=== PATIENT | male | born 1935 | race Caucasian/White ===

== ENCOUNTER → 2016-07-25 | Outpatient (CLI) | payer MEDICARE ==
--- NOTE | 2016-07-25 15:19 | MR ---
EXAMINATION TYPE: MR brain and iac wo con DATE OF EXAM: 07/25/2016 2:59 PM COMPARISON: NONE HISTORY: 80-year-old male with right hearing loss, tinnitus TECHNIQUE: Multiplanar, multisequence images of the brain and brainstem were acquired without IV con trast. Diffusion weighted imaging was performed. Additional coned-down sequences through the interna l auditory canals and posterior cranial fossa without IV contrast administration. FINDINGS: Diffusion weighted images demonstrate no evidence of an acute ischemic lesion in the brain. T2/FLAIR weighted sequences show scattered mild burden of bright white matter change with 5 foci in t he right and 5-10 foci on the left. Midline structures demonstrate enlargement of the pituitary gland with a craniocaudal dimension of 1. 0 cm. The craniocervical junction is normal. There is moderate generalized supratentorial volume loss. No hydrocephalus. There is no evidence of an acute intracranial hemorrhage, infarct, mass, mass-effect or an extra-axia l fluid collection. There is no cerebellopontine angle mass. The internal auditory canals are symmetric. Brainstem and skull base abnormalities are not seen. Moderate mucosal thickening throughout the ethmoid air cells and mild throughout the remainder of the paranasal sinuses. Globes are intact. There is extensive opacification of the right mastoid air cell s. IMPRESSION: 1. No acute intracranial abnormality seen. There is moderate atrophy and mild scattered burden of T2 bright white matter change likely relating to chronic small vessel ischemic disease. 2. Extensive opacification of the right mastoid air cells. Correlate for mastoiditis. Physical exam c an assess the tympanic membrane and middle ear to exclude a concurrent otitis media. 3. The pituitary gland measures large in a patient of this age. An underlying pituitary adenoma or cy st is difficult to exclude. Consider pituitary MRI to further evaluate. 4. 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
== END | disposition home or self-care (01) ==
LOC: RADMRIMAIN 12:53
PROVIDERS: ATTEND Nurse Practitioner Family
DX: H91.91 Unspecified hearing loss, right ear (principal); H93.11 Tinnitus, right ear
CPT/HCPCS: 70551; 82565; 84520

== ENCOUNTER → 2016-08-14 | Outpatient (CLI) | payer MEDICARE ==
--- NOTE | 2016-08-14 11:28 | MR ---
EXAMINATION TYPE: MR pituitary wo con DATE OF EXAM: 08/14/2016 10:57 AM COMPARISON: 07/25/2016 HISTORY: Pituitary gland enlargement, No contrast-GFR is 27 Technique: T1 noncontrast sagittal and T1 noncontrast fat saturation coronal, T2 coronal views of the sella turcica submitted. Findings: Exam significantly limited due to lack of contrast. Evaluation the pituitary typically requires contr ast however the patient's GFR was too low to receive contrast. GFR is 27. Relative to the previous study pituitary gland is stable in size. The pituitary stalk appears to be f airly midline. Visualized vasculature demonstrate normal signal voids. Pituitary gland measures 8 mm on today's exam is prominent for the patient's age group. Intracranial structures demonstrate mild degenerative changes. Craniocervical junction maintained. IMPRESSION: 1. Severely limited exam due to the lack of contrast secondary to the patient's low GFR (27). Grossly the pituitary gland measures 8 mm in size and the stalk appears midline. No evidence of pituitary cy st. Assessment for intrinsic neoplasm would require contrast administration.
== END | disposition home or self-care (01) ==
LOC: RADMRIMAIN 09:37
PROVIDERS: ATTEND Otolaryngology
DX: E23.6 Other disorders of pituitary gland (principal)
CPT/HCPCS: 36415; 70551; 82565

== ENCOUNTER 2016-11-21 17:12 | Emergency (ER) | payer MEDICARE ==
[2016-11-21 17:28] VITALS: RESP 18
--- NOTE | 2016-11-21 17:34 | ED ---
General Adult HPI - General Chief complaint: Wound/Laceration Stated complaint: Right Hand Lac Time Seen by Provider: 11/21/16 17:28 Source: patient, RN notes reviewed Mode of arrival: ambulatory Limitations: no limitations - History of Present Illness Initial comments: Patient is an 81-year-old male who presents emergency room today with a chief complaint of a injury to the left hand that occurred just prior to arrival. Does admit that he was using a table saw when piece of wood kicked back towards him and he caught the distal aspect of both the second and third digits of his left hand. Patient does admit that his tetanus is up-to-date. He admits that pain is local but denies any other complaints or symptoms currently at this time. Patient denies any recent fever, chills, shortness of breath, chest pain, back pain, abdominal pain, nausea or vomiting, numbness or tingling, dysuria or hematuria, constipation or diarrhea, headaches or visual changes, or any other complaints. - Related Data Home Medications Medication Instructions Recorded Confirmed Anagrelide [Agrylin] 1.5 mg PO AC-BRKFST 05/24/14 11/21/16 Anagrelide [Agrylin] 1.5 mg PO HS 05/24/14 11/21/16 Atenolol [Tenormin] 25 mg PO DAILY 05/24/14 11/21/16 Hydrochlorothiazide 25 mg PO DAILY 05/24/14 11/21/16 Hyoscyamine Sulfate [Levsin-Sl] 0.125 mg SL DAILY PRN 05/24/14 11/21/16 Lisinopril [Zestril] 10 mg PO AC-LUNCH 05/24/14 11/21/16 NIFEdipine XL [Procardia XL] 30 mg PO HS 05/24/14 11/21/16 [place]-3 Fatty Acids [[place]-3] 1,000 mg PO AC-SUPPER 05/24/14 11/21/16 Sodium Bicarbonate Tab 650 mg PO TID 05/24/14 11/21/16 Tamsulosin HCl [Flomax] 0.8 mg PO PC-SUPPER 05/24/14 11/21/16 Previous Rx's Medication Instructions Recorded Cephalexin [Keflex] 500 mg PO Q12HR 10 Days 11/21/16 Hydrocodone/Acetaminophen [[place] 1 each PO Q6HR PRN #10 tab 11/21/16 5-325] Allergies Allergy/AdvReac Type Severity Reaction Status Date / Time No Known Allergies Allergy Verified 11/21/16 17:28 Review of Systems ROS Statement: Those systems with pertinent positive or pertinent negative responses have been documented in the HPI. ROS Other: All systems not noted in ROS Statement are negative. 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 STOMACH CRAMPS OFF & ON- DIARRHEA LASTED 3-4 WEEKS IN 2013 History of Any Multi-Drug Resistant Organisms: None Reported Additional Past Surgical History / Comment(s): COLONOSCOPY 2004 Past Anesthesia/Blood Transfusion Reactions: No Reported Reaction Past Psychological History: No Psychological Hx Reported Smoking Status: Never smoker General Exam - General Exam Comments Initial Comments: General: The patient is awake and alert, in no distress, and does not appear acutely ill. Eye: Pupils are equal, round and reactive to light, extra-ocular movements are intact. No nystagmus. There is normal conjunctiva bilaterally. No signs of icterus. Ears, nose, mouth and throat: There are moist mucous membranes and no oral lesions. Neck: The neck is supple, there is no tenderness or JVD. Cardiovascular: There is a regular rate and rhythm. No murmur, rub or gallop is appreciated. Respiratory: Lungs are clear to auscultation, respirations are non-labored, breath sounds are equal. No wheezes, stridor, rales, or rhonchi. Musculoskeletal: Normal ROM, no tenderness. Strength 5/5. Sensation intact. Pulses equal bilaterally 2+. Neurological: A&O x 3. CN II-XII intact, There are no obvious motor or sensory deficits. Coordination appears grossly intact. Speech is normal. Skin: Patient does have laceration to the lateral aspect of the third digit running down the nailbed. No active bleeding. Patient does have a macerated injury laceration to the distal aspect of the second digit. Psychiatric: Cooperative, appropriate mood & affect, normal judgment. Limitations: no limitations Course Vital Signs 11/21/16 17:25 Temperature 97.4 F L Pulse Rate 90 Respiratory 18 Rate Blood Pressure 174/83 O2 Sat by Pulse 97 Oximetry Procedures - Procedures Initial comment: Patient does have a laceration distal tip of the second digit of the left hand. Area was anesthetized with 1% lidocaine at the head of the metacarpals. Area was heavily irrigated with saline. One suture was placed of 4-0 nylon in the volar aspect of the distal tip approximating wound edges. Remaining site has been avulsed in unsuturable. Gelfoam was placed over top of both the second and third posterior aspects of the distal digits. Nonstick sterile dressing placed over top. Medical Decision Making - Medical Decision Making Patient's x-ray reviewed and does show a distal fracture of the distal phalanx of the second digit of the left hand. Patient's wound was irrigated heavily here in the emergency room. One stitch was placed to approximate the volar aspect of the distal tip. Patient's nail has been completely removed and remaining wound is unsuturable. Patient did have Gelfoam placed over top. His tetanus is up-to-date he's been started on antibiotics. He is advised to follow -up with orthopedics in the next 1-2 days. Disposition Clinical Impression: Laceration Disposition: HOME SELF-CARE Condition: Good Instructions: Laceration (ED) Additional Instructions: Please follow-up with orthopedics tomorrow as discussed. Please change dressing once daily. Please use antibiotic as prescribed. Please use pain medication as discussed if needed. Please return to emergency room if any symptoms increase or worsen or for any other concerns. Prescriptions: Cephalexin [Keflex] 500 mg PO Q12HR 10 Days Hydrocodone/Acetaminophen [[place] 5-325] 1 each PO Q6HR PRN #10 tab PRN Reason: Pain Referrals: Halie Ruffin MD [Primary Care Provider] - 1-2 days Gerhard Bey DO [Doctor of Osteopathic Medicine] - 1-2 days Time of Disposition: 18:19
--- NOTE | 2016-11-21 17:51 | XR ---
EXAMINATION TYPE: XR hand complete RT DATE OF EXAM: 11/21/2016 COMPARISON: NONE HISTORY: Right second digit tablesaw injury TECHNIQUE: 3 views FINDINGS: The distal phalanx of the index finger demonstrates severe architectural distortion, with o nly its anterior cortex left partially intact. The severe injury extends down to the distal interphal angeal joint. There is associated artifact marked soft tissue swelling and soft tissue emphysematous changes. 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 IMPRESSION: Distal phalanx index finger tablesaw injury.
[2016-11-21] MEDS ORDERED: GELATIN SPONGE,ABSORB (SMALL) 1 EACH SPONGE TOPICAL STA (17:57)
[2016-11-21] MEDS ORDERED: ceFAZolin 1,000 MG VIAL IM STA (18:18)
[2016-11-21 18:46] VITALS: BP 168/78; PULSE 88; TEMP 97.8
--- NOTE | 2016-11-23 03:18 | CDI ---
Documentation Clarification OP Dear yoli NICHOLAS , Please do addendum to ED report that describes the length and depth of laceration repair finger. Thank you, ailyn barcenas superintendent radio communications. if you have any questions,please contact gallery manager at [phone]. MTDD
== END 2016-11-21 18:45 | disposition home or self-care (01) ==
LOC: EC 17:12
DX: S61.211A Laceration without foreign body of left index finger without damage to nail, initial encounter (principal); S61.313A Laceration without foreign body of left middle finger with damage to nail, initial encounter; I10 Essential (primary) hypertension; N42.9 Disorder of prostate, unspecified; Z79.899 Other long term (current) drug therapy; W29.8XXA Contact with other powered hand tools and household machinery, initial encounter
CPT/HCPCS: 99283; 12001; 96372; 73130; J0690

== ENCOUNTER → 2017-01-02 | Outpatient (CLI) | payer MEDICARE ==
--- NOTE | 2017-01-03 07:24 | US ---
EXAMINATION TYPE: US carotid duplex BILAT DATE OF EXAM: 01/02/2017 COMPARISON: NONE CLINICAL HISTORY: I11.9 Hypertensive heart ds w/o failure,R09.89. EXAM MEASUREMENTS: RIGHT: Peak Systolic Velocity (PSV) cm/sec ----- Right CCA: 72.6 ----- Right ICA: 81.2 ----- Right ECA: 95.6 ICA/CCA ratio: 1.1 RIGHT: End Diastole cm/sec ----- Right CCA: 11.5 ----- Right ICA: 17.5 ----- Right ECA: 5.0 LEFT: Peak Systolic Velocity (PSV) cm/sec ----- Left CCA: 71.1 ----- Left ICA: 90.0 ----- Left ECA: 63.8 ICA/CCA ratio: 1.3 LEFT: End Diastole cm/sec ----- Left CCA: 8.6 ----- Left ICA: 20.2 ----- Left ECA: 8.6 VERTEBRALS (direction of flow): Right Vertebral: Antegrade Left Vertebral: Antegrade Mild amount of plaque visualized on the right. Mild/moderate amount of plaque visualized in the left bulb. Arrythmia noted on the left. No elevated velocities visualized. No significant stenosis IMPRESSION: 1. Small amount of gooden scale plaquing within the left carotid bulb without hemodynamically significa nt stenosis of either carotid system. 2. Transient arrhythmia. Criteria for Assigning % of Stenosis / Diameter reduction (Estimation based on the indirect measurements of the internal carotid artery velocities (ICA PSV). 1. Normal (no stenosis)=ICA PSV < 125 cm/s: ratio < 2.0: ICA EDV<40 cm/s. 2. Less than 50% stenosis=ICA PSV < 125 cm/s: ratio < 2.0: ICA EDV<40 cm/s. 3. 50 to 69% stenosis=ICA PSV of 125 to 230 cm/s: ration 2.0 ? 4.0: ICA EDV 40-100 cm/s. 4. Greater than 70% stenosis to near occlusion= ICA PSV > 230 cm/s: ratio > 4.0: ICA EDV > 100 cm/s. 5. Near occlusion= ICA PSV velocities may be low or undetectable: variable ratio and ICA EDV. 6. Total occlusion=unable to detect flow.
--- NOTE | 2017-01-03 09:35 | ECHOF ---
Referral Reason:I11.9 Hypertensive heart ds w/o failure MEASUREMENTS -------- HEIGHT: 180.3 cm WEIGHT: 70.3 kg BP: 189/91 RVIDd: 2.8 cm (< 3.3) IVSd: 1.3 cm (0.6 - 1.1) LVIDd: 4.8 cm (3.9 - 5.3) LVPWd: 1.3 cm (0.6 - 1.1) IVSs: 1.9 cm LVIDs: 3.0 cm LVPWs: 1.7 cm LAESV Index (A-L): 44.89 ml/m Ao Diam: 4.0 cm (2.0 - 3.7) AV Cusp: 1.7 cm (1.5 - 2.6) LA Diam: 4.7 cm (2.7 - 3.8) MV EXCURSION: 19.436 mm (> 18.000) MV EF SLOPE: 114 mm/s (70 - 150) EPSS: 0.6 cm MV E Dallin: 0.77 m/s MV DecT: 280 ms MV A Dallin: 0.89 m/s MV E/A Ratio: 0.87 AR PHT: 565 ms RAP: 5.00 mmHg RVSP: 26.20 mmHg FINDINGS -------- Resting bradycardia (HR<60bpm). This was a technically good study. There is mild concentric left ventricular hypertrophy. Overall left ventricular systolic function is normal with, an EF between 55 - 60 %. The right ventricle is normal in size and function. LA is severely dilated >40 ml/m2 The right atrium is normal in size. Aortic valve is trileaflet and is mildly thickened. There is zmen-yp-lzojpbgg aortic regurgitation. There is no evidence of aortic stenosis. The mitral valve leaflets are mildly thickened. Vnhkdvsk-wa-kficpk mitral regurgitation is present. Trace tricuspid regurgitation present. There is no evidence of pulmonary hypertension. The right ventricular systolic pressure, as measured by Doppler, is 26.20mmHg. Trace/mild (physiologic) pulmonic regurgitation. There is borderline aortic root dilation. The pericardium is normal. There is a trivial pericardial effusion present. CONCLUSIONS -------- 1. Resting bradycardia (HR<60bpm). 2. Trace tricuspid regurgitation present. 3. There is no evidence of pulmonary hypertension. 4. The right ventricular systolic pressure, as measured by Doppler, is 26.20mmHg. 5. Trace/mild (physiologic) pulmonic regurgitation. 6. There is borderline aortic root dilation. 7. There is a trivial pericardial effusion present. 8. This was a technically good study. 9. There is mild concentric left ventricular hypertrophy. 10. Overall left ventricular systolic function is normal with, an EF between 55 - 60 %. 11. LA is severely dilated >40 ml/m2 12. Aortic valve is trileaflet and is mildly thickened. 13. There is gsve-wo-yztbipyc aortic regurgitation. 14. The mitral valve leaflets are mildly thickened. 15. Kvbbdpvc-hc-klbupy mitral regurgitation is present. SKI PATROL OFFICER: Hany Crocker RDCS
== END | disposition home or self-care (01) ==
LOC: RADECHMAIN 15:33
PROVIDERS: ATTEND Internal Medicine
DX: I08.3 Combined rheumatic disorders of mitral, aortic and tricuspid valves (principal); I31.3 Pericardial effusion (noninflammatory); I11.9 Hypertensive heart disease without heart failure; I65.21 Occlusion and stenosis of right carotid artery
CPT/HCPCS: 93306; 93880

== ENCOUNTER 2017-02-05 16:33 | Inpatient (IN) | payer MEDICARE ==
[2017-02-05] MEDS ORDERED: SODIUM CHLORIDE 0.9% 1,000 ML IV STA (16:35)
[2017-02-05 17:24] LABS: Anisocytosis Slight; Basophils # (A) 0.1 k/uL (0-0.2); Basophils % (A) 1 %; CH 28.9; CHCM 30.4; Eosinophils # (A) 0.4 k/uL (0-0.7); Eosinophils % (A) 5 %; HCT 27.1 % (39.0-53.0); HDW 3.15; HGB 8.2 gm/dL (13.0-17.5); Hypochromasia Marked; Luc % (Auto) 4; Lymphocytes # (A) 0.6 k/uL (1.0-4.8); Lymphocytes % (A) 8 %; MCH 29.1 pg (25.0-35.0); MCHC 30.3 g/dL (31.0-37.0); MCV 95.9 fL (80.0-100.0); Macrocytosis Slight; Mean Platelet Volume 9.1; Monocytes # (A) 0.5 k/uL (0-1.0); Monocytes % (A) 7 %; Neutrophils # (A) 5.7 k/uL (1.3-7.7); Neutrophils % (A) 75 %; RBC 2.82 m/uL (4.30-5.90); WBC 7.6 k/uL (3.8-10.6); WBC (Perox) 7.76
[2017-02-05 17:28] LABS: Calcium 8.6 mg/dL (8.4-10.2); Magnesium 2.2 mg/dL (1.6-2.3); Phosphorus 3.8 mg/dL (2.5-4.5); Potassium 4.7 mmol/L (3.5-5.1); Total Bilirubin 0.2 mg/dL (0.2-1.3); Total Protein 5.6 g/dL (6.3-8.2)
[2017-02-05 17:35] LABS: INR 1.1 (<1.2); Partial Thromboplastin Time 24.4 sec (22.0-30.0); Prothrombin Time 11.1 sec (9.0-12.0)
--- NOTE | 2017-02-05 17:40 | XR ---
EXAMINATION TYPE: XR chest 2V DATE OF EXAM: 02/05/2017 COMPARISON: NONE HISTORY: Difficulty breathing TECHNIQUE: Frontal and lateral views of the chest are obtained. FINDINGS: There is pulmonary edema. There is blunting of costophrenic angles. Heart is enlarged. The re are chest leads. Bony thorax is intact. IMPRESSION: Congestive heart failure with pleural effusions. Bilateral lower lobe pneumonia cannot b e excluded.
[2017-02-05 17:54] LABS: Creatine Kinase MB 4.2 ng/mL (0.0-2.4); Troponin I 0.09 ng/mL (0.000-0.034)
[2017-02-05] MEDS ORDERED: HEPARIN SODIUM,PORCINE 5,000 UNIT/ML 1 ML VIAL IV ONE (17:57)
[2017-02-05] MEDS ORDERED: IPRATROPIUM-ALBUTEROL 3 ML NEB INHALATION STA (17:57)
[2017-02-05] MEDS ORDERED: HEPARIN SODIUM,PORCINE 5,000 UNIT/ML 1 ML VIAL IV PRN (17:57)
[2017-02-05] MEDS ORDERED: LEVOFLOXACIN 750MG-D5W PMX 750 MG in DEXTROSE/WATER 1 150ML.BAG IVPB STA (17:58)
[2017-02-05] MEDS ORDERED: HEPARIN SODIUM,PORCINE/D5W PMX 25,000 UNIT in DEXTROSE/WATER 1 500ML.BAG IV SCH (18:00)
--- NOTE | 2017-02-05 18:00 | ED ---
General Adult HPI - General Chief complaint: Shortness of Breath Stated complaint: DEANNA Time Seen by Provider: 02/05/17 16:35 Source: patient, EMS, RN notes reviewed, old records reviewed Mode of arrival: EMS Limitations: no limitations - History of Present Illness Initial comments: This is an 81-year-old man to the ER for evaluation of shortness of breath. Patient has severe shortness of breath. Patient just got back from [place] traveling, patient states he during he was short of breath only get exertional shortness of breath as it is directly similar issues before the past. He states he thought he had upper respiratory infections and entire trip. Patient returned from his flight 2 days ago. Again no fevers. No significant chest pain mainly shortness of breath. Patient is a history of high blood pressure no history of heart disease - Related Data Home Medications Medication Instructions Recorded Confirmed NIFEdipine XL [Procardia XL] 30 mg PO QAM 05/24/14 02/05/17 Sodium Bicarbonate Tab 1,300 mg PO BID 05/24/14 02/05/17 Tamsulosin HCl [Flomax] 0.8 mg PO HS 05/24/14 02/05/17 Allopurinol [Zyloprim] 150 mg PO PC-LUNCH 02/05/17 02/05/17 Anagrelide HCl [Agrylin] 1 mg PO BID@1200,1500 02/05/17 02/05/17 Aspirin 81 mg PO HS 02/05/17 02/05/17 Bisoprolol-Hctz 10-6.25 mg [Ziac 1 tab PO QAM 02/05/17 02/05/17 10-6.25] Lisinopril-Hctz 10-12.5 mg 1 tab PO W/LUNCH 02/05/17 02/05/17 [Zestoretic 10-12.5] Multivitamins, Thera [Multivitamin 1 tab PO AC-BID 02/05/17 02/05/17 (formulary)] Allergies Allergy/AdvReac Type Severity Reaction Status Date / Time No Known Allergies Allergy Verified 02/05/17 18:02 Review of Systems ROS Statement: Those systems with pertinent positive or pertinent negative responses have been documented in the HPI. ROS Other: All systems not noted in ROS Statement are negative. 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 STOMACH CRAMPS OFF & ON- DIARRHEA LASTED 3-4 WEEKS IN 2013 History of Any Multi-Drug Resistant Organisms: None Reported Additional Past Surgical History / Comment(s): COLONOSCOPY 2004 Past Anesthesia/Blood Transfusion Reactions: No Reported Reaction Past Psychological History: No Psychological Hx Reported Smoking Status: Never smoker General Exam Limitations: no limitations General appearance: alert, anxious, in distress Head exam: Present: atraumatic, normocephalic, normal inspection Eye exam: Present: normal appearance, PERRL, EOMI. Absent: scleral icterus, conjunctival injection, periorbital swelling ENT exam: Present: normal exam, mucous membranes moist Neck exam: Present: normal inspection. Absent: tenderness, meningismus, lymphadenopathy Respiratory exam: Present: normal lung sounds bilaterally, respiratory distress , wheezes, rales, accessory muscle use, decreased breath sounds, prolonged expiratory. Absent: rhonchi, stridor Cardiovascular Exam: Present: regular rate, normal rhythm, normal heart sounds. Absent: systolic murmur, diastolic murmur, rubs, gallop, clicks GI/Abdominal exam: Present: soft, normal bowel sounds. Absent: distended, tenderness, guarding, rebound, rigid Extremities exam: Present: normal inspection, full ROM, normal capillary refill. Absent: tenderness, pedal edema, joint swelling, calf tenderness Back exam: Present: normal inspection Neurological exam: Present: alert, oriented X3, CN II-XII intact Psychiatric exam: Present: normal affect, normal mood Skin exam: Present: warm, dry, intact, normal color. Absent: rash Course Vital Signs 02/05/17 02/05/17 17:07 18:05 Temperature 98.4 F Pulse Rate 82 79 Respiratory 22 20 Rate Blood Pressure 179/84 191/93 O2 Sat by Pulse 92 L 93 L Oximetry - Reevaluation(s) Reevaluation #1: 02/05/17 18:42 Patient does have improved blood pressure and heart failure, given a breathing treatment started on antibiotics EKG Findings - EKG Comments: EKG Findings:: EKG shows sinus rhythm rate of 83, para 210, QRS 146, QTc 521 Medical Decision Making - Medical Decision Making 81 male EF reevaluation significant shortness of breath, multifactorial respiratory failure. Hypoxia. Patient has CHF likely pneumonia and will be admitted for treatment of both. Patient needs rehydration secondary to renal failure blood pressure control patient also has elevated troponin, we'll check cardiac enzymes and get echo - Lab Data Result diagrams: 02/05/17 17:05 02/05/17 17:05 Lab Results 02/05/17 02/05/17 02/05/17 Range/Units 17:05 17:05 17:05 WBC 7.6 (3.8-10.6) k/uL RBC 2.82 L (4.30-5.90) m/uL Hgb 8.2 L (13.0-17.5) gm/dL Hct 27.1 L (39.0-53.0) % MCV 95.9 (80.0-100.0) fL MCH 29.1 (25.0-35.0) pg MCHC 30.3 L (31.0-37.0) g/dL RDW 18.0 H (11.5-15.5) % Plt Count 505 H (150-450) k/uL Neutrophils % 75 % Lymphocytes % 8 % Monocytes % 7 % Eosinophils % 5 % Basophils % 1 % Neutrophils # 5.7 (1.3-7.7) k/uL Lymphocytes # 0.6 L (1.0-4.8) k/uL Monocytes # 0.5 (0-1.0) k/uL Eosinophils # 0.4 (0-0.7) k/uL Basophils # 0.1 (0-0.2) k/uL Hypochromasia Marked Anisocytosis Slight Macrocytosis Slight PT (9.0-12.0) sec INR (<1.2) APTT (22.0-30.0) sec D-Dimer (<0.60) mg/L FEU Sodium 148 H (137-145) mmol/L Potassium 4.7 (3.5-5.1) mmol/L Chloride 117 H (98-107) mmol/L Carbon Dioxide 21 L (22-30) mmol/L Anion Gap 10 mmol/L BUN 57 H (9-20) mg/dL Creatinine 2.45 H (0.66-1.25) mg/dL Est GFR (MDRD) Af Amer 31 (>60 ml/min/1.73 sqM) Est GFR (MDRD) Non-Af 26 (>60 ml/min/1.73 sqM) Glucose 105 H (74-99) mg/dL Calcium 8.6 (8.4-10.2) mg/dL Phosphorus 3.8 (2.5-4.5) mg/dL Magnesium 2.2 (1.6-2.3) mg/dL Total Bilirubin 0.2 (0.2-1.3) mg/dL AST 21 (17-59) U/L ALT 38 (21-72) U/L Alkaline Phosphatase 41 (38-126) U/L Total Creatine Kinase 172 H (55-170) U/L CK-MB (CK-2) 4.2 H* (0.0-2.4) ng/mL CK-MB (CK-2) Rel Index 2.4 Troponin I 0.090 H* (0.000-0.034) ng/mL NT-Pro-B Natriuret Pep pg/mL Total Protein 5.6 L (6.3-8.2) g/dL Albumin 3.1 L (3.5-5.0) g/dL 02/05/17 02/05/17 Range/Units 17:05 17:05 WBC (3.8-10.6) k/uL RBC (4.30-5.90) m/uL Hgb (13.0-17.5) gm/dL Hct (39.0-53.0) % MCV (80.0-100.0) fL MCH (25.0-35.0) pg MCHC (31.0-37.0) g/dL RDW (11.5-15.5) % Plt Count (150-450) k/uL Neutrophils % % Lymphocytes % % Monocytes % % Eosinophils % % Basophils % % Neutrophils # (1.3-7.7) k/uL Lymphocytes # (1.0-4.8) k/uL Monocytes # (0-1.0) k/uL Eosinophils # (0-0.7) k/uL Basophils # (0-0.2) k/uL Hypochromasia Anisocytosis Macrocytosis PT 11.1 (9.0-12.0) sec INR 1.1 (<1.2) APTT 24.4 (22.0-30.0) sec D-Dimer 1.43 H (<0.60) mg/L FEU Sodium (137-145) mmol/L Potassium (3.5-5.1) mmol/L Chloride (98-107) mmol/L Carbon Dioxide (22-30) mmol/L Anion Gap mmol/L BUN (9-20) mg/dL Creatinine (0.66-1.25) mg/dL Est GFR (MDRD) Af Amer (>60 ml/min/1.73 sqM) Est GFR (MDRD) Non-Af (>60 ml/min/1.73 sqM) Glucose (74-99) mg/dL Calcium (8.4-10.2) mg/dL Phosphorus (2.5-4.5) mg/dL Magnesium (1.6-2.3) mg/dL Total Bilirubin (0.2-1.3) mg/dL AST (17-59) U/L ALT (21-72) U/L Alkaline Phosphatase (38-126) U/L Total Creatine Kinase (55-170) U/L CK-MB (CK-2) (0.0-2.4) ng/mL CK-MB (CK-2) Rel Index Troponin I (0.000-0.034) ng/mL NT-Pro-B Natriuret Pep 82115 pg/mL Total Protein (6.3-8.2) g/dL Albumin (3.5-5.0) g/dL - Radiology Data Radiology results: report reviewed (Chest x-ray shows positive pulmonary vascular congestion probable underlying effusion with pneumonia), image reviewed Critical Care Time Critical Care Time: Yes Total Critical Care Time: 31 Disposition Clinical Impression: Community acquired pneumonia, Acute pulmonary edema, Congestive heart failure, Hypertension, Elevated troponin, ARF (acute renal failure), Hypoxia Disposition: ADMITTED IP TO THIS [facility] Condition: Fair Referrals: Nonstaff,Physician [Primary Care Provider] - 1-2 days
[2017-02-05] MEDS ORDERED: ASPIRIN 81 MG PO STA (18:34)
[2017-02-05] MEDS ORDERED: NITROGLYCERIN SL TABS 0.4 MG TAB SUBLINGUAL PRN (18:34)
[2017-02-05] MEDS ORDERED: PNEUMONIA PROTOCOL UTILIZED 1 EACH MISC PO PRN (18:34)
--- NOTE | 2017-02-05 19:40 | NM ---
EXAMINATION TYPE: NM pul vent and perfuse DATE OF EXAM: 02/05/2017 COMPARISON: NONE HISTORY: TECHNIQUE: Utilizing inhalation of 75.9 mCi Tc 99m DTPA aerosol and intravenous injection of 4.8 mCi of Tc 99m MAA, ventilation and perfusion images are acquired post injection in multiple projections. FINDINGS: There is a matched defect on the right posterior hemithorax consistent with pleural effusion. I see n o ventilation/perfusion mismatch. IMPRESSION: Matched defect in the right lung consistent with moderate pleural effusion. There is a low probabilit y of pulmonary embolism.
[2017-02-05] MEDS: IPRATROPIUM-ALBUTEROL 3 ML NEB INHALATION SCH (19:45)
[2017-02-05] MEDS ORDERED: ENALAPRILAT 1.25 MG/ML 1 ML VIAL IVP SCH (20:00)
[2017-02-05] MEDS: FUROSEMIDE 10 MG/ML 4 ML VIAL IV SCH (20:02)
[2017-02-05] MEDS ORDERED: hydrALAZINE HCL 10 MG TAB PO PRN (20:39)
--- NOTE | 2017-02-05 21:02 | US ---
EXAMINATION TYPE: US venous doppler duplex LE DATE OF EXAM: 02/05/2017 6:41 PM COMPARISON: NONE CLINICAL HISTORY: Pain. DEANNA SIDE PERFORMED: Bilateral TECHNIQUE: The lower extremity deep venous system is examined utilizing real time linear array sonog keyur with graded compression, doppler sonography and color-flow sonography. VESSELS IMAGED: External Iliac Vein (EIV) Common Femoral Vein Deep Femoral Vein Greater Saphenous Vein * Femoral Vein Popliteal Vein Small Saphenous Vein * Proximal Calf Veins (* superficial vessels) No evidence of DVT bilateral legs Right Leg: Negative for DVT Left Leg: Negative for DVT IMPRESSION: Normal exam. No evidence of deep venous thrombosis in both legs.
[2017-02-05 21:29] LABS: Appearance,Urine Clear (Clear); Bilirubin,Urine Negative (Negative); Glucose,Urine (UA) Negative (Negative); Ketones,Urine Negative (Negative); Leukocyte Esterase,Urine Negative (Negative); Nitrite,Urine Negative (Negative); PH, Urine 6.5 (5.0-8.0); Particle Count 370; Protein,Urine Negative (Negative); RBC,Urine 6 /hpf (0-5); Specific Gravity,Urine 1.006 (1.001-1.035); Squamous Epithelial Cell,Urine <1 /hpf (0-4); UA Billing (MACRO vs. MICRO) MICRO; Urobilinogen,Urine <2.0 mg/dL (<2.0); WBC,Urine 1 /hpf (0-5)
--- NOTE | 2017-02-05 21:54 | P.HPIM ---
History of Present Illness H&P Date: 02/05/17 Chief Complaint: Shortness of breath with exertion The patient is a 81-year-old male with a past history of essential hypertension and stage IV chronic kidney disease, chronic thrombocytosis that presents to the ER with complaints of severe shortness of breath related to exertion that has persistently gotten worse in the last 3 weeks, he reports a nonproductive cough and bilateral lower extremity swelling that is worsening. He denies any chest pain, or subjective fevers chills or night sweats. The patient was recently in [place] and had these symptoms that are worsened by exertion such as climbing stairs and improved with rest. He denies any sick contacts. He reports that his manager of information recently started him on sodium bicarb otherwise there's been no change in his medications. He denies any other complaints. In the ER he had a chest x-ray, admission labs were abnormal with elevated troponin at 0.09, creatinine at 2.45, hemoglobin and hematocrit 8.2 and 27.1 respectively, serum pro BNP was 16 700. Chest x-ray was consistent with pleural effusion bilateral pneumonia not excluded Past Medical History Past Medical History: Hypertension, Prostate Disorder, Renal Disease Additional Past Medical History / Comment(s): ANEMIA R/T REDUCED KIDNEY FUNCTION 30%. STOMACH CRAMPS OFF & ON- DIARRHEA LASTED 3-4 WEEKS IN 2013 History of Any Multi-Drug Resistant Organisms: None Reported Additional Past Surgical History / Comment(s): COLONOSCOPY 2004 Past Anesthesia/Blood Transfusion Reactions: No Reported Reaction Past Psychological History: No Psychological Hx Reported Smoking Status: Never smoker - Past Family History Father Family Medical History: Cancer, Hypertension, Renal Disease Additional Family Medical History / Comment(s): Kidney Cancer Medications and Allergies Home Medications Medication Instructions Recorded Confirmed Type NIFEdipine XL [Procardia XL] 30 mg PO QAM 05/24/14 02/05/17 History Sodium Bicarbonate Tab 1,300 mg PO BID 05/24/14 02/05/17 History Tamsulosin HCl [Flomax] 0.8 mg PO HS 05/24/14 02/05/17 History Allopurinol [Zyloprim] 150 mg PO PC-LUNCH 02/05/17 02/05/17 History Anagrelide HCl [Agrylin] 1 mg PO BID@1200,1500 02/05/17 02/05/17 History Aspirin 81 mg PO HS 02/05/17 02/05/17 History Bisoprolol-Hctz 10-6.25 mg [Ziac 1 tab PO QAM 02/05/17 02/05/17 History 10-6.25] Lisinopril-Hctz 10-12.5 mg 1 tab PO W/LUNCH 02/05/17 02/05/17 History [Zestoretic 10-12.5] Multivitamins, Thera [Multivitamin 1 tab PO AC-BID 02/05/17 02/05/17 History (formulary)] Allergies Allergy/AdvReac Type Severity Reaction Status Date / Time No Known Allergies Allergy Verified 02/05/17 18:02 Physical Exam Vitals: Vital Signs Temp Pulse Resp BP Pulse Ox 02/05/17 21:23 98.2 F 98 22 197/95 95 02/05/17 20:03 75 20 195/93 96 02/05/17 19:57 76 02/05/17 18:05 79 20 191/93 93 L 02/05/17 17:07 98.4 F 82 22 179/84 92 L Intake and Output 02/05/17 02/05/17 02/05/17 06:59 14:59 22:59 Other: Weight 70.307 kg Patient Weight 02/06/17 06:59 Weight 70.307 kg Constitutional: No acute distress, conversant, pleasant Eyes: Anicteric sclerae, moist conjunctiva, no lid-lag, PERRLA ENMT: NC/AT,Oropharynx clear, no erythema, exudates Neck:Supple, FROM, no masses, or JVD, No carotid bruits; No thyromegaly Lungs: Clear to auscultation, Clear to percussion, Normal respiratory effort, no accessory muscle use Cardiovascular: Heart regular in rate and rhythm, No murmurs, gallops, or rubs no peripheral edema Abdominal: Soft Nontender, nom distended, no guarding, no rebound or rigidity, Normoactive bowel sounds No hepatomegaly, No splenomegaly, No palpable mass No abdominal wall hernia noted Skin: Normal temperature, tone, texture, turgor, No induration No subcutaneous nodules, No rash, lesions, No ulcers Extremities:No digital cyanosis No clubbing, Pedal pulses intact and symmetrical Radial pulses intact and symmetrical Normal gait and station, No calf tenderness Psychiatric: Alert and oriented to person, place and time, Appropriate affect Intact judgement Neuro: Muscles Strength 5/5 in all 4 extremities, Sensation to light touch grossly present throughout, Cranial nerves II-XII grossly intact. No focal sensory deficits Results CBC & Chem 7: 02/06/17 04:20 02/05/17 17:05 Labs: Abnormal Lab Results - Last 24 Hours (Table) 02/05/17 02/05/17 02/05/17 Range/Units 17:05 17:05 17:05 RBC 2.82 L (4.30-5.90) m/uL Hgb 8.2 L (13.0-17.5) gm/dL Hct 27.1 L (39.0-53.0) % MCHC 30.3 L (31.0-37.0) g/dL RDW 18.0 H (11.5-15.5) % Plt Count 505 H (150-450) k/uL Lymphocytes # 0.6 L (1.0-4.8) k/uL D-Dimer (<0.60) mg/L FEU Sodium 148 H (137-145) mmol/L Chloride 117 H (98-107) mmol/L Carbon Dioxide 21 L (22-30) mmol/L BUN 57 H (9-20) mg/dL Creatinine 2.45 H (0.66-1.25) mg/dL Glucose 105 H (74-99) mg/dL Total Creatine Kinase 172 H (55-170) U/L CK-MB (CK-2) 4.2 H* (0.0-2.4) ng/mL Troponin I 0.090 H* (0.000-0.034) ng/mL Total Protein 5.6 L (6.3-8.2) g/dL Albumin 3.1 L (3.5-5.0) g/dL Urine Blood (Negative) Urine RBC (0-5) /hpf 02/05/17 02/05/17 Range/Units 17: 21:18 RBC (4.30-5.90) m/uL Hgb (13.0-17.5) gm/dL Hct (39.0-53.0) % MCHC (31.0-37.0) g/dL RDW (11.5-15.5) % Plt Count (150-450) k/uL Lymphocytes # (1.0-4.8) k/uL D-Dimer 1.43 H (<0.60) mg/L FEU Sodium (137-145) mmol/L Chloride (98-107) mmol/L Carbon Dioxide (22-30) mmol/L BUN (9-20) mg/dL Creatinine (0.66-1.25) mg/dL Glucose (74-99) mg/dL Total Creatine Kinase (55-170) U/L CK-MB (CK-2) (0.0-2.4) ng/mL Troponin I (0.000-0.034) ng/mL Total Protein (6.3-8.2) g/dL Albumin (3.5-5.0) g/dL Urine Blood Small H (Negative) Urine RBC 6 H (0-5) /hpf Assessment and Plan (1) Accelerated hypertension Status: Acute (2) Exertional dyspnea Status: Acute (3) Chronic kidney disease, stage IV (severe) Status: Acute (4) Elevated troponin Status: Acute (5) Mitral regurgitation Status: Acute Plan: The patient is admitted to the telemetry floor anticipate a greater than Two midnight stay after presenting with exertional dyspnea and a hypervolemic exam concerning for possible underlying CHF given his elevated pro-NT BNP and chest x -ray suggestive of CHF with pleural effusions, agree with starting him on Lasix. Review of his prior echocardiogram done on 01/02/17 indicated normal ejection fraction of 55-60% but did show a severely dilated left atrium and moderate to severe mitral regurgitation. Cardiology is consulted given the patient's elevated serum troponin which could be benign due to poor renal clearance given his stage IV CKD, we'll continue to trend enzymes, his initial EKG was negative for any acute ischemia did show sinus rhythm. His d-dimer was elevated and the patient has been started on heparin drip to cover for PE pending his VQ scan. We'll discontinue his Levaquin as clinically the patient does not have any sick systemic signs of infection and he has pretty bad kidney disease, we'll consult nephrology for further recommendations continue his sodium bicarbonate. Patient started on hydralazine and Cardizem by mouth to control his blood pressure. We'll continue to monitor his clinical course
[2017-02-05] MEDS ORDERED: DILTIAZEM ORAL 60 MG TAB PO STA (22:08)
[2017-02-05 22:37] VITALS: BMI 24.0
[2017-02-05] MEDS: SODIUM BICARBONATE TAB 650 MG TAB PO SCH (22:51)
[2017-02-06] MEDS: IPRATROPIUM-ALBUTEROL 3 ML NEB INHALATION SCH ×6 (00:23→19:53)
[2017-02-06 01:17] LABS: Creatine Kinase MB 3.8 ng/mL (0.0-2.4); Troponin I 0.058 ng/mL (0.000-0.034)
[2017-02-06 04:37] LABS: Anisocytosis Slight; Aty Lym Flag Slight; Basophils # (A) 0.1 k/uL (0-0.2); Basophils % (A) 2 %; CH 28.8; CHCM 29.9; Eosinophils # (A) 0.3 k/uL (0-0.7); Eosinophils % (A) 4 %; HCT 25.6 % (39.0-53.0); HDW 3.07; HGB 7.7 gm/dL (13.0-17.5); Hypochromasia Marked; Luc % (Auto) 5; Lymphocytes # (A) 0.6 k/uL (1.0-4.8); Lymphocytes % (A) 9 %; MCV 96.9 fL (80.0-100.0); Macrocytosis Slight; Mean Platelet Volume 9.2; Monocytes # (A) 0.4 k/uL (0-1.0); Monocytes % (A) 7 %; Neutrophils # (A) 4.6 k/uL (1.3-7.7); Neutrophils % (A) 74 %; RBC 2.64 m/uL (4.30-5.90); RDW 18.3 % (11.5-15.5); WBC 6.2 k/uL (3.8-10.6); WBC (Perox) 6.49
[2017-02-06 04:58] LABS: Manual Review Performed
[2017-02-06 04:59] LABS: Large Platelets Present; Ovalocytes Present
[2017-02-06 05:28] LABS: Creatine Kinase MB 3.3 ng/mL (0.0-2.4); Troponin I 0.068 ng/mL (0.000-0.034)
[2017-02-06 05:32] LABS: Cholesterol 126 mg/dL (<200); HDL Cholesterol 42 mg/dL (40-60)
[2017-02-06] MEDS: MULTIVITAMINS, THERA 1 EACH TAB PO SCH ×2 (06:09→17:10)
[2017-02-06] MEDS: FUROSEMIDE 10 MG/ML 4 ML VIAL IV SCH ×2 (06:09→17:11)
[2017-02-06 07:52] LABS: Calcium 8.6 mg/dL (8.4-10.2); Potassium 4.8 mmol/L (3.5-5.1)
--- NOTE | 2017-02-06 07:57 | XR ---
EXAMINATION TYPE: XR chest 2V DATE OF EXAM: 02/06/2017 COMPARISON: 02/05/2017 HISTORY: 81-year-old male follow-up pneumonia TECHNIQUE: Frontal and lateral views FINDINGS: Heart is borderline enlarged. Obscuration of the lower aortic dissection. Diffuse interstitial opacit ies persist. More focal right basilar opacity shows slight improvement but also persists. Small effus ion seen on the lateral view. IMPRESSION: 1. Borderline heart size with interstitial changes and small effusions. Correlate for continued mild- to-moderate CHF. 2. Right basilar consolidation/infiltrate shows slight improvement.
--- NOTE | 2017-02-06 08:57 | P.CRDCN ---
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 The patient has a past medical history consistent of hypertension and stage IV chronic kidney disease. The patient just came from a trip from [place]. Since then he has been experiencing progressive exertional dyspnea without orthopnea and without any PND. Also he developed bilateral lower extremities edema and weakness in the legs. No chest pain or chest discomfort. Denies having any fever or chills but he stated that he had some dry cough. The chest x-ray showed bilateral pleural effusion. The BNP came in to be around 16,000. The troponin is slightly elevated but is flattened and does not reflect an acute myocardial infarction. Beside that the EKG showed sinus rhythm without any significant ST or T-wave abnormalities. As I mentioned earlier the patient did not have any symptoms of chest pain or chest discomfort. The hemoglobin was low. The creatinine was elevated and he is known to have stage IV chronic kidney disease. He is not aware of any prior history of coronary artery disease or congestive heart failure or cardiac arrhythmia in the past. Recently he underwent an echocardiogram by his primary care physician which I reviewed and it showed normal LV function with mild LVH and valvular heart disease consistent of aortic sclerosis with [id number] aortic insufficiency and moderate to severe mitral regurgitation. 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 STOMACH CRAMPS OFF & ON- DIARRHEA LASTED 3-4 WEEKS IN 2013 History of Any Multi-Drug Resistant Organisms: None Reported Past Surgical History: Tonsillectomy Additional Past Surgical History / Comment(s): COLONOSCOPY 2004 Past Anesthesia/Blood Transfusion Reactions: No Reported Reaction Past Psychological History: No Psychological Hx Reported Smoking Status: Never smoker - Past Family History Father Family Medical History: Cancer, Hypertension, Renal Disease Additional Family Medical History / Comment(s): Kidney Cancer Medications and Allergies Home Medications Medication Instructions Recorded Confirmed Type NIFEdipine XL [Procardia XL] 30 mg PO QAM 05/24/14 02/05/17 History Sodium Bicarbonate Tab 1,300 mg PO BID 05/24/14 02/05/17 History Tamsulosin HCl [Flomax] 0.8 mg PO HS 05/24/14 02/05/17 History Allopurinol [Zyloprim] 150 mg PO PC-LUNCH 02/05/17 02/05/17 History Anagrelide HCl [Agrylin] 1 mg PO BID@1200,1500 02/05/17 02/05/17 History Aspirin 81 mg PO HS 02/05/17 02/05/17 History Bisoprolol-Hctz 10-6.25 mg [Ziac 1 tab PO QAM 02/05/17 02/05/17 History 10-6.25] Lisinopril-Hctz 10-12.5 mg 1 tab PO W/LUNCH 02/05/17 02/05/17 History [Zestoretic 10-12.5] Multivitamins, Thera [Multivitamin 1 tab PO AC-BID 02/05/17 02/05/17 History (formulary)] Allergies Allergy/AdvReac Type Severity Reaction Status Date / Time No Known Allergies Allergy Verified 02/05/17 18:02 Physical Exam Vitals: Vital Signs Temp Pulse Pulse Resp BP BP Pulse Ox 02/06/17 07:35 84 02/06/17 07:24 84 02/06/17 04:00 97.6 F 73 20 147/78 90 L 02/06/17 00:55 80 20 141/61 91 L 02/06/17 00:32 74 02/06/17 00:22 77 02/05/17 23:00 97.0 F L 84 20 165/79 94 L 02/05/17 22:00 97.0 F L 96 20 191/77 92 L 02/05/17 21:23 98.2 F 98 22 197/95 95 02/05/17 20:03 75 20 195/93 96 02/05/17 19:57 76 02/05/17 18:05 79 20 191/93 93 L 02/05/17 17:07 98.4 F 82 22 179/84 92 L Intake and Output 02/05/17 02/06/17 02/06/17 22:59 06:59 14:59 Intake Total 300.987 Output Total 400 950 Balance -400 -649.013 Intake: Intake, IV Titration 300.987 Amount Heparin Sodium,Porcine/ 150.987 D5w Pmx 25,000 unit In Dextrose/Water 1 500ml. bag @ 12 UNITS/KG/HR 16. 87 mls/hr IV .[facility]H [facility] Rx #:[id number] Levofloxacin 750Mg-D5w 150 Pmx 750 mg In Dextrose/ Water 1 150ml.bag @ 100 mls/hr IVPB ONCE STA Rx#: [id number] Output: Urine 400 950 Other: Voiding Method Urinal Weight 78.3 kg 78.3 kg Results 02/06/17 04:20 02/06/17 04:20 Cardiac Enzymes 02/05/17 02/05/17 02/06/17 Range/Units 17:05 17:05 00:24 AST 21 (17-59) U/L CK-MB (CK-2) 4.2 H* 3.8 H* (0.0-2.4) ng/mL Troponin I 0.090 H* 0.058 H* (0.000-0.034) ng/mL 02/06/17 Range/Units 04:20 AST (17-59) U/L CK-MB (CK-2) 3.3 H* (0.0-2.4) ng/mL Troponin I 0.068 H* (0.000-0.034) ng/mL Coagulation 02/05/17 02/06/17 Range/Units 17:05 04:20 PT 11.1 (9.0-12.0) sec APTT 24.4 30.3 H (22.0-30.0) sec Lipids 02/06/17 Range/Units 04:20 Triglycerides 66 (<150) mg/dL Cholesterol 126 (<200) mg/dL HDL Cholesterol 42 (40-60) mg/dL CBC 02/05/17 02/06/17 Range/Units 17:05 04:20 WBC 7.6 6.2 (3.8-10.6) k/uL RBC 2.82 L 2.64 L (4.30-5.90) m/uL Hgb 8.2 L 7.7 L (13.0-17.5) gm/dL Hct 27.1 L 25.6 L (39.0-53.0) % Plt Count 505 H 460 H (150-450) k/uL Comprehensive Metabolic Panel 02/05/17 02/06/17 Range/Units 17:05 04:20 Sodium 148 H 148 H (137-145) mmol/L Potassium 4.7 4.8 (3.5-5.1) mmol/L Chloride 117 H 117 H (98-107) mmol/L Carbon Dioxide 21 L 20 L (22-30) mmol/L BUN 57 H 57 H (9-20) mg/dL Creatinine 2.45 H 2.54 H (0.66-1.25) mg/dL Glucose 105 H 101 H (74-99) mg/dL Calcium 8.6 8.6 (8.4-10.2) mg/dL AST 21 (17-59) U/L ALT 38 (21-72) U/L Alkaline Phosphatase 41 (38-126) U/L Total Protein 5.6 L (6.3-8.2) g/dL Albumin 3.1 L (3.5-5.0) g/dL Current Medications Generic Name Dose Route Start Last Admin Trade Name Freq PRN Reason Stop Dose Admin Albuterol/Ipratropium 3 ml 02/05/17 20:00 02/06/17 07:24 Duoneb 0.5 Mg-3 Mg/3 Ml Soln INHALATION 3 ml RT-Q4H [facility] Administration Anagrelide HCl 1 mg 02/06/17 12:00 Agrylin PO BID@1200,1500 [facility] Aspirin 325 mg 02/06/17 09:00 Aspirin PO DAILY [facility] Atorvastatin Calcium 80 mg 02/06/17 09:00 Lipitor PO DAILY [facility] Diltiazem HCl 180 mg 02/06/17 09:00 Cardizem Cd PO DAILY [facility] Furosemide 40 mg 02/05/17 19:15 02/06/17 06:09 Lasix IV 40 mg BID@0600,1800 [facility] Administration Heparin Sodium (Porcine) 0 unit 02/05/17 17:57 02/06/17 06:09 Heparin IV 3,900 unit PER PROTOCOL PRN Administration Low PTT Protocol Hydralazine HCl 10 mg 02/05/17 20:39 Apresoline PO Q6H PRN Blood Pressure - High Heparin Sodium/Dextrose 25,000 500 mls @ 16.87 mls/hr 02/05/17 18:00 06:09 unit/ IV Solution IV 15 units/kg/hr .Q24H [facility] 21.09 mls/hr Protocol Titration 12 UNITS/KG/HR Miscellaneous Information 1 each 02/05/17 18:34 Pneumonia Protocol Utilized PO ONCE PRN Per Protocol Multivitamins 1 each 02/06/17 07:30 02/06/17 06:09 Theragran PO 1 each AC-BID [facility] Administration Nitroglycerin 0.4 mg 02/05/17 18:34 Nitrostat SUBLINGUAL Q5M PRN Chest Pain Sodium Bicarbonate 1,300 mg 02/05/17 22:15 02/05/17 22:51 Sodium Bicarbonate Tab PO 1,300 mg BID [facility] Administration Tamsulosin HCl 0.8 mg 02/06/17 21:00 Flomax PO HS [facility] Intake and Output 02/05/17 02/06/17 02/06/17 22:59 06:59 14:59 Intake Total 300.987 Output Total 400 950 Balance -400 -649.013 Intake: Intake, IV Titration 300.987 Amount Heparin Sodium,Porcine/ 150.987 D5w Pmx 25,000 unit In Dextrose/Water 1 500ml. bag @ 12 UNITS/KG/HR 16. 87 mls/hr IV .Q24H [facility] Rx #:[id number] Levofloxacin 750Mg-D5w 150 Pmx 750 mg In Dextrose/ Water 1 150ml.bag @ 100 mls/hr IVPB ONCE STA Rx#: [id number] Output: Urine 400 950 Other: Voiding Method Urinal Weight 78.3 kg 78.3 kg 02/06/17 04:20 02/06/17 04:20 Assessment and Plan Plan: This is a pleasant 81-year-old gentleman with hypertension and advanced chronic kidney disease presented to the hospital with progressive dyspnea and bilateral lower extremities edema. The patient was diagnosed with congestive heart failure exacerbation secondary to diastolic dysfunction and valvular heart disease. Agree to keep the patient on the current above dose of Lasix IV. Monitor the creatinine and electrolytes. The troponin does not reflect acute myocardial infarction and is likely secondary to chronic kidney disease. I am going to DC the heparin IV in view of the low hemoglobin. Continue the aspirin, statin, and calcium channel spencer. No need for echocardiogram in review of recent echocardiogram which described above. Thank you for allowing us participate in his care
[2017-02-06] MEDS ORDERED: ATORVASTATIN 80 MG TAB PO SCH (09:00)
[2017-02-06] MEDS: ASPIRIN 325 MG TAB PO SCH (09:07)
[2017-02-06] MEDS: SODIUM BICARBONATE TAB 650 MG TAB PO SCH ×2 (09:07→20:40)
--- NOTE | 2017-02-06 09:09 | P.PN ---
Subjective Principal diagnosis: shortness of breath Patient is an 81-year-old male with a past medical history of hypertension, chronic kidney disease stage IV, and prostate enlargement who presented with complaints of shortness of breath. He had been traveling [place] and returned home. The ER he underwent an extensive evaluation. His chest x- ray was found to show congestive heart failure, BNP was elevated, and he had clinical signs of CHF. There is also concerns for possible pulmonary embolism but he could not undergo a CT of the chest secondary to his chronic kidney disease. He was subsequently placed on a heparin drip and had a VQ scan and lower extremity venous Dopplers ordered. He was given IV Lasix for fluid retention and Nitropaste secondary to his blood pressure being elevated. He was admitted to the selective care unit for further monitoring and care. He was maintained on Lasix. VQ scan and lower extremity Dopplers were negative and heparin drip was stopped. He was noted to have slightly elevated troponins. He was evaluated by cardiology who felt that his congestive heart failure was secondary to hypertensive heart disease and severe mitral regurgitation. He also felt his elevated troponins secondary to his chronic renal failure. He was seen by nephrology who requested iron studies. He made a slight improvement by the morning after admission. Patient seen and examined at bedside. Still dyspneic with movement, no chest pain, no nausea, no vomiting, no peripheral edema. 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 bag @ 12 UNITS/KG/HR 16. 87 mls/hr IV .Q24H [facility] Rx #:[id number] Levofloxacin 750Mg-D5w 150 Pmx 750 mg In Dextrose/ Water 1 150ml.bag @ 100 mls/hr IVPB ONCE STA Rx#: [id number] Output: Urine 1350 Other: Voiding Method Urinal - Exam General: non toxic, mild distress, appears at stated age Derm: no rashes, no lesions Head: atraumatic, normocephalic, symmetric Eyes: EOMI, no lid lag, anicteric sclera ENT: no post nasal drip, no thrush Mouth: no lip lesion, mucus membranes moist Cardiovascular: S1S2 reg, no murmur, positive posterior tibial pulse bilateral, Lungs: + rhonchi, no rales , + accessory muscle use with movement Abdominal: soft, nontender to palpation, no guarding, no appreciable organomegaly Ext: no gross muscle atrophy, 1+ edema, no contractures Neuro: CN II-XI grossly intact, no focal neuro deficits Psych: Alert, oriented, appropriate affect - Labs CBC & Chem 7: 02/06/17 04:20 02/06/17 04:20 Labs: Abnormal Lab Results - Last 24 Hours (Table) 02/05/17 02/05/17 02/05/17 Range/Units 17:05 17:05 17:05 RBC 2.82 L (4.30-5.90) m/uL Hgb 8.2 L (13.0-17.5) gm/dL Hct 27.1 L (39.0-53.0) % MCHC 30.3 L (31.0-37.0) g/dL RDW 18.0 H (11.5-15.5) % Plt Count 505 H (150-450) k/uL Lymphocytes # 0.6 L (1.0-4.8) k/uL APTT (22.0-30.0) sec D-Dimer (<0.60) mg/L FEU Sodium 148 H (137-145) mmol/L Chloride 117 H (98-107) mmol/L Carbon Dioxide 21 L (22-30) mmol/L BUN 57 H (9-20) mg/dL Creatinine 2.45 H (0.66-1.25) mg/dL Glucose 105 H (74-99) mg/dL Total Creatine Kinase 172 H (55-170) U/L CK-MB (CK-2) 4.2 H* (0.0-2.4) ng/mL Troponin I 0.090 H* (0.000-0.034) ng/mL Total Protein 5.6 L (6.3-8.2) g/dL Albumin 3.1 L (3.5-5.0) g/dL Urine Blood (Negative) Urine RBC (0-5) /[facility] 02/05/17 02/05/17 02/06/17 Range/Units 17:05 21:18 00:24 RBC (4.30-5.90) m/uL Hgb (13.0-17.5) gm/dL Hct (39.0-53.0) % MCHC (31.0-37.0) g/dL RDW (11.5-15.5) % Plt Count (150-450) k/uL Lymphocytes # (1.0-4.8) k/uL APTT (22.0-30.0) sec D-Dimer 1.43 H (<0.60) mg/L FEU Sodium (137-145) mmol/L Chloride (98-107) mmol/L Carbon Dioxide (22-30) mmol/L BUN (9-20) mg/dL Creatinine (0.66-1.25) mg/dL Glucose (74-99) mg/dL Total Creatine Kinase (55-170) U/L CK-MB (CK-2) 3.8 H* (0.0-2.4) ng/mL Troponin I 0.058 H* (0.000-0.034) ng/mL Total Protein (6.3-8.2) g/dL Albumin (3.5-5.0) g/dL Urine Blood Small H (Negative) Urine RBC 6 H (0-5) /[facility] 02/06/17 02/06/17 02/06/17 Range/Units 04:20 04:20 04:20 RBC 2.64 L (4.30-5.90) m/uL Hgb 7.7 L (13.0-17.5) gm/dL Hct 25.6 L (39.0-53.0) % MCHC 30.0 L (31.0-37.0) g/dL RDW 18.3 H (11.5-15.5) % Plt Count 460 H (150-450) k/uL Lymphocytes # 0.6 L (1.0-4.8) k/uL APTT 30.3 H (22.0-30.0) sec D-Dimer (<0.60) mg/L FEU Sodium (137-145) mmol/L Chloride (98-107) mmol/L Carbon Dioxide (22-30) mmol/L BUN (9-20) mg/dL Creatinine (0.66-1.25) mg/dL Glucose (74-99) mg/dL Total Creatine Kinase (55-170) U/L CK-MB (CK-2) 3.3 H* (0.0-2.4) ng/mL Troponin I 0.068 H* (0.000-0.034) ng/mL Total Protein (6.3-8.2) g/dL Albumin (3.5-5.0) g/dL Urine Blood (Negative) Urine RBC (0-5) /hpf 02/06/17 Range/Units 04:20 RBC (4.30-5.90) m/uL Hgb (13.0-17.5) gm/dL Hct (39.0-53.0) % MCHC (31.0-37.0) g/dL RDW (11.5-15.5) % Plt Count (150-450) k/uL Lymphocytes # (1.0-4.8) k/uL APTT (22.0-30.0) sec D-Dimer (<0.60) mg/L FEU Sodium 148 H (137-145) mmol/L Chloride 117 H (98-107) mmol/L Carbon Dioxide 20 L (22-30) mmol/L BUN 57 H (9-20) mg/dL Creatinine 2.54 H (0.66-1.25) mg/dL Glucose 101 H (74-99) mg/dL Total Creatine Kinase (55-170) U/L CK-MB (CK-2) (0.0-2.4) ng/mL Troponin I (0.000-0.034) ng/mL Total Protein (6.3-8.2) g/dL Albumin (3.5-5.0) g/dL Urine Blood (Negative) Urine RBC (0-5) /hpf Assessment and Plan Plan: #New-onset congestive heart failure with ejection fraction 50-55% -Lasix IV twice a day -Cardiology recommendations appreciated: Plan outpatient cardiology follow-up, Lasix therapy at home, and possible LANIE -Strict I's and O's, daily weights, limit salt intake -We will resume his home beta spencer of this propranolol and his home DARRION inhibitor of lisinopril, will not resume home hydrochlorothiazide as currently on Lasix. #Chronic kidney disease stage IV -At baseline per patient -Follow BMP with diuresis -Nephrology recommendations appreciated #Hypertensive urgency and -Improved -Cardizem was increased, resume beta spencer and DARRION inhibitor -Follow blood pressures -When necessary hydralazine #Elevated troponin likely secondary to chronic kidney disease IV -Cardiology recommendations appreciated -Aspirin -Statin therapy as cholesterol profile within normal limits #Hypernatremia -Secondary to free water loss from diuresis -Follow electrolytes -Nephrology recommendations appreciated #Non-anion gap metabolic acidosis -Secondary to chronic kidney disease -Continue with sodium bicarb therapy # Essential thrombocytosis - hold anagrelide with side effect of edema in 21% of patients -Follow platelet count #Normocytic anemia -Follow CBC -Await iron studies -Aranesp started by nephrology DVT prophylaxis: Heparin Discussed with: DILEEP Jones, cardiology Anticipated discharge: 48-[address]: Home A total of 35 minutes was spent on the care of this complex patient more than 50 % of the time was spent in counseling and care coordination.
--- NOTE | 2017-02-06 09:58 | P.NPCON ---
History of Present Illness - Reason for Consult chronic renal failure - History of Present Illness Reason for consultation: Chronic kidney disease History of present illness: Patient is a 81-year-old male seen in renal consultation for chronic kidney disease. Patient has chronic kidney disease stage IV secondary to nephrosclerosis. His public health administrator is Dr. Lubin. His baseline creatinine is near 2.3-2.4. Patient recently returned from [place] after about a week and a half off vacation on Friday. His flight on the way home was about 8 hours. Patient states even during his trip he became dyspneic while touring the [facility]. He was having a dry cough as well. No vomiting or diarrhea. However return on the symptoms got worse and he came to the hospital. He does have history of diastolic CHF with moderate to severe mitral regurgitation. No history of diabetes. There is no evidence of PE on VQ scan. He does admit to eating a higher salt diet as well as drinking more fluids while on the trip. He has also noticed worsening of edema in his lower extremities. His chest x- ray revealed bilateral pleural effusions. He is currently maintained on Lasix 40 mg IV twice daily. He admits to good urine output. No hematuria or dysuria. Urinalysis reveals no evidence of proteinuria. States his dyspnea is a little improved since admission. Blood pressure was also high on admission but is better controlled now. Vital signs are stable. General: The patient appeared well nourished and normally developed. HEENT: Head exam is unremarkable. Neck is without jugular venous distension. LUNGS: Lungs are clear to auscultation and percussion. Breath sounds decreased. HEART: Rate and Rhythm are regular. First and second heart sounds normal. No murmurs, rubs or gallops. ABDOMEN: Abdominal exam reveals normal bowel sounds. Non-tender and non- distended. No evidence of peritonitis. EXTREMITITES: 1+ edema. 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 STOMACH CRAMPS OFF & ON- DIARRHEA LASTED 3-4 WEEKS IN 2013 History of Any Multi-Drug Resistant Organisms: None Reported Past Surgical History: Tonsillectomy Additional Past Surgical History / Comment(s): COLONOSCOPY 2004 Past Anesthesia/Blood Transfusion Reactions: No Reported Reaction Past Psychological History: No Psychological Hx Reported Smoking Status: Never smoker - Past Family History Father Family Medical History: Cancer, Hypertension, Renal Disease Additional Family Medical History / Comment(s): Kidney Cancer Medications and Allergies Home Medications Medication Instructions Recorded Confirmed Type NIFEdipine XL [Procardia XL] 30 mg PO QAM 05/24/14 02/05/17 History Sodium Bicarbonate Tab 1,300 mg PO BID 05/24/14 02/05/17 History Tamsulosin HCl [Flomax] 0.8 mg PO HS 05/24/14 02/05/17 History Allopurinol [Zyloprim] 150 mg PO PC-LUNCH 02/05/17 02/05/17 History Anagrelide HCl [Agrylin] 1 mg PO BID@1200,1500 02/05/17 02/05/17 History Aspirin 81 mg PO HS 02/05/17 02/05/17 History Bisoprolol-Hctz 10-6.25 mg [Ziac 1 tab PO QAM 02/05/17 02/05/17 History 10-6.25] Lisinopril-Hctz 10-12.5 mg 1 tab PO W/LUNCH 02/05/17 02/05/17 History [Zestoretic 10-12.5] Multivitamins, Thera [Multivitamin 1 tab PO AC-BID 02/05/17 02/05/17 History (formulary)] Allergies Allergy/AdvReac Type Severity Reaction Status Date / Time No Known Allergies Allergy Verified 02/05/17 18:02 Physical Exam Vitals: Vital Signs Temp Pulse Pulse Resp BP BP Pulse Ox 02/06/17 07:35 84 02/06/17 07:24 84 02/06/17 04:00 97.6 F 73 20 147/78 90 L 02/06/17 00:55 80 20 141/61 91 L 02/06/17 00:32 74 02/06/17 00:22 77 02/05/17 23:00 97.0 F L 84 20 165/79 94 L 02/05/17 22:00 97.0 F L 96 20 191/77 92 L 02/05/17 21:23 98.2 F 98 22 197/95 95 02/05/17 20:03 75 20 195/93 96 02/05/17 19:57 76 02/05/17 18:05 79 20 191/93 93 L 02/05/17 17:07 98.4 F 82 22 179/84 92 L Intake and Output 02/05/17 02/06/17 02/06/17 22:59 06:59 14:59 Intake Total 300.987 Output Total 400 950 Balance -400 -649.013 Intake: Intake, IV Titration 300.987 Amount Heparin Sodium,Porcine/ 150.987 D5w Pmx 25,000 unit In Dextrose/Water 1 500ml. bag @ 12 UNITS/KG/HR 16. 87 mls/hr IV .Q24H [facility] Rx #:[id number] Levofloxacin 750Mg-D5w 150 Pmx 750 mg In Dextrose/ Water 1 150ml.bag @ 100 mls/hr IVPB ONCE [facility]A Rx#: [id number] Output: Urine 400 950 Other: Voiding Method Urinal Weight 78.3 kg 78.3 kg Results - Lab Results Most recent lab results Calcium 8.6 mg/dL (8.4-10.2) 02/06/17 04:20 Phosphorus 3.8 mg/dL (2.5-4.5) 02/05/17 17:05 Magnesium 2.2 mg/dL (1.6-2.3) 02/05/17 17:05 02/06/17 04:20 02/06/17 04:20 Assessment and Plan Plan: Assessment: #1. Mild nonoliguric acute kidney injury secondary to cardiorenal syndrome. Creatinine up to 2.54 today. No evidence of proteinuria on urinalysis. #2. Chronic kidney disease stage IV secondary to nephrosclerosis with baseline creatinine in the range of 2.3-2.4. #3. Hypernatremia from water losses from diuresis. #4. Diastolic CHF with moderate to severe mitral regurgitation. #5. Volume overload with bilateral pleural effusions noted on chest x-ray. #6. Anemia of chronic kidney disease. Rule out iron deficiency. #7. Hypertension with chronic kidney disease. Better controlled now. Partially volume sensitive. 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 Plan: Continue Lasix 40 mg IV twice daily. Low-salt diet. Expect improvement in sodium as his oral intake improves. He has been drinking water. Check iron studies. Start Aranesp. Check renal uls. Continue oral sodium bicarbonate supplementation. Repeat electrolytes in the morning. Thank you for the consultation. I will continue to follow the patient with you during his hospital stay.
[2017-02-06] MEDS ORDERED: DARBEPOETIN ALFA 40 MCG/0.4 ML SYRINGE SQ SCH (11:00)
[2017-02-06] MEDS: ANAGRELIDE 0.5 MG CAP PO SCH ×2 (12:15→17:10)
[2017-02-06] MEDS: DILTIAZEM CD 180 MG CAP.ER.24H PO SCH (12:15)
[2017-02-06] MEDS ORDERED: BISOPROLOL 5 MG TAB PO SCH (13:45)
--- NOTE | 2017-02-06 15:33 | US ---
EXAMINATION TYPE: US kidneys/renal and bladder DATE OF EXAM: 02/06/2017 COMPARISON: NONE CLINICAL HISTORY: 81-year-old male acute kidney injury; Stage 4 renal failure per patient. TECHNIQUE: Multiple sonographic images of the kidneys and bladder were obtained. FINDINGS: Right Kidney: 8.7 x 3.5 x 3.9 cm without hydronephrosis. There is a 4.2 cm exophytic cyst from the m id pole. Left Kidney: 8.6 x 4.1 x 5.5 cm without hydronephrosis. Bladder: There is a lobulated mass measuring at least 5.9 cm wide extending into the posterior bladde r base. Bilateral Jets seen: Yes IMPRESSION: 1. No hydronephrosis. 4.2 cm exophytic cyst on the right. 2. A 5.9 cm wide lobulated mass extending into the posterior bladder base suspected to represent hype rtrophied median lobe of the prostate gland. Correlate with PSA, patient's symptoms, and physical exa m for possible BPH.
[2017-02-06 16:41] LABS: Iron Saturation 13.16 (15.00-50.00)
[2017-02-06] MEDS: LISINOPRIL 10 MG TAB PO SCH (17:10)
[2017-02-06] MEDS: HEPARIN SODIUM,PORCINE 5,000 UNIT/ML 1 ML VIAL SQ SCH ×2 (17:11→23:23)
[2017-02-06] MEDS ORDERED: LEVOFLOXACIN 750MG-D5W PMX 750 MG in DEXTROSE/WATER 1 150ML.BAG IVPB SCH ×2 (18:00→21:00)
[2017-02-06] MEDS: TAMSULOSIN 0.4 MG CAP.ER.24H PO SCH (20:40)
[2017-02-07] MEDS: IPRATROPIUM-ALBUTEROL 3 ML NEB INHALATION SCH ×7 (00:23→23:34)
[2017-02-07] MEDS: FUROSEMIDE 10 MG/ML 4 ML VIAL IV SCH ×2 (06:40→16:10)
[2017-02-07] MEDS: MULTIVITAMINS, THERA 1 EACH TAB PO SCH ×2 (06:40→09:27)
[2017-02-07 06:57] LABS: Calcium 8.8 mg/dL (8.4-10.2)
[2017-02-07 07:23] LABS: Anisocytosis Slight; Basophils # (A) 0.1 k/uL (0-0.2); Basophils % (A) 1 %; CH 28.8; CHCM 29.7; Eosinophils # (A) 0.4 k/uL (0-0.7); Eosinophils % (A) 6 %; HCT 28.6 % (39.0-53.0); HDW 3.04; HGB 8.4 gm/dL (13.0-17.5); Hypochromasia Marked; Luc # (Auto) 0.25; Luc % (Auto) 4; Lymphocytes # (A) 0.7 k/uL (1.0-4.8); Lymphocytes % (A) 9 %; MCH 28.8 pg (25.0-35.0); MCHC 29.5 g/dL (31.0-37.0); MCV 97.8 fL (80.0-100.0); Macrocytosis Slight; Mean Platelet Volume 8.8; Monocytes # (A) 0.4 k/uL (0-1.0); Monocytes % (A) 6 %; Neutrophils # (A) 5.3 k/uL (1.3-7.7); Neutrophils % (A) 75 %; RBC 2.93 m/uL (4.30-5.90); RDW 18.1 % (11.5-15.5); WBC 7.1 k/uL (3.8-10.6)
[2017-02-07 07:38] LABS: Large Platelets Present; Manual Review Performed
--- NOTE | 2017-02-07 09:06 | P.PN ---
Subjective Principal diagnosis: shortness of breath Patient is an 81-year-old male with a past medical history of hypertension, chronic kidney disease stage IV, and prostate enlargement who presented with complaints of shortness of breath. He had been traveling [place] and returned home. The ER he underwent an extensive evaluation. His chest x- ray was found to show congestive heart failure, BNP was elevated, and he had clinical signs of CHF. There is also concerns for possible pulmonary embolism but he could not undergo a CT of the chest secondary to his chronic kidney disease. He was subsequently placed on a heparin drip and had a VQ scan and lower extremity venous Dopplers ordered. He was given IV Lasix for fluid retention and Nitropaste secondary to his blood pressure being elevated. He was admitted to the selective care unit for further monitoring and care. He was maintained on Lasix. VQ scan and lower extremity Dopplers were negative and heparin drip was stopped. He was noted to have slightly elevated troponins. He was evaluated by cardiology who felt that his congestive heart failure was secondary to hypertensive heart disease and severe mitral regurgitation. He also felt his elevated troponins secondary to his chronic renal failure. He was seen by nephrology who requested iron studies. He made a slight improvement by the morning after admission. He has a known history of prostate enlargement and this was seen on renal and bladder ultrasound. Patient seen and examined at bedside. Improving dyspnea. Still feeling dyspneic with movement. Denies any chest pain or palpitations. Has a known history of BPH. Objective - Vital Signs Vital signs: Vital Signs Temp 97.0 F L 02/07/17 03:00 Pulse 88 02/07/17 08:21 Resp 20 02/07/17 03:00 BP 184/81 02/07/17 06:45 Pulse Ox 94 L 02/07/17 08:10 Intake & Output 02/06/17 02/07/17 02/07/17 18:59 06:59 18:59 Intake Total 436 240 Output Total 1825 1700 Balance -1389 -1700 240 Weight 78.3 kg 79.1 kg Intake: IV 80 Sodium Chloride 0.9% 1, 80 000 ml @ 100 mls/hr IV . Q10H [facility] Rx#:[id number] Oral 356 240 Output: Urine 1825 1700 Other: Voiding Method Urinal - Exam General: non toxic, mild distress, appears at stated age Derm: no rashes, no lesions Head: atraumatic, normocephalic, symmetric Eyes: EOMI, no lid lag, anicteric sclera ENT: no post nasal drip, no thrush Mouth: no lip lesion, mucus membranes moist Cardiovascular: S1S2 reg, no murmur, positive posterior tibial pulse bilateral, Lungs: + rhonchi, no rales , + accessory muscle use with movement Abdominal: soft, nontender to palpation, no guarding, no appreciable organomegaly Ext: no gross muscle atrophy, Trace edema, no contractures Neuro: CN II-XI grossly intact, no focal neuro deficits Psych: Alert, oriented, appropriate affect - Labs CBC & Chem 7: 02/07/17 06:26 02/07/17 06:26 Labs: Abnormal Lab Results - Last 24 Hours (Table) 02/06/17 02/07/17 02/07/17 Range/Units 04:20 06:26 06:26 RBC 2.93 L (4.30-5.90) m/uL Hgb 8.4 L (13.0-17.5) gm/dL Hct 28.6 L (39.0-53.0) % MCHC 29.5 L (31.0-37.0) g/dL RDW 18.1 H (11.5-15.5) % Plt Count 504 H (150-450) k/uL Lymphocytes # 0.7 L (1.0-4.8) k/uL Sodium 146 H (137-145) mmol/L Chloride 114 H (98-107) mmol/L BUN 56 H (9-20) mg/dL Creatinine 2.70 H (0.66-1.25) mg/dL Iron 25 L (65-175) ug/dL TIBC 190 L (228-460) ug/dL Iron Saturation 13.16 L (15.00-50.00) Assessment and Plan Plan: #New-onset congestive heart failure with ejection fraction 50-55% -Lasix IV twice a day -Cardiology recommendations appreciated: Plan outpatient cardiology follow-up, Lasix therapy at home, and possible LANIE -Strict I's and O's, daily weights, limit salt intake - propranolol, lisinopril - will not resume home hydrochlorothiazide as currently on Lasix. #Chronic kidney disease stage IV -At baseline per patient -Follow BMP with diuresis -Nephrology recommendations appreciated #Hypertensive urgency -Improved -Cardizem, beta spencer, and DARRION inhibitor -Follow blood pressures -When necessary hydralazine #Elevated troponin likely secondary to chronic kidney disease IV -Cardiology recommendations appreciated -Aspirin -Statin therapy as cholesterol profile within normal limits #Hypernatremia, improving -Secondary to free water loss from diuresis -Follow electrolytes -Nephrology recommendations appreciated #Non-anion gap metabolic acidosis -Secondary to chronic kidney disease -Continue with sodium bicarb therapy # Essential thrombocytosis - anagrelide -Follow platelet count #Normocytic anemia -Follow CBC -Await iron studies -Aranesp started by nephrology DVT prophylaxis: Heparin Discussed with: Patient, RN, cardiology Anticipated discharge: 24-[address]: Home A total of 35 minutes was spent on the care of this complex patient more than 50 % of the time was spent in counseling and care coordination.
[2017-02-07] MEDS: SODIUM BICARBONATE TAB 650 MG TAB PO SCH ×2 (09:26→20:19)
[2017-02-07] MEDS: ASPIRIN 325 MG TAB PO SCH (09:26)
[2017-02-07] MEDS: LISINOPRIL 10 MG TAB PO SCH (09:27)
[2017-02-07] MEDS: HEPARIN SODIUM,PORCINE 5,000 UNIT/ML 1 ML VIAL SQ SCH ×3 (09:27→23:26)
[2017-02-07] MEDS: DILTIAZEM CD 180 MG CAP.ER.24H PO SCH (09:27)
[2017-02-07] MEDS: BISOPROLOL 5 MG TAB PO SCH (09:29)
--- NOTE | 2017-02-07 09:56 | P.PN ---
Subjective Patient is seen in follow-up for acute kidney injury on chronic kidney disease. Patient has chronic kidney disease stage IV with baseline creatinine in the range of 2.3-2.4. Patient follows with Dr. Lubin. He has history of diastolic CHF with moderate to severe mitral regurgitation. Patient presented with dyspnea and was noted to have bilateral pleural effusions. He is currently maintained on Lasix 40 mg IV twice daily. He is nonoliguric. Dyspnea is improving. He states he was able to ambulate today but did get short of breath towards the end. No vomiting or diarrhea. Oral intake is good. Vital signs are stable. General: The patient appeared well nourished and normally developed. HEENT: Head exam is unremarkable. Neck is without jugular venous distension. LUNGS: Lungs are clear to auscultation and percussion. Breath sounds decreased. HEART: Rate and Rhythm are regular. First and second heart sounds normal. No murmurs, rubs or gallops. ABDOMEN: Abdominal exam reveals normal bowel sounds. Non-tender and non- distended. No evidence of peritonitis. EXTREMITITES: No clubbing, cyanosis, or edema. Objective - Vital Signs Vital signs: Vital Signs Temp 97.0 F L 02/07/17 03:00 Pulse 88 02/07/17 08:21 Resp 19 02/07/17 08:00 BP 160/77 02/07/17 08:00 Pulse Ox 94 L 02/07/17 08:10 Intake & Output 02/06/17 02/07/17 02/07/17 18:59 06:59 18:59 Intake Total 436 240 Output Total 1825 1700 Balance -1389 -1700 240 Weight 78.3 kg 79.1 kg Intake: IV 80 Sodium Chloride 0.9% 1, 80 000 ml @ 100 mls/hr IV . Q10H [facility] Rx#:[id number] Oral 356 240 Output: Urine 1825 1700 Other: Voiding Method Urinal - Labs CBC & Chem 7: 02/07/17 06:26 02/07/17 06:26 Labs: Abnormal Lab Results - Last 24 Hours (Table) 02/06/17 02/07/17 02/07/17 Range/Units 04:20 06:26 06:26 RBC 2.93 L (4.30-5.90) m/uL Hgb 8.4 L (13.0-17.5) gm/dL Hct 28.6 L (39.0-53.0) % MCHC 29.5 L (31.0-37.0) g/dL RDW 18.1 H (11.5-15.5) % Plt Count 504 H (150-450) k/uL Lymphocytes # 0.7 L (1.0-4.8) k/uL Sodium 146 H (137-145) mmol/L Chloride 114 H (98-107) mmol/L BUN 56 H (9-20) mg/dL Creatinine 2.70 H (0.66-1.25) mg/dL Iron 25 L (65-175) ug/dL TIBC 190 L (228-460) ug/dL Iron Saturation 13.16 L (15.00-50.00) Assessment and Plan Plan: Assessment: #1. Nonoliguric acute kidney injury secondary to cardiorenal syndrome. Creatinine up to 2.7 today. No evidence of proteinuria on urinalysis. Ultrasound revealed no evidence of hydronephrosis. Kidney size is small suggestive of chronic kidney disease. #2. Chronic kidney disease stage IV secondary to nephrosclerosis with baseline creatinine in the range of 2.3-2.4. #3. Hypernatremia from water losses from diuresis. Improved. #4. Diastolic CHF with moderate to severe mitral regurgitation. #5. Volume overload with bilateral pleural effusions noted on chest x-ray. #6. Anemia of chronic kidney disease. Iron deficiency noted. #7. Hypertension with chronic kidney disease. Blood pressures on the higher side. Partially volume sensitive. 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 Plan: Continue Lasix 40 mg IV twice daily - can likely transition to oral tomorrow. Repeat CXR tomorrow. Low-salt diet. Ferrlicit 125 mg iv daily for 3 days. First dose today. Continue Aranesp. Continue oral sodium bicarbonate supplementation. Repeat electrolytes in the morning.
[2017-02-07] MEDS ORDERED: SODIUM FERRIC GLUCONAT-SUCROSE 125 MG in SODIUM CHLORIDE 0.9% 100 ML IVPB SCH (12:00)
[2017-02-07] MEDS: ANAGRELIDE 0.5 MG CAP PO SCH ×2 (12:01→16:10)
--- NOTE | 2017-02-07 14:30 | P.PN ---
Subjective Principal diagnosis: Congestive heart failure exacerbation This is a pleasant 81-year-old gentleman who does not follow with any performance improvement coordinator currently and he sees a primary care physician at [facility] presented to the hospital complaining of progressive dyspnea of a few weeks duration. The patient has a past medical history consistent of hypertension and stage IV chronic kidney disease. The patient just came from a trip from [place]. Since then he has been experiencing progressive exertional dyspnea without orthopnea and without any PND. Also he developed bilateral lower extremities edema and weakness in the legs. No chest pain or chest discomfort. Denies having any fever or chills but he stated that he had some dry cough. The chest x-ray showed bilateral pleural effusion. The BNP came in to be around 16,000. The troponin is slightly elevated but is flattened and does not reflect an acute myocardial infarction. Beside that the EKG showed sinus rhythm without any significant ST or T-wave abnormalities. As I mentioned earlier the patient did not have any symptoms of chest pain or chest discomfort. The hemoglobin was low. The creatinine was elevated and he is known to have stage IV chronic kidney disease. Recently he underwent an echocardiogram by his primary care physician which I reviewed and it showed normal LV function with mild LVH and valvular heart disease consistent of aortic sclerosis with [id number] aortic insufficiency and moderate to severe mitral regurgitation. Objective - Vital Signs Vital signs: Vital Signs Temp 97.0 F L 02/07/17 03:00 Pulse 84 02/07/17 12:04 Resp 18 02/07/17 11:48 BP 170/76 02/07/17 11:48 Pulse Ox 74 L 02/07/17 11:48 Intake & Output 02/06/17 02/07/17 02/07/17 18:59 06:59 18:59 Intake Total 436 480 Output Total 1825 1700 1150 Balance -1389 1700 -670 Weight 78.3 kg 79.1 kg Intake: IV 80 Sodium Chloride 0.9% 1, 80 000 ml @ 100 mls/hr IV . Q10H [facility] Rx#:[id number] Oral 356 480 Output: Urine 1825 1700 1150 Other: Voiding Method Urinal - Constitutional General appearance: Present: no acute distress - Respiratory Respiratory: bilateral: diminished - Cardiovascular Rhythm: regular Heart sounds: normal: S1, S2 Abnormal Heart Sounds: Present: systolic murmur - Labs CBC & Chem 7: 02/07/17 06:26 02/07/17 06:26 Labs: Abnormal Lab Results - Last 24 Hours (Table) 02/06/17 02/07/17 02/07/17 Range/Units 04:20 06:26 06:26 RBC 2.93 L (4.30-5.90) m/uL Hgb 8.4 L (13.0-17.5) gm/dL Hct 28.6 L (39.0-53.0) % MCHC 29.5 L (31.0-37.0) g/dL RDW 18.1 H (11.5-15.5) % Plt Count 504 H (150-450) k/uL Lymphocytes # 0.7 L (1.0-4.8) k/uL Sodium 146 H (137-145) mmol/L Chloride 114 H (98-107) mmol/L BUN 56 H (9-20) mg/dL Creatinine 2.70 H (0.66-1.25) mg/dL Iron 25 L (65-175) ug/dL TIBC 190 L (228-460) ug/dL Iron Saturation 13.16 L (15.00-50.00) Assessment and Plan Plan: This is a pleasant 81-year-old gentleman with hypertension and advanced chronic kidney disease presented to the hospital with progressive dyspnea and bilateral lower extremities edema. The patient was diagnosed with congestive heart failure exacerbation secondary to diastolic dysfunction and valvular heart disease. Agree to keep the patient on the current above dose of Lasix IV for additional 24 hour and continue monitor the kidney function and electrolytes. The troponin does not reflect acute myocardial infarction and is likely secondary to chronic kidney disease. Continue the aspirin, and calcium channel spencer. No need for echocardiogram in review of recent echocardiogram which described above.
[2017-02-07] MEDS: TAMSULOSIN 0.4 MG CAP.ER.24H PO SCH (20:19)
[2017-02-08 00:25] VITALS: RESP 16
[2017-02-08] MEDS: IPRATROPIUM-ALBUTEROL 3 ML NEB INHALATION SCH ×2 (03:38→08:09)
[2017-02-08 04:52] VITALS: TEMP 97.5
[2017-02-08 06:29] LABS: Calcium 8.9 mg/dL (8.4-10.2); Magnesium 1.7 mg/dL (1.6-2.3); Potassium 4.9 mmol/L (3.5-5.1)
[2017-02-08] MEDS: MULTIVITAMINS, THERA 1 EACH TAB PO SCH (06:34)
[2017-02-08] MEDS: FUROSEMIDE 10 MG/ML 4 ML VIAL IV SCH (06:34)
[2017-02-08 06:53] LABS: Anisocytosis Slight; Basophils # (A) 0.1 k/uL (0-0.2); Basophils % (A) 1 %; CH 28.7; CHCM 29.6; Eosinophils # (A) 0.4 k/uL (0-0.7); Eosinophils % (A) 6 %; HCT 28.4 % (39.0-53.0); HDW 2.92; HGB 8.5 gm/dL (13.0-17.5); Hypochromasia Marked; Luc # (Auto) 0.25; Luc % (Auto) 4; Lymphocytes # (A) 0.8 k/uL (1.0-4.8); Lymphocytes % (A) 12 %; MCH 29.3 pg (25.0-35.0); MCV 97.6 fL (80.0-100.0); Macrocytosis Slight; Monocytes # (A) 0.4 k/uL (0-1.0); Monocytes % (A) 7 %; Neutrophils # (A) 4.5 k/uL (1.3-7.7); Neutrophils % (A) 70 %; RBC 2.91 m/uL (4.30-5.90); WBC 6.4 k/uL (3.8-10.6); WBC (Perox) 6.59
[2017-02-08] MEDS: HEPARIN SODIUM,PORCINE 5,000 UNIT/ML 1 ML VIAL SQ SCH (08:10)
[2017-02-08] MEDS: BISOPROLOL 5 MG TAB PO SCH (08:10)
[2017-02-08] MEDS: DILTIAZEM CD 180 MG CAP.ER.24H PO SCH (08:10)
[2017-02-08] MEDS: LISINOPRIL 10 MG TAB PO SCH (08:10)
[2017-02-08] MEDS: SODIUM BICARBONATE TAB 650 MG TAB PO SCH (08:10)
[2017-02-08] MEDS: ASPIRIN 325 MG TAB PO SCH (08:10)
[2017-02-08 08:14] VITALS: BP 160/54
[2017-02-08 08:25] VITALS: PULSE 74
--- NOTE | 2017-02-08 09:10 | XR ---
EXAMINATION TYPE: XR chest 1V portable DATE OF EXAM: 02/08/2017 HISTORY: sob. REFERENCE: Previous study dated 02/06/2017. FINDINGS: The heart is enlarged. There is bibasilar airspace disease. I suspect a small left effusion . There are improving changes of pulmonary edema. IMPRESSION: 1. IMPROVING CHANGES OF PULMONARY EDEMA. 2. BIBASILAR AIRSPACE DISEASE MAY REPRESENT CONFLUENT EDEMA OR PNEUMONIA.
--- NOTE | 2017-02-08 09:52 | P.DS ---
Providers Date of admission: 02/05/17 18:35 Expected date of discharge: 02/08/17 Attending physician: Roselyn Wright DO Consults: 02/05/17 21:57 Consult Physician Routine Consulting Provider: Hussain Carmichael Consult Reason/Comments: elevated troponin Do you want consulting provider notified?: Yes, Notify in am 02/05/17 22:03 Consult Physician Routine Consulting Provider: Justin Dunn Consult Reason/Comments: elevated BUN and Cr Do you want consulting provider notified?: Yes, Notify in am Primary care physician: Physician Nonstaff - Discharge Diagnosis(es) (1) Acute congestive heart failure Status: Resolved (2) Hypertensive urgency Status: Resolved (3) Hypernatremia Status: Resolved (4) Essential thrombocytosis Status: Chronic (5) Fe deficiency anemia Status: Chronic (6) Elevated troponin Status: Chronic (7) Hypoxia Status: Resolved (8) Mitral regurgitation Status: Chronic Hospital Course: Patient is an 81-year-old male with a past medical history of hypertension, chronic kidney disease stage IV, and prostate enlargement who presented with complaints of shortness of breath. He had been traveling [place] and returned home. The ER he underwent an extensive evaluation. His chest x- ray was found to show congestive heart failure, BNP was elevated, and he had clinical signs of CHF. There is also concerns for possible pulmonary embolism but he could not undergo a CT of the chest secondary to his chronic kidney disease. He was subsequently placed on a heparin drip and had a VQ scan and lower extremity venous Dopplers ordered. He was given IV Lasix for fluid retention and Nitropaste secondary to his blood pressure being elevated. He was admitted to the selective care unit for further monitoring and care. He was maintained on Lasix. VQ scan and lower extremity Dopplers were negative and heparin drip was stopped. He was noted to have slightly elevated troponins. He was evaluated by cardiology who felt that his congestive heart failure was secondary to hypertensive heart disease and severe mitral regurgitation. He had an echocardiogram within the last month and therefore this was not repeated. He also felt his elevated troponins secondary to his chronic renal failure. He was seen by nephrology who requested iron studies which were consistent with iron deficiency and he was started on IV iron therapy. He made a slight improvement by the morning after admission. He has a known history of prostate enlargement and this was seen on renal and bladder ultrasound. He continue to improve with diuresis. On the morning of 02/08 he was able to ambulate without shortness of breath. He was determined stable for discharge home. He will need to be seen by his primary care physician, follow up with Dr. 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 We discussed his medication changes in detail. I transitioned him from 40 of Lasix IV to 80 by mouth which is equivalent. He was determined stable for discharge home. Patient seen and examined at bedside. Breathing is much improved, no significant edema, no chest pain, no shortness of breath. Discussed home medication the family. Vital signs reviewed and stable. General: non toxic, no distress, appears at stated age Derm: no rashes, no lesions Head: atraumatic, normocephalic, symmetric Eyes: EOMI, no lid lag, anicteric sclera ENT: no post nasal drip, no thrush Mouth: no lip lesion, mucus membranes moist Cardiovascular: S1S2 reg, no murmur, positive posterior tibial pulse bilateral, Lungs: CTA bilateral, no rhonchi, no rales , no accessory muscle use Abdominal: soft, nontender to palpation, no guarding, no appreciable organomegaly Ext: no gross muscle atrophy, trace edema, no contractures Neuro: CN II-XI grossly intact, no focal neuro deficits Psych: Alert, oriented, appropriate affect A total of 35 minutes of time were spent preparing this complex discharge summary . Pertinent Studies: CT chest congestive heart failure with pleural effusions VQ scan-negative for PE Lower Extremity venous Dopplers-negative Patient Condition at Discharge: Fair Plan - Discharge Summary New Discharge Prescriptions: New Bisoprolol Fumarate [Zebeta] 20 mg PO DAILY #60 tablet Furosemide [Lasix] 80 mg PO DAILY #30 tablet Lisinopril [Zestril] 10 mg PO DAILY #30 tab Continue Tamsulosin HCl [Flomax] 0.8 mg PO HS Sodium Bicarbonate Tab 1,300 mg PO BID NIFEdipine XL [Procardia XL] 30 mg PO QAM Multivitamins, Thera [Multivitamin (formulary)] 1 tab PO AC-BID Aspirin 81 mg PO HS Allopurinol [Zyloprim] 150 mg PO PC-LUNCH Anagrelide HCl [Agrylin] 1 mg PO BID@1200,1500 Discontinued Bisoprolol-Hctz 10-6.25 mg [Ziac 10-6.25] 1 tab PO QAM Lisinopril-Hctz 10-12.5 mg [Zestoretic 10-12.5] 1 tab PO W/LUNCH Discharge Medication List NIFEdipine XL [Procardia XL] 30 mg PO QAM 05/24/14 [History] Sodium Bicarbonate Tab 1,300 mg PO BID 05/24/14 [History] Tamsulosin HCl [Flomax] 0.8 mg PO HS 05/24/14 [History] Allopurinol [Zyloprim] 150 mg PO PC-LUNCH 02/05/17 [History] Anagrelide HCl [Agrylin] 1 mg PO BID@1200,1500 02/05/17 [History] Aspirin 81 mg PO HS 02/05/17 [History] Multivitamins, Thera [Multivitamin (formulary)] 1 tab PO AC-BID 02/05/17 [ History] Bisoprolol Fumarate [Zebeta] 20 mg PO DAILY #60 tablet 02/08/17 [Rx] Furosemide [Lasix] 80 mg PO DAILY #30 tablet 02/08/17 [Rx] Lisinopril [Zestril] 10 mg PO DAILY #30 tab 02/08/17 [Rx] Follow up Appointment(s)/Referral(s): Hussain Carmichael MD [STAFF PHYSICIAN] - 2 Weeks (Please call to make appointment) Ketan,Physician [Primary Care Provider] - 1-2 days Patient Instructions/Handouts: Heart Failure (DC), Chronic Kidney Disease (DC) Activity/Diet/Wound Care/Special Instructions: Low potassium, 2 gram sodium, 2L fluid restriction Activity as tolerated. Discharge Disposition: HOME SELF-CARE
--- NOTE | 2017-02-08 10:36 | P.PN ---
Subjective This is a 81-year-old seen in consultation because of chronic kidney disease who came in with acute kidney injury secondary to CHF and moderate mitral regurgitation. He has been diuresed and is doing better. He has a chest x-ray this morning which shows significant improvement, no evidence of congestive heart failure is noted. Subjectively feeling much better denies any shortness of breath is on room air. Appetite is fair is able to walk. Supposedly prior to hospitalization he was on combination of lisinopril hydrochlorothiazide but only 10/12.5 mg. He is known with congestive heart failure. Objective - Vital Signs Vital signs: Vital Signs Temp 97.5 F L 02/08/17 08:00 Pulse 74 02/08/17 08:19 Resp 16 02/08/17 08:00 BP 160/54 02/08/17 08:00 Pulse Ox 97 02/08/17 08:00 Intake & Output 02/07/17 02/08/17 02/08/17 18:59 06:59 18:59 Intake Total 720 600 180 Output Total 1150 1225 Balance -430 -625 180 Weight 79.4 kg Intake: Oral 720 600 180 Output: Urine 1150 1225 Other: Voiding Method Toilet Urinal # Voids 1 On examination is awake alert oriented comfortable HEENT exam no JVP neck is supple no facial asymmetry and subcu to auscultation percussion good air entry bilaterally. Heart sounds are unremarkable for any murmur rub gallop Abdomen soft nontender no organomegaly status masses Extremity exam was no edema Neurologically awake alert oriented no focal motor deficit - Labs CBC & Chem 7: 02/08/17 05:36 02/08/17 05:33 Labs: Abnormal Lab Results - Last 24 Hours (Table) 02/08/17 02/08/17 Range/Units 05:33 05:36 RBC 2.91 L (4.30-5.90) m/uL Hgb 8.5 L (13.0-17.5) gm/dL Hct 28.4 L (39.0-53.0) % MCHC 30.0 L (31.0-37.0) g/dL RDW 18.0 H (11.5-15.5) % Plt Count 486 H (150-450) k/uL Lymphocytes # 0.8 L (1.0-4.8) k/uL Chloride 109 H (98-107) mmol/L BUN 58 H (9-20) mg/dL Creatinine 2.70 H (0.66-1.25) mg/dL Assessment and Plan Plan: Impression 1. Acute kidney injury secondary to congestive heart failure resolved 2. Chronic kidney disease stage IV with a baseline creatinine of 2.4 under the care of Dr. Lubin 3. Congestive heart failure with mitral regurgitation 4. Anemia of chronic kidney disease. 5. Iron deficiency status post IV iron 6. Hypertension, currently blood pressure slightly high 160/54 Recommendation. 1. Maintain sodium bicarb 1300 mg twice a day dose. 2. patient she did be discharged on Lasix 40 milligrams daily. 3. He should maintain strict blood pressure logs and call his foreign policy officer or primary physician is less than 110 of greater than 140. 4. Patient also maintain the weight record. 5. He needs to be followed up in one of his physicians office in the next 48 hours so that we can reduce his readmission chances given his diuretics have been changed
== END 2017-02-08 11:28 | disposition home or self-care (01) | DRG 291 ==
LOC: EC 16:33 → 6SEL 18:35
PROVIDERS: ADMIT Internal Medicine; ATTEND Internal Medicine
DX: I13.0 Hypertensive heart and chronic kidney disease with heart failure and stage 1 through stage 4 chronic kidney disease, or unspecified chronic kidney disease (principal); I50.33 Acute on chronic diastolic (congestive) heart failure; J18.9 Pneumonia, unspecified organism; E87.0 Hyperosmolality and hypernatremia; E87.2 Acidosis; N18.4 Chronic kidney disease, stage 4 (severe); N17.9 Acute kidney failure, unspecified; D63.1 Anemia in chronic kidney disease; D50.9 Iron deficiency anemia, unspecified; D47.3 Essential (hemorrhagic) thrombocythemia; I08.0 Rheumatic disorders of both mitral and aortic valves; I16.0 Hypertensive urgency; R09.02 Hypoxemia; N40.0 Benign prostatic hyperplasia without lower urinary tract symptoms; Z79.02 Long term (current) use of antithrombotics/antiplatelets; Z79.82 Long term (current) use of aspirin; Z79.899 Other long term (current) drug therapy; Z82.49 Family history of ischemic heart disease and other diseases of the circulatory system
CPT/HCPCS: 36415; 71010; 71020; 76770; 78582; 80048; 80053; 80061; 81001; 82550; 82553; 82728; 83540; 83550; 83735; 83880; 84100; 84153; 84154; 84484; 85025; 85379; 85610; 85730; 93005; 93970; 94640; 94760; 96361; 96365; 96366; 96375; 99291

== ENCOUNTER → 2017-02-05 | Outpatient (CLI) | payer MEDICARE ==
[2017-02-05 15:08] LABS: Anisocytosis Slight; Basophils # (A) 0.1 k/uL (0-0.2); Basophils % (A) 2 %; CH 28.7; CHCM 29.1; Eosinophils # (A) 0.4 k/uL (0-0.7); Eosinophils % (A) 5 %; HCT 28.1 % (39.0-53.0); HDW 3.03; HGB 8.4 gm/dL (13.0-17.5); Hypochromasia Marked; Luc # (Auto) 0.35; Luc % (Auto) 4; Lymphocytes # (A) 0.9 k/uL (1.0-4.8); Lymphocytes % (A) 11 %; MCH 29.8 pg (25.0-35.0); MCHC 30.1 g/dL (31.0-37.0); MCV 99.2 fL (80.0-100.0); Macrocytosis Slight; Mean Platelet Volume 8.9; Monocytes # (A) 0.5 k/uL (0-1.0); Monocytes % (A) 6 %; Neutrophils # (A) 6.2 k/uL (1.3-7.7); Neutrophils % (A) 73 %; RBC 2.83 m/uL (4.30-5.90); RDW 18.1 % (11.5-15.5); WBC 8.5 k/uL (3.8-10.6); WBC (Perox) 8.92
[2017-02-05 15:25] LABS: Calcium 8.9 mg/dL (8.4-10.2)
== END | disposition home or self-care (01) ==
LOC: LABWHC1 14:32
PROVIDERS: ATTEND Internal Medicine Nephrology
DX: N18.3 Chronic kidney disease, stage 3 (moderate) (principal)
CPT/HCPCS: 36415; 80048; 85025

== ENCOUNTER 2017-12-02 10:24 | Emergency (ER) | payer MEDICARE ==
[2017-12-02 10:38] VITALS: TEMP 96.9
[2017-12-02] MEDS ORDERED: METOPROLOL TARTRATE 5 MG/5 ML VIAL IVP STA (11:00)
--- NOTE | 2017-12-02 11:07 | ED ---
General Adult HPI - General Chief complaint: Arrhythmia/Palpitations Stated complaint: Irreg heart beat Time Seen by Provider: 12/02/17 10:35 Source: patient, RN notes reviewed Mode of arrival: ambulatory Limitations: no limitations - History of Present Illness Initial comments: This is an 82-year-old male who presents emergency Department complaining that he is having couple extra heartbeats. Patient states he puts his hands carotid he can occasionally feel an extra beat. Patient states otherwise he is asymptomatic. Patient denies any chest pain or palpitation feeling in his chest. Patient denies any shortness of breath or difficulty breathing. Patient denies any diaphoresis. Patient states he has a history of PVCs but these symptoms be a little more frequent when he is feeling as carotid pulses. Patient states every once a while he is lying still in bed he can feel a repeat and his years but other than that he has no sensation of palpitations. Patient denies any headache patient denies numbness weakness. Patient denies lightheadedness dizziness or near syncopal episode. Patient denies abdominal pain patient denies nausea vomiting diarrhea. Patient denies any recent illness or sickness or fever or chills. - Related Data Home Medications Medication Instructions Recorded Confirmed NIFEdipine XL [Procardia XL] 30 mg PO QAM 05/24/14 12/02/17 Sodium Bicarbonate Tab 1,300 mg PO BID 05/24/14 12/02/17 Tamsulosin HCl [Flomax] 0.4 mg PO HS 05/24/14 12/02/17 Allopurinol [Zyloprim] 150 mg PO PC-LUNCH 02/05/17 12/02/17 Anagrelide HCl [Agrylin] 1 mg PO BID@1200,1500 02/05/17 12/02/17 Aspirin 81 mg PO HS 02/05/17 12/02/17 Multivitamins, Thera [Multivitamin 1 tab PO AC-BID 02/05/17 12/02/17 (formulary)] Bisoprolol Fumarate [Zebeta] 10 mg PO DAILY 12/02/17 12/02/17 Furosemide [Lasix] 40 mg PO DAILY 12/02/17 12/02/17 Previous Rx's Medication Instructions Recorded Lisinopril [Zestril] 10 mg PO DAILY #30 tab 02/08/17 Allergies Allergy/AdvReac Type Severity Reaction Status Date / Time Iodinated Contrast- Oral and AdvReac KIDNEY Verified 12/02/17 11:26 IV Dye FAILURE Review of Systems ROS Statement: Those systems with pertinent positive or pertinent negative responses have been documented in the HPI. ROS Other: All systems not noted in ROS Statement are negative. 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 STOMACH CRAMPS OFF & ON- DIARRHEA LASTED 3-4 WEEKS IN 2013 History of Any Multi-Drug Resistant Organisms: None Reported Past Surgical History: Tonsillectomy Additional Past Surgical History / Comment(s): COLONOSCOPY 2004 Past Anesthesia/Blood Transfusion Reactions: No Reported Reaction Past Psychological History: No Psychological Hx Reported Smoking Status: Never smoker Past Alcohol Use History: None Reported Past Drug Use History: None Reported - Past Family History Father Family Medical History: Cancer, Hypertension, Renal Disease Additional Family Medical History / Comment(s): Kidney Cancer General Exam - General Exam Comments Initial Comments: GENERAL: Patient is well-developed and well-nourished. Patient is nontoxic and well- hydrated and is in mild distress. ENT: Neck is soft and supple. No significant lymphadenopathy is noted. Oropharynx is clear. Moist mucous membranes. Neck has full range of motion without eliciting any pain. EYES: The sclera were anicteric and conjunctiva were pink and moist. Extraocular movements were intact and pupils were equal round and reactive to light. Eyelids were unremarkable. PULMONARY: Unlabored respirations. Good breath sounds bilaterally. No audible rales rhonchi or wheezing was noted. CARDIOVASCULAR: There is a regular rate and rhythm without any murmurs gallops or rubs. Patient has an occasional extrasystole. ABDOMEN: Soft and nontender with normal bowel sounds. No palpable organomegaly was noted. There is no palpable pulsatile mass. SKIN: Skin is clear with no lesions or rashes and otherwise unremarkable. NEUROLOGIC: Patient is alert and oriented x3. Cranial nerves II through XII are grossly intact. Motor and sensory are also intact. Normal speech, volume and content. Symmetrical smile. MUSCULOSKELETAL: Normal extremities with adequate strength and full range of motion. No lower extremity swelling or edema. No calf tenderness. LYMPHATICS: No significant lymphadenopathy is noted PSYCHIATRIC: Normal psychiatric evaluation. Normal interpersonal interactions appears functionally intact in deals appropriately with others. No signs of depression. No signs of anxiety. Limitations: no limitations Course Vital Signs 12/02/17 12/02/17 12/02/17 10:34 11:08 11:32 Temperature 96.9 F L Pulse Rate 77 63 64 Respiratory 16 16 18 Rate Blood Pressure 218/114 211/86 213/76 O2 Sat by Pulse 96 99 100 Oximetry 12/02/17 12/02/17 12/02/17 12:34 12:52 12:58 Temperature Pulse Rate 60 59 L 65 Respiratory 16 16 18 Rate Blood Pressure 188/68 180/73 175/74 O2 Sat by Pulse 100 99 100 Oximetry Medical Decision Making - Medical Decision Making EKG shows sinus rhythm at 66 bpm AK interval is 220 QRS is 158 QT interval is 458 QTC is 480. Patient's EKG shows no ST segment elevation or depression or T wave abnormalities are noted. Patient also strong one PVC on this EKG. Chest x-ray shows no acute abnormality Patient has been asymptomatic throughout his ED stay. Patient has high blood pressure we treated his blood pressure with hydralazine - Lab Data Result diagrams: 12/02/17 10:33 12/02/17 10:33 Lab Results 12/02/17 12/02/17 12/02/17 Range/Units 10:33 10:33 10:33 WBC 8.0 (3.8-10.6) k/uL RBC 3.65 L (4.30-5.90) m/uL Hgb 10.7 L (13.0-17.5) gm/dL Hct 33.6 L (39.0-53.0) % MCV 91.9 (80.0-100.0) fL MCH 29.2 (25.0-35.0) pg MCHC 31.7 (31.0-37.0) g/dL RDW 16.4 H (11.5-15.5) % Plt Count 522 H (150-450) k/uL Neutrophils % 72 % Lymphocytes % 12 % Monocytes % 7 % Eosinophils % 4 % Basophils % 1 % Neutrophils # 5.8 (1.3-7.7) k/uL Lymphocytes # 1.0 (1.0-4.8) k/uL Monocytes # 0.6 (0-1.0) k/uL Eosinophils # 0.4 (0-0.7) k/uL Basophils # 0.1 (0-0.2) k/uL Anisocytosis Slight PT (9.0-12.0) sec INR (<1.2) APTT (22.0-30.0) sec Sodium 143 (137-145) mmol/L Potassium 5.1 (3.5-5.1) mmol/L Chloride 110 H (98-107) mmol/L Carbon Dioxide 23 (22-30) mmol/L Anion Gap 10 mmol/L BUN 59 H (9-20) mg/dL Creatinine 2.33 H (0.66-1.25) mg/dL Est GFR (CKD-EPI)AfAm 29 (>60 ml/min/1.73 sqM) Est GFR (CKD-EPI)NonAf 25 (>60 ml/min/1.73 sqM) Glucose 108 H (74-99) mg/dL Calcium 9.4 (8.4-10.2) mg/dL Magnesium 2.3 (1.6-2.3) mg/dL Total Bilirubin 0.4 (0.2-1.3) mg/dL AST 20 (17-59) U/L ALT 22 (21-72) U/L Alkaline Phosphatase 44 (38-126) U/L Total Creatine Kinase 67 (55-170) U/L CK-MB (CK-2) 1.8 (0.0-2.4) ng/mL CK-MB (CK-2) Rel Index 2.7 Troponin I 0.020 (0.000-0.034) ng/mL Total Protein 6.2 L (6.3-8.2) g/dL Albumin 3.9 (3.5-5.0) g/dL TSH 1.660 (0.465-4.680) mIU/L Free T4 1.36 (0.78-2.19) ng/dL 12/02/17 Range/Units 10:33 WBC (3.8-10.6) k/uL RBC (4.30-5.90) m/uL Hgb (13.0-17.5) gm/dL Hct (39.0-53.0) % MCV (80.0-100.0) fL MCH (25.0-35.0) pg MCHC (31.0-37.0) g/dL RDW (11.5-15.5) % Plt Count (150-450) k/uL Neutrophils % % Lymphocytes % % Monocytes % % Eosinophils % % Basophils % % Neutrophils # (1.3-7.7) k/uL Lymphocytes # (1.0-4.8) k/uL Monocytes # (0-1.0) k/uL Eosinophils # (0-0.7) k/uL Basophils # (0-0.2) k/uL Anisocytosis PT 10.0 (9.0-12.0) sec INR 1.0 (<1.2) APTT 25.0 (22.0-30.0) sec Sodium (137-145) mmol/L Potassium (3.5-5.1) mmol/L Chloride (98-107) mmol/L Carbon Dioxide (22-30) mmol/L Anion Gap mmol/L BUN (9-20) mg/dL Creatinine (0.66-1.25) mg/dL Est GFR (CKD-EPI)AfAm (>60 ml/min/1.73 sqM) Est GFR (CKD-EPI)NonAf (>60 ml/min/1.73 sqM) Glucose (74-99) mg/dL Calcium (8.4-10.2) mg/dL Magnesium (1.6-2.3) mg/dL Total Bilirubin (0.2-1.3) mg/dL AST (17-59) U/L ALT (21-72) U/L Alkaline Phosphatase (38-126) U/L Total Creatine Kinase (55-170) U/L CK-MB (CK-2) (0.0-2.4) ng/mL CK-MB (CK-2) Rel Index Troponin I (0.000-0.034) ng/mL Total Protein (6.3-8.2) g/dL Albumin (3.5-5.0) g/dL TSH (0.465-4.680) mIU/L Free T4 (0.78-2.19) ng/dL Disposition Clinical Impression: Hypertension, PVCs (premature ventricular contractions) Disposition: HOME SELF-CARE Instructions: Premature Ventricular Contractions (ED) Is patient prescribed a controlled substance at d/c from ED?: No Referrals: Halie Ruffin MD [Primary Care Provider] - 1-2 days Time of Disposition: 12:32
[2017-12-02] MEDS: hydrALAZINE HCL 20 MG/ML 1 ML VIAL IVP STA ×2 (11:13→13:06)
[2017-12-02 11:19] LABS: Anisocytosis Slight; Basophils # (A) 0.1 k/uL (0-0.2); Basophils % (A) 1 %; Eosinophils # (A) 0.4 k/uL (0-0.7); Eosinophils % (A) 4 %; HCT 33.6 % (39.0-53.0); HGB 10.7 gm/dL (13.0-17.5); Lymphocytes % (A) 12 %; MCH 29.2 pg (25.0-35.0); MCHC 31.7 g/dL (31.0-37.0); MCV 91.9 fL (80.0-100.0); Mean Platelet Volume 9.2; Monocytes # (A) 0.6 k/uL (0-1.0); Monocytes % (A) 7 %; Neutrophils # (A) 5.8 k/uL (1.3-7.7); Neutrophils % (A) 72 %; Platelet Count 522 k/uL (150-450); RBC 3.65 m/uL (4.30-5.90); RDW 16.4 % (11.5-15.5)
[2017-12-02 11:24] LABS: Albumin 3.9 g/dL (3.5-5.0); Calcium 9.4 mg/dL (8.4-10.2); Magnesium 2.3 mg/dL (1.6-2.3); Potassium 5.1 mmol/L (3.5-5.1); Total Bilirubin 0.4 mg/dL (0.2-1.3); Total Protein 6.2 g/dL (6.3-8.2)
--- NOTE | 2017-12-02 11:36 | XR ---
EXAMINATION TYPE: XR chest 2V DATE OF EXAM: 12/02/2017 COMPARISON: 02/08/2017 TECHNIQUE: PA and lateral views submitted. HISTORY: Irregular heartbeat FINDINGS: The lungs are clear and there is no pneumothorax, pleural effusion, or focal pneumonia. Hyperinflat ion suggests COPD in the heart is borderline in size. Arthropathy of the shoulders and atheroscleroti c change aorta. Hypertrophic and degenerative change of the spine. IMPRESSION: 1. No acute process.
[2017-12-02 11:37] LABS: T4, Free (Free Thyroxine) 1.36 ng/dL (0.78-2.19)
[2017-12-02 11:45] LABS: Creatine Kinase MB 1.8 ng/mL (0.0-2.4); Troponin I 0.02 ng/mL (0.000-0.034)
[2017-12-02] MEDS ORDERED: hydrALAZINE HCL 20 MG/ML 1 ML VIAL IVP STA (12:30)
[2017-12-02 12:59] VITALS: PULSE 65; RESP 18
[2017-12-02] MEDS ORDERED: LISINOPRIL 10 MG TAB PO STA (13:45)
[2017-12-02 14:18] VITALS: BP 184/86
== END 2017-12-02 14:25 | disposition home or self-care (01) ==
LOC: EC 10:24
DX: I10 Essential (primary) hypertension (principal); I49.3 Ventricular premature depolarization; Z87.438 Personal history of other diseases of male genital organs; Z79.82 Long term (current) use of aspirin; Z79.899 Other long term (current) drug therapy; Z91.041 Radiographic dye allergy status
CPT/HCPCS: 36415; 93005; 84439; 80053; 82550; 82553; 83735; 84443; 84484; 85025; 85610; 85730; 71046; 99285; 96374; 96376 ×2; J0360

== ENCOUNTER → 2017-12-17 | Outpatient (CLI) | payer MEDICARE ==
--- NOTE | 2017-12-17 15:06 | US ---
EXAMINATION TYPE: US renal artery duplex complete DATE OF EXAM: 12/17/2017 COMPARISON: NONE CLINICAL HISTORY: I51.1 Hypertension secondary to other renal disord. MEASUREMENTS: RENAL SIZE: Rt Kidney: 9.5 x 3.1 x 4.1 without hydronephrosis. There are 2 cysts present, largest measuring 3.5 c m in the upper pole. Lt Kidney: 9.3 x 4.4 x 4.6 without hydronephrosis. There is lobulated contour with multiple cysts, la rgest in the upper pole measuring 1.1 cm. Aortic peak systolic velocity = 87.7 cm/s Left iliac artery is borderline ectatic at 1.5 cm. RESISTANCE INDEX Right: 0.77 Left: 0.75 RA/AO RATIO (< 3.5 ) Right: 1.9 Left: 1.5 RA VELOCITY ( < 180 cm/s) Right: 168cm/s, mid Left: 130cm/s, mid [facility] [employer] NOTES: Technically difficult study. Extensive overlying bowel gas worse on the left, george ent has CKD. Bilateral renal artery acceleration times are 0.7, limits of normal IMPRESSION: 1. Measurements of the bilateral renal arteries show no evidence for hemodynamically significant inge l artery stenosis by Doppler criteria. This is a technically difficult study due to overlying bowel g as. 2. No hydronephrosis.
== END | disposition home or self-care (01) ==
LOC: RADUSMAIN 08:42
PROVIDERS: ATTEND Internal Medicine
DX: I15.1 Hypertension secondary to other renal disorders (principal)
CPT/HCPCS: 93975

== ENCOUNTER 2018-10-20 09:28 | Inpatient (IN) | payer MEDICARE ==
--- NOTE | 2018-10-20 10:40 | ED ---
General Adult HPI - General Source: patient, RN notes reviewed Mode of arrival: ambulatory Limitations: no limitations <Koffi Rodriegs - Last Filed: 10/20/18 14:51> <Prakash Marin - Last Filed: 10/20/18 15:28> - General Chief complaint: Recheck/Abnormal Lab/Rx Stated complaint: High BP Time Seen by Provider: 10/20/18 10:05 - History of Present Illness Initial comments: 83-year-old male with a past medical history of hypertension, renal disease presents to the emergency department for a chief complaint of hypertension. Patient states that he usually checks his blood pressure around noon. States that over the past few weeks he has been checking it later in the day. States that he noticed that it has been much higher in the 180s later in the day before he takes his medication. Patient takes his daily medication at night. States that he called his doctor about this on Friday and they told him to take his dose earlier and it does not go down he she going to the emergency department. Patient states that his blood pressure did decrease on that day however this morning it was 199 so he decided to come to the ER. Patient states he is feeling very well. Denies headache chest pain shortness of breath abdominal pain or back pain. States he does not have any symptoms. States he is now taking his blood pressure every hour and it is higher than normal but never over 200. Patient has no other complaints at this time including shortness of breath, chest pain, abdominal pain, nausea or vomiting, headache, or visual changes. (Koffi Rodriges) - Related Data Home Medications Medication Instructions Recorded Confirmed Sodium Bicarbonate Tab 1,300 mg PO BID 05/24/14 10/20/18 Tamsulosin HCl [Flomax] 0.8 mg PO DAILY@1200 05/24/14 10/20/18 Allopurinol [Zyloprim] 150 mg PO PC-LUNCH 02/05/17 10/20/18 Anagrelide HCl [Agrylin] 1 mg PO BID@1200,1500 02/05/17 10/20/18 Aspirin 81 mg PO DAILY 02/05/17 10/20/18 Multivitamins, Thera [Multivitamin 1 tab PO BID@1200,1800 02/05/17 10/20/18 (formulary)] Bisoprolol Fumarate [Zebeta] 10 mg PO DAILY 12/02/17 10/20/18 Ascorbic Acid [Vitamin C] 500 mg PO W/SUPPER 10/20/18 10/20/18 Furosemide [Lasix] 40 mg PO DAILY 10/20/18 10/20/18 Lisinopril [Zestril] 10 mg PO DAILY@1200 10/20/18 10/20/18 NIFEdipine XL [Procardia Xl] 60 mg PO HS 10/20/18 10/20/18 Allergies Allergy/AdvReac Type Severity Reaction Status Date / Time Iodinated Contrast- Oral and AdvReac KIDNEY Verified 10/20/18 10:03 IV Dye FAILURE Review of Systems ROS Other: All systems not noted in ROS Statement are negative. <Koffi Rodriges - Last Filed: 10/20/18 14:51> ROS Other: All systems not noted in ROS Statement are negative. <Parkash Marin - Last Filed: 10/20/18 15:28> ROS Statement: Those systems with pertinent positive or pertinent negative responses have been documented in the HPI. 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 STOMACH CRAMPS OFF & ON- DIARRHEA LASTED 3-4 WEEKS IN 2013 History of Any Multi-Drug Resistant Organisms: None Reported Past Surgical History: Tonsillectomy Additional Past Surgical History / Comment(s): COLONOSCOPY 2004 Past Anesthesia/Blood Transfusion Reactions: No Reported Reaction Past Psychological History: No Psychological Hx Reported Smoking Status: Never smoker Past Alcohol Use History: None Reported Past Drug Use History: None Reported - Past Family History Father Family Medical History: Cancer, Hypertension, Renal Disease Additional Family Medical History / Comment(s): Kidney Cancer <Koffi Rodriges - Last Filed: 10/20/18 14:51> General Exam Limitations: no limitations General appearance: alert, in no apparent distress (Well appearing, pleasant, sitting up in bed) Head exam: Present: atraumatic, normocephalic, normal inspection Eye exam: Present: normal appearance, PERRL, EOMI. Absent: scleral icterus, conjunctival injection, periorbital swelling ENT exam: Present: normal exam, normal oropharynx, mucous membranes moist, TM's normal bilaterally, normal external ear exam Neck exam: Present: normal inspection, full ROM. Absent: tenderness, meningismus, lymphadenopathy Respiratory exam: Present: normal lung sounds bilaterally. Absent: respiratory distress, wheezes, rales, rhonchi, stridor Cardiovascular Exam: Present: regular rate, normal rhythm, normal heart sounds. Absent: systolic murmur, diastolic murmur, rubs, gallop, clicks GI/Abdominal exam: Present: soft, normal bowel sounds. Absent: distended, tenderness, guarding, rebound, rigid Neurological exam: Present: alert, oriented X3, CN II-XII intact, other (GCS15) Psychiatric exam: Present: normal affect, normal mood <Koffi Rodriges - Last Filed: 10/20/18 14:51> Course <Prakash Marin - Last Filed: 10/20/18 15:28> Vital Signs 10/20/18 10/20/18 10/20/18 09:33 10:48 10:50 Temperature 98.2 F Pulse Rate 77 Respiratory 16 Rate Blood Pressure 200/88 185/92 185/92 O2 Sat by Pulse 97 98 Oximetry 10/20/18 10/20/18 10/20/18 11:30 11:40 11:50 Temperature Pulse Rate 60 Respiratory Rate Blood Pressure 222/102 220/85 216/87 O2 Sat by Pulse Oximetry 10/20/18 10/20/18 10/20/18 12:10 12:20 12:40 Temperature Pulse Rate 60 Respiratory 18 Rate Blood Pressure 224/87 224/87 217/89 O2 Sat by Pulse 97 99 Oximetry 10/20/18 10/20/18 10/20/18 12:50 13:37 14:51 Temperature Pulse Rate 72 78 Respiratory 18 18 Rate Blood Pressure 214/80 224/89 206/90 O2 Sat by Pulse 98 96 Oximetry - Reevaluation(s) Reevaluation #1: 10/20/18 15:27 Patient reevaluated and reexamined by myself, Dr. Marin. I do agree with PAs findings. This includes diagnostic interpretation and treatment plan. Patient is resting comfortably and blood. Patient does have continued hypertension despite several medications. Case was discussed in detail with Dr. Rand, who will admit for hospital call. (Prakash Marin) Medical Decision Making - Lab Data Result diagrams: 10/20/18 12:09 10/20/18 12:09 <Koffi Rodriges Last Filed: 10/20/18 14:51> - Lab Data Result diagrams: 10/20/18 12:09 10/20/18 12:09 <Prakash Marin - Last Filed: 10/20/18 15:28> - Medical Decision Making 83-year-old male presents with a past medical history of hypertension for a chief complaint of hypertension. States he started taking his blood pressure later in the day and noticed it is higher than when he normally checks it at noon. Patient has been taking his medications which are administered PM. Patient denying any and the mother complains whatsoever. No chest pain, shortness of breath, headache, back pain, abdominal pain. On presentation to the emergency department his blood pressure was initially 200/88. It was rechecked and was 185/92. At that point patient was given oral lisinopril. However when his blood pressure was rechecked it was 222/102. He was then given IV hydralazine and it remained in the 220s. Second dose of IV the hydralazine given which remained in the 210s. Patient then given enalapril and his beta spencer. At this point patient is having refractory hypertension. Therefore discussed case with Dr. Marin, we do agree patient should be admitted for furthe r management. Patient does agree with this. (Koffi Rodriges) - Lab Data Lab Results 10/20/18 10/20/18 10/20/18 Range/Units 12:09 12:09 12:09 WBC 6.0 (3.8-10.6) k/uL RBC 3.31 L (4.30-5.90) m/uL Hgb 9.5 L (13.0-17.5) gm/dL Hct 31.8 L (39.0-53.0) % MCV 96.1 (80.0-100.0) fL MCH 28.7 (25.0-35.0) pg MCHC 29.9 L (31.0-37.0) g/dL RDW 16.4 H (11.5-15.5) % Plt Count 505 H (150-450) k/uL Neutrophils % 78 % Lymphocytes % 9 % Monocytes % 5 % Eosinophils % 4 % Basophils % 1 % Neutrophils # 4.7 (1.3-7.7) k/uL Lymphocytes # 0.5 L (1.0-4.8) k/uL Monocytes # 0.3 (0-1.0) k/uL Eosinophils # 0.2 (0-0.7) k/uL Basophils # 0.0 (0-0.2) k/uL Hypochromasia Slight Anisocytosis Slight Sodium 145 (137-145) mmol/L Potassium 4.8 (3.5-5.1) mmol/L Chloride 112 H (98-107) mmol/L Carbon Dioxide 25 (22-30) mmol/L Anion Gap 8 mmol/L BUN 90 H (9-20) mg/dL Creatinine 3.08 H (0.66-1.25) mg/dL Est GFR (CKD-EPI)AfAm 21 (>60 ml/min/1.73 sqM) Est GFR (CKD-EPI)NonAf 18 (>60 ml/min/1.73 sqM) Glucose 87 (74-99) mg/dL Calcium 9.4 (8.4-10.2) mg/dL Total Bilirubin 0.4 (0.2-1.3) mg/dL AST 14 L (17-59) U/L ALT 16 L (21-72) U/L Alkaline Phosphatase 39 (38-126) U/L Total Protein 6.2 L (6.3-8.2) g/dL Albumin 3.8 (3.5-5.0) g/dL Urine Color Light Yellow Urine Appearance Clear (Clear) Urine pH 7.0 (5.0-8.0) Ur Specific [place] 1.010 (1.001-1.035) Urine Protein 1+ H (Negative) Urine Glucose (UA) Negative (Negative) Urine Ketones Negative (Negative) Urine Blood Negative (Negative) Urine Nitrite Negative (Negative) Urine Bilirubin Negative (Negative) Urine Urobilinogen <2.0 (<2.0) mg/dL Ur Leukocyte Esterase Negative (Negative) Urine RBC 1 (0-5) /hpf Urine WBC <1 (0-5) /hpf Disposition Is patient prescribed a controlled substance at d/c from ED?: No Time of Disposition: 11:23 <Koffi Rodriges - Last Filed: 10/20/18 14:51> <Prakash Marin - Last Filed: 10/20/18 15:28> Clinical Impression: Hypertension, Chronic kidney disease, stage IV (severe) Disposition: ADMITTED IP TO THIS HOSP Condition: Fair Additional Instructions: If your blood pressure is high you make take an extra dose of lisinopril daily. Please follow-up with primary care as soon as possible for medication review and possible adjustment. Please return here to the emergency Department if you're having any worsening symptoms. Referrals: Halie Ruffin MD [Primary Care Provider] - 1-2 days
[2018-10-20] MEDS ORDERED: cloNIDine HCL 0.2 MG TAB PO STA (10:58)
[2018-10-20] MEDS ORDERED: LISINOPRIL 10 MG TAB PO STA (11:05)
[2018-10-20] MEDS ORDERED: hydrALAZINE HCL 20 MG/ML 1 ML VIAL IVP STA ×2 (11:52→12:59)
[2018-10-20] MEDS ORDERED: SODIUM CHLORIDE 0.9% 500 ML 500 ML IV STA (11:52)
[2018-10-20 12:25] LABS: Anisocytosis Slight; Basophils % (A) 1 %; Eosinophils # (A) 0.2 k/uL (0-0.7); Eosinophils % (A) 4 %; HCT 31.8 % (39.0-53.0); HGB 9.5 gm/dL (13.0-17.5); Hypochromasia Slight; Lymphocytes # (A) 0.5 k/uL (1.0-4.8); Lymphocytes % (A) 9 %; MCH 28.7 pg (25.0-35.0); MCHC 29.9 g/dL (31.0-37.0); MCV 96.1 fL (80.0-100.0); Monocytes # (A) 0.3 k/uL (0-1.0); Monocytes % (A) 5 %; Neutrophils # (A) 4.7 k/uL (1.3-7.7); Neutrophils % (A) 78 %; Platelet Count 505 k/uL (150-450); RBC 3.31 m/uL (4.30-5.90); RDW 16.4 % (11.5-15.5)
[2018-10-20 12:36] LABS: Albumin 3.8 g/dL (3.5-5.0); Calcium 9.4 mg/dL (8.4-10.2); Potassium 4.8 mmol/L (3.5-5.1); Total Bilirubin 0.4 mg/dL (0.2-1.3); Total Protein 6.2 g/dL (6.3-8.2)
[2018-10-20 12:37] LABS: Appearance,Urine Clear (Clear); Bilirubin,Urine Negative (Negative); Blood,Urine Negative (Negative); Color,Urine Light Yellow; Glucose,Urine (UA) Negative (Negative); Ketones,Urine Negative (Negative); Leukocyte Esterase,Urine Negative (Negative); Nitrite,Urine Negative (Negative); Protein,Urine 1+ (Negative); RBC,Urine 1 /hpf (0-5); Urobilinogen,Urine <2.0 mg/dL (<2.0); WBC,Urine <1 /hpf (0-5)
[2018-10-20] MEDS: BISOPROLOL 5 MG TAB PO STA ×2 (14:20→14:48)
[2018-10-20] MEDS ORDERED: ENALAPRILAT 1.25 MG/ML 1 ML VIAL IVP STA (14:39)
[2018-10-20] MEDS ORDERED: NALOXONE 0.4 MG/ML 1 ML VIAL IV PRN (14:48)
[2018-10-20] MEDS ORDERED: SODIUM CHLORIDE 0.9% 1,000 ML IV SCH (15:00)
[2018-10-20] MEDS ORDERED: hydrALAZINE HCL 20 MG/ML 1 ML VIAL IVP PRN (15:02)
--- NOTE | 2018-10-20 16:03 | XR ---
EXAMINATION TYPE: XR chest 1V DATE OF EXAM: 10/20/2018 COMPARISON: 12/02/2017 HISTORY: Congestive heart failure and shortness of breath TECHNIQUE: Single frontal view of the chest is obtained. FINDINGS: There is an enlarged cardiomediastinal silhouette however there is no pulmonary vascular c ongestion or interstitial edema. There is trace linear atelectasis at the left costophrenic angle. Re mainder the lungs are clear. No focal consolidation, pleural effusion or pneumothorax. IMPRESSION: Cardiomegaly without radiographic sequela of decompensated congestive heart failure. Nandini y minimal subsegmental atelectasis is seen at the left costophrenic angle.
--- NOTE | 2018-10-20 16:37 | P.HPIM ---
History of Present Illness 81-year-old pleasant gentleman came in with compensable with blood pressure patient is concerned that his systolics are going up above 200. Patient was asked to take extra dose of lisinopril by his PCP. His which his blood pr essure didn't come down because of which patient came to ER. Patient didn't take his morning medications today. Patient denied any headache denied any blurry vision, denied chest pain or shortness of breath or abdominal pain. Patient doesn't have any signs or symptoms of end organ damage his creatinine is 3.0 baseline is around 2.7 patient has chronic kidney disease stage IV. Patient's BUN is 90 as well as may have a competent of some prerenal azotemia. Patient does have history of chronic diastolic dysfunction for which patient takes Lasix at home. Patient did show me all his blood pressure readings at home. Yesterday his readings of systolic blood pressures are actually as low as 111 and multiple readings in 120- systolics. I do not believe patient has uncontrolled hypertension but patient has some normal physiologic response during the day of elevated blood pressures to environmental stressors. Because of that reason I'll resume his home medications but will not add any other new medications and monitor him overnight. Possibly of discharge tomorrow. Patient will be enco uraged to continue noting down his blood pressure readings. Counseling was provided regarding appropriate way of checking the blood pressure and using an appropriate machine. Review of Systems REVIEW OF SYSTEMS: CONSTITUTIONAL: No fever, no malaise, no fatigue. HEENT: No recent visual problems or hearing problems. Denied any sore throat. CARDIOVASCULAR: No chest pain, orthopnea, PND, no palpitations, no syncope. PULMONARY: No shortness of breath, no cough, no hemoptysis. GASTROINTESTINAL: No diarrhea, no nausea, no vomiting, no abdominal pain. NEUROLOGICAL: No headaches, no weakness, no numbness. HEMATOLOGICAL: Denies any bleeding or petechiae. GENITOURINARY: Denies any burning micturition, frequency, or urgency. MUSCULOSKELETAL/RHEUMATOLOGICAL: Denies any joint pain, swelling, or any muscle pain. ENDOCRINE: Denies any polyuria or polydipsia. The rest of the 14-point review of systems is negative. 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 STOMACH CRAMPS OFF & ON- DIARRHEA LASTED 3-4 WEEKS IN 2013 History of Any Multi-Drug Resistant Organisms: None Reported Past Surgical History: Tonsillectomy Additional Past Surgical History / Comment(s): COLONOSCOPY 2004 Past Anesthesia/Blood Transfusion Reactions: No Reported Reaction Past Psychological History: No Psychological Hx Reported Smoking Status: Never smoker Past Alcohol Use History: None Reported Past Drug Use History: None Reported - Past Family History Father Family Medical History: Cancer, Hypertension, Renal Disease Additional Family Medical History / Comment(s): Kidney Cancer Medications and Allergies Home Medications Medication Instructions Recorded Confirmed Type Sodium Bicarbonate Tab 1,300 mg PO BID 05/24/14 10/20/18 History Tamsulosin HCl [Flomax] 0.8 mg PO DAILY@1200 05/24/14 10/20/18 History Allopurinol [Zyloprim] 150 mg PO PC-LUNCH 02/05/17 10/20/18 History Anagrelide HCl [Agrylin] 1 mg PO BID@1200,1500 02/05/17 10/20/18 History Aspirin 81 mg PO DAILY 02/05/17 10/20/18 History Multivitamins, Thera [Multivitamin 1 tab PO BID@1200,1800 02/05/17 10/20/18 History (formulary)] Bisoprolol Fumarate [Zebeta] 10 mg PO DAILY 12/02/17 10/20/18 History Ascorbic Acid [Vitamin C] 500 mg PO W/SUPPER 10/20/18 10/20/18 History Furosemide [Lasix] 40 mg PO DAILY 10/20/18 10/20/18 History Lisinopril [Zestril] 10 mg PO DAILY@1200 10/20/18 10/20/18 History NIFEdipine XL [Procardia Xl] 60 mg PO HS 10/20/18 10/20/18 History Allergies Allergy/AdvReac Type Severity Reaction Status Date / Time Iodinated Contrast- Oral and AdvReac KIDNEY Verified 10/20/18 10:03 IV Dye FAILURE Physical Exam Vitals: Vital Signs Temp Pulse Resp BP Pulse Ox 10/20/18 16:18 193/79 10/20/18 15:31 77 18 204/82 96 10/20/18 14:51 78 18 206/90 96 10/20/18 13:37 72 18 224/89 10/20/18 12:50 214/80 98 10/20/18 12:40 217/89 99 10/20/18 12:20 224/87 10/20/18 12:10 60 18 224/87 97 10/20/18 11:50 60 216/87 10/20/18 11:40 220/85 10/20/18 11:30 222/102 10/20/18 10:50 185/92 98 10/20/18 10:48 185/92 10/20/18 09:33 98.2 F 77 16 200/88 97 Intake and Output 10/20/18 10/20/18 10/20/18 06:59 14:59 22:59 Other: Weight 65.771 kg PHYSICAL EXAMINATION: GENERAL: The patient is alert and oriented x3, not in any acute distress. Well developed, well nourished. HEENT: Pupils are round and equally reacting to light. EOMI. No scleral icterus. No conjunctival pallor. Normocephalic, atraumatic. No pharyngeal erythema. No thyromegaly. CARDIOVASCULAR: S1 and S2 present. No rubs, or gallops. She has a diastolic murmur in mitral area PULMONARY: Chest is clear to auscultation, no wheezing or crackles. ABDOMEN: Soft, nontender, nondistended, normoactive bowel sounds. No palpable organomegaly. MUSCULOSKELETAL: No joint swelling or deformity. EXTREMITIES: No cyanosis, clubbing, or pedal edema. NEUROLOGICAL: Gross neurological examination did not reveal any focal deficits. SKIN: No rashes. Results CBC & Chem 7: 10/20/18 12:09 10/20/18 12:09 Labs: Abnormal Lab Results - Last 24 Hours (Table) 10/20/18 10/20/18 10/20/18 Range/Units 12:09 12:09 12:09 RBC 3.31 L (4.30-5.90) m/uL Hgb 9.5 L (13.0-17.5) gm/dL Hct 31.8 L (39.0-53.0) % MCHC 29.9 L (31.0-37.0) g/dL RDW 16.4 H (11.5-15.5) % Plt Count 505 H (150-450) k/uL Lymphocytes # 0.5 L (1.0-4.8) k/uL Chloride 112 H (98-107) mmol/L BUN 90 H (9-20) mg/dL Creatinine 3.08 H (0.66-1.25) mg/dL AST 14 L (17-59) U/L ALT 16 L (21-72) U/L Total Protein 6.2 L (6.3-8.2) g/dL Urine Protein 1+ H (Negative) Assessment and Plan Plan: Elevated blood pressure accelerated hypertension: His blood pressure is elevated because of physiologic and mild mental stressors. I was able to come to this conclusion because of his home blood pressure readings which are within normal limits no additional medications will be given patient will be monitored overnight here. -Chronic kidney disease stage IV patient's creatinine is close to his baseline patient will be resumed on home dose of Lasix and IV fluids will be discontinued with concerns of elevated blood pressure. Considering that patient has chronic kidney disease patient will be resumed on his lisinopril -Can start failure chronic diastolic dysfunction without any acute exacerbation patient is presently euvolemic at this time -Severe mitral regurgitation -Possible history of prostate cancer for which patient is on hormone therapy Due to prophylaxis early ambulation
[2018-10-20] MEDS: SODIUM BICARBONATE TAB 650 MG TAB PO SCH (23:20)
[2018-10-21] MEDS: TAMSULOSIN 0.4 MG CAP.ER.24H PO SCH ×2 (00:36→12:17)
[2018-10-21] MEDS: ANAGRELIDE 0.5 MG CAP PO SCH ×3 (00:37→16:46)
[2018-10-21 07:15] LABS: Anisocytosis Slight; HCT 28.1 % (39.0-53.0); HGB 8.6 gm/dL (13.0-17.5); Hypochromasia Slight; MCH 29.8 pg (25.0-35.0); MCHC 30.7 g/dL (31.0-37.0); MCV 96.9 fL (80.0-100.0); Mean Platelet Volume 8.9; Platelet Count 451 k/uL (150-450); RDW 16.5 % (11.5-15.5); WBC 5.8 k/uL (3.8-10.6)
[2018-10-21 07:25] LABS: Calcium 8.8 mg/dL (8.4-10.2); Potassium 4.8 mmol/L (3.5-5.1)
[2018-10-21] MEDS: FUROSEMIDE 40 MG TAB PO SCH (08:28)
[2018-10-21] MEDS: SODIUM BICARBONATE TAB 650 MG TAB PO SCH ×2 (08:28→20:36)
[2018-10-21] MEDS: ASPIRIN 81 MG PO SCH (08:28)
[2018-10-21] MEDS ORDERED: BISOPROLOL 5 MG TAB PO SCH (09:00)
[2018-10-21] MEDS ORDERED: LISINOPRIL 10 MG TAB PO SCH (09:00)
[2018-10-21] MEDS ORDERED: NIFEdipine XL 30 MG TAB.ER.24 PO ONE (09:00)
[2018-10-21] MEDS ORDERED: LISINOPRIL 20 MG TAB PO SCH (09:00)
[2018-10-21] MEDS: NADOLOL 20 MG TAB PO SCH (09:26)
--- NOTE | 2018-10-21 10:30 | P.CRDCN ---
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 The patient follows in the office with Dr. Carmichael. We have been asked to see him in consultation secondary to hypertension. He states he was at home when checking his blood pressure and his blood pressures were elevated over 200 systolic prompted him to come to the emergency room for evaluation. On arrival blood pressure was 200/88 and 185/92. He states prior to arrival he had not taken any of his antihypertensives. He is currently prescribed by bisprolol 10 milligrams daily in the morning, lisinopril 10 mg at noontime, nifedipine 60 mg at bedtime, Lasix 40 mg daily and aspirin 81 mg daily. He was given hydralazine and enalapril IV in the emergency department. Blood pressure now is 178/64 with a heart rate of 74. He denies any symptoms of chest discomfort, shortness of breath, dizziness or palpitations yesterday or today. He also denies any symptoms of blurred vision, headache or neck discomfort. He is seen and examined resting comfortably in no acute distress. EKG reveals right bundle branch block pattern with a first-degree AV block and left axis deviation with no acute ST abnormalities. Chest x-ray reveals cardiomegaly. Laboratory data reviewed, WBC 5.8, hemoglobin 8.6, platelets 451, sodium 146, potassium 4.8, creatinine 3.01 with a GFR of 18. He recently had a renal artery duplex which was negative for significant stenosis. Most recent echocardiogram obtained in the office March 2018 revealed preserved LV systolic function with ejection fraction 55%, moderately dilated left atrium, mild to moderate mitral regurgitation, mild aortic regurgitation, mild tricuspid regurgitation and moderate pulmonary hypertension with an RVSP of 34 mmHg. At the time of my exam: CONSTITUTIONAL: Denies fever. Denies chills. EYES: Denies blurred vision. Denies vision changes. Denies eye pain. EARS, NOSE, MOUTH & THROAT: Denies headache. Denies sore throat. Denies ear pain. CARDIOVASCULAR: Denies chest pain. Denies shortness of breath. Denies orthopnea. Denies PND. Denies palpitations. RESPIRATORY: Denies cough. GASTROINTESTINAL: Denies abdominal pain. Denies diarrhea. Denies constipation. Denies nausea. Denies vomiting. MUSCULOSKELETAL: Denies myalgias. INTEGUMENTARY: Denies pruitis. Denies rash. NEUROLOGIC: Denies numbness. Denies tingling. Denies weakness. PSYCHIATRIC: Denies anxiety. Denies depression. ENDOCRINE: Denies fatigue. Denies weight change. Denies polydipsia. Denies polyurina. GENITOURINARY: Denies burning, hematuria or urgency with micturation. HEMATOLOGIC: Denies history of anemia. Denies bleeding. Blood pressure 170/64 heart rate 74 afebrile maintaining oxygen saturation on room air GENERAL: This is a 83-year-old male in no apparent distress at the time of my examination. HEENT: Head is atraumatic, normocephalic. Pupils are equal, round. Sclerae anicteric. Conjunctivae are clear. Mucous membranes of the mouth are moist. Neck is supple. There is no jugular venous distention. Faint bilateral carotid bruit is heard. LUNGS: Clear to auscultation no wheezes, rales or rhonchi. No chest wall tenderness is noted on palpation or with deep breathing. HEART: Regular rate and rhythm with systolic ejection murmur at the base, no rubs or gallops. S1 and S2 heard. ABDOMEN: Soft, nontender. Bowel sounds are heard. No organomegaly noted. EXTREMITIES: No evidence of peripheral edema and no calf tenderness noted. VASCULAR: Radial and dorsalis pedis pulses palpated, no evidence of clubbing. NEUROLOGIC: Patient is awake, alert and oriented x3. 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 Increase nifedipine to 90 mg daily. Continue lisinopril 10 mg in the afternoon. Obtain 2-D echocardiogram and Doppler study to assess cardiac structure and function. Continue to monitor blood pressure for another 24 hours. Further recommendations to follow based upon clinical course. Thank you kindly for this consultation. Nurse Practitioner note has been reviewed, I agree with a documented findings and plan of care. Patient was seen and examined. 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 STOMACH CRAMPS OFF & ON- DIARRHEA LASTED 3-4 WEE[address] IN [address] High [address] atelets History of Any Multi-Drug Resistant Organisms: None Reported Past Surgical History: Tonsillectomy Additional Past Surgical History / Comment(s): COLONOSCOPY 2004 Past Anesthesia/Blood Transfusion Reactions: No Reported Reaction Smoking Status: Never smoker - Past Family History Father Family Medical History: Cancer, Hypertension, Renal Disease Additional Family Medical History / Comment(s): Kidney Cancer Medications and Allergies Home Medications Medication Instructions Recorded Confirmed Type Sodium Bicarbonate Tab 1,300 mg PO BID 05/24/14 10/20/18 History Tamsulosin HCl [Flomax] 0.8 mg PO DAILY@1200 05/24/14 10/20/18 History Allopurinol [Zyloprim] 150 mg PO PC-LUNCH 02/05/17 10/20/18 History Anagrelide HCl [Agrylin] 1 mg PO BID@1200,1500 02/05/17 10/20/18 History Aspirin 81 mg PO DAILY 02/05/17 10/20/18 History Multivitamins, Thera [Multivitamin 1 tab PO BID@1200,1800 02/05/17 10/20/18 History (formulary)] Bisoprolol Fumarate [Zebeta] 10 mg PO DAILY 12/02/17 10/20/18 History Ascorbic Acid [Vitamin C] 500 mg PO W/SUPPER 10/20/18 10/20/18 History Furosemide [Lasix] 40 mg PO DAILY 10/20/18 10/20/18 History Lisinopril [Zestril] 10 mg PO DAILY@1200 10/20/18 10/20/18 History NIFEdipine XL [Procardia Xl] 60 mg PO HS 10/20/18 10/20/18 History Allergies Allergy/AdvReac Type Severity Reaction Status Date / Time Iodinated Contrast- Oral and AdvReac KIDNEY Verified 10/20/18 23:48 IV Dye FAILURE Physical Exam Vitals: Vital Signs Temp Pulse Pulse Resp BP BP Pulse Ox 10/21/18 07:51 98.1 F 74 16 178/64 96 10/21/18 04:00 98 F 79 18 169/57 96 10/21/18 03:04 18 10/21/18 00:00 18 10/20/18 23:59 98 F 69 18 204/79 98 10/20/18 23:20 98 F 71 18 205/95 98 06/11/19 22:07 63 18 198/86 98 10/20/18 19:27 98 F 77 18 192/90 97 10/20/18 17:11 70 18 195/84 97 10/20/18 16:18 193/79 10/20/18 15:31 77 18 204/82 96 10/20/18 14:51 78 18 206/90 96 10/20/18 13:37 72 18 224/89 10/20/18 12:50 214/80 98 10/20/18 12:40 217/89 99 10/20/18 12:20 224/87 10/20/18 12:10 60 18 224/87 97 10/20/18 11:50 60 216/87 10/20/18 11:40 220/85 10/20/18 11:30 222/102 10/20/18 10:50 185/92 98 10/20/18 10:48 185/92 Intake and Output 10/20/18 10/21/18 10/21/18 22:59 06:59 14:59 Other: # Voids 1 Results 10/21/18 06:50 10/21/18 06:50 Cardiac Enzymes 10/20/18 Range/Units 12:09 AST 14 L (17-59) U/L CBC 10/20/18 10/21/18 Range/Units 12:09 06:50 WBC 6.0 5.8 (3.8-10.6) k/uL RBC 3.31 L 2.90 L (4.30-5.90) m/uL Hgb 9.5 L 8.6 L (13.0-17.5) gm/dL Hct 31.8 L 28.1 L (39.0-53.0) % Plt Count 505 H 451 H (150-450) k/uL Comprehensive Metabolic Panel 10/20/18 10/21/18 Range/Units 12:09 06:50 Sodium 145 146 H (137-145) mmol/L Potassium 4.8 4.8 (3.5-5.1) mmol/L Chloride 112 H 116 H (98-107) mmol/L Carbon Dioxide 25 24 (22-30) mmol/L BUN 90 H 85 H (9-20) mg/dL Creatinine 3.08 H 3.01 H (0.66-1.25) mg/dL Glucose 87 81 (74-99) mg/dL Calcium 9.4 8.8 (8.4-10.2) mg/dL AST 14 L (17-59) U/L ALT 16 L (21-72) U/L Alkaline Phosphatase 39 (38-126) U/L Total Protein 6.2 L (6.3-8.2) g/dL Albumin 3.8 (3.5-5.0) g/dL Current Medications Generic Name Dose Route Start Last Admin Trade Name Freq PRN Reason Stop Dose Admin Allopurinol 150 mg 10/21/18 13:30 Zyloprim PO PC-LUNCH CURTIS Anagrelide HCl 1 mg 10/21/18 00:11 10/21/18 00:37 Agrylin PO 1 mg BID@1200,1500 CURTIS Administration Aspirin 81 mg 10/21/18 09:00 10/21/18 08:28 Aspirin PO 81 mg DAILY CURTIS Administration Furosemide 40 mg 10/21/18 09:00 10/21/18 08:28 Lasix PO 40 mg DAILY CURTIS Administration Lisinopril 10 mg 10/22/18 12:00 Zestril PO 1200 CURTIS Nadolol 40 mg 10/21/18 09:00 10/21/18 09:26 Corgard PO 40 mg DAILY CURTIS Administration Naloxone HCl 0.2 mg 10/20/18 14:48 Narcan IV Q2M PRN Opioid Reversal Nifedipine 90 mg 10/22/18 09:00 Procardia Xl PO DAILY CURTIS Sodium Bicarbonate 1,300 mg 10/20/18 21:00 10/21/18 08:28 Sodium Bicarbonate Tab PO 1,300 mg BID CURTIS Administration Tamsulosin HCl 0.8 mg 10/21/18 00:15 10/21/18 00:36 Flomax PO 0.8 mg DAILY@1200 CURTIS Administration Intake and Output 10/20/18 10/21/18 10/21/18 22:59 06:59 14:59 Other: # Voids 1 10/21/18 06:50 10/21/18 06:50
[2018-10-21] MEDS ORDERED: TAMSULOSIN 0.4 MG CAP.ER.24H PO SCH (12:00)
[2018-10-21] MEDS ORDERED: ANAGRELIDE 0.5 MG CAP PO SCH (12:00)
[2018-10-21] MEDS: ALLOPURINOL 300 MG TAB PO SCH (12:20)
--- NOTE | 2018-10-21 14:33 | P.PN ---
Subjective -year-old male was admitted because of elevated blood pressures patient blood pressure today is 168 with 69 cardiology evaluated the patient and the they started the patient on nodolol and bisiprolol was discontinued patient need to be in dose was increased as well. All this is appropriate because the patient blood pressures were consistently elevated since last night. I wanted to discharge the patient but the cardiology is recommending to monitor the patient 1 more night. Constitutional: Denied any fatigue denied any fever. Cardio vascular: denied any chest pain, palpitations Gastrointestinal denied any nausea vomiting Pulmonary: Denied any shortness of breath cough Neurologic denied any new focal deficits All inpatient medications were reviewed and appropriate changes in these medications as dictated in the interval history and assessment and plan. Objective - Vital Signs Vital signs: Vital Signs Temp 97.4 F L 10/21/18 12:00 Pulse 68 10/21/18 12:00 Resp 16 10/21/18 12:00 BP 168/69 10/21/18 12:00 Pulse Ox 95 10/21/18 12:00 Intake & Output 10/20/18 10/21/18 10/21/18 18:59 06:59 18:59 Intake Total 240 Balance 240 Weight 65.771 kg Intake: Oral 240 Other: # Voids 1 1 - Exam PHYSICAL EXAMINATION: GENERAL: The patient is alert and oriented x3, not in any acute distress. Well developed, well nourished. HEENT: Pupils are round and equally reacting to light. EOMI. No scleral icterus. No conjunctival pallor. Normocephalic, atraumatic. No pharyngeal erythema. No thyromegaly. CARDIOVASCULAR: S1 and S2 present. No murmurs, rubs, or gallops. PULMONARY: Chest is clear to auscultation, no wheezing or crackles. ABDOMEN: Soft, nontender, nondistended, normoactive bowel sounds. No palpable organomegaly. MUSCULOSKELETAL: No joint swelling or deformity. EXTREMITIES: No cyanosis, clubbing, or pedal edema. NEUROLOGICAL: Gross neurological examination did not reveal any focal deficits. SKIN: No rashes. - Labs CBC & Chem 7: 10/21/18 06:50 10/21/18 06:50 Labs: Abnormal Lab Results - Last 24 Hours (Table) 10/21/18 10/21/18 Range/Units 06:50 06:50 RBC 2.90 L (4.30-5.90) m/uL Hgb 8.6 L (13.0-17.5) gm/dL Hct 28.1 L (39.0-53.0) % MCHC 30.7 L (31.0-37.0) g/dL RDW 16.5 H (11.5-15.5) % Plt Count 451 H (150-450) k/uL Sodium 146 H (137-145) mmol/L Chloride 116 H (98-107) mmol/L BUN 85 H (9-20) mg/dL Creatinine 3.01 H (0.66-1.25) mg/dL Assessment and Plan Plan: Elevated blood pressure accelerated hypertension: Medication changes and plan as mentioned above -Chronic kidney disease stage IV patient's creatinine is close to his baseline patient will be resumed on home dose of Lasix and IV fluids will be discontinued with concerns of elevated blood pressure. Considering that patient has chronic kidney disease patient will be resumed on his lisinopril -Congestive heart failure chronic diastolic dysfunction without any acute exacerbation patient is presently euvolemic at this time -Severe mitral regurgitation -Possible history of prostate cancer for which patient is on hormone therapy Due to prophylaxis early ambulation
[2018-10-21 18:05] VITALS: RESP 16
--- NOTE | 2018-10-21 20:00 | ECHOF ---
Referral Reason:elev bp, murmur MEASUREMENTS -------- HEIGHT: 180.3 cm WEIGHT: 65.8 kg BP: RVIDd: 2.9 cm (< 3.3) IVSd: 1.2 cm (0.6 - 1.1) LVIDd: 4.8 cm (3.9 - 5.3) LVPWd: 1.3 cm (0.6 - 1.1) IVSs: 2.2 cm LVIDs: 2.5 cm LVPWs: 2.3 cm LAESV Index (A-L): 36.44 ml/m Ao Diam: 3.5 cm (2.0 - 3.7) AV Cusp: 1.7 cm (1.5 - 2.6) LA Diam: 3.7 cm (2.7 - 3.8) MV EXCURSION: 21.866 mm (> 18.000) MV EF SLOPE: 126 mm/s (70 - 150) EPSS: 0.5 cm AR PHT: 209 ms RAP: 5.00 mmHg RVSP: 50.41 mmHg FINDINGS -------- Sinus rhythm. This was a technically good study. The left ventricular size is normal. There is mild concentric left ventricular hypertrophy. Overa ll left ventricular systolic function is normal with, an EF between 55 - 60 %. The right ventricle is normal in size. LA is moderately dilated 34-39 ml/m2 The right atrial size is normal. Interatrial and interventricular septum intact. Aortic valve is trileaflet and is mildly thickened. Trace amount of aortic regurgitation. The mitral valve is normal. Moderate mitral regurgitation is present. [id number] tricuspid regurgitation present. There is mild to moderate pulmonary hypertension. The right ventricular systolic pressure, as measured by Doppler, is 50.41mmHg. There is no pulmonic regurgitation present. The aortic root size is normal. The inferior vena cava is mildly dilated. There is no pericardial effusion. CONCLUSIONS -------- 1. Sinus rhythm. 2. This was a technically good study. 3. The left ventricular size is normal. 4. There is mild concentric left ventricular hypertrophy. 5. Overall left ventricular systolic function is normal with, an EF between 55 - 60 %. 6. The right ventricle is normal in size. 7. LA is moderately dilated 34-39 ml/m2 8. The right atrial size is normal. 9. Interatrial and interventricular septum intact. 10. Aortic valve is trileaflet and is mildly thickened. 11. Trace amount of aortic regurgitation. 12. The mitral valve is normal. 13. Moderate mitral regurgitation is present. 14. [id number] tricuspid regurgitation present. 15. There is mild to moderate pulmonary hypertension. 16. The right ventricular systolic pressure, as measured by Doppler, is 50.41mmHg. 17. There is no pulmonic regurgitation present. 18. The aortic root size is normal. 19. The inferior vena cava is mildly dilated. 20. There is no pericardial effusion. DRESSAGE JUDGE: Laura Smith RDCS
[2018-10-22] MEDS: SODIUM BICARBONATE TAB 650 MG TAB PO SCH (07:58)
[2018-10-22] MEDS: ASPIRIN 81 MG PO SCH (07:59)
[2018-10-22] MEDS: FUROSEMIDE 40 MG TAB PO SCH (07:59)
[2018-10-22] MEDS: NADOLOL 20 MG TAB PO SCH (07:59)
[2018-10-22] MEDS ORDERED: NIFEdipine XL 90 MG TAB.ER.24 PO SCH (09:00)
[2018-10-22] MEDS: ANAGRELIDE 0.5 MG CAP PO SCH (11:42)
[2018-10-22] MEDS: TAMSULOSIN 0.4 MG CAP.ER.24H PO SCH (11:42)
[2018-10-22] MEDS: ALLOPURINOL 300 MG TAB PO SCH (11:43)
[2018-10-22] MEDS ORDERED: LISINOPRIL 10 MG TAB PO SCH (12:00)
--- NOTE | 2018-10-22 12:09 | P.PN ---
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 The patient follows in the office with Dr. Carmichael. We have been asked to see him in consultation secondary to hypertension. He states he was at home when checking his blood pressure and his blood pressures were elevated over 200 systolic prompted him to come to the emergency room for evaluation. On arrival blood pressure was 200/88 and 185/92. He states prior to arrival he had not taken any of his antihypertensives. Blood pressures have been somewhat better controlled since admission but remained high with a blood pressure of 170s this morning. He is currently on nadolol 40 mg daily, lisinopril 10 mg daily and Procardia 90 mg daily. Upon examination, patient is resting comfortably in bed. He denies complaints of shortness of breath, chest discomfort, palpitations, edema, lightheadedness, dizziness, or syncope. Objective - Vital Signs Vital signs: Vital Signs Temp 98.0 F 10/22/18 06:16 Pulse 69 10/22/18 06:16 Resp 16 10/22/18 08:00 BP 170/69 10/22/18 06:16 Pulse Ox 95 10/22/18 06:16 Intake & Output 10/21/18 10/22/18 10/22/18 18:59 06:59 18:59 Intake Total 240 Balance 240 Intake: Oral 240 Other: Voiding Method Toilet # Voids 1 2 - Exam PHYSICAL EXAMINATION: HEENT: Head is atraumatic, normocephalic. Pupils equal, round. Neck is supple. There is no elevated jugular venous pressure. HEART EXAMINATION: Heart sounds regular, S1 and S2 with a systolic ejection murmur at the base. CHEST EXAMINATION: Lungs are clear to auscultation and precussion. No chest wall tenderness is noted on palpation or with deep breathing. ABDOMEN: Soft, nontender. Bowel sounds are heard. No organomegaly noted. EXTREMITIES: 2+ peripheral pulses with no evidence of peripheral edema and no calf tenderness noted. NEUROLOGIC patient is awake, alert and oriented x3. . 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 We will add hydralazine 25 mg by mouth twice a day. Patient will monitor his blood pressure at home and follow-up with Dr. Rico in the office. [employer] note has been reviewed, I agree with a documented findings and plan of care. Patient was seen and examined.
[2018-10-22] MEDS ORDERED: hydrALAZINE HCL 25 MG TAB PO SCH (12:15)
[2018-10-22 13:36] VITALS: BP 142/66; PULSE 63; TEMP 97.1
--- NOTE | 2018-10-22 15:46 | P.DS ---
Providers Date of admission: 10/21/18 15:12 Attending physician: Teresa Rey Consults: 10/21/18 00:18 Consult Physician Routine Consulting Provider: Curtis Soto Consult Reason/Comments: HTN Do you want consulting provider notified?: Yes, Notify in am Primary care physician: Halie Ruffin [facility] Course: year-old male was admitted because of elevated blood pressures patient blood pressure today is 168 with 69 cardiology evaluated the patient and the they started the patient on nodolol and bisiprolol was discontinued patient need to be in dose was increased as well. All this is appropriate because the patient blood pressures were consistently elevated since last night. I wanted to discharge the patient but the cardiology is recommending to monitor the patient 1 more night. 10/22/2018 Patient the blood pressure is fairly well controlled at this time will continue with the present medications and will be discharged today. PHYSICAL EXAMINATION: GENERAL: The patient is alert and oriented x3, not in any acute distress. Well developed, well nourished. HEENT: Pupils are round and equally reacting to light. EOMI. No scleral icterus. No conjunctival pallor. Normocephalic, atraumatic. No pharyngeal erythema. No thyromegaly. CARDIOVASCULAR: S1 and S2 present. No murmurs, rubs, or gallops. PULMONARY: Chest is clear to auscultation, no wheezing or crackles. ABDOMEN: Soft, nontender, nondistended, normoactive bowel sounds. No palpable organomegaly. MUSCULOSKELETAL: No joint swelling or deformity. EXTREMITIES: No cyanosis, clubbing, or pedal edema. NEUROLOGICAL: Gross neurological examination did not reveal any focal deficits. SKIN: No rashes. Please refer to my dictation of progress note from yesterday for further details Patient Condition at Discharge: Good Plan - Discharge Summary New Discharge Prescriptions: New Nadolol [Corgard] 40 mg PO DAILY #30 tab NIFEdipine XL [Procardia XL] 90 mg PO DAILY #30 tab.er.24 Continue Tamsulosin HCl [Flomax] 0.8 mg PO DAILY@1200 Sodium Bicarbonate Tab 1,300 mg PO BID Multivitamins, Thera [Multivitamin (formulary)] 1 tab PO BID@1200,1800 Aspirin 81 mg PO DAILY Allopurinol [Zyloprim] 150 mg PO PC-LUNCH Anagrelide HCl [Agrylin] 1 mg PO BID@1200,1500 Ascorbic Acid [Vitamin C] 500 mg PO W/SUPPER Furosemide [Lasix] 40 mg PO DAILY Lisinopril [Zestril] 10 mg PO DAILY@1200 Discontinued Bisoprolol Fumarate [Zebeta] 10 mg PO DAILY NIFEdipine XL [Procardia Xl] 60 mg PO HS Discharge Medication List Sodium Bicarbonate Tab 1,300 mg PO BID 05/24/14 [History] Tamsulosin HCl [Flomax] 0.8 mg PO DAILY@1200 05/24/14 [History] Allopurinol [Zyloprim] 150 mg PO PC-LUNCH 02/05/17 [History] Anagrelide HCl [Agrylin] 1 mg PO BID@1200,1500 02/05/17 [History] Aspirin 81 mg PO DAILY 02/05/17 [History] Multivitamins, Thera [Multivitamin (formulary)] 1 tab PO BID@1200,1800 02/05/17 [History] Ascorbic Acid [Vitamin C] 500 mg PO W/SUPPER 10/20/18 [History] Furosemide [Lasix] 40 mg PO DAILY 10/20/18 [History] Lisinopril [Zestril] 10 mg PO DAILY@1200 10/20/18 [History] NIFEdipine XL [Procardia XL] 90 mg PO DAILY #30 tab.er.24 10/21/18 [Rx] Nadolol [Corgard] 40 mg PO DAILY #30 tab 10/21/18 [Rx] Follow up Appointment(s)/Referral(s): Hussain Carmichael MD [Family Provider] - 11/02/18 3:45 pm Halie Ruffin MD [Primary Care Provider] - 11/03/18 1:45 pm Patient Instructions/Handouts: Hypertension (DC) Activity/Diet/Wound Care/Special Instructions: If your blood pressure is high you make take an extra dose of lisinopril daily. Please follow-up with primary care as soon as possible for medication review and possible adjustment. Please return here to the emergency Department if you're having any worsening symptoms. Discharge Disposition: HOME SELF-CARE
--- NOTE | 2018-10-23 10:04 | CDI ---
Documentation Clarification Form Date: 10/23/18 From: India Zambrano Phone: If questions call Sonal Mercado @ [phone], Hours-8:30 am & 5 pm Amada Piña Admit Date: 10/21/2018 3:12:00 PM Patient Name: Shine Montesinos Visit Number: [id number] Discharge Date: 10/22/2018 1:59:00 PM ATTENTION: The Clinical Documentation Specialists (CDI) and [employer] Coding Staff appreciate your assistance in clarifying documentation. Please respond to the clarification below the line at the bottom and electronically sign. The CDI & [employer] Coding staff will review the response and follow-up if needed. Please note: Queries are made part of the Legal Health Record. If you have any questions, please contact the author of this message via ITS. Dr. Junior Rand Elevated blood pressure, accelerated hypertension and uncontrolled hypertension are documented in the H&P, ED note, PNs and DS. History/Risk Factors: HTN w CKD stage IV and chronic diastolic CHF, regurgitation of aortic, mitral and tricuspid valve BP on adm:200/88 BP on adm right: 204/79 Radiology findings: cardiomegaly wo decompensated CHF Treatment: Clonidine 0.2 mg stat, Apresoline 10 mg IVP, Vasotec 1.25 mg IVP, Consults: cardiology In your professional opinion, can you please clarify uncontrolled hypertension? Emergency Urgency With cardiorenal With renal disease Other (please specify in the medical record) Clinically unable to further specify Unknown Urgency MTDD
== END 2018-10-22 13:59 | disposition home or self-care (01) | DRG 305 ==
LOC: EC 09:28 → 1SOBS 15:28 → OBSVTOIN 10-21 15:12 → 4MS4W 10-21 17:45
PROVIDERS: ADMIT Hospitalist; ATTEND Hospitalist
DX: I16.0 Hypertensive urgency (principal); N18.4 Chronic kidney disease, stage 4 (severe); I50.32 Chronic diastolic (congestive) heart failure; I13.0 Hypertensive heart and chronic kidney disease with heart failure and stage 1 through stage 4 chronic kidney disease, or unspecified chronic kidney disease; I27.20 Pulmonary hypertension, unspecified; I08.3 Combined rheumatic disorders of mitral, aortic and tricuspid valves; D63.1 Anemia in chronic kidney disease; C61 Malignant neoplasm of prostate; I45.10 Unspecified right bundle-branch block; I44.0 Atrioventricular block, first degree; I73.9 Peripheral vascular disease, unspecified; Z79.82 Long term (current) use of aspirin; Z79.899 Other long term (current) drug therapy; Z91.041 Radiographic dye allergy status; Z98.890 Other specified postprocedural states; Z82.49 Family history of ischemic heart disease and other diseases of the circulatory system; Z80.51 Family history of malignant neoplasm of kidney
CPT/HCPCS: 36415; 71045; 80048; 80053; 81001; 85025; 85027; 93005; 93306; 96361; 96374; 96375; 96376; 99285

== ENCOUNTER → 2020-02-01 | Outpatient (CLI) | payer MEDICARE ==
--- NOTE | 2020-02-01 10:34 | MM ---
Reason for exam: clinical finding. Physical Findings: Nurse Summary: 1.5cm nodule in the right breast at 12 o'clock (nurse dw). MG 3D Diag Mammo W/Cad RIAZ Bilateral CC and MLO view(s) were taken. The breast tissue is almost entirely fat. Focal asymmetry right subareolar, corresponding to ultrasound. These results were verbally communicated with the patient and result sheet given to the patient on 02/01/20. ASSESSMENT: Suspicious, BI-RAD 4 RECOMMENDATION: Surgical consultation and ultrasound core biopsy of the right breast. Called Dr. Hennessy's office with mammographic findings. PRELIMINARY REPORT CALLED AND FAXED TO DR. HENNESSY ON 02/01/20.
--- NOTE | 2020-02-01 10:35 | USB ---
Reason for exam: clinical finding. Physical Findings: Nurse Summary: 1.5cm nodule in the right breast at 12 o'clock (nurse dw). US Breast RT Right complete breast ultrasound includes all four quadrants, the retroareolar region and axilla. Finding demonstrates a 2.1 x 0.6 x 2.3cm irregular, hypoechoic lesion at posterior nipple BB. These results were verbally communicated with the patient and result sheet given to the patient on 02/01/20. ASSESSMENT: Suspicious, BI-RAD 4 RECOMMENDATION: Ultrasound core biopsy of the right breast. Called Dr. Hennessy's office with mammographic findings. PRELIMINARY REPORT CALLED AND FAXED TO DR. HENNESSY ON 02/01/20.
== END | disposition home or self-care (01) ==
LOC: RADMAMWWP 08:12
PROVIDERS: ATTEND Internal Medicine Hematology & Oncology
DX: N63.10 Unspecified lump in the right breast, unspecified quadrant (principal); N63.20 Unspecified lump in the left breast, unspecified quadrant
CPT/HCPCS: 77066; 76641; G0279; 77062

== ENCOUNTER → 2020-02-28 | Day surgery (SDC) | payer MEDICARE ==
[2020-02-28 09:53] VITALS: RESP 16
[2020-02-28 11:25] VITALS: BP 166/65; PULSE 50; TEMP 97.5
--- NOTE | 2020-02-28 14:27 | USB ---
EXAMINATION TYPE: US biopsy breast VAD RT DATE OF EXAM: 02/28/2020 CLINICAL HISTORY: 84-year-old male N63.0 Breast mass R92.8 Abnormal mammogram. TECHNIQUE: Ultrasound guided core biopsy of subareolar right breast. COMPARISON: 02/01/2020 FINDINGS: The procedure of ultrasound guided core biopsy was explained to the patient. Benefits, alternatives, and risks were discussed. An informed consent was then obtained. The patient was placed in supine positioning for imaging and for the procedure. The overlying skin was prepped and draped in usual sterile fashion. Lidocaine was used as anesthetic into the skin followed by lidocaine/epinephrine mixture into the subcutaneous tissue and into the area of concern in the subareolar right breast. Under ultrasound guidance, a 13-gauge vacuum-assisted mammotome Elite biopsy gun device was used to obtain 6 core samples. No clip was placed as benign gynecomastia is suspected. The patient tolerated the procedure well without any immediate complication. The patient was kept in the radiology department for short stay after the procedure and then discharged home in stable condition. IMPRESSION: Successful, uncomplicated ultrasound guided core biopsy of area of concern in the subareolar right breast, suspected gynecomastia. No clip placed. Full pathology results to follow. Pathology Results: Benign RIGHT BREAST, ULTRASOUND GUIDED CORE BIOPSY: Gynecomastia. Recommendation Manage on a clinical basis. CHIDID
== END ==
LOC: RADUSWWP 09:38
PROVIDERS: ATTEND Internal Medicine Hematology & Oncology
DX: N62 Hypertrophy of breast (principal); R92.8 Other abnormal and inconclusive findings on diagnostic imaging of breast
CPT/HCPCS: 88305; 19083; J2001

== ENCOUNTER → 2020-07-25 | Outpatient (CLI) | payer MEDICARE ==
--- NOTE | 2020-07-28 08:13 | BD ---
EXAMINATION TYPE: Axial Bone Density DATE OF EXAM: 07/25/2020 COMPARISON: NONE CLINICAL HISTORY: Height: 69 Weight: 158.7 FRAX RISK QUESTIONS: Alcohol (3 or more units per day): no Family History (Parent hip fracture): no Glucocorticoids (More than 3mos): no (Ex: prednisone, prednisolone, methylprednisolone, dexamethasone, and hydrocortisone). History of Fracture in Adulthood: no Secondary Osteoporosis: 1. Type 1 Diabetes: no 2. Hyperthyroidism: no 3. Menopause before 45: N/A 4. Malnutrition: no 5. Chronic liver disease: no Rheumatoid Arthritis: no Current Tobacco Use: no RISK FACTORS HISTORY OF: Surgery to Spine/Hip(right/left)/Wrist (right/left): no Family History of Osteoporosis: no Active: yes Diet low in dairy products/other sources of calcium: yes Lost more than 2 inches in height since high school: no Adrenal Insufficiency: MEDICATIONS: aspirin, procardia, lisinopril, flomax, agulin Additional History: stage 4 kidney failure EXAM MEASUREMENTS: Bone mineral densitometry was performed using the [employer] System. Bone mineral density as measured about the Lumbar spine is: ----- L1-L4(G/cm2): 1.643 T Score Values are as follows: ----- L2: 4.7 ----- L3: 5.9 ----- L4: 2.8 ----- L1-L4: 3.9 Bone mineral density : BASELINE Bone mineral density about the R hip (g/cm2): 0.888 Bone mineral density about the L hip (g/cm2): 0.936 T Score values are as follows: -----R Neck: -1.1 -----L Neck: -0.7 -----R Total: -0.3 -----L Total: -0.4 Bone mineral density : BASELINE IMPRESSION: Osteopenia (T Score between -2.5 and -1). There is slightly increased risk of fracture and the patient may be considered for treatment. Re-Screen 2-5 years. NOTE: T-SCORE=SD OF THE YOUNG ADULT MEAN.
== END ==
LOC: RADBDWWP 14:14
PROVIDERS: ATTEND Internal Medicine
DX: M85.851 Other specified disorders of bone density and structure, right thigh (principal)
CPT/HCPCS: 77080

== ENCOUNTER → 2020-08-24 | Outpatient (CLI) | payer MEDICARE ==
[2020-08-24 22:19] LABS: African American GFR (CKD) 23.1 (60.0-200.0); Anion Gap 8.3 mmol/L (4.00-12.00); BUN/Creat Ratio 29.29 Ratio (12.00-20.00); Calcium 9.3 mg/dL (8.7-10.3); Carbon Dioxide 22.7 mmol/L (21.6-31.8)
== END | disposition home or self-care (01) ==
LOC: LABWHC1 10:26
PROVIDERS: ATTEND Internal Medicine
DX: N18.4 Chronic kidney disease, stage 4 (severe) (principal)
CPT/HCPCS: 36415; 80048

== ENCOUNTER → 2020-09-20 | Outpatient (CLI) | payer MEDICARE ==
[2020-09-20 22:49] LABS: African American GFR (CKD) 21.3 (60.0-200.0); Anion Gap 11.3 mmol/L (4.00-12.00); BUN/Creat Ratio 27.33 Ratio (12.00-20.00); Calcium 8.8 mg/dL (8.7-10.3); Carbon Dioxide 23.7 mmol/L (21.6-31.8); Non-African American GFR(CKD) 18.4 (60.0-200.0); Potassium 4.7 mmol/L (3.5-5.5)
== END | disposition home or self-care (01) ==
LOC: LABWHC1 14:11
PROVIDERS: ATTEND Internal Medicine Nephrology
DX: N18.4 Chronic kidney disease, stage 4 (severe) (principal)
CPT/HCPCS: 36415; 80048

== ENCOUNTER 2020-09-25 11:14 | Inpatient (IN) | payer MEDICARE ==
[2020-09-25 12:10] LABS: Anisocytosis Slight; Basophils # (A) 0.2 k/uL (0-0.2); Basophils % (A) 2 %; Eosinophils # (A) 0.2 k/uL (0-0.7); Eosinophils % (A) 3 %; HCT 36.1 % (39.0-53.0); HGB 10.9 gm/dL (13.0-17.5); Hypochromasia Moderate; Lymphocytes # (A) 0.8 k/uL (1.0-4.8); Lymphocytes % (A) 9 %; MCH 27.5 pg (25.0-35.0); MCHC 30.2 g/dL (31.0-37.0); MCV 91.2 fL (80.0-100.0); Mean Platelet Volume 9.4; Monocytes # (A) 0.6 k/uL (0-1.0); Monocytes % (A) 7 %; Neutrophils # (A) 6.3 k/uL (1.3-7.7); Neutrophils % (A) 76 %; Platelet Count 596 k/uL (150-450); RBC 3.96 m/uL (4.30-5.90); WBC 8.4 k/uL (3.8-10.6)
[2020-09-25 12:20] LABS: INR 0.9 (<1.2); Partial Thromboplastin Time 23.9 sec (22.0-30.0); Prothrombin Time 10.1 sec (9.0-12.0)
[2020-09-25 12:26] LABS: Calcium 9.9 mg/dL (8.4-10.2); Magnesium 2.4 mg/dL (1.6-2.3); Potassium 5.7 mmol/L (3.5-5.1); Total Bilirubin 0.6 mg/dL (0.2-1.3); Total Protein 6.5 g/dL (6.3-8.2)
--- NOTE | 2020-09-25 12:39 | XR ---
EXAMINATION TYPE: XR chest 2V DATE OF EXAM: 09/25/2020 COMPARISON: Chest x-ray October 20, 2018 HISTORY: Dyspnea. TECHNIQUE: Frontal and lateral views of the chest are obtained. FINDINGS: There are new multifocal opacities greatest in the lower lungs. Small to tiny bilateral pl eural effusions. The cardiac silhouette size is enlarged. The osseous structures are intact. IMPRESSION: Findings consistent with CHF exacerbation, cardiomegaly with small to tiny bilateral ple ural effusions and interstitial edema. Cannot rule out underlying areas of acute infiltrate. Correlat e clinically.
--- NOTE | 2020-09-25 12:43 | ED ---
General Adult HPI - General Chief complaint: Shortness of Breath Stated complaint: SOB Time Seen by Provider: 09/25/20 11:15 Source: patient, EMS Mode of arrival: EMS Limitations: no limitations - History of Present Illness Initial comments: 84-year-old male with a past medical history of hypertension, anemia, chronic renal disease, heart failure presents to the emergency room for a chief complaint of shortness of breath. Patient reports that for the past week or so he has felt a little congested at home. States that when he lies flat he feels short of breath and then when he sits up feels a bit better. States that he went to urgent care today and they were concerned about his oxygen level as it was low. He was then transferred to the emergency room. Patient does admit he has been having swelling in his legs. He states it has worsened in the past while however been stable for about the past week. Patient has no other complaints at this time including chest pain, abdominal pain, nausea or vomiting, headache, or visual changes. - Related Data Home Medications Medication Instructions Recorded Confirmed Sodium Bicarbonate Tab 1,300 mg PO TID 05/24/14 09/25/20 Tamsulosin HCl [Flomax] 0.8 mg PO DAILY@1200 05/24/14 09/25/20 Aspirin 81 mg PO DAILY 02/05/17 09/25/20 allopurinoL [Zyloprim] 150 mg PO PC-LUNCH 02/05/17 09/25/20 Furosemide [Lasix] 40 mg PO BID@0800,1200 10/20/18 09/25/20 Agrylin 1mg 1 mg PO BID 09/25/20 09/25/20 Calcium Carbonate [Calcium] 600 mg PO BID@1200,1700 09/25/20 09/25/20 Epoetin Abraham-Epbx [Retacrit] 20,000 unit IJ WE 09/25/20 09/25/20 Ergocalciferol [Vitamin D2 (1250 1,250 mcg PO WE 09/25/20 09/25/20 Mcg = 03202 Iu)] NIFEdipine XL [Procardia Xl] 60 mg PO BID 09/25/20 09/25/20 Nadolol [Corgard] 20 mg PO HS 09/25/20 09/25/20 Nadolol [Corgard] 40 mg PO DAILY 09/25/20 09/25/20 Allergies Allergy/AdvReac Type Severity Reaction Status Date / Time Iodinated Contrast Media AdvReac KIDNEY Verified 09/25/20 11:53 [Iodinated Contrast- Oral FAILURE and IV Dye] Review of Systems ROS Statement: Those systems with pertinent positive or pertinent negative responses have been documented in the HPI. ROS Other: All systems not noted in ROS Statement are negative. 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 STOMACH CRAMPS OFF & ON- DIARRHEA LASTED 3-4 WEEKS IN 2013. High platelets. Gout, hypoxemia, high creatine History of Any Multi-Drug Resistant Organisms: None Reported Past Surgical History: Tonsillectomy Additional Past Surgical History / Comment(s): COLONOSCOPY 2004 Past Anesthesia/Blood Transfusion Reactions: No Reported Reaction Past Psychological History: No Psychological Hx Reported Smoking Status: Never smoker Past Alcohol Use History: None Reported Past Drug Use History: None Reported - Past Family History Father Family Medical History: Cancer, Hypertension, Renal Disease Additional Family Medical History / Comment(s): Kidney Cancer General Exam Limitations: no limitations General appearance: alert, in no apparent distress Head exam: Present: atraumatic, normocephalic, normal inspection Eye exam: Present: normal appearance, PERRL, EOMI. Absent: scleral icterus, conjunctival injection, periorbital swelling ENT exam: Present: normal exam, mucous membranes moist Neck exam: Present: normal inspection, full ROM. Absent: tenderness, meningismus, lymphadenopathy Respiratory exam: Present: rales. Absent: respiratory distress, wheezes, rhonchi, stridor Cardiovascular Exam: Present: regular rate, normal rhythm, normal heart sounds. Absent: systolic murmur, diastolic murmur, rubs, gallop, clicks GI/Abdominal exam: Present: soft, normal bowel sounds. Absent: distended, tenderness, guarding, rebound, rigid Extremities exam: Present: pedal edema (2+ pitting edema bilateral lower extremities) Course Vital Signs 09/25/20 09/25/20 11:15 13:14 Temperature 96.9 F L Pulse Rate 60 63 Respiratory 18 20 Rate Blood Pressure 162/68 171/82 O2 Sat by Pulse 93 L 91 L Oximetry EKG Findings - EKG Comments: EKG Findings:: Sinus rhythm, ventricular rate 64, CA interval 192, QTC 513 Medical Decision Making - Medical Decision Making Vitals are stable. CBC unremarkable. CMP does show evidence of chronic kidney disease. Potassium 5.7, no EKG changes. BNP 61397 with finding of failure on chest x-ray. At this time patient will be admitted for IV Lasix. Case discussed with Dr. Rand requests 80 mg Lasix TID - Lab Data Result diagrams: 09/25/20 12:00 09/25/20 12:00 Lab Results 09/25/20 09/25/20 09/25/20 Range/Units 12:00 12:00 12:00 WBC 8.4 (3.8-10.6) k/uL RBC 3.96 L (4.30-5.90) m/uL Hgb 10.9 L (13.0-17.5) gm/dL Hct 36.1 L (39.0-53.0) % MCV 91.2 (80.0-100.0) fL MCH 27.5 (25.0-35.0) pg MCHC 30.2 L (31.0-37.0) g/dL RDW 18.0 H (11.5-15.5) % Plt Count 596 H (150-450) k/uL MPV 9.4 Neutrophils % 76 % Lymphocytes % 9 % Monocytes % 7 % Eosinophils % 3 % Basophils % 2 % Neutrophils # 6.3 (1.3-7.7) k/uL Lymphocytes # 0.8 L (1.0-4.8) k/uL Monocytes # 0.6 (0-1.0) k/uL Eosinophils # 0.2 (0-0.7) k/uL Basophils # 0.2 (0-0.2) k/uL Hypochromasia Moderate Anisocytosis Slight PT 10.1 (9.0-12.0) sec INR 0.9 (<1.2) APTT 23.9 (22.0-30.0) sec Sodium 143 (137-145) mmol/L Potassium 5.7 H (3.5-5.1) mmol/L Chloride 109 H (98-107) mmol/L Carbon Dioxide 22 (22-30) mmol/L Anion Gap 12 mmol/L BUN 104 H* (9-20) mg/dL Creatinine 3.70 H (0.66-1.25) mg/dL Est GFR (CKD-EPI)AfAm 16 (>60 ml/min/1.73 sqM) Est GFR (CKD-EPI)NonAf 14 (>60 ml/min/1.73 sqM) Glucose 120 H (74-99) mg/dL Calcium 9.9 (8.4-10.2) mg/dL Magnesium 2.4 H (1.6-2.3) mg/dL Total Bilirubin 0.6 (0.2-1.3) mg/dL AST 16 L (17-59) U/L ALT 9 (4-49) U/L Alkaline Phosphatase 49 (38-126) U/L Troponin I (0.000-0.034) ng/mL NT-Pro-B Natriuret Pep pg/mL Total Protein 6.5 (6.3-8.2) g/dL Albumin 4.0 (3.5-5.0) g/dL Coronavirus (PCR) (Not Detectd) 09/25/20 09/25/20 09/25/20 Range/Units 12:00 12:00 12:00 WBC (3.8-10.6) k/uL RBC (4.30-5.90) m/uL Hgb (13.0-17.5) gm/dL Hct (39.0-53.0) % MCV (80.0-100.0) fL MCH (25.0-35.0) pg MCHC (31.0-37.0) g/dL RDW (11.5-15.5) % Plt Count (150-450) k/uL MPV Neutrophils % % Lymphocytes % % Monocytes % % Eosinophils % % Basophils % % Neutrophils # (1.3-7.7) k/uL Lymphocytes # (1.0-4.8) k/uL Monocytes # (0-1.0) k/uL Eosinophils # (0-0.7) k/uL Basophils # (0-0.2) k/uL Hypochromasia Anisocytosis PT (9.0-12.0) sec INR (<1.2) APTT (22.0-30.0) sec Sodium (137-145) mmol/L Potassium (3.5-5.1) mmol/L Chloride (98-107) mmol/L Carbon Dioxide (22-30) mmol/L Anion Gap mmol/L BUN (9-20) mg/dL Creatinine (0.66-1.25) mg/dL Est GFR (CKD-EPI)AfAm (>60 ml/min/1.73 sqM) Est GFR (CKD-EPI)NonAf (>60 ml/min/1.73 sqM) Glucose (74-99) mg/dL Calcium (8.4-10.2) mg/dL Magnesium (1.6-2.3) mg/dL Total Bilirubin (0.2-1.3) mg/dL AST (17-59) U/L ALT (4-49) U/L Alkaline Phosphatase (38-126) U/L Troponin I 0.020 (0.000-0.034) ng/mL NT-Pro-B Natriuret Pep 56508 pg/mL Total Protein (6.3-8.2) g/dL Albumin (3.5-5.0) g/dL Coronavirus (PCR) Not Detected (Not Detectd) Disposition Clinical Impression: Heart failure, Hyperkalemia, Shortness of breath, Azotemia Disposition: ADMITTED IP TO THIS HOSP Is patient prescribed a controlled substance at d/c from ED?: No Referrals: Halie Ruffin MD [Primary Care Provider] - 1-2 days Time of Disposition: 13:20
[2020-09-25] MEDS ORDERED: FUROSEMIDE 80 MG TAB PO SCH (13:23)
[2020-09-25] MEDS: allopurinoL 300 MG TAB PO SCH (13:55)
[2020-09-25] MEDS: SODIUM BICARBONATE TAB 650 MG TAB PO SCH ×2 (15:16→20:01)
--- NOTE | 2020-09-25 17:09 | P.HPIM ---
History of Present Illness 84-year-old male came in with comments of shortness of breath or which started about couple days ago feels congested has been waking up for about a week at nighttime. Denied any clear history of orthopnea paroxysmal nocturnal dyspnea in spite of above-mentioned history. Patient doesn't have any history of COPD patient appears to have had chronic diastolic dysfunction in the past. Patient does have pedal edema does have elevated BNP and chest x-ray is consistent with pulmonary edema. Patient doesn't use any oxygen at home presently on 3 L of of oxygen. Patient usually uses 40 twice a day of the oral Lasix. Patient has ch ronic kidney disease stage IV with baseline creatinine around 3. Patient does have elevated potassium of 5.7 which will be monitored troponin is negative EKG sinus rhythm with frequent PVCs with right bundle branch block and left anterior fascicular block. Review of Systems REVIEW OF SYSTEMS: CONSTITUTIONAL: No fever, no malaise, no fatigue. HEENT: No recent visual problems or hearing problems. Denied any sore throat. CARDIOVASCULAR: No chest pain, orthopnea, PND, no palpitations, no syncope. PULMONARY: No shortness of breath, no cough, no hemoptysis. GASTROINTESTINAL: No diarrhea, no nausea, no vomiting, no abdominal pain. NEUROLOGICAL: No headaches, no weakness, no numbness. HEMATOLOGICAL: Denies any bleeding or petechiae. GENITOURINARY: Denies any burning micturition, frequency, or urgency. MUSCULOSKELETAL/RHEUMATOLOGICAL: Denies any joint pain, swelling, or any muscle pain. ENDOCRINE: Denies any polyuria or polydipsia. The rest of the 14-point review of systems is negative. Past Medical History Past Medical History: Heart Failure, Hypertension, Prostate Disorder, Renal Disease Additional Past Medical History / Comment(s): Thrombocytemia/elevated platelets, CKD stage IV, anemia, BPH, gout R great toe, History of Any Multi-Drug Resistant Organisms: None Reported Past Surgical History: Tonsillectomy Additional Past Surgical History / Comment(s): BMA with biopsy, R hand index finger injury/partial amp, colonoscopy. Past Anesthesia/Blood Transfusion Reactions: No Reported Reaction Past Psychological History: No Psychological Hx Reported Additional Psychological History / Comment(s): Pt resides with his spouse. He i s independent. Smoking Status: Never smoker Past Alcohol Use History: None Reported Past Drug Use History: None Reported - Past Family History Father Family Medical History: Cancer, Hypertension, Renal Disease Additional Family Medical History / Comment(s): Kidney Cancer Mother Family Medical History: No Reported History Additional Family Medical History / Comment(s): Mother was healthy Medications and Allergies Home Medications Medication Instructions Recorded Confirmed Type Sodium Bicarbonate Tab 1,300 mg PO TID 05/24/14 09/25/20 History Tamsulosin HCl [Flomax] 0.8 mg PO DAILY@1200 05/24/14 09/25/20 History Aspirin 81 mg PO DAILY 02/05/17 09/25/20 History allopurinoL [Zyloprim] 150 mg PO PC-LUNCH 02/05/17 09/25/20 History Furosemide [Lasix] 40 mg PO BID@0800,1200 10/20/18 09/25/20 History Agrylin 1mg 1 mg PO BID 09/25/20 09/25/20 History Calcium Carbonate [Calcium] 600 mg PO BID@1200,1700 09/25/20 09/25/20 History Epoetin Abraham-Epbx [Retacrit] 20,000 unit IJ WE 09/25/20 09/25/20 History Ergocalciferol [Vitamin D2 (1250 1,250 mcg PO WE 09/25/20 09/25/20 History Mcg = 37275 Iu)] NIFEdipine XL [Procardia Xl] 60 mg PO BID 09/25/20 09/25/20 History Nadolol [Corgard] 20 mg PO HS 09/25/20 09/25/20 History Nadolol [Corgard] 40 mg PO DAILY 09/25/20 09/25/20 History Allergies Allergy/AdvReac Type Severity Reaction Status Date / Time Iodinated Contrast Media AdvReac KIDNEY Verified 09/25/20 11:53 [Iodinated Contrast- Oral FAILURE and IV Dye] Physical Exam Vitals: Vital Signs Temp Pulse Resp BP Pulse Ox 09/25/20 15:19 57 L 18 156/16 92 L 09/25/20 13:14 63 20 171/82 91 L 09/25/20 11:15 96.9 F L 60 18 162/68 93 L Intake and Output 09/25/20 09/25/20 09/25/20 06:59 14:59 22:59 Other: Weight 72.575 kg PHYSICAL EXAMINATION: GENERAL: The patient is alert and oriented x3, not in any acute distress. Well developed, well nourished. HEENT: Pupils are round and equally reacting to light. EOMI. No scleral icterus. No conjunctival pallor. Normocephalic, atraumatic. No pharyngeal erythema. No thyromegaly. CARDIOVASCULAR: S1 and S2 present. No murmurs, rubs, or gallops. PULMONARY: Chest is clear to auscultation, no wheezing or crackles. ABDOMEN: Soft, nontender, nondistended, normoactive bowel sounds. No palpable organomegaly. MUSCULOSKELETAL: No joint swelling or deformity. EXTREMITIES: No cyanosis, clubbing, bilateral pitting pedal edema NEUROLOGICAL: Gross neurological examination did not reveal any focal deficits. SKIN: No rashes. Results CBC & Chem 7: 09/25/20 12:00 09/25/20 12:00 Labs: Abnormal Lab Results - Last 24 Hours (Table) 09/25/20 09/25/20 Range/Units 12:00 12:00 RBC 3.96 L (4.30-5.90) m/uL Hgb 10.9 L (13.0-17.5) gm/dL Hct 36.1 L (39.0-53.0) % MCHC 30.2 L (31.0-37.0) g/dL RDW 18.0 H (11.5-15.5) % Plt Count 596 H (150-450) k/uL Lymphocytes # 0.8 L (1.0-4.8) k/uL Potassium 5.7 H (3.5-5.1) mmol/L Chloride 109 H (98-107) mmol/L BUN 104 H* (9-20) mg/dL Creatinine 3.70 H (0.66-1.25) mg/dL Glucose 120 H (74-99) mg/dL Magnesium 2.4 H (1.6-2.3) mg/dL AST 16 L (17-59) U/L Thrombosis Risk Factor Assmnt - Choose All That Apply Any of the Below Risk Factors Present?: Yes Each Factor Represents 1 point: Heart failure (<1month), Swollen legs (current) Other Risk Factors: Yes Each Risk Factor Represents 3 Points: Age 75 years or older Other congenital or acquired thrombophilia - If yes, enter type in comment: No Thrombosis Risk Factor Assessment Total Risk Factor Score: 5 Thrombosis Risk Factor Assessment Level: High Risk Assessment and Plan Plan: -Acute hypoxic respiratory failure: Secondary to congestive heart failure exacerbation patient probably has chronic diastolic dysfunction with acute exacerbation. Was started on 60 mg 3 times a day of Lasix closely monitor kidney function strict I's and O's. 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
[2020-09-25] MEDS: CALCIUM CARB-VIT D 500 MG-5 MCG TAB PO SCH (17:51)
[2020-09-25] MEDS: HEPARIN SODIUM,PORCINE/PF 5,000 UNIT/0.5 ML SYRINGE SQ SCH (20:01)
[2020-09-25] MEDS: ANAGRELIDE 1 MG PO SCH (20:01)
[2020-09-25] MEDS: FUROSEMIDE 20 MG TAB PO SCH (22:35)
[2020-09-25] MEDS ORDERED: amLODIPine 10 MG TAB PO SCH (23:00)
[2020-09-26] MEDS: FUROSEMIDE 20 MG TAB PO SCH (08:28)
[2020-09-26] MEDS: SODIUM BICARBONATE TAB 650 MG TAB PO SCH ×3 (08:28→20:23)
[2020-09-26] MEDS: ASPIRIN 81 MG PO SCH (08:28)
[2020-09-26] MEDS: HEPARIN SODIUM,PORCINE/PF 5,000 UNIT/0.5 ML SYRINGE SQ SCH ×2 (08:29→20:23)
[2020-09-26] MEDS: ANAGRELIDE 1 MG PO SCH ×2 (08:29→20:38)
[2020-09-26] MEDS ORDERED: FUROSEMIDE 10 MG/ML 10 ML VIAL IV SCH ×2 (09:00→21:00)
[2020-09-26 09:19] LABS: Calcium 9.8 mg/dL (8.4-10.2)
--- NOTE | 2020-09-26 10:11 | P.CRDCN ---
History of Present Illness History of present illness: HISTORY OF PRESENTING ILLNESS This is a pleasant 84-year-old male past medical history significant for peripheral vascular disease, chronic kidney disease, valvular heart disease, pulmonary hypertension and hypertension. He follows in the office with Dr. Joya. We have been asked to see in consultation for heart failure. He states for the previous 1-week he has been waking up at night feeling congested and short of breath. He has also noticed increased lower extremity swelling. He was in the office yesterday to have a routine echo performed when he left he started feeling short of breath and wheezy. He went to urgent care and was found to be hypoxic and was sent here for further evaluation. On arrival to ER his pulse ox was 93%. He denies chest pain, dizziness or palpitations. He follows regularly with a binding dyer out of town. He states he still urinates frequently but small amounts. DIAGNOSTICS EKG sinus mechanism with right bundle branch block, left anterior fascicular block and first-degree AV block with PVCs. reveals []. Telemetry tracings indicate sinus mechanism with no acute arrhythmia or significant pauses. Chest xray findings consistent with congestive heart failure, cardiomegaly with small to tiny bilateral pleural effusions and interstitial edema.. Laboratory reviewed, WBC 8.4, hemoglobin 10.9, platelets 596, sodium 144, potassium on admission 5. 7 repeat today 5.0, creatinine on admission 3. 7 repeat today 3.4, magnesium 2.4, troponin negative 1 and proBNP 10,300. Current cardiac medications include aspirin 81 mg daily, Lasix 40 mg twice a day, nifedipine 60 mg twice a day, nadolol 40 mg in the morning and 20 mg at bedtime. Most recent echocardiogram obtained October 2019 reveals preserved LV systolic function, mild to moderate aortic regurgitation, mild to moderate tricuspid regurgitation, moderate mitral regurgitation and mildly dilated aortic root at 4.1 cm. REVIEW OF SYSTEMS At the time of my exam: CONSTITUTIONAL: Denies fever or chills. CARDIOVASCULAR: Denies chest pain, shortness of breath, orthopnea, PND or palpitations. RESPIRATORY: Denies cough. GASTROINTESTINAL: Denies abdominal pain, diarrhea, constipation, nausea or vomiting. MUSCULOSKELETAL: Denies myalgias. NEUROLOGIC: Denies numbness, tingling, headacbe or weakness. ENDOCRINE: Denies fatigue, weight change, polydipsia or polyurina. GENITOURINARY: Denies burning, hematuria or urgency with micturation. HEMATOLOGIC: Denies history of anemia or bleeding. PHYSICAL EXAMINATION Blood pressure 179/67 heart rate 71 afebrile and maintaining oxygen saturation on nasal cannula. CONSTITUTIONAL: No apparent distress. HEENT: Head is normocephalic. Pupils are equal, round. Sclerae anicteric. Mucous membranes of the mouth are moist. No JVD. No carotid bruit. CHEST EXAMINATION: Bibasilar rales. No wheezes or rhonchi. No chest wall tenderness is noted on palpation or with deep breathing. HEART EXAMINATION: Regular rate and rhythm. S1, S2 heard. Systolic ejection murmur at the apex, no gallops or rub. ABDOMEN: Soft, nontender. Positive bowel sounds. EXTREMITIES: 2+ peripheral pulses, 2+ bilateral lower extremity pitting edema and no calf tenderness. NEUROLOGIC EXAMINATION: Patient is awake, alert and oriented x3. ASSESSMENT Acute on chronic diastolic heart failure Acute on chronic kidney disease Hypertension, uncontrolled Valvular heart disease PLAN Change lasix to IV. Discontinue amlodipine and initiate hydralazine 50 mg BID. Follow renal function and electrolytes in the morning. Document accurate intake and output along with daily weights. Further recommendations to follow based on clinical course. Thank you kindly for this consultation. Nurse Practitioner note has been reviewed, I agree with a documented findings and plan of care. Patient was seen and examined. Past Medical History Past Medical History: Heart Failure, Hypertension, Prostate Disorder, Renal Disease Additional Past Medical History / Comment(s): Thrombocytemia/elevated platelets, CKD stage IV, anemia, BPH, gout R great toe, History of Any Multi-Drug Resistant Organisms: None Reported Past Surgical History: Tonsillectomy Additional Past Surgical History / Comment(s): BMA with biopsy, R hand index finger injury/partial amp, colonoscopy. Past Anesthesia/Blood Transfusion Reactions: No Reported Reaction Past Psychological History: No Psychological Hx Reported Additional Psychological History / Comment(s): Pt resides with his spouse. He is independent. Smoking Status: Never smoker Past Alcohol Use History: None Reported Past Drug Use History: None Reported - Past Family History Father Family Medical History: Cancer, Hypertension, Renal Disease Additional Family Medical History / Comment(s): Kidney Cancer Mother Family Medical History: No Reported History Additional Family Medical History / Comment(s): Mother was healthy Medications and Allergies Home Medications Medication Instructions Recorded Confirmed Type Sodium Bicarbonate Tab 1,300 mg PO TID 05/24/14 09/25/20 History Tamsulosin HCl [Flomax] 0.8 mg PO DAILY@1200 05/24/14 09/25/20 History Aspirin 81 mg PO DAILY 02/05/17 09/25/20 History allopurinoL [Zyloprim] 150 mg PO PC-LUNCH 02/05/17 09/25/20 History Furosemide [Lasix] 40 mg PO BID@0800,1200 10/20/18 09/25/20 History Agrylin 1mg 1 mg PO BID 09/25/20 09/25/20 History Calcium Carbonate [Calcium] 600 mg PO BID@1200,1700 09/25/20 09/25/20 History Epoetin Abraham-Epbx [Retacrit] 20,000 unit IJ WE 09/25/20 09/25/20 History Ergocalciferol [Vitamin D2 (1250 1,250 mcg PO WE 09/25/20 09/25/20 History Mcg = 22584 Iu)] NIFEdipine XL [Procardia Xl] 60 mg PO BID 09/25/20 09/25/20 History Nadolol [Corgard] 20 mg PO HS 09/25/20 09/25/20 History Nadolol [Corgard] 40 mg PO DAILY 09/25/20 09/25/20 History Allergies Allergy/AdvReac Type Severity Reaction Status Date / Time Iodinated Contrast Media AdvReac KIDNEY Verified 09/25/20 11:53 [Iodinated Contrast- Oral FAILURE and IV Dye] Physical Exam Vitals: Vital Signs Temp Pulse Pulse Resp BP BP Pulse Ox 09/26/20 04:00 63 17 164/75 94 L 09/25/20 23:34 98.1 F 79 19 192/74 94 L 09/25/20 21:30 182/67 09/25/20 20:22 96 09/25/20 20:00 97.3 F L 69 17 185/68 93 L 09/25/20 17:51 64 17 186/74 94 L 09/25/20 15:19 57 L 18 156/16 92 L 09/25/20 13:14 63 20 171/82 91 L 09/25/20 11:15 96.9 F L 60 18 162/68 93 L Intake and Output 09/25/20 09/26/20 09/26/20 22:59 06:59 14:59 Intake Total 240 Output Total 550 600 Balance -310 -600 Intake: Oral 240 Output: Urine 550 600 Other: Voiding Method Toilet Weight 73.5 kg Results 09/25/20 12:00 09/26/20 08:14 Cardiac Enzymes 09/25/20 09/25/20 Range/Units 12:00 12:00 AST 16 L (17-59) U/L Troponin I 0.020 (0.000-0.034) ng/mL Coagulation 09/25/20 Range/Units 12:00 PT 10.1 (9.0-12.0) sec APTT 23.9 (22.0-30.0) sec CBC 09/25/20 Range/Units 12:00 WBC 8.4 (3.8-10.6) k/uL RBC 3.96 L (4.30-5.90) m/uL Hgb 10.9 L (13.0-17.5) gm/dL Hct 36.1 L (39.0-53.0) % Plt Count 596 H (150-450) k/uL Comprehensive Metabolic Panel 09/25/20 Range/Units 12:00 Sodium 143 (137-145) mmol/L Potassium 5.7 H (3.5-5.1) mmol/L Chloride 109 H (98-107) mmol/L Carbon Dioxide 22 (22-30) mmol/L BUN 104 H* (9-20) mg/dL Creatinine 3.70 H (0.66-1.25) mg/dL Glucose 120 H (74-99) mg/dL Calcium 9.9 (8.4-10.2) mg/dL AST 16 L (17-59) U/L ALT 9 (4-49) U/L Alkaline Phosphatase 49 (38-126) U/L Total Protein 6.5 (6.3-8.2) g/dL Albumin 4.0 (3.5-5.0) g/dL Current Medications Generic Name Dose Route Start Last Admin Trade Name Freq PRN Reason Stop Dose Admin Allopurinol 150 mg 09/25/20 13:30 09/25/20 13:55 Allopurinol 300 Mg Tab PO 150 mg PC-LUNCH CURTIS Administration Aspirin 81 mg 09/26/20 09:00 Aspirin 81 Mg PO DAILY [facility] Calcium Carbonate 1 each 09/25/20 17:00 09/25/20 17:51 Calcium Carb-Vit D 500 Mg-5 Mcg Tab PO Not Given BID@1200,1700 [facility] Ergocalciferol 1,250 mcg 09/27/20 09:00 Ergocalciferol 1,250 Mcg (50,000 Iu) Capsule PO WE [facility] Furosemide 60 mg 09/26/20 00:00 09/25/20 22:35 Furosemide 20 Mg Tab PO 60 mg Q8HR CURTIS Administration Heparin Sodium (Porcine) 5,000 unit 09/25/20 21:00 09/25/20 20:01 Heparin Sodium,Porcine/Pf 5,000 Unit/0.5 Ml Syringe SQ 5,000 unit Q12HR [facility]TIS Administration Nadolol 20 mg 09/25/20 21:00 09/25/20 20:01 Nadolol 20 Mg Tab PO 20 mg HS CURTIS Administration Nadolol 40 mg 09/26/20 09:00 Nadolol 20 Mg Tab PO DAILY [facility] Nifedipine 60 mg 09/25/20 21:00 09/25/20 20:01 Nifedipine Xl 60 Mg Tab.Er.24 PO 60 mg BID [facility] Administration Non-Formulary Medication 1 mg 09/25/20 21:00 09/25/20 20:01 Agrylin 1mg PO Not Given BID [facility] Sodium Bicarbonate 1,300 mg 09/25/20 16:00 09/25/20 20:01 Sodium Bicarbonate Tab 650 Mg Tab PO 1,300 mg TID [facility] Administration Tamsulosin HCl 0.8 mg 09/26/20 12:00 Tamsulosin 0.4 Mg Cap.Er.24h PO DAILY@1200 [facility] Intake and Output 09/25/20 09/26/20 09/26/20 22:59 06:59 14:59 Intake Total 240 Output Total 550 600 Balance -310 -600 Intake: Oral 240 Output: Urine 550 600 Other: Voiding Method Toilet Weight 73.5 kg 09/25/20 12:00 09/25/20 12:00
[2020-09-26] MEDS: FUROSEMIDE 10 MG/ML 10 ML VIAL IV SCH ×2 (12:19→20:23)
[2020-09-26] MEDS: hydrALAZINE HCL 50 MG TAB PO SCH ×2 (12:20→20:22)
[2020-09-26] MEDS: TAMSULOSIN 0.4 MG CAP.ER.24H PO SCH (12:23)
[2020-09-26] MEDS: allopurinoL 300 MG TAB PO SCH (12:23)
[2020-09-26] MEDS: CALCIUM CARB-VIT D 500 MG-5 MCG TAB PO SCH ×2 (12:24→16:34)
--- NOTE | 2020-09-26 14:30 | P.PN ---
Subjective 84-year-old male came in with comments of shortness of breath or which started about couple days ago feels congested has been waking up for about a week at nighttime. Denied any clear history of orthopnea paroxysmal nocturnal dyspnea in spite of above-mentioned history. Patient doesn't have any history of COPD patient appears to have had chronic diastolic dysfunction in the past. Patient does have pedal edema does have elevated BNP and chest x-ray is consistent with pulmonary edema. Patient doesn't use any oxygen at home presently on 3 L of of oxygen. Patient usually uses 40 twice a day of the oral Lasix. Patient has chronic kidney disease stage IV with baseline creatinine around 3. Patient does have elevated potassium of 5.7 which will be monitored troponin is negative EKG sinus rhythm with frequent PVCs with right bundle branch block and left anterior fascicular block. 09/26/2020 Patient the pedal edema. Straight improved compared to yesterday. Patient fairly feels the same as yesterday. Unable to clearly assess the urine output because of his incontinence. Patient remains on IV Lasix was evaluated by cardiology, there is marginal improvement in serum creatinine from 3.7-3.49. Patient remained short of breath Constitutional: Denied any fatigue denied any fever. Cardio vascular: denied any chest pain, palpitations Gastrointestinal denied any nausea vomiting Pulmonary: As mentioned in HPI Neurologic denied any new focal deficits All inpatient medications were reviewed and appropriate changes in these medicat ions as dictated in the interval history and assessment and plan. Objective - Vital Signs Vital signs: Vital Signs Temp 98.3 F 09/26/20 12:00 Pulse 70 09/26/20 12:00 Resp 16 09/26/20 12:00 BP 183/72 09/26/20 12:00 Pulse Ox 92 L 09/26/20 08:00 Intake & Output 09/25/20 09/26/20 09/26/20 18:59 06:59 18:59 Intake Total 240 718 Output Total 1150 Balance 240 -1150 718 Weight 72.575 kg 73.5 kg 73.5 kg Intake: Oral 240 718 Output: Urine 1150 Other: Voiding Method Toilet Toilet # Voids 1 2 - Exam PHYSICAL EXAMINATION: GENERAL: The patient is alert and oriented x3, not in any acute distress. Well developed, well nourished. HEENT: Pupils are round and equally reacting to light. EOMI. No scleral icterus. No conjunctival pallor. Normocephalic, atraumatic. No pharyngeal erythema. No thyromegaly. CARDIOVASCULAR: S1 and S2 present. No murmurs, rubs, or gallops. PULMONARY: Chest is clear to auscultation, no wheezing or crackles. ABDOMEN: Soft, nontender, nondistended, normoactive bowel sounds. No palpable organomegaly. MUSCULOSKELETAL: No joint swelling or deformity. EXTREMITIES: No cyanosis, clubbing, bilateral pitting pedal edema, which improved compared to yesterday NEUROLOGICAL: Gross neurological examination did not reveal any focal deficits. SKIN: No rashes. - Labs CBC & Chem 7: 09/25/20 12:00 09/26/20 08:14 Labs: Abnormal Lab Results - Last 24 Hours (Table) 09/26/20 Range/Units 08:14 Chloride 108 H (98-107) mmol/L BUN 101 H* (9-20) mg/dL Creatinine 3.49 H (0.66-1.25) mg/dL Glucose 143 H (74-99) mg/dL Assessment and Plan Plan: -Acute hypoxic respiratory failure: Secondary to congestive heart failure exacerbation patient probably has chronic diastolic dysfunction with acute exacerbation. 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
[2020-09-27 08:27] LABS: Calcium 9.1 mg/dL (8.4-10.2); Potassium 5.1 mmol/L (3.5-5.1)
[2020-09-27] MEDS: HEPARIN SODIUM,PORCINE/PF 5,000 UNIT/0.5 ML SYRINGE SQ SCH ×2 (08:40→20:20)
[2020-09-27] MEDS: CALCIUM CARB-VIT D 500 MG-5 MCG TAB PO SCH ×2 (08:41→16:36)
[2020-09-27] MEDS: FUROSEMIDE 10 MG/ML 10 ML VIAL IV SCH ×2 (08:41→20:21)
[2020-09-27] MEDS: TAMSULOSIN 0.4 MG CAP.ER.24H PO SCH (08:42)
[2020-09-27] MEDS: hydrALAZINE HCL 50 MG TAB PO SCH ×2 (08:42→20:20)
[2020-09-27] MEDS: SODIUM BICARBONATE TAB 650 MG TAB PO SCH ×3 (08:42→20:20)
[2020-09-27] MEDS: ASPIRIN 81 MG PO SCH (08:42)
[2020-09-27] MEDS: ERGOCALCIFEROL 1,250 MCG (50,000 IU) CAPSULE PO SCH (08:43)
[2020-09-27] MEDS: ANAGRELIDE 1 MG PO SCH ×3 (08:44→20:20)
[2020-09-27] MEDS ORDERED: IPRATROPIUM-ALBUTEROL 3 ML NEB INHALATION PRN (10:34)
--- NOTE | 2020-09-27 11:57 | XR ---
EXAMINATION TYPE: XR chest 1V portable DATE OF EXAM: 09/27/2020 COMPARISON: Chest x-ray 09/25/2020 HISTORY: This of breath TECHNIQUE: Single frontal view of the chest is obtained. FINDINGS: Cardiac mediastinal silhouette is stable, heart is likely at the upper limit of normal for size. There is interval obscured left hemidiaphragm, blunting of the left costophrenic angle noted i n right. Interstitium is increased. Perihilar vascular indistinctness may be slightly improved althou gh there are differences in technique, possible slight improvement in aeration. There is no evident p neumothorax. There are overlying leads. Degenerative disc changes are present in the visualized spine . IMPRESSION: Findings consistent with congestive heart failure. Suspect basilar effusions. There may be some slight interval improvement in patient's biopsy status.
--- NOTE | 2020-09-27 12:11 | P.PN ---
Subjective HISTORY OF PRESENTING ILLNESS This is a pleasant 84-year-old male past medical history significant for peripheral vascular disease, chronic kidney disease, valvular heart disease, pulmonary hypertension and hypertension. He follows in the office with Dr. Joya. We have been asked to see in consultation for heart failure. He states for the previous 1-week he has been waking up at night feeling congested and short of breath. He has also noticed increased lower extremity swelling. He was in the office yesterday to have a routine echo performed when he left he started feeling short of breath and wheezy. He went to urgent care and was found to be hypoxic and was sent here for further evaluation. On arrival to ER his pulse ox was 93%. He denies chest pain, dizziness or palpitations. He follows regularly with a corporate law assistant out of town. He states he still urinates frequently but small amounts. 09/27/2020 Patient seen and examined resting comfortably laying flat in bed in no acute distress. He states he slept well and did not wake up short of breath through the night. Blood pressure 148/68 heart rate 69 afebrile maintaining oxygen saturation on nasal cannula. Laboratory data reviewed, sodium 141, potassium 5.1, creatinine 3.89. Lower extremity edema has improved. PHYSICAL EXAMINATION CONSTITUTIONAL: No apparent distress. HEENT: Head is normocephalic. Pupils are equal, round. Sclerae anicteric. Mucous membranes of the mouth are moist. No JVD. No carotid bruit. CHEST EXAMINATION: Bibasilar rales. No wheezes or rhonchi. No chest wall tenderness is noted on palpation or with deep breathing. HEART EXAMINATION: Regular rate and rhythm. S1, S2 heard. Systolic ejection murmur at the apex, no gallops or rub. EXTREMITIES: 2+ peripheral pulses, trace bilateral lower extremity pitting edema and no calf tenderness. ASSESSMENT Acute on chronic diastolic heart failure Acute on chronic kidney disease Hypertension, uncontrolled Valvular heart disease PLAN Continue current medical regimen with IV diuresis. Follow renal function and electrolytes in the morning. Nurse Practitioner note has been reviewed, I agree with a documented findings and plan of care. Patient was seen and examined. Objective - Vital Signs Vital signs: Vital Signs Temp 98.0 F 09/27/20 03:46 Pulse 69 09/27/20 08:00 Resp 18 09/27/20 08:00 BP 148/68 09/27/20 08:00 Pulse Ox 93 L 09/27/20 08:00 Intake & Output 09/26/20 09/27/20 09/27/20 18:59 06:59 18:59 Intake Total 958 10 240 Output Total 300 Balance 958 -290 240 Weight 73.5 kg 76.5 kg Intake: IV 10 0.9 10 Oral 958 240 Output: Urine 300 Other: Voiding Method Toilet Incontinent # Voids 2 1 - Labs CBC & Chem 7: 09/25/20 12:00 09/27/20 07:10 Labs: Abnormal Lab Results - Last 24 Hours (Table) 09/27/20 Range/Units 07:10 BUN 112 H* (9-20) mg/dL Creatinine 3.89 H (0.66-1.25) mg/dL Glucose 101 H (74-99) mg/dL
--- NOTE | 2020-09-27 12:25 | P.CNPUL ---
History of Present Illness Consult date: 09/27/20 Requesting physician: Junior Rand Reason for consult: dyspnea, hypoxemia Chief complaint: Shortness of breath, CHF. History of present illness: Pulmonary consult dated 09/27/2020. This is an 84-year-old male, who presented to the emergency room on September 25. He came with complaints of shortness of breath. He has a history of essential hypertension, chronic anemia, heart failure, and chronic kidney disease. The patient states that for 4 or 5 days prior to admission, he was having chest congestion, and shortness of breath. The shortness of breath was worse when he lays flat, and better when he sat up. He apparently went over to urgent care and they were concerned about the fact his oxygen saturations were low, and he was transferred to the emergency room where he was evaluated and admitted with a diagnosis of CHF. We are asked to see him only today. In addition, the patient had lower extremity edema, but denied any chest pain or chest discomfort. Currently, the patient's on 6 L nasal cannula, and is not receiving IV fluids. White count 8.4, hemoglobin 10.9, hematocrit 36.1, platelet count 596,000. PT, INR, and PTT are all normal. Sodium 141, potassium 5.1, chlorides 106, CO2 26, anion gap 9, BUN 112, and creatinine 3.89. N-terminal proBNP was 10,300. Chest x-ray was consistent with fluid overload/CHF. Review of Systems REVIEW OF SYSTEMS: CONSTITUTIONAL: [Negative.] NEUROLOGIC: [ Negative.] HEENT: [ Negative.] CARDIAC: Lower extremity edema. PULMONARY: Shortness of breath, chest congestion, orthopnea. GI: [Negative.] : [Negative.] RHEUMATOLOGIC: [ Negative.] IMMUNOLOGIC: [ Negative.] ENDOCRINE: [Negative. ] DERMATOLOGIC: [Negative.] Past Medical History Past Medical History: Heart Failure, Hypertension, Prostate Disorder, Renal Disease Additional Past Medical History / Comment(s): Thrombocytemia/elevated platelets, CKD stage IV, anemia, BPH, gout R great toe, History of Any Multi-Drug Resistant Organisms: None Reported Past Surgical History: Tonsillectomy Additional Past Surgical History / Comment(s): BMA with biopsy, R hand index finger injury/partial amp, colonoscopy. Past Anesthesia/Blood Transfusion Reactions: No Reported Reaction Past Psychological History: No Psychological Hx Reported Additional Psychological History / Comment(s): Pt resides with his spouse. He is independent. Smoking Status: Never smoker Past Alcohol Use History: None Reported Past Drug Use History: None Reported - Past Family History Father Family Medical History: Cancer, Hypertension, Renal Disease Additional Family Medical History / Comment(s): Kidney Cancer Mother Family Medical History: No Reported History Additional Family Medical History / Comment(s): Mother was healthy Medications and Allergies Home Medications Medication Instructions Recorded Confirmed Type Sodium Bicarbonate Tab 1,300 mg PO TID 05/24/14 09/25/20 History Tamsulosin HCl [Flomax] 0.8 mg PO DAILY@1200 05/24/14 09/25/20 History Aspirin 81 mg PO DAILY 02/05/17 09/25/20 History allopurinoL [Zyloprim] 150 mg PO PC-LUNCH 02/05/17 09/25/20 History Furosemide [Lasix] 40 mg PO BID@0800,1200 10/20/18 09/25/20 History Agrylin 1mg 1 mg PO BID 09/25/20 09/25/20 History Calcium Carbonate [Calcium] 600 mg PO BID@1200,1700 09/25/20 09/25/20 History Epoetin Abraham-Epbx [Retacrit] 20,000 unit IJ WE 09/25/20 09/25/20 History Ergocalciferol [Vitamin D2 (1250 1,250 mcg PO WE 09/25/20 09/25/20 History Mcg = 82099 Iu)] NIFEdipine XL [Procardia Xl] 60 mg PO BID 09/25/20 09/25/20 History Nadolol [Corgard] 20 mg PO HS 09/25/20 09/25/20 History Nadolol [Corgard] 40 mg PO DAILY 09/25/20 09/25/20 History Allergies Allergy/AdvReac Type Severity Reaction Status Date / Time Iodinated Contrast Media AdvReac KIDNEY Verified 09/25/20 11:53 [Iodinated Contrast- Oral FAILURE and IV Dye] Physical Exam Osteopathic Statement: *. No significant issues noted on an osteopathic structural exam other than those noted in the History and Physical/Consult. Vitals: Vital Signs Temp Pulse Resp BP Pulse Ox 09/27/20 08:00 69 18 148/68 93 L 09/27/20 03:46 98.0 F 69 18 134/63 91 L 09/27/20 01:38 72 18 09/26/20 23:12 98.0 F 72 18 138/59 93 L 09/26/20 20:00 97.9 F 70 18 156/65 94 L 09/26/20 16:00 68 18 160/64 92 L Intake and Output 09/26/20 09/27/20 09/27/20 22:59 06:59 14:59 Intake Total 250 240 Output Total 300 Balance 250 -300 240 Intake: IV 10 0.9 10 Oral 240 240 Output: Urine 300 Other: Voiding Method Incontinent Incontinent Incontinent # Voids 1 1 Weight 76.5 kg Oriented 3, mild conversational dyspnea. Currently on 6 L. No audible wheezing, or use of accessory muscles. HEENT examination is grossly unremarkable. Neck supple. Full range of motion. No adenopathy thyromegaly or neck vein distention. Cardiovascular examination reveals regular rhythm rate. S1-S2 normal. No S3 or S4. No discernible murmur noted. Heart sounds distant. Heart rate 69 bpm. Lungs reveal bibasilar crackles. No wheezes or rhonchi. Breath sounds equal bilaterally. Abdomen soft bowel sounds are heard. No masses or tenderness. Extremities are intact. No cyanosis or clubbing. There is 1-2+ pitting edema bilaterally. Skin is without rash or lesion. Neurologic examination is brief but nonfocal. Results - Laboratory Findings CBC and BMP: 09/25/20 12:00 09/27/20 07:10 PT/INR, D-dimer PT 10.1 sec (9.0-12.0) 09/25/20 12:00 INR 0.9 (<1.2) 09/25/20 12:00 Abnormal lab findings: Abnormal Labs 09/25/20 09/25/20 09/26/20 12:00 12:00 08:14 RBC 3.96 L Hgb 10.9 L Hct 36.1 L MCHC 30.2 L RDW 18.0 H Plt Count 596 H Lymphocytes # 0.8 L Potassium 5.7 H Chloride 109 H 108 H BUN 104 H* 101 H* Creatinine 3.70 H 3.49 H Glucose 120 H 143 H Magnesium 2.4 H AST 16 L 09/27/20 07:10 RBC Hgb Hct MCHC RDW Plt Count Lymphocytes # Potassium Chloride BUN 112 H* Creatinine 3.89 H Glucose 101 H Magnesium AST - Diagnostic Findings Chest x-ray: image reviewed Assessment and Plan Assessment: Hypoxemic respiratory failure, secondary to acute CHF, diastolic in nature, with valvular heart disease. Chronic kidney disease. History of hypertension. History of gout. History of chronic anemia. Lifelong nonsmoker. Plan: Plan dated 09/27/2020. The patient's primary problem is CHF and valvular heart disease. There is no history of any lung disease. Updrafts, and other nebulized bronchodilators are of no benefit. 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 Treatment is primarily aimed at CHF. We'll continue to follow. No additional recommendations are made at this time. Time with Patient: Greater than 30
[2020-09-27] MEDS: allopurinoL 300 MG TAB PO SCH (12:34)
--- NOTE | 2020-09-27 15:32 | P.PN ---
Subjective 84-year-old male came in with comments of shortness of breath or which started about couple days ago feels congested has been waking up for about a week at nighttime. Denied any clear history of orthopnea paroxysmal nocturnal dyspnea in spite of above-mentioned history. Patient doesn't have any history of COPD patient appears to have had chronic diastolic dysfunction in the past. Patient does have pedal edema does have elevated BNP and chest x-ray is consistent with pulmonary edema. Patient doesn't use any oxygen at home presently on 3 L of of oxygen. Patient usually uses 40 twice a day of the oral Lasix. Patient has chronic kidney disease stage IV with baseline creatinine around 3. Patient does have elevated potassium of 5.7 which will be monitored troponin is negative EKG sinus rhythm with frequent PVCs with right bundle branch block and left anterior fascicular block. 09/26/2020 Patient the pedal edema. Straight improved compared to yesterday. Patient fairly feels the same as yesterday. Unable to clearly assess the urine output because of his incontinence. Patient remains on IV Lasix was evaluated by cardiology, there is marginal improvement in serum creatinine from 3.7-3.49. Patient remained short of breath. 09/27/2020 The patient was pretty status is bit worse patient is on 60 mg twice a day of IV Lasix in spite of which patient didn't have any significant improvement in clinical is pretty status and requiring more oxygen because of which I'm consulting nephrology for recommendations regarding Lasix and diuretic therapy patient has wheezing on exam, or feels more short of breath doesn't have any history of COPD patient appears to have cardiac Asthma pulmonary was consulted because of not improvement in his respiratory status. Unable to assess the input and output because of his incontinence patient probably will benefit from Drake catheter. Patient doesn't have any much of pedal edema today Constitutional: Denied any fatigue denied any fever. Cardio vascular: denied any chest pain, palpitations Gastrointestinal denied any nausea vomiting Pulmonary: As mentioned in HPI Neurologic denied any new focal deficits All inpatient medications were reviewed and appropriate changes in these medica tions as dictated in the interval history and assessment and plan. Objective - Vital Signs Vital signs: Vital Signs Temp 98.0 F 09/27/20 03:46 Pulse 71 09/27/20 12:00 Resp 16 09/27/20 12:00 BP 160/65 09/27/20 12:00 Pulse Ox 94 L 09/27/20 12:00 Intake & Output 09/26/20 09/27/20 09/27/20 18:59 06:59 18:59 Intake Total 958 10 240 Output Total 300 Balance 958 -290 240 Weight 73.5 kg 76.5 kg Intake: IV 10 0.9 10 Oral 958 240 Output: Urine 300 Other: Voiding Method Toilet Incontinent Incontinent # Voids 2 1 - Exam PHYSICAL EXAMINATION: GENERAL: The patient is alert and oriented x3, not in any acute distress. Well developed, well nourished. HEENT: Pupils are round and equally reacting to light. EOMI. No scleral icterus. No conjunctival pallor. Normocephalic, atraumatic. No pharyngeal erythema. No thyromegaly. CARDIOVASCULAR: S1 and S2 present. No murmurs, rubs, or gallops. PULMONARY: Expiratory wheezing on exam ABDOMEN: Soft, nontender, nondistended, normoactive bowel sounds. No palpable organomegaly. MUSCULOSKELETAL: No joint swelling or deformity. EXTREMITIES: No cyanosis, clubbing, bilateral pitting pedal edema, which improved compared to yesterday NEUROLOGICAL: Gross neurological examination did not reveal any focal deficits. SKIN: No rashes. - Labs CBC & Chem 7: 09/25/20 12:00 09/27/20 07:10 Labs: Abnormal Lab Results - Last 24 Hours (Table) 09/27/20 Range/Units 07:10 BUN 112 H* (9-20) mg/dL Creatinine 3.89 H (0.66-1.25) mg/dL Glucose 101 H (74-99) mg/dL Assessment and Plan Plan: -Acute hypoxic respiratory failure: Secondary to congestive heart failure exacerbation patient probably has chronic diastolic dysfunction with acute exacerbation. Remains on IV Lasix without any significant improvement, consult pulmonary and the nephrology. 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
[2020-09-27] MEDS ORDERED: BUDESONIDE 0.5 MG/2 ML NEBU INHALATION SCH (20:00)
[2020-09-28] MEDS: hydrALAZINE HCL 50 MG TAB PO SCH ×2 (08:26→21:08)
[2020-09-28] MEDS: SODIUM BICARBONATE TAB 650 MG TAB PO SCH ×3 (08:26→21:07)
[2020-09-28] MEDS: HEPARIN SODIUM,PORCINE/PF 5,000 UNIT/0.5 ML SYRINGE SQ SCH ×2 (08:27→21:08)
[2020-09-28] MEDS: ASPIRIN 81 MG PO SCH (08:27)
[2020-09-28] MEDS: ANAGRELIDE 1 MG PO SCH ×3 (08:27→21:47)
[2020-09-28] MEDS: FUROSEMIDE 10 MG/ML 10 ML VIAL IV SCH ×2 (08:27→16:22)
[2020-09-28 08:30] LABS: Calcium 9.5 mg/dL (8.4-10.2); Potassium 5.3 mmol/L (3.5-5.1)
--- NOTE | 2020-09-28 12:17 | P.PN ---
Subjective Progress Note Date: 09/28/20 Principal diagnosis: Acute exacerbation of chronic diastolic congestive heart failure, valvular heart disease This is an 84-year-old male, who presented to the emergency room on September 25. He came with complaints of shortness of breath. He has a history of essential hypertension, chronic anemia, heart failure, and chronic kidney disease. The patient states that for 4 or 5 days prior to admission, he was having chest congestion, and shortness of breath. The shortness of breath was worse when he lays flat, and better when he sat up. He apparently went over to urgent care a nd they were concerned about the fact his oxygen saturations were low, and he was transferred to the emergency room where he was evaluated and admitted with a diagnosis of CHF. We are asked to see him only today. In addition, the patient had lower extremity edema, but denied any chest pain or chest discomfort. Currently, the patient's on 6 L nasal cannula, and is not receiving IV fluids. White count 8.4, hemoglobin 10.9, hematocrit 36.1, platelet count 596,000. PT, INR, and PTT are all normal. Sodium 141, potassium 5.1, chlorides 106, CO2 26, anion gap 9, BUN 112, and creatinine 3.89. N-terminal proBNP was 10,300. Chest x-ray was consistent with fluid overload/CHF. The patient is seen today 09/28/2020 in follow-up on the selective care unit. He is doing a bit better today compared to yesterday. He is currently on 6 L high flow nasal cannula. O2 saturation 91%. He is afebrile. Hemodynamically stable. Sodium 142. Potassium 4.3. BUN 127. Creatinine 4.14. He remains on Lasix 60 mg IV every 8 hours. Incontinent of urine. No accurate I&O. Objective - Vital Signs Vital signs: Vital Signs Temp 98.0 F 09/28/20 08:23 Pulse 67 09/28/20 08:23 Resp 20 09/28/20 08:23 BP 138/63 09/28/20 08:23 Pulse Ox 91 L 09/28/20 08:23 Intake & Output 09/27/20 09/28/20 09/28/20 18:59 06:59 18:59 Intake Total 480 250 240 Output Total 100 200 125 Balance 380 50 115 Weight 74.4 kg Intake: IV 10 0.9 10 Oral 480 240 240 Output: Urine 100 200 125 Other: Voiding Method Incontinent Incontinent Incontinent # Voids 1 # Bowel Movements 1 - Exam GENERAL EXAM: Alert, pleasant 84-year-old gentleman, on 6 L nasal cannula, comfortable in no apparent distress. HEAD: Normocephalic. EYES: Normal reaction of pupils, equal size. NOSE: Clear with pink turbinates. THROAT: No erythema or exudates. NECK: No masses, no JVD. CHEST: No chest wall deformity. LUNGS: Equal air entry with crackles in the bilateral bases. CVS: S1 and S2 normal with no audible murmur, regular rhythm. ABDOMEN: No hepatosplenomegaly, normal bowel sounds, no guarding or rigidity. SPINE: No scoliosis or deformity SKIN: No rashes CENTRAL NERVOUS SYSTEM: No focal deficits, tone is normal in all 4 extremities. EXTREMITIES: There is 1-2+ peripheral edema. No clubbing, no cyanosis. Peripheral pulses are intact. - Labs CBC & Chem 7: 09/25/20 12:00 09/28/20 07:46 Labs: Abnormal Lab Results - Last 24 Hours (Table) 09/28/20 Range/Units 07:46 Potassium 5.3 H (3.5-5.1) mmol/L BUN 127 H* (9-20) mg/dL Creatinine 4.14 H (0.66-1.25) mg/dL Glucose 109 H (74-99) mg/dL Assessment and Plan Assessment: 1 Acute hypoxemic respiratory failure secondary to an acute exacerbation of chronic diastolic heart disease 2 Valvular heart disease 3 Chronic kidney disease 4 History of hypertension 5 Gout 6 Chronic anemia 7 Lifelong nonsmoker. Plan: The patient was seen and evaluated by Dr. Bay Continue the current treatment plan for now Titrate down the FiO2 as tolerated We will continue to follow I, the cosigning physician, performed a history & physical examination of the patient. Lungs sounds crackles in the bilateral posterior bases. Maintaining O2 saturations in the 90s on 6 L high flow nasal cannula. I discussed the assessment and plan of care with my nurse practitioner, Olesya Payne. I attest to the above note as dictated by her.
[2020-09-28] MEDS: TAMSULOSIN 0.4 MG CAP.ER.24H PO SCH (12:19)
[2020-09-28] MEDS: allopurinoL 300 MG TAB PO SCH (12:19)
[2020-09-28] MEDS: CALCIUM CARB-VIT D 500 MG-5 MCG TAB PO SCH ×2 (12:19→16:22)
--- NOTE | 2020-09-28 13:11 | P.PN ---
Subjective 84-year-old male came in with comments of shortness of breath or which started about couple days ago feels congested has been waking up for about a week at nighttime. Denied any clear history of orthopnea paroxysmal nocturnal dyspnea in spite of above-mentioned history. Patient doesn't have any history of COPD patient appears to have had chronic diastolic dysfunction in the past. Patient does have pedal edema does have elevated BNP and chest x-ray is consistent with pulmonary edema. Patient doesn't use any oxygen at home presently on 3 L of of oxygen. Patient usually uses 40 twice a day of the oral Lasix. Patient has chronic kidney disease stage IV with baseline creatinine around 3. Patient does have elevated potassium of 5.7 which will be monitored troponin is negative EKG sinus rhythm with frequent PVCs with right bundle branch block and left anterior fascicular block. 09/26/2020 Patient the pedal edema. Straight improved compared to yesterday. Patient fairly feels the same as yesterday. Unable to clearly assess the urine output because of his incontinence. Patient remains on IV Lasix was evaluated by cardiology, there is marginal improvement in serum creatinine from 3.7-3.49. Patient remained short of breath. 09/27/2020 The patient was pretty status is bit worse patient is on 60 mg twice a day of IV Lasix in spite of which patient didn't have any significant improvement in clinical is pretty status and requiring more oxygen because of which I'm consulting nephrology for recommendations regarding Lasix and diuretic therapy patient has wheezing on exam, or feels more short of breath doesn't have any history of COPD patient appears to have cardiac Asthma pulmonary was consulted because of not improvement in his respiratory status. Unable to assess the input and output because of his incontinence patient probably will benefit from Drake catheter. Patient doesn't have any much of pedal edema today. 09/28/2020 Since wheezing improved patient mentions and 6 L of oxygen. Patient was evaluated by nephrology patient creatinine continued to get worse. Patient will be started on hemodialysis. Constitutional: Denied any fatigue denied any fever. Cardio vascular: denied any chest pain, palpitations Gastrointestinal denied any nausea vomiting Pulmonary: As mentioned in HPI Neurologic denied any new focal deficits All inpatient medications were reviewed and appropriate changes in these medications as dictated in the interval history and assessment and plan. Objective - Vital Signs Vital signs: Vital Signs Temp 97.9 F 09/28/20 12:00 Pulse 68 09/28/20 12:00 Resp 18 09/28/20 12:00 BP 129/49 09/28/20 12:00 Pulse Ox 92 L 09/28/20 12:00 Intake & Output 09/27/20 09/28/20 09/28/20 18:59 06:59 18:59 Intake Total 480 250 480 Output Total 100 200 125 Balance 380 50 355 Weight 74.4 kg Intake: IV 10 0.9 10 Oral 480 240 480 Output: Urine 100 200 125 Other: Voiding Method Incontinent Incontinent Incontinent # Voids 1 # Bowel Movements 1 - Exam PHYSICAL EXAMINATION: GENERAL: The patient is alert and oriented x3, not in any acute distress. Well developed, well nourished. HEENT: Pupils are round and equally reacting to light. EOMI. No scleral icterus. No conjunctival pallor. Normocephalic, atraumatic. No pharyngeal erythema. No thyromegaly. CARDIOVASCULAR: S1 and S2 present. No murmurs, rubs, or gallops. PULMONARY: Expiratory wheezing on exam ABDOMEN: Soft, nontender, nondistended, normoactive bowel sounds. No palpable organomegaly. MUSCULOSKELETAL: No joint swelling or deformity. EXTREMITIES: No cyanosis, clubbing, bilateral pitting pedal edema, which improved compared to yesterday NEUROLOGICAL: Gross neurological examination did not reveal any focal deficits. SKIN: No rashes. - Labs CBC & Chem 7: 09/25/20 12:00 09/28/20 07:46 Labs: Abnormal Lab Results - Last 24 Hours (Table) 09/28/20 Range/Units 07:46 Potassium 5.3 H (3.5-5.1) mmol/L BUN 127 H* (9-20) mg/dL Creatinine 4.14 H (0.66-1.25) mg/dL Glucose 109 H (74-99) mg/dL Assessment and Plan Plan: -Acute hypoxic respiratory failure: Secondary to congestive heart failure exacerbation patient probably has chronic diastolic dysfunction with acute exacerbation. Remains on IV Lasix patient's creatinine continued to get worse. 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
--- NOTE | 2020-09-28 13:21 | P.PN ---
Subjective HISTORY OF PRESENTING ILLNESS This is a pleasant 84-year-old male past medical history significant for peripheral vascular disease, chronic kidney disease, valvular heart disease, pulmonary hypertension and hypertension. He follows in the office with Dr. Joya. We have been asked to see in consultation for heart failure. He states for the previous 1-week he has been waking up at night feeling congested and short of breath. He has also noticed increased lower extremity swelling. He was in the office yesterday to have a routine echo performed when he left he started feeling short of breath and wheezy. He went to urgent care and was found to be hypoxic and was sent here for further evaluation. On arrival to ER his pulse ox was 93%. He denies chest pain, dizziness or palpitations. He follows regularly with a engineering documentation specialist out of town. He states he still urinates frequently but small amounts. 09/28/2020 Patient seen and examined resting comfortably laying flat in bed in no acute distress. He continues to feel short of breath. He is audibly wheezing. Blood pressure 138/63 heart rate 67 afebrile maintaining oxygen saturation on nasal cannula. Laboratory data reviewed, sodium 142, potassium 5.3, creatinine 4.14 up from 3.89. An accurate documentation of urinary output due to incontinence. Currently maintained on Lasix 60 mg IV twice a day. Nephrology is following. PHYSICAL EXAMINATION CONSTITUTIONAL: No apparent distress. HEENT: Head is normocephalic. Pupils are equal, round. Sclerae anicteric. Mucous membranes of the mouth are moist. No JVD. No carotid bruit. CHEST EXAMINATION: Bibasilar rales. No wheezes or rhonchi. No chest wall tenderness is noted on palpation or with deep breathing. HEART EXAMINATION: Regular rate and rhythm. S1, S2 heard. Systolic ejection murmur at the apex, no gallops or rub. EXTREMITIES: 2+ peripheral pulses, trace bilateral lower extremity pitting edema and no calf tenderness. ASSESSMENT Acute on chronic diastolic heart failure Acute on chronic kidney disease Hypertension, uncontrolled Valvular heart disease PLAN Increase diuretics to TID. Follow renal function in the morning. Nurse Practitioner note has been reviewed, I agree with a documented findings and plan of care. Patient was seen and examined. Objective - Vital Signs Vital signs: Vital Signs Temp 98.0 F 09/28/20 08:23 Pulse 67 09/28/20 08:23 Resp 20 09/28/20 08:23 BP 138/63 09/28/20 08:23 Pulse Ox 91 L 09/28/20 08:23 Intake & Output 09/27/20 09/28/20 09/28/20 18:59 06:59 18:59 Intake Total 480 250 240 Output Total 100 200 Balance 380 50 240 Weight 74.4 kg Intake: IV 10 0.9 10 Oral 480 240 240 Output: Urine 100 200 Other: Voiding Method Incontinent Incontinent Incontinent # Voids 1 - Labs CBC & Chem 7: 09/25/20 12:00 09/28/20 07:46 Labs: Abnormal Lab Results - Last 24 Hours (Table) 09/28/20 Range/Units 07:46 Potassium 5.3 H (3.5-5.1) mmol/L BUN 127 H* (9-20) mg/dL Creatinine 4.14 H (0.66-1.25) mg/dL Glucose 109 H (74-99) mg/dL
--- NOTE | 2020-09-28 14:50 | CONS ---
CONSULTATION REASON FOR CONSULT: Renal failure. HISTORY OF PRESENT ILLNESS: Patient is an 84-year-old male with history of chronic kidney disease NKF stage 4-5 with recent deterioration in renal function. The patient also has history of CHF, appears to be mostly diastolic dysfunction with ejection fraction 55% to 60% in 2019. Patient was admitted to the hospital with complaints of shortness of breath and dyspnea on exertion. No history of fever, chills, nausea, vomiting. His appetite is fair. Serum creatinine was 3.7 on admission. It is up to 4.1 now and BUN is up to 127. Previous creatinine was 2.8-3.0 in August of 2020 as well as 2019. Serum potassium 5.7 on initial admission currently at 5.3. The patient is incontinent. A 24-hour urine output not accurate. Currently charted at about 300 mL as patient is incontinent. He is maintained on Lasix 60 mg IV q.12 hours. Chest x-ray from yesterday continues to show pulmonary edema and pulmonary vascular congestion with bilateral basilar effusions. PAST MEDICAL HISTORY: Significant for CHF, CKD, BPH, peripheral vascular disease, anemia of chronic disease, gout. PAST SURGICAL HISTORY: Colonoscopy, right hand index finger injury. SOCIAL HISTORY: Negative for smoking, drug abuse or alcohol abuse. MEDICATIONS: Medications prior to admission included sodium bicarb, Flomax, Zyloprim, Lasix, Agrylin, calcium carbonate, Procardia, Corgard. ALLERGIES: Allergies include IV DYE. REVIEW OF SYSTEMS: As per HPI. Other systems negative. PHYSICAL EXAMINATION: Patient is comfortable, awake. He is short of breath with audible wheezing. Blood pressure is 138/63, heart rate 67 per minute. He is afebrile. EXAMINATION OF THE HEART: S1, S2. EXAMINATION OF THE LUNGS: Bilateral breath sounds are heard. Wheezing is heard bilaterally. Abdomen is soft, nontender. Examination of lower extremities shows edema 1+ bilaterally. Chronic skin changes noted. CLIENT SERVICES DIRECTOR exam grossly intact. LABS: Labs show sodium 142, potassium 5.3, chloride 104, BUN 127, serum creatinine 4.1. Coronavirus PCR negative. ASSESSMENT: 1. Acute kidney injury cardiorenal with persistent volume overload and worsening renal function. Patient will need to start renal replacement therapy this admission. I have discussed this with him. We will also check a post-void bladder scan to rule out any underlying urinary retention and obstructive uropathy. 2. Chronic kidney disease NKF stage 4-5 with baseline GFR about 18-14 mL/minute and creatinine about 2.8-3 mg/dL for baseline. 3. Hyperkalemia associated with worsening renal failure. 4. Congestive heart failure acute on top of chronic, mostly diastolic. 5. Volume overload. 6. Anemia of chronic disease. 7. Chronic kidney disease mineral bone disorder. PLAN: Continue with Lasix. Check post-void bladder scan. Rule out urine retention. I discussed with the patient regarding need for possibly starting dialysis in the next 24- 48 hours as he remains volume overloaded and has worsening renal function with BUN of 127 and creatinine up to 4.1. He also is marginally hyperkalemic. There are no nephrotoxic agents on board and blood pressure is currently not low. Once urine retention and other causes of renal failure are ruled out, he will need to start dialysis this admission. Continue with the sodium bicarb. Continue with current dose of IV Lasix for now, repeat labs in a.m. Thank you for this consultation. We will continue to follow the patient with you during his hospitalization. MMODL / IJN: [id number] /
[2020-09-29] MEDS: FUROSEMIDE 10 MG/ML 10 ML VIAL IV SCH ×4 (00:07→23:55)
[2020-09-29] MEDS: IPRATROPIUM-ALBUTEROL 3 ML NEB INHALATION PRN (08:04)
[2020-09-29] MEDS: HEPARIN SODIUM,PORCINE/PF 5,000 UNIT/0.5 ML SYRINGE SQ SCH ×2 (08:21→20:25)
[2020-09-29] MEDS: ASPIRIN 81 MG PO SCH (08:22)
[2020-09-29] MEDS: hydrALAZINE HCL 50 MG TAB PO SCH ×2 (08:22→20:24)
[2020-09-29] MEDS: SODIUM BICARBONATE TAB 650 MG TAB PO SCH (08:22)
[2020-09-29] MEDS: ANAGRELIDE 1 MG PO SCH ×3 (08:23→20:25)
[2020-09-29 08:32] LABS: Anisocytosis Slight; HCT 31.2 % (39.0-53.0); HGB 9.8 gm/dL (13.0-17.5); Hypochromasia Slight; MCH 28.6 pg (25.0-35.0); MCHC 31.3 g/dL (31.0-37.0); MCV 91.3 fL (80.0-100.0); Platelet Count 489 k/uL (150-450); RBC 3.42 m/uL (4.30-5.90); RDW 17.7 % (11.5-15.5); WBC 7.5 k/uL (3.8-10.6)
[2020-09-29 08:46] LABS: Calcium 9.4 mg/dL (8.4-10.2); Potassium 5.6 mmol/L (3.5-5.1)
--- NOTE | 2020-09-29 11:30 | PN ---
PROGRESS NOTE Patient is seen for followup for acute kidney injury mostly cardiorenal with worsening renal failure and persistent volume overload. Patient has been talked to regarding starting renal replacement therapy since he continues to be quite short of breath and has had worsening renal function. He is agreeable. PHYSICAL EXAMINATION: On examination today, blood pressure was 144/55, heart rate 72 per minute. He is afebrile. EXAMINATION OF THE HEART: S1, S2. EXAMINATION OF THE LUNGS: Decreased breath sounds at bases. Wheezing is heard bilaterally. Abdomen is soft, nontender. Examination of lower extremities shows edema 1+ bilaterally. DEFECT REPAIRER GLASSWARE exam grossly intact. Patient is moving all 4 extremities. LABS: Labs show sodium 140, potassium 5.6, BUN 141, serum creatinine 4.7, hemoglobin 9.8 g/dL. ASSESSMENT: 1. Acute kidney injury cardiorenal with progressive renal failure and continued volume overload. Patient will be dialyzed. He has agreed to starting renal replacement therapy if his renal function worsens and today his creatinine has increased to 4.74 with BUN of 141 and potassium 5.6. We will proceed with vascular surgery consult and dialysis catheter placement. 2. Chronic kidney disease NKF stage 4-5 with previous creatinine around 2.8-3 mg/dL secondary to nephrosclerosis. 3. Hyperkalemia with worsening renal failure expect improvement with dialysis. 4. Congestive heart failure acute on top of chronic, mostly diastolic. 5. Chronic kidney disease mineral bone disorder. 6. Anemia of chronic disease. PLAN: Proceed with vascular surgery consult for placement of dialysis catheter. We will plan on first treatment tomorrow. Check chest x-ray today. I will discontinue the sodium bicarb as well. MMODL / IJN: [id number] /
--- NOTE | 2020-09-29 11:40 | P.PN ---
Subjective HISTORY OF PRESENTING ILLNESS This is a pleasant 84-year-old male past medical history significant for peripheral vascular disease, chronic kidney disease, valvular heart disease, pulmonary hypertension and hypertension. He follows in the office with Dr. Joya. We have been asked to see in consultation for heart failure. He states for the previous 1-week he has been waking up at night feeling congested and short of breath. He has also noticed increased lower extremity swelling. He was in the office yesterday to have a routine echo performed when he left he started feeling short of breath and wheezy. He went to urgent care and was found to be hypoxic and was sent here for further evaluation. On arrival to ER his pulse ox was 93%. He denies chest pain, dizziness or palpitations. He follows regularly with a junior account executive out of town. He states he still urinates frequently but small amounts. 09/29/2020 Pt is seen and examined sitting up in bed. He continues to feel short of breath and is wheezing. Blood pressure 144/55 heart rate 72 afebrile and maintaining oxygen saturation on nasal cannula. Still requiring 6 liters. Laboratory data reviewed, sodium 140, potassium 5.6, creatinine 4.74. PHYSICAL EXAMINATION CONSTITUTIONAL: No apparent distress. HEENT: Head is normocephalic. Pupils are equal, round. Sclerae anicteric. Mucous membranes of the mouth are moist. No JVD. No carotid bruit. CHEST EXAMINATION: Bibasilar rales. No wheezes or rhonchi. No chest wall tenderness is noted on palpation or with deep breathing. HEART EXAMINATION: Regular rate and rhythm. S1, S2 heard. Systolic ejection murmur at the apex, no gallops or rub. EXTREMITIES: 2+ peripheral pulses, trace bilateral lower extremity pitting edema and no calf tenderness. ASSESSMENT Acute on chronic diastolic heart failure Acute on chronic kidney disease Hypertension, uncontrolled Valvular heart disease PLAN Nephrology is recommending dialysis on this admission for worsening renal function with persistent fluid overload. Nurse Practitioner note has been reviewed, I agree with a documented findings and plan of care. Patient was seen and examined. Objective - Vital Signs Vital signs: Vital Signs Temp 98.1 F 09/29/20 08:19 Pulse 72 09/29/20 08:19 Resp 18 09/29/20 08:19 BP 144/55 09/29/20 08:19 Pulse Ox 92 L 09/29/20 08:19 Intake & Output 09/28/20 09/29/20 09/29/20 18:59 06:59 18:59 Intake Total 1200 Output Total 525 Balance 675 Weight 74.5 kg Intake: Oral 1200 Output: Urine 425 Post Void Residual 100 Other: Voiding Method Incontinent Incontinent Incontinent # Voids 2 # Bowel Movements 1 - Labs CBC & Chem 7: 09/29/20 07:47 09/29/20 07:47 Labs: Abnormal Lab Results - Last 24 Hours (Table) 09/29/20 09/29/20 Range/Units 07:47 07:47 RBC 3.42 L (4.30-5.90) m/uL Hgb 9.8 L (13.0-17.5) gm/dL Hct 31.2 L (39.0-53.0) % RDW 17.7 H (11.5-15.5) % Plt Count 489 H (150-450) k/uL Potassium 5.6 H (3.5-5.1) mmol/L BUN 141 H* (9-20) mg/dL Creatinine 4.74 H (0.66-1.25) mg/dL Glucose 112 H (74-99) mg/dL
--- NOTE | 2020-09-29 12:01 | P.PN ---
Subjective 84-year-old male came in with comments of shortness of breath or which started about couple days ago feels congested has been waking up for about a week at nighttime. Denied any clear history of orthopnea paroxysmal nocturnal dyspnea in spite of above-mentioned history. Patient doesn't have any history of COPD patient appears to have had chronic diastolic dysfunction in the past. Patient does have pedal edema does have elevated BNP and chest x-ray is consistent with pulmonary edema. Patient doesn't use any oxygen at home presently on 3 L of of oxygen. Patient usually uses 40 twice a day of the oral Lasix. Patient has chronic kidney disease stage IV with baseline creatinine around 3. Patient does have elevated potassium of 5.7 which will be monitored troponin is negative EKG sinus rhythm with frequent PVCs with right bundle branch block and left anterior fascicular block. 09/26/2020 Patient the pedal edema. Straight improved compared to yesterday. Patient fairly feels the same as yesterday. Unable to clearly assess the urine output because of his incontinence. Patient remains on IV Lasix was evaluated by cardiology, there is marginal improvement in serum creatinine from 3.7-3.49. Patient remained short of breath. 09/27/2020 The patient was pretty status is bit worse patient is on 60 mg twice a day of IV Lasix in spite of which patient didn't have any significant improvement in clinical is pretty status and requiring more oxygen because of which I'm consulting nephrology for recommendations regarding Lasix and diuretic therapy patient has wheezing on exam, or feels more short of breath doesn't have any history of COPD patient appears to have cardiac Asthma pulmonary was consulted because of not improvement in his respiratory status. Unable to assess the input and output because of his incontinence patient probably will benefit from Drake catheter. Patient doesn't have any much of pedal edema today. 09/28/2020 Since wheezing improved patient mentions and 6 L of oxygen. Patient was evaluated by nephrology patient creatinine continued to get worse. Patient will be started on hemodialysis. 09/29/2020 Patient 6 L of oxygen. Patient will undergo hemodialysis catheter placement today. he will undergo hemodialysis either today or tomorrow Constitutional: Denied any fatigue denied any fever. Cardio vascular: denied any chest pain, palpitations Gastrointestinal denied any nausea vomiting Pulmonary: As mentioned in HPI Neurologic denied any new focal deficits All inpatient medications were reviewed and appropriate changes in these medications as dictated in the interval history and assessment and plan. Objective - Vital Signs Vital signs: Vital Signs Temp 98.1 F 09/29/20 08:19 Pulse 72 09/29/20 08:19 Resp 18 09/29/20 08:19 BP 144/55 09/29/20 08:19 Pulse Ox 92 L 09/29/20 08:19 Intake & Output 09/28/20 09/29/20 09/29/20 18:59 06:59 18:59 Intake Total 1200 Output Total 525 Balance 675 Weight 74.5 kg Intake: Oral 1200 Output: Urine 425 Post Void Residual 100 Other: Voiding Method Incontinent Incontinent Incontinent # Voids 2 # Bowel Movements 1 - Exam PHYSICAL EXAMINATION: GENERAL: The patient is alert and oriented x3, not in any acute distress. Well developed, well nourished. HEENT: Pupils are round and equally reacting to light. EOMI. No scleral icterus. No conjunctival pallor. Normocephalic, atraumatic. No pharyngeal erythema. No thyromegaly. CARDIOVASCULAR: S1 and S2 present. No murmurs, rubs, or gallops. PULMONARY: Expiratory wheezing on exam ABDOMEN: Soft, nontender, nondistended, normoactive bowel sounds. No palpable organomegaly. MUSCULOSKELETAL: No joint swelling or deformity. EXTREMITIES: No cyanosis, clubbing, bilateral pitting pedal edema, which improved compared to yesterday NEUROLOGICAL: Gross neurological examination did not reveal any focal deficits. SKIN: No rashes. - Labs CBC & Chem 7: 09/29/20 07:47 09/29/20 07:47 Labs: Abnormal Lab Results - Last 24 Hours (Table) 09/29/20 09/29/20 Range/Units 07:47 07:47 RBC 3.42 L (4.30-5.90) m/uL Hgb 9.8 L (13.0-17.5) gm/dL Hct 31.2 L (39.0-53.0) % RDW 17.7 H (11.5-15.5) % Plt Count 489 H (150-450) k/uL Potassium 5.6 H (3.5-5.1) mmol/L BUN 141 H* (9-20) mg/dL Creatinine 4.74 H (0.66-1.25) mg/dL Glucose 112 H (74-99) mg/dL Assessment and Plan Plan: -Acute hypoxic respiratory failure: Secondary to congestive heart failure e xacerbation patient probably has chronic diastolic dysfunction with acute exacerbation. Remains on IV Lasix patient's creatinine continued to get worse. Patient will need hemodialysis, urinalysis catheter placement today patient has cardiorenal syndrome. 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
[2020-09-29] MEDS: TAMSULOSIN 0.4 MG CAP.ER.24H PO SCH (12:25)
[2020-09-29] MEDS: CALCIUM CARB-VIT D 500 MG-5 MCG TAB PO SCH ×2 (12:25→16:08)
[2020-09-29] MEDS: allopurinoL 300 MG TAB PO SCH (12:25)
--- NOTE | 2020-09-29 12:49 | P.PN ---
Subjective Progress Note Date: 09/29/20 Principal diagnosis: Acute exacerbation of chronic diastolic congestive heart failure, valvular heart disease This is an 84-year-old male, who presented to the emergency room on September 25. He came with complaints of shortness of breath. He has a history of essential hypertension, chronic anemia, heart failure, and chronic kidney disease. The patient states that for 4 or 5 days prior to admission, he was having chest congestion, and shortness of breath. The shortness of breath was worse when he lays flat, and better when he sat up. He apparently went over to urgent care a nd they were concerned about the fact his oxygen saturations were low, and he was transferred to the emergency room where he was evaluated and admitted with a diagnosis of CHF. We are asked to see him only today. In addition, the patient had lower extremity edema, but denied any chest pain or chest discomfort. Currently, the patient's on 6 L nasal cannula, and is not receiving IV fluids. White count 8.4, hemoglobin 10.9, hematocrit 36.1, platelet count 596,000. PT, INR, and PTT are all normal. Sodium 141, potassium 5.1, chlorides 106, CO2 26, anion gap 9, BUN 112, and creatinine 3.89. N-terminal proBNP was 10,300. Chest x-ray was consistent with fluid overload/CHF. The patient is seen today 09/28/2020 in follow-up on the selective care unit. He is doing a bit better today compared to yesterday. He is currently on 6 L high flow nasal cannula. O2 saturation 91%. He is afebrile. Hemodynamically stable. Sodium 142. Potassium 4.3. BUN 127. Creatinine 4.14. He remains on Lasix 60 mg IV every 8 hours. Incontinent of urine. No accurate I&O. The patient is seen today the 2020 in follow-up on the selective care unit. He is currently resting quite comfortably in bed. Awake and alert in no acute distress. He remains on 6 L high flow nasal cannula. Current O2 saturation 92%. White count 7.5. Hemoglobin 9.8. Sodium 140. Potassium 5.6. BUN 141. Creatinine 4.74. He remains on Lasix 60 mg IV every 8 hours. The plan is for renal replacement therapy. Catheter to be placed by vascular. He remains on bronchodilators. Heparin for DVT prophylaxis. Objective - Vital Signs Vital signs: Vital Signs Temp 98.0 F 09/29/20 12:24 Pulse 72 09/29/20 12:24 Resp 18 09/29/20 12:24 BP 133/57 09/29/20 12:24 Pulse Ox 92 L 09/29/20 12:24 Intake & Output 09/28/20 09/29/20 09/29/20 18:59 06:59 18:59 Intake Total 1200 Output Total 525 Balance 675 Weight 74.5 kg Intake: Oral 1200 Output: Urine 425 Post Void Residual 100 Other: Voiding Method Incontinent Incontinent Incontinent # Voids 2 # Bowel Movements 1 - Exam GENERAL EXAM: Alert, pleasant 84-year-old gentleman, on 6 L nasal cannula, comfortable in no apparent distress. HEAD: Normocephalic. EYES: Normal reaction of pupils, equal size. NOSE: Clear with pink turbinates. THROAT: No erythema or exudates. NECK: No masses, no JVD. CHEST: No chest wall deformity. LUNGS: Equal air entry with crackles in the bilateral bases. CVS: S1 and S2 normal with no audible murmur, regular rhythm. ABDOMEN: No hepatosplenomegaly, normal bowel sounds, no guarding or rigidity. SPINE: No scoliosis or deformity SKIN: No rashes CENTRAL NERVOUS SYSTEM: No focal deficits, tone is normal in all 4 extremities. EXTREMITIES: There is 1-2+ peripheral edema. No clubbing, no cyanosis. Peripheral pulses are intact. - Labs CBC & Chem 7: 09/29/20 07:47 09/29/20 07:47 Labs: Abnormal Lab Results - Last 24 Hours (Table) 09/29/20 09/29/20 Range/Units 07:47 07:47 RBC 3.42 L (4.30-5.90) m/uL Hgb 9.8 L (13.0-17.5) gm/dL Hct 31.2 L (39.0-53.0) % RDW 17.7 H (11.5-15.5) % Plt Count 489 H (150-450) k/uL Potassium 5.6 H (3.5-5.1) mmol/L BUN 141 H* (9-20) mg/dL Creatinine 4.74 H (0.66-1.25) mg/dL Glucose 112 H (74-99) mg/dL Assessment and Plan Assessment: 1 Acute hypoxemic respiratory failure secondary to an acute exacerbation of chronic diastolic heart disease 2 Valvular heart disease 3 Chronic kidney disease with worsening renal function. Current creatinine 4.74 4 History of hypertension 5 Gout 6 Chronic anemia 7 Lifelong nonsmoker. Plan: The patient was seen and evaluated by Dr. Bay Continue the current treatment plan for now The plan is to proceed with renal replacement therapy Continue diuretics Titrate down the FiO2 as tolerated Follow-up chest x-ray in a.m. We will continue to follow I, the cosigning physician, performed a history & physical examination of the patient. Lungs sounds crackles in the bilateral posterior bases. Maintaining O2 saturations in the 90s on 6 L high flow nasal cannula. I discussed the ass essment and plan of care with my nurse practitioner, Olesya Payne. I attest to the above note as dictated by her.
[2020-09-29] MEDS ORDERED: SODIUM CHLORIDE 0.9% 1,000 ML IV ONE (13:57)
[2020-09-29] MEDS ORDERED: MIDAZOLAM 2 MG/2 ML VIAL IV ONE (13:59)
[2020-09-29] MEDS ORDERED: LIDOCAINE 1% INJ 10MG/ML (20 ML MDV) SQ ONE (14:00)
--- NOTE | 2020-09-29 15:11 | P.GSCN ---
History of Present Illness History of present illness: 84-year-old gentleman, and came with acute chronic renal failure, patient to has a crease in BUN/creatinine consulted for placement of the dialysis catheter. Patient is some short of breath we discussed for placement of a temporary Manuel catheter patient agrees Neck examination neck is supple no bruit appreciated Chest chest is clear few crackles the lung bases first and second sound present Abdomen soft nontender Brachial radial femoral pulses are present plan is placement of dialysis catheter risk and complication discussed Past Medical History Past Medical History: Heart Failure, Hypertension, Prostate Disorder, Renal Disease Additional Past Medical History / Comment(s): Thrombocytemia/elevated platelets, CKD stage IV, anemia, BPH, gout R great toe, History of Any Multi-Drug Resistant Organisms: None Reported Past Surgical History: Tonsillectomy Additional Past Surgical History / Comment(s): BMA with biopsy, R hand index finger injury/partial amp, colonoscopy. Past Anesthesia/Blood Transfusion Reactions: No Reported Reaction Past Psychological History: No Psychological Hx Reported Additional Psychological History / Comment(s): Pt resides with his spouse. He is independent. Smoking Status: Never smoker Past Alcohol Use History: None Reported Past Drug Use History: None Reported - Past Family History Father Family Medical History: Cancer, Hypertension, Renal Disease Additional Family Medical History / Comment(s): Kidney Cancer Mother Family Medical History: No Reported History Additional Family Medical History / Comment(s): Mother was healthy Medications and Allergies Home Medications Medication Instructions Recorded Confirmed Type Sodium Bicarbonate Tab 1,300 mg PO TID 05/24/14 09/25/20 History Tamsulosin HCl [Flomax] 0.8 mg PO DAILY@1200 05/24/14 09/25/20 History Aspirin 81 mg PO DAILY 02/05/17 09/25/20 History allopurinoL [Zyloprim] 150 mg PO PC-LUNCH 02/05/17 09/25/20 History Furosemide [Lasix] 40 mg PO BID@0800,1200 10/20/18 09/25/20 History Agrylin 1mg 1 mg PO BID 09/25/20 09/25/20 History Calcium Carbonate [Calcium] 600 mg PO BID@1200,1700 09/25/20 09/25/20 History Epoetin Abraham-Epbx [Retacrit] 20,000 unit IJ WE 09/25/20 09/25/20 History Ergocalciferol [Vitamin D2 (1250 1,250 mcg PO WE 09/25/20 09/25/20 History Mcg = 40107 Iu)] NIFEdipine XL [Procardia Xl] 60 mg PO BID 09/25/20 09/25/20 History Nadolol [Corgard] 20 mg PO HS 09/25/20 09/25/20 History Nadolol [Corgard] 40 mg PO DAILY 09/25/20 09/25/20 History Allergies Allergy/AdvReac Type Severity Reaction Status Date / Time Iodinated Contrast Media AdvReac KIDNEY Verified 09/25/20 11:53 [Iodinated Contrast- Oral FAILURE and IV Dye] Surgical - Exam Vital Signs Temp Pulse Resp BP Pulse Ox 96.9 F L 60 18 162/68 93 L 09/25/20 11:15 09/25/20 11:15 09/25/20 11:15 09/25/20 11:15 09/25/20 11:15 Results - Labs 09/29/20 07:47 09/29/20 07:47 Abnormal Lab Results - Last 24 Hours (Table) 09/29/20 09/29/20 Range/Units 07:47 07:47 RBC 3.42 L (4.30-5.90) m/uL Hgb 9.8 L (13.0-17.5) gm/dL Hct 31.2 L (39.0-53.0) % RDW 17.7 H (11.5-15.5) % Plt Count 489 H (150-450) k/uL Potassium 5.6 H (3.5-5.1) mmol/L BUN 141 H* (9-20) mg/dL Creatinine 4.74 H (0.66-1.25) mg/dL Glucose 112 H (74-99) mg/dL Diabetes panel 09/29/20 Range/Units 07:47 Sodium 140 (137-145) mmol/L Potassium 5.6 H (3.5-5.1) mmol/L Chloride 102 (98-107) mmol/L Carbon Dioxide 25 (22-30) mmol/L BUN 141 H* (9-20) mg/dL Creatinine 4.74 H (0.66-1.25) mg/dL Glucose 112 H (74-99) mg/dL Calcium 9.4 (8.4-10.2) mg/dL Calcium panel 09/29/20 Range/Units 07:47 Calcium 9.4 (8.4-10.2) mg/dL Pituitary panel 09/29/20 Range/Units 07:47 Sodium 140 (137-145) mmol/L Potassium 5.6 H (3.5-5.1) mmol/L Chloride 102 (98-107) mmol/L Carbon Dioxide 25 (22-30) mmol/L BUN 141 H* (9-20) mg/dL Creatinine 4.74 H (0.66-1.25) mg/dL Glucose 112 H (74-99) mg/dL Calcium 9.4 (8.4-10.2) mg/dL Adrenal panel 09/29/20 Range/Units 07:47 Sodium 140 (137-145) mmol/L Potassium 5.6 H (3.5-5.1) mmol/L Chloride 102 (98-107) mmol/L Carbon Dioxide 25 (22-30) mmol/L BUN 141 H* (9-20) mg/dL Creatinine 4.74 H (0.66-1.25) mg/dL Glucose 112 H (74-99) mg/dL Calcium 9.4 (8.4-10.2) mg/dL
--- NOTE | 2020-09-29 15:13 | P.PCN ---
Description of Procedure: Preoperative diagnoses is acute chronic renal failure Postoperative same Procedure patient brought to the Irrigation Pump Installer right groin were prepped and draped applied in standard manner. Ultrasound-guided micropuncture and direct femoral vein. Micropuncture guidewire was passed and 4-Chilean dilator advanced top the guidewire. Then we passed a regular guidewire without any resistance. Dilator was advanced then we placed a dialysis catheter top the guidewire flushed with heparin saline and Hep-Lock and secured with 3-0 nylon. Dressing applied patient are to the procedure well
--- NOTE | 2020-09-29 15:22 | IR ---
EXAMINATION TYPE: IR cvc insert non tunneled DATE OF EXAM: 09/29/2020 COMPARISON: NONE HISTORY: Hemodialysis catheter placement Fluoroscopy support supplied to the referring clinician. See dictated report from vascular surgery, 0.5 minutes fluoroscopy time, 79 intraoperative images document the procedure
[2020-09-29 21:25] LABS: Hepatitis B Surface AB- Quant <3.5 mIU/mL; Hepatitis B Surface Antibody Non-Reactive (Non-Reactive); Hepatitis B Surface Antigen Non-Reactive (Non-Reactive)
--- NOTE | 2020-09-30 07:35 | XR ---
EXAMINATION TYPE: XR chest 1V portable DATE OF EXAM: 09/30/2020 CLINICAL HISTORY: Difficulty breathing and CHF progress study. TECHNIQUE: Single AP portable upright view of the chest is obtained. COMPARISON: Chest x-ray from 3 days earlier and older studies FINDINGS: The cardiac silhouette size is enlarged. Worsening left greater than right bibasilar opa cities. The osseous structures are intact. IMPRESSION: Findings consistent with CHF exacerbation, cardiomegaly with small left greater than rig ht bilateral pleural effusions and worsening interstitial edema. Cannot rule out underlying areas of acute infiltrate in the bases. Correlate clinically.
[2020-09-30] MEDS: HEPARIN SODIUM,PORCINE/PF 5,000 UNIT/0.5 ML SYRINGE SQ SCH ×2 (08:34→21:12)
[2020-09-30] MEDS: ASPIRIN 81 MG PO SCH (08:34)
[2020-09-30] MEDS: FUROSEMIDE 10 MG/ML 10 ML VIAL IV SCH (08:34)
[2020-09-30] MEDS: hydrALAZINE HCL 50 MG TAB PO SCH ×2 (08:34→21:12)
[2020-09-30] MEDS: ANAGRELIDE 1 MG PO SCH ×3 (08:35→21:12)
[2020-09-30 08:40] LABS: Calcium 9.2 mg/dL (8.4-10.2); Potassium 5.5 mmol/L (3.5-5.1)
--- NOTE | 2020-09-30 09:16 | P.PN ---
Subjective Progress Note Date: 09/30/20 Principal diagnosis: This is a 84-year-old male came in with shortness of breath, has chronic kidney disease stage IV with a baseline creatinine of about 3 and who has cardiorenal syndrome and has oliguria. Urine output documented at 525 mL for the last 24 hours. Currently he is on nasal cannula oxygen and is comfortable. He is short of breath at rest. Says he has a good appetite no abdominal pain no dizziness no chest pain. His last issue creatinine is 4.76, potassium is 5.5 Objective - Vital Signs Vital signs: Vital Signs Temp 98.1 F 09/30/20 08:32 Pulse 67 09/30/20 08:32 Resp 18 09/30/20 08:32 BP 151/66 09/30/20 08:32 Pulse Ox 97 09/30/20 08:32 Intake & Output 09/29/20 09/30/20 09/30/20 18:59 06:59 18:59 Intake Total 260 Output Total 550 Balance -290 Weight 76 kg Intake: IV 20 Oral 240 Output: Urine 550 Other: Voiding Method Incontinent Incontinent # Voids 2 1 On examination is awake alert oriented comfortable slightly short of breath on nasal cannula oxygen HEENT exam no JVP neck is supple no facial asymmetry Lungs are significant for bilateral coarse crackles as well as diminished air en try bilaterally Heart sounds are unremarkable for any murmur rub gallop Abdomen soft nontender Extremity examination reveals mild edema Neurologically awake alert oriented - Labs CBC & Chem 7: 09/29/20 07:47 09/30/20 07:44 Labs: Abnormal Lab Results - Last 24 Hours (Table) 09/30/20 Range/Units 07:44 Potassium 5.5 H (3.5-5.1) mmol/L BUN 151 H* (9-20) mg/dL Creatinine 4.76 H (0.66-1.25) mg/dL Glucose 104 H (74-99) mg/dL Assessment and Plan Plan: Impression 1. Acute kidney injury secondary to cardiorenal syndrome with congestive heart failure 2. Chronic kidney disease, stage IV nephrosclerosis. Baseline creatinine is about 2.8-3. His had chronic kidney disease since 2013 and his creatinine was 2.46. His ultrasound dated 2016 shows right kidney 8.7 and left kidney 8.6 cm 3. Mild hyperkalemia potassium is 5.5 secondary to chronic kidney disease and acute kidney injury 4. Anemia hemoglobin is 9.8, rule out an deficiency Condition 1. Proceed with dialysis today he has a femoral catheter on the right groin. 2. Obtain iron saturation 3. Continue Lasix 60 daily 8 4. Next dialysis will depend upon the staffing as there is a shortage. We will see if he has an emergency tomorrow for dialysis otherwise I'll be done on Mond ay
--- NOTE | 2020-09-30 11:49 | P.PN ---
Subjective Progress Note Date: 09/30/20 Principal diagnosis: Acute exacerbation of chronic diastolic congestive heart failure, valvular heart disease This is an 84-year-old male, who presented to the emergency room on September 25. He came with complaints of shortness of breath. He has a history of essential hypertension, chronic anemia, heart failure, and chronic kidney disease. The patient states that for 4 or 5 days prior to admission, he was having chest congestion, and shortness of breath. The shortness of breath was worse when he lays flat, and better when he sat up. He apparently went over to urgent care a nd they were concerned about the fact his oxygen saturations were low, and he was transferred to the emergency room where he was evaluated and admitted with a diagnosis of CHF. We are asked to see him only today. In addition, the patient had lower extremity edema, but denied any chest pain or chest discomfort. Currently, the patient's on 6 L nasal cannula, and is not receiving IV fluids. White count 8.4, hemoglobin 10.9, hematocrit 36.1, platelet count 596,000. PT, INR, and PTT are all normal. Sodium 141, potassium 5.1, chlorides 106, CO2 26, anion gap 9, BUN 112, and creatinine 3.89. N-terminal proBNP was 10,300. Chest x-ray was consistent with fluid overload/CHF. The patient is seen today 09/28/2020 in follow-up on the selective care unit. He is doing a bit better today compared to yesterday. He is currently on 6 L high flow nasal cannula. O2 saturation 91%. He is afebrile. Hemodynamically stable. Sodium 142. Potassium 4.3. BUN 127. Creatinine 4.14. He remains on Lasix 60 mg IV every 8 hours. Incontinent of urine. No accurate I&O. The patient is seen today the 2020 in follow-up on the selective care unit. He is currently resting quite comfortably in bed. Awake and alert in no acute distress. He remains on 6 L high flow nasal cannula. Current O2 saturation 92%. White count 7.5. Hemoglobin 9.8. Sodium 140. Potassium 5.6. BUN 141. Creatinine 4.74. He remains on Lasix 60 mg IV every 8 hours. The plan is for renal replacement therapy. Catheter to be placed by vascular. He remains on bronchodilators. Heparin for DVT prophylaxis. The patient is seen today 09/30/2020 in follow-up on the selective care unit. Awake and alert in no acute distress. He is requiring 10 L high flow nasal cannula now. Chest x-ray continues to show evidence of congestive heart failure with cardiomegaly and a small left greater than right pleural effusion with worsening interstitial edema. He is currently on Lasix 60 mg IV every 8 hours. He did have a right groin hemodialysis catheter placed yesterday. Plan is for hemodialysis today. Sodium 140. Potassium 5.5. Bicarb 25. BUN 151. Creatinine 4.76. He remains on bronchodilators. Heparin for DVT prophylaxis. Objective - Vital Signs Vital signs: Vital Signs Temp 98.1 F 09/30/20 08:32 Pulse 67 09/30/20 08:32 Resp 18 09/30/20 08:32 BP 151/66 09/30/20 08:32 Pulse Ox 97 09/30/20 08:32 Intake & Output 09/29/20 09/30/20 09/30/20 18:59 06:59 18:59 Intake Total 260 480 Output Total 550 Balance -290 480 Weight 76 kg Intake: IV 20 Oral 240 480 Output: Urine 550 Other: Voiding Method Incontinent Incontinent Incontinent # Voids 2 1 - Exam GENERAL EXAM: Alert, pleasant 84-year-old gentleman, on 10 L nasal cannula, comfortable in no apparent distress. HEAD: Normocephalic. EYES: Normal reaction of pupils, equal size. NOSE: Clear with pink turbinates. THROAT: No erythema or exudates. NECK: No masses, no JVD. CHEST: No chest wall deformity. LUNGS: Equal air entry with crackles in the bilateral bases. CVS: S1 and S2 normal with no audible murmur, regular rhythm. ABDOMEN: No hepatosplenomegaly, normal bowel sounds, no guarding or rigidity. SPINE: No scoliosis or deformity SKIN: No rashes CENTRAL NERVOUS SYSTEM: No focal deficits, tone is normal in all 4 extremities. EXTREMITIES: There is 1-2+ peripheral edema. No clubbing, no cyanosis. Peripheral pulses are intact. - Labs CBC & Chem 7: 09/29/20 07:47 09/30/20 07:44 Labs: Abnormal Lab Results - Last 24 Hours (Table) 09/30/20 Range/Units 07:44 Potassium 5.5 H (3.5-5.1) mmol/L BUN 151 H* (9-20) mg/dL Creatinine 4.76 H (0.66-1.25) mg/dL Glucose 104 H (74-99) mg/dL Assessment and Plan Assessment: 1 Acute hypoxemic respiratory failure secondary to an acute exacerbation of chronic diastolic heart disease 2 Valvular heart disease 3 Chronic kidney disease with worsening renal function. Current creatinine 4.76 4 History of hypertension 5 Gout 6 Chronic anemia 7 Lifelong nonsmoker. Plan: The patient was seen and evaluated by Dr. Bay Chest x-ray and labs reviewed We will check a pro-calcitonin Continue bronchodilators Plan is for hemodialysis today Continue diuretics Titrate down the FiO2 as tolerated Follow-up chest x-ray in a.m. We will continue to follow I, the cosigning physician, performed a history & physical examination of the patient. Lungs sounds crackles in the bilateral posterior bases. Maintaining O2 saturations in the 90s on 10 L high flow nasal cannula. I discussed the assessment and plan of care with my nurse practitioner, Olesya Payne. I attest to the above note as dictated by her.
[2020-09-30 12:21] LABS: % Iron Saturation 10.94 (15.00-50.00)
[2020-09-30] MEDS ORDERED: FUROSEMIDE 100 MG in SODIUM CHLORIDE 0.9% 90 ML IV SCH (12:30)
--- NOTE | 2020-09-30 13:18 | P.PN ---
Subjective Progress Note Date: 09/30/20 HISTORY OF PRESENT ILLNESS: HISTORY OF PRESENTING ILLNESS This is a pleasant 84-year-old male past medical history significant for peripheral vascular disease, chronic kidney disease, valvular heart disease, pulmonary hypertension and hypertension. He follows in the office with Dr. Joya. We have been asked to see in consultation for heart failure. He states for the previous 1-week he has been waking up at night feeling congested and short of breath. He has also noticed increased lower extremity swelling. He was in the office yesterday to have a routine echo performed when he left he started feeling short of breath and wheezy. He went to urgent care and was found to be hypoxic and was sent here for further evaluation. On arrival to ER his pulse ox was 93%. He denies chest pain, dizziness or palpitations. He follows regularly with a retail customer service representative out of town. He states he still urinates frequently but small amounts. 09/29/2020 Pt is seen and examined sitting up in bed. He continues to feel short of breath and is wheezing. Blood pressure 144/55 heart rate 72 afebrile and maintaining oxygen saturation on nasal cannula. Still requiring 6 liters. Laboratory data reviewed, sodium 140, potassium 5.6, creatinine 4.74. 09/30/2020 Patient examined this morning at the bedside. Patient denies chest pain or pressure. He remains on IV Lasix 60 mg every 8 hours. Patient states she is scheduled to have his first dialysis session today. He is on 10 L high flow nasal cannula with oxygen saturations greater than 92%. Blood pressure 140/56. Heart rate in the 70s. BUN 151. Creatinine 4.76. PHYSICAL EXAM: VITAL SIGNS: Reviewed. GENERAL: Well-developed in no acute distress. NECK: Supple. No JVD or thyromegaly LUNGS: Respirations even and unlabored. Lungs with bibasilar rales left greater than right HEART: Regular rate and rhythm. S1 and S2 heard. Systolic murmur noted. EXTREMITIES: Normal range of motion. No clubbing or cyanosis. Peripheral pulses intact. Trace bilateral lower extremity edema ASSESSMENT: Acute on chronic diastolic heart failure Acute on chronic kidney disease Hypertension Valvular heart disease PLAN: Continue current cardiac medications Continue IV Lasix Patient to undergo hemodialysis today Further recommendations pending patient course Nurse practitioner note has been reviewed by physician. Signing provider agrees with the documented findings, assessment, and plan of care. Objective - Vital Signs Vital signs: Vital Signs Temp 98.0 F 09/30/20 12:05 Pulse 73 09/30/20 12:05 Resp 16 09/30/20 12:05 BP 148/56 09/30/20 12:05 Pulse Ox 95 09/30/20 12:05 Intake & Output 09/29/20 09/30/20 09/30/20 18:59 06:59 18:59 Intake Total 260 480 Output Total 550 Balance -290 480 Weight 76 kg Intake: IV 20 Oral 240 480 Output: Urine 550 Other: Voiding Method Incontinent Incontinent Incontinent # Voids 2 1 - Labs CBC & Chem 7: 09/29/20 07:47 09/30/20 07:44 Labs: Abnormal Lab Results - Last 24 Hours (Table) 09/30/20 09/30/20 Range/Units 07:44 07:44 Potassium 5.5 H (3.5-5.1) mmol/L BUN 151 H* (9-20) mg/dL Creatinine 4.76 H (0.66-1.25) mg/dL Glucose 104 H (74-99) mg/dL Iron 21 L (65-175) ug/dL TIBC 192 L (228-460) ug/dL % Saturation 10.94 L (15.00-50.00)
[2020-09-30] MEDS: allopurinoL 300 MG TAB PO SCH (13:19)
[2020-09-30] MEDS: CALCIUM CARB-VIT D 500 MG-5 MCG TAB PO SCH ×2 (13:19→18:07)
[2020-09-30] MEDS: TAMSULOSIN 0.4 MG CAP.ER.24H PO SCH (13:19)
--- NOTE | 2020-09-30 14:57 | P.PN ---
Subjective Progress Note Date: 09/30/20 84-year-old male came in with comments of shortness of breath or which started about couple days ago feels congested has been waking up for about a week at nighttime. Denied any clear history of orthopnea paroxysmal nocturnal dyspnea in spite of above-mentioned history. Patient doesn't have any history of COPD patient appears to have had chronic diastolic dysfunction in the past. Patient does have pedal edema does have elevated BNP and chest x-ray is consistent with pulmonary edema. Patient doesn't use any oxygen at home presently on 3 L of of oxygen. Patient usually uses 40 twice a day of the oral Lasix. Patient has chronic kidney disease stage IV with baseline creatinine around 3. Patient does have elevated potassium of 5.7 which will be monitored troponin is negative EKG sinus rhythm with frequent PVCs with right bundle branch block and left anterior fascicular block. 09/26/2020 Patient the pedal edema. Straight improved compared to yesterday. Patient fairly feels the same as yesterday. Unable to clearly assess the urine output because of his incontinence. Patient remains on IV Lasix was evaluated by cardiology, there is marginal improvement in serum creatinine from 3.7-3.49. Patient remained short of breath. 09/27/2020 The patient was pretty status is bit worse patient is on 60 mg twice a day of IV Lasix in spite of which patient didn't have any significant improvement in clinical is pretty status and requiring more oxygen because of which I'm consulting nephrology for recommendations regarding Lasix and diuretic therapy patient has wheezing on exam, or feels more short of breath doesn't have any history of COPD patient appears to have cardiac Asthma pulmonary was consulted because of not improvement in his respiratory status. Unable to assess the input and output because of his incontinence patient probably will benefit from Drake catheter. Patient doesn't have any much of pedal edema today. 09/28/2020 Since wheezing improved patient mentions and 6 L of oxygen. Patient was evaluated by nephrology patient creatinine continued to get worse. Patient will be started on hemodialysis. 09/29/2020 Patient 6 L of oxygen. Patient will undergo hemodialysis catheter placement today. he will undergo hemodialysis either today or tomorrow 09/30/2020 Patient seen on reevaluation, doesn't appear to be in any acute distress although his oxygen requirements have increased to 10 L high flow nasal cannula from 6 L yesterday. He was planned to begin hemodialysis treatments today, although due to staffing sorted she is unable to receive dialysis as he does not make criteria for emergent dialysis at this time. He has been started on Lasix drip at 10 an hour. Creatinine 4.76, BUN 151. Morning and Constitutional: Denied any fatigue denied any fever. Cardio vascular: denied any chest pain, palpitations Gastrointestinal denied any nausea vomiting Pulmonary: As mentioned in HPI Neurologic denied any new focal deficits Objective - Vital Signs Vital signs: Vital Signs Temp 98.0 F 09/30/20 12:05 Pulse 73 09/30/20 14:00 Resp 16 09/30/20 14:00 BP 148/56 09/30/20 12:05 Pulse Ox 95 09/30/20 12:05 Intake & Output 09/29/20 09/30/20 09/30/20 18:59 06:59 18:59 Intake Total 260 480 Output Total 550 Balance -290 480 Weight 76 kg Intake: IV 20 Oral 240 480 Output: Urine 550 Other: Voiding Method Incontinent Incontinent Incontinent # Voids 2 1 - Exam PHYSICAL EXAMINATION: GENERAL: The patient is alert and oriented x3, not in any acute distress. Well developed, well nourished. HEENT: Pupils are round and equally reacting to light. EOMI. No scleral icterus. No conjunctival pallor. Normocephalic, atraumatic. No pharyngeal erythema. No thyromegaly. CARDIOVASCULAR: S1 and S2 present. No murmurs, rubs, or gallops. PULMONARY: Clear to auscultation bilaterally no wheezes or rales ABDOMEN: Soft, nontender, nondistended, normoactive bowel sounds. No palpable organomegaly. MUSCULOSKELETAL: No joint swelling or deformity. EXTREMITIES: No cyanosis, clubbing, bilateral pitting pedal edema, which improved compared to yesterday NEUROLOGICAL: Gross neurological examination did not reveal any focal deficits. SKIN: No rashes. - Labs CBC & Chem 7: 09/29/20 07:47 09/30/20 07:44 Labs: Abnormal Lab Results - Last 24 Hours (Table) 09/30/20 09/30/20 09/30/20 Range/Units 07:44 07:44 07:44 Potassium 5.5 H (3.5-5.1) mmol/L BUN 151 H* (9-20) mg/dL Creatinine 4.76 H (0.66-1.25) mg/dL Glucose 104 H (74-99) mg/dL Iron 21 L (65-175) ug/dL TIBC 192 L (228-460) ug/dL % Saturation 10.94 L (15.00-50.00) Procalcitonin 0.43 H (0.02-0.09) ng/mL Assessment and Plan Assessment: Plan: -Acute hypoxic respiratory failure: Secondary to congestive heart failure exacerbation patient probably has chronic diastolic dysfunction with acute exacerbation. He is unable to have hemodialysis today due to staffing shortage , his oxygen requirements have increased to 10 L. Is been started on Lasix drip at 10 by nephrology, and as of now is planned for hemodialysis on Friday unless he needs it emergently. 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
[2020-10-01] MEDS: FUROSEMIDE 10 MG/ML 10 ML VIAL IV SCH ×2 (00:17→08:23)
--- NOTE | 2020-10-01 07:00 | XR ---
EXAMINATION TYPE: XR chest 1V portable DATE OF EXAM: 10/01/2020 CLINICAL HISTORY: Difficulty breathing and CHF progress study. TECHNIQUE: Single AP portable upright view of the chest is obtained. COMPARISON: Chest x-ray from one day earlier and older studies. FINDINGS: The cardiac silhouette size is enlarged. Persistent left greater than right bibasilar opac ities silhouetting portions of left heart border and hemidiaphragm. The osseous structures are intact . IMPRESSION: Cardiomegaly with probable small left pleural effusion and mild central vascular congest ion redemonstrated. Suspect left greater than right bibasilar atelectasis and/or infiltrate. No signi ficant change from one day earlier.
[2020-10-01] MEDS: HEPARIN SODIUM,PORCINE/PF 5,000 UNIT/0.5 ML SYRINGE SQ SCH ×2 (08:22→21:24)
[2020-10-01] MEDS: ASPIRIN 81 MG PO SCH (08:22)
[2020-10-01] MEDS: hydrALAZINE HCL 50 MG TAB PO SCH ×2 (08:23→21:25)
[2020-10-01] MEDS: ANAGRELIDE 1 MG PO SCH ×3 (08:23→21:25)
--- NOTE | 2020-10-01 10:52 | P.PN ---
Subjective Progress Note Date: 10/01/20 HISTORY OF PRESENT ILLNESS: HISTORY OF PRESENTING ILLNESS This is a pleasant 84-year-old male past medical history significant for peripheral vascular disease, chronic kidney disease, valvular heart disease, pulmonary hypertension and hypertension. He follows in the office with Dr. Joya. We have been asked to see in consultation for heart failure. He states for the previous 1-week he has been waking up at night feeling congested and short of breath. He has also noticed increased lower extremity swelling. He was in the office yesterday to have a routine echo performed when he left he started feeling short of breath and wheezy. He went to urgent care and was found to be hypoxic and was sent here for further evaluation. On arrival to ER his pulse ox was 93%. He denies chest pain, dizziness or palpitations. He follows regularly with a dish network installer out of town. He states he still urinates frequently but small amounts. 09/29/2020 Pt is seen and examined sitting up in bed. He continues to feel short of breath and is wheezing. Blood pressure 144/55 heart rate 72 afebrile and maintaining oxygen saturation on nasal cannula. Still requiring 6 liters. Laboratory data reviewed, sodium 140, potassium 5.6, creatinine 4.74. 09/30/2020 Patient examined this morning at the bedside. Patient denies chest pain or pressure. He remains on IV Lasix 60 mg every 8 hours. Patient states she is scheduled to have his first dialysis session today. He is on 10 L high flow nasal cannula with oxygen saturations greater than 92%. Blood pressure 140/56. Heart rate in the 70s. BUN 151. Creatinine 4.76. 10/01/2020 Patient examined this morning at the bedside. Patient denies chest pain or pressure. He reports mild SOB this morning. He remains on 10 L high flow nasal cannula. Patient received his first hemodialysis session yesterday with removal of 2 L. BUN 113. Creatinine 4.05. Blood pressure 148/74. Heart rate in the 70s. He is afebrile. PHYSICAL EXAM: VITAL SIGNS: Reviewed. GENERAL: Well-developed in no acute distress. NECK: Supple. No JVD or thyromegaly LUNGS: Respirations even and unlabored. Lungs with bibasilar rales. HEART: Regular rate and rhythm. S1 and S2 heard. Systolic murmur noted. EXTREMITIES: Normal range of motion. No clubbing or cyanosis. Peripheral pulses intact. Trace bilateral lower extremity edema ASSESSMENT: Acute on chronic diastolic heart failure Acute on chronic kidney disease Hypertension Valvular heart disease PLAN: Continue current cardiac medications Transition patient to oral Lasix 60 mg twice a day Monitor kidney function Daily weights Accurate I&O Continue hemodialysis per nephrology. Patient scheduled for hemodialysis martha ortiz. Further recommendations pending patient course Nurse practitioner note has been reviewed by physician. Signing provider agrees with the documented findings, assessment, and plan of care. Objective - Vital Signs Vital signs: Vital Signs Temp 98.0 F 10/01/20 08:21 Pulse 68 10/01/20 08:21 Resp 18 10/01/20 08:21 BP 148/74 10/01/20 08:21 Pulse Ox 91 L 10/01/20 08:21 Intake & Output 09/30/20 10/01/20 10/01/20 18:59 06:59 18:59 Intake Total 747.167 180 Output Total 1999 425 100 Balance -1252.833 -425 80 Weight 74.6 kg Intake: Intake, IV Titration 27.167 Amount Furosemide 100 mg In 27.167 Sodium Chloride 0.9% 90 ml @ 10 MG/HR 10 mls/hr IV .Q10H [facility] Rx#: [id number] Oral 720 180 Output: Urine 425 100 Hemodialysis 2000 Other: Voiding Method Incontinent Incontinent Incontinent # Voids 1 - Labs CBC & Chem 7: 09/29/20 07:47 10/01/20 07:05 Labs: Abnormal Lab Results - Last 24 Hours (Table) 09/30/20 09/30/20 10/01/20 Range/Units 07:44 07:44 07:05 BUN 113 H* (9-20) mg/dL Creatinine 4.05 H (0.66-1.25) mg/dL Iron 21 L (65-175) ug/dL TIBC 192 L (228-460) ug/dL % Saturation 10.94 L (15.00-50.00) Procalcitonin 0.43 H (0.02-0.09) ng/mL
--- NOTE | 2020-10-01 12:09 | P.PN ---
Subjective Progress Note Date: 10/01/20 Principal diagnosis: This is a 84-year-old male came in with shortness of breath, has chronic kidney disease stage IV with a baseline creatinine of about 3 and who has cardiorenal syndrome and has oliguria, he is on dialysis now. Last dialysis yesterday 09/30/2020, 2000 mL ultrafiltration. Echocardiogram as an outpatient showed ejection fraction of 55% moderate mitral regurg and tricuspid regurg and pulmonary hypertension with a right ventricular systolic pressure of 59, as per the cardiology note. Urine output is documented at 425 mL for the last 24 hours. He does complain of shortness of breath on exertion Currently he is on nasal cannula oxygen and is comfortable. . Says he has a good appetite no abdominal pain no dizziness no chest pain. Objective - Vital Signs Vital signs: Vital Signs Temp 97.9 F 10/01/20 12:01 Pulse 72 10/01/20 12:01 Resp 18 10/01/20 12:01 BP 156/67 10/01/20 12:01 Pulse Ox 92 L 10/01/20 12:01 Intake & Output 09/30/20 10/01/20 10/01/20 18:59 06:59 18:59 Intake Total 747.167 180 Output Total 1999 425 100 Balance -1252.833 -425 80 Weight 74.6 kg Intake: Intake, IV Titration 27.167 Amount Furosemide 100 mg In 27.167 Sodium Chloride 0.9% 90 ml @ 10 MG/HR 10 mls/hr IV .Q10H [facility] Rx#: [id number] Oral 720 180 Output: Urine 425 100 Hemodialysis 1999 Other: Voiding Method Incontinent Incontinent Incontinent # Voids 1 # Bowel Movements 1 On examination is awake alert oriented comfortable cheerful HEENT exam no JVP neck is supple no facial asymmetry Lungs are clear to auscultation good air entry bilaterally although a chest x- ray shows significant left-sided fluid and or infiltrates Heart sounds unremarkable for any murmur rub gallop Abdomen soft nontender Extremity exam reveals trace edema Neurologically awake alert oriented cheerful - Labs CBC & Chem 7: 09/29/20 07:47 10/01/20 07:05 Labs: Abnormal Lab Results - Last 24 Hours (Table) 09/30/20 09/30/20 10/01/20 Range/Units 07:44 07:44 07:05 BUN 113 H* (9-20) mg/dL Creatinine 4.05 H (0.66-1.25) mg/dL Iron 21 L (65-175) ug/dL TIBC 192 L (228-460) ug/dL % Saturation 10.94 L (15.00-50.00) Procalcitonin 0.43 H (0.02-0.09) ng/mL Assessment and Plan Plan: Impression 1. Acute kidney injury secondary to cardiorenal syndrome with congestive heart failure, hemodialysis dependent last dialysis was yesterday and 2000 mL ultrafiltrate at. Urine output is 4 25 mL 2. Chronic kidney disease, stage IV nephrosclerosis. Baseline creatinine is about 2.8-3. His had chronic kidney disease since 2013 and his creatinine was 2.46. His ultrasound dated 2016 shows right kidney 8.7 and left kidney 8.6 cm 3. Mild hyperkalemia potassium is 5.5 secondary to chronic kidney disease and acute kidney injury. Resolved potassium is 5 this morning 4. Anemia hemoglobin is 9.8 as of 09/29/2020, secondary to toxic ATN and deficiency. 5. Iron saturation is 10% dated 09/30/2020 Condition 1. IV Ferrlecit 125 mg daily for 3 days. 2. Will dialyze him tomorrow 3. Continue Lasix 60 daily 8
[2020-10-01] MEDS: CALCIUM CARB-VIT D 500 MG-5 MCG TAB PO SCH ×2 (13:10→15:55)
[2020-10-01] MEDS: SODIUM FERRIC GLUCONAT-SUCROSE 125 MG in SODIUM CHLORIDE 0.9% 100 ML IVPB SCH (13:10)
[2020-10-01] MEDS: TAMSULOSIN 0.4 MG CAP.ER.24H PO SCH (13:10)
[2020-10-01] MEDS: allopurinoL 300 MG TAB PO SCH (13:10)
--- NOTE | 2020-10-01 13:25 | P.PN ---
Subjective Progress Note Date: 10/01/20 Principal diagnosis: Acute exacerbation of chronic diastolic congestive heart failure, valvular heart disease This is an 84-year-old male, who presented to the emergency room on September 25. He came with complaints of shortness of breath. He has a history of essential hypertension, chronic anemia, heart failure, and chronic kidney disease. The patient states that for 4 or 5 days prior to admission, he was having chest congestion, and shortness of breath. The shortness of breath was worse when he lays flat, and better when he sat up. He apparently went over to urgent care a nd they were concerned about the fact his oxygen saturations were low, and he was transferred to the emergency room where he was evaluated and admitted with a diagnosis of CHF. We are asked to see him only today. In addition, the patient had lower extremity edema, but denied any chest pain or chest discomfort. Currently, the patient's on 6 L nasal cannula, and is not receiving IV fluids. White count 8.4, hemoglobin 10.9, hematocrit 36.1, platelet count 596,000. PT, INR, and PTT are all normal. Sodium 141, potassium 5.1, chlorides 106, CO2 26, anion gap 9, BUN 112, and creatinine 3.89. N-terminal proBNP was 10,300. Chest x-ray was consistent with fluid overload/CHF. The patient is seen today 09/28/2020 in follow-up on the selective care unit. He is doing a bit better today compared to yesterday. He is currently on 6 L high flow nasal cannula. O2 saturation 91%. He is afebrile. Hemodynamically stable. Sodium 142. Potassium 4.3. BUN 127. Creatinine 4.14. He remains on Lasix 60 mg IV every 8 hours. Incontinent of urine. No accurate I&O. The patient is seen today the 2020 in follow-up on the selective care unit. He is currently resting quite comfortably in bed. Awake and alert in no acute distress. He remains on 6 L high flow nasal cannula. Current O2 saturation 92%. White count 7.5. Hemoglobin 9.8. Sodium 140. Potassium 5.6. BUN 141. Creatinine 4.74. He remains on Lasix 60 mg IV every 8 hours. The plan is for renal replacement therapy. Catheter to be placed by vascular. He remains on bronchodilators. Heparin for DVT prophylaxis. The patient is seen today 09/30/2020 in follow-up on the selective care unit. Awake and alert in no acute distress. He is requiring 10 L high flow nasal cannula now. Chest x-ray continues to show evidence of congestive heart failure with cardiomegaly and a small left greater than right pleural effusion with worsening interstitial edema. He is currently on Lasix 60 mg IV every 8 hours. He did have a right groin hemodialysis catheter placed yesterday. Plan is for hemodialysis today. Sodium 140. Potassium 5.5. Bicarb 25. BUN 151. Creatinine 4.76. He remains on bronchodilators. Heparin for DVT prophylaxis. The patient is seen today 10/01/2020 in follow-up on the selective care unit. He is currently resting comfortably in bed. Awake and alert in no acute distress. He is still requiring 10 L high flow nasal cannula to maintain O2 saturations in the 90s. Chest x-ray reveals cardiomegaly with probable small left pleural effusion and mild central vascular congestion. Left greater than right bibasilar atelectasis/infiltrate. Sodium 142. Potassium 5.0. BUN 113. Creatinine 4.05. Remains on Lasix 60 mg IV every 8 hours. He did receive dialysis yesterday with 2 L of ultrafiltration. Continues to make urine. He remains on bronchodilators. Heparin for DVT prophylaxis. Objective - Vital Signs Vital signs: Vital Signs Temp 97.9 F 10/01/20 12:01 Pulse 72 10/01/20 12:01 Resp 18 10/01/20 12:01 BP 156/67 10/01/20 12:01 Pulse Ox 92 L 10/01/20 12:01 Intake & Output 09/30/20 10/01/20 10/01/20 18:59 06:59 18:59 Intake Total 747.167 180 Output Total 1999 425 100 Balance -1252.833 -425 80 Weight 74.6 kg Intake: Intake, IV Titration 27.167 Amount Furosemide 100 mg In 27.167 Sodium Chloride 0.9% 90 ml @ 10 MG/HR 10 mls/hr IV .Q10H [facility] Rx#: [id number] Oral 720 180 Output: Urine 425 100 Hemodialysis 1999 Other: Voiding Method Incontinent Incontinent Incontinent # Voids 1 # Bowel Movements 1 - Exam GENERAL EXAM: Alert, pleasant 85-year-old gentleman, on 10 L nasal cannula, comfortable in no apparent distress. HEAD: Normocephalic. EYES: Normal reaction of pupils, equal size. NOSE: Clear with pink turbinates. THROAT: No erythema or exudates. NECK: No masses, no JVD. CHEST: No chest wall deformity. LUNGS: Equal air entry with crackles in the bilateral bases. CVS: S1 and S2 normal with no audible murmur, regular rhythm. ABDOMEN: No hepatosplenomegaly, normal bowel sounds, no guarding or rigidity. SPINE: No scoliosis or deformity SKIN: No rashes CENTRAL NERVOUS SYSTEM: No focal deficits, tone is normal in all 4 extremities. EXTREMITIES: There is 1-2+ peripheral edema. No clubbing, no cyanosis. Peripheral pulses are intact. - Labs CBC & Chem 7: 09/29/20 07:47 10/01/20 07:05 Labs: Abnormal Lab Results - Last 24 Hours (Table) 09/30/20 10/01/20 Range/Units 07:44 07:05 BUN 113 H* (9-20) mg/dL Creatinine 4.05 H (0.66-1.25) mg/dL Procalcitonin 0.43 H (0.02-0.09) ng/mL Assessment and Plan Assessment: 1 Acute hypoxemic respiratory failure secondary to an acute exacerbation of chronic diastolic heart disease 2 Valvular heart disease 3 Chronic kidney disease with worsening renal function. Current creatinine 4.05 and receiving renal replacement therapy 4 History of hypertension 5 Gout 6 Chronic anemia 7 Lifelong nonsmoker Plan: The patient was seen and evaluated by Dr. Bay Chest x-ray and labs reviewed Continue bronchodilators Plan is for hemodialysis again tomorrow Continue diuretics Titrate down the FiO2 as tolerated We will continue to follow I, the cosigning physician, performed a history & physical examination of the patient. Lungs sounds crackles in the bilateral posterior bases. Maintaining O2 saturations in the 90s on 10 L high flow nasal cannula. I discussed the assessment and plan of care with my nurse practitioner, Olesya Payne. I attest to the above note as dictated by her.
--- NOTE | 2020-10-01 14:37 | P.PN ---
Subjective Progress Note Date: 10/01/20 84-year-old male came in with comments of shortness of breath or which started about couple days ago feels congested has been waking up for about a week at nighttime. Denied any clear history of orthopnea paroxysmal nocturnal dyspnea in spite of above-mentioned history. Patient doesn't have any history of COPD patient appears to have had chronic diastolic dysfunction in the past. Patient does have pedal edema does have elevated BNP and chest x-ray is consistent with pulmonary edema. Patient doesn't use any oxygen at home presently on 3 L of of oxygen. Patient usually uses 40 twice a day of the oral Lasix. Patient has chronic kidney disease stage IV with baseline creatinine around 3. Patient does have elevated potassium of 5.7 which will be monitored troponin is negative EKG sinus rhythm with frequent PVCs with right bundle branch block and left anterior fascicular block. 09/26/2020 Patient the pedal edema. Straight improved compared to yesterday. Patient fairly feels the same as yesterday. Unable to clearly assess the urine output because of his incontinence. Patient remains on IV Lasix was evaluated by cardiology, there is marginal improvement in serum creatinine from 3.7-3.49. Patient remained short of breath. 09/27/2020 The patient was pretty status is bit worse patient is on 60 mg twice a day of IV Lasix in spite of which patient didn't have any significant improvement in clinical is pretty status and requiring more oxygen because of which I'm consulting nephrology for recommendations regarding Lasix and diuretic therapy patient has wheezing on exam, or feels more short of breath doesn't have any history of COPD patient appears to have cardiac Asthma pulmonary was consulted because of not improvement in his respiratory status. Unable to assess the input and output because of his incontinence patient probably will benefit from Drake catheter. Patient doesn't have any much of pedal edema today. 09/28/2020 Since wheezing improved patient mentions and 6 L of oxygen. Patient was evaluated by nephrology patient creatinine continued to get worse. Patient will be started on hemodialysis. 09/29/2020 Patient 6 L of oxygen. Patient will undergo hemodialysis catheter placement today. he will undergo hemodialysis either today or tomorrow 09/30/2020 Patient seen on reevaluation, doesn't appear to be in any acute distress although his oxygen requirements have increased to 10 L high flow nasal cannula from 6 L yesterday. He was planned to begin hemodialysis treatments today, although due to staffing sorted she is unable to receive dialysis as he does not make criteria for emergent dialysis at this time. He has been started on Lasix drip at 10 an hour. Creatinine 4.76, BUN 151. Morning and 10/01/2020 Patient seen on follow-up, did receive hemodialysis yesterday, is making urine 325 mL urine output today. Creatinine 4.05, BUN 113, potassium normalized 5.0. Remains on 10 L high flow nasal cannula saturating 92%, no fever. Chest x-ray today showing small left-sided pleural effusion and mild central vascular congestion, no significant change from prior. It is patient's birthday today, he is sitting up in chair with spouse at bedside Constitutional: Denied any fatigue denied any fever. Cardio vascular: denied any chest pain, palpitations Gastrointestinal denied any nausea vomiting Pulmonary: As mentioned in HPI Neurologic denied any new focal deficits Objective - Vital Signs Vital signs: Vital Signs Temp 97.9 F 10/01/20 12:01 Pulse 72 10/01/20 13:19 Resp 18 10/01/20 13:19 BP 156/67 10/01/20 12:01 Pulse Ox 92 L 10/01/20 12:01 Intake & Output 09/30/20 10/01/20 10/01/20 18:59 06:59 18:59 Intake Total 747.167 180 Output Total 1999 425 100 Balance -1252.833 -425 80 Weight 74.6 kg Intake: Intake, IV Titration 27.167 Amount Furosemide 100 mg In 27.167 Sodium Chloride 0.9% 90 ml @ 10 MG/HR 10 mls/hr IV .Q10H ON LICENSE OF [facility] Rx#: [id number] Oral 720 180 Output: Urine 425 100 Hemodialysis 1999 Other: Voiding Method Incontinent Incontinent Incontinent # Voids 1 # Bowel Movements 1 - Exam PHYSICAL EXAMINATION: GENERAL: The patient is alert and oriented x3, not in any acute distress. Well developed, well nourished. HEENT: Pupils are round and equally reacting to light. EOMI. No scleral icterus. No conjunctival pallor. Normocephalic, atraumatic. No pharyngeal erythema. No thyromegaly. CARDIOVASCULAR: S1 and S2 present. No murmurs, rubs, or gallops. PULMONARY: Clear to auscultation bilaterally no wheezes or rales ABDOMEN: Soft, nontender, nondistended, normoactive bowel sounds. No palpable organomegaly. MUSCULOSKELETAL: No joint swelling or deformity. EXTREMITIES: No cyanosis, clubbing, bilateral pitting pedal edema, which improved compared to yesterday NEUROLOGICAL: Gross neurological examination did not reveal any focal deficits. SKIN: No rashes. - Labs CBC & Chem 7: 09/29/20 07:47 10/01/20 07:05 Labs: Abnormal Lab Results - Last 24 Hours (Table) 10/01/20 Range/Units 07:05 BUN 113 H* (9-20) mg/dL Creatinine 4.05 H (0.66-1.25) mg/dL Assessment and Plan Assessment: Plan: -Acute hypoxic respiratory failure: Secondary to congestive heart failure exacerbation patient probably has chronic diastolic dysfunction with acute exacerbation. Patient was dialyzed yesterday, is on 60 oral Lasix twice daily, 300 miles of urine output today. 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 There is a competent of acute renal failure secondary to possible cardiorenal syndrome: Dialyzed on 09/30 and continued on oral Lasix 60 twice daily, nephrology following. 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
[2020-10-01] MEDS: FUROSEMIDE 20 MG TAB PO SCH (15:55)
[2020-10-02] MEDS: HEPARIN SODIUM,PORCINE/PF 5,000 UNIT/0.5 ML SYRINGE SQ SCH ×2 (07:55→21:28)
[2020-10-02] MEDS: ASPIRIN 81 MG PO SCH (07:55)
[2020-10-02] MEDS: ANAGRELIDE 1 MG PO SCH ×3 (07:55→21:29)
[2020-10-02 08:08] LABS: Calcium 9.4 mg/dL (8.4-10.2); Potassium 5.1 mmol/L (3.5-5.1)
[2020-10-02] MEDS: SODIUM FERRIC GLUCONAT-SUCROSE 125 MG in SODIUM CHLORIDE 0.9% 100 ML IVPB SCH (09:20)
--- NOTE | 2020-10-02 11:50 | P.PN ---
Subjective Patient is seen in follow-up for acute kidney injury on chronic kidney disease, currently hemodialysis dependent. Maintained on oral Lasix. States he is making urine but not a significant amount. Currently on 15 L high flow cannula. Does feel dyspneic at times. Oral intake fair. Vital signs are stable. General: The patient appeared well nourished and normally developed. HEENT: Head exam is unremarkable. On nasal cannula. LUNGS: Breath sounds decreased. HEART: Rate and Rhythm are regular. ABDOMEN: Soft, no distention. EXTREMITITES: Trace edema. Objective - Vital Signs Vital signs: Vital Signs Temp 97.7 F 10/02/20 11:32 Pulse 69 10/02/20 11:32 Resp 18 10/02/20 11:32 BP 162/72 10/02/20 11:32 Pulse Ox 91 L 10/02/20 11:32 Intake & Output 10/01/20 10/02/20 10/02/20 18:59 06:59 18:59 Intake Total 660 118 Output Total 450 350 Balance 210 -350 118 Weight 75.7 kg Intake: Oral 660 118 Output: Urine 450 350 Other: Voiding Method Incontinent Urinal Urinal Diaper Diaper Incontinent Incontinent # Voids 1 # Bowel Movements 1 - Labs CBC & Chem 7: 09/29/20 07:47 10/02/20 06:57 Labs: Abnormal Lab Results - Last 24 Hours (Table) 10/02/20 Range/Units 06:57 BUN 131 H* (9-20) mg/dL Creatinine 3.95 H (0.66-1.25) mg/dL Glucose 104 H (74-99) mg/dL Assessment and Plan Plan: Assessment: 1. Acute kidney injury secondary to ATN secondary to cardiorenal syndrome. Currently hemodialysis dependent. 2. Chronic kidney disease stage IV with baseline creatinine near 3. 3. Acute on chronic diastolic CHF with moderate mitral regurgitation and mild to moderate tricuspid regurgitation and pulmonary hypertension. 4. Volume overload. 5. Hyperkalemia secondary to acute kidney injury. Improved postdialysis. 6. Anemia of chronic disease. Iron deficiency noted. Plan: Hemodialysis today. Plan for another treatment tomorrow. Continue IV iron. Add Aranesp. Maintain oral Lasix. Check phosphorus level.. Will need a permacath placed and groin catheter removed prior to discharge. manager cash to set up outpatient hemodialysis. Monitor for renal recovery outpatient.
--- NOTE | 2020-10-02 12:16 | P.PN ---
Subjective Progress Note Date: 10/02/20 Acute exacerbation of chronic diastolic congestive heart failure, valvular heart disease This is an 84-year-old male, who presented to the emergency room on September 25. He came with complaints of shortness of breath. He has a history of essential hypertension, chronic anemia, heart failure, and chronic kidney disease. The patient states that for 4 or 5 days prior to admission, he was having chest farshad estion, and shortness of breath. The shortness of breath was worse when he lays flat, and better when he sat up. He apparently went over to urgent care and they were concerned about the fact his oxygen saturations were low, and he was transferred to the emergency room where he was evaluated and admitted with a diagnosis of CHF. We are asked to see him only today. In addition, the patient had lower extremity edema, but denied any chest pain or chest discomfort. Currently, the patient's on 6 L nasal cannula, and is not receiving IV fluids. White count 8.4, hemoglobin 10.9, hematocrit 36.1, platelet count 596,000. PT, INR, and PTT are all normal. Sodium 141, potassium 5.1, chlorides 106, CO2 26, anion gap 9, BUN 112, and creatinine 3.89. N-terminal proBNP was 10,300. Chest x-ray was consistent with fluid overload/CHF. The patient is seen today 09/28/2020 in follow-up on the selective care unit. He is doing a bit better today compared to yesterday. He is currently on 6 L high flow nasal cannula. O2 saturation 91%. He is afebrile. Hemodynamically stable. Sodium 142. Potassium 4.3. BUN 127. Creatinine 4.14. He remains on Lasix 60 mg IV every 8 hours. Incontinent of urine. No accurate I&O. The patient is seen today the 2020 in follow-up on the selective care unit. He is currently resting quite comfortably in bed. Awake and alert in no acute distress. He remains on 6 L high flow nasal cannula. Current O2 saturation 92%. White count 7.5. Hemoglobin 9.8. Sodium 140. Potassium 5.6. BUN 141. Creatinine 4.74. He remains on Lasix 60 mg IV every 8 hours. The plan is for renal replacement therapy. Catheter to be placed by vascular. He remains on b ronchodilators. Heparin for DVT prophylaxis. The patient is seen today 09/30/2020 in follow-up on the selective care unit. Awake and alert in no acute distress. He is requiring 10 L high flow nasal cannula now. Chest x-ray continues to show evidence of congestive heart failure with cardiomegaly and a small left greater than right pleural effusion with worsening interstitial edema. He is currently on Lasix 60 mg IV every 8 hours. He did have a right groin hemodialysis catheter placed yesterday. Plan is for hemodialysis today. Sodium 140. Potassium 5.5. Bicarb 25. BUN 151. Creatinine 4.76. He remains on bronchodilators. Heparin for DVT prophylaxis. The patient is seen today 10/01/2020 in follow-up on the selective care unit. He is currently resting comfortably in bed. Awake and alert in no acute distress. He is still requiring 10 L high flow nasal cannula to maintain O2 saturations in the 90s. Chest x-ray reveals cardiomegaly with probable small left pleural effusion and mild central vascular congestion. Left greater than right bibasilar atelectasis/infiltrate. Sodium 142. Potassium 5.0. BUN 113. Creatinine 4.05. Remains on Lasix 60 mg IV every 8 hours. He did receive dialysis yesterday with 2 L of ultrafiltration. Continues to make urine. He remains on bronchodilators. Heparin for DVT prophylaxis. On 10/02/2020 , This morning, the patient requires still 15 L of Oxymizer cannula to maintain a saturation of around 91%. the patient has multiple medical problems and comorbidities. The patient diastolic heart failure. The patient also has chronic stage V kidney disease and the patient is going to be started on hemodialysis. He is resting comfortably in bed. Oxygen requirements remained high at 15 L. He remains on Lasix 60 mg by mouth twice a day. Procardia for blood pressure control in addition to Corgard. Urine output has been in the order of -1.6 L over the past 24 hours. The weight has been essentially unchanged. He still at 74-75 kg. The patient's most recent chest x-ray showing cardiomegaly, small left-sided pleural effusion, mild pulmonary vessel congestion, atelectatic changes in lung bases bilaterally. The patient remains afebrile. Despite high oxygen requirements, the patient is still stable clinically and is not having any worsening shortness of breath Objective - Vital Signs Vital signs: Vital Signs Temp 97.7 F 10/02/20 11:32 Pulse 69 10/02/20 11:32 Resp 18 10/02/20 11:32 BP 162/72 10/02/20 11:32 Pulse Ox 91 L 10/02/20 11:32 Intake & Output 10/01/20 10/02/20 10/02/20 18:59 06:59 18:59 Intake Total 660 118 Output Total 450 350 Balance 210 -350 118 Weight 75.7 kg Intake: Oral 660 118 Output: Urine 450 350 Other: Voiding Method Incontinent Urinal Urinal Diaper Diaper Incontinent Incontinent # Voids 1 # Bowel Movements 1 - Exam GENERAL EXAM: Alert, pleasant 85-year-old gentleman, on 15 L nasal cannula, comfortable in no apparent distress. HEAD: Normocephalic. EYES: Normal reaction of pupils, equal size. NOSE: Clear with pink turbinates. THROAT: No erythema or exudates. NECK: No masses, no JVD. CHEST: No chest wall deformity. LUNGS: Equal air entry with crackles in the bilateral bases. CVS: S1 and S2 normal with no audible murmur, regular rhythm. ABDOMEN: No hepatosplenomegaly, normal bowel sounds, no guarding or rigidity. SPINE: No scoliosis or deformity SKIN: No rashes CENTRAL NERVOUS SYSTEM: No focal deficits, tone is normal in all 4 extremities. EXTREMITIES: There is 1-2+ peripheral edema. No clubbing, no cyanosis. Peripheral pulses are intact. - Labs CBC & Chem 7: 09/29/20 07:47 10/02/20 06:57 Labs: Abnormal Lab Results - Last 24 Hours (Table) 10/02/20 Range/Units 06:57 BUN 131 H* (9-20) mg/dL Creatinine 3.95 H (0.66-1.25) mg/dL Glucose 104 H (74-99) mg/dL Assessment and Plan Plan: 1 Acute hypoxemic respiratory failure secondary to an acute exacerbation of chronic diastolic heart disease, along with a component of fluid overload and bilateral pleural effusions currently on 15 L of oxygen by nasal cannula. He had the first session of hemodialysis 2 days ago and the second session will be done today. 2 Valvular heart disease secondary pulmonary hypertension based on echocardiogram from 2019. This needs to be repeated 3 Chronic kidney disease with worsening renal function. Unable to quantify his urine output because of incontinence and the patient is going to undergo hemodialysis today 4 History of hypertension 5 Gout 6 Chronic anemia 7 Lifelong nonsmoker Plan: Repeat echocardiogram Chest x-ray to be repeated tomorrow postdialysis today Continue bronchodilators Plan is for hemodialysis today Continue diuretics Titrate down the FiO2 as tolerated We will continue to follow
[2020-10-02] MEDS: FUROSEMIDE 20 MG TAB PO SCH ×2 (12:23→16:19)
--- NOTE | 2020-10-02 12:43 | P.PN ---
Subjective Progress Note Date: 10/02/20 HISTORY OF PRESENT ILLNESS: HISTORY OF PRESENTING ILLNESS This is a pleasant 84-year-old male past medical history significant for peripheral vascular disease, chronic kidney disease, valvular heart disease, pulmonary hypertension and hypertension. He follows in the office with Dr. Joya. We have been asked to see in consultation for heart failure. He states for the previous 1-week he has been waking up at night feeling congested and short of breath. He has also noticed increased lower extremity swelling. He was in the office yesterday to have a routine echo performed when he left he started feeling short of breath and wheezy. He went to urgent care and was found to be hypoxic and was sent here for further evaluation. On arrival to ER his pulse ox was 93%. He denies chest pain, dizziness or palpitations. He follows regularly with a pants presser out of town. He states he still urinates frequently but small amounts. 09/29/2020 Pt is seen and examined sitting up in bed. He continues to feel short of breath and is wheezing. Blood pressure 144/55 heart rate 72 afebrile and maintaining oxygen saturation on nasal cannula. Still requiring 6 liters. Laboratory data reviewed, sodium 140, potassium 5.6, creatinine 4.74. 09/30/2020 Patient examined this morning at the bedside. Patient denies chest pain or pressure. He remains on IV Lasix 60 mg every 8 hours. Patient states she is scheduled to have his first dialysis session today. He is on 10 L high flow nasal cannula with oxygen saturations greater than 92%. Blood pressure 140/56. Heart rate in the 70s. BUN 151. Creatinine 4.76. 10/01/2020 Patient examined this morning at the bedside. Patient denies chest pain or pressure. He reports mild SOB this morning. He remains on 10 L high flow nasal cannula. Patient received his first hemodialysis session yesterday with removal of 2 L. BUN 113. Creatinine 4.05. Blood pressure 148/74. Heart rate in the 70s. He is afebrile. 10/02/2020 Patient examined this morning at the bedside. Patient states he is having mild shortness of breath at rest. He is currently on 15 L nasal cannula. Patient was transitioned to oral Lasix yesterday. He reports he is making about the same amount of urine as he was yesterday. Urine output over the last 24 hours is -800cc. Patient is scheduled for another session of hemodialysis today. He denies chest pain or pressure. Blood pressure 162/72. PHYSICAL EXAM: VITAL SIGNS: Reviewed. GENERAL: Well-developed in no acute distress. NECK: Supple. No JVD or thyromegaly LUNGS: Respirations even and unlabored. Lungs with bibasilar rales. HEART: Regular rate and rhythm. S1 and S2 heard. Systolic murmur noted. EXTREMITIES: Normal range of motion. No clubbing or cyanosis. Peripheral pulses intact. Trace bilateral lower extremity edema ASSESSMENT: Acute on chronic diastolic heart failure Acute on chronic kidney disease Hypertension Valvular heart disease PLAN: Continue current cardiac medications Continue oral lasix Monitor kidney function Daily weights Accurate I&O Continue hemodialysis per nephrology. Patient scheduled for hemodialysis today. Increase hydralazine to 75 mg 3 times a day. Continue to monitor blood pressure. Further recommendations pending patient course Nurse practitioner note has been reviewed by physician. Signing provider agrees with the documented findings, assessment, and plan of care. Objective - Vital Signs Vital signs: Vital Signs Temp 97.7 F 10/02/20 11:32 Pulse 69 10/02/20 11:32 Resp 18 10/02/20 11:32 BP 162/72 10/02/20 11:32 Pulse Ox 91 L 10/02/20 11:32 Intake & Output 10/01/20 10/02/20 10/02/20 18:59 06:59 18:59 Intake Total 660 118 Output Total 450 350 Balance 210 -350 118 Weight 75.7 kg Intake: Oral 660 118 Output: Urine 450 350 Other: Voiding Method Incontinent Urinal Urinal Diaper Diaper Incontinent Incontinent # Voids 1 # Bowel Movements 1 - Labs CBC & Chem 7: 09/29/20 07:47 10/02/20 06:57 Labs: Abnormal Lab Results - Last 24 Hours (Table) 10/02/20 Range/Units 06:57 BUN 131 H* (9-20) mg/dL Creatinine 3.95 H (0.66-1.25) mg/dL Glucose 104 H (74-99) mg/dL
[2020-10-02 14:08] VITALS: BMI 24.6
--- NOTE | 2020-10-02 15:14 | P.PN ---
Subjective 84-year-old male came in with comments of shortness of breath or which started about couple days ago feels congested has been waking up for about a week at nighttime. Denied any clear history of orthopnea paroxysmal nocturnal dyspnea in spite of above-mentioned history. Patient doesn't have any history of COPD patient appears to have had chronic diastolic dysfunction in the past. Patient does have pedal edema does have elevated BNP and chest x-ray is consistent with pulmonary edema. Patient doesn't use any oxygen at home presently on 3 L of of oxygen. Patient usually uses 40 twice a day of the oral Lasix. Patient has chronic kidney disease stage IV with baseline creatinine around 3. Patient does have elevated potassium of 5.7 which will be monitored troponin is negative EKG sinus rhythm with frequent PVCs with right bundle branch block and left anterior fascicular block. 09/26/2020 Patient the pedal edema. Straight improved compared to yesterday. Patient fairly feels the same as yesterday. Unable to clearly assess the urine output because of his incontinence. Patient remains on IV Lasix was evaluated by cardiology, there is marginal improvement in serum creatinine from 3.7-3.49. Patient remained short of breath. 09/27/2020 The patient was pretty status is bit worse patient is on 60 mg twice a day of IV Lasix in spite of which patient didn't have any significant improvement in clinical is pretty status and requiring more oxygen because of which I'm consulting nephrology for recommendations regarding Lasix and diuretic therapy patient has wheezing on exam, or feels more short of breath doesn't have any history of COPD patient appears to have cardiac Asthma pulmonary was consulted because of not improvement in his respiratory status. Unable to assess the input and output because of his incontinence patient probably will benefit from Drake catheter. Patient doesn't have any much of pedal edema today. 09/28/2020 Since wheezing improved patient mentions and 6 L of oxygen. Patient was evaluated by nephrology patient creatinine continued to get worse. Patient will be started on hemodialysis. 09/29/2020 Patient 6 L of oxygen. Patient will undergo hemodialysis catheter placement today. he will undergo hemodialysis either today or tomorrow 10/02/2020 Patient is was limb 50 L of oxygen patient received hemodialysis couple days ago will undergo hemodialysis again today. Patient the urine output was a 1.6 L yesterday. Patient can use to have a sided pleural effusion. Patient had pulmonary vascular condition on the chest x-ray which will be repeated tomorrow and patient is afebrile patient doesn't have any leukocytosis. Patient has moderate pulmonary hypertension normal ejection fraction to was 90 minutes with another echocardiogram. Constitutional: Denied any fatigue denied any fever. Cardio vascular: denied any chest pain, palpitations Gastrointestinal denied any nausea vomiting Pulmonary: As mentioned in HPI Neurologic denied any new focal deficits All inpatient medications were reviewed and appropriate changes in these medications as dictated in the interval history and assessment and plan. Objective - Vital Signs Vital signs: Vital Signs Temp 97.7 F 10/02/20 11:32 Pulse 69 10/02/20 11:32 Resp 18 10/02/20 11:32 BP 162/72 10/02/20 11:32 Pulse Ox 91 L 10/02/20 11:32 Intake & Output 10/01/20 10/02/20 10/02/20 18:59 06:59 18:59 Intake Total 660 236 Output Total 450 350 600 Balance 210 -350 -364 Weight 75.7 kg 75.7 kg Intake: Oral 660 236 Output: Urine 450 350 600 Other: Voiding Method Incontinent Urinal Urinal Diaper Diaper Incontinent Incontinent # Voids 1 2 # Bowel Movements 1 - Exam PHYSICAL EXAMINATION: GENERAL: The patient is alert and oriented x3, not in any acute distress. Well developed, well nourished. HEENT: Pupils are round and equally reacting to light. EOMI. No scleral icterus. No conjunctival pallor. Normocephalic, atraumatic. No pharyngeal erythema. No thyromegaly. CARDIOVASCULAR: S1 and S2 present. No murmurs, rubs, or gallops. PULMONARY: Expiratory wheezing on exam ABDOMEN: Soft, nontender, nondistended, normoactive bowel sounds. No palpable organomegaly. MUSCULOSKELETAL: No joint swelling or deformity. EXTREMITIES: No cyanosis, clubbing, bilateral pitting pedal edema, which improved compared to yesterday NEUROLOGICAL: Gross neurological examination did not reveal any focal deficits. SKIN: No rashes. - Labs CBC & Chem 7: 09/29/20 07:47 10/02/20 06:57 Labs: Abnormal Lab Results - Last 24 Hours (Table) 10/02/20 Range/Units 06:57 BUN 131 H* (9-20) mg/dL Creatinine 3.95 H (0.66-1.25) mg/dL Glucose 104 H (74-99) mg/dL Assessment and Plan Plan: -Acute hypoxic respiratory failure: Secondary to congestive heart failure exacerbation patient probably has chronic diastolic dysfunction with acute exacerbation. Remains on IV Lasix patient's creatinine continued to get worse. Patient will need hemodialysis, urinalysis catheter placement today patient has cardiorenal syndrome. 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
[2020-10-02] MEDS: CALCIUM CARB-VIT D 500 MG-5 MCG TAB PO SCH ×2 (16:18→16:19)
[2020-10-02] MEDS: DARBEPOETIN ALFA 40 MCG/0.4 ML SYRINGE SQ SCH (16:19)
[2020-10-02] MEDS: allopurinoL 300 MG TAB PO SCH (16:19)
[2020-10-02] MEDS: TAMSULOSIN 0.4 MG CAP.ER.24H PO SCH (16:19)
[2020-10-02] MEDS: hydrALAZINE HCL 25 MG TAB PO SCH ×2 (16:20→21:28)
[2020-10-02] MEDS: hydrALAZINE HCL 50 MG TAB PO SCH (16:34)
[2020-10-03 08:13] LABS: Calcium 9.3 mg/dL (8.4-10.2); Magnesium 2.1 mg/dL (1.6-2.3); Phosphorus 4.5 mg/dL (2.5-4.5); Potassium 4.6 mmol/L (3.5-5.1)
[2020-10-03] MEDS: hydrALAZINE HCL 25 MG TAB PO SCH ×3 (08:24→20:26)
[2020-10-03] MEDS: FUROSEMIDE 20 MG TAB PO SCH ×2 (08:24→17:36)
[2020-10-03] MEDS: HEPARIN SODIUM,PORCINE/PF 5,000 UNIT/0.5 ML SYRINGE SQ SCH ×2 (08:24→20:26)
[2020-10-03] MEDS: SODIUM FERRIC GLUCONAT-SUCROSE 125 MG in SODIUM CHLORIDE 0.9% 100 ML IVPB SCH (08:25)
[2020-10-03] MEDS: ASPIRIN 81 MG PO SCH (08:25)
[2020-10-03] MEDS: CALCIUM CARB-VIT D 500 MG-5 MCG TAB PO SCH ×2 (08:25→17:35)
[2020-10-03] MEDS: ANAGRELIDE 1 MG PO SCH ×3 (08:25→17:34)
--- NOTE | 2020-10-03 09:37 | XR ---
EXAMINATION TYPE: XR chest 1V portable DATE OF EXAM: 10/03/2020 COMPARISON: Chest x-ray 10/01/2020 HISTORY: Congestive heart failure TECHNIQUE: Single frontal view of the chest is obtained. FINDINGS: There is some improvement in aeration, perihilar vascular indistinctness is compared to pr ior exam. Persistent abnormal basilar density is noted, left hemidiaphragm is obscured. Heart is like ly stable. No evident pneumothorax. There are overlying artifacts. IMPRESSION: Suspect some improvement in aeration, volume status, there is persistent left lower lobe atelectasis versus edema or pneumonia and associated effusion.
--- NOTE | 2020-10-03 10:52 | P.PN ---
Subjective 84-year-old male came in with comments of shortness of breath or which started about couple days ago feels congested has been waking up for about a week at nighttime. Denied any clear history of orthopnea paroxysmal nocturnal dyspnea in spite of above-mentioned history. Patient doesn't have any history of COPD patient appears to have had chronic diastolic dysfunction in the past. Patient does have pedal edema does have elevated BNP and chest x-ray is consistent with pulmonary edema. Patient doesn't use any oxygen at home presently on 3 L of of oxygen. Patient usually uses 40 twice a day of the oral Lasix. Patient has chronic kidney disease stage IV with baseline creatinine around 3. Patient does have elevated potassium of 5.7 which will be monitored troponin is negative EKG sinus rhythm with frequent PVCs with right bundle branch block and left anterior fascicular block. 09/26/2020 Patient the pedal edema. Straight improved compared to yesterday. Patient fairly feels the same as yesterday. Unable to clearly assess the urine output because of his incontinence. Patient remains on IV Lasix was evaluated by cardiology, there is marginal improvement in serum creatinine from 3.7-3.49. Patient remained short of breath. 09/27/2020 The patient was pretty status is bit worse patient is on 60 mg twice a day of IV Lasix in spite of which patient didn't have any significant improvement in clinical is pretty status and requiring more oxygen because of which I'm consulting nephrology for recommendations regarding Lasix and diuretic therapy patient has wheezing on exam, or feels more short of breath doesn't have any history of COPD patient appears to have cardiac Asthma pulmonary was consulted because of not improvement in his respiratory status. Unable to assess the input and output because of his incontinence patient probably will benefit from Drake catheter. Patient doesn't have any much of pedal edema today. 09/28/2020 Since wheezing improved patient mentions and 6 L of oxygen. Patient was evaluated by nephrology patient creatinine continued to get worse. Patient will be started on hemodialysis. 09/29/2020 Patient 6 L of oxygen. Patient will undergo hemodialysis catheter placement today. he will undergo hemodialysis either today or tomorrow 10/02/2020 Patient is was limb 50 L of oxygen patient received hemodialysis couple days ago will undergo hemodialysis again today. Patient the urine output was a 1.6 L yesterday. Patient can use to have a sided pleural effusion. Patient had pulmonary vascular condition on the chest x-ray which will be repeated tomorrow and patient is afebrile patient doesn't have any leukocytosis. Patient has moderate pulmonary hypertension normal ejection fraction to was 90 minutes with another echocardiogram. 10/03/2020 Patient the head hemodialysis yesterday with removal of 2 L of it. Patient to pulmonary edema as well as pedal edema improved and patient is presently on 6 L of oxygen. Patient feels much better today. Constitutional: Denied any fatigue denied any fever. Cardio vascular: denied any chest pain, palpitations Gastrointestinal denied any nausea vomiting Pulmonary: As mentioned in HPI Neurologic denied any new focal deficits All inpatient medications were reviewed and appropriate changes in these medications as dictated in the interval history and assessment and plan. Objective - Vital Signs Vital signs: Vital Signs Temp 97.4 F L 10/03/20 09:52 Pulse 68 10/03/20 09:52 Resp 18 10/03/20 09:52 BP 149/106 10/03/20 09:52 Pulse Ox 97 10/03/20 09:52 Intake & Output 10/02/20 10/03/20 10/03/20 18:59 06:59 18:59 Intake Total 356 20 240 Output Total 2600 220 Balance -2244 -200 240 Weight 75.7 kg 76.3 kg Intake: IV 20 Invasive Line 5 10 Invasive Line 6 10 Oral 356 240 Output: Urine 600 220 Hemodialysis 2000 Other: Voiding Method Urinal Urinal Urinal Diaper Diaper Diaper Incontinent Incontinent Incontinent # Voids 2 # Bowel Movements 1 - Exam PHYSICAL EXAMINATION: GENERAL: The patient is alert and oriented x3, not in any acute distress. Well developed, well nourished. HEENT: Pupils are round and equally reacting to light. EOMI. No scleral icterus. No conjunctival pallor. Normocephalic, atraumatic. No pharyngeal erythema. No thyromegaly. CARDIOVASCULAR: S1 and S2 present. No murmurs, rubs, or gallops. PULMONARY: Expiratory wheezing on exam ABDOMEN: Soft, nontender, nondistended, normoactive bowel sounds. No palpable organomegaly. MUSCULOSKELETAL: No joint swelling or deformity. EXTREMITIES: No cyanosis, clubbing, bilateral pitting pedal edema, which improved NEUROLOGICAL: Gross neurological examination did not reveal any focal deficits. SKIN: No rashes. - Labs CBC & Chem 7: 09/29/20 07:47 10/03/20 07:01 Labs: Abnormal Lab Results - Last 24 Hours (Table) 10/03/20 Range/Units 07:01 BUN 68 H (9-20) mg/dL Creatinine 2.77 H (0.66-1.25) mg/dL Assessment and Plan Plan: -Acute hypoxic respiratory failure: Secondary to congestive heart failure exacerbation patient probably has chronic diastolic dysfunction with acute exacerbation. Remains on IV Lasix patient's creatinine continued to get worse. Patient started on hemodialysis, respiratory status presently on 6 L of oxygen patient has cardiorenal syndrome. 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
--- NOTE | 2020-10-03 11:01 | ECHOF ---
Referral Reason:CHF MEASUREMENTS -------- HEIGHT: 175.3 cm WEIGHT: 75.3 kg BP: 160/74 IVSd: 1.3 cm (0.6 - 1.1) LVIDd: 5.4 cm (3.9 - 5.3) LVPWd: 1.5 cm (0.6 - 1.1) EDV(Teich): 142 ml IVSs: 1.6 cm LVIDs: 4.0 cm LVPWs: 1.4 cm %IVS Thck: 24 % ESV(Teich): 72 ml EF(Teich): 50 % %FS: 25 % SV(Teich): 71 ml LA Diam: 4.0 cm (2.7 - 3.8) RVIDd: 3.6 cm (< 3.3) LALs A4C: 6.6 cm LAAs A4C: 33.8 cm LAESV A-L A4C: 148 ml LAESV MOD A4C: 138 ml LALs A2C: 6.2 cm LAAs A2C: 30.0 cm LAESV A-L A2C: 123 ml LAESV MOD A2C: 116 ml LAESV(A-L): 138 ml LAESV Index (A-L): 72.39 ml/m Ao Diam: 3.5 cm (2.0 - 3.7) AV Cusp: 1.6 cm (1.5 - 2.6) EPSS: 0.6 cm MV E [place]: 0.96 m/s MV DecT: 109 ms MV Dec [place]: 8.7 m/s MV A [place]: 0.98 m/s MV E/A Ratio: 0.98 MV PHT: 32 ms TR Vmax: 4.06 m/s TR maxP.89 mmHg RAP: 10.00 mmHg RVSP: 75.89 mmHg MV EF SLOPE: 49.21 mm/s (70 - 150) MV EXCURSION: 24.99 mm (> 18.000) FINDINGS -------- Sinus rhythm with extra systolic beats. This was a technically good study. The left ventricular size is normal. There is mild concentric left ventricular hypertrophy. Overa ll left ventricular systolic function is low-normal with, an EF between 50 - 55 %. The right ventricle is normal in size. LA is severely dilated >40 ml/m2 The right atrial size is normal. There is mild aortic valve sclerosis. Trace amount of aortic regurgitation. Mild mitral regurgitation is present. Mild tricuspid regurgitation present. There is moderate to severe pulmonary hypertension. The rig ht ventricular systolic pressure, as measured by Doppler, is 75.89mmHg. Trace/mild (physiologic) pulmonic regurgitation. The aortic root size is normal. There is a small, generalized pericardial effusion present. Moderate Pleural Effusion. CONCLUSIONS -------- 1. The left ventricular size is normal. 2. There is mild concentric left ventricular hypertrophy. 3. Overall left ventricular systolic function is low-normal with, an EF between 50 - 55 %. 4. The right ventricle is normal in size. 5. LA is severely dilated >40 ml/m2 6. The right atrial size is normal. 7. There is mild aortic valve sclerosis. 8. Trace amount of aortic regurgitation. 9. Mild mitral regurgitation is present. 10. Mild tricuspid regurgitation present. 11. There is moderate to severe pulmonary hypertension. 12. The right ventricular systolic pressure, as measured by Doppler, is 75.89mmHg. 13. Trace/mild (physiologic) pulmonic regurgitation. 14. The aortic root size is normal. 15. There is a small, generalized pericardial effusion present. 16. Moderate Pleural Effusion. [employer]: Perri Garcia RDCS
--- NOTE | 2020-10-03 11:49 | P.PN ---
Subjective HISTORY OF PRESENTING ILLNESS 09/29/2020 Pt is seen and examined laying flat resting comfortably in bed in no acute distress. Breathing is stable. No chest pain, dizziness or palpitations. Blood pressure 149/106 heart rate 68 afebrile and maintaining oxygen saturation on high flow nasal cannula. He underwent HD yesterday with 2L removed. Repeat chest xray this morning reveals improvement in aeration and volume status with persistent left lower lobe atelectasis/edema. Laboratory data reviewed, sodium 137, potassium 4.6, creatinine 2.77 and magnesium 2.1. PHYSICAL EXAMINATION CONSTITUTIONAL: No apparent distress. HEENT: Head is normocephalic. Pupils are equal, round. Sclerae anicteric. Mucous membranes of the mouth are moist. No JVD. No carotid bruit. CHEST EXAMINATION: Bibasilar rales. No wheezes or rhonchi. No chest wall tenderness is noted on palpation or with deep breathing. HEART EXAMINATION: Regular rate and rhythm. S1, S2 heard. Systolic ejection murmur at the apex, no gallops or rub. EXTREMITIES: 2+ peripheral pulses, trace bilateral lower extremity pitting edema and no calf tenderness. ASSESSMENT Acute on chronic diastolic heart failure Acute on chronic kidney disease requiring HD Hypertension, uncontrolled Valvular heart disease PLAN Continue current medical regimen. Dialysis recommendations per nephrology. Nurse Practitioner note has been reviewed, I agree with a documented findings and plan of care. Patient was seen and examined. Objective - Vital Signs Vital signs: Vital Signs Temp 97.4 F L 10/03/20 09:52 Pulse 68 10/03/20 09:52 Resp 18 10/03/20 09:52 BP 149/106 10/03/20 09:52 Pulse Ox 97 10/03/20 09:52 Intake & Output 10/02/20 10/03/20 10/03/20 18:59 06:59 18:59 Intake Total 356 20 240 Output Total 2600 220 Balance -2244 -200 240 Weight 75.7 kg 76.3 kg Intake: IV 20 Invasive Line 5 10 Invasive Line 6 10 Oral 356 240 Output: Urine 600 220 Hemodialysis 2000 Other: Voiding Method Urinal Urinal Urinal Diaper Diaper Diaper Incontinent Incontinent Incontinent # Voids 2 # Bowel Movements 1 - Labs CBC & Chem 7: 09/29/20 07:47 10/03/20 07:01 Labs: Abnormal Lab Results - Last 24 Hours (Table) 10/03/20 Range/Units 07:01 BUN 68 H (9-20) mg/dL Creatinine 2.77 H (0.66-1.25) mg/dL
--- NOTE | 2020-10-03 12:04 | P.PN ---
Subjective Progress Note Date: 10/03/20 Acute exacerbation of chronic diastolic congestive heart failure, valvular heart disease This is an 84-year-old male, who presented to the emergency room on September 25. He came with complaints of shortness of breath. He has a history of essential hypertension, chronic anemia, heart failure, and chronic kidney disease. The patient states that for 4 or 5 days prior to admission, he was having chest farshad estion, and shortness of breath. The shortness of breath was worse when he lays flat, and better when he sat up. He apparently went over to urgent care and they were concerned about the fact his oxygen saturations were low, and he was transferred to the emergency room where he was evaluated and admitted with a diagnosis of CHF. We are asked to see him only today. In addition, the patient had lower extremity edema, but denied any chest pain or chest discomfort. Currently, the patient's on 6 L nasal cannula, and is not receiving IV fluids. White count 8.4, hemoglobin 10.9, hematocrit 36.1, platelet count 596,000. PT, INR, and PTT are all normal. Sodium 141, potassium 5.1, chlorides 106, CO2 26, anion gap 9, BUN 112, and creatinine 3.89. N-terminal proBNP was 10,300. Chest x-ray was consistent with fluid overload/CHF. The patient is seen today 09/28/2020 in follow-up on the selective care unit. He is doing a bit better today compared to yesterday. He is currently on 6 L high flow nasal cannula. O2 saturation 91%. He is afebrile. Hemodynamically stable. Sodium 142. Potassium 4.3. BUN 127. Creatinine 4.14. He remains on Lasix 60 mg IV every 8 hours. Incontinent of urine. No accurate I&O. The patient is seen today the 2020 in follow-up on the selective care unit. He is currently resting quite comfortably in bed. Awake and alert in no acute distress. He remains on 6 L high flow nasal cannula. Current O2 saturation 92%. White count 7.5. Hemoglobin 9.8. Sodium 140. Potassium 5.6. BUN 141. Creatinine 4.74. He remains on Lasix 60 mg IV every 8 hours. The plan is for renal replacement therapy. Catheter to be placed by vascular. He remains on b ronchodilators. Heparin for DVT prophylaxis. The patient is seen today 09/30/2020 in follow-up on the selective care unit. Awake and alert in no acute distress. He is requiring 10 L high flow nasal cannula now. Chest x-ray continues to show evidence of congestive heart failure with cardiomegaly and a small left greater than right pleural effusion with worsening interstitial edema. He is currently on Lasix 60 mg IV every 8 hours. He did have a right groin hemodialysis catheter placed yesterday. Plan is for hemodialysis today. Sodium 140. Potassium 5.5. Bicarb 25. BUN 151. Creatinine 4.76. He remains on bronchodilators. Heparin for DVT prophylaxis. The patient is seen today 10/01/2020 in follow-up on the selective care unit. He is currently resting comfortably in bed. Awake and alert in no acute distress. He is still requiring 10 L high flow nasal cannula to maintain O2 saturations in the 90s. Chest x-ray reveals cardiomegaly with probable small left pleural effusion and mild central vascular congestion. Left greater than right bibasilar atelectasis/infiltrate. Sodium 142. Potassium 5.0. BUN 113. Creatinine 4.05. Remains on Lasix 60 mg IV every 8 hours. He did receive dialysis yesterday with 2 L of ultrafiltration. Continues to make urine. He remains on bronchodilators. Heparin for DVT prophylaxis. On 10/02/2020 , This morning, the patient requires still 15 L of Oxymizer cannula to maintain a saturation of around 91%. the patient has multiple medical problems and comorbidities. The patient diastolic heart failure. The patient also has chronic stage V kidney disease and the patient is going to be started on hemodialysis. He is resting comfortably in bed. Oxygen requirements remained high at 15 L. He remains on Lasix 60 mg by mouth twice a day. Procardia for blood pressure control in addition to Corgard. Urine output has been in the order of -1.6 L over the past 24 hours. The weight has been essentially unchanged. He still at 74-75 kg. The patient's most recent chest x-ray showing cardiomegaly, small left-sided pleural effusion, mild pulmonary vessel congestion, atelectatic changes in lung bases bilaterally. The patient remains afebrile. Despite high oxygen requirements, the patient is still stable clinically and is not having any worsening shortness of breath 10/03/2020 the patient is calm and comfortable without having any labored breathing and the patient is sitting up on a recliner reading a newspaper. His oxygenation is improved and the patient is currently on 6 L about 2 by nasal cannula. Note that the patient underwent hemodialysis with ultrafiltration and there was removal of 2 L of fluid yesterday without any major difficulties. He remains hemodynamically stable and for now he is in a negative fluid balance. Echocardiogram was repeated and the patient was found to have an ejection fraction of 50-55%. Normal LV. Normal RV. Some mild diastolic dysfunction. The patient had moderate to severe pulmonary hypertension. Right-sided pressures were quite elevated at 75 mmHg. Small pericardial effusion and moderate pleural effusion was seen. She remains on Lasix 60 mg IV every 12 hours and the patient's has blood work that showed a creatinine of 2.77 with a BUN of 68. Electrolytes are all within normal limits. Hemoglobin currently is at Objective - Vital Signs Vital signs: Vital Signs Temp 97.9 F 10/03/20 11:44 Pulse 63 10/03/20 11:44 Resp 18 10/03/20 11:44 BP 133/50 10/03/20 11:44 Pulse Ox 93 L 10/03/20 11:44 Intake & Output 10/02/20 10/03/20 10/03/20 18:59 06:59 18:59 Intake Total 356 20 240 Output Total 2600 220 Balance -2244 -200 240 Weight 75.7 kg 76.3 kg Intake: IV 20 Invasive Line 5 10 Invasive Line 6 10 Oral 356 240 Output: Urine 600 220 Hemodialysis 2000 Other: Voiding Method Urinal Urinal Urinal Diaper Diaper Diaper Incontinent Incontinent Incontinent # Voids 2 # Bowel Movements 1 - Exam GENERAL EXAM: Alert, pleasant 85-year-old gentleman, on 6 L nasal cannula, comfortable in no apparent distress. HEAD: Normocephalic. EYES: Normal reaction of pupils, equal size. NOSE: Clear with pink turbinates. THROAT: No erythema or exudates. NECK: No masses, no JVD. CHEST: No chest wall deformity. LUNGS: Equal air entry with crackles in the bilateral bases. CVS: S1 and S2 normal with no audible murmur, regular rhythm. ABDOMEN: No hepatosplenomegaly, normal bowel sounds, no guarding or rigidity. SPINE: No scoliosis or deformity SKIN: No rashes CENTRAL NERVOUS SYSTEM: No focal deficits, tone is normal in all 4 extremities. EXTREMITIES: There is 1-2+ peripheral edema. No clubbing, no cyanosis. Peripheral pulses are intact. - Labs CBC & Chem 7: 09/29/20 07:47 10/03/20 07:01 Labs: Abnormal Lab Results - Last 24 Hours (Table) 10/03/20 Range/Units 07:01 BUN 68 H (9-20) mg/dL Creatinine 2.77 H (0.66-1.25) mg/dL Assessment and Plan Plan: 1 Acute hypoxemic respiratory failure secondary to an acute exacerbation of chronic diastolic heart disease, along with a component of fluid overload and bilateral pleural effusions currently on 6L of oxygen by nasal cannula. The patient's oxygenation has been improving and the patient has a weaned down to 6 L of oxygen by nasal cannula. He still has a component of fluid overload and pleural effusions which is anticipated to improve with dialysis. He has undergone 2 sessions of hemodialysis as far and this has caused improvement in his oxygenation. 2 Valvular heart disease secondary pulmonary hypertension based on echocardiogram from 2019. Repeat echo cardiac exam showing severe pulmonary hypertension with a PA pressure of 78. LV is within normal limits. 3 Chronic kidney disease with worsening renal function. Unable to quantify his urine output because of incontinence and the patient is going to undergo hemodialysis today 4 History of hypertension 5 Gout 6 Chronic anemia 7 Lifelong nonsmoker 8 Chronic pulmonary hypertension, likely secondary, may benefit from a right- sided cardiac catheter later stage to investigate his pulmonary hypertension. Plan: Repeat echocardiogram was noted and may consider a right-sided cardiac cath regarding only hypertension evaluation. This is considered to be secondary pulmonary hypertension for now. Oxygenation has been improving Chest x-ray to be repeated and is still showing some pleural effusions bilaterally with some area of consolidation on the left, however, there is volu me loss and investigating this patient with a CAT scan of the chest is reasonable. A noncontrast CAT scan of the chest will be ordered accordingly. Continue bronchodilators Hemodialysis per nephrology Continue diuretics Titrate down the FiO2 as tolerated We will continue to follow
--- NOTE | 2020-10-03 12:07 | P.PN ---
Subjective Patient is seen in follow-up for acute kidney injury on chronic kidney disease, currently hemodialysis dependent. Maintained on oral Lasix. States he is making urine but not a significant amount. Currently on 6 L high flow cannula. Shortness of breath improved. Feels better today overall. Vital signs are stable. General: The patient appeared well nourished and normally developed. HEENT: Head exam is unremarkable. On nasal cannula. LUNGS: Breath sounds decreased. HEART: Rate and Rhythm are regular. ABDOMEN: Soft, no distention. EXTREMITITES: Trace edema. Objective - Vital Signs Vital signs: Vital Signs Temp 97.9 F 10/03/20 11:44 Pulse 63 10/03/20 11:44 Resp 18 10/03/20 11:44 BP 133/50 10/03/20 11:44 Pulse Ox 93 L 10/03/20 11:44 Intake & Output 10/02/20 10/03/20 10/03/20 18:59 06:59 18:59 Intake Total 356 20 240 Output Total 2600 220 Balance -2244 -200 240 Weight 75.7 kg 76.3 kg Intake: IV 20 Invasive Line 5 10 Invasive Line 6 10 Oral 356 240 Output: Urine 600 220 Hemodialysis 2000 Other: Voiding Method Urinal Urinal Urinal Diaper Diaper Diaper Incontinent Incontinent Incontinent # Voids 2 # Bowel Movements 1 - Labs CBC & Chem 7: 09/29/20 07:47 10/03/20 07:01 Labs: Abnormal Lab Results - Last 24 Hours (Table) 10/03/20 Range/Units 07:01 BUN 68 H (9-20) mg/dL Creatinine 2.77 H (0.66-1.25) mg/dL Assessment and Plan Plan: Assessment: 1. Acute kidney injury secondary to ATN secondary to cardiorenal syndrome. Currently hemodialysis dependent. 2. Chronic kidney disease stage IV with baseline creatinine near 3. 3. Acute on chronic diastolic CHF with moderate mitral regurgitation and mild to moderate tricuspid regurgitation and pulmonary hypertension. 4. Volume overload. Improving with ultrafiltration. 5. Hyperkalemia secondary to acute kidney injury. Improved postdialysis. 6. Anemia of chronic disease. Iron deficiency noted - s/p IV iron. Maintained on Aranesp. Plan: Hemodialysis today and tomorrow. Maintain oral Lasix. Phosphorus level normal. Will need a permacath placed and groin catheter removed prior to discharge. manager aerospace to set up outpatient hemodialysis. Monitor for renal recovery outpatient.
--- NOTE | 2020-10-03 12:49 | CT ---
EXAMINATION TYPE: CT chest wo con DATE OF EXAM: 10/03/2020 COMPARISON: None HISTORY: dyspnea, hypoxia CT DLP: 302.[address] of the chest was performed with lung and mediastinal window settings submitted. The la ck of contrast limits evaluation of the vascular, mediastinal and parenchymal structures including th e upper abdomen. LUNGS: Moderate bilateral pleural effusions underlying atelectasis and/or infiltrates. Patchy infiltr ate left upper lobe. MEDIASTINUM/DANIA: Thoracic aorta is of normal caliber with limited evaluation given lack of contrast . The heart is enlarged. No evidence for mediastinal mass. No lymph nodes greater than 1cm. UPPER ABDOMEN: No significant abnormality is seen. OTHER: Prominent epicardial lymph node measuring 1.7 cm. IMPRESSION: 1. Bilateral pleural effusions with cardiomegaly and scattered infiltrates may reflect underlying co ngestive failure. Infiltrates of other etiology not excluded and clinical correlation advised. 2. Prominent right epicardial lymph node of uncertain etiology.
[2020-10-03] MEDS: allopurinoL 300 MG TAB PO SCH (14:55)
[2020-10-03] MEDS: TAMSULOSIN 0.4 MG CAP.ER.24H PO SCH (14:55)
[2020-10-04 07:08] LABS: Anisocytosis Slight; HCT 28.6 % (39.0-53.0); HGB 8.6 gm/dL (13.0-17.5); Hypochromasia Moderate; MCH 27.6 pg (25.0-35.0); MCHC 30.1 g/dL (31.0-37.0); MCV 91.6 fL (80.0-100.0); Mean Platelet Volume 10.8; Platelet Count 234 k/uL (150-450); RBC 3.13 m/uL (4.30-5.90); RDW 17.4 % (11.5-15.5); WBC 5.1 k/uL (3.8-10.6)
[2020-10-04 07:17] LABS: Calcium 8.8 mg/dL (8.4-10.2)
[2020-10-04] MEDS ORDERED: LIDOCAINE 1% INJ 10MG/ML (20 ML MDV) ONE (07:30)
[2020-10-04] MEDS ORDERED: SODIUM CHLORIDE 0.9% 250 ML IV ONE (07:30)
[2020-10-04] MEDS ORDERED: MIDAZOLAM 2 MG/2 ML VIAL IV ONE (07:41)
[2020-10-04] MEDS ORDERED: LIDOCAINE 1% INJ 10MG/ML (20 ML MDV) SQ ONE (07:42)
[2020-10-04] MEDS ORDERED: HEPARIN SODIUM 1,000 UN/ML (10ML VL) ONE (07:55)
[2020-10-04] MEDS ORDERED: HEPARIN SODIUM 1,000 UN/ML (10ML VL) IV ONE (08:06)
[2020-10-04 08:31] LABS: Eosinophils # (M) 0.15 k/uL (0-0.7); Monocytes # (M) 0.51 k/uL (0-1.0); Neutrophils # (M) 4.23 k/uL (1.3-7.7); Neutrophils % (M) 83 %; Nucleated Red Blood Cells 0 /100 WBC (0-0); Total Cells Counted 100
[2020-10-04 08:32] LABS: Poikilocytosis (M) Present
--- NOTE | 2020-10-04 09:06 | XR ---
EXAMINATION TYPE: XR chest 1V portable DATE OF EXAM: 10/04/2020 Comparison: 10/03/2020 Clinical History: 85-year-old male permacath placement Findings: Right-sided double-lumen hemodialysis catheter with tip at the lower SVC. Left heart margin remains p artially obscured by adjacent pleural parenchymal opacity. Mild interstitial prominence. Continued mo derate left effusion extending up to the midlung level. Impression: Continued moderate left pleural effusion with adjacent atelectasis and/or consolidation. Continued in terstitial prominence that could reflect background of mild pulmonary vascular congestion.
--- NOTE | 2020-10-04 09:19 | IR ---
Fluoroscopy HISTORY: Renal failure 0.5 minutes fluoroscopy time supplied to the referring clinician. 80 intraoperative C-arm images doc ument the procedure. See dictated report from vascular surgery.
--- NOTE | 2020-10-04 09:41 | PCN ---
PROCEDURE NOTE PREOPERATIVE DIAGNOSIS: Acute on chronic renal failure. POSTOPERATIVE DIAGNOSIS: Acute on chronic renal failure. PROCEDURE PERFORMED: 1. Ultrasound-guided 23 cm dialysis catheter right jugular approach. 2. Removal of the catheter in the right femoral vein. Sedation time is 30 minutes. DESCRIPTION OF PROCEDURE: This patient was brought to the labor gang supervisor. Right groin and the right chest were prepped and drapes applied in the usual sterile manner and 1% lidocaine plain was applied to the right neck area. Ultrasound-guided micropuncture into the right jugular vein and micropuncture guide was passed and 4-Kyrgyz dilator advanced on top of the guidewire. After that, we passed a guidewire which was parked at the inferior vena cava. A tunnel was created. Through the tunnel, we brought 23 cm dialysis catheter. After that, dilator was advanced on top of the guidewire under fluoroscopy control. Sheath was advanced on the top of the guidewire. After that, we placed a dialysis catheter through the sheath. Sheath was removed. The guidewire was removed and the tip of the catheter in superior vena cava at the junction, flushed with heparin saline and hep- locked. Then the right groin was prepped and the right femoral dialysis catheter was removed. Pressure was held. Sedation time was 30 minutes. Dressing applied. Patient tolerated the procedure well. MMODL / IJN: [id number] /
[2020-10-04] MEDS: ANAGRELIDE 1 MG PO SCH ×3 (10:25→21:12)
[2020-10-04] MEDS: FUROSEMIDE 20 MG TAB PO SCH ×2 (10:25→12:12)
[2020-10-04] MEDS: hydrALAZINE HCL 25 MG TAB PO SCH ×3 (10:26→21:12)
--- NOTE | 2020-10-04 11:34 | P.PN ---
Subjective Patient is seen in follow-up for acute kidney injury on chronic kidney disease, currently hemodialysis dependent. Maintained on oral Lasix. States he is making urine but not a significant amount. Currently on 4 L high flow cannula. No active complaints. Tolerating dialysis well. Vital signs are stable. General: The patient appeared well nourished and normally developed. HEENT: Head exam is unremarkable. On nasal cannula. LUNGS: Breath sounds decreased. HEART: Rate and Rhythm are regular. ABDOMEN: Soft, no distention. EXTREMITITES: Trace edema. Objective - Vital Signs Vital signs: Vital Signs Temp 98.1 F 10/04/20 11:24 Pulse 64 10/04/20 03:34 Resp 16 10/04/20 11:24 BP 176/76 10/04/20 11:24 Pulse Ox 97 10/04/20 11:24 Intake & Output 10/03/20 10/04/20 10/04/20 18:59 06:59 18:59 Intake Total 720 100 Output Total 2150 Balance -1430 100 Weight 75.5 kg Intake: IV 100 Oral 720 0 Output: Urine 150 Hemodialysis 2000 Other: Voiding Method Urinal Urinal Urinal Diaper Diaper Diaper Incontinent Incontinent Incontinent # Voids 2 1 # Bowel Movements 1 - Labs CBC & Chem 7: 10/04/20 06:27 10/04/20 06:27 Labs: Abnormal Lab Results - Last 24 Hours (Table) 10/04/20 10/04/20 Range/Units 06:27 06:27 RBC 3.13 L (4.30-5.90) m/uL Hgb 8.6 L (13.0-17.5) gm/dL Hct 28.6 L (39.0-53.0) % MCHC 30.1 L (31.0-37.0) g/dL RDW 17.4 H (11.5-15.5) % Lymphocytes # (Manual) 0.10 L (1.0-4.8) k/uL Sodium 134 L (137-145) mmol/L BUN 55 H (9-20) mg/dL Creatinine 2.51 H (0.66-1.25) mg/dL Assessment and Plan Plan: Assessment: 1. Acute kidney injury secondary to ATN secondary to cardiorenal syndrome. Cu rrently hemodialysis dependent. 2. Chronic kidney disease stage IV with baseline creatinine near 3. 3. Acute on chronic diastolic CHF with moderate mitral regurgitation and mild to moderate tricuspid regurgitation and pulmonary hypertension. 4. Volume overload. Improving with ultrafiltration. 5. Hyperkalemia secondary to acute kidney injury. Improved postdialysis. 6. Anemia of chronic disease. Iron deficiency noted - s/p IV iron. Maintained on Aranesp. Plan: Currently seen was undergoing hemodialysis. Next treatment on Friday. Maintain oral Lasix. Phosphorus level normal. claim manager to set up outpatient hemodialysis. Monitor for renal recovery outpatient.
[2020-10-04] MEDS: ASPIRIN 81 MG PO SCH (12:12)
[2020-10-04] MEDS: HEPARIN SODIUM,PORCINE/PF 5,000 UNIT/0.5 ML SYRINGE SQ SCH ×2 (12:12→21:15)
[2020-10-04] MEDS: TAMSULOSIN 0.4 MG CAP.ER.24H PO SCH (12:12)
[2020-10-04] MEDS: allopurinoL 300 MG TAB PO SCH (12:12)
[2020-10-04] MEDS: ERGOCALCIFEROL 1,250 MCG (50,000 IU) CAPSULE PO SCH (12:13)
[2020-10-04] MEDS: CALCIUM CARB-VIT D 500 MG-5 MCG TAB PO SCH ×2 (12:14→16:42)
--- NOTE | 2020-10-04 13:08 | P.PN ---
Subjective 84-year-old male came in with comments of shortness of breath or which started about couple days ago feels congested has been waking up for about a week at nighttime. Denied any clear history of orthopnea paroxysmal nocturnal dyspnea in spite of above-mentioned history. Patient doesn't have any history of COPD patient appears to have had chronic diastolic dysfunction in the past. Patient does have pedal edema does have elevated BNP and chest x-ray is consistent with pulmonary edema. Patient doesn't use any oxygen at home presently on 3 L of of oxygen. Patient usually uses 40 twice a day of the oral Lasix. Patient has chronic kidney disease stage IV with baseline creatinine around 3. Patient does have elevated potassium of 5.7 which will be monitored troponin is negative EKG sinus rhythm with frequent PVCs with right bundle branch block and left anterior fascicular block. 09/26/2020 Patient the pedal edema. Straight improved compared to yesterday. Patient fairly feels the same as yesterday. Unable to clearly assess the urine output because of his incontinence. Patient remains on IV Lasix was evaluated by cardiology, there is marginal improvement in serum creatinine from 3.7-3.49. Patient remained short of breath. 09/27/2020 The patient was pretty status is bit worse patient is on 60 mg twice a day of IV Lasix in spite of which patient didn't have any significant improvement in clinical is pretty status and requiring more oxygen because of which I'm consulting nephrology for recommendations regarding Lasix and diuretic therapy patient has wheezing on exam, or feels more short of breath doesn't have any history of COPD patient appears to have cardiac Asthma pulmonary was consulted because of not improvement in his respiratory status. Unable to assess the input and output because of his incontinence patient probably will benefit from Drake catheter. Patient doesn't have any much of pedal edema today. 09/28/2020 Since wheezing improved patient mentions and 6 L of oxygen. Patient was evaluated by nephrology patient creatinine continued to get worse. Patient will be started on hemodialysis. 09/29/2020 Patient 6 L of oxygen. Patient will undergo hemodialysis catheter placement today. he will undergo hemodialysis either today or tomorrow 10/02/2020 Patient is was limb 50 L of oxygen patient received hemodialysis couple days ago will undergo hemodialysis again today. Patient the urine output was a 1.6 L yesterday. Patient can use to have a sided pleural effusion. Patient had pulmonary vascular condition on the chest x-ray which will be repeated tomorrow and patient is afebrile patient doesn't have any leukocytosis. Patient has moderate pulmonary hypertension normal ejection fraction to was 90 minutes with another echocardiogram. 10/03/2020 Patient the head hemodialysis yesterday with removal of 2 L of it. Patient to pulmonary edema as well as pedal edema improved and patient is presently on 6 L of oxygen. Patient feels much better today. 10/04/2020 Patient had hemodialysis yesterday and patient will undergo hemodialysis today as well. Patient is presently on 4 L of oxygen clinically appears to be improving chest x-ray still showing the infiltrate patient had the RVSP consistent with severe pulmonary hypertension RVSP of around 76. Constitutional: Denied any fatigue denied any fever. Cardio vascular: denied any chest pain, palpitations Gastrointestinal denied any nausea vomiting Pulmonary: As mentioned in HPI Neurologic denied any new focal deficits All inpatient medications were reviewed and appropriate changes in these medications as dictated in the interval history and assessment and plan. Objective - Vital Signs Vital signs: Vital Signs Temp 98.1 F 10/04/20 11:24 Pulse 64 10/04/20 03:34 Resp 16 10/04/20 11:24 BP 176/76 10/04/20 11:24 Pulse Ox 97 10/04/20 11:24 Intake & Output 10/03/20 10/04/20 10/04/20 18:59 06:59 18:59 Intake Total 720 100 Output Total 2150 Balance -1430 100 Weight 75.5 kg Intake: IV 100 Oral 720 0 Output: Urine 150 Hemodialysis 2000 Other: Voiding Method Urinal Urinal Urinal Diaper Diaper Diaper Incontinent Incontinent Incontinent # Voids 2 1 # Bowel Movements 1 - Exam PHYSICAL EXAMINATION: GENERAL: The patient is alert and oriented x3, not in any acute distress. Well developed, well nourished. HEENT: Pupils are round and equally reacting to light. EOMI. No scleral icterus. No conjunctival pallor. Normocephalic, atraumatic. No pharyngeal erythema. No thyromegaly. CARDIOVASCULAR: S1 and S2 present. No murmurs, rubs, or gallops. PULMONARY: No wheezing or crackles noted into bilateral lung louise. ABDOMEN: Soft, nontender, nondistended, normoactive bowel sounds. No palpable organomegaly. MUSCULOSKELETAL: No joint swelling or deformity. EXTREMITIES: No cyanosis, clubbing, bilateral pitting pedal edema, which improved NEUROLOGICAL: Gross neurological examination did not reveal any focal deficits. SKIN: No rashes. - Labs CBC & Chem 7: 10/04/20 06:27 10/04/20 06:27 Labs: Abnormal Lab Results - Last 24 Hours (Table) 10/04/20 10/04/20 Range/Units 06:27 06:27 RBC 3.13 L (4.30-5.90) m/uL Hgb 8.6 L (13.0-17.5) gm/dL Hct 28.6 L (39.0-53.0) % MCHC 30.1 L (31.0-37.0) g/dL RDW 17.4 H (11.5-15.5) % Lymphocytes # (Manual) 0.10 L (1.0-4.8) k/uL Sodium 134 L (137-145) mmol/L BUN 55 H (9-20) mg/dL Creatinine 2.51 H (0.66-1.25) mg/dL Assessment and Plan Plan: -Acute hypoxic respiratory failure: Secondary to congestive heart failure exacerbation patient probably has chronic diastolic dysfunction with acute exacerbation. Remains on IV Lasix patient's creatinine continued to get worse. Patient started on hemodialysis, respiratory status presently on 6 L of oxygen patient has cardiorenal syndrome. 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
--- NOTE | 2020-10-04 13:29 | P.PN ---
Subjective 10/04/2020 Pt is seen and examined on hemodialysis. The tech states she is going to attempt to remove 2 L. The patient denies symptoms of worsening shortness of breath. He states this morning when he woke up he felt a little bit wheezy but that has resolved. He denies chest pain, dizziness or palpitations. Blood pressure 129/51 heart rate 64 afebrile maintaining low normal oxygen saturation on nasal cannula. Laboratory data reviewed, WBC 5.1, hemoglobin 8.6, platelets 234, sodium 134, potassium 4, creatinine 2.51. PHYSICAL EXAMINATION CONSTITUTIONAL: No apparent distress. HEENT: Head is normocephalic. Pupils are equal, round. Sclerae anicteric. Mucous membranes of the mouth are moist. No JVD. No carotid bruit. CHEST EXAMINATION: Clear to auscultation bilaterally, diminished. No chest wall tenderness is noted on palpation or with deep breathing. HEART EXAMINATION: Regular rate and rhythm. S1, S2 heard. Systolic ejection murm ur at the apex, no gallops or rub. EXTREMITIES: 2+ peripheral pulses, trace bilateral lower extremity pitting edema and no calf tenderness. ASSESSMENT Acute on chronic diastolic heart failure Acute on chronic kidney disease requiring HD Hypertension, uncontrolled Valvular heart disease PLAN Continue current medical regimen. Dialysis recommendations per nephrology. Nurse Practitioner note has been reviewed, I agree with a documented findings and plan of care. Patient was seen and examined. Objective - Vital Signs Vital signs: Vital Signs Temp 98.2 F 10/04/20 08:00 Pulse 64 10/04/20 03:34 Resp 16 10/04/20 08:00 BP 129/51 10/04/20 08:00 Pulse Ox 90 L 10/04/20 08:37 Intake & Output 10/03/20 10/04/20 10/04/20 18:59 06:59 18:59 Intake Total 720 100 Output Total 2150 Balance -1430 100 Weight 75.5 kg Intake: IV 100 Oral 720 0 Output: Urine 150 Hemodialysis 2000 Other: Voiding Method Urinal Urinal Urinal Diaper Diaper Diaper Incontinent Incontinent Incontinent # Voids 2 1 # Bowel Movements 1 - Labs CBC & Chem 7: 10/04/20 06:27 10/04/20 06:27 Labs: Abnormal Lab Results - Last 24 Hours (Table) 05/26/21 05/26/21 Range/Units 06:27 06:27 RBC 3.13 L (4.30-5.90) m/uL Hgb 8.6 L (13.0-17.5) gm/dL Hct 28.6 L (39.0-53.0) % MCHC 30.1 L (31.0-37.0) g/dL RDW 17.4 H (11.5-15.5) % Lymphocytes # (Manual) 0.10 L (1.0-4.8) k/uL Sodium 134 L (137-145) mmol/L BUN 55 H (9-20) mg/dL Creatinine 2.51 H (0.66-1.25) mg/dL
--- NOTE | 2020-10-04 14:52 | P.PN ---
Subjective Progress Note Date: 10/04/20 Acute exacerbation of chronic diastolic congestive heart failure, valvular heart disease This is an 84-year-old male, who presented to the emergency room on September 25. He came with complaints of shortness of breath. He has a history of essential hypertension, chronic anemia, heart failure, and chronic kidney disease. The patient states that for 4 or 5 days prior to admission, he was having chest farshad estion, and shortness of breath. The shortness of breath was worse when he lays flat, and better when he sat up. He apparently went over to urgent care and they were concerned about the fact his oxygen saturations were low, and he was transferred to the emergency room where he was evaluated and admitted with a diagnosis of CHF. We are asked to see him only today. In addition, the patient had lower extremity edema, but denied any chest pain or chest discomfort. Currently, the patient's on 6 L nasal cannula, and is not receiving IV fluids. White count 8.4, hemoglobin 10.9, hematocrit 36.1, platelet count 596,000. PT, INR, and PTT are all normal. Sodium 141, potassium 5.1, chlorides 106, CO2 26, anion gap 9, BUN 112, and creatinine 3.89. N-terminal proBNP was 10,300. Chest x-ray was consistent with fluid overload/CHF. The patient is seen today 09/28/2020 in follow-up on the selective care unit. He is doing a bit better today compared to yesterday. He is currently on 6 L high flow nasal cannula. O2 saturation 91%. He is afebrile. Hemodynamically stable. Sodium 142. Potassium 4.3. BUN 127. Creatinine 4.14. He remains on Lasix 60 mg IV every 8 hours. Incontinent of urine. No accurate I&O. The patient is seen today the 2020 in follow-up on the selective care unit. He is currently resting quite comfortably in bed. Awake and alert in no acute distress. He remains on 6 L high flow nasal cannula. Current O2 saturation 92%. White count 7.5. Hemoglobin 9.8. Sodium 140. Potassium 5.6. BUN 141. Creatinine 4.74. He remains on Lasix 60 mg IV every 8 hours. The plan is for renal replacement therapy. Catheter to be placed by vascular. He remains on b ronchodilators. Heparin for DVT prophylaxis. The patient is seen today 09/30/2020 in follow-up on the selective care unit. Awake and alert in no acute distress. He is requiring 10 L high flow nasal cannula now. Chest x-ray continues to show evidence of congestive heart failure with cardiomegaly and a small left greater than right pleural effusion with worsening interstitial edema. He is currently on Lasix 60 mg IV every 8 hours. He did have a right groin hemodialysis catheter placed yesterday. Plan is for hemodialysis today. Sodium 140. Potassium 5.5. Bicarb 25. BUN 151. Creatinine 4.76. He remains on bronchodilators. Heparin for DVT prophylaxis. The patient is seen today 10/01/2020 in follow-up on the selective care unit. He is currently resting comfortably in bed. Awake and alert in no acute distress. He is still requiring 10 L high flow nasal cannula to maintain O2 saturations in the 90s. Chest x-ray reveals cardiomegaly with probable small left pleural effusion and mild central vascular congestion. Left greater than right bibasilar atelectasis/infiltrate. Sodium 142. Potassium 5.0. BUN 113. Creatinine 4.05. Remains on Lasix 60 mg IV every 8 hours. He did receive dialysis yesterday with 2 L of ultrafiltration. Continues to make urine. He remains on bronchodilators. Heparin for DVT prophylaxis. On 10/02/2020 , This morning, the patient requires still 15 L of Oxymizer cannula to maintain a saturation of around 91%. the patient has multiple medical problems and comorbidities. The patient diastolic heart failure. The patient also has chronic stage V kidney disease and the patient is going to be started on hemodialysis. He is resting comfortably in bed. Oxygen requirements remained high at 15 L. He remains on Lasix 60 mg by mouth twice a day. Procardia for blood pressure control in addition to Corgard. Urine output has been in the order of -1.6 L over the past 24 hours. The weight has been essentially unchanged. He still at 74-75 kg. The patient's most recent chest x-ray showing cardiomegaly, small left-sided pleural effusion, mild pulmonary vessel congestion, atelectatic changes in lung bases bilaterally. The patient remains afebrile. Despite high oxygen requirements, the patient is still stable clinically and is not having any worsening shortness of breath 10/03/2020 the patient is calm and comfortable without having any labored breathing and the patient is sitting up on a recliner reading a newspaper. His oxygenation is improved and the patient is currently on 6 L about 2 by nasal cannula. Note that the patient underwent hemodialysis with ultrafiltration and there was removal of 2 L of fluid yesterday without any major difficulties. He remains hemodynamically stable and for now he is in a negative fluid balance. Echocardiogram was repeated and the patient was found to have an ejection fraction of 50-55%. Normal LV. Normal RV. Some mild diastolic dysfunction. The patient had moderate to severe pulmonary hypertension. Right-sided pressures were quite elevated at 75 mmHg. Small pericardial effusion and moderate pleural effusion was seen. She remains on Lasix 60 mg IV every 12 hours and the patient's has blood work that showed a creatinine of 2.77 with a BUN of 68. Electrolytes are all within normal limits. On today's evaluation of 10/04/2020 the patient's postdialysis. Underwent d ialysis today and a total of 2 L of fluid was removed. A CAT scan of the chest was done yesterday showed bilateral pleural effusion slightly worse on the left and the patient also had some atelectatic changes in lung bases bilaterally. There was no evidence of any malignancy. I reviewed the CAT scan images and based on the reports, there is atelectatic changes more so on the left in addition to effusions and cardiomegaly. This is consistent with for overload. Otherwise, the patient is not having any significant respiratory distress. Urine output has been minimal at this point in time. No cough. No sputum production. Wean down to 4 L of oxygen by nasal cannula and his doing well for now. Blood work was reviewed. He is afebrile. He is hemodynamically stable. Hemoglobin is at 8.6. The patient remains on Lasix at a dose of 60 mg by mouth twice a day. Objective - Vital Signs Vital signs: Vital Signs Temp 97.8 F 10/04/20 13:29 Pulse 64 10/04/20 03:34 Resp 16 10/04/20 11:24 BP 168/75 10/04/20 13:29 Pulse Ox 97 10/04/20 11:24 Intake & Output 10/03/20 10/04/20 10/04/20 18:59 06:59 18:59 Intake Total 720 600 Output Total 2150 2000 Balance -1430 -1400 Weight 75.5 kg Intake: IV 120 0.9 20 Oral 720 480 Output: Urine 150 Hemodialysis 1999 1999 Other: Voiding Method Urinal Urinal Urinal Diaper Diaper Diaper Incontinent Incontinent Incontinent # Voids 2 1 # Bowel Movements 1 - Exam GENERAL EXAM: Alert, pleasant 85-year-old gentleman, on 4 L nasal cannula, comfortable in no apparent distress. HEAD: Normocephalic. EYES: Normal reaction of pupils, equal size. NOSE: Clear with pink turbinates. THROAT: No erythema or exudates. NECK: No masses, no JVD. CHEST: No chest wall deformity. LUNGS: Equal air entry with crackles in the bilateral bases. CVS: S1 and S2 normal with no audible murmur, regular rhythm. ABDOMEN: No hepatosplenomegaly, normal bowel sounds, no guarding or rigidity. SPINE: No scoliosis or deformity SKIN: No rashes CENTRAL NERVOUS SYSTEM: No focal deficits, tone is normal in all 4 extremities. EXTREMITIES: There is 1-2+ peripheral edema. No clubbing, no cyanosis. Peripheral pulses are intact. - Labs CBC & Chem 7: 10/04/20 06:27 10/04/20 06:27 Labs: Abnormal Lab Results - Last 24 Hours (Table) 10/04/20 10/04/20 Range/Units 06:27 06:27 RBC 3.13 L (4.30-5.90) m/uL Hgb 8.6 L (13.0-17.5) gm/dL Hct 28.6 L (39.0-53.0) % MCHC 30.1 L (31.0-37.0) g/dL RDW 17.4 H (11.5-15.5) % Lymphocytes # (Manual) 0.10 L (1.0-4.8) k/uL Sodium 134 L (137-145) mmol/L BUN 55 H (9-20) mg/dL Creatinine 2.51 H (0.66-1.25) mg/dL Assessment and Plan Plan: 1 Acute hypoxemic respiratory failure secondary to an acute exacerbation of chronic diastolic heart disease, along with a component of fluid overload and bilateral pleural effusions currently on 4L of oxygen by nasal cannula. The patient's oxygenation has been improving and the CAT scan of the chest was done and it showed bilateral pleural effusions and consolidations and atelectatic changes probably due to fluid overload and the patient is improving with dialysis and ultrafiltration. Currently down to 4 L of oxygen by nasal cannula and the patient can be weaned down further. CAT scan of the chest was noted. 2 Valvular heart disease secondary pulmonary hypertension based on echocardiogram from 2019. Repeat echo cardiac exam showing severe pulmonary hypertension with a PA pressure of 78. LV is within normal limits. 3 Chronic kidney disease with worsening renal function. Unable to quantify his urine output because of incontinence and the patient is going to undergo hemodialysis today 4 History of hypertension 5 Gout 6 Chronic anemia 7 Lifelong nonsmoker 8 Chronic pulmonary hypertension, likely secondary, may benefit from a right- sided cardiac catheter later stage to investigate his pulmonary hypertension. Plan: Repeat echocardiogram was noted and may consider a right-sided cardiac cath regarding only hypertension evaluation. This is considered to be secondary pulmonary hypertension for now. Oxygenation has been improving, currently on 4 L of oxygen by nasal cannula A noncontrast CAT scan of the chest was obtained and the results were reviewed and is consistent with fluid overload and bilateral pleural effusion and atelectatic changes in lung bases Continue bronchodilators Hemodialysis per nephrology Continue diuretics Titrate down the FiO2 as tolerated We will continue to follow
[2020-10-04] MEDS ORDERED: DESMOPRESSIN ACETATE 4 MCG/ML VIAL (MDV) IV STA (17:40)
[2020-10-04] MEDS ORDERED: DESMOPRESSIN ACETATE 22 MCG in SODIUM CHLORIDE 0.9% 50 ML IV STA (17:48)
[2020-10-05 08:13] LABS: Calcium 9.1 mg/dL (8.4-10.2); Potassium 4.1 mmol/L (3.5-5.1)
[2020-10-05] MEDS: hydrALAZINE HCL 25 MG TAB PO SCH ×3 (09:44→20:56)
[2020-10-05] MEDS: FUROSEMIDE 20 MG TAB PO SCH ×2 (09:44→17:28)
[2020-10-05] MEDS: ASPIRIN 81 MG PO SCH (09:44)
[2020-10-05] MEDS: HEPARIN SODIUM,PORCINE/PF 5,000 UNIT/0.5 ML SYRINGE SQ SCH ×2 (09:44→20:56)
[2020-10-05] MEDS: ANAGRELIDE 1 MG PO SCH ×3 (09:47→20:56)
--- NOTE | 2020-10-05 10:23 | P.PN ---
Subjective Patient is seen in follow-up for acute kidney injury on chronic kidney disease, currently hemodialysis dependent. Maintained on oral Lasix. States he is making urine but not a significant amount. Currently on 5 L high flow cannula. No active complaints. No problems with dialysis yesterday. Vital signs are stable. General: The patient appeared well nourished and normally developed. HEENT: Head exam is unremarkable. On nasal cannula. LUNGS: Breath sounds decreased. HEART: Rate and Rhythm are regular. ABDOMEN: Soft, no distention. EXTREMITITES: Trace edema. Objective - Vital Signs Vital signs: Vital Signs Temp 98.4 F 10/05/20 04:00 Pulse 70 10/05/20 04:00 Resp 18 10/05/20 04:00 BP 161/67 10/05/20 04:00 Pulse Ox 93 L 10/05/20 04:00 Intake & Output 10/04/20 10/05/20 10/05/20 18:59 06:59 18:59 Intake Total 600 100 240 Output Total 2000 150 Balance -1400 -50 240 Weight 74 kg Intake: IV 120 0.9 20 Oral 480 100 240 Output: Urine 150 Hemodialysis 2000 Other: Voiding Method Urinal Urinal Diaper Diaper Incontinent # Voids 1 - Labs CBC & Chem 7: 10/04/20 06:27 10/05/20 07:36 Labs: Abnormal Lab Results - Last 24 Hours (Table) 10/05/20 Range/Units 07:36 Carbon Dioxide 33 H (22-30) mmol/L BUN 45 H (9-20) mg/dL Creatinine 2.39 H (0.66-1.25) mg/dL Glucose 100 H (74-99) mg/dL Assessment and Plan Plan: Assessment: 1. Acute kidney injury secondary to ATN secondary to cardiorenal syndrome. Currently hemodialysis dependent. 2. Chronic kidney disease stage IV with baseline creatinine near 3. 3. Acute on chronic diastolic CHF with moderate mitral regurgitation and mild to moderate tricuspid regurgitation and pulmonary hypertension. 4. Volume overload. Improving with ultrafiltration. 5. Hyperkalemia secondary to acute kidney injury. Improved postdialysis. 6. Anemia of chronic disease. Iron deficiency noted - s/p IV iron. Maintained on Aranesp. Plan: Hemodialysis tomorrow. Maintain oral Lasix. Phosphorus level normal. Monitor for renal recovery outpatient.
--- NOTE | 2020-10-05 12:23 | P.PN ---
Subjective Progress Note Date: 10/05/20 Acute exacerbation of chronic diastolic congestive heart failure, valvular heart disease This is an 84-year-old male, who presented to the emergency room on September 25. He came with complaints of shortness of breath. He has a history of essential hypertension, chronic anemia, heart failure, and chronic kidney disease. The patient states that for 4 or 5 days prior to admission, he was having chest farshad estion, and shortness of breath. The shortness of breath was worse when he lays flat, and better when he sat up. He apparently went over to urgent care and they were concerned about the fact his oxygen saturations were low, and he was transferred to the emergency room where he was evaluated and admitted with a diagnosis of CHF. We are asked to see him only today. In addition, the patient had lower extremity edema, but denied any chest pain or chest discomfort. Currently, the patient's on 6 L nasal cannula, and is not receiving IV fluids. White count 8.4, hemoglobin 10.9, hematocrit 36.1, platelet count 596,000. PT, INR, and PTT are all normal. Sodium 141, potassium 5.1, chlorides 106, CO2 26, anion gap 9, BUN 112, and creatinine 3.89. N-terminal proBNP was 10,300. Chest x-ray was consistent with fluid overload/CHF. The patient is seen today 09/28/2020 in follow-up on the selective care unit. He is doing a bit better today compared to yesterday. He is currently on 6 L high flow nasal cannula. O2 saturation 91%. He is afebrile. Hemodynamically stable. Sodium 142. Potassium 4.3. BUN 127. Creatinine 4.14. He remains on Lasix 60 mg IV every 8 hours. Incontinent of urine. No accurate I&O. The patient is seen today the 2020 in follow-up on the selective care unit. He is currently resting quite comfortably in bed. Awake and alert in no acute distress. He remains on 6 L high flow nasal cannula. Current O2 saturation 92%. White count 7.5. Hemoglobin 9.8. Sodium 140. Potassium 5.6. BUN 141. Creatinine 4.74. He remains on Lasix 60 mg IV every 8 hours. The plan is for renal replacement therapy. Catheter to be placed by vascular. He remains on b ronchodilators. Heparin for DVT prophylaxis. The patient is seen today 09/30/2020 in follow-up on the selective care unit. Awake and alert in no acute distress. He is requiring 10 L high flow nasal cannula now. Chest x-ray continues to show evidence of congestive heart failure with cardiomegaly and a small left greater than right pleural effusion with worsening interstitial edema. He is currently on Lasix 60 mg IV every 8 hours. He did have a right groin hemodialysis catheter placed yesterday. Plan is for hemodialysis today. Sodium 140. Potassium 5.5. Bicarb 25. BUN 151. Creatinine 4.76. He remains on bronchodilators. Heparin for DVT prophylaxis. The patient is seen today 10/01/2020 in follow-up on the selective care unit. He is currently resting comfortably in bed. Awake and alert in no acute distress. He is still requiring 10 L high flow nasal cannula to maintain O2 saturations in the 90s. Chest x-ray reveals cardiomegaly with probable small left pleural effusion and mild central vascular congestion. Left greater than right bibasilar atelectasis/infiltrate. Sodium 142. Potassium 5.0. BUN 113. Creatinine 4.05. Remains on Lasix 60 mg IV every 8 hours. He did receive dialysis yesterday with 2 L of ultrafiltration. Continues to make urine. He remains on bronchodilators. Heparin for DVT prophylaxis. On 10/02/2020 , This morning, the patient requires still 15 L of Oxymizer cannula to maintain a saturation of around 91%. the patient has multiple medical problems and comorbidities. The patient diastolic heart failure. The patient also has chronic stage V kidney disease and the patient is going to be started on hemodialysis. He is resting comfortably in bed. Oxygen requirements remained high at 15 L. He remains on Lasix 60 mg by mouth twice a day. Procardia for blood pressure control in addition to Corgard. Urine output has been in the order of -1.6 L over the past 24 hours. The weight has been essentially unchanged. He still at 74-75 kg. The patient's most recent chest x-ray showing cardiomegaly, small left-sided pleural effusion, mild pulmonary vessel congestion, atelectatic changes in lung bases bilaterally. The patient remains afebrile. Despite high oxygen requirements, the patient is still stable clinically and is not having any worsening shortness of breath 10/03/2020 the patient is calm and comfortable without having any labored breathing and the patient is sitting up on a recliner reading a newspaper. His oxygenation is improved and the patient is currently on 6 L about 2 by nasal cannula. Note that the patient underwent hemodialysis with ultrafiltration and there was removal of 2 L of fluid yesterday without any major difficulties. He remains hemodynamically stable and for now he is in a negative fluid balance. Echocardiogram was repeated and the patient was found to have an ejection fraction of 50-55%. Normal LV. Normal RV. Some mild diastolic dysfunction. The patient had moderate to severe pulmonary hypertension. Right-sided pressures were quite elevated at 75 mmHg. Small pericardial effusion and moderate pleural effusion was seen. She remains on Lasix 60 mg IV every 12 hours and the patient's has blood work that showed a creatinine of 2.77 with a BUN of 68. Electrolytes are all within normal limits. On today's evaluation of 10/04/2020 the patient's postdialysis. Underwent d ialysis today and a total of 2 L of fluid was removed. A CAT scan of the chest was done yesterday showed bilateral pleural effusion slightly worse on the left and the patient also had some atelectatic changes in lung bases bilaterally. There was no evidence of any malignancy. I reviewed the CAT scan images and based on the reports, there is atelectatic changes more so on the left in addition to effusions and cardiomegaly. This is consistent with for overload. Otherwise, the patient is not having any significant respiratory distress. Urine output has been minimal at this point in time. No cough. No sputum production. Wean down to 4 L of oxygen by nasal cannula and his doing well for now. Blood work was reviewed. He is afebrile. He is hemodynamically stable. Hemoglobin is at 8.6. The patient remains on Lasix at a dose of 60 mg by mouth twice a day. 10/05/2020, the patient is being seen for a follow-up. Note that this patient's oxygenation was gradually getting better as the patient was undergoing hemodialysis. He was weaned down yesterday down to 4 L of oxygen by nasal cannula. On today's evaluation, the patient is 5 L of oxygen by nasal cannula. He does have diminished breath on the lung bases bilaterally more so on the left related to some bilateral pleural ef fusion. He remains on Lasix extubated milligrams by mouth twice a day. His last session of hemodialysis was yesterday without a total of 2 L of ultrafiltration was done. No complaints. No chest pain. No angina. No palpitation. Echocardiogram shows a preserved LV function. He has severe pulmo nary hypertension. Right-sided pressures are quite elevated. Small pericardial effusion. His blood work from today is showing a creatinine of 2.3 with a mean of 45 and electrolytes are normal with a potassium level of 4.1. Afebrile. Hemodynamically stable. Objective - Vital Signs Vital signs: Vital Signs Temp 98.3 F 10/05/20 08:40 Pulse 66 10/05/20 08:40 Resp 18 10/05/20 08:40 BP 157/74 10/05/20 08:40 Pulse Ox 91 L 10/05/20 08:40 Intake & Output 10/04/20 10/05/20 10/05/20 18:59 06:59 18:59 Intake Total 600 100 240 Output Total 2000 150 Balance -1400 -50 240 Weight 74 kg Intake: IV 120 0.9 20 Oral 480 100 240 Output: Urine 150 Hemodialysis 2000 Other: Voiding Method Urinal Urinal Urinal Diaper Diaper Diaper Incontinent # Voids 1 - Exam GENERAL EXAM: Alert, pleasant 85-year-old gentleman, on 4-5 L nasal cannula, comfortable in no apparent distress. HEAD: Normocephalic. EYES: Normal reaction of pupils, equal size. NOSE: Clear with pink turbinates. THROAT: No erythema or exudates. NECK: No masses, no JVD. CHEST: No chest wall deformity. LUNGS: Equal air entry with crackles in the bilateral bases. CVS: S1 and S2 normal with no audible murmur, regular rhythm. ABDOMEN: No hepatosplenomegaly, normal bowel sounds, no guarding or rigidity. SPINE: No scoliosis or deformity SKIN: No rashes CENTRAL NERVOUS SYSTEM: No focal deficits, tone is normal in all 4 extremities. EXTREMITIES: There is 1-2+ peripheral edema. No clubbing, no cyanosis. Peripheral pulses are intact. - Labs CBC & Chem 7: 10/04/20 06:27 10/05/20 07:36 Labs: Abnormal Lab Results - Last 24 Hours (Table) 10/05/20 Range/Units 07:36 Carbon Dioxide 33 H (22-30) mmol/L BUN 45 H (9-20) mg/dL Creatinine 2.39 H (0.66-1.25) mg/dL Glucose 100 H (74-99) mg/dL Assessment and Plan Plan: 1 Acute hypoxemic respiratory failure secondary to an acute exacerbation of chronic diastolic heart disease, along with a component of fluid overload and bilateral pleural effusions currently on 4L of oxygen by nasal cannula. The patient's oxygenation has been improving and the CAT scan of the chest was done and it showed bilateral pleural effusions and consolidations and atelectatic changes probably due to fluid overload and the patient is improving with dialysis and ultrafiltration. Currently down to 4 L of oxygen by nasal cannula and the patient can be weaned down further. CAT scan of the chest was noted. 2 Valvular heart disease secondary pulmonary hypertension based on echocardiogram from 2019. Repeat echo cardiac exam showing severe pulmonary hypertension with a PA pressure of 78. LV is within normal limits. 3 Chronic kidney disease with worsening renal function. Unable to quantify his urine output because of incontinence and the patient is going to undergo hemodialysis today 4 History of hypertension 5 Gout 6 Chronic anemia 7 Lifelong nonsmoker 8 Chronic pulmonary hypertension, likely secondary, may benefit from a right- sided cardiac catheter later stage to investigate his pulmonary hypertension. Plan: Repeat echocardiogram was noted and may consider a right-sided cardiac cath regarding only hypertension evaluation. This is considered to be secondary pulmonary hypertension for now. Oxygenation has been improving, currently on 4-5 L of oxygen by nasal cannula A noncontrast CAT scan of the chest was obtained and the results were reviewed and is consistent with fluid overload and bilateral pleural effusion and atelectatic changes in lung bases The patient is also undergo another session of hemodialysis . We'll perform a thoracentesis if there is any sizable effusion post dialysis. Continue diuretics for now. In fact, I would order an ultrasound to adequately measured any residual pleural effusion and this will be done following his dialysis and any pleural effusion will be accordingly. Continue bronchodilators Continue diuretics Titrate down the FiO2 as tolerated, current pulse ox is 91% on 5 L of oxygen by nasal cannula. We will continue to follow
--- NOTE | 2020-10-05 12:40 | P.PN ---
Subjective 10/05/2020 Pt is seen and examined sitting up in bed in no acute distress. He underwent dialysis yesterday with 2 liters removed. At rest and sitting upright his breathing is stable, however he continues to have orthopnea. Blood pressure 157/74 heart rate 66 afebrile and maintaining oxygen saturation on nasal cannula. Laboratory data reviewed, sodium 137, potassium 4.1 and creatinine 2.39. PHYSICAL EXAMINATION CONSTITUTIONAL: No apparent distress. HEENT: Head is normocephalic. Pupils are equal, round. Sclerae anicteric. Mucous membranes of the mouth are moist. No JVD. No carotid bruit. CHEST EXAMINATION: Clear to auscultation bilaterally, diminished. No chest wall tenderness is noted on palpation or with deep breathing. HEART EXAMINATION: Regular rate and rhythm. S1, S2 heard. Systolic ejection murmur at the apex, no gallops or rub. EXTREMITIES: 2+ peripheral pulses, trace bilateral lower extremity pitting edema and no calf tenderness. ASSESSMENT Acute on chronic diastolic heart failure Acute on chronic kidney disease requiring HD Hypertension, uncontrolled Valvular heart disease PLAN Continue current medical regimen. Dialysis recommendations per nephrology. Nurse Practitioner note has been reviewed, I agree with a documented findings and plan of care. Patient was seen and examined. Objective - Vital Signs Vital signs: Vital Signs Temp 98.3 F 10/05/20 08:40 Pulse 66 10/05/20 08:40 Resp 18 10/05/20 08:40 BP 157/74 10/05/20 08:40 Pulse Ox 91 L 10/05/20 08:40 Intake & Output 10/04/20 10/05/20 10/05/20 18:59 06:59 18:59 Intake Total 600 100 240 Output Total 2000 150 Balance -1400 -50 240 Weight 74 kg Intake: IV 120 0.9 20 Oral 480 100 240 Output: Urine 150 Hemodialysis 1999 Other: Voiding Method Urinal Urinal Urinal Diaper Diaper Diaper Incontinent # Voids 1 - Labs CBC & Chem 7: 10/04/20 06:27 10/05/20 07:36 Labs: Abnormal Lab Results - Last 24 Hours (Table) 10/05/20 Range/Units 07:36 Carbon Dioxide 33 H (22-30) mmol/L BUN 45 H (9-20) mg/dL Creatinine 2.39 H (0.66-1.25) mg/dL Glucose 100 H (74-99) mg/dL
[2020-10-05] MEDS: CALCIUM CARB-VIT D 500 MG-5 MCG TAB PO SCH ×2 (12:44→17:28)
[2020-10-05] MEDS: TAMSULOSIN 0.4 MG CAP.ER.24H PO SCH (12:44)
[2020-10-05] MEDS: allopurinoL 300 MG TAB PO SCH (12:44)
--- NOTE | 2020-10-05 12:57 | P.PN ---
Subjective 84-year-old male came in with comments of shortness of breath or which started about couple days ago feels congested has been waking up for about a week at nighttime. Denied any clear history of orthopnea paroxysmal nocturnal dyspnea in spite of above-mentioned history. Patient doesn't have any history of COPD patient appears to have had chronic diastolic dysfunction in the past. Patient does have pedal edema does have elevated BNP and chest x-ray is consistent with pulmonary edema. Patient doesn't use any oxygen at home presently on 3 L of of oxygen. Patient usually uses 40 twice a day of the oral Lasix. Patient has chronic kidney disease stage IV with baseline creatinine around 3. Patient does have elevated potassium of 5.7 which will be monitored troponin is negative EKG sinus rhythm with frequent PVCs with right bundle branch block and left anterior fascicular block. 09/26/2020 Patient the pedal edema. Straight improved compared to yesterday. Patient fairly feels the same as yesterday. Unable to clearly assess the urine output because of his incontinence. Patient remains on IV Lasix was evaluated by cardiology, there is marginal improvement in serum creatinine from 3.7-3.49. Patient remained short of breath. 09/27/2020 The patient was pretty status is bit worse patient is on 60 mg twice a day of IV Lasix in spite of which patient didn't have any significant improvement in clinical is pretty status and requiring more oxygen because of which I'm consulting nephrology for recommendations regarding Lasix and diuretic therapy patient has wheezing on exam, or feels more short of breath doesn't have any history of COPD patient appears to have cardiac Asthma pulmonary was consulted because of not improvement in his respiratory status. Unable to assess the input and output because of his incontinence patient probably will benefit from Drake catheter. Patient doesn't have any much of pedal edema today. 09/28/2020 Since wheezing improved patient mentions and 6 L of oxygen. Patient was evaluated by nephrology patient creatinine continued to get worse. Patient will be started on hemodialysis. 09/29/2020 Patient 6 L of oxygen. Patient will undergo hemodialysis catheter placement today. he will undergo hemodialysis either today or tomorrow 10/02/2020 Patient is was limb 50 L of oxygen patient received hemodialysis couple days ago will undergo hemodialysis again today. Patient the urine output was a 1.6 L yesterday. Patient can use to have a sided pleural effusion. Patient had pulmonary vascular condition on the chest x-ray which will be repeated tomorrow and patient is afebrile patient doesn't have any leukocytosis. Patient has moderate pulmonary hypertension normal ejection fraction to was 90 minutes with another echocardiogram. 10/03/2020 Patient the head hemodialysis yesterday with removal of 2 L of it. Patient to pulmonary edema as well as pedal edema improved and patient is presently on 6 L of oxygen. Patient feels much better today. 10/04/2020 Patient had hemodialysis yesterday and patient will undergo hemodialysis today as well. Patient is presently on 4 L of oxygen clinically appears to be improving chest x-ray still showing the infiltrate patient had the RVSP consistent with severe pulmonary hypertension RVSP of around 76. 10/05/2020 Patient had dialysis yesterday and did 2 L of fluid was removed yesterday. Patient is presently on 5 L of oxygen. Patient is still having orthopnea. Although his overall clinical status improved significantly compared to couple days ago. Constitutional: Denied any fatigue denied any fever. Cardio vascular: denied any chest pain, palpitations Gastrointestinal denied any nausea vomiting Pulmonary: As mentioned in HPI Neurologic denied any new focal deficits All inpatient medications were reviewed and appropriate changes in these medications as dictated in the interval history and assessment and plan. Objective - Vital Signs Vital signs: Vital Signs Temp 98.3 F 10/05/20 08:40 Pulse 66 10/05/20 08:40 Resp 18 10/05/20 08:40 BP 157/74 10/05/20 08:40 Pulse Ox 91 L 10/05/20 08:40 Intake & Output 10/04/20 10/05/20 10/05/20 18:59 06:59 18:59 Intake Total 600 100 240 Output Total 1999 150 Balance -1400 -50 240 Weight 74 kg Intake: IV 120 0.9 20 Oral 480 100 240 Output: Urine 150 Hemodialysis 1999 Other: Voiding Method Urinal Urinal Urinal Diaper Diaper Diaper Incontinent # Voids 1 - Exam PHYSICAL EXAMINATION: GENERAL: The patient is alert and oriented x3, not in any acute distress. Well developed, well nourished. HEENT: Pupils are round and equally reacting to light. EOMI. No scleral icterus. No conjunctival pallor. Normocephalic, atraumatic. No pharyngeal erythema. No thyromegaly. CARDIOVASCULAR: S1 and S2 present. No murmurs, rubs, or gallops. PULMONARY: No wheezing or crackles noted into bilateral lung louise. ABDOMEN: Soft, nontender, nondistended, normoactive bowel sounds. No palpable or ganomegaly. MUSCULOSKELETAL: No joint swelling or deformity. EXTREMITIES: No cyanosis, clubbing, bilateral pitting pedal edema, which improved NEUROLOGICAL: Gross neurological examination did not reveal any focal deficits. SKIN: No rashes. - Labs CBC & Chem 7: 10/04/20 06:27 10/05/20 07:36 Labs: Abnormal Lab Results - Last 24 Hours (Table) 10/05/20 Range/Units 07:36 Carbon Dioxide 33 H (22-30) mmol/L BUN 45 H (9-20) mg/dL Creatinine 2.39 H (0.66-1.25) mg/dL Glucose 100 H (74-99) mg/dL Assessment and Plan Plan: -Acute hypoxic respiratory failure: Secondary to congestive heart failure exacerbation patient probably has chronic diastolic dysfunction with acute exacerbation. Patient is presently on hemodialysis patient does have a cardiorenal syndrome. 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
[2020-10-05] MEDS: IPRATROPIUM-ALBUTEROL 3 ML NEB INHALATION PRN (16:11)
--- NOTE | 2020-10-06 08:06 | US ---
EXAMINATION TYPE: US chest DATE OF EXAM: 10/06/2020 COMPARISON: NONE CLINICAL HISTORY: pleural effusion. Known pleural effusion, SOB TECHNIQUE: Targeted ultrasound of the posterior lower Bilateral EXAM MEASUREMENTS: Right Pleural Effusion pocket size: 11.2 cm Left Pleural Effusion pocket size: 7.0 cm Left skin surface to fluid distance: 2.3 cm Right side NOT marked due to large tissue seen within pocket Left side marked for possible thoracentesis outside the dept. Pulmonologists are able to review the images in the patient?s EMR. IMPRESSIONS: 1. Bilateral pleural effusions with pocket sizes, as described above.
[2020-10-06] MEDS: ASPIRIN 81 MG PO SCH (08:57)
[2020-10-06] MEDS: ANAGRELIDE 1 MG PO SCH ×3 (08:57→22:15)
[2020-10-06] MEDS: hydrALAZINE HCL 25 MG TAB PO SCH (08:58)
[2020-10-06] MEDS: HEPARIN SODIUM,PORCINE/PF 5,000 UNIT/0.5 ML SYRINGE SQ SCH ×2 (08:58→22:14)
[2020-10-06] MEDS: FUROSEMIDE 20 MG TAB PO SCH ×2 (08:58→14:59)
--- NOTE | 2020-10-06 10:26 | P.PN ---
Subjective Patient is seen in follow-up for acute kidney injury on chronic kidney disease, currently hemodialysis dependent. Maintained on oral Lasix. Making some urine. Currently on 5 L high flow cannula. No active complaints. No active complaints. Vital signs are stable. General: The patient appeared well nourished and normally developed. HEENT: Head exam is unremarkable. On nasal cannula. LUNGS: Breath sounds decreased. HEART: Rate and Rhythm are regular. ABDOMEN: Soft, no distention. EXTREMITITES: Trace edema. Objective - Vital Signs Vital signs: Vital Signs Temp 98.3 F 10/06/20 08:53 Pulse 73 10/06/20 08:53 Resp 18 10/06/20 08:53 BP 178/81 10/06/20 08:53 Pulse Ox 93 L 10/06/20 08:53 Intake & Output 10/05/20 10/06/20 10/06/20 18:59 06:59 18:59 Intake Total 1390 240 Output Total 150 100 400 Balance 1240 -100 -160 Weight 73.9 kg Intake: IV 10 Invasive Line 1 10 Oral 1380 240 Output: Urine 150 100 400 Other: Voiding Method Urinal Urinal Diaper Diaper - Labs CBC & Chem 7: 10/04/20 06:27 10/05/20 07:36 Assessment and Plan Plan: Assessment: 1. Acute kidney injury secondary to ATN secondary to cardiorenal syndrome. Currently hemodialysis dependent. 2. Chronic kidney disease stage IV with baseline creatinine near 3. 3. Acute on chronic diastolic CHF with moderate mitral regurgitation and mild to moderate tricuspid regurgitation and pulmonary hypertension. 4. Volume overload. Improving with ultrafiltration. 5. Hyperkalemia secondary to acute kidney injury. Improved postdialysis. 6. Anemia of chronic disease. Iron deficiency noted - s/p IV iron. Maintained on Aranesp. 7. Hypertension with chronic kidney disease. Plan: Hemodialysis today. He will be maintained on a Friday schedule outpatient. Maintain oral Lasix. Phosphorus level normal. Increase hydralazine 200 mg 3 times daily. To be held for systolic blood pressure less than 125. Monitor for renal recovery outpatient.
[2020-10-06] MEDS: CALCIUM CARB-VIT D 500 MG-5 MCG TAB PO SCH ×2 (12:09→15:47)
[2020-10-06] MEDS: allopurinoL 300 MG TAB PO SCH (12:10)
[2020-10-06] MEDS: TAMSULOSIN 0.4 MG CAP.ER.24H PO SCH (12:10)
--- NOTE | 2020-10-06 12:49 | P.PN ---
Subjective Patient seen and examined sitting up in bed in no acute distress. He states he is comfortable while sitting up however continues to have episodes of shortness of breath when he attempts to lay flat. Ultrasound was obtained of his chest this morning revealing bilateral pleural effusions, right pocket size 11.2 cm and left pocket site 7 cm. Blood pressure currently 178/81 heart rate 73 afebrile maintaining oxygen saturation on nasal cannula. Currently maintained on nifedipine 60 mg twice a day, nadolol 40 mg in the morning and 20 mg at bedt nikhil, hydralazine 100 mg 3 times a day, Lasix 60 mg by mouth twice a day and aspirin 81 mg daily. Nephrology is planning for dialysis treatment today. PHYSICAL EXAMINATION CONSTITUTIONAL: No apparent distress. HEENT: Head is normocephalic. Pupils are equal, round. Sclerae anicteric. Mucous membranes of the mouth are moist. No JVD. No carotid bruit. CHEST EXAMINATION: Clear to auscultation bilaterally, diminished. No chest wall tenderness is noted on palpation or with deep breathing. HEART EXAMINATION: Regular rate and rhythm. S1, S2 heard. Systolic ejection murmur at the apex, no gallops or rub. EXTREMITIES: 2+ peripheral pulses, trace bilateral lower extremity pitting edema and no calf tenderness. ASSESSMENT Acute on chronic diastolic heart failure Acute on chronic kidney disease requiring HD Hypertension, uncontrolled Valvular heart disease PLAN Continue current medical regimen. Dialysis recommendations per nephrology. Possible thoracentesis today. Nurse Practitioner note has been reviewed, I agree with a documented findings and plan of care. Patient was seen and examined. Objective - Vital Signs Vital signs: Vital Signs Temp 98.3 F 10/06/20 08:53 Pulse 73 10/06/20 08:53 Resp 18 10/06/20 08:53 BP 178/81 10/06/20 08:53 Pulse Ox 93 L 10/06/20 08:53 Intake & Output 10/05/20 10/06/20 10/06/20 18:59 06:59 18:59 Intake Total 1390 240 Output Total 150 100 400 Balance 1240 -100 -160 Weight 73.9 kg Intake: IV 10 Invasive Line 1 10 Oral 1380 240 Output: Urine 150 100 400 Other: Voiding Method Urinal Urinal Urinal Diaper Diaper Diaper - Labs CBC & Chem 7: 10/04/20 06:27 10/05/20 07:36
--- NOTE | 2020-10-06 14:35 | P.PN ---
Subjective Progress Note Date: 10/06/20 Acute exacerbation of chronic diastolic congestive heart failure, valvular heart disease This is an 84-year-old male, who presented to the emergency room on September 25. He came with complaints of shortness of breath. He has a history of essential hypertension, chronic anemia, heart failure, and chronic kidney disease. The patient states that for 4 or 5 days prior to admission, he was having chest farshad estion, and shortness of breath. The shortness of breath was worse when he lays flat, and better when he sat up. He apparently went over to urgent care and they were concerned about the fact his oxygen saturations were low, and he was transferred to the emergency room where he was evaluated and admitted with a diagnosis of CHF. We are asked to see him only today. In addition, the patient had lower extremity edema, but denied any chest pain or chest discomfort. Currently, the patient's on 6 L nasal cannula, and is not receiving IV fluids. White count 8.4, hemoglobin 10.9, hematocrit 36.1, platelet count 596,000. PT, INR, and PTT are all normal. Sodium 141, potassium 5.1, chlorides 106, CO2 26, anion gap 9, BUN 112, and creatinine 3.89. N-terminal proBNP was 10,300. Chest x-ray was consistent with fluid overload/CHF. The patient is seen today 09/28/2020 in follow-up on the selective care unit. He is doing a bit better today compared to yesterday. He is currently on 6 L high flow nasal cannula. O2 saturation 91%. He is afebrile. Hemodynamically stable. Sodium 142. Potassium 4.3. BUN 127. Creatinine 4.14. He remains on Lasix 60 mg IV every 8 hours. Incontinent of urine. No accurate I&O. The patient is seen today the 2020 in follow-up on the selective care unit. He is currently resting quite comfortably in bed. Awake and alert in no acute distress. He remains on 6 L high flow nasal cannula. Current O2 saturation 92%. White count 7.5. Hemoglobin 9.8. Sodium 140. Potassium 5.6. BUN 141. Creatinine 4.74. He remains on Lasix 60 mg IV every 8 hours. The plan is for renal replacement therapy. Catheter to be placed by vascular. He remains on b ronchodilators. Heparin for DVT prophylaxis. The patient is seen today 09/30/2020 in follow-up on the selective care unit. Awake and alert in no acute distress. He is requiring 10 L high flow nasal cannula now. Chest x-ray continues to show evidence of congestive heart failure with cardiomegaly and a small left greater than right pleural effusion with worsening interstitial edema. He is currently on Lasix 60 mg IV every 8 hours. He did have a right groin hemodialysis catheter placed yesterday. Plan is for hemodialysis today. Sodium 140. Potassium 5.5. Bicarb 25. BUN 151. Creatinine 4.76. He remains on bronchodilators. Heparin for DVT prophylaxis. The patient is seen today 10/01/2020 in follow-up on the selective care unit. He is currently resting comfortably in bed. Awake and alert in no acute distress. He is still requiring 10 L high flow nasal cannula to maintain O2 saturations in the 90s. Chest x-ray reveals cardiomegaly with probable small left pleural effusion and mild central vascular congestion. Left greater than right bibasilar atelectasis/infiltrate. Sodium 142. Potassium 5.0. BUN 113. Creatinine 4.05. Remains on Lasix 60 mg IV every 8 hours. He did receive dialysis yesterday with 2 L of ultrafiltration. Continues to make urine. He remains on bronchodilators. Heparin for DVT prophylaxis. On 10/02/2020 , This morning, the patient requires still 15 L of Oxymizer cannula to maintain a saturation of around 91%. the patient has multiple medical problems and comorbidities. The patient diastolic heart failure. The patient also has chronic stage V kidney disease and the patient is going to be started on hemodialysis. He is resting comfortably in bed. Oxygen requirements remained high at 15 L. He remains on Lasix 60 mg by mouth twice a day. Procardia for blood pressure control in addition to Corgard. Urine output has been in the order of -1.6 L over the past 24 hours. The weight has been essentially unchanged. He still at 74-75 kg. The patient's most recent chest x-ray showing cardiomegaly, small left-sided pleural effusion, mild pulmonary vessel congestion, atelectatic changes in lung bases bilaterally. The patient remains afebrile. Despite high oxygen requirements, the patient is still stable clinically and is not having any worsening shortness of breath 10/03/2020 the patient is calm and comfortable without having any labored breathing and the patient is sitting up on a recliner reading a newspaper. His oxygenation is improved and the patient is currently on 6 L about 2 by nasal cannula. Note that the patient underwent hemodialysis with ultrafiltration and there was removal of 2 L of fluid yesterday without any major difficulties. He remains hemodynamically stable and for now he is in a negative fluid balance. Echocardiogram was repeated and the patient was found to have an ejection fraction of 50-55%. Normal LV. Normal RV. Some mild diastolic dysfunction. The patient had moderate to severe pulmonary hypertension. Right-sided pressures were quite elevated at 75 mmHg. Small pericardial effusion and moderate pleural effusion was seen. She remains on Lasix 60 mg IV every 12 hours and the patient's has blood work that showed a creatinine of 2.77 with a BUN of 68. Electrolytes are all within normal limits. On today's evaluation of 10/04/2020 the patient's postdialysis. Underwent d ialysis today and a total of 2 L of fluid was removed. A CAT scan of the chest was done yesterday showed bilateral pleural effusion slightly worse on the left and the patient also had some atelectatic changes in lung bases bilaterally. There was no evidence of any malignancy. I reviewed the CAT scan images and based on the reports, there is atelectatic changes more so on the left in addition to effusions and cardiomegaly. This is consistent with for overload. Otherwise, the patient is not having any significant respiratory distress. Urine output has been minimal at this point in time. No cough. No sputum production. Wean down to 4 L of oxygen by nasal cannula and his doing well for now. Blood work was reviewed. He is afebrile. He is hemodynamically stable. Hemoglobin is at 8.6. The patient remains on Lasix at a dose of 60 mg by mouth twice a day. 10/05/2020, the patient is being seen for a follow-up. Note that this patient's oxygenation was gradually getting better as the patient was undergoing hemodialysis. He was weaned down yesterday down to 4 L of oxygen by nasal cannula. On today's evaluation, the patient is 5 L of oxygen by nasal cannula. He does have diminished breath on the lung bases bilaterally more so on the left related to some bilateral pleural ef fusion. He remains on Lasix extubated milligrams by mouth twice a day. His last session of hemodialysis was yesterday without a total of 2 L of ultrafiltration was done. No complaints. No chest pain. No angina. No palpitation. Echocardiogram shows a preserved LV function. He has severe pulmo nary hypertension. Right-sided pressures are quite elevated. Small pericardial effusion. His blood work from today is showing a creatinine of 2.3 with a mean of 45 and electrolytes are normal with a potassium level of 4.1. Afebrile. Hemodynamically stable. 10/06/2020, the patient is resting comfortably on a chair. He is on 5 L of oxygen by nasal cannula. He has not undergone his hemodialysis yet. Ultrasound of the chest was done and confirmed bilateral pleural effusion and these are sma ller pockets and a left-sided pleural effusion was marked. Urine output is has approximately 10 mL an hour of urine output. No chest pain. No trouble breathing. No cough or sputum production. No signs of any respiratory decompensation. Objective - Vital Signs Vital signs: Vital Signs Temp 98.2 F 10/06/20 12:09 Pulse 65 10/06/20 12:09 Resp 18 10/06/20 12:09 BP 163/74 10/06/20 12:09 Pulse Ox 96 10/06/20 12:09 Intake & Output 10/05/20 10/06/20 10/06/20 18:59 06:59 18:59 Intake Total 1390 240 Output Total 150 100 400 Balance 1240 -100 -160 Weight 73.9 kg Intake: IV 10 Invasive Line 1 10 Oral 1380 240 Output: Urine 150 100 400 Other: Voiding Method Urinal Urinal Urinal Diaper Diaper Diaper - Exam GENERAL EXAM: Alert, pleasant 85-year-old gentleman, on 4-5 L nasal cannula, comfortable in no apparent distress. HEAD: Normocephalic. EYES: Normal reaction of pupils, equal size. NOSE: Clear with pink turbinates. THROAT: No erythema or exudates. NECK: No masses, no JVD. CHEST: No chest wall deformity. LUNGS: Equal air entry with crackles in the bilateral bases. CVS: S1 and S2 normal with no audible murmur, regular rhythm. ABDOMEN: No hepatosplenomegaly, normal bowel sounds, no guarding or rigidity. SPINE: No scoliosis or deformity SKIN: No rashes CENTRAL NERVOUS SYSTEM: No focal deficits, tone is normal in all 4 extremities. EXTREMITIES: There is 1-2+ peripheral edema. No clubbing, no cyanosis. Peripheral pulses are intact. - Labs CBC & Chem 7: 10/04/20 06:27 10/05/20 07:36 Assessment and Plan Plan: 1 Acute hypoxemic respiratory failure secondary to an acute exacerbation of chronic diastolic heart disease, along with a component of fluid overload and bilateral pleural effusions currently on 4L of oxygen by nasal cannula. The patient's oxygenation has been improving and the CAT scan of the chest was done and it showed bilateral pleural effusions and consolidations and atelectatic changes probably due to fluid overload and the patient is improving with dialysis and ultrafiltration. Currently down to 4-5 L of oxygen by nasal cannula and the patient can be weaned down further. CAT scan of the chest was noted. His was also noted during showed bilateral pleural effusions and a left- sided pleural effusion was marked. 2 Valvular heart disease secondary pulmonary hypertension based on echocardiogram from 2019. Repeat echo cardiac exam showing severe pulmonary hypertension with a PA pressure of 78. LV is within normal limits. 3 Chronic kidney disease with worsening renal function. Unable to quantify his urine output because of incontinence and the patient is going to undergo hemodialysis today 4 History of hypertension 5 Gout 6 Chronic anemia 7 Lifelong nonsmoker 8 Chronic pulmonary hypertension, likely secondary, may benefit from a right-sided cardiac catheter later stage to investigate his pulmonary hypertension. Plan: To wean down the FiO2 Proceed with hemodialysis today With thoracentesis today Continue bronchodilators Continue diuretics Titrate down the FiO2 as tolerated, current pulse ox is 91% on 5 L of oxygen by nasal cannula. We will continue to follow
[2020-10-06] MEDS: hydrALAZINE HCL 50 MG TAB PO SCH ×2 (14:59→22:14)
--- NOTE | 2020-10-06 15:29 | P.PCN ---
Date of Procedure: 10/06/20 Preoperative Diagnosis: Pleural effusion, left-sided Postoperative Diagnosis: Pleural effusion, left-sided Procedure(s) Performed: Thoracentesis, left-sided Anesthesia: local Surgeon: Yvonne Whitley Estimated Blood Loss (ml): 0 Pathology: other Condition: stable Disposition: floor Operative Findings: A time out was performed and the chest x-ray was reviewed, the appropriate side was confirmed and marked. My hands were washed immediately prior to the procedure. I wore a surgical cap, mask with protective eyewear, sterile gown and sterile gloves throughout the procedure. The patient was prepped and draped in a sterile manner using chlorhexidine scrub after the appropriate level was percussed and confirmed by ultrasound. 1% lidocaine was used to anesthesize the skin, subcutaneous tissue, superior aspect of the rib periosteum and parietal pleura. A finder needle was then introduced over the superior aspect of the rib to locate the pleural fluid; 2colored fluid was aspirated at a depth of approximately 2 cm. A 10-blade scalpel was used to alex the skin at the inserti on site. The [id number] needle was then introduced through the skin incision into the pleural space using negative aspiration pressure and the red colometric indicator to confirm appropriate positioning of the needle. The thoracentesis catheter was then threaded without difficulty. 750 ml of turbid colored fluid was removed without difficulty. The catheter was then removed. No immediate complications were noted during the procedure. A post-procedure chest x-ray is pending at the time of this note. The fluid will be sent for studies. Estimated blood loss is 0cc
--- NOTE | 2020-10-06 15:40 | P.PN ---
Subjective Progress Note Date: 10/06/20 Principal diagnosis: Acute exacerbation diastolic CHF Valvular heart disease End-stage renal disease/hemodialysis 10/06/2020, the patient is seen and evaluated resting comfortably on a chair; discussed with nursing staff . Waiting for hemodialysis He is on 5 L of oxygen by nasal cannula. He has not undergone his hemodialysis yet. Ultrasound of the chest was done by pulmonary service and confirmed bilateral pleural effusion and these are smaller pockets and a left-sided pleural effusion was marked. Urine output is has approximately 10 mL an hour of urine output. No chest pain. No trouble breathing. No cough or sputum production. No signs of any respiratory decompensation. Nephrology on board and recommending hemodialysis with a Friday schedule as outpatient Increase hydralazine 200 mg 3 times daily; Maintain oral Lasix Objective - Vital Signs Vital signs: Vital Signs Temp 98.3 F 10/06/20 08:53 Pulse 73 10/06/20 08:53 Resp 18 10/06/20 08:53 BP 178/81 10/06/20 08:53 Pulse Ox 93 L 10/06/20 08:53 Intake & Output 10/05/20 10/06/20 10/06/20 18:59 06:59 18:59 Intake Total 1390 240 Output Total 150 100 400 Balance 1240 -100 -160 Weight 73.9 kg Intake: IV 10 Invasive Line 1 10 Oral 1380 240 Output: Urine 150 100 400 Other: Voiding Method Urinal Urinal Urinal Diaper Diaper Diaper - Exam General: The patient appeared well nourished and normally developed. HEENT: Head exam is unremarkable. On nasal cannula. LUNGS: Breath sounds decreased. HEART: Rate and Rhythm are regular. ABDOMEN: Soft, no distention. EXTREMITITES: Trace edema. - Labs CBC & Chem 7: 10/04/20 06:27 10/05/20 07:36 Assessment and Plan Assessment: -Acute hypoxic respiratory failure: Secondary to congestive heart failure exacerbation patient probably has chronic diastolic dysfunction with acute exacerbation. Patient is presently on hemodialysis patient does have a cardi orenal syndrome. 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
--- NOTE | 2020-10-06 16:08 | XR ---
EXAMINATION TYPE: XR chest 1V DATE OF EXAM: 10/06/2020 HISTORY: post thoracentesis COMPARISON: 10/04/2020 TECHNIQUE: Single view of the chest is submitted. FINDINGS: Demonstrated are scattered senescent parenchymal change. No evidence for pneumothorax status post thoracentesis on the left. Patchy basilar infiltrates and/or atelectasis with small effusions noted. The heart is stable. Hilar and mediastinal structures are within normal limits. Degenerative changes are seen of the dorsal spine. IMPRESSION: 1. No evidence for pneumothorax status post thoracentesis on the left. Patchy basilar infiltrates an d/or atelectasis with small effusions noted.
[2020-10-07 02:06] LABS: Glucose, BF Source Pleural Fluid; Glucose, Body Fluid 125 mg/dL; LDH, Body Fluid Source Pleural Fluid
[2020-10-07] MEDS: ASPIRIN 81 MG PO SCH (08:26)
[2020-10-07] MEDS: FUROSEMIDE 20 MG TAB PO SCH ×2 (08:26→15:24)
[2020-10-07] MEDS: hydrALAZINE HCL 50 MG TAB PO SCH ×3 (08:26→20:52)
[2020-10-07] MEDS: HEPARIN SODIUM,PORCINE/PF 5,000 UNIT/0.5 ML SYRINGE SQ SCH ×2 (08:26→20:52)
[2020-10-07] MEDS: ANAGRELIDE 1 MG PO SCH ×3 (08:28→20:52)
--- NOTE | 2020-10-07 11:16 | P.PN ---
Subjective Progress Note Date: 10/07/20 Acute exacerbation of chronic diastolic congestive heart failure, valvular heart disease This is an 84-year-old male, who presented to the emergency room on September 25. He came with complaints of shortness of breath. He has a history of essential hypertension, chronic anemia, heart failure, and chronic kidney disease. The patient states that for 4 or 5 days prior to admission, he was having chest farshad estion, and shortness of breath. The shortness of breath was worse when he lays flat, and better when he sat up. He apparently went over to urgent care and they were concerned about the fact his oxygen saturations were low, and he was transferred to the emergency room where he was evaluated and admitted with a diagnosis of CHF. We are asked to see him only today. In addition, the patient had lower extremity edema, but denied any chest pain or chest discomfort. Currently, the patient's on 6 L nasal cannula, and is not receiving IV fluids. White count 8.4, hemoglobin 10.9, hematocrit 36.1, platelet count 596,000. PT, INR, and PTT are all normal. Sodium 141, potassium 5.1, chlorides 106, CO2 26, anion gap 9, BUN 112, and creatinine 3.89. N-terminal proBNP was 10,300. Chest x-ray was consistent with fluid overload/CHF. The patient is seen today 09/28/2020 in follow-up on the selective care unit. He is doing a bit better today compared to yesterday. He is currently on 6 L high flow nasal cannula. O2 saturation 91%. He is afebrile. Hemodynamically stable. Sodium 142. Potassium 4.3. BUN 127. Creatinine 4.14. He remains on Lasix 60 mg IV every 8 hours. Incontinent of urine. No accurate I&O. The patient is seen today the 2020 in follow-up on the selective care unit. He is currently resting quite comfortably in bed. Awake and alert in no acute distress. He remains on 6 L high flow nasal cannula. Current O2 saturation 92%. White count 7.5. Hemoglobin 9.8. Sodium 140. Potassium 5.6. BUN 141. Creatinine 4.74. He remains on Lasix 60 mg IV every 8 hours. The plan is for renal replacement therapy. Catheter to be placed by vascular. He remains on b ronchodilators. Heparin for DVT prophylaxis. The patient is seen today 09/30/2020 in follow-up on the selective care unit. Awake and alert in no acute distress. He is requiring 10 L high flow nasal cannula now. Chest x-ray continues to show evidence of congestive heart failure with cardiomegaly and a small left greater than right pleural effusion with worsening interstitial edema. He is currently on Lasix 60 mg IV every 8 hours. He did have a right groin hemodialysis catheter placed yesterday. Plan is for hemodialysis today. Sodium 140. Potassium 5.5. Bicarb 25. BUN 151. Creatinine 4.76. He remains on bronchodilators. Heparin for DVT prophylaxis. The patient is seen today 10/01/2020 in follow-up on the selective care unit. He is currently resting comfortably in bed. Awake and alert in no acute distress. He is still requiring 10 L high flow nasal cannula to maintain O2 saturations in the 90s. Chest x-ray reveals cardiomegaly with probable small left pleural effusion and mild central vascular congestion. Left greater than right bibasilar atelectasis/infiltrate. Sodium 142. Potassium 5.0. BUN 113. Creatinine 4.05. Remains on Lasix 60 mg IV every 8 hours. He did receive dialysis yesterday with 2 L of ultrafiltration. Continues to make urine. He remains on bronchodilators. Heparin for DVT prophylaxis. On 10/02/2020 , This morning, the patient requires still 15 L of Oxymizer cannula to maintain a saturation of around 91%. the patient has multiple medical problems and comorbidities. The patient diastolic heart failure. The patient also has chronic stage V kidney disease and the patient is going to be started on hemodialysis. He is resting comfortably in bed. Oxygen requirements remained high at 15 L. He remains on Lasix 60 mg by mouth twice a day. Procardia for blood pressure control in addition to Corgard. Urine output has been in the order of -1.6 L over the past 24 hours. The weight has been essentially unchanged. He still at 74-75 kg. The patient's most recent chest x-ray showing cardiomegaly, small left-sided pleural effusion, mild pulmonary vessel congestion, atelectatic changes in lung bases bilaterally. The patient remains afebrile. Despite high oxygen requirements, the patient is still stable clinically and is not having any worsening shortness of breath 10/03/2020 the patient is calm and comfortable without having any labored breathing and the patient is sitting up on a recliner reading a newspaper. His oxygenation is improved and the patient is currently on 6 L about 2 by nasal cannula. Note that the patient underwent hemodialysis with ultrafiltration and there was removal of 2 L of fluid yesterday without any major difficulties. He remains hemodynamically stable and for now he is in a negative fluid balance. Echocardiogram was repeated and the patient was found to have an ejection fraction of 50-55%. Normal LV. Normal RV. Some mild diastolic dysfunction. The patient had moderate to severe pulmonary hypertension. Right-sided pressures were quite elevated at 75 mmHg. Small pericardial effusion and moderate pleural effusion was seen. She remains on Lasix 60 mg IV every 12 hours and the patient's has blood work that showed a creatinine of 2.77 with a BUN of 68. Electrolytes are all within normal limits. On today's evaluation of 10/04/2020 the patient's postdialysis. Underwent d ialysis today and a total of 2 L of fluid was removed. A CAT scan of the chest was done yesterday showed bilateral pleural effusion slightly worse on the left and the patient also had some atelectatic changes in lung bases bilaterally. There was no evidence of any malignancy. I reviewed the CAT scan images and based on the reports, there is atelectatic changes more so on the left in addition to effusions and cardiomegaly. This is consistent with for overload. Otherwise, the patient is not having any significant respiratory distress. Urine output has been minimal at this point in time. No cough. No sputum production. Wean down to 4 L of oxygen by nasal cannula and his doing well for now. Blood work was reviewed. He is afebrile. He is hemodynamically stable. Hemoglobin is at 8.6. The patient remains on Lasix at a dose of 60 mg by mouth twice a day. 10/05/2020, the patient is being seen for a follow-up. Note that this patient's oxygenation was gradually getting better as the patient was undergoing hemodialysis. He was weaned down yesterday down to 4 L of oxygen by nasal cannula. On today's evaluation, the patient is 5 L of oxygen by nasal cannula. He does have diminished breath on the lung bases bilaterally more so on the left related to some bilateral pleural ef fusion. He remains on Lasix extubated milligrams by mouth twice a day. His last session of hemodialysis was yesterday without a total of 2 L of ultrafiltration was done. No complaints. No chest pain. No angina. No palpitation. Echocardiogram shows a preserved LV function. He has severe pulmo nary hypertension. Right-sided pressures are quite elevated. Small pericardial effusion. His blood work from today is showing a creatinine of 2.3 with a mean of 45 and electrolytes are normal with a potassium level of 4.1. Afebrile. Hemodynamically stable. 10/06/2020, the patient is resting comfortably on a chair. He is on 5 L of oxygen by nasal cannula. He has not undergone his hemodialysis yet. Ultrasound of the chest was done and confirmed bilateral pleural effusion and these are sma ller pockets and a left-sided pleural effusion was marked. Urine output is has approximately 10 mL an hour of urine output. No chest pain. No trouble breathing. No cough or sputum production. No signs of any respiratory decompensation. 10/07/2020, the patient is post thoracentesis. He also underwent hemodialysis yesterday. His oxygenation is improved and the patient is currently on 2 L with a pulse ox of 95%. A left-sided thoracentesis was done. The fluid is a transudate. The follow-up chest x-ray shows improvement in left-sided pleural effusion. There is some residual pleural effusion on the right. The patient is currently on diuretics. He is producing urine output. No complaints. We were even able to to wean him down to room air oxygen. Objective - Vital Signs Vital signs: Vital Signs Temp 97.9 F 10/07/20 04:16 Pulse 89 10/07/20 04:16 Resp 18 10/07/20 04:16 BP 164/72 10/07/20 04:16 Pulse Ox 95 10/07/20 04:16 Intake & Output 10/06/20 10/07/20 10/07/20 18:59 06:59 18:59 Intake Total 540 500 118 Output Total 1150 1500 200 Balance -610 -1000 -82 Weight 68 kg Intake: Oral 540 200 118 Hemodialysis 300 Output: Urine 400 200 200 Hemodialysis 1300 Other 750 Other: Voiding Method Urinal Urinal Diaper Diaper # Voids 1 # Bowel Movements 1 - Exam GENERAL EXAM: Alert, pleasant 85-year-old gentleman, on RA , comfortable in no apparent distress. HEAD: Normocephalic. EYES: Normal reaction of pupils, equal size. NOSE: Clear with pink turbinates. THROAT: No erythema or exudates. NECK: No masses, no JVD. CHEST: No chest wall deformity. LUNGS: Equal air entry with crackles in the bilateral bases. CVS: S1 and S2 normal with no audible murmur, regular rhythm. ABDOMEN: No hepatosplenomegaly, normal bowel sounds, no guarding or rigidity. SPINE: No scoliosis or deformity SKIN: No rashes CENTRAL NERVOUS SYSTEM: No focal deficits, tone is normal in all 4 extremities. EXTREMITIES: There is 1-2+ peripheral edema. No clubbing, no cyanosis. Peripheral pulses are intact. - Labs CBC & Chem 7: 10/04/20 06:27 10/05/20 07:36 Labs: Microbiology - Last 24 Hours (Table) 10/06/20 18:00 Gram Stain - Preliminary Pleural Fluid Body Fluid Culture - Preliminary Assessment and Plan Plan: 1 Acute hypoxemic respiratory failure secondary to an acute exacerbation of chronic diastolic heart disease, along with a component of fluid overload and bilateral pleural effusions currently on 4L of oxygen by nasal cannula. The patient's oxygenation has been improving and the CAT scan of the chest was done and it showed bilateral pleural effusions and consolidations and atelectatic changes probably due to fluid overload and the patient is improving with dialysis and ultrafiltration. Room air oxygen. The patient underwent thoracentesis yesterday and the patient had a total of 700 mL of fluid removed from the left lung and the fluid is transudate. Along with dialysis, the oxygenation is normalized. 2 Valvular heart disease secondary pulmonary hypertension based on echocardiogram from 2019. Repeat echo cardiac exam showing severe pulmonary hypertension with a PA pressure of 78. LV is within normal limits. 3 Chronic kidney disease with worsening renal function. Unable to quantify his urine output because of incontinence and the patient is going to undergo hemodialysis today 4 History of hypertension 5 Gout 6 Chronic anemia 7 Lifelong nonsmoker 8 Chronic pulmonary hypertension, likely secondary, may benefit from a right- sided cardiac catheter later stage to investigate his pulmonary hypertension. Plan: Patient currently on room air oxygen hemodialysis per nephrology Continue bronchodilators Continue diuretics, Lasix 60 mg by mouth twice a day We'll see as needed
[2020-10-07] MEDS: TAMSULOSIN 0.4 MG CAP.ER.24H PO SCH (12:12)
[2020-10-07] MEDS: CALCIUM CARB-VIT D 500 MG-5 MCG TAB PO SCH ×2 (12:12→15:24)
[2020-10-07] MEDS: allopurinoL 300 MG TAB PO SCH (12:12)
--- NOTE | 2020-10-07 13:32 | PN ---
PROGRESS NOTE Patient is seen for followup for acute kidney injury. Currently maintained on dialysis. The patient had his dialysis treatment yesterday. We had about 1.3 L of fluid taken off. He is currently comfortable awake. He is without any oxygen. PHYSICAL EXAMINATION: Blood pressure 158/81, heart rate 72 per minute. He is afebrile. Examination of the heart S1, S2. Examination of lungs decreased breath sounds at bases. Abdomen is soft, nontender. Examination lower extremities shows trace edema bilaterally. LAB: Show sodium 137 from October 05, BUN 45, creatinine 2.39. Hemoglobin was 8.6 g/dL. ASSESSMENT: 1. Chronic kidney disease with progressive renal failure and volume overload started on dialysis this admission. 2. Chronic kidney disease, stage 4. Baseline creatinine around 3. 3. Acute on chronic diastolic congestive heart failure with moderate mitral regurgitation, moderate tricuspid regurg and pulmonary hypertension. 4. Volume overload, currently improved. 5. Hyperkalemia associated with acute kidney injury. 6. Anemia of chronic disease, status post IV iron maintained on Aranesp. PLAN: Next hemodialysis on Friday. Patient has an outpatient chair time. He will be starting at [facility]. MMGABRIELLA / LISSETT: [id number] /
--- NOTE | 2020-10-07 14:02 | P.PN ---
Subjective Progress Note Date: 10/07/20 This is a pleasant 84-year-old male past medical history significant for peripheral vascular disease, chronic kidney disease, valvular heart disease, pulmonary hypertension and hypertension. He follows in the office with Dr. Joya. He is currently admitted for congestive heart failure. Echocardiogram revealed low normal EF at 50-55% with mild LVH, mild MR, mild TR, and moderate to severe pulmonary hypertension with RVSP at 75 mmHg. The patient was interviewed and examined lying comfortably in bed by Dr. Rebolledo. He states he is feeling well and has been ambulating up into the bathroom. He denies any chest pain or chest pressure. His breathing is significantly improved since his thoracentesis yesterday. GENERAL: Well-appearing, well-nourished and in no acute distress. NECK: Supple without JVD or thyromegaly. LUNGS: Breath sounds diminished to auscultation bilaterally. Respiration equal and unlabored. No wheezes, rales or rhonchi. HEART: Regular rate and rhythm without murmurs, rubs or gallops. S1 and S2 heard. EXTREMITIES: Normal range of motion, no edema. No clubbing or cyanosis. VITALS: Blood pressure 158/81, pulse rate 72, respiratory rate 18, temp 97.6F, 93% on room air TELEMETRY: Sinus rhythm. No arrhythmia or ectopy noted. IMPRESSION: Acute on chronic diastolic heart failure Acute on chronic kidney disease, on hemodialysis Large pleural effusion, status post thoracentesis, 750 mL fluid removal Pulmonary hypertension, secondary to pleural effusion Hypertension, uncontrolled Valvular heart disease PLAN: Continue current medication regimen Continue aggressive pulmonary hygiene The patient has been seen and evaluated. Plan of care has been reviewed and agreed upon by Dr Rebolledo. Objective - Vital Signs Vital signs: Vital Signs Temp 97.6 F 10/07/20 12:13 Pulse 72 10/07/20 12:13 Resp 18 10/07/20 13:36 BP 158/81 10/07/20 12:13 Pulse Ox 93 L 10/07/20 12:13 Intake & Output 10/06/20 10/07/20 10/07/20 18:59 06:59 18:59 Intake Total 540 500 398 Output Total 1150 1500 250 Balance -610 -1000 148 Weight 68 kg Intake: IV 20 Invasive Line 1 20 Oral 540 200 378 Hemodialysis 300 Output: Urine 400 200 250 Hemodialysis 1300 Other 750 Other: Voiding Method Urinal Urinal Urinal Diaper Diaper Diaper # Voids 1 # Bowel Movements 1 - Labs CBC & Chem 7: 10/04/20 06:27 10/05/20 07:36 Labs: Microbiology - Last 24 Hours (Table) 10/06/20 18:00 Gram Stain - Preliminary Pleural Fluid Body Fluid Culture - Preliminary
[2020-10-07] MEDS ORDERED: ACETAMINOPHEN TAB 325 MG TAB PO PRN (20:43)
[2020-10-08] MEDS: ASPIRIN 81 MG PO SCH (08:56)
[2020-10-08] MEDS: HEPARIN SODIUM,PORCINE/PF 5,000 UNIT/0.5 ML SYRINGE SQ SCH ×2 (08:56→19:49)
[2020-10-08] MEDS: TAMSULOSIN 0.4 MG CAP.ER.24H PO SCH (08:57)
[2020-10-08] MEDS: FUROSEMIDE 20 MG TAB PO SCH ×2 (08:57→16:13)
[2020-10-08] MEDS: allopurinoL 300 MG TAB PO SCH (08:57)
[2020-10-08] MEDS: hydrALAZINE HCL 50 MG TAB PO SCH ×3 (08:57→19:49)
[2020-10-08] MEDS: ANAGRELIDE 1 MG PO SCH ×3 (08:58→19:49)
[2020-10-08] MEDS: CALCIUM CARB-VIT D 500 MG-5 MCG TAB PO SCH ×2 (08:58→16:14)
--- NOTE | 2020-10-08 12:40 | PN ---
PROGRESS NOTE The patient is seen for followup for chronic kidney disease with worsening renal function, started on hemodialysis this admission mostly for volume overload and progressive renal failure. The patient is currently being dialyzed on a Friday, Friday, Friday schedule. He states he is feeling okay. Denies any significant complaints. Still quite weak. Trying to increase his oral intake. PHYSICAL EXAMINATION: Blood pressure this morning 159/72, heart rate 85 per minute, he is afebrile. Examination of the heart S1, S2. Examination of the lungs, bilateral breath sounds are heard. Abdomen is soft, nontender. Examination of lower extremities shows chronic skin changes. No significant edema noted. S[employer]RATOR exam grossly intact. LABS: Not available from today. ASSESSMENT: 1. Volume overload, currently improved. 2. Chronic kidney disease, stage 4. Baseline creatinine about 3 prior to starting dialysis. 3. Acute on chronic diastolic congestive heart failure with moderate mitral regurg, tricuspid regurg and pulmonary hypertension. 4. Anemia of chronic disease with iron deficiency status post IV iron. 5. Hyperkalemia, currently improved. PLAN: Check labs tomorrow and hemodialysis in a.m. MMODL / IJN: [id number] /
--- NOTE | 2020-10-08 13:07 | P.PN ---
Subjective Progress Note Date: 10/08/20 This is a pleasant 84-year-old male past medical history significant for peripheral vascular disease, chronic kidney disease, valvular heart disease, pulmonary hypertension and hypertension. He follows in the office with Dr. Joya. He is currently admitted for congestive heart failure. Echocardiogram revealed low normal EF at 50-55% with mild LVH, mild MR, mild TR, and moderate to severe pulmonary hypertension with RVSP at 75 mmHg. The patient was interviewed and examined sitting in the recliner chair. He states he is feeling well and has been ambulating up into the bathroom. He denies any chest pain or chest pressure. His breathing has significantly improved. His only complaint is hip pain. GENERAL: Well-appearing, well-nourished and in no acute distress. NECK: Supple without JVD or thyromegaly. LUNGS: Breath sounds diminished to auscultation bilaterally. Respiration equal and unlabored. No wheezes, rales or rhonchi. HEART: Regular rate and rhythm without murmurs, rubs or gallops. S1 and S2 heard. EXTREMITIES: Normal range of motion, no edema. No clubbing or cyanosis. VITALS: Blood pressure 159/72, pulse rate 85, respiratory rate 18, temp 97.5F, 93% on room air TELEMETRY: Sinus rhythm. No arrhythmia or ectopy noted. IMPRESSION: Acute on chronic diastolic heart failure Acute on chronic kidney disease, on hemodialysis Large pleural effusion, status post thoracentesis, 750 mL fluid removal Pulmonary hypertension, secondary to pleural effusion Hypertension, uncontrolled Valvular heart disease PLAN: Continue current medication regimen Continue aggressive pulmonary hygiene No additional recommendations from the cardiac standpoint. We'll continue to follow on an as-needed basis only. The patient has been seen and evaluated. Plan of care has been reviewed and agreed upon by Dr Rebolledo. Objective - Vital Signs Vital signs: Vital Signs Temp 97.6 F 10/08/20 08:56 Pulse 85 10/08/20 08:56 Resp 18 10/08/20 08:56 BP 159/72 10/08/20 08:56 Pulse Ox 93 L 10/08/20 08:56 Intake & Output 10/07/20 10/08/20 10/08/20 18:59 06:59 18:59 Intake Total 658 100 300 Output Total 350 100 200 Balance 308 0 100 Weight 70.1 kg Intake: IV 20 Invasive Line 1 20 Oral 638 100 300 Output: Urine 350 100 200 Other: Voiding Method Urinal Urinal Urinal Diaper Diaper Diaper - Labs CBC & Chem 7: 10/04/20 06:27 10/05/20 07:36 Labs: Microbiology - Last 24 Hours (Table) 10/06/20 18:00 Gram Stain - Preliminary Pleural Fluid Body Fluid Culture - Preliminary
--- NOTE | 2020-10-08 19:39 | P.PN ---
Subjective Progress Note Date: 10/07/20 Principal diagnosis: Acute exacerbation diastolic CHF Valvular heart disease End-stage renal disease/hemodialysis 10/06/2020, the patient is seen and evaluated resting comfortably on a chair; discussed with nursing staff . Waiting for hemodialysis He is on 5 L of oxygen by nasal cannula. He has not undergone his hemodialysis yet. Ultrasound of the chest was done by pulmonary service and confirmed bilateral pleural effusion and these are smaller pockets and a left-sided pleural effusion was marked. Urine output is has approximately 10 mL an hour of urine output. No chest pain. No trouble breathing. No cough or sputum production. No signs of any respiratory decompensation. Nephrology on board and recommending hemodialysis with a Friday schedule as outpatient Increase hydralazine 200 mg 3 times daily; Maintain oral Lasix 10/07/2020 Patient is seen and evaluated sitting up in bedside chair; inquires about discharge plan everyday; discussed with nursing staff; heart rate dipped down into 30s last night; patient is discussed with cardiology and recommending to decrease Corgard and continue to monitor on telemetry for another 24 hours Patient is post thoracentesis. He also underwent hemodialysis yesterday. His oxygenation is improved and the patient is currently on 2 L with a pulse ox of 95%. A left-sided thoracentesis was done. The fluid is a transudate. The follow-up chest x-ray shows improvement in left-sided pleural effusion. There is some residual pleural effusion on the right. The patient is currently on diuretics. He is producing urine output. No complaints. We were even able to to wean him down to room air oxygen. Objective - Vital Signs Vital signs: Vital Signs Temp 98.6 F 10/07/20 07:45 Pulse 69 10/07/20 07:45 Resp 18 10/07/20 07:45 BP 177/81 10/07/20 07:45 Pulse Ox 93 L 10/07/20 07:45 Intake & Output 10/06/20 10/07/20 10/07/20 18:59 06:59 18:59 Intake Total 540 500 118 Output Total 1150 1500 200 Balance -610 -1000 -82 Weight 68 kg Intake: Oral 540 200 118 Hemodialysis 300 Output: Urine 400 200 200 Hemodialysis 1300 Other 750 Other: Voiding Method Urinal Urinal Urinal Diaper Diaper Diaper # Voids 1 # Bowel Movements 1 - Exam General: The patient appeared well nourished and normally developed. HEENT: Head exam is unremarkable. On nasal cannula. LUNGS: Breath sounds decreased. HEART: Rate and Rhythm are regular. ABDOMEN: Soft, no distention. EXTREMITITES: Trace edema. - Labs CBC & Chem 7: 10/04/20 06:27 10/05/20 07:36 Labs: Microbiology - Last 24 Hours (Table) 10/06/20 18:00 Gram Stain - Preliminary Pleural Fluid Body Fluid Culture - Preliminary Assessment and Plan Assessment: -Acute hypoxic respiratory failure: Secondary to congestive heart failure exacerbation patient probably has chronic diastolic dysfunction with acute exacerbation. Patient is presently on hemodialysis patient does have a cardiorenal syndrome. 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
--- NOTE | 2020-10-08 19:43 | P.PN ---
Subjective Progress Note Date: 10/08/20 Principal diagnosis: Acute exacerbation diastolic CHF Valvular heart disease End-stage renal disease/hemodialysis 10/06/2020, the patient is seen and evaluated resting comfortably on a chair; discussed with nursing staff . Waiting for hemodialysis He is on 5 L of oxygen by nasal cannula. He has not undergone his hemodialysis yet. Ultrasound of the chest was done by pulmonary service and confirmed bilateral pleural effusion and these are smaller pockets and a left-sided pleural effusion was marked. Urine output is has approximately 10 mL an hour of urine output. No chest pain. No trouble breathing. No cough or sputum production. No signs of any respiratory decompensation. Nephrology on board and recommending hemodialysis with a Friday schedule as outpatient Increase hydralazine 200 mg 3 times daily; Maintain oral Lasix 10/07/2020 Patient is seen and evaluated sitting up in bedside chair; inquires about discharge plan everyday; discussed with nursing staff; heart rate dipped down into 30s last night; patient is discussed with cardiology and recommending to decrease Corgard and continue to monitor on telemetry for another 24 hours Patient is post thoracentesis. He also underwent hemodialysis yesterday. His oxygenation is improved and the patient is currently on 2 L with a pulse ox of 95%. A left-sided thoracentesis was done. The fluid is a transudate. The follow-up chest x-ray shows improvement in left-sided pleural effusion. There is some residual pleural effusion on the right. The patient is currently on diuretics. He is producing urine output. No complaints. We were even able to to wean him down to room air oxygen. 10/08/2020 Patient is sitting up in the bedside chair; does report marked improvement in breathing; denies any chest pain or shortness of breath Vital signs are reviewed and are stable with a temperature of 97.0, pulse 60, respirations 16 and blood pressure 154/68; no further episodes of bradycardia telemetry monitored Patient has been evaluated by cardiology and recommended to continue with current medication regimen and continue with aggressive pulmonary hygiene; no further recommendations from cardiac standpoint and patient is cleared for discharge in stable; patient is undergoing hemodialysis for stage IV kidney disease; nephrology is following and recommending repeat hemodialysis tomorrow morning with follow-up labs; patient can be discharged home tomorrow after dialysis if cleared by nephrology and once outpatient hemodialysis is set up Objective - Vital Signs Vital signs: Vital Signs Temp 97.0 F L 10/08/20 11:50 Pulse 60 10/08/20 11:50 Resp 16 10/08/20 11:50 BP 154/68 10/08/20 11:50 Pulse Ox 94 L 10/08/20 11:50 Intake & Output 10/07/20 10/08/20 10/08/20 18:59 06:59 18:59 Intake Total 658 100 418 Output Total 350 100 200 Balance 308 0 218 Weight 70.1 kg Intake: IV 20 Invasive Line 1 20 Oral 638 100 418 Output: Urine 350 100 200 Other: Voiding Method Urinal Urinal Urinal Diaper Diaper Diaper - Exam General: The patient appeared well nourished and normally developed. HEENT: Head exam is unremarkable. On nasal cannula. LUNGS: Breath sounds decreased. HEART: Rate and Rhythm are regular. ABDOMEN: Soft, no distention. EXTREMITITES: Trace edema. - Labs CBC & Chem 7: 10/04/20 06:27 10/05/20 07:36 Labs: Microbiology - Last 24 Hours (Table) 10/06/20 18:00 Gram Stain - Preliminary Pleural Fluid Body Fluid Culture - Preliminary Assessment and Plan Assessment: -Acute hypoxic respiratory failure: Secondary to congestive heart failure exacerbation patient probably has chronic diastolic dysfunction with acute exacerbation. Patient is presently on hemodialysis patient does have a cardiorenal syndrome. 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
[2020-10-09 08:25] LABS: Calcium 9.1 mg/dL (8.4-10.2); Potassium 4.7 mmol/L (3.5-5.1)
[2020-10-09] MEDS: HEPARIN SODIUM,PORCINE/PF 5,000 UNIT/0.5 ML SYRINGE SQ SCH (08:38)
[2020-10-09 09:27] VITALS: RESP 18
[2020-10-09] MEDS: FUROSEMIDE 20 MG TAB PO SCH ×2 (11:39→16:12)
[2020-10-09] MEDS: hydrALAZINE HCL 50 MG TAB PO SCH ×2 (11:39→16:12)
[2020-10-09] MEDS: ASPIRIN 81 MG PO SCH (11:40)
[2020-10-09] MEDS: ANAGRELIDE 1 MG PO SCH ×2 (11:40→16:11)
[2020-10-09 11:48] VITALS: TEMP 96.5
--- NOTE | 2020-10-09 12:55 | PN ---
PROGRESS NOTE The patient is seen for followup for end-stage renal disease. He was started on dialysis this admission secondary to progressive renal failure and congestive heart failure exacerbation. The patient is currently seen on dialysis. He is tolerating his treatment fairly well. PHYSICAL EXAMINATION: On examination today, blood pressure was 160/80, heart rate 68 per minute, he is afebrile. Examination of the heart S1, S2. Examination of the lungs, bilateral breath sounds are heard. Abdomen is soft, nontender. Examination of lower extremities shows no evidence of edema. 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 LAB: Show sodium 138, potassium 4.7, BUN 81, creatinine 3.4, hemoglobin 8.6 g/dL on October 04. ASSESSMENT: 1. Chronic kidney disease with progressive renal failure and volume overload, started on dialysis this admission. 2. Congestive heart failure, acute on chronic, mostly diastolic with moderate mitral regurgitation and pulmonary hypertension. The patient also has tricuspid regurgitation. 3. Anemia of chronic disease and iron deficiency, status post IV iron, maintained on Aranesp. 4. Hyperkalemia, currently resolved. 5. Chronic kidney disease, stage 4, previous creatinine around 3 prior to starting dialysis this admission. PLAN: Arrange for outpatient dialysis and chair time. The patient will be going to [facility] on a Friday, Friday, Friday schedule. MMODL / IJN: [id number] /
[2020-10-09] MEDS: allopurinoL 300 MG TAB PO SCH (13:35)
[2020-10-09] MEDS: CALCIUM CARB-VIT D 500 MG-5 MCG TAB PO SCH (13:35)
[2020-10-09] MEDS: TAMSULOSIN 0.4 MG CAP.ER.24H PO SCH (13:35)
[2020-10-09] MEDS: DARBEPOETIN ALFA 40 MCG/0.4 ML SYRINGE SQ SCH (14:39)
--- NOTE | 2020-10-09 15:28 | P.DS ---
Providers Date of admission: 09/25/20 13:35 Attending physician: Junior Rand Consults: 09/25/20 13:21 Consult Physician Routine Consulting Provider: [facility] Consult Reason/Comments: CHF exacerbation Do you want consulting provider notified?: Yes 09/27/20 10:44 Consult Physician Stat Consulting Provider: Valdemar Read Consult Reason/Comments: difficulty breathing Do you want consulting provider notified?: Yes 09/27/20 10:45 Consult Physician Stat Consulting Provider: Marci Harris Consult Reason/Comments: CHF elevated BUN & creat Do you want consulting provider notified?: Yes 09/29/20 10:54 Consult Physician Urgent Consulting Provider: Dg Malone Consult Reason/Comments: hemodialysis access for tommorrow AM dialysis Do you want consulting provider notified?: Yes 10/03/20 11:40 Consult Physician Routine Consulting Provider: Dg Malone Consult Reason/Comments: Permanent HD catheter placement Do you want consulting provider notified?: Yes Primary care physician: Halie Ruffin [facility] Course: Acute exacerbation diastolic CHF Valvular heart disease End-stage renal disease/hemodialysis 10/06/2020, the patient is seen and evaluated resting comfortably on a chair; discussed with nursing staff . Waiting for hemodialysis He is on 5 L of oxygen by nasal cannula. He has not undergone his hemodialysis yet. Ultrasound of the chest was done by pulmonary service and confirmed bilateral pleural effusion and these are smaller pockets and a left-sided pleural effusion was marked. Urine output is has approximately 10 mL an hour of urine output. No chest pain. No trouble breathing. No cough or sputum production. No signs of any respiratory decompensation. Nephrology on board and recommending hemodialysis with a Friday schedule as outpatient Increase hydralazine 200 mg 3 times daily; Maintain oral Lasix 10/07/2020 Patient is seen and evaluated sitting up in bedside chair; inquires about discharge plan everyday; discussed with nursing staff; heart rate dipped down into 30s last night; patient is discussed with cardiology and recommending to decrease Corgard and continue to monitor on telemetry for another 24 hours Patient is post thoracentesis. He also underwent hemodialysis yesterday. His oxygenation is improved and the patient is currently on 2 L with a pulse ox of 95%. A left-sided thoracentesis was done. The fluid is a transudate. The follow-up chest x-ray shows improvement in left-sided pleural effusion. There is some residual pleural effusion on the right. The patient is currently on diuretics. He is producing urine output. No complaints. We were even able to to wean him down to room air oxygen. 10/08/2020 Patient is sitting up in the bedside chair; does report marked improvement in breathing; denies any chest pain or shortness of breath Vital signs are reviewed and are stable with a temperature of 97.0, pulse 60, respirations 16 and blood pressure 154/68; no further episodes of bradycardia telemetry monitored Patient has been evaluated by cardiology and recommended to continue with current medication regimen and continue with aggressive pulmonary hygiene; no further recommendations from cardiac standpoint and patient is cleared for discharge in stable; patient is undergoing hemodialysis for stage IV kidney disease; nephrology is following and recommending repeat hemodialysis tomorrow morning with follow-up labs; patient can be discharged home tomorrow after dialysis if cleared by nephrology and once outpatient hemodialysis is set up 10/09/2020 patient is not requiring oxygen today patient is clinically doing well patient was started on hemodialysis during this hospital physician patient has cardiorenal syndrome. Patient isn't requirements went up to as high as 15 L during this hospitalization. Patient still makes urine. PHYSICAL EXAMINATION: GENERAL: The patient is alert and oriented x3, not in any acute distress. Well developed, well nourished. HEENT: Pupils are round and equally reacting to light. EOMI. No scleral icterus. No conjunctival pallor. Normocephalic, atraumatic. No pharyngeal erythema. No thyromegaly. CARDIOVASCULAR: S1 and S2 present. No murmurs, rubs, or gallops. PULMONARY: Chest is clear to auscultation, no wheezing or crackles. ABDOMEN: Soft, nontender, nondistended, normoactive bowel sounds. No palpable organomegaly. MUSCULOSKELETAL: No joint swelling or deformity. EXTREMITIES: No cyanosis, clubbing, or pedal edema. NEUROLOGICAL: Gross neurological examination did not reveal any focal deficits. SKIN: No rashes. Assessment and Plan Assessment: -Acute hypoxic respiratory failure: Secondary to congestive heart failure exacerbation patient probably has chronic diastolic dysfunction with acute exacerbation. Patient is presently on hemodialysis patient does have a cardiorenal syndrome. 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 for which patient is on sodium bicarbonate which will be continued -Anemia of chronic kidney disease -Hypertension -Benign prostatic hypertrophy Plan - Discharge Summary Discharge Rx Participant: No New Discharge Prescriptions: New hydrALAZINE HCL [Apresoline] 100 mg PO TID #90 tab Furosemide [Lasix] 60 mg PO BID@0900,1600 #60 tab Continue Tamsulosin HCl [Flomax] 0.8 mg PO DAILY@1200 Sodium Bicarbonate Tab 1,300 mg PO TID Aspirin 81 mg PO DAILY allopurinoL [Zyloprim] 150 mg PO PC-LUNCH Agrylin 1mg 1 mg PO BID Calcium Carbonate [Calcium] 600 mg PO BID@1200,1700 Nadolol [Corgard] 20 mg PO HS NIFEdipine XL [Procardia XL] 60 mg PO BID Epoetin Abraham-Epbx [Retacrit] 20,000 unit IJ WE Ergocalciferol [Vitamin D2 (1250 Mcg = 69056 Iu)] 1,250 mcg PO WE Nadolol [Corgard] 40 mg PO DAILY Discontinued Furosemide [Lasix] 40 mg PO BID@0800,1200 Discharge Medication List Sodium Bicarbonate Tab 1,300 mg PO TID 05/24/14 [History] Tamsulosin HCl [Flomax] 0.8 mg PO DAILY@1200 05/24/14 [History] Aspirin 81 mg PO DAILY 02/05/17 [History] allopurinoL [Zyloprim] 150 mg PO PC-LUNCH 02/05/17 [History] Agrylin 1mg 1 mg PO BID 09/25/20 [History] Calcium Carbonate [Calcium] 600 mg PO BID@1200,1700 09/25/20 [History] Epoetin Abraham-Epbx [Retacrit] 20,000 unit IJ WE 09/25/20 [History] Ergocalciferol [Vitamin D2 (1250 Mcg = 06658 Iu)] 1,250 mcg PO WE 09/25/20 [History] NIFEdipine XL [Procardia XL] 60 mg PO BID 09/25/20 [History] Nadolol [Corgard] 20 mg PO HS 09/25/20 [History] Nadolol [Corgard] 40 mg PO DAILY 09/25/20 [History] Furosemide [Lasix] 60 mg PO BID@0900,1600 #60 tab 10/09/20 [Rx] hydrALAZINE HCL [Apresoline] 100 mg PO TID #90 tab 10/09/20 [Rx] Follow up Appointment(s)/Referral(s): [facility] - 10/09/20 2:00 pm (Your dialysis days will be Friday's,Friday's,Friday's at 2:30PM. On your 1st day they would like you to arrive at 2:00PM to complete paperwork.) Halie Ruffin MD [Primary Care Provider] - 1-2 days
[2020-10-09 15:32] VITALS: BP 153/67; PULSE 54
== END 2020-10-09 16:30 | disposition home health service (06) | DRG 291 ==
LOC: EC 11:14 → 3SCARD 13:35
PROVIDERS: ADMIT Internal Medicine; ATTEND Internal Medicine
PROC: 5A1D70Z Performance of Urinary Filtration, Intermittent, Less than 6 Hours Per Day (ICD-10-PCS; 2020-09-29 14:15)
PROC: 06HM33Z Insertion of Infusion Device into Right Femoral Vein, Percutaneous Approach (ICD-10-PCS; 2020-09-29 14:15)
PROC: 5A0945A Assistance with Respiratory Ventilation, 24-96 Consecutive Hours, High Flow/Velocity Cannula (ICD-10-PCS; 2020-10-04)
PROC: 02HV33Z Insertion of Infusion Device into Superior Vena Cava, Percutaneous Approach (ICD-10-PCS; 2020-10-04 08:30)
PROC: 06PY3YZ Removal of Other Device from Lower Vein, Percutaneous Approach (ICD-10-PCS; 2020-10-04 08:30)
PROC: 0W9B3ZZ Drainage of Left Pleural Cavity, Percutaneous Approach (ICD-10-PCS; principal; 2020-10-06)
DX: I13.2 Hypertensive heart and chronic kidney disease with heart failure and with stage 5 chronic kidney disease, or end stage renal disease (principal); I50.33 Acute on chronic diastolic (congestive) heart failure; J96.01 Acute respiratory failure with hypoxia; N17.0 Acute kidney failure with tubular necrosis; N18.6 End stage renal disease; I31.3 Pericardial effusion (noninflammatory); I45.2 Bifascicular block; J91.8 Pleural effusion in other conditions classified elsewhere; J98.11 Atelectasis; I08.3 Combined rheumatic disorders of mitral, aortic and tricuspid valves; I27.20 Pulmonary hypertension, unspecified; I44.0 Atrioventricular block, first degree; I49.3 Ventricular premature depolarization; M10.9 Gout, unspecified; E83.9 Disorder of mineral metabolism, unspecified; Z20.822 Contact with and (suspected) exposure to COVID-19; D50.9 Iron deficiency anemia, unspecified; D63.1 Anemia in chronic kidney disease; E87.5 Hyperkalemia; I73.9 Peripheral vascular disease, unspecified; R32 Unspecified urinary incontinence; N40.0 Benign prostatic hyperplasia without lower urinary tract symptoms; Z79.82 Long term (current) use of aspirin; Z79.899 Other long term (current) drug therapy; Z80.51 Family history of malignant neoplasm of kidney; Z82.49 Family history of ischemic heart disease and other diseases of the circulatory system; Z99.2 Dependence on renal dialysis
CPT/HCPCS: 36415; 36556; 36558; 71045; 71046; 71250; 76604; 76937; 77001; 80048; 80053; 82945; 83540; 83550; 83615; 83735; 83880; 84100; 84145; 84157; 84484; 85025; 85027; 85610; 85730; 86704; 86706; 87070; 87205; 87340; 87635; 90935; 93005; 93306; 94640; 94760; 99285

== ENCOUNTER 2020-11-08 12:55 | Observation (INO) | payer MEDICARE ==
[2020-11-08 13:39] LABS: Anisocytosis Slight; Basophils # (A) 0.1 k/uL (0-0.2); Basophils % (A) 2 %; Eosinophils # (A) 0.2 k/uL (0-0.7); Eosinophils % (A) 2 %; HCT 32.2 % (39.0-53.0); HGB 10.6 gm/dL (13.0-17.5); Lymphocytes # (A) 0.7 k/uL (1.0-4.8); Lymphocytes % (A) 9 %; MCH 29.6 pg (25.0-35.0); MCHC 32.9 g/dL (31.0-37.0); MCV 90.1 fL (80.0-100.0); Mean Platelet Volume 9.1; Monocytes # (A) 0.5 k/uL (0-1.0); Monocytes % (A) 7 %; Neutrophils # (A) 5.7 k/uL (1.3-7.7); Neutrophils % (A) 77 %; Platelet Count 395 k/uL (150-450); RBC 3.58 m/uL (4.30-5.90); RDW 17.6 % (11.5-15.5); WBC 7.4 k/uL (3.8-10.6)
--- NOTE | 2020-11-08 13:40 | ED ---
General Adult HPI - General Chief complaint: Arrhythmia/Palpitations Stated complaint: Blood pressure issues Time Seen by Provider: 11/08/20 13:07 Source: patient, RN notes reviewed Mode of arrival: wheelchair Limitations: no limitations - History of Present Illness Initial comments: Patient is a pleasant 85-year-old male presenting to the emergency department with concern regarding his heart rate. Patient has been having increasing heart rate over the past several days. Heart rate this morning was 120 on his monitor. Patient does have palpitations at times. Patient has been having increased fatigue and near syncopal episodes since starting dialysis a month ago. Patient has fallen a couple times and come very close to passing out however never fully passed out. No chest pain or dyspnea. No headache or weakness or confusion. - Related Data Home Medications Medication Instructions Recorded Confirmed Sodium Bicarbonate Tab 1,300 mg PO TID 05/24/14 09/25/20 Tamsulosin HCl [Flomax] 0.8 mg PO DAILY@1200 05/24/14 09/25/20 Aspirin 81 mg PO DAILY 02/05/17 09/25/20 allopurinoL [Zyloprim] 150 mg PO PC-LUNCH 02/05/17 09/25/20 Agrylin 1mg 1 mg PO BID 09/25/20 09/25/20 Calcium Carbonate [Calcium] 600 mg PO BID@1200,1700 09/25/20 09/25/20 Epoetin Abraham-Epbx [Retacrit] 20,000 unit IJ WE 09/25/20 09/25/20 Ergocalciferol [Vitamin D2 (1250 1,250 mcg PO WE 09/25/20 09/25/20 Mcg = 44666 Iu)] NIFEdipine XL [Procardia XL] 60 mg PO BID 09/25/20 09/25/20 Nadolol [Corgard] 20 mg PO HS 09/25/20 09/25/20 Nadolol [Corgard] 40 mg PO DAILY 09/25/20 09/25/20 Previous Rx's Medication Instructions Recorded Furosemide [Lasix] 60 mg PO BID@0900,1600 #60 tab 10/09/20 hydrALAZINE HCL [Apresoline] 100 mg PO TID #90 tab 10/09/20 Allergies Allergy/AdvReac Type Severity Reaction Status Date / Time Iodinated Contrast Media AdvReac KIDNEY Verified 11/08/20 13:05 [Iodinated Contrast- Oral FAILURE and IV Dye] Review of Systems ROS Statement: Those systems with pertinent positive or pertinent negative responses have been documented in the HPI. ROS Other: All systems not noted in ROS Statement are negative. Constitutional: Denies: fever Eyes: Denies: eye pain ENT: Denies: throat pain Respiratory: Denies: cough Cardiovascular: Reports: palpitations. Denies: chest pain Endocrine: Reports: fatigue Gastrointestinal: Denies: abdominal pain Genitourinary: Denies: dysuria Musculoskeletal: Denies: back pain Skin: Denies: rash Neurological: Denies: weakness Past Medical History Past Medical History: Heart Failure, Dialysis, Hypertension, Prostate Disorder, Renal Disease Additional Past Medical History / Comment(s): Thrombocytemia/elevated platelets, CKD stage IV, anemia, BPH, gout R great toe, History of Any Multi-Drug Resistant Organisms: None Reported Past Surgical History: Tonsillectomy Additional Past Surgical History / Comment(s): BMA with biopsy, R hand index finger injury/partial amp, colonoscopy. Past Anesthesia/Blood Transfusion Reactions: No Reported Reaction Past Psychological History: No Psychological Hx Reported Smoking Status: Never smoker Past Alcohol Use History: None Reported Past Drug Use History: None Reported - Past Family History Father Family Medical History: Cancer, Hypertension, Renal Disease Additional Family Medical History / Comment(s): Kidney Cancer Mother Family Medical History: No Reported History Additional Family Medical History / Comment(s): Mother was healthy General Exam Limitations: no limitations General appearance: alert, in no apparent distress Head exam: Present: normocephalic Eye exam: Present: normal appearance Respiratory exam: Present: normal lung sounds bilaterally Cardiovascular Exam: Present: regular rate, normal rhythm Expanded Peripheral pulses: 2+: Radial (R), Radial (L), Dorsalis Pedis (R), Dorsalis Pedis (L) GI/Abdominal exam: Present: soft. Absent: tenderness Extremities exam: Present: normal inspection Neurological exam: Present: alert Psychiatric exam: Present: normal affect, normal mood Skin exam: Present: normal color Course Vital Signs 11/08/20 11/08/20 13:03 14:05 Temperature 97.9 F Pulse Rate 71 65 Respiratory 16 16 Rate Blood Pressure 120/63 177/73 O2 Sat by Pulse 98 97 Oximetry EKG Findings - EKG Comments: EKG Findings:: Sinus rhythm with rate of 93. First-degree AV block IA 242. PVC present. QRS 150. QT 392. QTC 47. Left axis. Right bundle branch block. LVH criteria. No acute ST changes. Medical Decision Making - Medical Decision Making Patient reevaluated and resting complain bed. Patient and family updated on results and plan. Case was discussed with Dr. Rand who will admit covering for hospital call. Consults will place with cardiology and nephrology. - Lab Data Result diagrams: 11/08/20 13:11 11/08/20 13:11 Lab Results 11/08/20 11/08/20 11/08/20 Range/Units 13:11 13:11 13:11 WBC 7.4 (3.8-10.6) k/uL RBC 3.58 L (4.30-5.90) m/uL Hgb 10.6 L (13.0-17.5) gm/dL Hct 32.2 L (39.0-53.0) % MCV 90.1 (80.0-100.0) fL MCH 29.6 (25.0-35.0) pg MCHC 32.9 (31.0-37.0) g/dL RDW 17.6 H (11.5-15.5) % Plt Count 395 (150-450) k/uL MPV 9.1 Neutrophils % 77 % Lymphocytes % 9 % Monocytes % 7 % Eosinophils % 2 % Basophils % 2 % Neutrophils # 5.7 (1.3-7.7) k/uL Lymphocytes # 0.7 L (1.0-4.8) k/uL Monocytes # 0.5 (0-1.0) k/uL Eosinophils # 0.2 (0-0.7) k/uL Basophils # 0.1 (0-0.2) k/uL Anisocytosis Slight PT 9.5 (9.0-12.0) sec INR 0.9 (<1.2) APTT 24.2 (22.0-30.0) sec Sodium 137 (137-145) mmol/L Potassium 4.5 (3.5-5.1) mmol/L Chloride 98 (98-107) mmol/L Carbon Dioxide 30 (22-30) mmol/L Anion Gap 9 mmol/L BUN 82 H (9-20) mg/dL Creatinine 3.49 H (0.66-1.25) mg/dL Est GFR (CKD-EPI)AfAm 18 (>60 ml/min/1.73 sqM) Est GFR (CKD-EPI)NonAf 15 (>60 ml/min/1.73 sqM) Glucose 107 H (74-99) mg/dL Calcium 10.1 (8.4-10.2) mg/dL Magnesium 2.3 (1.6-2.3) mg/dL Total Bilirubin 0.3 (0.2-1.3) mg/dL AST 17 (17-59) U/L ALT 8 (4-49) U/L Alkaline Phosphatase 50 (38-126) U/L Troponin I (0.000-0.034) ng/mL Total Protein 6.0 L (6.3-8.2) g/dL Albumin 3.7 (3.5-5.0) g/dL TSH 0.386 L (0.465-4.680) mIU/L Free T4 1.21 (0.78-2.19) ng/dL Free T3 pg/mL 3.6 (2.8-5.3) pg/ml 11/08/20 Range/Units 13:11 WBC (3.8-10.6) k/uL RBC (4.30-5.90) m/uL Hgb (13.0-17.5) gm/dL Hct (39.0-53.0) % MCV (80.0-100.0) fL MCH (25.0-35.0) pg MCHC (31.0-37.0) g/dL RDW (11.5-15.5) % Plt Count (150-450) k/uL MPV Neutrophils % % Lymphocytes % % Monocytes % % Eosinophils % % Basophils % % Neutrophils # (1.3-7.7) k/uL Lymphocytes # (1.0-4.8) k/uL Monocytes # (0-1.0) k/uL Eosinophils # (0-0.7) k/uL Basophils # (0-0.2) k/uL Anisocytosis PT (9.0-12.0) sec INR (<1.2) APTT (22.0-30.0) sec Sodium (137-145) mmol/L Potassium (3.5-5.1) mmol/L Chloride (98-107) mmol/L Carbon Dioxide (22-30) mmol/L Anion Gap mmol/L BUN (9-20) mg/dL Creatinine (0.66-1.25) mg/dL Est GFR (CKD-EPI)AfAm (>60 ml/min/1.73 sqM) Est GFR (CKD-EPI)NonAf (>60 ml/min/1.73 sqM) Glucose (74-99) mg/dL Calcium (8.4-10.2) mg/dL Magnesium (1.6-2.3) mg/dL Total Bilirubin (0.2-1.3) mg/dL AST (17-59) U/L ALT (4-49) U/L Alkaline Phosphatase (38-126) U/L Troponin I 0.038 H* (0.000-0.034) ng/mL Total Protein (6.3-8.2) g/dL Albumin (3.5-5.0) g/dL TSH (0.465-4.680) mIU/L Free T4 (0.78-2.19) ng/dL Free T3 pg/mL (2.8-5.3) pg/ml - Radiology Data Radiology results: image reviewed Disposition Clinical Impression: Near syncope Disposition: ADMITTED IP TO THIS [facility] Is patient prescribed a controlled substance at d/c from ED?: No Referrals: Halie Ruffin MD [Primary Care Provider] - 1-2 days Decision Time: 14:43
[2020-11-08 13:50] LABS: INR 0.9 (<1.2); Partial Thromboplastin Time 24.2 sec (22.0-30.0); Prothrombin Time 9.5 sec (9.0-12.0)
[2020-11-08 13:52] LABS: Albumin 3.7 g/dL (3.5-5.0); Calcium 10.1 mg/dL (8.4-10.2); Magnesium 2.3 mg/dL (1.6-2.3); Potassium 4.5 mmol/L (3.5-5.1); Total Bilirubin 0.3 mg/dL (0.2-1.3)
[2020-11-08 14:10] LABS: T4, Free (Free Thyroxine) 1.21 ng/dL (0.78-2.19)
[2020-11-08] MEDS ORDERED: NALOXONE 0.4 MG/ML 1 ML VIAL IV PRN (14:44)
--- NOTE | 2020-11-08 15:25 | XR ---
EXAMINATION TYPE: XR chest 2V DATE OF EXAM: 11/08/2020 COMPARISON: 10/06/2020 HISTORY: Dysrhythmia TECHNIQUE: Frontal and lateral views of the chest are obtained. FINDINGS: Large dual-lumen right central venous catheter with its tip at the SVC. Heart size is with in normal limits. Atherosclerotic aorta. No focal consolidation, pleural effusion or pneumothorax. Mi ld degenerative changes of the thoracic spine. IMPRESSION: 1. No acute pulmonary disease. 2. Large dual-lumen right central venous catheter with its tip at the SVC.
--- NOTE | 2020-11-08 18:02 | P.HPIM ---
History of Present Illness Patient is a pleasant 85-year-old the male came in with compensative palpitations. Patient heart rate up and went up to 120 today. Patient does have history of chronic diastolic dysfunction patient was started on hemodialysis during his last hospitalization because of a cardiorenal syndrome. Because of his palpitations and lightheadedness patient did not get his hemodialysis today came to the ER. Patient denied any shortness of breath fever chills nausea vomiting dysuria. Chest x-ray did not show any pulmonary edema. Patient has mildly elevated troponin secondary to chronic kidney disease, end- stage renal disease, EKG showing the sinus rhythm with right bundle-branch block bifascicular block and a possible first-degree AV block. REVIEW OF SYSTEMS: CONSTITUTIONAL: No fever, no malaise, no fatigue. HEENT: No recent visual problems or hearing problems. Denied any sore throat. CARDIOVASCULAR: No chest pain, orthopnea, PND, no syncope. PULMONARY: No shortness of breath, no cough, no hemoptysis. GASTROINTESTINAL: No diarrhea, no nausea, no vomiting, no abdominal pain. NEUROLOGICAL: No headaches, no weakness, no numbness. HEMATOLOGICAL: Denies any bleeding or petechiae. GENITOURINARY: Denies any burning micturition, frequency, or urgency. MUSCULOSKELETAL/RHEUMATOLOGICAL: Denies any joint pain, swelling, or any muscle pain. ENDOCRINE: Denies any polyuria or polydipsia. The rest of the 14-point review of systems is negative. PHYSICAL EXAMINATION: GENERAL: The patient is alert and oriented x3, not in any acute distress. Well developed, well nourished. HEENT: Pupils are round and equally reacting to light. EOMI. No scleral icterus. No conjunctival pallor. Normocephalic, atraumatic. No pharyngeal erythema. No thyromegaly. CARDIOVASCULAR: S1 and S2 present. No murmurs, rubs, or gallops. PULMONARY: Chest is clear to auscultation, no wheezing or crackles. ABDOMEN: Soft, nontender, nondistended, normoactive bowel sounds. No palpable organomegaly. MUSCULOSKELETAL: No joint swelling or deformity. EXTREMITIES: No cyanosis, clubbing, or pedal edema. NEUROLOGICAL: Gross neurological examination did not reveal any focal deficits. SKIN: No rashes. Assessment and plan -Complaints of palpitations and lightheadedness: Patient will be monitored on night monitor. Patient does have history of chronic diastolic dysfunction -Chronic diastolic dysfunction without any acute exacerbation -Cardiorenal syndrome, end-stage renal disease on hemodialysis, nephrology will be consulted patient will be started on dialysis most probably tomorrow patient is usually Friday hemodialysis patient appears to have missed his hemodialysis. Appears patient becomes hypotensive on the days of hemodialysis because of which patient is on midodrine on the days of hemodialysis. -Mildly elevated troponin secondary to renal dysfunction -Sick euthyroid syndrome with a low TSH and normal T4 TSH need to be repeated in about 3-4 weeks -Benign prostatic hypertrophy -Generalized weakness seconded to multiple medical problems, consult physical therapy and occupational therapy DVT prophylaxis: Subcutaneous heparin Past Medical History Past Medical History: Heart Failure, Dialysis, Hypertension, Prostate Disorder, Renal Disease Additional Past Medical History / Comment(s): Thrombocytemia/elevated platelets, CKD stage IV, anemia, BPH, gout R great toe, History of Any Multi-Drug Resistant Organisms: None Reported Past Surgical History: Tonsillectomy Additional Past Surgical History / Comment(s): BMA with biopsy, R hand index finger injury/partial amp, colonoscopy. Past Anesthesia/Blood Transfusion Reactions: No Reported Reaction Past Psychological History: No Psychological Hx Reported Smoking Status: Never smoker Past Alcohol Use History: None Reported Past Drug Use History: None Reported - Past Family History Father Family Medical History: Cancer, Hypertension, Renal Disease Additional Family Medical History / Comment(s): Kidney Cancer Mother Family Medical History: No Reported History Additional Family Medical History / Comment(s): Mother was healthy Medications and Allergies Home Medications Medication Instructions Recorded Confirmed Type Tamsulosin HCl [Flomax] 0.8 mg PO W/LUNCH 05/24/14 11/08/20 History Aspirin 81 mg PO DAILY 02/05/17 11/08/20 History allopurinoL [Zyloprim] 100 mg PO W/LUNCH 02/05/17 11/08/20 History Calcium Carbonate [Calcium] 600 mg PO BID@1200,1700 09/25/20 11/08/20 History Ergocalciferol [Vitamin D2 (1250 1,250 mcg PO Q30D 09/25/20 11/08/20 History Mcg = 77141 Iu)] Anagrelide HCl 1 mg PO BID 11/08/20 11/08/20 History Midodrine [ProAmatine] 5 mg PO MOWEFR 11/08/20 11/08/20 History Vit B Complx C/Folic Acid/Zinc 1 tab PO W/LUNCH 11/08/20 11/08/20 History [Renaplex Tablet] Allergies Allergy/AdvReac Type Severity Reaction Status Date / Time Iodinated Contrast Media AdvReac KIDNEY Verified 11/08/20 14:57 [Iodinated Contrast- Oral FAILURE and IV Dye] Physical Exam Vitals: Vital Signs Temp Pulse Resp BP Pulse Ox 11/08/20 15:01 65 18 185/87 98 11/08/20 14:05 65 16 177/73 97 11/08/20 13:03 97.9 F 71 16 120/63 98 Intake and Output 11/08/20 11/08/20 11/08/20 06:59 14:59 22:59 Other: Weight 58.967 kg Results CBC & Chem 7: 11/08/20 13:11 11/08/20 13:11 Labs: Abnormal Lab Results - Last 24 Hours (Table) 11/08/20 11/08/20 11/08/20 Range/Units 13:11 13:11 13:11 RBC 3.58 L (4.30-5.90) m/uL Hgb 10.6 L (13.0-17.5) gm/dL Hct 32.2 L (39.0-53.0) % RDW 17.6 H (11.5-15.5) % Lymphocytes # 0.7 L (1.0-4.8) k/uL BUN 82 H (9-20) mg/dL Creatinine 3.49 H (0.66-1.25) mg/dL Glucose 107 H (74-99) mg/dL Troponin I 0.038 H* (0.000-0.034) ng/mL Total Protein 6.0 L (6.3-8.2) g/dL TSH 0.386 L (0.465-4.680) mIU/L 11/08/20 Range/Units 15:16 RBC (4.30-5.90) m/uL Hgb (13.0-17.5) gm/dL Hct (39.0-53.0) % RDW (11.5-15.5) % Lymphocytes # (1.0-4.8) k/uL BUN (9-20) mg/dL Creatinine (0.66-1.25) mg/dL Glucose (74-99) mg/dL Troponin I 0.054 H* (0.000-0.034) ng/mL Total Protein (6.3-8.2) g/dL TSH (0.465-4.680) mIU/L
[2020-11-08] MEDS ORDERED: ANAGRELIDE HCL 1 MG PO SCH (21:00)
[2020-11-09] MEDS ORDERED: hydrALAZINE HCL 20 MG/ML 1 ML VIAL IVP STA (05:30)
[2020-11-09 07:29] LABS: Anisocytosis Slight; HCT 28.9 % (39.0-53.0); HGB 9.6 gm/dL (13.0-17.5); MCH 30.1 pg (25.0-35.0); MCHC 33.2 g/dL (31.0-37.0); MCV 90.8 fL (80.0-100.0); Mean Platelet Volume 9.3; Platelet Count 338 k/uL (150-450); RBC 3.19 m/uL (4.30-5.90); RDW 17.8 % (11.5-15.5); WBC 6.7 k/uL (3.8-10.6)
[2020-11-09 07:36] LABS: Calcium 10.2 mg/dL (8.4-10.2); Potassium 4.7 mmol/L (3.5-5.1)
[2020-11-09] MEDS ORDERED: ASPIRIN 81 MG PO SCH (09:00)
[2020-11-09 10:41] VITALS: BP 183/68; PULSE 71; RESP 18; TEMP 98
[2020-11-09] MEDS ORDERED: carvediloL 6.25 MG TAB PO SCH (11:15)
[2020-11-09] MEDS ORDERED: CALCIUM CARBONATE 500 MG CHEWABLE PO SCH (12:00)
--- NOTE | 2020-11-09 12:02 | P.CRDCN ---
History of Present Illness History of present illness: HISTORY OF PRESENTING ILLNESS This is a pleasant 85-year-old male past medical history significant for chronic kidney disease on HD, aortic and mitral regurgitation and chronic diastolic heart failure. He follows in the office with Dr. Carmichael. We have been asked to see in consultation for near syncope. He states since starting dialysis in September he has been struggling with frequent episodes of dizziness, hypotension and tachycardia. He states this seems to occur in the morning when he first wakes up and attempts to get out of bed. Typically it occurs on the day after he has dialysis treatment. Specifically yesterday morning he woke up and tried getting out of bed and noticed his heart rate was elevated. He checked and it was around 120. He denies ever actually passing out, he just feels like if he doesn't sit down he will fall. He denies chest pain or shortness of breath. DIAGNOSTICS EKG reveals sinus rhythm with first-degree AV block, frequent PVCs, right bundle branch block and left anterior fascicular block with LVH heart rate of 93. Telemetry tracings indicate this mechanism with no significant arrhythmia or pauses. Chest xray negative for an acute cardiopulmonary process. Laboratory reviewed, PVCs 6.7, hemoglobin 9.6, platelets 338, sodium 137, potassium 4.7, creatinine 3.52, magnesium 2.3, troponin 0.038, 0.054, 0.063 and TSH 0.386. Current cardiac medications include aspirin 81 mg daily and midodrine 5 mg on the morning of dialysis. Most recent echocardiogram obtained September 2020 revealed preserved LV systolic function with ejection fraction 55%, mild aortic regurgitation and moderate to severe mitral regurgitation. REVIEW OF SYSTEMS At the time of my exam: CONSTITUTIONAL: Denies fever or chills. CARDIOVASCULAR: Denies chest pain, shortness of breath, orthopnea, PND or palpitations. RESPIRATORY: Denies cough. GASTROINTESTINAL: Denies abdominal pain, diarrhea, constipation, nausea or vomiting. MUSCULOSKELETAL: Denies myalgias. NEUROLOGIC: Denies numbness, tingling, headacbe or weakness. ENDOCRINE: Denies fatigue, weight change, polydipsia or polyurina. GENITOURINARY: Denies burning, hematuria or urgency with micturation. HEMATOLOGIC: Denies history of anemia or bleeding. PHYSICAL EXAMINATION Blood pressure 183/68 heart rate 71 afebrile and maintaining oxygen saturation on room air. CONSTITUTIONAL: No apparent distress. HEENT: Head is normocephalic. Pupils are equal, round. Sclerae anicteric. Mucous membranes of the mouth are moist. No JVD. No carotid bruit. CHEST EXAMINATION: Lungs are clear to auscultation. No chest wall tenderness is noted on palpation or with deep breathing. HEART EXAMINATION: Regular rate and rhythm. S1, S2 heard. Systolic ejection murmur at the base, no gallops or rub. ABDOMEN: Soft, nontender. Positive bowel sounds. EXTREMITIES: 2+ peripheral pulses, no lower extremity edema and no calf tenderne ss. NEUROLOGIC EXAMINATION: Patient is awake, alert and oriented x3. ASSESSMENT Near syncope End-stage renal disease on hemodialysis Valvular heart disease Chronic diastolic heart failure, clinically euvolemic PLAN Symptoms related to volume depletion after dialysis. Nephrology is following. No evidence of arrhythmia or significant pauses on telemetry. Thank you kindly for this consultation. Nurse Practitioner note has been reviewed, I agree with a documented findings and plan of care. Patient was seen and examined. Past Medical History Past Medical History: Heart Failure, Dialysis, Hypertension, Prostate Disorder, Renal Disease Additional Past Medical History / Comment(s): Thrombocytemia/elevated platelets, CKD stage IV, anemia, BPH, gout R great toe, History of Any Multi-Drug Resistant Organisms: None Reported Past Surgical History: Tonsillectomy Additional Past Surgical History / Comment(s): BMA with biopsy, R hand index finger injury/partial amp, colonoscopy. Past Anesthesia/Blood Transfusion Reactions: No Reported Reaction Past Psychological History: No Psychological Hx Reported Additional Psychological History / Comment(s): Pt resides with his spouse. He is independent. Smoking Status: Never smoker Past Alcohol Use History: None Reported Additional Past Alcohol Use History / Comment(s): Just returned from a month long trip to [place]. Had occasional glass of wine on his trip but doesn't drink alcohol on a regular basis otherwise. Past Drug Use History: None Reported - Past Family History Father Family Medical History: Cancer, Hypertension, Renal Disease Additional Family Medical History / Comment(s): Kidney Cancer Mother Family Medical History: No Reported History Additional Family Medical History / Comment(s): Mother was healthy Medications and Allergies Home Medications Medication Instructions Recorded Confirmed Type Tamsulosin HCl [Flomax] 0.8 mg PO W/LUNCH 05/24/14 11/08/20 History Aspirin 81 mg PO DAILY 02/05/17 11/08/20 History allopurinoL [Zyloprim] 100 mg PO W/LUNCH 02/05/17 11/08/20 History Calcium Carbonate [Calcium] 600 mg PO BID@1200,1700 09/25/20 11/08/20 History Ergocalciferol [Vitamin D2 (1250 1,250 mcg PO Q30D 09/25/20 11/08/20 History Mcg = 64185 Iu)] Anagrelide HCl 1 mg PO BID 11/08/20 11/08/20 History Midodrine [ProAmatine] 5 mg PO MOWEFR 11/08/20 11/08/20 History Vit B Complx C/Folic Acid/Zinc 1 tab PO W/LUNCH 11/08/20 11/08/20 History [Renaplex Tablet] Allergies Allergy/AdvReac Type Severity Reaction Status Date / Time Iodinated Contrast Media AdvReac KIDNEY Verified 11/08/20 14:57 [Iodinated Contrast- Oral FAILURE and IV Dye] Physical Exam Vitals: Vital Signs Temp Pulse Pulse Resp BP BP Pulse Ox 11/09/20 06:32 174/71 11/09/20 05:15 98.2 F 70 16 198/84 97 11/08/20 22:55 97.8 F 73 16 173/78 97 11/08/20 20:40 97.6 F 73 16 187/76 98 11/08/20 20:00 98.1 F 71 18 170/78 99 11/08/20 19:00 81 20 178/81 99 11/08/20 18:00 72 18 197/97 99 11/08/20 15:01 65 18 185/87 98 11/08/20 14:05 65 16 177/73 97 11/08/20 13:03 97.9 F 71 16 120/63 98 Intake and Output 11/08/20 11/09/20 11/09/20 22:59 06:59 14:59 Intake Total 80 Output Total 120 440 Balance -120 -440 80 Intake: Oral 80 Output: Urine 120 440 Other: Voiding Method Toilet Toilet Diaper Diaper Weight 58.967 kg Results 11/09/20 06:42 11/09/20 06:42 Cardiac Enzymes 11/08/20 11/08/20 11/08/20 Range/Units 13:11 13:11 15:16 AST 17 (17-59) U/L Troponin I 0.038 H* 0.054 H* (0.000-0.034) ng/mL 11/08/20 Range/Units 18:40 AST (17-59) U/L Troponin I 0.063 H* (0.000-0.034) ng/mL Coagulation 11/08/20 Range/Units 13:11 PT 9.5 (9.0-12.0) sec APTT 24.2 (22.0-30.0) sec CBC 11/08/20 11/09/20 Range/Units 13:11 06:42 WBC 7.4 6.7 (3.8-10.6) k/uL RBC 3.58 L 3.19 L (4.30-5.90) m/uL Hgb 10.6 L 9.6 L (13.0-17.5) gm/dL Hct 32.2 L 28.9 L (39.0-53.0) % Plt Count 395 338 (150-450) k/uL Comprehensive Metabolic Panel 11/08/20 11/09/20 Range/Units 13:11 06:42 Sodium 137 137 (137-145) mmol/L Potassium 4.5 4.7 (3.5-5.1) mmol/L Chloride 98 102 (98-107) mmol/L Carbon Dioxide 30 28 (22-30) mmol/L BUN 82 H 86 H (9-20) mg/dL Creatinine 3.49 H 3.52 H (0.66-1.25) mg/dL Glucose 107 H 98 (74-99) mg/dL Calcium 10.1 10.2 (8.4-10.2) mg/dL AST 17 (17-59) U/L ALT 8 (4-49) U/L Alkaline Phosphatase 50 (38-126) U/L Total Protein 6.0 L (6.3-8.2) g/dL Albumin 3.7 (3.5-5.0) g/dL Current Medications Generic Name Dose Route Start Last Admin Trade Name Freq PRN Reason Stop Dose Admin Allopurinol 100 mg 11/09/20 12:30 Allopurinol 100 Mg Tab PO W/LUNCH CURTIS Aspirin 81 mg 11/09/20 09:00 Aspirin 81 Mg PO DAILY [facility] Calcium Carbonate/Glycine 500 mg 11/09/20 12:00 Calcium Carbonate 500 Mg Chewable PO BID@1200,1700 [facility] Ergocalciferol 1,250 mcg 12/05/20 09:00 Ergocalciferol 1,250 Mcg (50,000 Iu) Capsule PO Q30D [facility] Midodrine 5 mg 11/10/20 09:00 Midodrine 5 Mg Tab PO MOWEFR [facility] Multivit/Ca Carb/B Cmplx/FA/Prenat 1 each 11/09/20 12:30 Folic Acid-Vit B Complex-Vit C 1 Cap PO W/LUNCH [facility] Naloxone HCl 0.2 mg 11/08/20 14:44 Naloxone 0.4 Mg/Ml 1 Ml Vial IV Q2M PRN Opioid Reversal Non-Formulary Medication 1 mg 11/08/20 21:00 11/08/20 21:11 Anagrelide Hcl [Anagrelide Hcl] PO Not Given BID [facility] Tamsulosin HCl 0.8 mg 11/09/20 12:30 Tamsulosin 0.4 Mg Cap.Er.24h PO W/LUNCH [facility] Intake and Output 11/08/20 11/09/20 11/09/20 22:59 06:59 14:59 Intake Total 80 Output Total 120 440 Balance -120 -440 80 Intake: Oral 80 Output: Urine 120 440 Other: Voiding Method Toilet Toilet Diaper Diaper Weight 58.967 kg 11/09/20 06:42 11/09/20 06:42
[2020-11-09] MEDS ORDERED: allopurinoL 100 MG TAB PO SCH (12:30)
[2020-11-09] MEDS ORDERED: FOLIC ACID-VIT B COMPLEX-VIT C 1 CAP PO SCH (12:30)
[2020-11-09] MEDS ORDERED: TAMSULOSIN 0.4 MG CAP.ER.24H PO SCH (12:30)
--- NOTE | 2020-11-09 12:49 | CONS ---
CONSULTATION REASON FOR CONSULT: End-stage renal disease. HISTORY OF PRESENT ILLNESS: Patient is an 85-year-old male with end-stage renal disease, on hemodialysis on a Friday, Friday, Friday schedule. Patient was admitted to the hospital with complaints of lightheadedness and rapid heart rate about 120 per minute. The patient denies any chest pains or shortness of breath. However, he did state that he was lightheaded and dizzy a couple of times. He denies any nausea, vomiting or diarrhea. The patient was recently started on dialysis when he was admitted for worsening renal failure and volume overload about 3 weeks ago. Post hospitalization his cardiac enzymes have been within range. Troponin mildly elevated at 0.038. No evidence of heart failure noted on chest x-ray. The patient has fair urine output, although much less than predialysis. PAST MEDICAL HISTORY: End-stage renal disease, hypertension, history of BPH, thrombocytopenia, gout. PAST SURGICAL HISTORY: Tonsillectomy colonoscopy. SOCIAL HISTORY: Negative for smoking, drug abuse or alcohol abuse. MEDICATIONS PRIOR TO ADMISSION: Flomax, aspirin, Zyloprim, calcium, midodrine, RenaPlex. ALLERGIES: IV CONTRAST. PHYSICAL EXAMINATION: Patient is currently comfortable, awake, not in any acute distress. Blood pressure 183/68, heart rate 71 per minute, he is afebrile. Examination of the heart S1, S2. Examination of the lungs, bilateral breath sounds are heard. Abdomen is soft, nontender. Examination of lower extremities shows no evidence of edema. REHABILITATION PROGRAM COORDINATOR exam is grossly intact. LAB: Show sodium 137, potassium 4.7, chloride 102, BUN 86, creatinine 3.52, hemoglobin 9.6 g/dL. ASSESSMENT: 1. End-stage renal disease, on hemodialysis on a Friday, Friday, Friday schedule. 2. Hypertension. Discontinue the midodrine and add beta blockers for hypertension. 3. Lightheadedness and dizziness, most likely related to hypovolemia. 4. Chronic kidney disease mineral bone disorder. 5. History of benign prostatic hypertrophy. PLAN: DC midodrine. Add Coreg. We can hold off on dialysis today and plan for dialysis tomorrow on his regularly scheduled day, and patient can likely be discharged tomorrow. Thank you for this consultation. Will continue to follow the patient with you during his hospitalization. MMODL / IJN: [id number] /
--- NOTE | 2020-11-09 15:06 | P.DS ---
Providers Date of admission: 11/08/20 14:46 Attending physician: Junior Rand Consults: 11/08/20 14:45 Consult Physician Urgent Consulting Provider: Faisal Rebolledo Consult Reason/Comments: Near syncope Do you want consulting provider notified?: Yes Consult Physician Urgent Consulting Provider: Marci Harris Consult Reason/Comments: CR F, near-syncope Do you want consulting provider notified?: Yes Primary care physician: [facility] Course: Patient is a pleasant 85-year-old the male came in with compensative palpitations. Patient heart rate up and went up to 120 today. Patient does have history of chronic diastolic dysfunction patient was started on hemodialysis during his last hospitalization because of a cardiorenal syndrome. Because of his palpitations and lightheadedness patient did not get his hemodialysis today came to the ER. Patient denied any shortness of breath fever chills nausea vomiting dysuria. Chest x-ray did not show any pulmonary edema. Patient has mildly elevated troponin secondary to chronic kidney disease, end- stage renal disease, EKG showing the sinus rhythm with right bundle-branch block bifascicular block and a possible first-degree AV block. 11/09/2020 Patient the dizziness is believed to be secondary to excess removal of fluid from the during hemodialysis. Patient is hypotensive postdialysis. Will not add any other antidepressive medications patient will not require hemodialysis today and patient will undergo dialysis tomorrow. Patient will be discharged today PHYSICAL EXAMINATION: GENERAL: The patient is alert and oriented x3, not in any acute distress. Well developed, well nourished. HEENT: Pupils are round and equally reacting to light. EOMI. No scleral icterus. No conjunctival pallor. Normocephalic, atraumatic. No pharyngeal erythema. No thyromegaly. CARDIOVASCULAR: S1 and S2 present. No murmurs, rubs, or gallops. PULMONARY: Chest is clear to auscultation, no wheezing or crackles. ABDOMEN: Soft, nontender, nondistended, normoactive bowel sounds. No palpable organomegaly. MUSCULOSKELETAL: No joint swelling or deformity. EXTREMITIES: No cyanosis, clubbing, or pedal edema. NEUROLOGICAL: Gross neurological examination did not reveal any focal deficits. SKIN: No rashes. Assessment and plan -Complaints of palpitations and lightheadedness: Patient was monitored in telemetry no significant events. Palpitations and lightheadedness was believed to be secondary to hemodialysis and removal of excess fluid during hemodialysis. -Chronic diastolic dysfunction without any acute exacerbation -Cardiorenal syndrome, end-stage renal disease on hemodialysis, nephrology will be consulted patient will be started on dialysis most probably tomorrow patient is usually Friday hemodialysis patient appears to have missed his hemodialysis. Appears patient becomes hypotensive on the days of hemodialysis because of which patient is on midodrine on the days of hemodialysis. -Mildly elevated troponin secondary to renal dysfunction -Sick euthyroid syndrome with a low TSH and normal T4 TSH need to be repeated in about 3-4 weeks -Benign prostatic hypertrophy -Generalized weakness seconded to multiple medical problems, consult physical therapy and occupational therapy DVT prophylaxis: Subcutaneous heparin Plan - Discharge Summary Discharge Rx Participant: No New Discharge Prescriptions: Continue Tamsulosin HCl [Flomax] 0.8 mg PO W/LUNCH Aspirin 81 mg PO DAILY allopurinoL [Zyloprim] 100 mg PO W/LUNCH Calcium Carbonate [Calcium] 600 mg PO BID@1200,1700 Midodrine [ProAmatine] 5 mg PO MOWEFR Anagrelide HCl 1 mg PO BID Ergocalciferol [Vitamin D2 (1250 Mcg = 53240 Iu)] 1,250 mcg PO Q30D Vit B Complx C/Folic Acid/Zinc [Renaplex Tablet] 1 tab PO W/LUNCH Discharge Medication List Tamsulosin HCl [Flomax] 0.8 mg PO W/LUNCH 05/24/14 [History] Aspirin 81 mg PO DAILY 02/05/17 [History] allopurinoL [Zyloprim] 100 mg PO W/LUNCH 02/05/17 [History] Calcium Carbonate [Calcium] 600 mg PO BID@1200,1700 09/25/20 [History] Ergocalciferol [Vitamin D2 (1250 Mcg = 04642 Iu)] 1,250 mcg PO Q30D 09/25/20 [History] Anagrelide HCl 1 mg PO BID 11/08/20 [History] Midodrine [ProAmatine] 5 mg PO MOWEFR 11/08/20 [History] Vit B Complx C/Folic Acid/Zinc [Renaplex Tablet] 1 tab PO W/LUNCH 11/08/20 [History] Follow up Appointment(s)/Referral(s): Marci Harris MD [STAFF PHYSICIAN] - 12/12/20 11:20 am ([facility] ) Halie Ruffin MD [Primary Care Provider] - 11/15/20 2:30 pm (Appointment with PA. Precious ) Patient Instructions/Handouts: Heart Failure (DC), End Stage Kidney Disease (DC), Syncope in Older Adults (DC) Discharge Disposition: HOME SELF-CARE
[2020-11-10] MEDS ORDERED: MIDODRINE 5 MG TAB PO SCH (09:00)
[2020-12-05] MEDS ORDERED: ERGOCALCIFEROL 1,250 MCG (50,000 IU) CAPSULE PO SCH (09:00)
== END 2020-11-09 15:01 | disposition home or self-care (01) ==
LOC: EC 12:55 → 6NMEDSUR 14:46 → 3SCARD 17:59
PROVIDERS: ADMIT Internal Medicine; ATTEND Internal Medicine
DX: I95.3 Hypotension of hemodialysis (principal); I13.2 Hypertensive heart and chronic kidney disease with heart failure and with stage 5 chronic kidney disease, or end stage renal disease; N18.6 End stage renal disease; I50.32 Chronic diastolic (congestive) heart failure; I08.0 Rheumatic disorders of both mitral and aortic valves; E86.1 Hypovolemia; I45.2 Bifascicular block; E07.81 Sick-euthyroid syndrome; D69.6 Thrombocytopenia, unspecified; N40.0 Benign prostatic hyperplasia without lower urinary tract symptoms; D64.9 Anemia, unspecified; M10.9 Gout, unspecified; M89.9 Disorder of bone, unspecified; Z20.822 Contact with and (suspected) exposure to COVID-19; Z99.2 Dependence on renal dialysis; Z79.82 Long term (current) use of aspirin; Z79.899 Other long term (current) drug therapy; Z91.041 Radiographic dye allergy status; Z89.021 Acquired absence of right finger(s); Z80.51 Family history of malignant neoplasm of kidney; Z82.49 Family history of ischemic heart disease and other diseases of the circulatory system
CPT/HCPCS: 96374; 99285; 36415; 93005; 97161; 97165; 84439; 84481; 80053; 80048; 83735; 84443; 84484; 85025; 85027; 85610; 85730; 87635; 71046; G0378 ×3; J0360

== ENCOUNTER → 2021-01-16 | Outpatient (CLI) | payer MEDICARE ==
--- NOTE | 2021-01-16 15:02 | US ---
EXAMINATION TYPE: US kidneys/renal and bladder DATE OF EXAM: 01/16/2021 COMPARISON: US 12/17/17 CLINICAL HISTORY: R10.9 Flank pain. Right flank pain intermittently x 3 months EXAM MEASUREMENTS: Right Kidney: 10.7 x 4.9 x 4.5 cm Left Kidney: 10.2 x 4.3 x 4.3 cm Post Void Residual Volume: Not calculated mL Right Kidney: No hydronephrosis or masses seen, Multiple cysts seen. Largest upper pole = 4.8 x 4.7 x 4.0 cm (previously measured 3.5 cm), Inferior = 2.8 x 3.1 x 2.4 cm Left Kidney: No hydronephrosis or masses seen, Multiple cysts seen. Largest upper pole= 1.9 x 1.6 x 1 .5 cm (Previously measured 1.1 cm), 1.7 x 1.2 x 1.3 c m, Inferior pole = 1.6 x 1.6 x 1.4 cm Bladder: Not fully distended Bilateral Jets seen: No Normal Post Void Residual: Not calculated. Bladder nearly empty. IMPRESSION: 1. Multiple bilateral simple appearing renal cysts
== END | disposition home or self-care (01) ==
LOC: RADUSWWP 12:04
PROVIDERS: ATTEND Internal Medicine Nephrology
DX: N28.1 Cyst of kidney, acquired (principal)
CPT/HCPCS: 76770

== ENCOUNTER 2021-01-30 11:38 | Day surgery (SDC) | payer MEDICARE ==
[~2021-01-30 11:38] MED LIST: ACETAMINOPHEN TAB 500 MG TAB PO PRN; HEPARIN SODIUM,PORCINE/PF 5,000 UNIT/0.5 ML SYRINGE SQ PRN; LACTATED RINGERS 1,000 ML IV SCH; LIDOCAINE 1% (10MG/ML) FOR IV START INTRADERMA PRN; ONDANSETRON 4 MG/2 ML VIAL IVP ONE; fentaNYL (PF) 50 MCG/ML 2 ML AMP IV PRN
[2021-01-30 12:04] VITALS: RESP 16
[2021-01-30] MEDS ORDERED: fentaNYL (PF) 50 MCG/ML 2 ML AMP ONE (12:55)
[2021-01-30] MEDS ORDERED: LIDOCAINE 1% INJ 10MG/ML (20 ML MDV) ONE (12:55)
[2021-01-30] MEDS ORDERED: PROPOFOL 10 MG/ML 20 ML VIAL IV ONE (12:55)
[2021-01-30] MEDS ORDERED: MIDAZOLAM 2 MG/2 ML VIAL ONE (12:55)
[2021-01-30] MEDS ORDERED: BUPIVACAINE (PF) 0.25% 30 ML VIAL SQ ONE (13:16)
[2021-01-30] MEDS ORDERED: HYDROmorphone 0.5 MG/0.5 ML SYRINGE IVP PRN (13:54)
[2021-01-30] MEDS ORDERED: ACETAMINOPHEN TAB 325 MG TAB PO PRN (13:54)
[2021-01-30] MEDS ORDERED: NALOXONE 0.4 MG/ML 1 ML VIAL IV PRN (13:54)
--- NOTE | 2021-01-30 13:55 | P.OP ---
Date of Procedure: 01/30/21 Procedure(s) Performed: PREOPERATIVE DIAGNOSIS: Renal failure POSTOPERATIVE DIAGNOSIS: Same PROCEDURE: Peritoneal dialysis catheter insertion SURGEON: Mike EBL: Minimal ANESTHESIA: Sedation plus local COMPLICATIONS: None OPERATIVE PROCEDURE: The patient was placed in the operative table in the supine position. The abdomen was prepped and draped in usual sterile fashion. A small vertical incision was made in the [] periumbilical location. Dissection down through the subcutaneous tissues took place using electrocautery. The anterior rectus was divided vertically using the scalpel. The rectus was bluntly. The posterior rectus was visualized. An 0 Vicryl pursestring was placed. A small opening in the posterior rectus fascia and peritoneum took place using a Metzenbaum scissors. There were no adhesions to the suture that was placed. The pigtail catheter was advanced into the pelvis over a stylette. No resistance was met. The inner cuff was secured to the fascia using the 0 Vicryl pursestring that was placed. The catheter was tunneled to an exit site in the right lateral lower quadrant. The catheter was connected to the 1 L bag of saline and approximated 800 mL of saline was easily introduced into the peritoneal cavity. The fluid was then allowed to evacuate. The majority of the fluid was returned. The anterior rectus fascia was then reapproximated using a running 0 Vicryl stitch. The subcutaneous tissues reprepped using 3-0 Vicryl sutures and the skin using 4-0 Monocryl sutures. The outpatient dialysis adapter was applied to the end of the catheter. Sterile dressings were then applied after skin glue was placed over the incision. DISPOSITION: Stable to recovery room
[2021-01-30 13:56] VITALS: TEMP 98
[2021-01-30 14:42] VITALS: BP 176/54; PULSE 55
== END 2021-01-30 15:22 | disposition home or self-care (01) ==
LOC: OR 11:38
PROVIDERS: ATTEND Surgery
DX: N19 Unspecified kidney failure (principal)
CPT/HCPCS: 49421; C1752; J2250; J0690; J2405; J2001; J3010; J2704; J1644

== ENCOUNTER 2021-03-19 09:06 | Emergency (ER) | payer MEDICARE ==
--- NOTE | 2021-03-19 09:30 | ED ---
General Adult HPI - General Chief complaint: Upper Respiratory Infection Stated complaint: chest pain with cough Source: patient Mode of arrival: wheelchair Limitations: no limitations - History of Present Illness Initial comments: This is an 85-year-old male who presents to the emergency department with past medical history significant for dialysis, hypertension and heart failure. Patient comes in today because he has been coughing since he woke up this morning when he coughs he has sharp chest pain the middle of his chest. Patient states it's not there when he doesn't cough and it is not reproducible with palpation. Patient states only last 1-2 seconds. Patient denies any difficulty breathing shortness of breath more than normal. Patient denies any palpitations. Patient denies any recent fever chills or cough. Patient states he does have this COVID vaccine. Patient denies any headache patient denies numbness weakness. Patient denies any lightheadedness or dizziness. Patient has a swollen to the legs. - Related Data Home Medications Medication Instructions Recorded Confirmed Tamsulosin HCl [Flomax] 0.8 mg PO AC-LUNCH 05/24/14 03/19/21 Aspirin 81 mg PO DAILY 02/05/17 03/19/21 allopurinoL [Zyloprim] 100 mg PO AC-LUNCH 02/05/17 03/19/21 Ergocalciferol [Vitamin D2 (1250 1,250 mcg PO Q30D 09/25/20 03/19/21 Mcg = 67657 Iu)] Anagrelide HCl [Agrylin] 1 mg PO BID 11/08/20 03/19/21 NIFEdipine XL [Procardia XL] 30 mg PO AC-SUPPER 01/26/21 03/19/21 Nadolol [Corgard] 40 mg PO DAILY 01/26/21 03/19/21 Lisinopril [Prinivil] 10 mg PO BID 03/19/21 03/19/21 Vit B Complx C/Folic Acid/Zinc 1 tab PO DAILY 03/19/21 03/19/21 [Renaplex Tablet] Allergies Allergy/AdvReac Type Severity Reaction Status Date / Time Iodinated Contrast Media AdvReac KIDNEY Verified 03/19/21 11:31 [Iodinated Contrast- Oral FAILURE and IV Dye] Review of Systems ROS Statement: Those systems with pertinent positive or pertinent negative responses have been documented in the HPI. ROS Other: All systems not noted in ROS Statement are negative. Past Medical History Past Medical History: Heart Failure, Dialysis, Hypertension, Prostate Disorder, Renal Disease Additional Past Medical History / Comment(s): CURRENTLY DOING HEMODIALYSIS @ [facility] ([facility]). Thrombocytemia/elevated platelets. CKD stage IV. Anemia. BPH. 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 R hand index finger injury/partial amp. Colonoscopy. Past Anesthesia/Blood Transfusion Reactions: No Reported Reaction Past Psychological History: No Psychological Hx Reported Smoking Status: Never smoker Past Alcohol Use History: Rare Past Drug Use History: None Reported - Past Family History Father Family Medical History: Cancer, Hypertension, Renal Disease Additional Family Medical History / Comment(s): Kidney Cancer Mother Family Medical History: No Reported History Additional Family Medical History / Comment(s): Mother was healthy General Exam - General Exam Comments Initial Comments: GENERAL: Patient is well-developed and well-nourished. Patient is nontoxic and well- hydrated and is in no acute distress. ENT: Neck is soft and supple. No significant lymphadenopathy is noted. Oropharynx is clear. Moist mucous membranes. Neck has full range of motion without eliciting any pain. EYES: The sclera were anicteric and conjunctiva were pink and moist. Extraocular movements were intact and pupils were equal round and reactive to light. Eyelids were unremarkable. PULMONARY: Unlabored respirations. Good breath sounds bilaterally. No audible rales rhonchi or wheezing was noted. CARDIOVASCULAR: There is a regular rate and rhythm without any murmurs gallops or rubs. ABDOMEN: Soft and nontender with normal bowel sounds. SKIN: Skin is clear with no lesions or rashes and otherwise unremarkable. NEUROLOGIC: Patient is alert and oriented x3. Cranial nerves II through XII are grossly intact. Motor and sensory are also intact. Normal speech, volume and content. Symmetrical smile. MUSCULOSKELETAL: Normal extremities with adequate strength and full range of motion. No lower e xtremity swelling or edema. No calf tenderness. LYMPHATICS: No significant lymphadenopathy is noted PSYCHIATRIC: Normal psychiatric evaluation. Limitations: no limitations Course Vital Signs 03/19/21 03/19/21 03/19/21 09:06 09:19 11:39 Temperature 97.0 F L 98.2 F 98.3 F Pulse Rate 73 64 Respiratory 18 18 16 Rate Blood Pressure 198/123 194/95 O2 Sat by Pulse 94 L 95 Oximetry 03/19/21 12:26 Temperature Pulse Rate 64 Respiratory 16 Rate Blood Pressure 188/90 O2 Sat by Pulse 96 Oximetry Medical Decision Making - Medical Decision Making EKG shows sinus rhythm at 65 bpm DE interval is 236 QRS is 166 QT interval 450 QTC is 460. Patient has a right bundle branch block. Patient was COVID positive and received monoclonal antibodies. Patient's creatinine was more elevated than his baseline I spoke with Dr. Wright who spoke with Dr. Sweeney the fisheries technical officer and he was okay with the patient going home to follow-up with lab work later this week and a prescription will be given to the patient for lab work later this week Chest x-ray shows no acute abnormality - Lab Data Result diagrams: 03/19/21 09:39 03/19/21 09:39 Lab Results 03/19/21 03/19/21 03/19/21 Range/Units 09:39 09:39 09:39 WBC 5.8 (3.8-10.6) k/uL RBC 3.43 L (4.30-5.90) m/uL Hgb 11.1 L (13.0-17.5) gm/dL Hct 32.2 L (39.0-53.0) % MCV 93.7 (80.0-100.0) fL MCH 32.2 (25.0-35.0) pg MCHC 34.4 (31.0-37.0) g/dL RDW 15.6 H (11.5-15.5) % Plt Count 470 H (150-450) k/uL MPV 10.1 Neutrophils % (Manual) 78 % Lymphocytes % (Manual) 3 % Monocytes % (Manual) 14 % Eosinophils % (Manual) 5 % Neutrophils # (Manual) 4.52 (1.3-7.7) k/uL Lymphocytes # (Manual) 0.17 L (1.0-4.8) k/uL Monocytes # (Manual) 0.81 (0-1.0) k/uL Eosinophils # (Manual) 0.29 (0-0.7) k/uL Nucleated RBCs 0 (0-0) /100 WBC Manual Slide Review Performed Poikilocytosis (manual Present Sodium 130 L (137-145) mmol/L Potassium 5.4 H (3.5-5.1) mmol/L Chloride 92 L (98-107) mmol/L Carbon Dioxide 21 L (22-30) mmol/L Anion Gap 17 mmol/L BUN 117 H* (9-20) mg/dL Creatinine 7.88 H* (0.66-1.25) mg/dL Est GFR (CKD-EPI)AfAm 7 (>60 ml/min/1.73 sqM) Est GFR (CKD-EPI)NonAf 6 (>60 ml/min/1.73 sqM) Glucose 109 H (74-99) mg/dL Calcium 9.4 (8.4-10.2) mg/dL Total Bilirubin 0.3 (0.2-1.3) mg/dL AST 21 (17-59) U/L ALT 15 (4-49) U/L Alkaline Phosphatase 45 (38-126) U/L Troponin I (0.000-0.034) ng/mL Total Protein 6.0 L (6.3-8.2) g/dL Albumin 3.6 (3.5-5.0) g/dL Coronavirus (PCR) Detected A (Not Detectd) 03/19/21 Range/Units 09:39 WBC (3.8-10.6) k/uL RBC (4.30-5.90) m/uL Hgb (13.0-17.5) gm/dL Hct (39.0-53.0) % MCV (80.0-100.0) fL MCH (25.0-35.0) pg MCHC (31.0-37.0) g/dL RDW (11.5-15.5) % Plt Count (150-450) k/uL MPV Neutrophils % (Manual) % Lymphocytes % (Manual) % Monocytes % (Manual) % Eosinophils % (Manual) % Neutrophils # (Manual) (1.3-7.7) k/uL Lymphocytes # (Manual) (1.0-4.8) k/uL Monocytes # (Manual) (0-1.0) k/uL Eosinophils # (Manual) (0-0.7) k/uL Nucleated RBCs (0-0) /100 WBC Manual Slide Review Poikilocytosis (manual Sodium (137-145) mmol/L Potassium (3.5-5.1) mmol/L Chloride (98-107) mmol/L Carbon Dioxide (22-30) mmol/L Anion Gap mmol/L BUN (9-20) mg/dL Creatinine (0.66-1.25) mg/dL Est GFR (CKD-EPI)AfAm (>60 ml/min/1.73 sqM) Est GFR (CKD-EPI)NonAf (>60 ml/min/1.73 sqM) Glucose (74-99) mg/dL Calcium (8.4-10.2) mg/dL Total Bilirubin (0.2-1.3) mg/dL AST (17-59) U/L ALT (4-49) U/L Alkaline Phosphatase (38-126) U/L Troponin I 0.036 H* (0.000-0.034) ng/mL Total Protein (6.3-8.2) g/dL Albumin (3.5-5.0) g/dL Coronavirus (PCR) (Not Detectd) Disposition Clinical Impression: COVID-19 Disposition: HOME SELF-CARE Instructions (If sedation given, give patient instructions): Coronavirus Disease 2019 (COVID-19) Is patient prescribed a controlled substance at d/c from ED?: No Referrals: Halie Ruffin MD [Primary Care Provider] - 1-2 days Time of Disposition: 11:21
--- NOTE | 2021-03-19 09:53 | XR ---
EXAMINATION TYPE: XR chest 2V DATE OF EXAM: 03/19/2021 COMPARISON: NONE TECHNIQUE: PA and lateral views submitted. HISTORY: Difficulty breathing FINDINGS: Dialysis catheter noted with the tip overlying the SVC. No pneumothorax. Heart size normal. Elevated left hemidiaphragm with basilar infiltrate and small effusion. No overt failure. Degenerative changes spine. IMPRESSION: 1. Left lower lobe infiltrate and small effusion. 2. COPD.
[2021-03-19 10:12] LABS: Albumin 3.6 g/dL (3.5-5.0); Calcium 9.4 mg/dL (8.4-10.2); Potassium 5.4 mmol/L (3.5-5.1); Total Bilirubin 0.3 mg/dL (0.2-1.3)
[2021-03-19 10:31] LABS: HCT 32.2 % (39.0-53.0); HGB 11.1 gm/dL (13.0-17.5); MCH 32.2 pg (25.0-35.0); MCHC 34.4 g/dL (31.0-37.0); MCV 93.7 fL (80.0-100.0); Mean Platelet Volume 10.1; Platelet Count 470 k/uL (150-450); RBC 3.43 m/uL (4.30-5.90); RDW 15.6 % (11.5-15.5); WBC 5.8 k/uL (3.8-10.6)
[2021-03-19 10:44] LABS: Eosinophils # (M) 0.29 k/uL (0-0.7); Lymphocytes # (M) 0.17 k/uL (1.0-4.8); Monocytes # (M) 0.81 k/uL (0-1.0); Neutrophils # (M) 4.52 k/uL (1.3-7.7); Neutrophils % (M) 78 %; Nucleated Red Blood Cells 0 /100 WBC (0-0); Total Cells Counted 100
[2021-03-19] MEDS ORDERED: SODIUM CHLORIDE 0.9% 50 ML IVPB ONE (11:15)
[2021-03-19 11:19] LABS: Poikilocytosis (M) Present
[2021-03-19] MEDS ORDERED: BAMLANIVIMAB (EUA) 700 MG, ETESEVIMAB (EUA) 1,400 MG in SODIUM CHLORIDE 0.9% 50 ML IVPB ONE (11:30)
[2021-03-19 11:39] VITALS: PULSE 64; RESP 16; TEMP 98.3
[2021-03-19 12:27] VITALS: BP 188/90
== END 2021-03-19 13:39 | disposition home or self-care (01) ==
LOC: EC 09:06
DX: U07.1 COVID-19 (principal); I13.0 Hypertensive heart and chronic kidney disease with heart failure and stage 1 through stage 4 chronic kidney disease, or unspecified chronic kidney disease; I50.9 Heart failure, unspecified; N18.4 Chronic kidney disease, stage 4 (severe); Z79.82 Long term (current) use of aspirin; Z99.2 Dependence on renal dialysis; Z90.89 Acquired absence of other organs; Z79.899 Other long term (current) drug therapy
CPT/HCPCS: 99285 ×2; 96365; 36415; 93005; 80053; 84484; 85025; 87635; 71046; M0245; J3490

== ENCOUNTER 2021-03-25 11:37 | Emergency (ER) | payer MEDICARE ==
[2021-03-25 11:54] VITALS: BP 162/79; PULSE 70; RESP 18; TEMP 96.8
--- NOTE | 2021-03-25 13:46 | ED ---
General Adult HPI - General Chief complaint: Recheck/Abnormal Lab/Rx Stated complaint: Blood in dialysis bag Time Seen by Provider: 03/25/21 13:07 Source: patient, RN notes reviewed, old records reviewed Mode of arrival: ambulatory Limitations: no limitations - History of Present Illness Initial comments: 85-year-old male presenting for evaluation of blood tinged peritoneal dialysis fluid. Patient had catheter placed approximately 3 weeks ago. He has been doing dialysis 4 times daily with good result. He has not had any previous bleeding. He is not on any anticoagulation. He denies any abdominal pain or fever. He's had some diarrhea since initiating peritoneal dialysis without any other issue. - Related Data Home Medications Medication Instructions Recorded Confirmed Tamsulosin HCl [Flomax] 0.8 mg PO AC-LUNCH 05/24/14 03/19/21 Aspirin 81 mg PO DAILY 02/05/17 03/19/21 allopurinoL [Zyloprim] 100 mg PO AC-LUNCH 02/05/17 03/19/21 Ergocalciferol [Vitamin D2 (1250 1,250 mcg PO Q30D 09/25/20 03/19/21 Mcg = 46752 Iu)] Anagrelide HCl [Agrylin] 1 mg PO BID 11/08/20 03/19/21 NIFEdipine XL [Procardia XL] 30 mg PO AC-SUPPER 01/26/21 03/19/21 Nadolol [Corgard] 40 mg PO DAILY 01/26/21 03/19/21 Lisinopril [Prinivil] 10 mg PO BID 03/19/21 03/19/21 Vit B Complx C/Folic Acid/Zinc 1 tab PO DAILY 03/19/21 03/19/21 [Renaplex Tablet] Allergies Allergy/AdvReac Type Severity Reaction Status Date / Time Iodinated Contrast Media AdvReac KIDNEY Verified 03/19/21 11:31 [Iodinated Contrast- Oral FAILURE and IV Dye] Review of Systems ROS Statement: Those systems with pertinent positive or pertinent negative responses have been documented in the HPI. ROS Other: All systems not noted in ROS Statement are negative. Past Medical History Past Medical History: Heart Failure, Dialysis, Hypertension, Prostate Disorder, Renal Disease Additional Past Medical History / Comment(s): CURRENTLY DOING HEMODIALYSIS @ [facility] ([facility]). Thrombocytemia/elevated platelets. CKD stage IV. Anemia. BPH. 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 R hand index finger injury/partial amp. Colonoscopy. Past Anesthesia/Blood Transfusion Reactions: No Reported Reaction Past Psychological History: No Psychological Hx Reported Smoking Status: Never smoker Past Alcohol Use History: Rare Past Drug Use History: None Reported - Past Family History Father Family Medical History: Cancer, Hypertension, Renal Disease Additional Family Medical History / Comment(s): Kidney Cancer Mother Family Medical History: No Reported History Additional Family Medical History / Comment(s): Mother was healthy General Exam Limitations: no limitations General appearance: alert, in no apparent distress Head exam: Present: atraumatic, normocephalic Eye exam: Present: normal appearance, PERRL Neck exam: Present: normal inspection. Absent: tenderness, meningismus Respiratory exam: Present: normal lung sounds bilaterally. Absent: respiratory distress, wheezes Cardiovascular Exam: Present: regular rate. Absent: normal rhythm, bradycardia, tachycardia GI/Abdominal exam: Present: soft. Absent: distended, tenderness, guarding Extremities exam: Present: normal inspection, normal capillary refill. Absent: pedal edema Neurological exam: Present: alert, oriented X3, CN II-XII intact. Absent: motor sensory deficit Psychiatric exam: Present: normal affect, normal mood Skin exam: Present: warm, dry, intact. Absent: cyanosis, diaphoretic Course Vital Signs 03/25/21 11:52 Temperature 96.8 F L Pulse Rate 70 Respiratory 18 Rate Blood Pressure 162/79 O2 Sat by Pulse 98 Oximetry Medical Decision Making - Medical Decision Making I did discuss case with Dr. Mckeon who is patient's surgeon, at this time we will observe without further evaluation or treatment. The patient will monitor the dialysate and return with worsening bleeding pain. He will return with lightheadedness or fever. The fluid is light red without clots. Disposition Clinical Impression: Peritoneal dialysis catheter in place Disposition: HOME SELF-CARE Condition: Fair Instructions (If sedation given, give patient instructions): Peritoneal Dialysis (DC), Peritoneal Dialysis Catheter Care (ED) Additional Instructions: Please monitor for worsening bleeding. Please return with lightheadedness, abdominal pain, fever. Is patient prescribed a controlled substance at d/c from ED?: No Referrals: Halie Ruffin MD [Primary Care Provider] - 1-2 days Jeyson Mckeon MD [Medical Doctor] - 1-2 days Time of Disposition: 13:46
== END 2021-03-25 14:08 | disposition home or self-care (01) ==
LOC: EC 11:37
DX: Z49.02 Encounter for fitting and adjustment of peritoneal dialysis catheter (principal); I13.0 Hypertensive heart and chronic kidney disease with heart failure and stage 1 through stage 4 chronic kidney disease, or unspecified chronic kidney disease; I50.9 Heart failure, unspecified; N18.4 Chronic kidney disease, stage 4 (severe); N40.0 Benign prostatic hyperplasia without lower urinary tract symptoms; M10.9 Gout, unspecified; Z79.82 Long term (current) use of aspirin; Z79.899 Other long term (current) drug therapy; Z82.49 Family history of ischemic heart disease and other diseases of the circulatory system
CPT/HCPCS: 99282

== ENCOUNTER 2022-08-17 14:05 | Inpatient (IN) | payer MEDICARE ==
[2022-08-17] MEDS ORDERED: CALCIUM CHLORIDE 100 MG/ML 10 ML SYRINGE IVP STA (14:19)
[2022-08-17 14:32] LABS: Glucose,Whole Blood 97 mg/dL (70-110)
[2022-08-17] MEDS ORDERED: INSULIN REGULAR 100 UNIT/ML VIAL (IV) IV ONE (14:37)
[2022-08-17 14:40] LABS: ALT 10 U/L (4-49); AST 17 U/L (17-59); African American GFR (CKD) 11 (>60 ml/min/1.73 sqM); Alkaline Phosphatase 46 U/L (38-126); Anion Gap 8 mmol/L; Blood Urea Nitrogen 84 mg/dL (9-20); Calcium 9.8 mg/dL (8.4-10.2); Carbon Dioxide 29 mmol/L (22-30); Chloride 97 mmol/L (98-107); Glucose 89 mg/dL (74-99); Non-African American GFR(CKD) 9 (>60 ml/min/1.73 sqM); Phosphorus 3.7 mg/dL (2.5-4.5); Potassium 4.3 mmol/L (3.5-5.1); Sodium 134 mmol/L (137-145); Total Bilirubin 0.3 mg/dL (0.2-1.3); Total Protein 5.2 g/dL (6.3-8.2)
--- NOTE | 2022-08-17 14:44 | XR ---
EXAMINATION TYPE: XR chest 1V DATE OF EXAM: 08/17/2022 HISTORY: Shortness of breath. COMPARISON: 03/31/2021 TECHNIQUE: Single view of the chest is submitted. FINDINGS: Demonstrated are scattered senescent parenchymal change. There is no evidence for focal infiltrate. Continued cardiomegaly with pulmonary venous congestion. Mild interstitial edema is difficult to excl ude. Correlate clinically. Pleural-based calcification right hemidiaphragm with the eventration. Hilar and mediastinal structures are within normal limits. Degenerative changes are seen of the dorsal spine. IMPRESSION: 1. Correlate for mild congestive failure.
--- NOTE | 2022-08-17 14:53 | ED ---
General Adult HPI - General Chief complaint: Syncope Stated complaint: Bradycardia Time Seen by Provider: 08/17/22 14:10 Source: patient, EMS Mode of arrival: EMS Limitations: no limitations - History of Present Illness Initial comments: 86-year-old man with past medical history of end-stage renal disease on peritoneal dialysis, hypertension, congestive heart failure who presents to the emergency department for syncope. EMS provided the history. They state that one and a half hours before EMS arrival the patient was at home and stated that he was lightheaded. He ended up having a syncopal episode without injury which was witnessed by family. He did not have any fall. No head injury. He is not on any anticoagulants. EMS found the patient's to be extremely bradycardic. Twelve-lead was completed which demonstrated a third-degree heart block. Blood pressure and mentation were normal. Upon arrival the patient reports that he has had some issues with his peritoneal dialysis. His son further elaborates that he did have hemodialysis on Friday and Friday because of the peritoneal issues. They attempted to do peritoneal dialysis on however he did not drain appropriately. Last night was the first night that the dialysis went without issue. He did not take his medications yet this morning. He is on a beta spencer and a calcium channel spencer. Reports that the calcium channel spencer was recently increased in dosage. He was hospitalized and [facility] a couple weeks ago for an infection. Son cannot elaborate as to what kind of infection he had however patient is no longer on any antibiotics. Patient denies any chest pain or shortness of breath. Does admit to nausea. No other alleviating, precipitating or modifying factors - Related Data Home Medications Medication Instructions Recorded Confirmed Tamsulosin HCl [Flomax] 0.4 mg PO BID 05/24/14 08/17/22 Anagrelide HCl [Agrylin] 1 mg PO TID 11/08/20 08/17/22 NIFEdipine XL [Procardia XL] 30 mg PO BID 01/26/21 08/17/22 Vit B Complx C/Folic Acid/Zinc 1 tab PO DAILY 03/19/21 08/17/22 [Renaplex Tablet] Acetaminophen Tab [Tylenol] 650 mg PO Q4H PRN 08/17/22 08/17/22 Calcium Carbonate [Tums] 1,000 mg PO TID 08/17/22 08/17/22 Furosemide [Lasix] 80 mg PO BID 08/17/22 08/17/22 Pantoprazole Sodium [Protonix] 40 mg PO DAILY 08/17/22 08/17/22 allopurinoL [Zyloprim] 100 mg PO DAILY 08/17/22 08/17/22 calcitrioL [Calcitriol] 0.25 mcg PO MOTUWETHFR 08/17/22 08/17/22 hydrALAZINE HCL [Apresoline] 50 mg PO BID 08/17/22 08/17/22 Previous Rx's Medication Instructions Recorded Cephalexin [Keflex] 250 mg PO Q8HR #42 capsule 08/26/22 Allergies Allergy/AdvReac Type Severity Reaction Status Date / Time No Known Allergies Allergy Verified 06/27/22 10:23 Review of Systems ROS Statement: Those systems with pertinent positive or pertinent negative responses have been documented in the HPI. ROS Other: All systems not noted in ROS Statement are negative. Past Medical History Past Medical History: Heart Failure, Dialysis, Hypertension, Prostate Disorder, Renal Disease Additional Past Medical History / Comment(s): CURRENTLY DOING HEMODIALYSIS @ [facility] ([facility] Thrombocytemia/elevated platelets. CKD stage IV. Anemia. BPH. 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 R hand index finger injury/partial amp. Colonoscopy. Past Anesthesia/Blood Transfusion Reactions: No Reported Reaction Past Psychological History: No Psychological Hx Reported Smoking Status: Never smoker Past Alcohol Use History: Rare Past Drug Use History: None Reported - Past Family History Father Family Medical History: Cancer, Hypertension, Renal Disease Additional Family Medical History / Comment(s): Kidney Cancer Mother Family Medical History: No Reported History Additional Family Medical History / Comment(s): Mother was healthy General Exam Limitations: no limitations General appearance: alert, in no apparent distress Head exam: Present: atraumatic, normocephalic, normal inspection Eye exam: Present: normal appearance, PERRL, EOMI. Absent: scleral icterus, conjunctival injection, periorbital swelling ENT exam: Present: normal exam, mucous membranes moist Neck exam: Present: normal inspection. Absent: tenderness, meningismus, lympha denopathy Respiratory exam: Present: normal lung sounds bilaterally. Absent: respiratory distress, wheezes, rales, rhonchi, stridor Cardiovascular Exam: Present: bradycardia, irregular rhythm. Absent: systolic murmur, diastolic murmur, rubs, gallop, clicks GI/Abdominal exam: Present: soft, normal bowel sounds. Absent: distended, tenderness, guarding, rebound, rigid Extremities exam: Present: normal inspection, full ROM, normal capillary refill. Absent: tenderness, pedal edema, joint swelling, calf tenderness Back exam: Present: normal inspection Neurological exam: Present: alert, oriented X3, CN II-XII intact Psychiatric exam: Present: normal affect, normal mood Skin exam: Present: warm, dry, intact, normal color. Absent: rash Course Vital Signs 08/17/22 08/17/22 08/17/22 14:09 14:54 15:00 Temperature 96.6 F L Pulse Rate 25 L 80 80 Respiratory 18 18 18 Rate Blood Pressure 132/116 157/78 O2 Sat by Pulse 96 100 Oximetry EKG Findings - EKG Comments: EKG Findings:: EKG does demonstrate a third-degree heart block with a rate of 28. QRS 168. QTC of 499. No acute ST segment elevations or depressions Medical Decision Making - Medical Decision Making Was pt. sent in by a medical professional or institution (CRISTOPHER Hester, [employer] BILL OPERATOR, urgent care, hospital, or [facility]...) When possible be specific @-No Did you speak to anyone other than the patient for history (EMS, parent, family, police, friend...)? What history was obtained from this source @ -EMS provided history from scene Did you review nursing and triage notes (agree or disagree)? Why? @ -I reviewed and agree with nursing and triage notes Were old charts reviewed (outside hosp., previous admission, EMS record, old EKG, old radiological studies, urgent care reports/EKG's, [facility] records)? Report findings @ -No old charts were reviewed Differential Diagnosis (chest pain, altered mental status, abdominal pain women, abdominal pain men, vaginal bleeding, weakness, fever, dyspnea, syncope, headache, dizziness, GI bleed, back pain, seizure, CVA, palpatations, mental health, musculoskeletal)? @ -Differential Palpitations Ventricular arrhythmias, atrial arrhythmias, myocardial infarction, anemia, thyrotoxicosis, electrolyte imbalance, hypokalemia, pulmonary embolism, pulmonary disease, drugs, alcohol, anxiety, stress.... This is not meant to be an all-inclusive list. EKG interpreted by me (3pts min.). @ -As above X-rays interpreted by me (1pt min.). @ -Yes CT interpreted by me (1pt min.). @ -None done U/S interpreted by me (1pt. min.). @ -None done What testing was considered but not performed or refused? (CT, X-rays, U/S, labs)? Why? @ -None What meds were considered but not given or refused? Why? @ -None Did you discuss the management of the patient with other professionals (professionals i.e. , PA, DUCK BILL OPERATOR, lab, RT, psych nurse, director social welfare, division merchandise manager, teacher, returning officer, pillowcase folder)? Give summary @ -Dr. Badillo - patient to go to [employer] [facility] for for a pacemaker Was smoking cessation discussed for >3mins.? @ -No Was critical care preformed (if so, how long)? @ -Yes, 42 minutes Were there social determinants of health that impacted care today? How? ( Homelessness, low income, unemployed, alcoholism, drug addiction, transportation, low edu. Level, literacy, decrease access to med. care, long-term, rehab)? @ -No Was there de-escalation of care discussed even if they declined (Discuss DNR or withdrawal of care, Hospice)? DNR status @ -Yes however patient wants to remain a full code. I also discussed this with the patient's son What co-morbidities impacted this encounter? (DM, HTN, Smoking, COPD, CAD, Cancer, CVA, ARF, Chemo, Hep., AIDS, mental health diagnosis, sleep apnea, morbid obesity)? @ -End-stage renal disease on peritoneal dialysis, hypertension Was patient admitted / discharged? Hospital course, mention meds given and rou te, prescriptions, significant lab abnormalities, going to OR and other pertinent info. @ -Upon arrival patient was promptly placed in a trauma 2. He is placed on continuous pulse ox and cardiac monitoring. Zoll monitor is attached the patient. He does have an extreme a bradycardic heart rate with a good radial pulse. Patient has a stable hypertensive blood pressure and is mentating appropriately. We did conduct laboratory studies. I did give him an amp of calcium chloride as I am concerned that the patient may have a hyperkalemic issue causing him to be in an irregular rhythm. Patient does have an episode of PEA. No palpable pulse however there is some P waves visualized on the heart monitor. Because he is unresponsive we began bagging the patient and he does receive chest compressions for 20 seconds. He is given one epinephrine. Patient does regain consciousness. He is able to answer questions appropriately and therefore he is not intubated at this time. Respiratory continues to be at bedside. I called cardiology who agreed with continued treatment of possible hyperkalemia and to have the lab assistant activated. Patient additionally given 2 A of bicarb, 10 units of insulin, amp of dextrose. Patient does not seem to have response with these medications. The lab assistant is ready at this time. Patient's labs to return and his potassium is not elevated. It is 4.3. Patient needs to have her pacemaker at this time. Called and spoke with Dr. Monsalve who is agreeable to admit the patient Undiagnosed new problem with uncertain prognosis? @ -Yes Drug Therapy requiring intensive monitoring for toxicity (Heparin, Nitro, Insulin, Cardizem)? @ -No Were any procedures done? @ -No Diagnosis/symptom? @ -acute syncope, Acute bradycardia, Third-degree heart block, sinus pause, esrd on pd Acute, or Chronic, or Acute on Chronic? @ -Acute (esrd - chronic) Uncomplicated (without systemic symptoms) or Complicated (systemic symptoms)? @ -Complicated Side effects of treatment? @ -No Exacerbation, Progression, or Severe Exacerbation? @ -No Poses a threat to life or bodily function? How? (Chest pain, USA, VA, pneumonia, PE, COPD, DKA, ARF, appy, cholecystitis, CVA, Diverticulitis, Homicidal, Suicidal, threat to staff... and all critical care pts) @ -Yes - Lab Data Result diagrams: 08/25/22 10:11 08/25/22 10:11 Lab Results 08/17/22 08/17/22 08/17/22 Range/Units 14:17 14:17 14:17 WBC 10.6 (3.8-10.6) k/uL RBC 3.14 L (4.30-5.90) m/uL Hgb 10.0 L (13.0-17.5) gm/dL Hct 32.6 L (39.0-53.0) % MCV 103.8 H D (80.0-100.0) fL MCH 32.0 (25.0-35.0) pg MCHC 30.8 L (31.0-37.0) g/dL RDW 16.6 H (11.5-15.5) % Plt Count 444 D (150-450) k/uL MPV 10.7 Neutrophils % (Manual) 80 % Band Neuts % (Manual) 1 % Lymphocytes % (Manual) 10 % Monocytes % (Manual) 5 % Eosinophils % (Manual) 2 % Basophils % (Manual) 2 % Neutrophils # (Manual) 8.50 H (1.3-7.7) k/uL Lymphocytes # (Manual) 1.06 (1.0-4.8) k/uL Monocytes # (Manual) 0.53 (0-1.0) k/uL Eosinophils # (Manual) 0.21 (0-0.7) k/uL Basophils # (Manual) 0.21 H (0-0.2) k/uL Nucleated RBCs 0 (0-0) /100 WBC Manual Slide Review Performed Polychromasia Present Hypochromasia Slight Anisocytosis Slight Macrocytosis Moderate PT 9.5 (9.0-12.0) sec INR 0.9 (<1.2) APTT 22.3 (22.0-30.0) sec Sodium 134 L (137-145) mmol/L Potassium 4.3 (3.5-5.1) mmol/L Chloride 97 L (98-107) mmol/L Carbon Dioxide 29 (22-30) mmol/L Anion Gap 8 mmol/L BUN 84 H (9-20) mg/dL Creatinine 5.24 H (0.66-1.25) mg/dL Est GFR (CKD-EPI)AfAm 11 (>60 ml/min/1.73 sqM) Est GFR (CKD-EPI)NonAf 9 (>60 ml/min/1.73 sqM) Glucose 89 (74-99) mg/dL POC Glucose (mg/dL) (70-110) mg/dL POC Glu [employer] Cleaning Supervisor ID Calcium 9.8 (8.4-10.2) mg/dL Phosphorus 3.7 (2.5-4.5) mg/dL Magnesium 2.0 (1.6-2.3) mg/dL Total Bilirubin 0.3 (0.2-1.3) mg/dL AST 17 (17-59) U/L ALT 10 (4-49) U/L Alkaline Phosphatase 46 (38-126) U/L Troponin I (0.000-0.034) ng/mL Total Protein 5.2 L (6.3-8.2) g/dL Albumin 3.0 L (3.5-5.0) g/dL TSH 0.766 (0.465-4.680) mIU/L 08/17/22 08/17/22 Range/Units 14:17 14:24 WBC (3.8-10.6) k/uL RBC (4.30-5.90) m/uL Hgb (13.0-17.5) gm/dL Hct (39.0-53.0) % MCV (80.0-100.0) fL MCH (25.0-35.0) pg MCHC (31.0-37.0) g/dL RDW (11.5-15.5) % Plt Count (150-450) k/uL MPV Neutrophils % (Manual) % Band Neuts % (Manual) % Lymphocytes % (Manual) % Monocytes % (Manual) % Eosinophils % (Manual) % Basophils % (Manual) % Neutrophils # (Manual) (1.3-7.7) k/uL Lymphocytes # (Manual) (1.0-4.8) k/uL Monocytes # (Manual) (0-1.0) k/uL Eosinophils # (Manual) (0-0.7) k/uL Basophils # (Manual) (0-0.2) k/uL Nucleated RBCs (0-0) /100 WBC Manual Slide Review Polychromasia Hypochromasia Anisocytosis Macrocytosis PT (9.0-12.0) sec INR (<1.2) APTT (22.0-30.0) sec Sodium (137-145) mmol/L Potassium (3.5-5.1) mmol/L Chloride (98-107) mmol/L Carbon Dioxide (22-30) mmol/L Anion Gap mmol/L BUN (9-20) mg/dL Creatinine (0.66-1.25) mg/dL Est GFR (CKD-EPI)AfAm (>60 ml/min/1.73 sqM) Est GFR (CKD-EPI)NonAf (>60 ml/min/1.73 sqM) Glucose (74-99) mg/dL POC Glucose (mg/dL) 97 (70-110) mg/dL POC Glu Boat Cleaning Supervisor ID Shola Rios Calcium (8.4-10.2) mg/dL Phosphorus (2.5-4.5) mg/dL Magnesium (1.6-2.3) mg/dL Total Bilirubin (0.2-1.3) mg/dL AST (17-59) U/L ALT (4-49) U/L Alkaline Phosphatase (38-126) U/L Troponin I 0.020 (0.000-0.034) ng/mL Total Protein (6.3-8.2) g/dL Albumin (3.5-5.0) g/dL TSH (0.465-4.680) mIU/L Critical Care Time Critical Care Time: Yes Critical Care Time: 38 minutes Disposition Clinical Impression: Syncope, Third degree AV block Disposition: ADMITTED IP TO THIS [facility] Condition: Serious Is patient prescribed a controlled substance at d/c from ED?: No Time of Disposition: 15:10 Decision to Admit Reason: Admit from EC Decision Date: 08/17/22 Decision Time: 15:10
[2022-08-17 14:54] LABS: INR 0.9 (<1.2); Partial Thromboplastin Time 22.3 sec (22.0-30.0); Prothrombin Time 9.5 sec (9.0-12.0)
[2022-08-17] MEDS ORDERED: LIDOCAINE 1% INJ 10MG/ML (20 ML MDV) ONE ×2 (15:02→20:21)
[2022-08-17] MEDS ORDERED: IV FLUID CONTINUATION 800 ML IV ONE (15:05)
[2022-08-17] MEDS ORDERED: NALOXONE 0.4 MG/ML 1 ML VIAL IV PRN (15:10)
[2022-08-17 15:14] LABS: Anisocytosis Slight; HCT 32.6 % (39.0-53.0); Hypochromasia Slight; MCHC 30.8 g/dL (31.0-37.0); Macrocytosis Moderate; Mean Platelet Volume 10.7; RBC 3.14 m/uL (4.30-5.90); RDW 16.6 % (11.5-15.5); WBC 10.6 k/uL (3.8-10.6)
[2022-08-17] MEDS ORDERED: LIDOCAINE 1% INJ 10MG/ML (30 ML VIAL-PF) SQ ONE (15:17)
[2022-08-17] MEDS ORDERED: DOPamine DRIP 800 MG in DEXTROSE/WATER 1 250ML.BAG IV ONE (15:18)
[2022-08-17] MEDS ORDERED: ACETAMINOPHEN TAB 325 MG TAB PO PRN (15:22)
[2022-08-17 15:41] LABS: MCV 103.8 fL (80.0-100.0); Platelet Count 444 k/uL (150-450)
--- NOTE | 2022-08-17 16:24 | P.PN ---
Subjective Progress Note Date: 08/17/22 Patient is a 86-year-old male with history of ESRD on paratonia on dialysis, recently started on intermittent hemodialysis, chronic diastolic failure hypertension, gout presented after a syncopal episode. Patient reportedly was treated at an outside facility for infection, and was recently discharged to a rehab facility. He apparently made it home out of rehab. Originally, he was getting peritoneotomy dialysis, but had difficulty with extracting all the fluid, and was getting intermittent hemodialysis. More recently he had peritoneal dialysis yesterday, and reportedly it went well. However, this morning he did not have any of his medications, but did have an episode of syncope. He claims that he was out for 2-3 minutes. On arrival of EMS, patient was in complete heart block. He was brought to the emergency for further evaluation. He denies any recent chest pain, shortness of breath, abdominal pain, nausea, vomiting, diarrhea, constipation. He makes very minimal urine. Denies any urinary complaints In the ER, patient was bradycardic up to 25, respiratory rate 18, saturating at 96% on room air, temperature 96.6, no blood pressure recorded in the chart. EKG shows third-degree AV block. Chest x-ray shows bilateral vascular congestion. On further discussion with ER attending, patient was given a cocktail for hyperkalemia after being approved by cardiology. During that time, Patient had a long pause, and CPR was initiated. Patient however woke up within 20 seconds, and was not intubated. He did receive one time epinephrine. Patient was taken directly to laboratory clerk for temporary pacemaker. Patient to be admitted to medical ICU. Lab work at the time of admission showed WBC 10.6, hemoglobin 10, MCV 103, platelet 444 sodium of 134, chloride 97, creatinine 5.24, magnesium 2.0, potassium 4.3, TSH 0.766. Pertinent positives and negatives as discussed in HPI, a complete review of systems was performed and all other systems are negative. Patient seen and examined at bedside. Vital signs reviewed General: nontoxic, no distress, appears at stated age Derm: warm, dry, PD site and chest wall catheter site has a dressing, appears clean, dry, intact, bilateral heel wounds covered in dressing Head: atraumatic, normocephalic, symmetric Eyes: EOMI, no lid lag, anicteric sclera, pupils equal round reactive to light ENT: Nose and ears atraumatic Neck: No thyromegaly, supple Mouth: no lip lesion, mucus membranes moist Cardiovascular: S1S2 reg, no murmur, no edema Lungs: clear to auscultation bilateral, no rhonchi, no rales, no wheeze, no accessory muscle use, supplemental oxygen Abdominal: soft, nontender to palpation, no guarding, no appreciable organomegaly Ext: no gross muscle atrophy, muscle strength muscle strength 5 out of 5 in all 4 extremities, no contractures Neuro: CN II-XII grossly intact Psych: Alert, oriented, appropriate affect Assessment/Plan: Active: Symptomatic bradycardia Third-degree AV block Syncope and collapse Cardiac arrest requiring CPR ESRD on intermittent hemodialysis as well as peritoneotomy dialysis Mild hyponatremia Bilateral heel wounds present on admission -EKG personally interpreted, shows third-degree AV block -Chest x-ray personally interpreted shows pulmonary vascular congestion -Cardiology consulted, pending temporary pacemaker placement -Will likely need permanent pacemaker -Hold beta blockers and calcium channel blockers -TSH 0.766, within normal limits, potassium 4.3, magnesium 2.0 -Echocardiogram ordered -Nephrology consult ordered -Patient does have an access for hemodialysis -Continue monitor BMP for electrolytes -Wound care consulted Chronic: Diastolic heart failure Hypertension Chronic microcytic anemia Thrombocytosis The patient is admitted with an anticipated greater than 2 midnight stay as inpatient status for evaluation of third-degree AV block. Surrogate decision-maker: spouse CODE STATUS: Full code DVT prophylaxis: Subcu heparin Anticipated discharge date: Pending clinical course Anticipated discharge place: Pending clinical course A total of 65 minutes was spent on the care of this complex patient more than 50% of the time was spent in counseling and care coordination. Objective - Vital Signs Vital signs: Vital Signs Temp 96.6 F L 08/17/22 14:09 Pulse 25 L 08/17/22 14:09 Resp 18 08/17/22 14:09 BP Pulse Ox 96 08/17/22 14:09 FiO2 Intake & Output 08/16/22 08/17/22 08/17/22 18:59 06:59 18:59 Intake Total 310 Balance 310 Weight 72.575 kg Intake: IV 310 - Labs CBC & Chem 7: 08/17/22 14:17 08/17/22 14:17 Labs: Abnormal Lab Results - Last 24 Hours (Table) 08/17/22 08/17/22 Range/Units 14:17 14:17 RBC 3.14 L (4.30-5.90) m/uL Hgb 10.0 L (13.0-17.5) gm/dL Hct 32.6 L (39.0-53.0) % MCV 103.8 H D (80.0-100.0) fL MCHC 30.8 L (31.0-37.0) g/dL RDW 16.6 H (11.5-15.5) % Sodium 134 L (137-145) mmol/L Chloride 97 L (98-107) mmol/L BUN 84 H (9-20) mg/dL Creatinine 5.24 H (0.66-1.25) mg/dL Total Protein 5.2 L (6.3-8.2) g/dL Albumin 3.0 L (3.5-5.0) g/dL
[2022-08-17] MEDS: CALCIUM CARBONATE 500 MG CHEWABLE PO SCH ×2 (16:36→22:26)
[2022-08-17] MEDS: ACETAMINOPHEN TAB 325 MG TAB PO PRN (16:36)
--- NOTE | 2022-08-17 16:44 | P.HPIM ---
History of Present Illness H&P Date: 08/17/22 Patient is a 86-year-old male with history of ESRD on paratonia on dialysis, recently started on intermittent hemodialysis, chronic diastolic failure hypertension, gout presented after a syncopal episode. Patient reportedly was treated at an outside facility for infection, and was recently discharged to a rehab facility. He apparently made it home out of rehab. Originally, he was getting peritoneotomy dialysis, but had difficulty with extracting all the fluid, and was getting intermittent hemodialysis. More recently he had peritoneal dialysis yesterday, and reportedly it went well. However, this morning he did not have any of his medications, but did have an episode of syncope. He claims that he was out for 2-3 minutes. On arrival of EMS, patient was in complete heart block. He was brought to the emergency for further evaluation. He denies any recent chest pain, shortness of breath, abdominal pain, nausea, vomiting, diarrhea, constipation. He makes very minimal urine. Denies any urinary complaints In the ER, patient was bradycardic up to 25, respiratory rate 18, saturating at 96% on room air, temperature 96.6, no blood pressure recorded in the chart. EKG shows third-degree AV block. Chest x-ray shows bilateral vascular congestion. On further discussion with ER attending, patient was given a cocktail for hyperkalemia after being approved by cardiology. During that time, Patient had a long pause, and CPR was initiated. Patient however woke up within 20 seconds, and was not intubated. He did receive one time epinephrine. Patient was taken directly to laboratory courier for temporary pacemaker. Patient to be admitted to medical ICU. Lab work at the time of admission showed WBC 10.6, hemoglobin 10, MCV 103, platelet 444 sodium of 134, chloride 97, creatinine 5.24, magnesium 2.0, potassium 4.3, TSH 0.766. Pertinent positives and negatives as discussed in HPI, a complete review of systems was performed and all other systems are negative. Patient seen and examined at bedside. Vital signs reviewed General: nontoxic, no distress, appears at stated age Derm: warm, dry, PD site and chest wall catheter site has a dressing, appears clean, dry, intact, bilateral heel wounds covered in dressing Head: atraumatic, normocephalic, symmetric Eyes: EOMI, no lid lag, anicteric sclera, pupils equal round reactive to light ENT: Nose and ears atraumatic Neck: No thyromegaly, supple Mouth: no lip lesion, mucus membranes moist Cardiovascular: S1S2 reg, no murmur, no edema Lungs: clear to auscultation bilateral, no rhonchi, no rales, no wheeze, no a ccessory muscle use, supplemental oxygen Abdominal: soft, nontender to palpation, no guarding, no appreciable organomegaly Ext: no gross muscle atrophy, muscle strength muscle strength 5 out of 5 in all 4 extremities, no contractures Neuro: CN II-XII grossly intact Psych: Alert, oriented, appropriate affect Assessment/Plan: Active: Symptomatic bradycardia Third-degree AV block Syncope and collapse Cardiac arrest requiring CPR ESRD on intermittent hemodialysis as well as peritoneotomy dialysis Mild hyponatremia Bilateral heel wounds present on admission -EKG personally interpreted, shows third-degree AV block -Chest x-ray personally interpreted shows pulmonary vascular congestion -Cardiology consulted, pending temporary pacemaker placement -Will likely need permanent pacemaker -Hold beta blockers and calcium channel blockers -TSH 0.766, within normal limits, potassium 4.3, magnesium 2.0 -Echocardiogram ordered -Nephrology consult ordered -Patient does have an access for hemodialysis -Continue monitor BMP for electrolytes -Wound care consulted Chronic: Diastolic heart failure Hypertension Chronic microcytic anemia Thrombocytosis The patient is admitted with an anticipated greater than 2 midnight stay as inpatient status for evaluation of third-degree AV block. Surrogate decision-maker: spouse CODE STATUS: Full code DVT prophylaxis: Subcu heparin Anticipated discharge date: Pending clinical course Anticipated discharge place: Pending clinical course A total of 65 minutes was spent on the care of this complex patient more than 50% of the time was spent in counseling and care coordination. Past Medical History Past Medical History: Heart Failure, Dialysis, Hypertension, Prostate Disorder, Renal Disease Additional Past Medical History / Comment(s): CURRENTLY DOING HEMODIALYSIS @ [facility] ([facility]). Thrombocytemia/elevated platelets. CKD stage IV. Anemia. BPH. 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 R hand index finger injury/partial amp. Colonoscopy. Past Anesthesia/Blood Transfusion Reactions: No Reported Reaction Past Psychological History: No Psychological Hx Reported Smoking Status: Never smoker Past Alcohol Use History: Rare Past Drug Use History: None Reported - Past Family History Father Family Medical History: Cancer, Hypertension, Renal Disease Additional Family Medical History / Comment(s): Kidney Cancer Mother Family Medical History: No Reported History Additional Family Medical History / Comment(s): Mother was healthy Medications and Allergies Home Medications Medication Instructions Recorded Confirmed Type Tamsulosin HCl [Flomax] 0.4 mg PO BID 05/24/14 08/17/22 History Anagrelide HCl [Agrylin] 1 mg PO TID 11/08/20 08/17/22 History NIFEdipine XL [Procardia XL] 30 mg PO BID 01/26/21 08/17/22 History Vit B Complx C/Folic Acid/Zinc 1 tab PO DAILY 03/19/21 08/17/22 History [Renaplex Tablet] Acetaminophen Tab [Tylenol] 650 mg PO Q4H PRN 08/17/22 08/17/22 History Calcium Carbonate [Tums] 1,000 mg PO TID 08/17/22 08/17/22 History Furosemide [Lasix] 80 mg PO BID 08/17/22 08/17/22 History Pantoprazole Sodium [Protonix] 40 mg PO DAILY 08/17/22 08/17/22 History allopurinoL [Zyloprim] 100 mg PO DAILY 08/17/22 08/17/22 History calcitrioL [Calcitriol] 0.25 mcg PO MOTUWETHFR 08/17/22 08/17/22 History hydrALAZINE HCL [Apresoline] 50 mg PO BID 08/17/22 08/17/22 History Allergies Allergy/AdvReac Type Severity Reaction Status Date / Time No Known Allergies Allergy Verified 06/27/22 10:23 Physical Exam Vitals: Vital Signs Temp Pulse Resp Pulse Ox 08/17/22 14:09 96.6 F L 25 L 18 96 Intake and Output 08/17/22 08/17/22 08/17/22 06:59 14:59 22:59 Intake Total 310 Balance 310 Intake: IV 310 Other: Weight 72.575 kg Results CBC & Chem 7: 08/17/22 14:17 08/17/22 14:17 Labs: Abnormal Lab Results - Last 24 Hours (Table) 08/17/22 08/17/22 Range/Units 14:17 14:17 RBC 3.14 L (4.30-5.90) m/uL Hgb 10.0 L (13.0-17.5) gm/dL Hct 32.6 L (39.0-53.0) % MCV 103.8 H D (80.0-100.0) fL MCHC 30.8 L (31.0-37.0) g/dL RDW 16.6 H (11.5-15.5) % Sodium 134 L (137-145) mmol/L Chloride 97 L (98-107) mmol/L BUN 84 H (9-20) mg/dL Creatinine 5.24 H (0.66-1.25) mg/dL Total Protein 5.2 L (6.3-8.2) g/dL Albumin 3.0 L (3.5-5.0) g/dL
[2022-08-17 17:18] LABS: Band Neutrophils % 1 %; Basophils # (M) 0.21 k/uL (0-0.2); Eosinophils # (M) 0.21 k/uL (0-0.7); Lymphocytes # (M) 1.06 k/uL (1.0-4.8); Monocytes # (M) 0.53 k/uL (0-1.0); Neutrophils % (M) 80 %; Nucleated Red Blood Cells 0 /100 WBC (0-0); Polychromasia Present; Total Cells Counted 100
[2022-08-17 18:11] LABS: Calcium 10.2 mg/dL (8.4-10.2); Potassium 4.3 mmol/L (3.5-5.1); Total Bilirubin 0.3 mg/dL (0.2-1.3); Total Protein 5.1 g/dL (6.3-8.2)
[2022-08-17] MEDS: DOPamine DRIP 800 MG in DEXTROSE/WATER 1 250ML.BAG IV SCH (18:48)
[2022-08-17] MEDS ORDERED: IV FLUID CONTINUATION 1,000 ML IV ONE (19:15)
[2022-08-17] MEDS ORDERED: IOPAMIDOL-370 100ML BTL INJ ONE (20:01)
[2022-08-17] MEDS ORDERED: LIDOCAINE 1% INJ 10MG/ML (20 ML MDV) SQ ONE (20:23)
--- NOTE | 2022-08-17 21:21 | P.PCN ---
Description of Procedure: CARDIOLOGY PROCEDURE NOTE Director Card: Dr. Bran Best Procedure performed: Insertion pacemaker lead with externalized generator Site: Right subclavian Indications: Sick Sinus Syndrome, 3rd degree heart block HPI: Patient presented with syncope and had 3rd degree heart block. He had temporary permanent pacemaker placed however became dislodged with patient having asystole and needing transcutaneous pacing. Additionally there is concern of possible LE infection with recent infections with patient on dialysis. Therefore recommended to place a permanent pacemaker lead which is externalized. Complications: None Blood Loss: Minimal Description of Procedure: After the risks, benefits, and alternatives of the above-mentioned procedure was explained in detail with the patient, informed consent was obtained. The patient was taken to the cardiac catheterization suite where the right subclavian area was sterily prepped and draped in the usual fashion. One percent lidocaine was used to anesthetize the right subclavian area. Twenty milliliters of Isoview 370 contrast was injected into the right antecubital vein to allow for direct visualization of the right subclavian vein under fluoroscopy. A thin walled micro puncuture needle was used to cannulate the right subclavian vein under ultrasound. A guide-wire was inserted through the needle into the vascular lumen under fluoroscopic guidance. The needle was removed. A venous sheath and dilator were advanced over the guidewire into the vascular lumen under fluoroscopic guidance. The dilator and guidewire were then removed. A right ventricular bipolar lead was inserted into the sheath and advanced under fluoroscopic guidance into the right ventricle under fluoroscopic guidance. Adequate sensing and pacing thresholds were achieved and the lead was screwed into place in the RV apex. The RV lead had 10mV sensing and lost pacing at 1.0 mA. The sheath was then torn away. The lead collar was advanced and anchored into place onto the skin utilizing #0 silk suture. A sterile antibiotic collar was placed and a 4x4 dressing was applied and the patient was transferred to the post catheterization holding area in stable and satisfactory condition. The patient tolerated the procedure well. Impressions: 1. Successful implantation of an externalized permanent pacemaker lead in the right pectoral site. Plan: 1. Routine post procedure care will be instituted 2. Continue externalized pacing and may change to a pacemaker generator if any active infection or prolonged antibiotics required. If no concern of active infection, consider changing to permanent pacemaker.
[2022-08-17 21:39] LABS: Glucose,Whole Blood 124 mg/dL (70-110)
--- NOTE | 2022-08-17 21:52 | XR ---
EXAMINATION TYPE: XR chest 1V portable DATE OF EXAM: 08/17/2022 COMPARISON: For 823 HISTORY: Lead placement check TECHNIQUE: Single frontal view of the chest is obtained. FINDINGS: Left-sided dialysis catheter seen with the tip overlying the SVC. There appears to be sing le lead overlying the lower heart border likely within the right ventricle. Interstitial pattern with bilateral consolidation and small effusion noted. No sizable pneumothorax. Heart is enlarged and the re is atherosclerotic change aorta. IMPRESSION: 1. There appears to be a right-sided cardiac leads likely with the tip overlying the right ventricle and no sizable pneumothorax. 2. Correlate for mild CHF
[2022-08-17] MEDS: hydrALAZINE HCL 50 MG TAB PO SCH (22:26)
[2022-08-17] MEDS: TAMSULOSIN 0.4 MG CAP.ER.24H PO SCH (22:26)
[2022-08-17] MEDS: ANAGRELIDE HCL 1 MG PO SCH (22:27)
[2022-08-17] MEDS: LIDOCAINE 5% PATCH TOPICAL SCH (23:02)
--- NOTE | 2022-08-18 00:17 | CC ---
CARDIAC CATHETERIZATION REPORT This is a temporary transvenous pacemaker. INDICATION: Complete heart block. PROCEDURE NOTE: After obtaining informed consent, a temporary transvenous pacemaker was performed via the right femoral vein. Initially, a 6-Latvian sheath was introduced into the right femoral vein and the pacemaker was floated into the right ventricle under fluoroscopic guidance. Adequate pacing and sensing thresholds were obtained, and the patient will be admitted to ICU. MMGABRIELLA / TERRANCEN: [id number] /
[2022-08-18] MEDS: HEPARIN SODIUM,PORCINE/PF 5,000 UNIT/0.5 ML SYRINGE SQ SCH ×3 (00:48→15:41)
--- NOTE | 2022-08-18 00:53 | CONS ---
CONSULTATION CHIEF COMPLAINT: Syncope. HISTORY OF PRESENT ILLNESS: This is an 86-year-old gentleman with history of prostatic hypertrophy, hypertension, end-stage renal disease on peritoneal dialysis, who presented to hospital with fatigue, tiredness, weakness and shortness of breath and was found to be in extreme bradycardia with heart rates in the 15s to 20s and had a syncopal event in the emergency room with an asystole. His current medications include Apresoline, Procardia, Lasix, the patient carries a history of PVCs. Due to his complete heart block, I advised the patient to undergo temporary transvenous pacemaker and I met him for the first time in the hot plate plywood press laborer where he is hypotensive, bradycardic, but is alert, awake and is conversing. PAST MEDICAL HISTORY: Significant for hypertension and PVCs. MEDICATIONS: Include an end-stage renal disease, on peritoneal dialysis. The patient is on Protonix, , Procardia, Lasix, Zyloprim, and calcitriol. ALLERGIES: There are no known drug allergies. FAMILY HISTORY: Negative for premature coronary artery disease. SOCIAL HISTORY: Negative for current smoking, EtOH abuse or drug abuse. REVIEW OF SYSTEMS: HEENT: Unremarkable. CARDIAC: As described above. RESPIRATORY: As described above. GI: Negative. GENITOURINARY: Negative. ALLERGY/IMMUNOLOGY: Negative. SKIN: Negative. MUSCULOSKELETAL: Significant for arthritis. PSYCHOSOCIAL: Negative. DERM: Negative. CONSTITUTIONAL: Negative. [employer] [place]: Significant for confusion and syncope. Rest of the system review is not relevant. PHYSICAL EXAMINATION: VITAL SIGNS: Afebrile. Heart rate is 40 beats per minute. Blood pressure is 86/62, respiratory rate is 18, O2 saturation is 96% on 2 L. NECK: There is no jugular venous distention. CHEST: Reveals diminished air entry at the bases without any crackles or rhonchi. HEART: Reveals first and second heart sounds and a systolic murmur at the apex. ABDOMEN: Soft. EXTREMITIES: Reveals mild edema. Peripheral pulses are felt. LABORATORY DATA: Labs show potassium of 4.3, BUN is 84, creatinine is 5.2. TSH is normal. DIAGNOSTIC DATA: EKG shows complete heart block with AV dissociation. Chest x-ray showed mild congestive heart failure. The patient had an echocardiogram in 2020 that revealed severe pulmonary hypertension with normal LV systolic function. ASSESSMENT: 1. Complete heart block. 2. Syncope secondary to complete heart block. 3. End-stage renal disease, on peritoneal dialysis. 4. Hypertension. PLAN: The patient will undergo emergent temporary transvenous pacemaker and if he does not resume his sinus rhythm, he will need permanent pacemaker. I am going to ask Dr. Best to do a pacemaker on him hopefully on Friday. CODY / LISSETT: [id number] /
--- NOTE | 2022-08-18 02:47 | CC ---
CARDIAC CATHETERIZATION REPORT INDICATIONS: Complete heart block. PROCEDURE NOTE: This is a patient who came in with syncope secondary to complete heart block. I placed a temporary transvenous pacemaker uneventfully. The patient while in the ICU has moved his leg and started intermittently losing his capture and developing syncope as a result. I brought him back to the greenhouse laborer where I repositioned the temporary pacemaker with excellent pacing and capture. Given the absolute need for pacing and a patient who seems to be moving quite a bit especially when he is sleeping, we are going to have a more permanent pacemaker on him. Given the fact that he has an infection in his foot and is at high risk for infection, he is going to have an externalized pacemaker. Dr. Best can hopefully do this later today. MMANA PAULAL / IJN: [id number] /
[2022-08-18 06:02] LABS: Albumin 2.5 g/dL (3.5-5.0); Calcium 10.1 mg/dL (8.4-10.2); Potassium 4.3 mmol/L (3.5-5.1); Total Bilirubin 0.3 mg/dL (0.2-1.3); Total Protein 4.5 g/dL (6.3-8.2)
[2022-08-18] MEDS: PANTOPRAZOLE 40 MG TABLET PO SCH (06:17)
[2022-08-18 06:25] LABS: Anisocytosis Slight; HCT 31.9 % (39.0-53.0); HGB 9.8 gm/dL (13.0-17.5); Hypochromasia Slight; MCHC 30.7 g/dL (31.0-37.0); MCV 104.2 fL (80.0-100.0); Macrocytosis Moderate; Mean Platelet Volume 10.4; Platelet Count 389 k/uL (150-450); RBC 3.06 m/uL (4.30-5.90); RDW 16.5 % (11.5-15.5); WBC 12.1 k/uL (3.8-10.6)
[2022-08-18 07:01] LABS: Band Neutrophils % 2 %; Eosinophils # (M) 0.12 k/uL (0-0.7); Large Platelets Present; Lymphocytes # (M) 0.61 k/uL (1.0-4.8); Metamyelocytes # (M) 0.12 k/uL (0); Metamyelocytes % 1 %; Monocytes # (M) 0.73 k/uL (0-1.0); Neutrophils % (M) 85 %; Nucleated Red Blood Cells 0 /100 WBC (0-0); Polychromasia Present; Total Cells Counted 100
[2022-08-18 07:02] LABS: Anisocytosis (M) Present; Poikilocytosis (M) Present
[2022-08-18] MEDS ORDERED: NON FORMULARY DRUG (Vit B Complx C/Folic Acid/Zinc [Renaplex Tablet] 1 EACH Tablet) PO SCH (09:00)
[2022-08-18] MEDS: hydrALAZINE HCL 50 MG TAB PO SCH ×2 (09:20→20:43)
[2022-08-18] MEDS: TAMSULOSIN 0.4 MG CAP.ER.24H PO SCH ×2 (09:20→20:43)
[2022-08-18] MEDS: CALCIUM CARBONATE 500 MG CHEWABLE PO SCH ×3 (09:21→20:42)
[2022-08-18] MEDS: allopurinoL 100 MG TAB PO SCH (09:21)
[2022-08-18] MEDS: LIDOCAINE 5% PATCH TOPICAL SCH (09:21)
--- NOTE | 2022-08-18 11:02 | P.PN ---
Subjective Progress Note Date: 08/18/22 Hospital Course: 86-year-old male with history of ESRD on paratonia on dialysis, recently started on intermittent hemodialysis, chronic diastolic failure hypertension, gout presented after a syncopal episode. In the ER, patient was bradycardic up to 25, respiratory rate 18, saturating at 96% on room air, temperature 96.6, no blood pressure recorded in the chart. EKG shows third-degree AV block. Chest x-ray shows bilateral vascular congestion. On further discussion with ER attending, patient was given a cocktail for hyperkalemia after being approved by cardiology. During that time, Patient had a long pause, and CPR was initiated. Patient however woke up within 20 seconds, and was not intubated. He did receive one time epinephrine. Patient was taken directly to flower shop laborer/designer for temporary pacemaker. Patient to be admitted to medical ICU. Lab work at the time of admission showed WBC 10.6, hemoglobin 10, MCV 103, platelet 444 sodium of 134, chloride 97, creatinine 5.24, magnesium 2.0, potassium 4.3, TSH 0.766. Patient is now status post insertion of pacemaker lead with externalized generator. Subjective: Patient seen and examined at bedside. No acute events overnight. He has some chest soreness from CPR, but denies any shortness of breath, abdominal pain, nausea, vomiting, diarrhea, constipation. He is pending dialysis. Pertinent positives and negatives as discussed above, a complete review of systems was performed and all other systems are negative. Vitals Signs Reviewed. General: nontoxic, no distress, appears at stated age Derm: warm, dry, PD site and chest wall catheter site has a dressing, appears clean, dry, intact, bilateral heel wounds covered in dressing , has pacemaker with external generator. Head: atraumatic, normocephalic, symmetric Eyes: EOMI, no lid lag, anicteric sclera, pupils equal round reactive to light ENT: Nose and ears atraumatic Neck: No thyromegaly, supple Mouth: no lip lesion, mucus membranes moist Cardiovascular: S1S2 reg, no murmur, no edema Lungs: clear to auscultation bilateral, no rhonchi, no rales, no wheeze, no accessory muscle use, supplemental oxygen Abdominal: soft, nontender to palpation, no guarding, no appreciable organomegaly Ext: no gross muscle atrophy, muscle strength muscle strength 5 out of 5 in all 4 extremities, no contractures Neuro: CN II-XII grossly intact Psych: Alert, oriented, appropriate affect Data Reviewed Today: Pertinent Labs: WBC 12.1, hemoglobin 9.8, platelet count 89, sodium 136, creatinine 6.03 Imaging: Chest x-ray independently interpreted, no significant opacity, pacemaker lead and dialysis catheter visualized, no pneumothorax Assessment and Plan: Patient is critically ill, currently in the medical ICU. Active: Third-degree AV block status post pacemaker with external generator Cardiac arrest requiring CPR ESRD on intermittent hemodialysis as well as peritoneotomy dialysis Mild hyponatremia Bilateral heel wounds present on admission -Cardiology following, currently patient has an external generator for pacemaker, planning to correct permanent pacemaker if clear of any infection, procedure note reviewed -Hold beta blockers and calcium channel blockers -TSH 0.766, within normal limits, potassium 4.3, magnesium 2.0 -Echocardiogram pending -Nephrology consulted -Patient does have an access for hemodialysis -Continue monitor BMP for electrolytes -Wound care consulted -ID consult to rule out any infection -Blood cultures ordered Resolved: Syncope and collapse Symptomatic bradycardia Chronic: Diastolic heart failure Hypertension Chronic microcytic anemia Thrombocytosis DVT ppx: Subcu heparin Code status: Full code Anticipated discharge place: Pending clinical course Anticipated discharge time: Pending clinical course Objective - Vital Signs Vital signs: Vital Signs Temp 97.5 F L 08/18/22 00:00 Pulse 59 L 08/18/22 10:00 Resp 17 08/18/22 10:00 BP 141/65 08/18/22 10:00 Pulse Ox 96 08/18/22 10:00 FiO2 Intake & Output 08/17/22 08/18/22 08/18/22 18:59 06:59 18:59 Intake Total 340 500 210 Balance 340 500 210 Weight 72.575 kg 76.2 kg Intake: IV 340 250 10 KVO 50 10 TVP 30 ceFAZolin 2 gm In Sodium 50 Chloride 0.9% 50 ml @ 100 mls/hr IVPB ONCE ONE Rx# :[id number] Oral 250 200 Other: Voiding Method Incontinent # Voids 0 - Labs CBC & Chem 7: 08/18/22 05:29 08/18/22 05:29 Labs: Abnormal Lab Results - Last 24 Hours (Table) 04/08/23 04/08/23 04/08/23 Range/Units 14:17 14:17 17:36 WBC (3.8-10.6) k/uL RBC 3.14 L (4.30-5.90) m/uL Hgb 10.0 L (13.0-17.5) gm/dL Hct 32.6 L (39.0-53.0) % MCV 103.8 H D (80.0-100.0) fL MCHC 30.8 L (31.0-37.0) g/dL RDW 16.6 H (11.5-15.5) % Neutrophils # (Manual) 8.50 H (1.3-7.7) k/uL Lymphocytes # (Manual) (1.0-4.8) k/uL Basophils # (Manual) 0.21 H (0-0.2) k/uL Metamyelocytes # (Man) (0) k/uL Sodium 134 L 136 L (137-145) mmol/L Chloride 97 L 96 L (98-107) mmol/L BUN 84 H 83 H (9-20) mg/dL Creatinine 5.24 H 5.51 H (0.66-1.25) mg/dL POC Glucose (mg/dL) (70-110) mg/dL Total Protein 5.2 L 5.1 L (6.3-8.2) g/dL Albumin 3.0 L 3.0 L (3.5-5.0) g/dL 08/17/22 08/18/22 08/18/22 Range/Units 21:37 05:29 05:29 WBC 12.1 H (3.8-10.6) k/uL RBC 3.06 L (4.30-5.90) m/uL Hgb 9.8 L (13.0-17.5) gm/dL Hct 31.9 L (39.0-53.0) % MCV 104.2 H (80.0-100.0) fL MCHC 30.7 L (31.0-37.0) g/dL RDW 16.5 H (11.5-15.5) % Neutrophils # (Manual) 10.50 H (1.3-7.7) k/uL Lymphocytes # (Manual) 0.61 L (1.0-4.8) k/uL Basophils # (Manual) (0-0.2) k/uL Metamyelocytes # (Man) 0.12 H (0) k/uL Sodium 136 L (137-145) mmol/L Chloride (98-107) mmol/L BUN 87 H (9-20) mg/dL Creatinine 6.03 H (0.66-1.25) mg/dL POC Glucose (mg/dL) 124 H (70-110) mg/dL Total Protein 4.5 L (6.3-8.2) g/dL Albumin 2.5 L (3.5-5.0) g/dL
--- NOTE | 2022-08-18 11:07 | P.NPCON ---
History of Present Illness - Reason for Consult end stage renal disease - Chief Complaint bradycardia - History of Present Illness This is a 86-year-old male, known to us with ESRD on peritoneal dialysis. He came in because of bradycardia and had a transvenous temporary pacer through the femoral which got dislodged therefore a subclavian route patient has been placed. He is currently stable. About 3-4 weeks ago he was not feeling well was hypotensive and therefore was admitted to the hospital at [facility] and was given 2 weeks of antibiotics. No clear-cut cause and details are not available. He was then discharged to rehab at [place]. He is dialysis was switched to a more with a permacath which did not function well therefore a week ago or so approximately a permacath was replaced at [facility]. This also was not functioning. He then came home and started doing PD and was doing fairly well. He uses about 12 L. Probably had a 1 L negative ultrafiltration yesterday. At home he became bradycardic and was brought to the emergency room Currently awake alert oriented comfortable. 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 Past Medical History Past Medical History: Heart Failure, Dialysis, Hypertension, Prostate Disorder, Renal Disease Additional Past Medical History / Comment(s): CURRENTLY DOING HEMODIALYSIS @ [facility] IN [place] ([facility]). Thrombocytemia/elevated platelets. CKD stage IV. An emia. BPH. 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 R hand index finger injury/partial amp. Colonoscopy. Past Anesthesia/Blood Transfusion Reactions: No Reported Reaction Past Psychological History: No Psychological Hx Reported Additional Psychological History / Comment(s): Pt resides with his spouse. He is independent. Smoking Status: Never smoker Past Alcohol Use History: Rare Additional Past Alcohol Use History / Comment(s): Just returned from a month long trip to [place]. Had occasional glass of wine on his trip but doesn't drink alcohol on a regular basis otherwise. Past Drug Use History: None Reported - Past Family History Father Family Medical History: Cancer, Hypertension, Renal Disease Additional Family Medical History / Comment(s): Kidney Cancer Mother Family Medical History: No Reported History Additional Family Medical History / Comment(s): Mother was healthy Medications and Allergies Home Medications Medication Instructions Recorded Confirmed Type Tamsulosin HCl [Flomax] 0.4 mg PO BID 05/24/14 08/17/22 History Anagrelide HCl [Agrylin] 1 mg PO TID 11/08/20 08/17/22 History NIFEdipine XL [Procardia XL] 30 mg PO BID 01/26/21 08/17/22 History Vit B Complx C/Folic Acid/Zinc 1 tab PO DAILY 03/19/21 08/17/22 History [Renaplex Tablet] Acetaminophen Tab [Tylenol] 650 mg PO Q4H PRN 08/17/22 08/17/22 History Calcium Carbonate [Tums] 1,000 mg PO TID 08/17/22 08/17/22 History Furosemide [Lasix] 80 mg PO BID 08/17/22 08/17/22 History Pantoprazole Sodium [Protonix] 40 mg PO DAILY 08/17/22 08/17/22 History allopurinoL [Zyloprim] 100 mg PO DAILY 08/17/22 08/17/22 History calcitrioL [Calcitriol] 0.25 mcg PO MOTUWETHFR 08/17/22 08/17/22 History hydrALAZINE HCL [Apresoline] 50 mg PO BID 08/17/22 08/17/22 History Allergies Allergy/AdvReac Type Severity Reaction Status Date / Time No Known Allergies Allergy Verified 06/27/22 10:23 Physical Exam Vitals: Vital Signs Temp Pulse Resp BP Pulse Ox 08/18/22 10:00 59 L 17 141/65 96 08/18/22 09:00 59 L 12 134/71 96 08/18/22 08:00 59 L 16 130/75 95 08/18/22 07:00 59 L 19 130/75 96 08/18/22 06:00 59 L 20 138/71 96 08/18/22 05:00 59 L 21 135/73 95 08/18/22 04:00 59 L 11 L 146/67 95 08/18/22 03:00 59 L 16 142/84 97 08/18/22 02:00 60 14 141/64 96 08/18/22 01:00 59 L 16 145/60 97 08/18/22 00:00 97.5 F L 59 L 16 163/66 97 08/17/22 23:00 59 L 16 153/81 93 L 08/17/22 22:16 60 14 143/70 93 L 08/17/22 22:00 97.5 F L 59 L 14 161/63 92 L 08/17/22 16:00 80 126/109 08/17/22 15:00 80 18 157/78 08/17/22 14:54 80 18 132/116 100 08/17/22 14:09 96.6 F L 25 L 18 96 Intake and Output 08/17/22 08/18/22 08/18/22 22:59 06:59 14:59 Intake Total 500 340 210 Balance 500 340 210 Intake: IV 500 90 10 KVO 10 40 10 TVP 30 ceFAZolin 2 gm In Sodium 50 Chloride 0.9% 50 ml @ 100 mls/hr IVPB ONCE ONE Rx# :[id number] Oral 250 200 Other: Voiding Method Incontinent # Voids 0 Weight 72.575 kg 76.2 kg On examination is awake alert oriented comfortable HEENT exam no JVP neck is supple no facial asymmetry Lungs are clear to auscultation good air entry bilaterally Heart sounds unremarkable. Abdomen soft nontender PD catheter exit site is clean Extreme exam was no edema His heels are bandaged. Neurologically awake alert oriented moves all his extremities Results - Lab Results Most recent lab results Calcium 10.1 mg/dL (8.4-10.2) 08/18/22 05:29 Phosphorus 3.8 mg/dL (2.5-4.5) 08/17/22 17:36 Magnesium 2.0 mg/dL (1.6-2.3) 08/17/22 14:17 08/18/22 05:29 08/18/22 05:29 Assessment and Plan Assessment: Impression 1. ESRD on peritoneal dialysis. 2. Recent admission to Hospital at [facility] about 4 weeks ago for hypotension and changes in her status treated with antibiotics and discharged to alf and rehab. 3. Switch over to hemodialysis in the alf with a malfunctioning permacath on the right which was changed week ago and still was not functioning as per the son. 4. Switch over back to retinal dialysis at home a week ago and has been working well 5. Admitted with severe bradycardia with third-degree heart block. Has a transvenous pacemaker initially through femoral but it got dislodged therefore have it on the right side in his chest. 6. History of bilateral heel ulcers which have healed supposedly. Recommendation 1. Resume peritoneal dialysis will use 2 L bags 4 exchanges 1.5%. 2. Check iron saturation, 3. Start darbepoetin 40 g every week. Thank you for the consultation we'll continue to follow
--- NOTE | 2022-08-18 11:30 | P.PN ---
Subjective Progress Note Date: 08/18/22 Patient is seen today resting comfortably in bed in no significant acute distress. Patient remains ventricular paced on the monitor and is dependent on externalized permanent pacemaker. He denies any episodes of chest pain or increased shortness of breath. Infectious disease has also been consulted due to infected leg wound. Awaiting further recommendations to determine further permanent pacemaker placement. Patient is a peritoneal dialysis patient, at home during the evening he undergoes continuous peritoneal dialysis. However he has had an increase in fluid and has not been able to get it off with his peritoneal dialysis. Further recommendations from nephrology as to whether or not the patient will undergo hemodialysis. Objective - Vital Signs Vital signs: Vital Signs Temp 97.5 F L 08/18/22 00:00 Pulse 59 L 08/18/22 10:00 Resp 17 08/18/22 10:00 BP 141/65 08/18/22 10:00 Pulse Ox 96 08/18/22 10:00 FiO2 Intake & Output 08/17/22 08/18/22 08/18/22 18:59 06:59 18:59 Intake Total 340 500 210 Balance 340 500 210 Weight 72.575 kg 76.2 kg Intake: IV 340 250 10 KVO 50 10 TVP 30 ceFAZolin 2 gm In Sodium 50 Chloride 0.9% 50 ml @ 100 mls/hr IVPB ONCE ONE Rx# :[id number] Oral 250 200 Other: Voiding Method Incontinent # Voids 0 - Exam PHYSICAL EXAM: VITAL SIGNS: Reviewed. GENERAL: Well-developed in no acute distress. HEENT: Head is normocephalic. Pupils are equal, round. Sclerae anicteric. Mucous membranes of the mouth are moist. NECK: Supple. No JVD or thyromegaly RESPIRATORY: Respirations even and unlabored. Lungs diminished to auscultation bilaterally. CARDIO: V paced on the monitor, externalized permanent pacemaker present. S1 and S2 heard. No murmur or gallops. EXTREMITIES: Normal range of motion. No clubbing or cyanosis. Peripheral pulses intact. Negative for bilateral lower extremity edema NEURO: Orientated to person, time, mood is appropriate - Labs CBC & Chem 7: 08/18/22 05:29 08/18/22 05:29 Labs: Abnormal Lab Results - Last 24 Hours (Table) 08/17/22 08/17/22 08/17/22 Range/Units 14:17 14:17 17:36 WBC (3.8-10.6) k/uL RBC 3.14 L (4.30-5.90) m/uL Hgb 10.0 L (13.0-17.5) gm/dL Hct 32.6 L (39.0-53.0) % MCV 103.8 H D (80.0-100.0) fL MCHC 30.8 L (31.0-37.0) g/dL RDW 16.6 H (11.5-15.5) % Neutrophils # (Manual) 8.50 H (1.3-7.7) k/uL Lymphocytes # (Manual) (1.0-4.8) k/uL Basophils # (Manual) 0.21 H (0-0.2) k/uL Metamyelocytes # (Man) (0) k/uL Sodium 134 L 136 L (137-145) mmol/L Chloride 97 L 96 L (98-107) mmol/L BUN 84 H 83 H (9-20) mg/dL Creatinine 5.24 H 5.51 H (0.66-1.25) mg/dL POC Glucose (mg/dL) (70-110) mg/dL Total Protein 5.2 L 5.1 L (6.3-8.2) g/dL Albumin 3.0 L 3.0 L (3.5-5.0) g/dL 08/17/22 08/18/22 08/18/22 Range/Units 21:37 05:29 05:29 WBC 12.1 H (3.8-10.6) k/uL RBC 3.06 L (4.30-5.90) m/uL Hgb 9.8 L (13.0-17.5) gm/dL Hct 31.9 L (39.0-53.0) % MCV 104.2 H (80.0-100.0) fL MCHC 30.7 L (31.0-37.0) g/dL RDW 16.5 H (11.5-15.5) % Neutrophils # (Manual) 10.50 H (1.3-7.7) k/uL Lymphocytes # (Manual) 0.61 L (1.0-4.8) k/uL Basophils # (Manual) (0-0.2) k/uL Metamyelocytes # (Man) 0.12 H (0) k/uL Sodium 136 L (137-145) mmol/L Chloride (98-107) mmol/L BUN 87 H (9-20) mg/dL Creatinine 6.03 H (0.66-1.25) mg/dL POC Glucose (mg/dL) 124 H (70-110) mg/dL Total Protein 4.5 L (6.3-8.2) g/dL Albumin 2.5 L (3.5-5.0) g/dL Assessment and Plan Assessment: Complete heart block status post externalized permanent pacemaker placement Syncope secondary to complete heart block End-stage renal disease, on peritoneal dialysis Hypertension Plan: Patient may be transferred to [address] [place] [address] Continue to monitor with telemetry,s/p external permanent pacemaker Continue to follow with nephrology Continue to follow with infectious disease Continue all current cardiac medications Further recommendations based on clinical course The above impression and plan of care have been discussed and directed by the signing physician. Kae Stock, nurse practitioner, acting as scribe for signing physician.
[2022-08-18] MEDS: DIALYSIS (PERIT 1.5%) 2,000 ML 30 G/2,000 ML BAG INTRAPERIT SCH ×2 (12:41→18:37)
[2022-08-18] MEDS: ANAGRELIDE HCL 1 MG PO SCH ×3 (14:26→20:42)
[2022-08-18] MEDS: DARBEPOETIN ALFA 40 MCG/0.4 ML SYRINGE SQ SCH (15:38)
[2022-08-18] MEDS: DOPamine DRIP 800 MG in DEXTROSE/WATER 1 250ML.BAG IV SCH (18:46)
--- NOTE | 2022-08-18 21:31 | P.CONS ---
History of Present Illness - Reason for Consult Consult date: 08/18/22 Permanent pacemaker Requesting physician: Carmelo Badillo - Chief Complaint Lightheaded and weakness x one day - History of Present Illness Patient is 86-year male with a past medical history significant for hypertension end-stage renal disease on peritoneal dialysis the patient was brought into the ER yesterday afternoon after apparently the patient was complai bernabe of lightheadedness ended up having a syncopal episode without any injury or any fall patient was noticed to be in third-degree heart block patient has been brought into the ER was evaluated by cardiology and did have a temporary transvenous pacer placement and the patient has been admitted to the ICU patient apparently was recently admitted at [facility] and did have some sort of infection however the son was not clear the type of infection the patient had and the patient was not on an antibiotic patient was noticed to have deep tissue injury bilateral heel area with concern for possible source of infection infectious disease was consulted for clearance for placement of a p ermanent pacemaker, patient on presentation to the hospital was afebrile and no fever has been recorded subsequently patient did have a normal white count on presentation however the white count slightly up to 12.1 today with a left shift did have elevated BUN and creatinine you enzymes are normal patient did have a blood cultures obtained this morning which has been pending so far patient is breathing comfortably 2 L nasal cannula oxygen denies having any chest pain or shortness with occasional cough no nausea no vomiting no abdominal pain no diarrhea or any worsening pain to bilateral heel wound Review of Systems Positive point has been mentioned in the HPI rest of the systems are negative Past Medical History Past Medical History: Heart Failure, Dialysis, Hypertension, Prostate Disorder, Renal Disease Additional Past Medical History / Comment(s): CURRENTLY DOING HEMODIALYSIS @ [facility] ([facility]). Thrombocytemia/elevated platelets. CKD stage IV. Anemia. BPH. 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 R hand index finger injury/partial amp. Colonoscopy. Past Anesthesia/Blood Transfusion Reactions: No Reported Reaction Past Psychological History: No Psychological Hx Reported Additional Psychological History / Comment(s): Pt resides with his spouse. He is independent. Smoking Status: Never smoker Past Alcohol Use History: Rare Additional Past Alcohol Use History / Comment(s): Just returned from a month long trip to [place]. Had occasional glass of wine on his trip but doesn't drink alcohol on a regular basis otherwise. Past Drug Use History: None Reported - Past Family History Father Family Medical History: Cancer, Hypertension, Renal Disease Additional Family Medical History / Comment(s): Kidney Cancer Mother Family Medical History: No Reported History Additional Family Medical History / Comment(s): Mother was healthy Medications and Allergies Home Medications Medication Instructions Recorded Confirmed Type Tamsulosin HCl [Flomax] 0.4 mg PO BID 05/24/14 08/17/22 History Anagrelide HCl [Agrylin] 1 mg PO TID 11/08/20 08/17/22 History Vit B Complx C/Folic Acid/Zinc 1 tab PO DAILY 03/19/21 08/17/22 History [Renaplex Tablet] Acetaminophen Tab [Tylenol] 650 mg PO Q4H PRN 08/17/22 08/17/22 History Calcium Carbonate [Tums] 1,000 mg PO TID 08/17/22 08/17/22 History Pantoprazole Sodium [Protonix] 40 mg PO DAILY 08/17/22 08/17/22 History allopurinoL [Zyloprim] 100 mg PO DAILY 08/17/22 08/17/22 History calcitrioL [Calcitriol] 0.25 mcg PO MOTUWETHFR 08/17/22 08/17/22 History hydrALAZINE HCL [Apresoline] 50 mg PO BID 08/17/22 08/17/22 History Cephalexin [Keflex] 250 mg PO Q8HR #42 capsule 08/26/22 Rx Darbepoetin Abraham [Aranesp] 40 mcg SQ Q7D #30 each 08/27/22 Rx Lactulose [Cephulac] 30 gm PO BID #1000 ml 08/27/22 Rx Lidocaine 5% Patch [Lidoderm 5% 1 patch TOPICAL DAILY #20 patch 08/27/22 Rx Patch] amLODIPine [Norvasc] 5 mg PO DAILY #90 tab 08/27/22 Rx lisinopriL [Zestril] 5 mg PO DAILY #90 tab 08/27/22 Rx Allergies Allergy/AdvReac Type Severity Reaction Status Date / Time No Known Allergies Allergy Verified 06/27/22 10:23 Physical Exam Vitals: Vital Signs Temp Pulse Resp BP Pulse Ox 08/18/22 13:00 59 L 22 143/66 96 08/18/22 12:41 97.5 F L 59 L 20 136/60 96 08/18/22 12:00 59 L 20 125/78 97 08/18/22 11:00 59 L 17 124/63 95 08/18/22 10:00 59 L 17 141/65 96 08/18/22 09:00 59 L 12 134/71 96 08/18/22 08:00 59 L 16 130/75 95 08/18/22 07:00 59 L 19 130/75 96 08/18/22 06:00 59 L 20 138/71 96 08/18/22 05:00 59 L 21 135/73 95 08/18/22 04:00 59 L 11 L 146/67 95 08/18/22 03:00 59 L 16 142/84 97 08/18/22 02:00 60 14 141/64 96 08/18/22 01:00 59 L 16 145/60 97 08/18/22 00:00 97.5 F L 59 L 16 163/66 97 08/17/22 23:00 59 L 16 153/81 93 L 08/17/22 22:16 60 14 143/70 93 L 08/17/22 22:00 97.5 F L 59 L 14 161/63 92 L 08/17/22 16:00 80 126/109 08/17/22 15:00 80 18 157/78 08/17/22 14:54 80 18 132/116 100 Intake and Output 08/17/22 08/18/22 08/18/22 22:59 06:59 14:59 Intake Total 500 340 210 Balance 500 340 210 Intake: IV 500 90 10 KVO 10 40 10 TVP 30 ceFAZolin 2 gm In Sodium 50 Chloride 0.9% 50 ml @ 100 mls/hr IVPB ONCE ONE Rx# :[id number] Oral 250 200 Other: Voiding Method Incontinent # Voids 0 Weight 72.575 kg 76.2 kg GENERAL DESCRIPTION: Elderly male lying in bed, no distress. No tachypnea or accessory muscle of respiration use. HEENT: Shows Pallor , no scleral icterus. Oral mucous membrane is dry. No pharyngeal erythema or thrush NECK: Trachea central, no thyromegaly. LUNGS: Unlabored breathing. Clear to auscultation anteriorly. No wheeze or crackle. HEART: S1, S2, regular rate and rhythm. No loud murmur ABDOMEN: Soft, no tenderness , guarding or rigidity, no organomegaly EXTREMITIES: No edema of feet. Patient did have bilateral heel unstageable pressure ulcer but no cellulitis SKIN: Multiple skin bruises but no cellulitis NEUROLOGICAL: The patient is awake, alert, oriented x3, mood and affect normal. Results CBC & Chem 7: 08/25/22 10:11 08/27/22 05:41 Labs: Abnormal Lab Results - Last 24 Hours (Table) 08/17/22 08/17/22 08/17/22 Range/Units 14:17 14:17 17:36 WBC (3.8-10.6) k/uL RBC 3.14 L (4.30-5.90) m/uL Hgb 10.0 L (13.0-17.5) gm/dL Hct 32.6 L (39.0-53.0) % MCV 103.8 H D (80.0-100.0) fL MCHC 30.8 L (31.0-37.0) g/dL RDW 16.6 H (11.5-15.5) % Neutrophils # (Manual) 8.50 H (1.3-7.7) k/uL Lymphocytes # (Manual) (1.0-4.8) k/uL Basophils # (Manual) 0.21 H (0-0.2) k/uL Metamyelocytes # (Man) (0) k/uL Sodium 134 L 136 L (137-145) mmol/L Chloride 97 L 96 L (98-107) mmol/L BUN 84 H 83 H (9-20) mg/dL Creatinine 5.24 H 5.51 H (0.66-1.25) mg/dL POC Glucose (mg/dL) (70-110) mg/dL Total Protein 5.2 L 5.1 L (6.3-8.2) g/dL Albumin 3.0 L 3.0 L (3.5-5.0) g/dL 08/17/22 08/18/22 08/18/22 Range/Units 21:37 05:29 05:29 WBC 12.1 H (3.8-10.6) k/uL RBC 3.06 L (4.30-5.90) m/uL Hgb 9.8 L (13.0-17.5) gm/dL Hct 31.9 L (39.0-53.0) % MCV 104.2 H (80.0-100.0) fL MCHC 30.7 L (31.0-37.0) g/dL RDW 16.5 H (11.5-15.5) % Neutrophils # (Manual) 10.50 H (1.3-7.7) k/uL Lymphocytes # (Manual) 0.61 L (1.0-4.8) k/uL Basophils # (Manual) (0-0.2) k/uL Metamyelocytes # (Man) 0.12 H (0) k/uL Sodium 136 L (137-145) mmol/L Chloride (98-107) mmol/L BUN 87 H (9-20) mg/dL Creatinine 6.03 H (0.66-1.25) mg/dL POC Glucose (mg/dL) 124 H (70-110) mg/dL Total Protein 4.5 L (6.3-8.2) g/dL Albumin 2.5 L (3.5-5.0) g/dL Assessment and Plan (1) Unstageable pressure ulcer of left heel Status: Acute Code(s): L89.620 - PRESSURE ULCER OF LEFT HEEL, UNSTAGEABLE SNOMED Code(s): 03627118449607 (2) Unstageable pressure ulcer of right heel Status: Acute Code(s): L89.610 - PRESSURE ULCER OF RIGHT HEEL, UNSTAGEABLE SNOMED Code(s): 23942756177682 Plan: 1patient presented to hospital with syncopal episode and has been noticed to be in third-degree heart block and the patient did require temporary transvenous pacer placement and cardiology planning for permanent pacemaker placement patient noticed to have a deep tissue injury to bilateral heel area and concern for possible high risk for infection hence infectious disease was consulted patient is currently not running any fever did have mild elevated white count patient did have bilateral heel unstageable pressure ulcer however there is no evidence of any cellulitis fluctuation or any drainage, patient did have a multiple bruises to the skin keeping in mind his multiple comorbidities and overall clinical condition patient will be high risk for infection if the permanent pacemaker can be delayed to make sure the patient not bacteremic that would be ideal, hence we will wait for the blood cultures to be finalized at the same time we will check inflammatory markers and will also send peritoneal fluid for cell count and culture 2-for now local care to bilateral heel with heel protectors to keep the area of the pressure keep it dry and there is no need for any systemic antibiotics or local cream to bilateral heel area We will follow on clinical condition and cultures to further adjust medication if needed Thank you for this consultation we will follow the patient along with you Time with Patient: Greater than 30
[2022-08-18 22:06] LABS: % Iron Saturation 23.9 (15.00-50.00)
[2022-08-19] MEDS: DIALYSIS (PERIT 1.5%) 2,000 ML 30 G/2,000 ML BAG INTRAPERIT SCH ×4 (00:13→17:22)
[2022-08-19] MEDS: HEPARIN SODIUM,PORCINE/PF 5,000 UNIT/0.5 ML SYRINGE SQ SCH ×3 (00:23→15:50)
[2022-08-19 06:00] LABS: Anisocytosis Slight; HCT 29.9 % (39.0-53.0); HGB 9.3 gm/dL (13.0-17.5); MCH 32.1 pg (25.0-35.0); MCV 103.7 fL (80.0-100.0); Macrocytosis Moderate; Mean Platelet Volume 10.4; Platelet Count 373 k/uL (150-450); RBC 2.88 m/uL (4.30-5.90); RDW 16.6 % (11.5-15.5); WBC 8.5 k/uL (3.8-10.6)
[2022-08-19 06:09] LABS: Calcium 9.5 mg/dL (8.4-10.2); Potassium 4.5 mmol/L (3.5-5.1)
[2022-08-19 06:38] LABS: C Reactive Protein 14.2 mg/dL (<1.0)
[2022-08-19] MEDS: PANTOPRAZOLE 40 MG TABLET PO SCH (06:58)
[2022-08-19 07:48] LABS: Eosinophils # (M) 0.09 k/uL (0-0.7); Lymphocytes # (M) 0.17 k/uL (1.0-4.8); Metamyelocytes # (M) 0.17 k/uL (0); Metamyelocytes % 2 %; Myelocytes # (M) 0.09 k/uL (0); Myelocytes % 1 %; Neutrophils % (M) 87 %; Nucleated Red Blood Cells 0 /100 WBC (0-0); Total Cells Counted 100
[2022-08-19 07:49] LABS: Polychromasia Present
[2022-08-19] MEDS: hydrALAZINE HCL 50 MG TAB PO SCH ×2 (09:32→20:32)
[2022-08-19] MEDS: allopurinoL 100 MG TAB PO SCH (09:32)
[2022-08-19] MEDS: TAMSULOSIN 0.4 MG CAP.ER.24H PO SCH ×2 (09:32→20:32)
[2022-08-19] MEDS: CALCIUM CARBONATE 500 MG CHEWABLE PO SCH (09:32)
[2022-08-19] MEDS: ANAGRELIDE HCL 1 MG PO SCH ×2 (09:33→20:32)
[2022-08-19] MEDS: LIDOCAINE 5% PATCH TOPICAL SCH (09:33)
[2022-08-19 10:14] LABS: Appearance,BF Slightly Cloudy
--- NOTE | 2022-08-19 10:26 | P.PN ---
Subjective Progress Note Date: 08/19/22 Hospital Course: 86-year-old male with history of ESRD on paratonia on dialysis, recently started on intermittent hemodialysis, chronic diastolic failure hypertension, gout presented after a syncopal episode. In the ER, patient was bradycardic up to 25, respiratory rate 18, saturating at 96% on room air, temperature 96.6, no blood pressure recorded in the chart. EKG shows third-degree AV block. Chest x-ray shows bilateral vascular congestion. On further discussion with ER attending, patient was given a cocktail for hyperkalemia after being approved by cardiology. During that time, Patient had a long pause, and CPR was initiated. Patient however woke up within 20 seconds, and was not intubated. He did receive one time epinephrine. Patient was taken directly to skilled laborer for tempor марина pacemaker. Patient to be admitted to medical ICU. Lab work at the time of admission showed WBC 10.6, hemoglobin 10, MCV 103, platelet 444 sodium of 134, chloride 97, creatinine 5.24, magnesium 2.0, potassium 4.3, TSH 0.766. Patient is now status post insertion of pacemaker lead with externalized generator. Patient also has bilateral heel wounds. ID has been consulted to rule out any infection. Once infection is ruled out, patient will then get a permanent pacemaker. Subjective: Patient seen and examined at bedside. No acute events overnight. He denies any chest pain, any shortness of breath, abdominal pain, nausea, vomiting, diarrhea, constipation. Pertinent positives and negatives as discussed above, a complete review of systems was performed and all other systems are negative. Vitals Signs Reviewed. General: nontoxic, no distress, appears at stated age Derm: warm, dry, PD site and chest wall catheter site has a dressing, appears clean, dry, intact, bilateral heel wounds covered in dressing , has pacemaker with external generator. Head: atraumatic, normocephalic, symmetric Eyes: EOMI, no lid lag, anicteric sclera, pupils equal round reactive to light ENT: Nose and ears atraumatic Neck: No thyromegaly, supple Mouth: no lip lesion, mucus membranes moist Cardiovascular: S1S2 reg, no murmur, no edema Lungs: clear to auscultation bilateral, no rhonchi, no rales, no wheeze, no accessory muscle use, supplemental oxygen Abdominal: soft, nontender to palpation, no guarding, no appreciable organomegaly Ext: no gross muscle atrophy, muscle strength muscle strength 5 out of 5 in all 4 extremities, no contractures Neuro: CN II-XII grossly intact Psych: Alert, oriented, appropriate affect Data Reviewed Today: Pertinent Labs: WBC 8.5, hemoglobin 9.3, platelets 373, sodium 132, chloride 95, creatinine 6.29 Assessment and Plan: Patient is currently in the medical ICU, possibly downgraded to medical surgical floor. Active: Third-degree AV block status post pacemaker with external generator Cardiac arrest requiring CPR ESRD on intermittent hemodialysis as well as peritoneotomy dialysis Mild hyponatremia Bilateral heel wounds present on admission -Cardiology following, currently patient has an external generator for pacemaker, planning to place permanent pacemaker if clear of any infection -Hold beta blockers and calcium channel blockers -Echocardiogram pending -Nephrology note reviewed from 08/18, vascular access not functioning, patient resumed on paratonia on dialysis, also started on darbepoetin 40 g per week -Continue monitor BMP for electrolytes -ID note reviewed from 08/18, waiting for blood cultures and paratonia cultures, and inflammatory markers, no antibiotics at the moment Resolved: Syncope and collapse Symptomatic bradycardia Chronic: Diastolic heart failure Hypertension Chronic microcytic anemia Thrombocytosis DVT ppx: Subcu heparin Code status: Full code Anticipated discharge place: Pending clinical course Anticipated discharge time: Pending clinical course Objective - Vital Signs Vital signs: Vital Signs Temp 97.5 F L 08/19/22 08:00 Pulse 59 L 08/19/22 08:00 Resp 14 08/19/22 08:00 BP 141/65 08/19/22 08:00 Pulse Ox 97 08/19/22 08:00 FiO2 Intake & Output 08/18/22 08/19/22 08/19/22 18:59 06:59 18:59 Intake Total 610 0 Output Total 10 Balance 610 -10 Weight 72.4 kg 76.1 kg Intake: IV 10 0 KVO 10 0 Oral 600 Output: Urine 10 Other: Voiding Method Urinal Urinal # Voids 0 - Labs CBC & Chem 7: 08/19/22 05:30 08/19/22 05:30 Labs: Abnormal Lab Results - Last 24 Hours (Table) 08/18/22 08/19/22 08/19/22 Range/Units 05:29 05:30 05:30 RBC (4.30-5.90) m/uL Hgb (13.0-17.5) gm/dL Hct (39.0-53.0) % MCV (80.0-100.0) fL RDW (11.5-15.5) % Lymphocytes # (Manual) (1.0-4.8) k/uL Metamyelocytes # (Man) (0) k/uL Myelocytes # (Manual) (0) k/uL Sodium 132 L (137-145) mmol/L Chloride 95 L (98-107) mmol/L BUN 90 H (9-20) mg/dL Creatinine 6.29 H (0.66-1.25) mg/dL Iron 47 L (65-175) ug/dL TIBC 195 L (228-460) ug/dL Transferrin 139.0 L (204.0-354.0) mg/dL C-Reactive Protein 14.2 H (<1.0) mg/dL Procalcitonin 0.72 H (0.02-0.09) ng/mL 08/19/22 Range/Units 05:30 RBC 2.88 L (4.30-5.90) m/uL Hgb 9.3 L (13.0-17.5) gm/dL Hct 29.9 L (39.0-53.0) % MCV 103.7 H (80.0-100.0) fL RDW 16.6 H (11.5-15.5) % Lymphocytes # (Manual) 0.17 L (1.0-4.8) k/uL Metamyelocytes # (Man) 0.17 H (0) k/uL Myelocytes # (Manual) 0.09 H (0) k/uL Sodium (137-145) mmol/L Chloride (98-107) mmol/L BUN (9-20) mg/dL Creatinine (0.66-1.25) mg/dL Iron (65-175) ug/dL TIBC (228-460) ug/dL Transferrin (204.0-354.0) mg/dL C-Reactive Protein (<1.0) mg/dL Procalcitonin (0.02-0.09) ng/mL
--- NOTE | 2022-08-19 11:27 | PN ---
PROGRESS NOTE SUBJECTIVE: Mr. Montesinos is a patient with a complete heart block, has a ventricular single-lead pacemaker, externalized pulse generator because of active infection in the foot. I am recommending 2 sets of blood cultures. Pacemaker rate has been reduced from 60 to 50. There is good capture. OBJECTIVE: VITAL SIGNS: Stable. HEART: S1 and S2 heard normally. Short systolic murmur at left sternal border. LUNGS: Reveal diminished air entry. ABDOMEN: Soft. EXTREMITIES: Lower extremities reveal diminished pulses. I did not do a detailed exam of his decubitus ulcers. I am recommending 2 sets of blood cultures to make sure there is no active infection. Continue the pacemaker management for now. Prognosis remains poor. MMODL / IJN: [id number] /
--- NOTE | 2022-08-19 11:39 | P.PN ---
Subjective Patient is seen for follow-up for end-stage renal disease. Currently maintained on peritoneal dialysis. Patient was admitted with episode of unresponsiveness with complete heart block. Status post temporary pacemaker placement. Tolerating peritoneal dialysis well. This morning patient is awake with no significant complaints. Objective - Vital Signs Vital signs: Vital Signs Temp 97.5 F L 08/19/22 08:00 Pulse 59 L 08/19/22 08:00 Resp 14 08/19/22 08:00 BP 141/65 08/19/22 08:00 Pulse Ox 97 08/19/22 08:00 FiO2 Intake & Output 08/18/22 08/19/22 08/19/22 18:59 06:59 18:59 Intake Total 610 0 Output Total 10 Balance 610 -10 Weight 72.4 kg 76.1 kg 76.1 kg Intake: IV 10 0 KVO 10 0 Oral 600 Output: Urine 10 Other: Voiding Method Urinal Urinal # Voids 0 - Exam Awake, comfortable, no acute distress Examination of the heart S1 and S2 Examination of lungs decreased breath sounds at the bases Abdomen is soft distended nontender Examination of the lower extremities shows bilateral extremities to be wrapped - Labs CBC & Chem 7: 08/19/22 05:30 08/19/22 05:30 Labs: Abnormal Lab Results - Last 24 Hours (Table) 08/18/22 08/19/22 08/19/22 Range/Units 05:29 05:30 05:30 RBC (4.30-5.90) m/uL Hgb (13.0-17.5) gm/dL Hct (39.0-53.0) % MCV (80.0-100.0) fL RDW (11.5-15.5) % Lymphocytes # (Manual) (1.0-4.8) k/uL Metamyelocytes # (Man) (0) k/uL Myelocytes # (Manual) (0) k/uL Sodium 132 L (137-145) mmol/L Chloride 95 L (98-107) mmol/L BUN 90 H (9-20) mg/dL Creatinine 6.29 H (0.66-1.25) mg/dL Iron 47 L (65-175) ug/dL TIBC 195 L (228-460) ug/dL Transferrin 139.0 L (204.0-354.0) mg/dL C-Reactive Protein 14.2 H (<1.0) mg/dL Procalcitonin 0.72 H (0.02-0.09) ng/mL 08/19/22 Range/Units 05:30 RBC 2.88 L (4.30-5.90) m/uL Hgb 9.3 L (13.0-17.5) gm/dL Hct 29.9 L (39.0-53.0) % MCV 103.7 H (80.0-100.0) fL RDW 16.6 H (11.5-15.5) % Lymphocytes # (Manual) 0.17 L (1.0-4.8) k/uL Metamyelocytes # (Man) 0.17 H (0) k/uL Myelocytes # (Manual) 0.09 H (0) k/uL Sodium (137-145) mmol/L Chloride (98-107) mmol/L BUN (9-20) mg/dL Creatinine (0.66-1.25) mg/dL Iron (65-175) ug/dL TIBC (228-460) ug/dL Transferrin (204.0-354.0) mg/dL C-Reactive Protein (<1.0) mg/dL Procalcitonin (0.02-0.09) ng/mL Assessment and Plan Assessment: 1. End-stage renal disease currently on peritoneal dialysis with temporary hemodialysis while patient was in rehab. Status post new left IJ catheter placement, however this has not been functioning well and patient is tolerating PD fairly well and has been transferred out of rehab. 2. Complete heart block status post temporary pacemaker placement 3. Bilateral feet ulcers status post antibiotics 4. 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 Patient is maintained on Tums however I do not believe he is taking it as a phosphate binder. Calcium was mildly elevated at 10.2 it is currently 9.5 this morning. Phosphorus 3.8. I will check PTH level 5. Anemia of chronic disease Plan: Check PTH DC Tums Continue with current PD exchanges
[2022-08-19 14:17] LABS: Albumin, Fluid Source Peritoneal Fluid; LDH, Body Fluid Source Peritoneal Fluid
--- NOTE | 2022-08-19 14:42 | CA ---
Transthoracic Echo Report Name: Shine Montesinos Age: 86 Gender: M : 1935 Exam Date: 08/19/2022 07:35 Exam Location: [facility] Ht (in): 71 Wt (lb): 167 Ordering Physician: Amarjit Monsalve MD Attending/Referring Phys: Cloth Desizing Range Operator Chief Mendoza Slater RDCS Procedure CPT: Indications: 3rd degree block Cardiac Hx: COPD. CAD; Pacemaker Rhythm; Technical Quality: Fair Contrast 1: Total Dose (mL): Contrast 2: Total Dose (mL): MEASUREMENTS (Male / Female) Normal Values 2D ECHO LV Diastolic Diameter PLAX 5.4 cm 4.2 - 5.9 / 3.9 - 5.3 cm LV Systolic Diameter PLAX 3.9 cm LV Fractional Shortening PLAX 27.8 % IVS Diastolic Thickness 1.3 cm 0.6 - 1.0 / 0.6 - 0.9 cm IVS Systolic Thickness 2.1 cm LVPW Diastolic Thickness 1.6 cm 0.6 - 1.0 / 0.6 - 0.9 cm LVPW Systolic Thickness 1.6 cm LV Relative Wall Thickness 0.5 RV Internal Dim ED PLAX 3.8 cm LVOT Diameter 2.2 cm LA Systolic Diameter LX 4.6 cm 3.0 - 4.0 / 2.7 - 3.8 cm LV Diastolic Volume MOD BP 127.9 cm??? 67 - 155 / 56 - 104 cm??? LV Systolic Volume MOD BP 60.7 cm??? 22 - 58 / 19 - 49 cm??? LV Ejection Fraction MOD BP 52.5 % >= 55 % LV Stroke Volume MOD BP 67.2 cm??? LV Diastolic Volume MOD 4C 119.6 cm??? LV Systolic Volume MOD 4C 55.6 cm??? LV Ejection Fraction MOD 4C 53.5 % LV Stroke Volume MOD 4C 64.0 cm??? LV Diastolic Length 4C 7.7 cm LV Systolic Length 4C 7.8 cm LV Diastolic Volume MOD 2C 126.8 cm??? LV Systolic Volume MOD 2C 65.7 cm??? LV Ejection Fraction MOD 2C 48.2 % LV Stroke Volume MOD 2C 61.1 cm??? LV Diastolic Length 2C 8.3 cm LV Systolic Length 2C 8.0 cm Ascending Aorta Diameter 3.3 cm M-MODE Aortic Root Diameter MM 3.7 cm MV E Point Septal Separation 1.1 cm AV Cusp Separation MM 1.7 cm DOPPLER AV Peak Velocity 137.4 cm/s AV Peak Gradient 7.6 mmHg MV Peak Velocity 129.8 cm/s MV Peak Gradient 6.7 mmHg MV Mean Velocity 51.3 cm/s MV Mean Gradient 1.6 mmHg MV Velocity Time Integral 33.8 cm MR Peak Velocity 569.3 cm/s MR Peak Gradient 129.6 mmHg MR Mean Velocity 415.0 cm/s MR Mean Gradient 78.1 mmHg MR Velocity Time Integral 199.1 cm MR Flow Rate PISA 83.6 cm???/s Mitral E Point Velocity 128.6 cm/s Mitral A Point Velocity 32.9 cm/s Mitral E to A Ratio 3.9 MV Deceleration Time 135.5 ms MV E' Velocity 7.4 cm/s Mitral E to MV E' Ratio 17.3 TR Peak Velocity 316.9 cm/s TR Peak Gradient 40.2 mmHg Right Ventricular Systolic Press 50.2 mmHg PV Peak Velocity 87.5 cm/s PV Peak Gradient 3.1 mmHg FINDINGS Left Ventricle Left ventricular ejection fraction is estimated at 45-50 %. Mild concentric left ventricular hypertrophy. Grade 3 diastolic dysfunction. Reduced global left ventricular systolic function. Right Ventricle Normal right ventricular size. Catheter/pacemaker wire in the right ventricular cavity. RVSP- 50 mm Hg. Right Atrium Mild right atrial dilatation. Catheter/pacemaker wire in the right atrial cavity. Left Atrium Mild left atrial dilatation. Mitral Valve Mitral valve thickened. Ipnntxum-fo-pzzobr mitral regurgitation. Aortic Valve Trileaflet aortic valve. [id number] aortic regurgitation. Tricuspid Valve Jfwt-[id number] tricuspid regurgitation. Pulmonic Valve Mild pulmonic regurgitation. Pericardium Normal pericardium. No pericardial effusion. Aorta Mild aortic dilatation at the level of the sinuses of valsalva (root). CONCLUSIONS Normal LV size with ejection fraction 45-50% Moderate to severe mitral regurgitation Previewed by: Dr. Faisal Rebolledo MD (Electronically Signed) Final Date: 19 August 2022 14:41
--- NOTE | 2022-08-19 16:13 | P.PN ---
Subjective Progress Note Date: 08/19/22 Principal diagnosis: Bilateral heel wound Patient is 86-year male with a past medical history significant for hypertension end-stage renal disease on peritoneal dialysis, patient noticed to be in third-degree heart block and did have a transvenous pacer placement notice d to have a bilateral heel wound and considered to be high risk of infection. On today's evaluation that is 08/20/2019 the patient remains to be afebrile, the patient is hemodynamically stable and is breathing comfortably currently on 2 L nasal cannula denies any chest pain occasional cough did have some abdominal discomfort with the dialysis but no vomiting or diarrhea has been reported or pain to bilateral Objective - Vital Signs Vital signs: Vital Signs Temp 97.5 F L 08/19/22 08:00 Pulse 59 L 08/19/22 08:00 Resp 14 08/19/22 08:00 BP 141/65 08/19/22 08:00 Pulse Ox 97 08/19/22 08:00 FiO2 Intake & Output 08/18/22 08/19/22 08/19/22 18:59 06:59 18:59 Intake Total 610 0 Output Total 10 Balance 610 -10 Weight 72.4 kg 76.1 kg 76.1 kg Intake: IV 10 0 KVO 10 0 Oral 600 Output: Urine 10 Other: Voiding Method Urinal Urinal # Voids 0 - Exam GENERAL DESCRIPTION: An elderly male lying in bed in no distress RESPIRATORY SYSTEM: Unlabored breathing , decreased breath sounds at bases HEART: S1 S2 regular rate and rhythm , ABDOMEN: Soft , no tenderness EXTREMITIES: Bilateral heel is currently dressed - Labs CBC & Chem 7: 08/19/22 05:30 08/19/22 05:30 Labs: Abnormal Lab Results - Last 24 Hours (Table) 08/18/22 08/19/22 08/19/22 Range/Units 05:29 05:30 05:30 RBC (4.30-5.90) m/uL Hgb (13.0-17.5) gm/dL Hct (39.0-53.0) % MCV (80.0-100.0) fL RDW (11.5-15.5) % Lymphocytes # (Manual) (1.0-4.8) k/uL Metamyelocytes # (Man) (0) k/uL Myelocytes # (Manual) (0) k/uL Sodium 132 L (137-145) mmol/L Chloride 95 L (98-107) mmol/L BUN 90 H (9-20) mg/dL Creatinine 6.29 H (0.66-1.25) mg/dL Iron 47 L (65-175) ug/dL TIBC 195 L (228-460) ug/dL Transferrin 139.0 L (204.0-354.0) mg/dL C-Reactive Protein 14.2 H (<1.0) mg/dL Procalcitonin 0.72 H (0.02-0.09) ng/mL 08/19/22 Range/Units 05:30 RBC 2.88 L (4.30-5.90) m/uL Hgb 9.3 L (13.0-17.5) gm/dL Hct 29.9 L (39.0-53.0) % MCV 103.7 H (80.0-100.0) fL RDW 16.6 H (11.5-15.5) % Lymphocytes # (Manual) 0.17 L (1.0-4.8) k/uL Metamyelocytes # (Man) 0.17 H (0) k/uL Myelocytes # (Manual) 0.09 H (0) k/uL Sodium (137-145) mmol/L Chloride (98-107) mmol/L BUN (9-20) mg/dL Creatinine (0.66-1.25) mg/dL Iron (65-175) ug/dL TIBC (228-460) ug/dL Transferrin (204.0-354.0) mg/dL C-Reactive Protein (<1.0) mg/dL Procalcitonin (0.02-0.09) ng/mL Assessment and Plan (1) Healing wound present on both lower extremities Current Visit: Yes Status: Acute Code(s): GDA2511 - SNOMED Code(s): 758774357 Plan: 1patient presented to hospital with syncopal episode and has been noticed to be in third-degree heart block and the patient did require temporary transvenous pacer placement and cardiology planning for permanent pacemaker placement patient noticed to have a deep tissue injury to bilateral heel area and concern for possible high risk for infection hence infectious disease was consulted patient is currently not running any fever did have mild elevated white count patient did have bilateral heel deep tissue injury however there is no evidence of any cellulitis fluctuation or any drainage, patient did have a multiple bruises to the skin keeping in mind his multiple comorbidities and overall clinical condition patient will be high risk for infection if the permanent pacemaker can be delayed to make sure the patient not bacteremic that would be ideal, 2-for now local care to bilateral heel with heel protectors to keep the area of the pressure keep it dry and there is no need for any systemic antibiotics or local cream to bilateral heel area 3-blood culture so far pending, the patient white count has normalized, peritoneal fluid with only 11 WBC, Chest x-ray has been requested if the blood cultures remains to be negative by tomorrow he may be able to go for a permanent pacemaker placement the patient be considered a high risk of infection with other comorbidities discussed above Time with Patient: Less than 30
--- NOTE | 2022-08-19 20:54 | XR ---
EXAMINATION TYPE: XR chest 1V portable DATE OF EXAM: 08/19/2022 HISTORY: Shortness of breath. COMPARISON: 08/17/2022 TECHNIQUE: Single view of the chest is submitted. FINDINGS: Demonstrated are scattered senescent parenchymal change. Perihilar and basilar infiltrates with small effusions persist. Correlate for fluid overload. Underly ing pneumonia not excluded. Overall no significant change. The heart is stable. Hilar and mediastinal structures are within normal limits. Degenerative changes are seen of the dorsal spine. IMPRESSION: 1. Perihilar and basilar infiltrates with small effusions persist. Correlate for fluid overload. Und erlying pneumonia not excluded. Overall no significant change.
[2022-08-20] MEDS: DIALYSIS (PERIT 1.5%) 2,000 ML 30 G/2,000 ML BAG INTRAPERIT SCH ×4 (00:22→18:33)
[2022-08-20] MEDS: HEPARIN SODIUM,PORCINE/PF 5,000 UNIT/0.5 ML SYRINGE SQ SCH ×3 (00:22→15:42)
[2022-08-20 06:20] LABS: Calcium 9.6 mg/dL (8.4-10.2); Potassium 4.2 mmol/L (3.5-5.1)
[2022-08-20] MEDS: PANTOPRAZOLE 40 MG TABLET PO SCH (06:39)
[2022-08-20 06:41] LABS: Anisocytosis Slight; HCT 28.7 % (39.0-53.0); HGB 9.1 gm/dL (13.0-17.5); Hypochromasia Slight; MCH 32.8 pg (25.0-35.0); MCHC 31.6 g/dL (31.0-37.0); MCV 103.8 fL (80.0-100.0); Macrocytosis Moderate; Mean Platelet Volume 11.1; Platelet Count 346 k/uL (150-450); RBC 2.77 m/uL (4.30-5.90); RDW 16.6 % (11.5-15.5); WBC 8.2 k/uL (3.8-10.6)
[2022-08-20 07:07] LABS: Basophils # (M) 0.08 k/uL (0-0.2); Eosinophils # (M) 0.16 k/uL (0-0.7); Large Platelets Present; Lymphocytes # (M) 0.33 k/uL (1.0-4.8); Monocytes # (M) 0.66 k/uL (0-1.0); Neutrophils # (M) 6.97 k/uL (1.3-7.7); Neutrophils % (M) 85 %; Nucleated Red Blood Cells 0 /100 WBC (0-0); Poikilocytosis (M) Present; Polychromasia Present; Total Cells Counted 100
[2022-08-20] MEDS: hydrALAZINE HCL 50 MG TAB PO SCH ×2 (08:44→20:44)
[2022-08-20] MEDS: TAMSULOSIN 0.4 MG CAP.ER.24H PO SCH ×2 (08:44→20:44)
[2022-08-20] MEDS: LIDOCAINE 5% PATCH TOPICAL SCH (08:45)
[2022-08-20] MEDS: allopurinoL 100 MG TAB PO SCH (08:45)
[2022-08-20] MEDS: ANAGRELIDE HCL 1 MG PO SCH ×2 (08:46→20:44)
[2022-08-20] MEDS ORDERED: LIDOCAINE 1% INJ 10MG/ML (30 ML VIAL-PF) SQ ONE (09:00)
--- NOTE | 2022-08-20 11:25 | P.CONS ---
History of Present Illness - Reason for Consult Consult date: 08/20/22 wound care - History of Present Illness This is an 86-year-old gentleman being seen in ICU for nonhealing ulcerations to bilateral calcaneus. Patient has unstageable ulcerations to bilateral calcaneus. The right calcaneus of the ulceration measuring approximately 1.5 x 1.5 x 0.1 cm that is unstageable with eschar In place. The ulceration is tender to touch and soft. The left ulceration measures approximately 0.7 x 0.4 x 0.[address]char In place. The area is nontender to palpation and is firm. Patient states that the ulcerations have been there for a few months. He does see a tail worker who told him to stay off of it. No drainage noted from the site. No granulation seen within the wound bed. Review Of Systems: Constitutional: No fever, no chills, no night sweats. No weight change. No weakness, fatigue or lethargy. No daytime sleepiness. Integumentary:reports wounds, no lesions. No rash or pruritus. No unusual bruising. No change in hair or nails. Physical exam: General Appearance: Alert, cooperative, no distress, appears stated age. Skin: See HPI all other Skin color, texture, tugor normal, no rashes or lesions. Neurologic: Alert oriented x3 Assessment: 1. Unstageable pressure ulcer right heel 2. Unstageable pressure ulcer left heel 3. Peritoneal dialysis Plan: 1.Right foot: Apply honey gel, Abd and wrap with rolled gauze. Left foot: Apply honey gel and border foam. Continue to utilize heel protectors. Patient will benefit from treatment and advance wound care center upon discharge. We'll be happy to see him in the wound care center upon discharge Thank you for the consultation any questions please contact the wound care center. DNP note has been reviewed and discussed with Dr. Ordonez and the impression and plan of care has been directed as dictated. Past Medical History Past Medical History: Heart Failure, Dialysis, Hypertension, Prostate Disorder, Renal Disease Additional Past Medical History / Comment(s): CURRENTLY DOING HEMODIALYSIS @ [facility] ([facility]). Thrombocytemia/elevated platelets. CKD stage IV. Anemia. BPH. 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 R hand index finger injury/partial amp. Colonoscopy. Past Anesthesia/Blood Transfusion Reactions: No Reported Reaction Past Psychological History: No Psychological Hx Reported Additional Psychological History / Comment(s): Pt resides with his spouse. He is independent. Smoking Status: Never smoker Past Alcohol Use History: Rare Additional Past Alcohol Use History / Comment(s): Just returned from a month long trip to [place]. Had occasional glass of wine on his trip but doesn't drink alcohol on a regular basis otherwise. Past Drug Use History: None Reported - Past Family History Father Family Medical History: Cancer, Hypertension, Renal Disease Additional Family Medical History / Comment(s): Kidney Cancer Mother Family Medical History: No Reported History Additional Family Medical History / Comment(s): Mother was healthy Medications and Allergies Home Medications Medication Instructions Recorded Confirmed Type Tamsulosin HCl [Flomax] 0.4 mg PO BID 05/24/14 08/17/22 History Anagrelide HCl [Agrylin] 1 mg PO TID 11/08/20 08/17/22 History NIFEdipine XL [Procardia XL] 30 mg PO BID 01/26/21 08/17/22 History Vit B Complx C/Folic Acid/Zinc 1 tab PO DAILY 03/19/21 08/17/22 History [Renaplex Tablet] Acetaminophen Tab [Tylenol] 650 mg PO Q4H PRN 08/17/22 08/17/22 History Calcium Carbonate [Tums] 1,000 mg PO TID 08/17/22 08/17/22 History Furosemide [Lasix] 80 mg PO BID 08/17/22 08/17/22 History Pantoprazole Sodium [Protonix] 40 mg PO DAILY 08/17/22 08/17/22 History allopurinoL [Zyloprim] 100 mg PO DAILY 08/17/22 08/17/22 History calcitrioL [Calcitriol] 0.25 mcg PO MOTUWETHFR 08/17/22 08/17/22 History hydrALAZINE HCL [Apresoline] 50 mg PO BID 08/17/22 08/17/22 History Allergies Allergy/AdvReac Type Severity Reaction Status Date / Time No Known Allergies Allergy Verified 06/27/22 10:23 Physical Exam Vitals: Vital Signs Temp Pulse Pulse Resp BP BP Pulse Ox 08/20/22 09:13 97.2 F L 49 L 22 132/93 96 08/20/22 08:07 98 08/20/22 06:02 98.3 F 49 L 13 134/60 98 08/20/22 06:00 49 L 19 134/60 97 08/20/22 04:00 98.7 F 49 L 26 H 134/64 96 08/20/22 02:00 49 L 22 95 08/20/22 00:29 97.9 F 49 L 18 134/64 98 08/20/22 00:00 97.9 F 49 L 12 149/88 98 08/19/22 22:00 49 L 19 98 08/19/22 20:00 98.3 F 49 L 15 137/86 98 08/19/22 18:06 97.6 F 49 L 23 137/86 96 08/19/22 16:00 49 L 8 L 134/68 95 08/19/22 15:41 97.6 F 49 L 22 134/68 96 08/19/22 12:00 98.2 F 49 L 12 133/66 98 Intake and Output 08/19/22 08/20/22 08/20/22 22:59 06:59 14:59 Intake Total 358 Output Total 2 0 Balance -2 0 358 Intake: Oral 358 Output: Urine 1 0 Stool 1 0 Other: Weight 78.3 kg Results CBC & Chem 7: 08/20/22 05:53 08/20/22 05:53 Labs: Abnormal Lab Results - Last 24 Hours (Table) 08/19/22 08/20/22 08/20/22 Range/Units 05:30 05:53 05:53 RBC 2.77 L (4.30-5.90) m/uL Hgb 9.1 L (13.0-17.5) gm/dL Hct 28.7 L (39.0-53.0) % MCV 103.8 H (80.0-100.0) fL RDW 16.6 H (11.5-15.5) % Lymphocytes # (Manual) 0.33 L (1.0-4.8) k/uL Sodium 133 L (137-145) mmol/L Chloride 95 L (98-107) mmol/L BUN 87 H (9-20) mg/dL Creatinine 6.63 H (0.66-1.25) mg/dL Glucose 101 H (74-99) mg/dL PTH Intact 212.0 H (14.0-72.0) pg/mL Microbiology - Last 24 Hours (Table) 08/19/22 01:00 Gram Stain - Preliminary Peritoneal Fluid Body Fluid Culture - Preliminary 08/18/22 11:09 Blood Culture - Preliminary Blood No Growth after 24 hours 08/18/22 11:02 Blood Culture - Preliminary Blood No Growth after 24 hours Assessment and Plan (1) Unstageable pressure ulcer of left heel Current Visit: Yes Status: Acute Code(s): L89.620 - PRESSURE ULCER OF LEFT HEEL, UNSTAGEABLE SNOMED Code(s): 65864773860489 (2) Unstageable pressure ulcer of right heel Current Visit: Yes Status: Acute Code(s): L89.610 - PRESSURE ULCER OF RIGHT HEEL, UNSTAGEABLE SNOMED Code(s): 46735221904126
--- NOTE | 2022-08-20 11:33 | P.PN ---
Subjective Patient is seen for follow-up for end-stage renal disease. Currently maintained on peritoneal dialysis. Patient was admitted with episode of unresponsiveness with complete heart block. Status post temporary pacemaker placement. Tolerating peritoneal dialysis well. This morning patient is awake with no significant complaints. Tolerating oral intake Objective - Vital Signs Vital signs: Vital Signs Temp 97.2 F L 08/20/22 09:13 Pulse 49 L 08/20/22 09:13 Resp 22 08/20/22 09:13 BP 132/93 08/20/22 09:13 Pulse Ox 96 08/20/22 09:13 FiO2 Intake & Output 08/19/22 08/20/22 08/20/22 18:59 06:59 18:59 Intake Total 500 358 Output Total 0 2 Balance 500 -2 358 Weight 76.1 kg 78.3 kg Intake: Oral 500 358 Output: Urine 0 1 Stool 1 - Exam Sleeping but arousable, comfortable, no acute distress Examination of the heart S1 and S2 Examination of lungs decreased breath sounds at the bases Abdomen is soft distended nontender Examination of the lower extremities shows 2+ edema - Labs CBC & Chem 7: 08/20/22 05:53 08/20/22 05:53 Labs: Abnormal Lab Results - Last 24 Hours (Table) 08/19/22 08/20/22 08/20/22 Range/Units 05:30 05:53 05:53 RBC 2.77 L (4.30-5.90) m/uL Hgb 9.1 L (13.0-17.5) gm/dL Hct 28.7 L (39.0-53.0) % MCV 103.8 H (80.0-100.0) fL RDW 16.6 H (11.5-15.5) % Lymphocytes # (Manual) 0.33 L (1.0-4.8) k/uL Sodium 133 L (137-145) mmol/L Chloride 95 L (98-107) mmol/L BUN 87 H (9-20) mg/dL Creatinine 6.63 H (0.66-1.25) mg/dL Glucose 101 H (74-99) mg/dL PTH Intact 212.0 H (14.0-72.0) pg/mL Microbiology - Last 24 Hours (Table) 08/19/22 01:00 Gram Stain - Preliminary Peritoneal Fluid Body Fluid Culture - Preliminary 08/18/22 11:09 Blood Culture - Preliminary Blood No Growth after 24 hours 08/18/22 11:02 Blood Culture - Preliminary Blood No Growth after 24 hours Assessment and Plan Assessment: 1. End-stage renal disease currently on peritoneal dialysis with temporary hemodialysis while patient was in rehab. Status post new left IJ catheter placement, however this has not been functioning well and patient is tolerating PD fairly well and has been transferred out of rehab. 2. Complete heart block status post temporary pacemaker placement 3. Bilateral feet ulcers status post antibiotics 4. 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 Patient is maintained on Tums however I do not believe he is taking it as a phosphate binder. Calcium was mildly elevated at 10.2 it is currently 9.5 this morning. Phosphorus 3.8. I will check PTH level 5. Anemia of chronic disease 6. Volume overload with significant third spacing, low albumin Plan: PTH was 212 therefore I will continue with the Rocaltrol DC Tums Increase UF with PD. Alternate 2.5% solution with 1.5% solution
[2022-08-20] MEDS: DIALYSIS (PERIT 2.5%) 2,000 ML 50 G/2,000 ML BAG INTRAPERIT SCH (12:47)
--- NOTE | 2022-08-20 14:20 | P.PN ---
Subjective Progress Note Date: 08/20/22 86-year-old male with history of ESRD on peritoneal dialysis, recently started on intermittent hemodialysis, chronic diastolic failure hypertension, gout presented after a syncopal episode. In the ER, patient was bradycardic up to 25, respiratory rate 18, saturating at 96% on room air, temperature 96.6, no blood pressure recorded in the chart. EKG shows third-degree AV block. Chest x-ray shows bilateral vascular congestion. On further discussion with ER attending, patient was given a cocktail for hyperkalemia after being approved by cardiology. During that time, Patient had a long pause, and CPR was initiated. Patient however woke up within 20 seconds, and was not intubated. He did receive one time epinephrine. Patient was taken directly to lab rn for temporary pacemaker. Patient to be admitted to medical ICU. Lab work at the time of admission showed WBC 10.6, hemoglobin 10, MCV 103, platelet 444 sodium of 134, chloride 97, creatinine 5.24, magnesium 2.0, potassium 4.3, TSH 0.766. Patient is now status post insertion of pacemaker lead with externalized generator. Patient also has bilateral heel wounds. ID has been consulted to rule out any infection. Once infection is ruled out, patient will then get a permanent pacemaker. Patient seen and examined at bedside. No acute events overnight. He reports soreness in both of his feet. He otherwise has no other complaints. General: nontoxic, no distress, appears at stated age Derm: warm, dry, PD site and chest wall catheter site has a dressing, appears clean, dry, intact, bilateral heel wounds covered in dressing, has pacemaker with external generator. Head: atraumatic, normocephalic, symmetric Eyes: EOMI, no lid lag, anicteric sclera ENT: Nose and ears atraumatic Neck: No thyromegaly, supple Mouth: no lip lesion, mucus membranes moist Cardiovascular: S1S2 reg, no murmur, no edema Lungs: clear to auscultation bilateral, no rhonchi, no rales, no wheeze, no accessory muscle use, supplemental oxygen Ext: no gross muscle atrophy, muscle strength muscle strength 5 out of 5 in all 4 extremities, no contractures Psych: Alert, oriented, appropriate affect Third-degree AV block status post pacemaker with external generator Cardiac arrest requiring CPR 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 I have reviewed the following marine consultant notes: Nephrology note 08/20, PTH of 212, continue Rocaltrol, discontinue Tums, increase UF with PD. Wound care note 08/20, apply honey gel to bilateral heel wounds, continue to utilize heel protectors, outpatient follow up. I have reviewed the results of the following tests: CBC shows hemoglobin of 9.1 with MCV of 103.8. BMP shows sodium 133, chloride of 95, BUN of 87 and creatinine of 6.63. CRP elevated at 14.2. Pro-calcitonin elevated at 0.72. I have ordered the following tests: BMP ordered for tomorrow morning as patient is on peritoneal dialysis. I have discussed the care of this patient with the following independent historian: None. I have independently interpreted the following test below: None. I have discussed the management of this patient with the following physician: None. This patient has a moderate risk of morbidity due to the following reasons: Patient has an acute diagnosis of syncope that poses a threat to life or bodily function. This was complicated with cardiac arrest and ROSC. He has been diagnosed with third degree heart block and underwent temporary pacemaker. There are plans to for permenant pacemaker once infection is ruled out. Infectious cause thought to be bilateral heel wounds. Blood cultures are prelim negative at 48H. Cardiology and infectious disease is on board. DVT ppx: SQ Heparin Code status: FULL CODE Objective - Vital Signs Vital signs: Vital Signs Temp 97.7 F 08/20/22 12:05 Pulse 56 L 08/20/22 12:05 Resp 14 08/20/22 12:05 BP 142/89 08/20/22 12:05 Pulse Ox 98 08/20/22 12:05 FiO2 Intake & Output 08/19/22 08/20/22 08/20/22 18:59 06:59 18:59 Intake Total 500 608 Output Total 0 2 Balance 500 -2 608 Weight 76.1 kg 78.3 kg Intake: IV 10 Invasive Line 4 10 Oral 500 598 Output: Urine 0 1 Stool 1 - Labs CBC & Chem 7: 08/20/22 05:53 08/20/22 05:53 Labs: Abnormal Lab Results - Last 24 Hours (Table) 08/19/22 08/20/22 08/20/22 Range/Units 05:30 05:53 05:53 RBC 2.77 L (4.30-5.90) m/uL Hgb 9.1 L (13.0-17.5) gm/dL Hct 28.7 L (39.0-53.0) % MCV 103.8 H (80.0-100.0) fL RDW 16.6 H (11.5-15.5) % Lymphocytes # (Manual) 0.33 L (1.0-4.8) k/uL Sodium 133 L (137-145) mmol/L Chloride 95 L (98-107) mmol/L BUN 87 H (9-20) mg/dL Creatinine 6.63 H (0.66-1.25) mg/dL Glucose 101 H (74-99) mg/dL PTH Intact 212.0 H (14.0-72.0) pg/mL Microbiology - Last 24 Hours (Table) 08/18/22 11:09 Blood Culture - Preliminary Blood No Growth after 48 hours 08/18/22 11:02 Blood Culture - Preliminary Blood No Growth after 48 hours 08/19/22 01:00 Gram Stain - Preliminary Peritoneal Fluid Body Fluid Culture - Preliminary
[2022-08-20] MEDS: ACETAMINOPHEN TAB 325 MG TAB PO PRN (15:42)
--- NOTE | 2022-08-20 18:41 | P.PN ---
Subjective Progress Note Date: 08/20/22 Principal diagnosis: Bilateral heel wound Patient is 86-year male with a past medical history significant for hypertension end-stage renal disease on peritoneal dialysis, patient noticed to be in third-degree heart block and did have a transvenous pacer placement notice d to have a bilateral heel wound and considered to be high risk of infection. On today's evaluation that is 08/21/2019 the patient continues to be afebrile, the patient is hemodynamically stable not requiring any pressor support, the patient is breathing comfortably on 2 L nasal cannula, the patient denies any chest pain , the patient did have occasional cough with some sputum production, no vomiting or diarrhea has been reported and the patient denies pain to bilateral heel area Objective - Vital Signs Vital signs: Vital Signs Temp 97.2 F L 08/20/22 09:13 Pulse 49 L 08/20/22 09:13 Resp 22 08/20/22 09:13 BP 132/93 08/20/22 09:13 Pulse Ox 96 08/20/22 09:13 FiO2 Intake & Output 08/19/22 08/20/22 08/20/22 18:59 06:59 18:59 Intake Total 500 358 Output Total 0 2 Balance 500 -2 358 Weight 76.1 kg 78.3 kg Intake: Oral 500 358 Output: Urine 0 1 Stool 1 - Exam GENERAL DESCRIPTION: An elderly male lying in bed in no distress RESPIRATORY SYSTEM: Unlabored breathing , decreased breath sounds at bases HEART: S1 S2 regular rate and rhythm , ABDOMEN: Soft , no tenderness EXTREMITIES: Bilateral heel unstageable pressure ulcer with no evidence of any cellulitis right greater than left - Labs CBC & Chem 7: 08/20/22 05:53 08/20/22 05:53 Labs: Abnormal Lab Results - Last 24 Hours (Table) 08/19/22 08/20/22 08/20/22 Range/Units 05:30 05:53 05:53 RBC 2.77 L (4.30-5.90) m/uL Hgb 9.1 L (13.0-17.5) gm/dL Hct 28.7 L (39.0-53.0) % MCV 103.8 H (80.0-100.0) fL RDW 16.6 H (11.5-15.5) % Lymphocytes # (Manual) 0.33 L (1.0-4.8) k/uL Sodium 133 L (137-145) mmol/L Chloride 95 L (98-107) mmol/L BUN 87 H (9-20) mg/dL Creatinine 6.63 H (0.66-1.25) mg/dL Glucose 101 H (74-99) mg/dL PTH Intact 212.0 H (14.0-72.0) pg/mL Microbiology - Last 24 Hours (Table) 08/19/22 01:00 Gram Stain - Preliminary Peritoneal Fluid Body Fluid Culture - Preliminary 08/18/22 11:09 Blood Culture - Preliminary Blood No Growth after 24 hours 08/18/22 11:02 Blood Culture - Preliminary Blood No Growth after 24 hours Assessment and Plan (1) Healing wound present on both lower extremities Current Visit: Yes Status: Acute Code(s): ANN2149 - SNOMED Code(s): 693592258 Plan: 1patient presented to hospital with syncopal episode and has been noticed to be in third-degree heart block and the patient did require temporary transvenous pacer placement and cardiology planning for permanent pacemaker placement patient noticed to have a deep tissue injury to bilateral heel area and concern for possible high risk for infection hence infectious disease was consulted patient is currently not running any fever did have mild elevated white count patient did have bilateral heel pressure injury however there is no evidence of any cellulitis fluctuation or any drainage, patient did have a multiple bruises to the skin keeping in mind his multiple comorbidities and overall clinical condition patient will be high risk for infection if the permanent pacemaker can be delayed to make sure the patient not bacteremic that would be ideal, 2-for now local care to bilateral heel with heel protectors to keep the area of the pressure keep it dry and there is no need for any systemic antibiotics or local cream to bilateral heel area, discontinue the medahoney 3-patient did have mildly elevated pro calcitonin chest x-ray with some infiltrate which I think is mostly fluid pneumonia not entirely excluded sputum culture have been requested will empirically add Rocephin 2 g daily 4-blood cultures remains to be negative patient should be able to get his permanent pacemaker per cardiology Time with Patient: Less than 30
--- NOTE | 2022-08-20 20:58 | XR ---
EXAMINATION TYPE: XR chest 1V portable DATE OF EXAM: 08/20/2022 8:49 PM COMPARISON: Chest radiographs from 08/19/2022 TECHNIQUE: XR chest 1V portable Frontal view of the chest. CLINICAL INDICATION:Male, 86 years old with history of swelling to left shoulder; FINDINGS: Lungs/Pleura: There is no evidence of pleural effusion, focal consolidation, or pneumothorax. Pulmonary vascularity: Pulmonary vascular congestion. Heart/mediastinum: Cardiomediastinal silhouette is enlarged and stable. Musculoskeletal: No acute osseous pathology. Similar soft tissue swelling suggested over the left quinton ulder. No evidence of fracture. Other findings: None Lines/Tubes: Left central venous catheter has been removed. IMPRESSION: 1. Left shoulder increased soft tissue opacity there is no evidence of fracture. 2. Persistent cardiomegaly with increase pulmonary vascular congestion.
--- NOTE | 2022-08-20 21:12 | OP ---
DATE OF SERVICE : 08/20/2022 OPERATIVE REPORT DATE OF SERVICE : PROCEDURE PERFORMED: Removal of dialysis catheter, left jugular approach. DESCRIPTION OF PROCEDURE: This patient was seen in the room. Left side of the neck and chest was prepped. Drapes were applied in a sterile manner. 1% lidocaine plain was infiltrated. A small incision was made at the exit site of the catheter. The catheter was removed. Pressure was held, and a pressure dressing was applied. The patient tolerated the procedure well. MMODL / IJN: [id number] / MTDD
[2022-08-21] MEDS: ACETAMINOPHEN TAB 325 MG TAB PO PRN ×2 (00:17→09:13)
[2022-08-21] MEDS: HEPARIN SODIUM,PORCINE/PF 5,000 UNIT/0.5 ML SYRINGE SQ SCH ×3 (00:18→15:21)
[2022-08-21] MEDS: DIALYSIS (PERIT 2.5%) 2,000 ML 50 G/2,000 ML BAG INTRAPERIT SCH ×3 (00:20→18:10)
--- NOTE | 2022-08-21 01:26 | PN ---
PROGRESS NOTE SUBJECTIVE: Mr. Montesinos has a complete heart block and question of infection in his foot. He has some decubitus ulcers. He has a single-chamber ventricular pacemaker that is externalized. Blood cultures so far did not grow anything in 24 hours. He remains in a ventricular paced rhythm. The rate was at 50 and increasing to 55. OBJECTIVE: CARDIOVASCULAR: S1, S2 heard normally. Short systolic murmur noted. LUNGS: Revealed diminished air entry. PLAN: Plan is to continue pacemaker support until we get full clearance from the Infectious Disease specialist and also after the cultures are rendered negative at least we should get multiple cultures. In that situation, we can consider a permanent pacemaker. For now, we will continue the current care. Prognosis remains guarded. MMODL / IJN: [id number] /
[2022-08-21] MEDS: DIALYSIS (PERIT 1.5%) 2,000 ML 30 G/2,000 ML BAG INTRAPERIT SCH (06:13)
[2022-08-21 08:49] LABS: Anisocytosis Slight; HCT 29.9 % (39.0-53.0); HGB 9.2 gm/dL (13.0-17.5); Hypochromasia Slight; MCH 32.3 pg (25.0-35.0); MCHC 30.6 g/dL (31.0-37.0); MCV 105.7 fL (80.0-100.0); Macrocytosis Moderate; Mean Platelet Volume 10.7; Platelet Count 371 k/uL (150-450); RBC 2.83 m/uL (4.30-5.90); RDW 16.3 % (11.5-15.5); WBC 7.8 k/uL (3.8-10.6)
[2022-08-21 09:04] LABS: Calcium 9.5 mg/dL (8.4-10.2); Potassium 4.4 mmol/L (3.5-5.1)
[2022-08-21] MEDS: allopurinoL 100 MG TAB PO SCH (09:09)
[2022-08-21] MEDS: hydrALAZINE HCL 50 MG TAB PO SCH ×2 (09:09→20:28)
[2022-08-21] MEDS: LIDOCAINE 5% PATCH TOPICAL SCH (09:09)
[2022-08-21] MEDS: TAMSULOSIN 0.4 MG CAP.ER.24H PO SCH ×2 (09:09→20:28)
[2022-08-21] MEDS: PANTOPRAZOLE 40 MG TABLET PO SCH (09:09)
[2022-08-21] MEDS: ANAGRELIDE HCL 1 MG PO SCH ×2 (09:10→20:29)
--- NOTE | 2022-08-21 10:50 | P.PN ---
Subjective Patient is seen for follow-up for end-stage renal disease. Currently maintained on peritoneal dialysis. Patient was admitted with episode of unresponsiveness with complete heart block. Status post temporary pacemaker placement. Tolerating peritoneal dialysis well. This morning patient is awake with no significant complaints. Tolerating oral intake CAPD exchanges were changed to 1.5% solution alternating with 2.5% solution to increase UF. Patient has been hemodynamically stable. Blood pressure is actually on the high side with systolic around 150-1 60 mmHg Objective - Vital Signs Vital signs: Vital Signs Temp 97.7 F 08/21/22 08:00 Pulse 55 L 08/21/22 10:00 Resp 27 H 08/21/22 10:00 BP 167/65 08/21/22 10:00 Pulse Ox 96 08/21/22 10:00 FiO2 Intake & Output 08/20/22 08/21/22 08/21/22 18:59 06:59 18:59 Intake Total 1158 30 70 Output Total 30 0 Balance 1128 30 70 Weight 80 kg Intake: IV 80 30 70 Invasive Line 4 20 10 10 Invasive Line 5 10 20 10 cefTRIAXone 2 gm In 50 50 Sodium Chloride 0.9% 50 ml @ 100 mls/hr IVPB Q24HR [facility] Rx#:[id number] Oral 1078 Output: Urine 30 0 Other: # Voids 1 1 # Bowel Movements 1 - Exam Sleeping but arousable, comfortable, no acute distress Examination of the heart S1 and S2 Examination of lungs decreased breath sounds at the bases Abdomen is soft distended nontender Examination of the lower extremities shows 2+ edema - Labs CBC & Chem 7: 08/21/22 07:05 08/21/22 07:05 Labs: Abnormal Lab Results - Last 24 Hours (Table) 08/21/22 08/21/22 Range/Units 07:05 07:05 RBC 2.83 L (4.30-5.90) m/uL Hgb 9.2 L (13.0-17.5) gm/dL Hct 29.9 L (39.0-53.0) % MCV 105.7 H (80.0-100.0) fL MCHC 30.6 L (31.0-37.0) g/dL RDW 16.3 H (11.5-15.5) % Sodium 133 L (137-145) mmol/L Chloride 94 L (98-107) mmol/L BUN 88 H (9-20) mg/dL Creatinine 6.58 H (0.66-1.25) mg/dL Microbiology - Last 24 Hours (Table) 08/19/22 01:00 Gram Stain - Preliminary Peritoneal Fluid Body Fluid Culture - Preliminary 08/18/22 11:09 Blood Culture - Preliminary Blood No Growth after 48 hours 08/18/22 11:02 Blood Culture - Preliminary Blood No Growth after 48 hours Assessment and Plan Assessment: 1. End-stage renal disease currently on peritoneal dialysis with temporary hemo dialysis while patient was in rehab. Status post new left IJ catheter placement, however this has not been functioning well and patient is tolerating PD fairly well and has been transferred out of rehab. Left-sided IJ permacath was removed on 08/20/2022 2. Complete heart block status post temporary pacemaker placement 3. Bilateral feet ulcers status post antibiotics 4. 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 Patient is maintained on Tums however I do not believe he is taking it as a phosphate binder. Calcium was mildly elevated at 10.2 it is currently 9.5 this morning. Phosphorus 3.8. I will check PTH level 5. Anemia of chronic disease 6. Volume overload with significant third spacing, low albumin Plan: Change CAPD to 2.5% solution every 6 hours
--- NOTE | 2022-08-21 13:03 | P.PN ---
Subjective Progress Note Date: 08/21/22 86-year-old male with history of ESRD on peritoneal dialysis, recently started on intermittent hemodialysis, chronic diastolic failure hypertension, gout presented after a syncopal episode. In the ER, patient was bradycardic up to 25, respiratory rate 18, saturating at 96% on room air, temperature 96.6, no blood pressure recorded in the chart. EKG shows third-degree AV block. Chest x-ray shows bilateral vascular congestion. On further discussion with ER attending, patient was given a cocktail for hyperkalemia after being approved by cardiology. During that time, Patient had a long pause, and CPR was initiated. Patient however woke up within 20 seconds, and was not intubated. He did receive one time epinephrine. Patient was taken directly to civil laboratory technician for temporary pacemaker. Patient to be admitted to medical ICU. Lab work at the time of admission showed WBC 10.6, hemoglobin 10, MCV 103, platelet 444 sodium of 134, chloride 97, creatinine 5.24, magnesium 2.0, potassium 4.3, TSH 0.766. Patient is now status post insertion of pacemaker lead with externalized generator. Patient also has bilateral heel wounds. ID has been consulted to rule out any infection. Once infection is ruled out, patient will then get a permanent pacemaker. Patient seen and examined at bedside. No acute events overnight. He reports soreness in both of his feet. He otherwise has no other complaints. General: nontoxic, no distress, appears at stated age Derm: warm, dry, PD site and chest wall catheter site has a dressing, appears clean, dry, intact, bilateral heel wounds covered in dressing, has pacemaker with external generator. Head: atraumatic, normocephalic, symmetric Eyes: EOMI, no lid lag, anicteric sclera ENT: Nose and ears atraumatic Neck: No thyromegaly, supple Mouth: no lip lesion, mucus membranes moist Cardiovascular: S1S2 reg, no murmur, no edema Lungs: clear to auscultation bilateral, no rhonchi, no rales, no wheeze, no accessory muscle use, supplemental oxygen Ext: no gross muscle atrophy, muscle strength muscle strength 5 out of 5 in all 4 extremities, no contractures Psych: Alert, oriented, appropriate affect Third-degree AV block status post pacemaker with external generator Cardiac arrest requiring CPR 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 I have reviewed the following strategic sourcing consultant notes: Nephrology note 08/21, change CAPD to 2.5% solution every 6 hours, left-sided IJ permacath was removed on 08/20/2022. I have reviewed the results of the following tests: CBC shows hemoglobin of 9.2 with MCV of 105.7. BMP shows sodium 133, chloride of 94, BUN of 88 and creatinine of 6.58. I have ordered the following tests: BMP ordered for tomorrow morning as patient is on peritoneal dialysis. I have discussed the care of this patient with the following independent historian: None. I have independently interpreted the following test below: None. I have discussed the management of this patient with the following physician: None. This patient has a moderate risk of morbidity due to the following reasons: Patient has an acute diagnosis of syncope that poses a threat to life or bodily function. This was complicated with cardiac arrest and ROSC. He has been diagnosed with third degree heart block and underwent temporary pacemaker. There are plans to for permenant pacemaker once infection is ruled out. Infectious cause thought to be bilateral heel wounds. Blood cultures are prelim negative at 48H. He is on Rocephin empirically. Appears to be cleared by ID for permanent pacemaker placement. Cardiology is on board. DVT ppx: SQ Heparin Code status: FULL CODE Objective - Vital Signs Vital signs: Vital Signs Temp 97.8 F 08/21/22 12:11 Pulse 56 L 08/21/22 12:11 Resp 24 08/21/22 12:11 BP 140/57 08/21/22 12:11 Pulse Ox 94 L 08/21/22 12:11 FiO2 Intake & Output 08/20/22 08/21/22 08/21/22 18:59 06:59 18:59 Intake Total 1158 30 90 Output Total 30 0 Balance 1128 30 90 Weight 80 kg Intake: IV 80 30 90 Invasive Line 4 20 10 20 Invasive Line 5 10 20 20 cefTRIAXone 2 gm In 50 50 Sodium Chloride 0.9% 50 ml @ 100 mls/hr IVPB Q24HR [facility] Rx#:[id number] Oral 1078 Output: Urine 30 0 Other: # Voids 1 1 # Bowel Movements 1 - Labs CBC & Chem 7: 08/21/22 07:05 08/21/22 07:05 Labs: Abnormal Lab Results - Last 24 Hours (Table) 08/21/22 08/21/22 Range/Units 07:05 07:05 RBC 2.83 L (4.30-5.90) m/uL Hgb 9.2 L (13.0-17.5) gm/dL Hct 29.9 L (39.0-53.0) % MCV 105.7 H (80.0-100.0) fL MCHC 30.6 L (31.0-37.0) g/dL RDW 16.3 H (11.5-15.5) % Sodium 133 L (137-145) mmol/L Chloride 94 L (98-107) mmol/L BUN 88 H (9-20) mg/dL Creatinine 6.58 H (0.66-1.25) mg/dL Microbiology - Last 24 Hours (Table) 08/19/22 01:00 Gram Stain - Preliminary Peritoneal Fluid Body Fluid Culture - Preliminary 08/18/22 11:09 Blood Culture - Preliminary Blood No Growth after 48 hours 08/18/22 11:02 Blood Culture - Preliminary Blood No Growth after 48 hours
--- NOTE | 2022-08-21 14:30 | P.PN ---
Subjective Progress Note Date: 08/21/22 Principal diagnosis: Bilateral heel wound Patient is 86-year male with a past medical history significant for hypertension end-stage renal disease on peritoneal dialysis, patient noticed to be in third-degree heart block and did have a transvenous pacer placement notice d to have a bilateral heel wound and considered to be high risk of infection. On today's evaluation that is 08/21/2022 the patient remains to be afebrile, the patient is hemodynamically stable, the patient is breathing comfortably on 2 L nasal cannula oxygen, the patient denies any chest pain , the patient did have occasional cough and mentioning bringing up some sputum however no sputum has been collected, no vomiting or diarrhea has been reported and the patient denies pain to bilateral heel area Objective - Vital Signs Vital signs: Vital Signs Temp 97.8 F 08/21/22 12:11 Pulse 56 L 08/21/22 12:11 Resp 24 08/21/22 12:11 BP 140/57 08/21/22 12:11 Pulse Ox 94 L 08/21/22 12:11 FiO2 Intake & Output 08/20/22 08/21/22 08/21/22 18:59 06:59 18:59 Intake Total 1158 30 90 Output Total 30 0 Balance 1128 30 90 Weight 80 kg Intake: IV 80 30 90 Invasive Line 4 20 10 20 Invasive Line 5 10 20 20 cefTRIAXone 2 gm In 50 50 Sodium Chloride 0.9% 50 ml @ 100 mls/hr IVPB Q24HR [facility], [facility]–1983 Rx#:[id number] Oral 1078 Output: Urine 30 0 Other: # Voids 1 1 # Bowel Movements 1 - Exam GENERAL DESCRIPTION: An elderly male lying in bed in no distress RESPIRATORY SYSTEM: Unlabored breathing , decreased breath sounds at bases HEART: S1 S2 regular rate and rhythm , ABDOMEN: Soft , no tenderness EXTREMITIES: Bilateral heel unstageable pressure ulcer with no evidence of any cellulitis right greater than left - Labs CBC & Chem 7: 08/21/22 07:05 08/21/22 07:05 Labs: Abnormal Lab Results - Last 24 Hours (Table) 08/21/22 08/21/22 Range/Units 07:05 07:05 RBC 2.83 L (4.30-5.90) m/uL Hgb 9.2 L (13.0-17.5) gm/dL Hct 29.9 L (39.0-53.0) % MCV 105.7 H (80.0-100.0) fL MCHC 30.6 L (31.0-37.0) g/dL RDW 16.3 H (11.5-15.5) % Sodium 133 L (137-145) mmol/L Chloride 94 L (98-107) mmol/L BUN 88 H (9-20) mg/dL Creatinine 6.58 H (0.66-1.25) mg/dL Microbiology - Last 24 Hours (Table) 08/18/22 11:02 Blood Culture - Preliminary Blood No Growth after 72 hours 08/18/22 11:09 Blood Culture - Preliminary Blood No Growth after 72 hours 08/19/22 01:00 Gram Stain - Preliminary Peritoneal Fluid Body Fluid Culture - Preliminary Assessment and Plan (1) Healing wound present on both lower extremities Current Visit: Yes Status: Acute Code(s): [id number] - SNOMED Code(s): 406391109 Plan: 1patient presented to hospital with syncopal episode and has been noticed to be in third-degree heart block and the patient did require temporary transvenous pacer placement and cardiology planning for permanent pacemaker placement patient noticed to have a deep tissue injury to bilateral heel area and concern for possible high risk for infection hence infectious disease was consulted patient is currently not running any fever did have mild elevated white count patient did have bilateral heel pressure injury however there is no evidence of any cellulitis fluctuation or any drainage, patient did have a multiple bruises to the skin keeping in mind his multiple comorbidities and overall clinical condition patient will be high risk for infection if the permanent pacemaker can be delayed to make sure the patient not bacteremic that would be ideal, 2-for now local care to bilateral heel with heel protectors to keep the area of the pressure keep it dry and there is no need for any systemic antibiotics or local cream to bilateral heel area, discontinue the medahoney 3-patient did have mildly elevated pro calcitonin chest x-ray with some infiltrate which I think is mostly fluid pneumonia not entirely excluded sputum culture have been requested patient to continue with Rocephin 2 g daily 4-the patient blood cultures remains to be negative patient should be able to get his permanent pacemaker Time with Patient: Less than 30
--- NOTE | 2022-08-21 15:07 | PN ---
PROGRESS NOTE SUBJECTIVE: This is an 86-year-old gentleman with a third-degree heart block, who has a screw-in ventricular lead that has been externalized. The patient has a very stable lead. He is in ventricular paced rhythm at 55. Dr. Monterroso from Infectious Disease has cleared him for a permanent pacemaker. I will speak to Dr. Best to see if we can perform this procedure tomorrow. In the meantime, we will continue current medications. Blood pressure is slightly elevated. We will add amlodipine 5 mg p.o. daily. OBJECTIVE: VITAL SIGNS: Stable with a paced rhythm of 55. HEART: S1 and S2 heard normally. Short systolic murmur at the base. LUNGS: Reveal fair air entry. ABDOMEN: Soft. EXTREMITIES: Lower extremities reveal diminished pulses. Pacemaker site on the right subclavian is clean and dry. MMODL / IJN: [id number] /
[2022-08-21] MEDS: amLODIPine 5 MG TAB PO SCH (15:21)
[2022-08-22] MEDS: DIALYSIS (PERIT 2.5%) 2,000 ML 50 G/2,000 ML BAG INTRAPERIT SCH ×4 (00:07→18:07)
[2022-08-22] MEDS: ACETAMINOPHEN TAB 325 MG TAB PO PRN ×3 (01:36→18:07)
[2022-08-22] MEDS: HEPARIN SODIUM,PORCINE/PF 5,000 UNIT/0.5 ML SYRINGE SQ SCH ×3 (01:37→18:08)
[2022-08-22] MEDS: hydrALAZINE HCL 50 MG TAB PO SCH ×2 (08:04→20:03)
[2022-08-22] MEDS: amLODIPine 5 MG TAB PO SCH (08:04)
[2022-08-22] MEDS: allopurinoL 100 MG TAB PO SCH (08:04)
[2022-08-22] MEDS: PANTOPRAZOLE 40 MG TABLET PO SCH (08:04)
[2022-08-22] MEDS: TAMSULOSIN 0.4 MG CAP.ER.24H PO SCH ×2 (08:04→20:03)
[2022-08-22] MEDS: LIDOCAINE 5% PATCH TOPICAL SCH (08:05)
[2022-08-22] MEDS: SODIUM CHLORIDE 0.9% 1,000 ML IV SCH (08:06)
[2022-08-22] MEDS ORDERED: SODIUM CHLORIDE 0.9% 1,000 ML IV SCH (08:15)
--- NOTE | 2022-08-22 10:51 | P.PN ---
Subjective Patient is seen for follow-up for end-stage renal disease. Currently maintained on peritoneal dialysis. Patient was admitted with episode of unresponsiveness with complete heart block. Status post temporary pacemaker placement. Tolerating peritoneal dialysis well. This morning patient is awake with no significant complaints. Tolerating oral intake Permanent pacemaker postponed until tomorrow Objective - Vital Signs Vital signs: Vital Signs Temp 97.9 F 08/22/22 08:00 Pulse 56 L 08/22/22 08:00 Resp 25 H 08/22/22 08:00 BP 149/87 08/22/22 08:00 Pulse Ox 92 L 08/22/22 08:00 FiO2 Intake & Output 08/21/22 08/22/22 08/22/22 18:59 06:59 18:59 Intake Total 445 20 Output Total 0 0 Balance 445 20 Weight 81 kg Intake: IV 90 20 Invasive Line 4 20 10 Invasive Line 5 20 10 cefTRIAXone 2 gm In 50 Sodium Chloride 0.9% 50 ml @ 100 mls/hr IVPB Q24HR [facility] Rx#:[id number] Oral 355 Output: Urine 0 0 Stool 0 Other: # Voids 0 # Bowel Movements 0 - Exam Sleeping but arousable, comfortable, no acute distress Examination of the heart S1 and S2 Examination of lungs decreased breath sounds at the bases Abdomen is soft distended nontender Examination of the lower extremities shows 2+ edema - Labs CBC & Chem 7: 08/21/22 07:05 08/21/22 07:05 Labs: Microbiology - Last 24 Hours (Table) 08/19/22 01:00 Gram Stain - Preliminary Peritoneal Fluid Body Fluid Culture - Preliminary 08/18/22 11:02 Blood Culture - Preliminary Blood No Growth after 72 hours 08/18/22 11:09 Blood Culture - Preliminary Blood No Growth after 72 hours Assessment and Plan Assessment: 1. End-stage renal disease currently on peritoneal dialysis with temporary hemodialysis while patient was in rehab. Status post new left IJ catheter placement, however this has not been functioning well and patient is tolerating PD fairly well. Left IJ permacath was removed on 08/20/2022 2. Complete heart block status post temporary pacemaker placement, awaiting permanent pacemaker placement 3. Bilateral feet ulcers status post antibiotics 4. 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 Patient is maintained on Tums however I do not believe he is taking it as a phosphate binder. Calcium was mildly elevated at 10.2 it is currently 9.5 this morning. Phosphorus 3.8. I will check PTH level 5. Anemia of chronic disease 6. Volume overload with significant third spacing, low albumin Plan: Continue current PD exchanges Continue to encourage increased oral intake.
--- NOTE | 2022-08-22 11:37 | P.PN ---
Subjective Progress Note Date: 08/22/22 86-year-old male with history of ESRD on peritoneal dialysis, recently started on intermittent hemodialysis, chronic diastolic failure hypertension, gout presented after a syncopal episode. In the ER, patient was bradycardic up to 25, respiratory rate 18, saturating at 96% on room air, temperature 96.6, no blood pressure recorded in the chart. EKG shows third-degree AV block. Chest x-ray shows bilateral vascular congestion. On further discussion with ER attending, patient was given a cocktail for hyperkalemia after being approved by cardiology. During that time, Patient had a long pause, and CPR was initiated. Patient however woke up within 20 seconds, and was not intubated. He did receive one time epinephrine. Patient was taken directly to lab rn for temporary pacemaker. Patient to be admitted to medical ICU. Lab work at the time of admission showed WBC 10.6, hemoglobin 10, MCV 103, platelet 444 sodium of 134, chloride 97, creatinine 5.24, magnesium 2.0, potassium 4.3, TSH 0.766. Patient is now status post insertion of pacemaker lead with externalized generator. Patient also has bilateral heel wounds. ID has been consulted to rule out any infection. Once infection is ruled out, patient will then get a permanent pacemaker. Patient seen and examined at bedside. No acute events overnight. He reports soreness in both of his feet. He otherwise has no other complaints. General: nontoxic, no distress, appears at stated age Derm: warm, dry, PD site and chest wall catheter site has a dressing, appears clean, dry, intact, bilateral heel wounds covered in dressing, has pacemaker with external generator. Head: atraumatic, normocephalic, symmetric Eyes: EOMI, no lid lag, anicteric sclera ENT: Nose and ears atraumatic Neck: No thyromegaly, supple Mouth: no lip lesion, mucus membranes moist Cardiovascular: Bradycardic, no murmur, no edema Lungs: clear to auscultation bilateral, no rhonchi, no rales, no wheeze, no accessory muscle use, supplemental oxygen Ext: no gross muscle atrophy, muscle strength muscle strength 5 out of 5 in all 4 extremities, no contractures Psych: Alert, oriented, appropriate affect Third-degree AV block status post pacemaker with external generator Cardiac arrest requiring CPR 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 I have reviewed the following natural remedy consultant notes: Nephrology note 08/22, continue PD. I have reviewed the results of the following tests: Blood cultures are prelim negative at 72H. I have ordered the following tests: None. I have discussed the care of this patient with the following independent historian: None. I have independently interpreted the following test below: None. I have discussed the management of this patient with the following physician: None. This patient has a moderate risk of morbidity due to the following reasons: Patient has an acute diagnosis of syncope that poses a threat to life or bodily function. This was complicated with cardiac arrest and ROSC. He has been diagnosed with third degree heart block and underwent temporary pacemaker. There are plans to for permenant pacemaker once infection is ruled out. Infectious cause thought to be bilateral heel wounds. Blood cultures are prelim negative at 72H. He is on Rocephin empirically. Appears to be cleared by ID for permanent pacemaker placement. Cardiology is on board. Plans for procedure tomorrow. DVT ppx: SQ Heparin Code status: FULL CODE Objective - Vital Signs Vital signs: Vital Signs Temp 97.9 F 08/22/22 08:00 Pulse 56 L 08/22/22 10:00 Resp 18 08/22/22 10:00 BP 169/66 08/22/22 10:00 Pulse Ox 92 L 08/22/22 10:00 FiO2 Intake & Output 08/21/22 08/22/22 08/22/22 18:59 06:59 18:59 Intake Total 445 20 Output Total 0 0 Balance 445 20 Weight 81 kg Intake: IV 90 20 Invasive Line 4 20 10 Invasive Line 5 20 10 cefTRIAXone 2 gm In 50 Sodium Chloride 0.9% 50 ml @ 100 mls/hr IVPB Q24HR [facility] Rx#:[id number] Oral 355 Output: Urine 0 0 Stool 0 Other: # Voids 0 # Bowel Movements 0 - Labs CBC & Chem 7: 08/21/22 07:05 08/21/22 07:05 Labs: Microbiology - Last 24 Hours (Table) 08/19/22 01:00 Gram Stain - Preliminary Peritoneal Fluid Body Fluid Culture - Preliminary 08/18/22 11:02 Blood Culture - Preliminary Blood No Growth after 72 hours 08/18/22 11:09 Blood Culture - Preliminary Blood No Growth after 72 hours
[2022-08-22] MEDS: ANAGRELIDE HCL 1 MG PO SCH ×2 (11:59→20:04)
[2022-08-22 13:46] VITALS: BMI 24.9
--- NOTE | 2022-08-22 14:31 | P.PN ---
Subjective Progress Note Date: 08/22/22 Principal diagnosis: Bilateral heel wound Patient is 86-year male with a past medical history significant for hypertension end-stage renal disease on peritoneal dialysis, patient noticed to be in third-degree heart block and did have a transvenous pacer placement notice d to have a bilateral heel wound and considered to be high risk of infection. On today's evaluation that is 08/22/2022 the patient continues to be afebrile, the patient is hemodynamically stable, the patient is breathing comfortably on 2 L nasal cannula oxygen, the patient denies any chest pain , the patient denies any worsening cough or sputum production no abdominal pain and no diarrhea Objective - Vital Signs Vital signs: Vital Signs Temp 97.8 F 08/22/22 12:00 Pulse 55 L 08/22/22 12:00 Resp 24 08/22/22 12:00 BP 169/66 08/22/22 12:00 Pulse Ox 94 L 08/22/22 12:00 FiO2 Intake & Output 08/21/22 08/22/22 08/22/22 18:59 06:59 18:59 Intake Total 445 20 150 Output Total 0 0 0 Balance 445 20 150 Weight 81 kg 81 kg Intake: IV 90 20 50 Invasive Line 4 20 10 Invasive Line 5 20 10 cefTRIAXone 2 gm In 50 50 Sodium Chloride 0.9% 50 ml @ 100 mls/hr IVPB Q24HR [facility] Rx#:[id number] Intake, IV Titration 100 Amount Sodium Chloride 0.9% 1, 100 000 ml @ 50 mls/hr IV . Q20H [facility] Rx#:[id number] Oral 355 Output: Urine 0 0 0 Stool 0 Other: # Voids 0 # Bowel Movements 0 - Exam GENERAL DESCRIPTION: An elderly male lying in bed in no distress RESPIRATORY SYSTEM: Unlabored breathing , decreased breath sounds at bases HEART: S1 S2 regular rate and rhythm , ABDOMEN: Soft , no tenderness EXTREMITIES: Bilateral heel unstageable pressure ulcer with no evidence of any cellulitis right greater than left - Labs CBC & Chem 7: 08/21/22 07:05 08/21/22 07:05 Labs: Microbiology - Last 24 Hours (Table) 08/18/22 11:09 Blood Culture - Preliminary Blood No Growth after 96 hours 08/18/22 11:02 Blood Culture - Preliminary Blood No Growth after 96 hours 08/19/22 01:00 Gram Stain - Preliminary Peritoneal Fluid Body Fluid Culture - Preliminary Assessment and Plan (1) Healing wound present on both lower extremities Current Visit: Yes Status: Acute Code(s): [id number] - SNOMED Code(s): 209705674 Plan: 1patient presented to hospital with syncopal episode and has been noticed to be in third-degree heart block and the patient did require temporary transvenous pacer placement and cardiology planning for permanent pacemaker placement patient noticed to have a deep tissue injury to bilateral heel area and concern for possible high risk for infection hence infectious disease was consulted patient is currently not running any fever did have mild elevated white count patient did have bilateral heel pressure injury however there is no evidence of any cellulitis fluctuation or any drainage, patient did have a multiple bruises to the skin keeping in mind his multiple comorbidities and overall clinical condition patient will be high risk for infection if the permanent pacemaker ,the patient blood cultures remains to be negative patient should be able to get his permanent pacemaker 2-for now local care to bilateral heel with heel protectors to keep the area of the pressure keep it dry and there is no need for any systemic antibiotics or local cream to bilateral heel area, discontinue the medahoney 3-patient did have mildly elevated pro calcitonin chest x-ray with some infilt rate which I think is mostly fluid pneumonia not entirely excluded sputum culture have been requested but not collected, patient to continue with Rocephin 2 g daily Time with Patient: Less than 30
--- NOTE | 2022-08-22 17:47 | PN ---
PROGRESS NOTE SUBJECTIVE: Mr. Montesinos is a gentleman with end-stage renal disease, on peritoneal dialysis; third- degree heart block, has a screw-in pacemaker lead externalized. He is going for a permanent pacemaker hopefully today if the schedule permits, and Dr. Best will perform the procedure. The patient is aware of the risks, benefits, and options. He is on a paced rhythm at 55. OBJECTIVE: VITAL SIGNS: Stable. HEART: S1 and S2 heard normally. Short systolic murmur noted. LUNGS: Reveal bilateral air entry. ABDOMEN: Soft. EXTREMITIES: Lower extremities reveal diminished pulses. CENTRAL NERVOUS SYSTEM: Grossly, no focal deficits. PLAN: For a permanent dual-chamber pacemaker today by Dr. Best. MMODL / IJN: [id number] /
[2022-08-23] MEDS: DIALYSIS (PERIT 2.5%) 2,000 ML 50 G/2,000 ML BAG INTRAPERIT SCH ×5 (00:15→23:50)
[2022-08-23] MEDS: HEPARIN SODIUM,PORCINE/PF 5,000 UNIT/0.5 ML SYRINGE SQ SCH ×4 (01:17→23:33)
[2022-08-23] MEDS ORDERED: ceFAZolin 1,000 MG in SODIUM CHLORIDE 0.9% IRRIG BTL 250 ML IRRIGATION ONE (07:45)
[2022-08-23] MEDS: PANTOPRAZOLE 40 MG TABLET PO SCH ×3 (09:30→09:33)
[2022-08-23] MEDS: amLODIPine 5 MG TAB PO SCH (09:31)
--- NOTE | 2022-08-23 09:31 | P.PN ---
Subjective Patient is seen for follow-up for end-stage renal disease. Currently maintained on peritoneal dialysis. Patient was admitted with episode of unresponsiveness with complete heart block. Status post temporary pacemaker placement. Patient had only 100 mL of UF with last 2 exchanges. He was complaining of constipation. Scheduled for for permanent pacemaker today Objective - Vital Signs Vital signs: Vital Signs Temp 97.8 F 08/23/22 06:56 Pulse 58 L 08/23/22 06:56 Resp 21 08/23/22 06:56 BP 170/82 08/23/22 06:56 Pulse Ox 93 L 08/23/22 06:56 FiO2 Intake & Output 08/22/22 08/23/22 08/23/22 18:59 06:59 18:59 Intake Total 150 Output Total 0 0 Balance 150 0 Weight 81 kg 80.5 kg Intake: IV 50 cefTRIAXone 2 gm In 50 Sodium Chloride 0.9% 50 ml @ 100 mls/hr IVPB Q24HR [facility] Rx#:[id number] Intake, IV Titration 100 Amount Sodium Chloride 0.9% 1, 100 000 ml @ 50 mls/hr IV . Q20H [facility] Rx#:[id number] Output: Urine 0 0 Other: # Bowel Movements 1 - Exam Sleeping but arousable, comfortable, no acute distress Examination of the heart S1 and S2 Examination of lungs decreased breath sounds at the bases Abdomen is soft distended nontender Examination of the lower extremities shows 2+ edema - Labs CBC & Chem 7: 08/21/22 07:05 08/21/22 07:05 Labs: Microbiology - Last 24 Hours (Table) 08/18/22 11:09 Blood Culture - Preliminary Blood No Growth after 96 hours 08/18/22 11:02 Blood Culture - Preliminary Blood No Growth after 96 hours 08/19/22 01:00 Gram Stain - Preliminary Peritoneal Fluid Body Fluid Culture - Preliminary Assessment and Plan Assessment: 1. End-stage renal disease currently on peritoneal dialysis with temporary hemodialysis while patient was in rehab. Status post new left IJ catheter placement, however this has not been functioning well and patient is tolerating PD fairly well. Left IJ permacath was removed on 08/20/2022 2. Complete heart block status post temporary pacemaker placement, awaiting permanent pacemaker placement 3. Bilateral feet ulcers status post antibiotics 4. 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 Patient is maintained on Tums however I do not believe he is taking it as a phosphate binder. Calcium was mildly elevated at 10.2 it is currently 9.5 this morning. Phosphorus 3.8. I will check PTH level 5. Anemia of chronic disease 6. Volume overload with significant third spacing, low albumin Plan: Recommend to discontinue IV fluids Treat constipation Continue current PD exchanges
[2022-08-23] MEDS: hydrALAZINE HCL 50 MG TAB PO SCH ×2 (09:32→20:20)
[2022-08-23] MEDS: TAMSULOSIN 0.4 MG CAP.ER.24H PO SCH ×2 (09:32→20:20)
[2022-08-23] MEDS: allopurinoL 100 MG TAB PO SCH (09:33)
[2022-08-23] MEDS: ANAGRELIDE HCL 1 MG PO SCH ×2 (09:33→20:20)
[2022-08-23] MEDS: LACTULOSE 20 GM/30 ML CUP PO SCH ×2 (09:36→20:20)
[2022-08-23] MEDS: ACETAMINOPHEN TAB 325 MG TAB PO PRN (09:36)
[2022-08-23] MEDS: LIDOCAINE 5% PATCH TOPICAL SCH (09:37)
--- NOTE | 2022-08-23 12:48 | P.PCN ---
Description of Procedure: PROCEDURES PERFORMED: Exchange of externalized pacemaker generator INDICATION: Third-degree heart block PROCEDURE: After the risks, benefits and alternatives of the above mentioned procedure explained in detail with the patient, informed consent was obtained. Patient was taken to the catheterization lab and prepped and draped in usual fashion. Initial consideration of placing a permanent pacemaker however patient recently had a left subclavian dialysis catheter which was removed 3 days ago. There is still skin breakdown and erythema around the site and therefore given increased risk of infection permanent pacemaker was felt best performed in a staged fashion in the next 1-2 weeks once left subclavian site healed. Theref ore the right externalized pacemaker wire was disconnected from the temporary pacing wires and placed in a permanent pacemaker generator can. The generator was sutured in place over the skin and sterile dressing applied. FINAL IMPRESSION: 1. S/p exchange of externalized permanent pacemaker generator PLAN: 1. The externalized permanent pacemaker wire has been sutured in place and appears stable. Patient can be discharged home or to [facility] with outpt followup in office in 1 week. No dressing change other than by myself of the right subclavian site. Permanent pacemaker to be placed in next 1-2 weeks once left subclavian site healed.
--- NOTE | 2022-08-23 13:10 | P.PN ---
Subjective Progress Note Date: 08/23/22 Principal diagnosis: Bilateral heel wound Patient is 86-year male with a past medical history significant for hypertension end-stage renal disease on peritoneal dialysis, patient noticed to be in third-degree heart block and did have a transvenous pacer placement notice d to have a bilateral heel wound and considered to be high risk of infection. On today's evaluation that is 08/23/2022 the patient remains to be afebrile, the patient is hemodynamically stable, the patient is breathing comfortably on room air, the patient denies any chest pain , the patient denies any worsening cough or sputum production , the patient denies having any nausea no vomiting no abdominal pain and no diarrhea Objective - Vital Signs Vital signs: Vital Signs Temp 98.2 F 08/23/22 08:00 Pulse 56 L 08/23/22 10:00 Resp 17 08/23/22 10:00 BP 164/75 08/23/22 10:00 Pulse Ox 90 L 08/23/22 10:00 FiO2 Intake & Output 08/22/22 08/23/22 08/23/22 18:59 06:59 18:59 Intake Total 150 Output Total 0 0 Balance 150 0 Weight 81 kg 80.5 kg Intake: IV 50 cefTRIAXone 2 gm In 50 Sodium Chloride 0.9% 50 ml @ 100 mls/hr IVPB Q24HR [facility] Rx#:[id number] Intake, IV Titration 100 Amount Sodium Chloride 0.9% 1, 100 000 ml @ 50 mls/hr IV . Q20H [facility] Rx#:[id number] Output: Urine 0 0 Other: # Bowel Movements 1 - Exam GENERAL DESCRIPTION: An elderly male lying in bed in no distress RESPIRATORY SYSTEM: Unlabored breathing , decreased breath sounds at bases HEART: S1 S2 regular rate and rhythm , ABDOMEN: Soft , no tenderness EXTREMITIES: Bilateral heel unstageable pressure ulcer with no evidence of any cellulitis right greater than left - Labs CBC & Chem 7: 08/21/22 07:05 08/21/22 07:05 Labs: Microbiology - Last 24 Hours (Table) 08/19/22 01:00 Gram Stain - Final Peritoneal Fluid Body Fluid Culture - Final 08/18/22 11:09 Blood Culture - Preliminary Blood No Growth after 96 hours 08/18/22 11:02 Blood Culture - Preliminary Blood No Growth after 96 hours Assessment and Plan (1) Healing wound present on both lower extremities Current Visit: Yes Status: Acute Code(s): GIC1014 - SNOMED Code(s): 236550211 Plan: 1patient presented to hospital with syncopal episode and has been noticed to be in third-degree heart block and the patient did require temporary transvenous pacer placement and cardiology planning for permanent pacemaker placement patient noticed to have a deep tissue injury to bilateral heel area and concern for possible high risk for infection hence infectious disease was consulted patient is currently not running any fever did have mild elevated white count patient did have bilateral heel pressure injury however there is no evidence of any cellulitis fluctuation or any drainage, patient did have a multiple bruises to the skin keeping in mind his multiple comorbidities and overall clinical condition patient will be high risk for infection if the permanent pacemaker , the patient blood cultures remains to be negative patient did have a change of the temporary pacemaker wire and plan for possible permanent pacemaker on the left side next week as per cardiology note 2- local care to bilateral heel with heel protectors to keep the area of the pressure keep it dry and there is no need for any systemic antibiotics or local cream to bilateral heel area, 3-patient did have mildly elevated pro calcitonin chest x-ray with some infiltrate which I think is mostly fluid pneumonia not entirely excluded sputum culture have been requested but not collected, patient seemed to have her clinical improvement with Rocephin 2 g daily, short course of oral Ceftin on discharge Time with Patient: Less than 30
--- NOTE | 2022-08-23 13:41 | PN ---
PROGRESS NOTE SUBJECTIVE: Mr. Montesinos is in a complete heart block with a ventricular pacemaker that is temporary with a screw-in lead but externalized. He is doing well, hemodynamically stable, neurologically intact. This patient has end-stage renal disease, on peritoneal dialysis. OBJECTIVE: VITAL SIGNS: Stable. Blood pressure is 110/70. Pulse rate 55, paced. HEART: S1 and S2 heard normally. Short systolic murmur. LUNGS: Reveal improved air entry. ABDOMEN: Soft. EXTREMITIES: Lower extremities reveal diminished pulses. CENTRAL NERVOUS SYSTEM: Grossly, no focal deficits. PLAN: The patient is going for a permanent dual-chamber pacemaker from left infraclavicular approach by Dr. Best. MMODL / IJN: [id number] /
--- NOTE | 2022-08-23 17:16 | P.PN ---
Subjective Progress Note Date: 08/23/22 86-year-old male with history of ESRD on peritoneal dialysis, recently started on intermittent hemodialysis, chronic diastolic failure hypertension, gout presented after a syncopal episode. In the ER, patient was bradycardic up to 25, respiratory rate 18, saturating at 96% on room air, temperature 96.6, no blood pressure recorded in the chart. EKG shows third-degree AV block. Chest x-ray shows bilateral vascular congestion. On further discussion with ER attending, patient was given a cocktail for hyperkalemia after being approved by cardiology. During that time, Patient had a long pause, and CPR was initiated. Patient however woke up within 20 seconds, and was not intubated. He did receive one time epinephrine. Patient was taken directly to supervisor labor gang for temporary pacemaker. Patient to be admitted to medical ICU. Lab work at the time of admission showed WBC 10.6, hemoglobin 10, MCV 103, platelet 444 sodium of 134, chloride 97, creatinine 5.24, magnesium 2.0, potassium 4.3, TSH 0.766. Patient is now status post insertion of pacemaker lead with externalized generator. Patient also has bilateral heel wounds. ID has been consulted to rule out any infection. Attempt was made for permanent pacemaker placement today but there was skin breakdown and erythema around the site of the left subclavian dialysis catheter which was removed 3 days ago, decision made to hold permanent pacemaker placement for 1-2 weeks until the left subclavian site is healed. Patient seen and examined at bedside. No acute events overnight. He otherwise has no other complaints. General: nontoxic, no distress, appears at stated age Derm: warm, dry, PD site and chest wall catheter site has a dressing, appears clean, dry, intact, bilateral heel wounds covered in dressing, has pacemaker with external generator. Head: atraumatic, normocephalic, symmetric Eyes: EOMI, no lid lag, anicteric sclera ENT: Nose and ears atraumatic Neck: No thyromegaly, supple Mouth: no lip lesion, mucus membranes moist Cardiovascular: Bradycardic, no murmur, no edema Lungs: clear to auscultation bilateral, no rhonchi, no rales, no wheeze, no accessory muscle use, supplemental oxygen Ext: no gross muscle atrophy, muscle strength muscle strength 5 out of 5 in all 4 extremities, no contractures Psych: Alert, oriented, appropriate affect Third-degree AV block status post pacemaker with external generator Cardiac arrest requiring CPR 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 I have reviewed the following career consultant notes: Procedure note 08/23, skin breakdown and erythema around the site of the left subclavian dialysis catheter which was removed 3 days ago, decision made to hold permanent pacemaker placement for 1-2 weeks until the left subclavian site is healed. Nephrology note 08/23, continue PD, discontinue IVF, treat constipation I have reviewed the results of the following tests: Blood cultures are prelim negative at 120 H. I have ordered the following tests: None. I have discussed the care of this patient with the following independent historian: None. I have independently interpreted the following test below: None. I have discussed the management of this patient with the following physician: None. This patient has a moderate risk of morbidity due to the following reasons: Patient has an acute diagnosis of syncope that poses a threat to life or bodily function. This was complicated with cardiac arrest and ROSC. He has been diagnosed with third degree heart block and underwent temporary pacemaker. There are plans to for permenant pacemaker once infection is ruled out. Infectious cause thought to be bilateral heel wounds. Blood cultures are prelim negative at 120H. He is on Rocephin empirically. Appears to be cleared by ID for permanent pacemaker placement. Pacemaker placement attempted today but decision made to hold permanent pacemaker placement for 1-2 weeks until the left subclavian site is healed. He is cleared from a cardiology perspective for discharge. However, he is unable to take care of himself at home and will likely need placement. Case management is onboard. DVT ppx: SQ Heparin Code status: FULL CODE Objective - Vital Signs Vital signs: Vital Signs Temp 98.1 F 08/23/22 16:00 Pulse 70 08/23/22 16:00 Resp 17 08/23/22 16:00 BP 149/107 08/23/22 16:00 Pulse Ox 92 L 08/23/22 16:00 FiO2 Intake & Output 08/22/22 08/23/22 08/23/22 18:59 06:59 18:59 Intake Total 150 Output Total 0 0 0 Balance 150 0 0 Weight 81 kg 80.5 kg Intake: IV 50 cefTRIAXone 2 gm In 50 Sodium Chloride 0.9% 50 ml @ 100 mls/hr IVPB Q24HR [facility] Rx#:[id number] Intake, IV Titration 100 Amount Sodium Chloride 0.9% 1, 100 000 ml @ 50 mls/hr IV . Q20H [facility] Rx#:[id number] Output: Urine 0 0 0 Other: # Bowel Movements 1 - Labs CBC & Chem 7: 08/21/22 07:05 08/21/22 07:05 Labs: Microbiology - Last 24 Hours (Table) 08/18/22 11:09 Blood Culture - Preliminary Blood No Growth after 120 hours 08/18/22 11:02 Blood Culture - Preliminary Blood No Growth after 120 hours 08/19/22 01:00 Gram Stain - Final Peritoneal Fluid Body Fluid Culture - Final
[2022-08-24] MEDS: DIALYSIS (PERIT 2.5%) 2,000 ML 50 G/2,000 ML BAG INTRAPERIT SCH ×4 (05:48→23:35)
[2022-08-24] MEDS: ACETAMINOPHEN TAB 325 MG TAB PO PRN ×3 (06:08→23:25)
[2022-08-24] MEDS: HEPARIN SODIUM,PORCINE/PF 5,000 UNIT/0.5 ML SYRINGE SQ SCH ×3 (08:41→23:22)
[2022-08-24] MEDS: TAMSULOSIN 0.4 MG CAP.ER.24H PO SCH ×2 (08:41→20:21)
[2022-08-24] MEDS: hydrALAZINE HCL 50 MG TAB PO SCH ×2 (08:41→20:21)
[2022-08-24] MEDS: allopurinoL 100 MG TAB PO SCH (08:41)
[2022-08-24] MEDS: LACTULOSE 20 GM/30 ML CUP PO SCH ×2 (08:41→20:23)
[2022-08-24] MEDS: amLODIPine 5 MG TAB PO SCH (08:41)
[2022-08-24] MEDS: LIDOCAINE 5% PATCH TOPICAL SCH (08:42)
[2022-08-24] MEDS: ANAGRELIDE HCL 1 MG PO SCH ×2 (08:51→20:21)
--- NOTE | 2022-08-24 11:31 | P.PN ---
Subjective Patient is seen for follow-up for end-stage renal disease. Currently maintained on peritoneal dialysis. Patient was admitted with episode of unresponsiveness with complete heart block. Status post temporary pacemaker placement. Significant improvement in UF with treatment of constipation status post permanent pacemaker placement on 08/23/2022 Objective - Vital Signs Vital signs: Vital Signs Temp 97.9 F 08/24/22 08:35 Pulse 75 08/24/22 10:27 Resp 16 08/24/22 10:27 BP 143/50 08/24/22 08:35 Pulse Ox 96 08/24/22 08:35 FiO2 Intake & Output 08/23/22 08/24/22 08/24/22 18:59 06:59 18:59 Intake Total 240 118 Output Total 0 0 Balance 0 240 118 Weight 80.5 kg Intake: Oral 240 118 Output: Urine 0 0 Other: Voiding Method Urinal Urinal # Voids 0 # Bowel Movements 1 - Exam Sleeping but arousable, comfortable, no acute distress Examination of the heart S1 and S2 Examination of lungs decreased breath sounds at the bases Abdomen is soft distended nontender Examination of the lower extremities shows 2+ edema - Labs CBC & Chem 7: 08/21/22 07:05 08/21/22 07:05 Labs: Microbiology - Last 24 Hours (Table) 08/18/22 11:09 Blood Culture - Preliminary Blood No Growth after 120 hours 08/18/22 11:02 Blood Culture - Preliminary Blood No Growth after 120 hours 08/19/22 01:00 Gram Stain - Final Peritoneal Fluid Body Fluid Culture - Final Assessment and Plan Assessment: 1. End-stage renal disease currently on peritoneal dialysis with temporary hemodialysis while patient was in rehab. Status post new left IJ catheter placement, however this has not been functioning well and patient is tolerating PD fairly well. Left IJ permacath was removed on 08/20/2022 2. Complete heart block status post temporary pacemaker placement, awaiting permanent pacemaker placement 3. Bilateral feet ulcers status post antibiotics 4. 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 Patient is maintained on Tums however I do not believe he is taking it as a phosphate binder. Calcium was mildly elevated at 10.2 it is currently 9.5 this morning. Phosphorus 3.8. I will check PTH level 5. Anemia of chronic disease 6. Volume overload with significant third spacing, low albumin Plan: Continue current PD exchanges
--- NOTE | 2022-08-24 11:45 | P.PN ---
Subjective Progress Note Date: 08/24/22 86-year-old male with history of ESRD on peritoneal dialysis, recently started on intermittent hemodialysis, chronic diastolic failure hypertension, gout presented after a syncopal episode. In the ER, patient was bradycardic up to 25, respiratory rate 18, saturating at 96% on room air, temperature 96.6, no blood pressure recorded in the chart. EKG shows third-degree AV block. Chest x-ray shows bilateral vascular congestion. On further discussion with ER attending, patient was given a cocktail for hyperkalemia after being approved by cardiology. During that time, Patient had a long pause, and CPR was initiated. Patient however woke up within 20 seconds, and was not intubated. He did receive one time epinephrine. Patient was taken directly to agriculture laboratory technician for temporary pacemaker. Patient to be admitted to medical ICU. Lab work at the time of admission showed WBC 10.6, hemoglobin 10, MCV 103, platelet 444 sodium of 134, chloride 97, creatinine 5.24, magnesium 2.0, potassium 4.3, TSH 0.766. Patient is now status post insertion of pacemaker lead with externalized generator. Patient also has bilateral heel wounds. ID has been consulted to rule out any infection. Attempt was made for permanent pacemaker placement today but there was skin breakdown and erythema around the site of the left subclavian dialysis catheter which was removed 4 days ago, decision made to hold permanent pacemaker placement for 1-2 weeks until the left subclavian site is healed. Patient seen and examined at bedside. No acute events overnight. He otherwise has no other complaints. General: nontoxic, no distress, appears at stated age Derm: warm, dry, bilateral heel wounds covered in dressing, has pacemaker with external generator. Head: atraumatic, normocephalic, symmetric Eyes: EOMI, no lid lag, anicteric sclera ENT: Nose and ears atraumatic Neck: No thyromegaly, supple Mouth: no lip lesion, mucus membranes moist Cardiovascular: Bradycardic, no murmur, no edema Lungs: clear to auscultation bilateral, no rhonchi, no rales, no wheeze, no accessory muscle use, supplemental oxygen Ext: no gross muscle atrophy, muscle strength muscle strength 5 out of 5 in all 4 extremities, no contractures Psych: Alert, oriented, appropriate affect Third-degree AV block status post pacemaker with external generator Cardiac arrest requiring CPR 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 I have reviewed the following consultant teacher notes: None. I have reviewed the results of the following tests: None. I have ordered the following tests: BMP ordered for tomorrow morning. I have discussed the care of this patient with the following independent historian: None. I have independently interpreted the following test below: None. I have discussed the management of this patient with the following physician: None. This patient has a moderate risk of morbidity due to the following reasons: Patient has an acute diagnosis of syncope that poses a threat to life or bodily function. This was complicated with cardiac arrest and ROSC. He has been diagnosed with third degree heart block and underwent temporary pacemaker. There were plans for permanent pacemaker once infection was ruled out however decision made to hold permanent pacemaker placement for 1-2 weeks until the left subclavian site is healed. He is cleared from a cardiology perspective for discharge. However, he is unable to take care of himself at home and will likely need placement. Case management is onboard. DVT ppx: SQ Heparin Code status: FULL CODE Objective - Vital Signs Vital signs: Vital Signs Temp 97.9 F 08/24/22 08:35 Pulse 75 08/24/22 10:27 Resp 16 08/24/22 10:27 BP 143/50 08/24/22 08:35 Pulse Ox 96 08/24/22 08:35 FiO2 Intake & Output 08/23/22 08/24/22 08/24/22 18:59 06:59 18:59 Intake Total 240 118 Output Total 0 0 Balance 0 240 118 Weight 80.5 kg Intake: Oral 240 118 Output: Urine 0 0 Other: Voiding Method Urinal Urinal # Voids 0 # Bowel Movements 1 - Labs CBC & Chem 7: 08/21/22 07:05 08/21/22 07:05 Labs: Microbiology - Last 24 Hours (Table) 08/18/22 11:09 Blood Culture - Preliminary Blood No Growth after 120 hours 08/18/22 11:02 Blood Culture - Preliminary Blood No Growth after 120 hours 08/19/22 01:00 Gram Stain - Final Peritoneal Fluid Body Fluid Culture - Final
--- NOTE | 2022-08-24 15:51 | P.PN ---
Subjective Progress Note Date: 08/24/22 History of Present Illness: This is a 86-year-old male with significant past medical history of BPH, hyp ertension, end-stage renal disease on peritoneal dialysis who had initially presented to the hospital with fatigue, weakness, shortness of breath and was found to be in extreme bradycardia with heart rates 15-20 years and he had a syncopal event in the emergency room with asystole. He underwent temporary transvenous pacemaker due to complete heart block. Echocardiogram revealed EF 4550% with moderate to severe mitral regurgitation. He ultimately underwent external pacemaker placement 08/23/22. 08/24 He is doing well, out of bed in chair. Right arm is in sling, he is struggling to keep right arm still. He complains of feet aching. Denies any chest pain, pressure, shortness of breath, dizziness, or syncope. PHYSICAL EXAMINATION: This is a 86-year-old male in no apparent distress at the time of my examination. HEENT: Head is atraumatic, normocephalic. Pupils are equal, round. Sclerae anicteric. Conjunctivae are clear. Mucous membranes of the mouth are moist. Neck is supple. There is no jugular venous distention. No carotid bruit is heard. CHEST EXAMINATION: Lungs are clear to auscultation. No chest wall tenderness is noted on palpation or with deep breathing. Right wall pacemaker dressing in clean, dry, intact. HEART EXAMINATION: Heart regular rate and rhythm. S1, S2 heard. No murmurs, gallops or rub. ABDOMEN: Soft, nontender. Bowel sounds are heard. No organomegaly noted. EXTREMITIES: 2+ peripheral pulses with no evidence of peripheral edema and no calf tenderness noted. NEUROLOGIC EXAMINATION: Patient is awake, alert and oriented x3. IMPRESSION AND PLAN: Complete heart block S/p external pacemaker placement Hypertension End-stage renal disease on peritoneal dialysis Bradycardia PLAN: S/p external pacemaker placement, reviewed pacemaker precautions with pat ient and family as well as infection control. No dressing changes except by Dr. Best, he will need a dressing change next week with Dr. Best. Patient will likely benefit from WILL. Appreciate case management assistance in this matter. When discharged he will need to be on Keflex for infection prevention. Continue Rocephin at this time. Anticipate internal pacemaker placement in 1-2 weeks. We will follow. I am dictating on behalf of Dr. Bran Best's history/physical and assessm ent/plan. Objective - Vital Signs Vital signs: Vital Signs Temp 97.8 F 08/24/22 12:40 Pulse 76 08/24/22 12:40 Resp 18 08/24/22 12:40 BP 122/51 08/24/22 12:40 Pulse Ox 95 08/24/22 12:40 FiO2 Intake & Output 08/23/22 08/24/22 08/24/22 18:59 06:59 18:59 Intake Total 240 318 Output Total 0 0 0 Balance 0 240 318 Weight 80.5 kg Intake: Oral 240 318 Output: Gastric Drainage 0 Urine 0 0 0 Stool 0 Urine/Stool Mix 0 Emesis 0 Other 0 Other: Voiding Method Urinal Urinal # Voids 0 0 # Bowel Movements 1 2 - Labs CBC & Chem 7: 08/21/22 07:05 08/21/22 07:05 Labs: Microbiology - Last 24 Hours (Table) 08/18/22 11:09 Blood Culture - Final Blood No Growth after 144 hours 08/18/22 11:02 Blood Culture - Final Blood No Growth after 144 hours
[2022-08-25] MEDS: DIALYSIS (PERIT 2.5%) 2,000 ML 50 G/2,000 ML BAG INTRAPERIT SCH ×3 (05:42→18:06)
[2022-08-25] MEDS: PANTOPRAZOLE 40 MG TABLET PO SCH (05:42)
[2022-08-25] MEDS: allopurinoL 100 MG TAB PO SCH (08:29)
[2022-08-25] MEDS: hydrALAZINE HCL 50 MG TAB PO SCH ×2 (08:29→20:55)
[2022-08-25] MEDS: amLODIPine 5 MG TAB PO SCH (08:29)
[2022-08-25] MEDS: TAMSULOSIN 0.4 MG CAP.ER.24H PO SCH ×2 (08:29→20:55)
[2022-08-25] MEDS: LIDOCAINE 5% PATCH TOPICAL SCH (08:30)
[2022-08-25] MEDS: ANAGRELIDE HCL 1 MG PO SCH ×2 (08:33→20:55)
[2022-08-25] MEDS: HEPARIN SODIUM,PORCINE/PF 5,000 UNIT/0.5 ML SYRINGE SQ SCH ×2 (08:34→17:19)
[2022-08-25] MEDS: ACETAMINOPHEN TAB 325 MG TAB PO PRN (08:43)
--- NOTE | 2022-08-25 10:24 | P.PN ---
Subjective Patient is seen for follow-up for end-stage renal disease. Currently maintained on peritoneal dialysis. Patient was admitted with episode of unresponsiveness with complete heart block. Status post temporary pacemaker placement. Significant improvement in UF with treatment of constipation status post exchange of externalized permanent pacemaker generator on 08/23/2022 Objective - Vital Signs Vital signs: Vital Signs Temp 97.4 F L 08/25/22 08:25 Pulse 69 08/25/22 09:27 Resp 18 08/25/22 09:27 BP 163/84 08/25/22 08:25 Pulse Ox 96 08/25/22 09:26 FiO2 Intake & Output 08/24/22 08/25/22 08/25/22 18:59 06:59 18:59 Intake Total 438 485 Output Total 0 Balance 438 485 Intake: Oral 438 485 Output: Gastric Drainage 0 Urine 0 Stool 0 Urine/Stool Mix 0 Emesis 0 Other 0 Other: Voiding Method Urinal Urinal Urinal # Voids 0 # Bowel Movements 1 1 - Exam Sleeping but arousable, comfortable, no acute distress Examination of the heart S1 and S2 Examination of lungs decreased breath sounds at the bases Abdomen is soft distended nontender Examination of the lower extremities shows 2+ edema - Labs CBC & Chem 7: 08/21/22 07:05 08/21/22 07:05 Labs: Microbiology - Last 24 Hours (Table) 08/18/22 11:09 Blood Culture - Final Blood No Growth after 144 hours 08/18/22 11:02 Blood Culture - Final Blood No Growth after 144 hours Assessment and Plan Assessment: 1. End-stage renal disease currently on peritoneal dialysis with temporary hemodialysis while patient was in rehab. Status post new left IJ catheter placement, however this has not been functioning well and patient is tolerating PD fairly well. Left IJ permacath was removed on 08/20/2022 2. Complete heart block status post temporary pacemaker placement, awaiting permanent pacemaker placement 3. Bilateral feet ulcers status post antibiotics 4. 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 Patient is maintained on Tums however I do not believe he is taking it as a phosphate binder. Calcium was mildly elevated at 10.2 it is currently 9.5 this morning. Phosphorus 3.8. I will check PTH level 5. Anemia of chronic disease 6. Volume overload with significant third spacing, low albumin, improved Plan: Continue current PD exchanges Add lisinopril as blood pressure is elevated
--- NOTE | 2022-08-25 10:47 | P.PN ---
Subjective Progress Note Date: 08/24/22 Principal diagnosis: Bilateral heel wound Patient is 86-year male with a past medical history significant for hypertension end-stage renal disease on peritoneal dialysis, patient noticed to be in third-degree heart block and did have a transvenous pacer placement notice d to have a bilateral heel wound and considered to be high risk of infection. On today's evaluation that is 08/24/2022 the patient continues to be afebrile, the patient is hemodynamically stable, the patient is breathing comfortably on room air, the patient denies any chest pain , the patient did have occasional dry cough with no worsening, the patient denies having any nausea no vomiting no abdominal pain and no diarrhea Objective - Vital Signs Vital signs: Vital Signs Temp 97.8 F 08/24/22 12:40 Pulse 76 08/24/22 12:40 Resp 18 08/24/22 12:40 BP 122/51 08/24/22 12:40 Pulse Ox 95 08/24/22 12:40 FiO2 Intake & Output 08/23/22 08/24/22 08/24/22 18:59 06:59 18:59 Intake Total 240 118 Output Total 0 0 0 Balance 0 240 118 Weight 80.5 kg Intake: Oral 240 118 Output: Gastric Drainage 0 Urine 0 0 0 Stool 0 Urine/Stool Mix 0 Emesis 0 Other 0 Other: Voiding Method Urinal Urinal # Voids 0 0 # Bowel Movements 1 0 - Exam GENERAL DESCRIPTION: An elderly male lying in bed in no distress RESPIRATORY SYSTEM: Unlabored breathing , decreased breath sounds at bases HEART: S1 S2 regular rate and rhythm , ABDOMEN: Soft , no tenderness EXTREMITIES: Bilateral heel unstageable pressure ulcer with no evidence of any cellulitis right greater than left - Labs CBC & Chem 7: 08/21/22 07:05 08/21/22 07:05 Labs: Microbiology - Last 24 Hours (Table) 08/18/22 11:09 Blood Culture - Final Blood No Growth after 144 hours 08/18/22 11:02 Blood Culture - Final Blood No Growth after 144 hours 08/19/22 01:00 Gram Stain - Final Peritoneal Fluid Body Fluid Culture - Final Assessment and Plan (1) Healing wound present on both lower extremities Current Visit: Yes Status: Acute Code(s): [id number] - SNOMED Code(s): 851231795 Plan: 1patient presented to hospital with syncopal episode and has been noticed to be in third-degree heart block and the patient did require temporary transvenous pacer placement and cardiology planning for permanent pacemaker placement patient noticed to have a deep tissue injury to bilateral heel area and concern for possible high risk for infection hence infectious disease was consulted patient is currently not running any fever did have mild elevated white count patient did have bilateral heel pressure injury however there is no evidence of any cellulitis fluctuation or any drainage, patient did have a multiple bruises to the skin keeping in mind his multiple comorbidities and overall clinical con dition patient will be high risk for infection if the permanent pacemaker ,the patient blood cultures remains to be negative patient did have a change of the temporary pacemaker wire and plan for possible permanent pacemaker on the left side next week as per cardiology note 2- local care to bilateral heel with heel protectors to keep the area of the pressure keep it dry and there is no need for any systemic antibiotics or local cream to bilateral heel area, 3-patient did have mildly elevated pro calcitonin chest x-ray with some infiltrate which I think is mostly fluid pneumonia not entirely excluded sputum culture have been requested but not collected, patient slowly clinically improving. To continue with Rocephin short course of Ceftin on discharge family/son at the bedside questions and concerns were answered Time with Patient: Less than 30
[2022-08-25] MEDS: LACTULOSE 20 GM/30 ML CUP PO SCH ×2 (10:54→20:02)
[2022-08-25] MEDS: lisinopriL 5 MG TAB PO SCH (10:55)
[2022-08-25 11:41] LABS: Anisocytosis Slight; HCT 32.1 % (39.0-53.0); HGB 10.2 gm/dL (13.0-17.5); Hypochromasia Slight; MCH 32.6 pg (25.0-35.0); MCHC 31.8 g/dL (31.0-37.0); MCV 102.5 fL (80.0-100.0); Macrocytosis Moderate; Platelet Count 298 k/uL (150-450); RBC 3.13 m/uL (4.30-5.90); RDW 16.2 % (11.5-15.5); WBC 8.3 k/uL (3.8-10.6)
[2022-08-25 11:45] LABS: Calcium 9.9 mg/dL (8.4-10.2); Potassium 4.3 mmol/L (3.5-5.1)
--- NOTE | 2022-08-25 13:34 | P.PN ---
Subjective Progress Note Date: 08/25/22 History of Present Illness: This is a 86-year-old male with significant past medical history of BPH, hyp ertension, end-stage renal disease on peritoneal dialysis who had initially presented to the hospital with fatigue, weakness, shortness of breath and was found to be in extreme bradycardia with heart rates 15-20 years and he had a syncopal event in the emergency room with asystole. He underwent temporary transvenous pacemaker due to complete heart block. Echocardiogram revealed EF 4550% with moderate to severe mitral regurgitation. He ultimately underwent external pacemaker placement 08/23/22. 08/24 He is doing well, out of bed in chair. Right arm is in sling, he is struggling to keep right arm still. He complains of feet aching. Denies any chest pain, pressure, shortness of breath, dizziness, or syncope. 08/25 Doing well, no changes. Denies chest pain or shortness of breath. Pacer dressing is clean, dry, intact. Still complaining of feet aching, has speciality boots on bilat feet. PHYSICAL EXAMINATION: This is a 86-year-old male in no apparent distress at the time of my examination. HEENT: Head is atraumatic, normocephalic. Pupils are equal, round. Sclerae anicteric. Conjunctivae are clear. Mucous membranes of the mouth are moist. Neck is supple. There is no jugular venous distention. No carotid bruit is heard. CHEST EXAMINATION: Lungs are clear to auscultation. No chest wall tenderness is noted on palpation or with deep breathing. Right wall pacemaker dressing in akin n, dry, intact. HEART EXAMINATION: Heart regular rate and rhythm. S1, S2 heard. No murmurs, gallops or rub. ABDOMEN: Soft, nontender. Bowel sounds are heard. No organomegaly noted. EXTREMITIES: 2+ peripheral pulses with no evidence of peripheral edema and no calf tenderness noted. NEUROLOGIC EXAMINATION: Patient is awake, alert and oriented x3. IMPRESSION AND PLAN: Complete heart block S/p external pacemaker placement Hypertension End-stage renal disease on peritoneal dialysis Bradycardia PLAN: S/p external pacemaker placement. Continue pacemaker precautions. No dressing changes except by Dr. Best, he will need a dressing change next week with Dr. Best. OK to OH from cardiology standpoint. Patient will likely benefit from WILL. Appreciate case management assistance in this matter. Will need Keflex at discharge for infection prophylaxis. OK to continue Rocephin at this time. Anticipate internal pacemaker placement in 1-2 weeks. We will follow. I am dictating on behalf of Dr. Bran Best's history/physical and assessment/plan. Objective - Vital Signs Vital signs: Vital Signs Temp 97.4 F L 08/25/22 08:25 Pulse 69 08/25/22 09:27 Resp 18 08/25/22 09:27 BP 163/84 08/25/22 08:25 Pulse Ox 96 08/25/22 09:26 FiO2 Intake & Output 08/24/22 08/25/22 08/25/22 18:59 06:59 18:59 Intake Total 438 485 Output Total 0 Balance 438 485 Intake: Oral 438 485 Output: Gastric Drainage 0 Urine 0 Stool 0 Urine/Stool Mix 0 Emesis 0 Other 0 Other: Voiding Method Urinal Urinal Urinal # Voids 0 # Bowel Movements 1 1 - Labs CBC & Chem 7: 08/25/22 10:11 08/25/22 10:11 Labs: Microbiology - Last 24 Hours (Table) 08/18/22 11:09 Blood Culture - Final Blood No Growth after 144 hours 08/18/22 11:02 Blood Culture - Final Blood No Growth after 144 hours
--- NOTE | 2022-08-25 13:46 | P.PN ---
Subjective Progress Note Date: 08/25/22 86-year-old male with history of ESRD on peritoneal dialysis, recently started on intermittent hemodialysis, chronic diastolic failure hypertension, gout presented after a syncopal episode. In the ER, patient was bradycardic up to 25, respiratory rate 18, saturating at 96% on room air, temperature 96.6, no blood pressure recorded in the chart. EKG shows third-degree AV block. Chest x-ray shows bilateral vascular congestion. On further discussion with ER attending, patient was given a cocktail for hyperkalemia after being approved by cardiology. During that time, Patient had a long pause, and CPR was initiated. Patient however woke up within 20 seconds, and was not intubated. He did receive one time epinephrine. Patient was taken directly to aquatic laborer for temporary pacemaker. Patient to be admitted to medical ICU. Lab work at the time of admission showed WBC 10.6, hemoglobin 10, MCV 103, platelet 444 sodium of 134, chloride 97, creatinine 5.24, magnesium 2.0, potassium 4.3, TSH 0.766. Patient is now status post insertion of pacemaker lead with externalized generator. Patient also has bilateral heel wounds. ID has been consulted to rule out any infection. Attempt was made for permanent pacemaker placement today but there was skin breakdown and erythema around the site of the left subclavian dialysis catheter which was removed 4 days ago, decision made to hold permanent pacemaker placement for 1-2 weeks until the left subclavian site is healed. Patient seen and examined at bedside. No acute events overnight. He reports neuropathic pain in both of his feet. He was no other complaints. General: nontoxic, no distress, appears at stated age Derm: warm, dry, bilateral heel wounds covered in dressing, has pacemaker with external generator. Head: atraumatic, normocephalic, symmetric Eyes: EOMI, no lid lag, anicteric sclera ENT: Nose and ears atraumatic Neck: No thyromegaly, supple Mouth: no lip lesion, mucus membranes moist Cardiovascular: Bradycardic, no murmur, no edema Lungs: clear to auscultation bilateral, no rhonchi, no rales, no wheeze, no accessory muscle use, supplemental oxygen Ext: no gross muscle atrophy, muscle strength muscle strength 5 out of 5 in all 4 extremities, no contractures Psych: Alert, oriented, appropriate affect Third-degree AV block status post pacemaker with external generator Cardiac arrest requiring CPR 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 I have reviewed the following customer sales consultant notes: Cardiology note 08/25, will need Keflex on discharge, cleared by Cardiology, anticipate internal pacemaker placement in 1-2 weeks. Nephrology note 08/25, continue current PD exchanges, add lisinopril for elevated BP I have reviewed the results of the following tests: CBC shows Hg 10.2 and MCV of 102.5. BMP shows Na 130, Cl 92, BUN 89, Cr 7.30. I have ordered the following tests: BMP ordered for tomorrow morning. I have discussed the care of this patient with the following independent historian: None. I have independently interpreted the following test below: None. I have discussed the management of this patient with the following physician: None. This patient has a moderate risk of morbidity due to the following reasons: Patient has an acute diagnosis of syncope that poses a threat to life or bodily function. This was complicated with cardiac arrest and ROSC. He has been diagnosed with third degree heart block and underwent temporary pacemaker. There were plans for permanent pacemaker once infection was ruled out however decision made to hold permanent pacemaker placement for 1-2 weeks until the left subclavian site is healed. He is cleared from a cardiology perspective for discharge. However, he is unable to take care of himself at home and will likely need placement. Case management is onboard. DVT ppx: SQ Heparin Code status: FULL CODE Objective - Vital Signs Vital signs: Vital Signs Temp 97.6 F 08/25/22 12:35 Pulse 72 08/25/22 12:35 Resp 18 08/25/22 12:35 BP 153/76 08/25/22 12:35 Pulse Ox 96 08/25/22 12:35 FiO2 Intake & Output 08/24/22 08/25/22 08/25/22 18:59 06:59 18:59 Intake Total 438 485 Output Total 0 Balance 438 485 Intake: Oral 438 485 Output: Gastric Drainage 0 Urine 0 Stool 0 Urine/Stool Mix 0 Emesis 0 Other 0 Other: Voiding Method Urinal Urinal Urinal # Voids 0 # Bowel Movements 1 1 - Labs CBC & Chem 7: 08/25/22 10:11 08/25/22 10:11 Labs: Abnormal Lab Results - Last 24 Hours (Table) 08/25/22 08/25/22 Range/Units 10:11 10:11 RBC 3.13 L (4.30-5.90) m/uL Hgb 10.2 L (13.0-17.5) gm/dL Hct 32.1 L (39.0-53.0) % MCV 102.5 H (80.0-100.0) fL RDW 16.2 H (11.5-15.5) % Sodium 130 L (137-145) mmol/L Chloride 92 L (98-107) mmol/L BUN 89 H (9-20) mg/dL Creatinine 7.30 H* (0.66-1.25) mg/dL Glucose 115 H (74-99) mg/dL Microbiology - Last 24 Hours (Table) 08/18/22 11:09 Blood Culture - Final Blood No Growth after 144 hours 08/18/22 11:02 Blood Culture - Final Blood No Growth after 144 hours
[2022-08-25] MEDS: DARBEPOETIN ALFA 40 MCG/0.4 ML SYRINGE SQ SCH (14:52)
--- NOTE | 2022-08-25 16:15 | P.PN ---
Subjective Progress Note Date: 08/25/22 Principal diagnosis: Bilateral heel wound Patient is 86-year male with a past medical history significant for hypertension end-stage renal disease on peritoneal dialysis, patient noticed to be in third-degree heart block and did have a transvenous pacer placement notice d to have a bilateral heel wound and considered to be high risk of infection. On today's evaluation that is 08/25/2022 the patient remains to be afebrile, the patient is breathing comfortably on room air, the patient denies any chest pain , the patient did have occasional dry cough with no worsening, the patient denies having any nausea no vomiting no abdominal pain and no diarrhea, has been coming of some burning pain to the toes Objective - Vital Signs Vital signs: Vital Signs Temp 97.6 F 08/25/22 12:35 Pulse 69 08/25/22 15:10 Resp 18 08/25/22 15:10 BP 153/76 08/25/22 12:35 Pulse Ox 96 08/25/22 12:35 FiO2 Intake & Output 08/24/22 08/25/22 08/25/22 18:59 06:59 18:59 Intake Total 438 485 Output Total 0 Balance 438 485 Intake: Oral 438 485 Output: Gastric Drainage 0 Urine 0 Stool 0 Urine/Stool Mix 0 Emesis 0 Other 0 Other: Voiding Method Urinal Urinal Bedpan # Voids 0 1 # Bowel Movements 1 1 - Exam GENERAL DESCRIPTION: An elderly male lying in bed in no distress RESPIRATORY SYSTEM: Unlabored breathing , decreased breath sounds at bases HEART: S1 S2 regular rate and rhythm , ABDOMEN: Soft , no tenderness EXTREMITIES: Bilateral heel currently dressed no swelling or redness to the toes was noticed - Labs CBC & Chem 7: 08/25/22 10:11 08/25/22 10:11 Labs: Abnormal Lab Results - Last 24 Hours (Table) 08/25/22 08/25/22 Range/Units 10:11 10:11 RBC 3.13 L (4.30-5.90) m/uL Hgb 10.2 L (13.0-17.5) gm/dL Hct 32.1 L (39.0-53.0) % MCV 102.5 H (80.0-100.0) fL RDW 16.2 H (11.5-15.5) % Sodium 130 L (137-145) mmol/L Chloride 92 L (98-107) mmol/L BUN 89 H (9-20) mg/dL Creatinine 7.30 H* (0.66-1.25) mg/dL Glucose 115 H (74-99) mg/dL Microbiology - Last 24 Hours (Table) 08/18/22 11:09 Blood Culture - Final Blood No Growth after 144 hours 08/18/22 11:02 Blood Culture - Final Blood No Growth after 144 hours Assessment and Plan (1) Healing wound present on both lower extremities Current Visit: Yes Status: Acute Code(s): [id number] - SNOMED Code(s): 904888287 Plan: 1patient presented to hospital with syncopal episode and has been noticed to be in third-degree heart block and the patient did require temporary transvenous pacer placement and cardiology planning for permanent pacemaker placement patient noticed to have a deep tissue injury to bilateral heel area and concern for possible high risk for infection hence infectious disease was consulted patient is currently not running any fever did have mild elevated white count patient did have bilateral heel pressure injury however there is no evidence of any cellulitis fluctuation or any drainage, patient did have a multiple bruises to the skin keeping in mind his multiple comorbidities and overall clinical condition patient will be high risk for infection if the permanent pacemaker ,the patient blood cultures remains to be negative patient did have a change of the temporary pacemaker wire and plan for possible permanent pacemaker on the left side next week as per cardiology note 2- local care to bilateral heel with heel protectors to keep the area of the pressure keep it dry and there is no need for any systemic antibiotics or local cream to bilateral heel area, 3-patient did have mildly elevated pro calcitonin chest x-ray with some infiltrate which I think is mostly fluid pneumonia not entirely excluded sputum culture have been requested but not collected 4-patient slowly clinical improvement he will continue the Rocephin short course of oral Ceftin on discharge Time with Patient: Less than 30
[2022-08-25] MEDS: HYDROcodone/APAP 5-325MG 1 EACH TAB PO PRN (18:13)
[2022-08-26] MEDS: DIALYSIS (PERIT 2.5%) 2,000 ML 50 G/2,000 ML BAG INTRAPERIT SCH ×4 (00:17→18:02)
[2022-08-26] MEDS: HEPARIN SODIUM,PORCINE/PF 5,000 UNIT/0.5 ML SYRINGE SQ SCH ×3 (00:19→17:40)
[2022-08-26] MEDS: HYDROcodone/APAP 5-325MG 1 EACH TAB PO PRN ×2 (00:56→21:14)
[2022-08-26] MEDS: PANTOPRAZOLE 40 MG TABLET PO SCH (05:54)
[2022-08-26] MEDS: hydrALAZINE HCL 50 MG TAB PO SCH ×2 (09:24→21:14)
[2022-08-26] MEDS: amLODIPine 5 MG TAB PO SCH (09:24)
[2022-08-26] MEDS: lisinopriL 5 MG TAB PO SCH (09:24)
[2022-08-26] MEDS: LACTULOSE 20 GM/30 ML CUP PO SCH ×3 (09:24→21:15)
[2022-08-26] MEDS: TAMSULOSIN 0.4 MG CAP.ER.24H PO SCH ×2 (09:24→21:14)
[2022-08-26] MEDS: allopurinoL 100 MG TAB PO SCH (09:24)
[2022-08-26] MEDS: LIDOCAINE 5% PATCH TOPICAL SCH (09:25)
[2022-08-26] MEDS: ANAGRELIDE HCL 1 MG PO SCH ×2 (09:27→21:15)
--- NOTE | 2022-08-26 10:52 | P.PN ---
Subjective Patient is seen in follow-up for end-stage renal disease. No problems with peritoneal dialysis. Awaiting permanent pacemaker placement. Hemodynamically stable. Vital signs are stable. General: No acute distress. HEENT: Head exam is unremarkable. LUNGS: No audible rhonchi or wheezes. HEART: Rate and Rhythm are regular. ABDOMEN: Nontender. EXTREMITITES: No edema. Objective - Vital Signs Vital signs: Vital Signs Temp 97.9 F 08/26/22 08:00 Pulse 70 08/26/22 08:00 Resp 18 08/26/22 08:00 BP 114/60 08/26/22 08:00 Pulse Ox 96 08/26/22 08:39 FiO2 21 08/26/22 08:39 Intake & Output 08/25/22 08/26/22 08/26/22 18:59 06:59 18:59 Intake Total 240 Balance 240 Intake: Oral 240 Other: Voiding Method Bedpan Urinal Urinal # Voids 1 - Labs CBC & Chem 7: 08/25/22 10:11 08/25/22 10:11 Labs: Abnormal Lab Results - Last 24 Hours (Table) 08/25/22 08/25/22 Range/Units 10:11 10:11 RBC 3.13 L (4.30-5.90) m/uL Hgb 10.2 L (13.0-17.5) gm/dL Hct 32.1 L (39.0-53.0) % MCV 102.5 H (80.0-100.0) fL RDW 16.2 H (11.5-15.5) % Sodium 130 L (137-145) mmol/L Chloride 92 L (98-107) mmol/L BUN 89 H (9-20) mg/dL Creatinine 7.30 H* (0.66-1.25) mg/dL Glucose 115 H (74-99) mg/dL Assessment and Plan Plan: Assessment: 1. End-stage renal disease maintained on peritoneal dialysis. Was on hemodialysis prior to admission as he was at a rehab facility but the permacath had to be removed as it was nonfunctioning. 2. Complete heart block status post temporary pacemaker placement. Awaiting permanent pacer. Required CPR. 3. Chronic systolic CHF with ejection fraction of 45-50%. 4. Lower extremity wounds. On antibiotics. ID following. 5. Anemia of chronic kidney disease maintained on Aranesp. 6. Chronic kidney disease mineral bone disease maintained on calcitriol. Plan: Maintain current PD exchanges. Hold amlodipine and hydralazine for systolic blood pressure less than 115. If patient will be returning to rehab, will need pcath placed to transition back to hemodialysis.
--- NOTE | 2022-08-26 11:55 | P.PN ---
Subjective Progress Note Date: 08/26/22 HISTORY OF PRESENT ILLNESS: This is a 86-year-old male with significant past medical history of BPH, hypertension, end-stage renal disease on peritoneal dialysis who had initially p resented to the hospital with fatigue, weakness, shortness of breath and was found to be in extreme bradycardia with heart rates 15-20 years and he had a syncopal event in the emergency room with asystole. He underwent temporary transvenous pacemaker due to complete heart block. Echocardiogram revealed EF 4550% with moderate to severe mitral regurgitation. He ultimately underwent external pacemaker placement 08/23/22. 08/24 He is doing well, out of bed in chair. Right arm is in sling, he is struggling to keep right arm still. He complains of feet aching. Denies any chest pain, pressure, shortness of breath, dizziness, or syncope. 08/25 Doing well, no changes. Denies chest pain or shortness of breath. Pacer dressing is clean, dry, intact. Still complaining of feet aching, has speciality boots on bilat feet. 08/26/2022 Patient examined this morning at the bedside. Patient denies chest pain or pressure. Denies SOB. External pacer noted to right chest. He remains on Rocephin. Vital signs are stable. PHYSICAL EXAM: VITAL SIGNS: Reviewed. GENERAL: Well-developed in no acute distress. NECK: Supple. No JVD or thyromegaly LUNGS: Respirations even and unlabored. Lungs essentially clear to auscultation bilaterally. HEART: Regular rate and rhythm. S1 and S2 heard. EXTREMITIES: Normal range of motion. No clubbing or cyanosis. Peripheral pulses intact. No lower extremity edema ASSESSMENT: Syncope Complete heart block, status post external pacemaker placement End-stage renal disease on peritoneal dialysis Hypertension PLAN: Continue Rocephin IV while inpatient Upon discharge, patient to be placed on Keflex 250mg Q8 hours for 2 weeks for infection prophylaxis Patient to undergo PPM in [address] Best Awaiting discharge to ECF. Possible transition to hemodialysis prior to dis charge to ECF. From a cardiology standpoint, to not use either right or left subclavian for HD access Dressing changes per Dr. Best only. Dressing change to be completed this week per Dr. Best Further recommendations pending patient course Nurse practitioner note has been reviewed by physician. Signing provider agrees with the documented findings, assessment, and plan of care. Objective - Vital Signs Vital signs: Vital Signs Temp 97.9 F 08/26/22 08:00 Pulse 70 08/26/22 08:00 Resp 18 08/26/22 08:00 BP 114/60 08/26/22 08:00 Pulse Ox 96 08/26/22 08:39 FiO2 21 08/26/22 08:39 Intake & Output 08/25/22 08/26/22 08/26/22 18:59 06:59 18:59 Intake Total 240 Balance 240 Intake: Oral 240 Other: Voiding Method Bedpan Urinal Urinal # Voids 1 - Labs CBC & Chem 7: 08/25/22 10:11 08/25/22 10:11 Labs: Abnormal Lab Results - Last 24 Hours (Table) 08/25/22 Range/Units 10:11 Sodium 130 L (137-145) mmol/L Chloride 92 L (98-107) mmol/L BUN 89 H (9-20) mg/dL Creatinine 7.30 H* (0.66-1.25) mg/dL Glucose 115 H (74-99) mg/dL
--- NOTE | 2022-08-26 13:34 | P.PN ---
Subjective Progress Note Date: 08/26/22 86-year-old male with history of ESRD on peritoneal dialysis, recently started on intermittent hemodialysis, chronic diastolic failure hypertension, gout presented after a syncopal episode. In the ER, patient was bradycardic up to 25, respiratory rate 18, saturating at 96% on room air, temperature 96.6, no blood pressure recorded in the chart. EKG shows third-degree AV block. Chest x-ray shows bilateral vascular congestion. On further discussion with ER attending, patient was given a cocktail for hyperkalemia after being approved by cardiology. During that time, Patient had a long pause, and CPR was initiated. Patient however woke up within 20 seconds, and was not intubated. He did receive one time epinephrine. Patient was taken directly to garden labourer for temporary pacemaker. Patient to be admitted to medical ICU. Lab work at the time of admission showed WBC 10.6, hemoglobin 10, MCV 103, platelet 444 sodium of 134, chloride 97, creatinine 5.24, magnesium 2.0, potassium 4.3, TSH 0.766. Patient is now status post insertion of pacemaker lead with externalized generator. Patient also has bilateral heel wounds. ID has been consulted to rule out any infection. Attempt was made for permanent pacemaker placement today but there was skin breakdown and erythema around the site of the left subclavian dialysis catheter which was removed 4 days ago, decision made to hold permanent pacemaker placement for 1-2 weeks until the left subclavian site is healed. Patient seen and examined at bedside. No acute events overnight. He reports neuropathic pain in both of his feet. He was no other complaints. General: nontoxic, no distress, appears at stated age Derm: warm, dry, bilateral heel wounds covered in dressing, has pacemaker with external generator. Head: atraumatic, normocephalic, symmetric Eyes: EOMI, no lid lag, anicteric sclera ENT: Nose and ears atraumatic Neck: No thyromegaly, supple Mouth: no lip lesion, mucus membranes moist Cardiovascular: Bradycardic, no murmur, no edema Lungs: clear to auscultation bilateral, no rhonchi, no rales, no wheeze, no accessory muscle use, supplemental oxygen Ext: no gross muscle atrophy, muscle strength muscle strength 5 out of 5 in all 4 extremities, no contractures Psych: Alert, oriented, appropriate affect Third-degree AV block status post pacemaker with external generator Cardiac arrest requiring CPR 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 I have reviewed the following senior staff consultant notes: Cardiology note 08/26, will need Keflex on discharge, cleared by Cardiology, anticipate internal pacemaker placement in 1-2 weeks. Nephrology note 08/26, continue current PD exchanges, hold amlodipine and hydralazine for systolic blood pressure less than 115. I have reviewed the results of the following tests: None. I have ordered the following tests: BMP ordered for tomorrow morning. I have discussed the care of this patient with the following independent historian: Case was discussed with case management. Slim chance of finding SNF that will accept external pacemaker and PD. Family able to find help at home through [facility]. They will need to do an evaluation today prior to starting service tomorrow. I have independently interpreted the following test below: None. I have discussed the management of this patient with the following physician: None. This patient has a moderate risk of morbidity due to the following reasons: Patient has an acute diagnosis of syncope that poses a threat to life or bodily function. This was complicated with cardiac arrest and ROSC. He has been diagnosed with third degree heart block and underwent temporary pacemaker. There were plans for permanent pacemaker once infection was ruled out however decision made to hold permanent pacemaker placement for 1-2 weeks until the left subclavian site is healed. He is cleared from a cardiology perspective for discharge. However, he is unable to take care of himself at home and will likely need p lacement. Case management is onboard. DVT ppx: SQ Heparin Code status: FULL CODE Anticipate discharge home tomorrow after family is able to set up in home help. Objective - Vital Signs Vital signs: Vital Signs Temp 97.6 F 08/26/22 13:19 Pulse 72 08/26/22 13:19 Resp 17 08/26/22 13:19 BP 116/68 08/26/22 13:19 Pulse Ox 93 L 08/26/22 13:19 FiO2 21 08/26/22 08:39 Intake & Output 08/25/22 08/26/22 08/26/22 18:59 06:59 18:59 Intake Total 240 Balance 240 Intake: Oral 240 Other: Voiding Method Bedpan Urinal Urinal # Voids 1 - Labs CBC & Chem 7: 08/25/22 10:11 08/25/22 10:11
[2022-08-26] MEDS: SODIUM CHLORIDE 0.9% 1,000 ML IV SCH (15:28)
--- NOTE | 2022-08-26 21:30 | P.PN ---
Subjective Progress Note Date: 08/26/22 Principal diagnosis: Bilateral heel wound Patient is 86-year male with a past medical history significant for hypertension end-stage renal disease on peritoneal dialysis, patient noticed to be in third-degree heart block and did have a transvenous pacer placement notice d to have a bilateral heel wound and considered to be high risk of infection. On today's evaluation that is 08/26/2022 the patient continues to be afebrile, the patient is breathing comfortably on room air, the patient denies any chest pain , the patient did have occasional dry cough, the patient denies having any nausea no vomiting no abdominal pain and no diarrhea, Objective - Vital Signs Vital signs: Vital Signs Temp 97.6 F 08/26/22 13:19 Pulse 72 08/26/22 13:19 Resp 17 08/26/22 13:19 BP 116/68 08/26/22 13:19 Pulse Ox 93 L 08/26/22 13:19 FiO2 21 08/26/22 08:39 Intake & Output 08/25/22 08/26/22 08/26/22 18:59 06:59 18:59 Intake Total 360 Balance 360 Intake: Oral 360 Other: Voiding Method Bedpan Urinal Urinal # Voids 1 - Exam GENERAL DESCRIPTION: An elderly male lying in bed in no distress RESPIRATORY SYSTEM: Unlabored breathing , decreased breath sounds at bases HEART: S1 S2 regular rate and rhythm , ABDOMEN: Soft , no tenderness EXTREMITIES: Bilateral heel wounds are currently dry no redness or drainage - Labs CBC & Chem 7: 08/25/22 10:11 08/25/22 10:11 Assessment and Plan (1) Healing wound present on both lower extremities Current Visit: Yes Status: Acute Code(s): [id number] - SNOMED Code(s): 222999356 Plan: 1patient presented to hospital with syncopal episode and has been noticed to be in third-degree heart block and the patient did require temporary transvenous pacer placement and cardiology planning for permanent pacemaker placement patient noticed to have a deep tissue injury to bilateral heel area and concern for possible high risk for infection hence infectious disease was consulted patient is currently not running any fever did have mild elevated white count patient did have bilateral heel pressure injury however there is no evidence of any cellulitis fluctuation or any drainage, patient did have a multiple bruises to the skin keeping in mind his multiple comorbidities and overall clinical condition patient will be high risk for infection if the permanent pacemaker ,the patient blood cultures remains to be negative patient did have a change of the temporary pacemaker wire and plan for possible permanent pacemaker on the left side next week as per cardiology note 2- local care to bilateral heel with heel protectors to keep the area of the pressure keep it dry and there is no need for any systemic antibiotics or local cream to bilateral heel area, 3-patient did have mildly elevated pro calcitonin chest x-ray with some infiltrate which I think is mostly fluid pneumonia not entirely excluded sputum culture have been requested but not collected 4-patient has shown some clinical improvement patient currently being treated with Rocephin and monitor clinical course Time with Patient: Less than 30
[2022-08-27] MEDS: HEPARIN SODIUM,PORCINE/PF 5,000 UNIT/0.5 ML SYRINGE SQ SCH ×2 (00:23→09:51)
[2022-08-27] MEDS: DIALYSIS (PERIT 2.5%) 2,000 ML 50 G/2,000 ML BAG INTRAPERIT SCH ×3 (00:24→11:58)
[2022-08-27 09:01] LABS: Calcium 9.7 mg/dL (8.4-10.2); Potassium 3.9 mmol/L (3.5-5.1)
--- NOTE | 2022-08-27 09:42 | P.PN ---
Subjective Patient is seen in follow-up for end-stage renal disease. No problems with peritoneal dialysis. Hemodynamically stable. Denies chest pain or shortness of breath. Vital signs are stable. General: No acute distress. HEENT: Head exam is unremarkable. LUNGS: No audible rhonchi or wheezes. HEART: Rate and Rhythm are regular. ABDOMEN: Nontender. EXTREMITITES: No edema. Objective - Vital Signs Vital signs: Vital Signs Temp 97.9 F 08/27/22 06:37 Pulse 65 08/27/22 06:37 Resp 18 08/27/22 06:37 BP 152/52 08/27/22 06:37 Pulse Ox 94 L 08/27/22 06:37 FiO2 21 08/26/22 08:39 Intake & Output 08/26/22 08/27/22 08/27/22 18:59 06:59 18:59 Intake Total 730 240 Output Total 0 Balance 730 0 240 Intake: Oral 730 240 Output: Urine 0 Other: Voiding Method Urinal Urinal Urinal # Voids 2 1 # Bowel Movements 1 - Labs CBC & Chem 7: 08/25/22 10:11 08/27/22 05:41 Labs: Abnormal Lab Results - Last 24 Hours (Table) 08/27/22 Range/Units 05:41 Sodium 131 L (137-145) mmol/L Chloride 91 L (98-107) mmol/L BUN 96 H (9-20) mg/dL Creatinine 7.10 H* (0.66-1.25) mg/dL Assessment and Plan Plan: Assessment: 1. End-stage renal disease maintained on peritoneal dialysis. Was on hemodialysis prior to admission as he was at a rehab facility but the permacath had to be removed as it was nonfunctioning. 2. Complete heart block status post external pacemaker placement. Permanent pacemaker to be placed 2 weeks. Required CPR. 3. Chronic systolic CHF with ejection fraction of 45-50%. 4. Lower extremity wounds. On antibiotics. ID following. 5. Anemia of chronic kidney disease maintained on Aranesp. 6. Chronic kidney disease mineral bone disease maintained on calcitriol. 7. Hyponatremia secondary to chronic kidney disease. Plan: Maintain current PD exchanges. Hold amlodipine and hydralazine for systolic blood pressure less than 115. If patient will be returning to rehab, will need pcath placed to transition back to hemodialysis. Current plan is to go home with home care.
[2022-08-27] MEDS: hydrALAZINE HCL 50 MG TAB PO SCH (09:49)
[2022-08-27] MEDS: amLODIPine 5 MG TAB PO SCH (09:49)
[2022-08-27] MEDS: TAMSULOSIN 0.4 MG CAP.ER.24H PO SCH (09:49)
[2022-08-27] MEDS: lisinopriL 5 MG TAB PO SCH (09:49)
[2022-08-27] MEDS: PANTOPRAZOLE 40 MG TABLET PO SCH (09:49)
[2022-08-27] MEDS: allopurinoL 100 MG TAB PO SCH (09:49)
[2022-08-27] MEDS: LIDOCAINE 5% PATCH TOPICAL SCH (09:50)
[2022-08-27] MEDS: ANAGRELIDE HCL 1 MG PO SCH (09:50)
[2022-08-27] MEDS: LACTULOSE 20 GM/30 ML CUP PO SCH (09:50)
--- NOTE | 2022-08-27 10:44 | P.PN ---
Subjective Progress Note Date: 08/27/22 HISTORY OF PRESENT ILLNESS: This is a 86-year-old male with significant past medical history of BPH, hypertension, end-stage renal disease on peritoneal dialysis who had initially p resented to the hospital with fatigue, weakness, shortness of breath and was found to be in extreme bradycardia with heart rates 15-20 years and he had a syncopal event in the emergency room with asystole. He underwent temporary transvenous pacemaker due to complete heart block. Echocardiogram revealed EF 4550% with moderate to severe mitral regurgitation. He ultimately underwent external pacemaker placement 08/23/22. 08/24 He is doing well, out of bed in chair. Right arm is in sling, he is struggling to keep right arm still. He complains of feet aching. Denies any chest pain, pressure, shortness of breath, dizziness, or syncope. 08/25 Doing well, no changes. Denies chest pain or shortness of breath. Pacer dressing is clean, dry, intact. Still complaining of feet aching, has speciality boots on bilat feet. 08/26/2022 Patient examined this morning at the bedside. Patient denies chest pain or pressure. Denies SOB. External pacer noted to right chest. He remains on Rocephin. Vital signs are stable. 08/27/2022 Patient examined this morning at the bedside. Patient denies chest pain or pressure. Denies SOB. External pacer noted to right chest. Vital signs are s table. PHYSICAL EXAM: VITAL SIGNS: Reviewed. GENERAL: Well-developed in no acute distress. NECK: Supple. No JVD or thyromegaly LUNGS: Respirations even and unlabored. Lungs essentially clear to auscultation bilaterally. HEART: Regular rate and rhythm. S1 and S2 heard. EXTREMITIES: Normal range of motion. No clubbing or cyanosis. Peripheral pulses intact. No lower extremity edema ASSESSMENT: Syncope Complete heart block, status post external pacemaker placement End-stage renal disease on peritoneal dialysis Hypertension PLAN: Continue Rocephin IV while inpatient Upon discharge, patient to be placed on Keflex 250mg Q8 hours for 2 weeks for infection prophylaxis Patient to undergo PPM in [address] Best Yesterday, discussion was had about transitioning to HD and then discharge to ECF. However, now plan is for patient will continue with PD and to be discharged home with private care nursing. Dressing changes per Dr. Best only. Dressing change to be completed this week per Dr. Best Further recommendations pending patient course Nurse practitioner note has been reviewed by physician. Signing provider agrees with the documented findings, assessment, and plan of care. Objective - Vital Signs Vital signs: Vital Signs Temp 97.5 F L 08/27/22 08:00 Pulse 72 08/27/22 08:00 Resp 18 08/27/22 08:00 BP 148/64 08/27/22 08:00 Pulse Ox 97 08/27/22 08:00 FiO2 21 08/26/22 08:39 Intake & Output 08/26/22 08/27/22 08/27/22 18:59 06:59 18:59 Intake Total 730 240 Output Total 0 Balance 730 0 240 Intake: Oral 730 240 Output: Urine 0 Other: Voiding Method Urinal Urinal Urinal # Voids 2 1 # Bowel Movements 1 - Labs CBC & Chem 7: 08/25/22 10:11 08/27/22 05:41 Labs: Abnormal Lab Results - Last 24 Hours (Table) 08/27/22 Range/Units 05:41 Sodium 131 L (137-145) mmol/L Chloride 91 L (98-107) mmol/L BUN 96 H (9-20) mg/dL Creatinine 7.10 H* (0.66-1.25) mg/dL
[2022-08-27 11:29] VITALS: BP 107/58; PULSE 70; RESP 16; TEMP 97.8
--- NOTE | 2022-08-27 13:50 | P.DS ---
Providers Date of admission: 08/17/22 15:12 Expected date of discharge: 08/27/22 Attending physician: Amarjit Monsalve MD Consults: 08/17/22 15:10 Consult Physician Stat Consulting Provider: Carmelo Badillo Consult Reason/Comments: third degree heart block Do you want consulting provider notified?: Already Contacted Consult Physician Urgent Consulting Provider: Krystle Santos Consult Reason/Comments: esrd on dilaysis Do you want consulting provider notified?: Yes 08/18/22 10:57 Consult Physician Routine Consulting Provider: Megan Monterroso Consult Reason/Comments: permanent pacemaker Do you want consulting provider notified?: Yes 08/20/22 08:59 Consult Physician Routine Consulting Provider: Dg Malone Consult Reason/Comments: Removal of left IJ permacath Do you want consulting provider notified?: Already Contacted Primary care physician: Stated None Hospital Course: Discharge Diagnosis: Third-degree AV block status post pacemaker with external generator Cardiac arrest requiring CPR Syncope and collapse Symptomatic bradycardia 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 In the ER, patient was bradycardic up to 25, respiratory rate 18, saturating at 96% on room air, temperature 96.6, no blood pressure recorded in the chart. EKG shows third-degree AV block. Chest x-ray shows bilateral vascular congestion. On further discussion with ER attending, patient was given a cocktail for hyperkalemia after being approved by cardiology. During that time, Patient had a long pause, and CPR was initiated. Patient however woke up within 20 seconds, and was not intubated. He did receive one time epinephrine. Patient was taken directly to slab worker for temporary pacemaker. Patient to be admitted to medical ICU. Lab work at the time of admission showed WBC 10.6, hemoglobin 10, MCV 103, platelet 444 sodium of 134, chloride 97, creatinine 5.24, magnesium 2.0, potassium 4.3, TSH 0.766. Patient is now status post insertion of pacemaker lead with externalized generator. Patient also has bilateral heel wounds. ID has been consulted to rule out any infection. Attempt was made for permanent pacemaker placement but there was skin breakdown and erythema around the site of the left subclavian dialysis catheter which was removed 4 days ago, decision made to hold permanent pacemaker placement for 1-2 weeks until the left subclavian site is healed. Patient to be discharged on oral Keflex, and have outpatient pacemaker placement. Nephrology to continue PD at home. Patient being discharged home with home care. Patient seen and examined at bedside. Vital signs reviewed and stable. General: nontoxic, no distress, appears at stated age Derm: warm, dry, bilateral heel wounds covered in dressing, has pacemaker with external generator. Head: atraumatic, normocephalic, symmetric Eyes: EOMI, no lid lag, anicteric sclera ENT: Nose and ears atraumatic Neck: No thyromegaly, supple Mouth: no lip lesion, mucus membranes moist Cardiovascular: Bradycardic, no murmur, no edema Lungs: clear to auscultation bilateral, no rhonchi, no rales, no wheeze, no accessory muscle use, supplemental oxygen Ext: no gross muscle atrophy, muscle strength muscle strength 5 out of 5 in all 4 extremities, no contractures Psych: Alert, oriented, appropriate affect A total of 37 minutes of time were spent preparing this complex discharge summary. Patient was discharged on 08/27/22 at 10:49. Patient Condition at Discharge: Stable Plan - Discharge Summary New Discharge Prescriptions: New Lactulose [Cephulac] 30 gm PO BID #1000 ml amLODIPine [Norvasc] 5 mg PO DAILY #90 tab Cephalexin [Keflex] 250 mg PO Q8HR #42 capsule Darbepoetin Abraham [Aranesp] 40 mcg SQ Q7D #30 each Lidocaine 5% Patch [Lidoderm 5% Patch] 1 patch TOPICAL DAILY #20 patch lisinopriL [Zestril] 5 mg PO DAILY #90 tab Continue Tamsulosin HCl [Flomax] 0.4 mg PO BID Anagrelide HCl [Agrylin] 1 mg PO TID Vit B Complx C/Folic Acid/Zinc [Renaplex Tablet] 1 tab PO DAILY allopurinoL [Zyloprim] 100 mg PO DAILY Pantoprazole Sodium [Protonix] 40 mg PO DAILY Acetaminophen Tab [Tylenol] 650 mg PO Q4H PRN PRN Reason: Fever And/ Or Pain Calcium Carbonate [Tums] 1,000 mg PO TID hydrALAZINE HCL [Apresoline] 50 mg PO BID calcitrioL [Calcitriol] 0.25 mcg PO MOTUWETHFR Discontinued NIFEdipine XL [Procardia XL] 30 mg PO BID Furosemide [Lasix] 80 mg PO BID Discharge Medication List Tamsulosin HCl [Flomax] 0.4 mg PO BID 05/24/14 [History] Anagrelide HCl [Agrylin] 1 mg PO TID 11/08/20 [History] Vit B Complx C/Folic Acid/Zinc [Renaplex Tablet] 1 tab PO DAILY 03/19/21 [History] Acetaminophen Tab [Tylenol] 650 mg PO Q4H PRN 08/17/22 [History] Calcium Carbonate [Tums] 1,000 mg PO TID 08/17/22 [History] Pantoprazole Sodium [Protonix] 40 mg PO DAILY 08/17/22 [History] allopurinoL [Zyloprim] 100 mg PO DAILY 08/17/22 [History] calcitrioL [Calcitriol] 0.25 mcg PO MOTUWETHFR 08/17/22 [History] hydrALAZINE HCL [Apresoline] 50 mg PO BID 08/17/22 [History] Cephalexin [Keflex] 250 mg PO Q8HR #42 capsule 08/26/22 [Rx] Darbepoetin Abraham [Aranesp] 40 mcg SQ Q7D #30 each 08/27/22 [Rx] Lactulose [Cephulac] 30 gm PO BID #1000 ml 08/27/22 [Rx] Lidocaine 5% Patch [Lidoderm 5% Patch] 1 patch TOPICAL DAILY #20 patch 08/27/22 [Rx] amLODIPine [Norvasc] 5 mg PO DAILY #90 tab 08/27/22 [Rx] lisinopriL [Zestril] 5 mg PO DAILY #90 tab 08/27/22 [Rx] Follow up Appointment(s)/Referral(s): Bran Best DO [STAFF PHYSICIAN] - 1 Week Halie Ruffin MD [REFERRING] - 1-2 days [facility] [NON-STAFF] - ([facility] will call you to arrange a visit) Patient Instructions/Handouts: Bradycardia (DC), Pacemaker (DC) Activity/Diet/Wound Care/Special Instructions: Please see cardiology for permanent pacemaker. Discharge/Stand Alone Forms: Who Do I Call?, Community Resources, Personal Fireworks Assembler Discharge Disposition: HOME WITH HOME HEALTH SERVICES
--- NOTE | 2022-09-01 21:46 | P.PN ---
Subjective Progress Note Date: 08/27/22 Principal diagnosis: Bilateral heel wound Patient is 86-year male with a past medical history significant for hypertension end-stage renal disease on peritoneal dialysis, patient noticed to be in third-degree heart block and did have a transvenous pacer placement notice d to have a bilateral heel wound and considered to be high risk of infection. On today's evaluation that is 08/27/2022 the patient remains to be afebrile, the patient is breathing comfortably on room air, the patient denies any chest pain , the patient did have occasional dry cough, the patient denies having any nausea no vomiting no abdominal pain and no diarrhea, no new symptoms feeling better Objective - Vital Signs Vital signs: Vital Signs Temp 97.8 F 08/27/22 11:28 Pulse 70 08/27/22 11:28 Resp 16 08/27/22 11:28 BP 107/58 08/27/22 11:28 Pulse Ox 92 L 08/27/22 11:28 FiO2 21 08/26/22 08:39 Intake & Output 08/26/22 08/27/22 08/27/22 18:59 06:59 18:59 Intake Total 730 240 Output Total 0 Balance 730 0 240 Intake: Oral 730 240 Output: Urine 0 Other: Voiding Method Urinal Urinal Urinal # Voids 2 1 # Bowel Movements 1 - Exam GENERAL DESCRIPTION: An elderly male lying in bed in no distress RESPIRATORY SYSTEM: Unlabored breathing , decreased breath sounds at bases HEART: S1 S2 regular rate and rhythm , ABDOMEN: Soft , no tenderness EXTREMITIES: Bilateral heel wounds are currently dry no redness or drainage - Labs CBC & Chem 7: 08/25/22 10:11 08/27/22 05:41 Labs: Abnormal Lab Results - Last 24 Hours (Table) 08/27/22 Range/Units 05:41 Sodium 131 L (137-145) mmol/L Chloride 91 L (98-107) mmol/L BUN 96 H (9-20) mg/dL Creatinine 7.10 H* (0.66-1.25) mg/dL Assessment and Plan (1) Healing wound present on both lower extremities Status: Acute Code(s): [id number] - SNOMED Code(s): 567926590 Plan: 1patient presented to hospital with syncopal episode and has been noticed to be in third-degree heart block and the patient did require temporary transvenous pacer placement and cardiology planning for permanent pacemaker placement patient noticed to have a deep tissue injury to bilateral heel area and concern for possible high risk for infection hence infectious disease was consulted patient is currently not running any fever did have mild elevated white count patient did have bilateral heel pressure injury however there is no evidence of any cellulitis fluctuation or any drainage, patient did have a multiple bruises to the skin keeping in mind his multiple comorbidities and overall clinical condition patient will be high risk for infection if the permanent pacemaker ,the patient blood cultures remains to be negative patient did have a change of the temporary pacemaker wire and plan for possible permanent pacemaker on the left side next week as per cardiology note 2- local care to bilateral heel with heel protectors to keep the area of the pressure keep it dry and there is no need for any systemic antibiotics or local cream to bilateral heel area, 3-patient did have mildly elevated pro calcitonin chest x-ray with some infiltrate which I think is mostly fluid pneumonia not entirely excluded sputum culture have been requested but not collected 4-patient has shown some clinical improvement patient has received adequate Rocephin and can be discontinued on discharge and close outpatient follow-up Time with Patient: Less than 30
== END 2022-08-27 14:52 | disposition home health service (06) | DRG 252 ==
LOC: EC 14:05 → 2SICU 15:12 → 3SCARD 08-23 18:53
PROVIDERS: ADMIT Student in an Organized Health Care Education/Training Program; ATTEND Student in an Organized Health Care Education/Training Program
PROC: 5A12012 Performance of Cardiac Output, Single, Manual (ICD-10-PCS; 2022-08-17)
PROC: 3E043XZ Introduction of Vasopressor into Central Vein, Percutaneous Approach (ICD-10-PCS; 2022-08-17)
PROC: 02HK3JZ Insertion of Pacemaker Lead into Right Ventricle, Percutaneous Approach (ICD-10-PCS; principal; 2022-08-17 14:58)
PROC: 5A1223Z Performance of Cardiac Pacing, Continuous (ICD-10-PCS; principal; 2022-08-17 14:58)
PROC: 3E1M39Z Irrigation of Peritoneal Cavity using Dialysate, Percutaneous Approach (ICD-10-PCS; 2022-08-18)
PROC: 05PY03Z Removal of Infusion Device from Upper Vein, Open Approach (ICD-10-PCS; 2022-08-20)
PROC: 0JPT0PZ Removal of Cardiac Rhythm Related Device from Trunk Subcutaneous Tissue and Fascia, Open Approach (ICD-10-PCS; 2022-08-23)
DX: I44.2 Atrioventricular block, complete (principal); I46.2 Cardiac arrest due to underlying cardiac condition; N18.6 End stage renal disease; I13.2 Hypertensive heart and chronic kidney disease with heart failure and with stage 5 chronic kidney disease, or end stage renal disease; I50.32 Chronic diastolic (congestive) heart failure; E87.1 Hypo-osmolality and hyponatremia; D50.9 Iron deficiency anemia, unspecified; D63.1 Anemia in chronic kidney disease; D75.839 Thrombocytosis, unspecified; Z99.2 Dependence on renal dialysis; E87.5 Hyperkalemia; I34.0 Nonrheumatic mitral (valve) insufficiency; I49.5 Sick sinus syndrome; K59.00 Constipation, unspecified; L89.610 Pressure ulcer of right heel, unstageable; L89.620 Pressure ulcer of left heel, unstageable; E83.9 Disorder of mineral metabolism, unspecified; N40.0 Benign prostatic hyperplasia without lower urinary tract symptoms; Z79.899 Other long term (current) drug therapy; Z80.51 Family history of malignant neoplasm of kidney; Z82.49 Family history of ischemic heart disease and other diseases of the circulatory system; I49.3 Ventricular premature depolarization; Z53.09 Procedure and treatment not carried out because of other contraindication; M10.9 Gout, unspecified; Z89.021 Acquired absence of right finger(s)
CPT/HCPCS: 33210; 36415; 71045; 80048; 80053; 82042; 83540; 83550; 83615; 83735; 83970; 84100; 84145; 84443; 84484; 85025; 85027; 85610; 85730; 86140; 87040; 87070; 87205; 89050; 93005; 93306; 93799; 94760; 96374; 99291

== ENCOUNTER 2022-09-14 18:46 | Inpatient (IN) | payer MEDICARE ==
[2022-09-14] MEDS ORDERED: MORPHINE SULFATE 2 MG/ML SYRINGE IVP STA (20:09)
--- NOTE | 2022-09-14 20:25 | XR ---
EXAMINATION TYPE: XR chest 2V DATE OF EXAM: 09/14/2022 8:18 PM COMPARISON: Chest radiographs from 09/10/2022 TECHNIQUE: XR chest 2V Frontal and lateral views of the chest. CLINICAL INDICATION:Male, 86 years old with history of syncope; FINDINGS: Lungs/Pleura: Blunting of the left costal angle. No pneumothorax or focal consolidation. Pulmonary vascularity: Prominent central perihilar vessels. Heart/mediastinum: Cardiomediastinal silhouette is enlarged and stable. Atherosclerotic calcificatio ns are seen in the aorta. Single-lead cardiac conduction device overlying the right hemithorax with l ead projecting over the right ventricle. Musculoskeletal: No acute osseous pathology. IMPRESSION: Persistent cardiomegaly with left pleural effusion and prominence of the central perihilar vessels. C orrelate with BNP for CHF exacerbation.
[2022-09-14 20:37] LABS: Partial Thromboplastin Time 24.3 sec (22.0-30.0); Prothrombin Time 10.3 sec (9.0-12.0)
[2022-09-14 20:48] LABS: Anisocytosis Slight; HCT 35.3 % (39.0-53.0); HGB 10.9 gm/dL (13.0-17.5); Hypochromasia Slight; MCH 30.4 pg (25.0-35.0); MCV 98.3 fL (80.0-100.0); Macrocytosis Slight; Mean Platelet Volume 11.3; Platelet Count 191 k/uL (150-450); RBC 3.59 m/uL (4.30-5.90); RDW 16.2 % (11.5-15.5); WBC 12.4 k/uL (3.8-10.6)
[2022-09-14 20:50] LABS: Albumin 2.5 g/dL (3.5-5.0); Calcium 9.5 mg/dL (8.4-10.2); Total Bilirubin 0.4 mg/dL (0.2-1.3); Total Protein 4.8 g/dL (6.3-8.2)
--- NOTE | 2022-09-14 21:07 | CT ---
EXAMINATION TYPE: CT brain wo con CT DLP: 1140.6 mGycm, Automated exposure control for dose reduction was used. DATE OF EXAM: 09/14/2022 8:55 PM COMPARISON: MR brain 08/14/2016 CLINICAL INDICATION:Male, 86 years old with history of syncope, ams TECHNIQUE: Brain: Multiple axial CT images of the brain were obtained without IV contrast. Coronal and sagittal reformats reviewed. FINDINGS: Brain: Extra-axial spaces: No abnormal extra-axial fluid collections. Ventricular system: Within normal limits Cerebral parenchyma: Cerebral atrophy. No acute intraparenchymal hemorrhage or mass effect. There is a region of low attenuation with loss of gooden-white differentiation within the right parietal lobe e xtending towards the sylvian fissure (series 201, image 37). This is near CSF attenuation with some i ncrease in sulcal prominence. Scattered hypoattenuating areas are seen within the white matter. Cerebellum: Unremarkable. Mass effect: No evidence of midline shift. Intracranial vasculature: Atherosclerotic calcifications of the intracranial vessels. Soft tissues: Normal. Calvarium/osseous structures: No depressed skull fracture. Incomplete fusion of the posterior arch of C1. Paranasal sinuses and mastoid air cells: Partial opacification of the left mastoid air cells and near complete opacification the right mastoid air cells. Minimal mucosal thickening of the right maxillar y sinus. Mild mucosal thickening of the right sphenoid sinus. Visualized orbits: Senile calcific scleral plaques are present. IMPRESSION: 1. Region of low attenuation with loss of gooden-white differentiation within the right parietal lobe close to CSF attenuation and new from prior MRI examination 2016. This is suggests age-indeterminate ischemia, favor more chronic. No acute intracranial hemorrhage. 2. Nonspecific white matter changes, likely secondary to chronic small vessel ischemic disease. 3. Paranasal sinus disease. Findings called to and discussed with Dr. Yoo at 9:03 p.m. on 09/14/2022
[2022-09-14 21:10] LABS: Magnesium 1.7 mg/dL (1.6-2.3); Potassium 4.3 mmol/L (3.5-5.1)
--- NOTE | 2022-09-14 21:17 | CT ---
EXAMINATION TYPE: CT thoracic spine wo con CT DLP: 1701.6 mGycm, Automated exposure control for dose reduction was used. DATE OF EXAM: 09/14/2022 8:57 PM COMPARISON: Chest radiograph 09/14/2022, CT chest 10/03/2020. CLINICAL INDICATION:Male, 86 years old with history of pain; PHH, back pain, ams TECHNIQUE: Axial images of the thoracic spine were obtained without contrast. Coronal and sagittal re formats were performed. FINDINGS: Elevation is limited due to lack of intravenous contrast. The thoracic vertebral bodies olsen ve preserved heights and alignment. No significant central canal stenosis or neural foraminal stenosi s. Small left and trace right pleural effusions with associated atelectasis. Cardiomegaly. Partial visua lization of cardiac pacemaking lead. Moderate coronary arterial calcifications and aortic valvular ca lcifications. Atherosclerotic calcification of the aorta and its branches. Ascending thoracic aortic aneurysm measuring up to 4.0 cm. Dilated main pulmonary artery measuring up to 3.9 cm. Calcified hypo dense nodule within the right thyroid lobe measuring up to 8 mm. Simple appearing perisplenic free fl uid identified. IMPRESSION: 1. No acute thoracic spinal fracture. 2. Cardiomegaly with small left and trace right pleural effusions. 3. Ascending thoracic aortic aneurysm measuring up to 4.0 cm. 4. Dilated main pulmonary artery measuring up to 3.9 cm which can be seen in the setting of pulmonar y arterial hypertension. 5. Simple appearing perisplenic fluid.
[2022-09-14 21:19] LABS: VBG PH 7.41 (7.31-7.41)
[2022-09-14 21:41] LABS: Eosinophils # (M) 0.25 k/uL (0-0.7); Large Platelets Present; Lymphocytes # (M) 1.24 k/uL (1.0-4.8); Monocytes # (M) 0.99 k/uL (0-1.0); Neutrophils # (M) 9.92 k/uL (1.3-7.7); Neutrophils % (M) 80 %; Nucleated Red Blood Cells 0 /100 WBC (0-0); Total Cells Counted 100
--- NOTE | 2022-09-14 22:17 | ED ---
General Adult HPI - General Chief complaint: Syncope Stated complaint: SOB Time Seen by Provider: 09/14/22 20:01 Source: patient, RN notes reviewed, old records reviewed Mode of arrival: EMS Limitations: no limitations - History of Present Illness Initial comments: Patient is an 86-year-old male with past medical history remarkable for heart failure, peritoneal dialysis, hypertension, received a full dialysis run this morning presents emergency Department complaining of was initially described as a syncopal episode. However when nursing staff spoke with patient's family was concerned that he was hypoxic at home which is why they brought him in for evaluation. Was just discharged for similar complaints. He states he fell a few days ago and is complaining of mid thoracic spine pain. Denies loss of consciousness at that time. She has overall poor historian which is baseline for him. Denies chest pain, shortness of breath. Does have a pacemaker that is sutured to his anterior chest wall placed a few months ago for third degree heart block. Denies shortness breath, fevers, cough. Denies any lower extremity edema. Overall poor historian though. Presents for further evaluation at this time. - Related Data Home Medications Medication Instructions Recorded Confirmed Tamsulosin HCl [Flomax] 0.4 mg PO BID 05/24/14 09/14/22 Anagrelide HCl [Agrylin] 1 mg PO TID 11/08/20 09/14/22 Vit B Complx C/Folic Acid/Zinc 1 tab PO DAILY 03/19/21 09/14/22 [Renaplex Tablet] Acetaminophen Tab [Tylenol] 650 mg PO Q4H PRN 08/17/22 09/14/22 Calcium Carbonate [Tums] 1,000 mg PO TID 08/17/22 09/14/22 Pantoprazole Sodium [Protonix] 40 mg PO DAILY 08/17/22 09/14/22 allopurinoL [Zyloprim] 100 mg PO DAILY 08/17/22 09/14/22 calcitrioL [Calcitriol] 0.25 mcg PO MOTUWETHFR 08/17/22 09/14/22 hydrALAZINE HCL [Apresoline] 50 mg PO BID 08/17/22 09/14/22 Lidocaine 5% Patch [Lidoderm 5% 1 patch TRANSDERM DAILY 09/14/22 09/14/22 Patch] Previous Rx's Medication Instructions Recorded Darbepoetin Abraham [Aranesp] 40 mcg SQ Q7D #30 each 08/27/22 lisinopriL [Zestril] 5 mg PO DAILY #90 tab 08/27/22 Allergies Allergy/AdvReac Type Severity Reaction Status Date / Time No Known Allergies Allergy Verified 09/14/22 20:41 Review of Systems ROS Statement: Those systems with pertinent positive or pertinent negative responses have been documented in the HPI. Review of Systems: CONST: Denies fever EYES: Denies blurry vision ENT: Denies nasal congestion C/V: Denies Chest pain RESP: Denies shortness of breath GI: Denies abdominal pain : Denies dysuria SKIN: Denies rash. MSK: Endorses mid back pain NEURO: Denies headache ROS Other: All systems not noted in ROS Statement are negative. Past Medical History Past Medical History: Heart Failure, Dialysis, Hypertension, Prostate Disorder, Renal Disease Additional Past Medical History / Comment(s): CURRENTLY DOING HEMODIALYSIS @ [facility] ([facility]). Thrombocytemia/elevated platelets. CKD stage IV. Anemia. BPH. 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 R hand index finger injury/partial amp. Colonoscopy. peritoneal dialysis Past Anesthesia/Blood Transfusion Reactions: No Reported Reaction Past Psychological History: No Psychological Hx Reported Smoking Status: Never smoker Past Alcohol Use History: Rare Past Drug Use History: None Reported - Past Family History Father Family Medical History: Cancer, Hypertension, Renal Disease Additional Family Medical History / Comment(s): Kidney Cancer Mother Family Medical History: No Reported History Additional Family Medical History / Comment(s): Mother was healthy General Exam - General Exam Comments Initial Comments: General: Appears in no acute distress. HEAD: Normal with no signs of head trauma. EYES: PERRLA, EOMI, conjunctiva normal, no discharge. Pupils are 3 millimeters bilaterally. ENT: Hearing grossly intact, normal oropharynx. RESPIRATORY: Clear breath sounds bilaterally. No wheezes, rales, or rhonchi. Initially documented mild hypoxia on room air to 91% however did improve and is maintaining saturations of 95-90% on room air. C/V: Regular rate and rhythm. S1 and S2 auscultated, no significant edema, peripheral pulses 2+ and intact throughout. Patient has right external defibrillator in place. ABD: Abd is soft, nontender, nondistended. Peritoneal dialysis catheter in place and appears unremarkable. EXT: Normal range of motion, no obvious deformity. No midline cervical or lumbar spine tenderness palpation. Mild mid thoracic spine tenderness to palpation. SKIN: No rashes or lesions observed on exposed skin. NEURO: Alert and oriented times one to 2 which does appear to be his baseline. Moving all 4 extremities. No obvious focal sensory strength deficits. No obvious acute deficits. Limitations: no limitations Course Vital Signs 09/14/22 09/14/22 18:52 21:07 Temperature 98.0 F Pulse Rate 80 70 Respiratory 16 16 Rate Blood Pressure 132/71 163/90 O2 Sat by Pulse 91 L 96 Oximetry Medical Decision Making - Medical Decision Making Was pt. sent in by a medical professional or institution (, PA, TRANSPORTATION COORDINATOR, urgent care, hospital, or usp...) When possible be specific @ -No Did you speak to anyone other than the patient for history (EMS, parent, family, police, friend...)? What history was obtained from this source @ -No Did you review nursing and triage notes (agree or disagree)? Why? @ -I reviewed and agree with nursing and triage notes Were old charts reviewed (outside hosp., previous admission, EMS record, old EKG, old radiological studies, urgent care reports/EKG's, usp records)? Report findings @ -Old charts reviewed from recent admission from 09/08/2022. Differential Diagnosis (chest pain, altered mental status, abdominal pain women, abdominal pain men, vaginal bleeding, weakness, fever, dyspnea, syncope, headache, dizziness, GI bleed, back pain, seizure, CVA, palpatations, mental health, musculoskeletal)? @ -Differential Weakness: Hypoglycemia, shock, sepsis, hyponatremia, anemia, infection, OH, ETOH, adverse medicine reaction, overdose, stroke, this is not meant to be an all-inclusive list. EKG interpreted by me (3pts min.). @ -As above X-rays interpreted by me (1pt min.). @ -Chest x-ray shows findings concerning for possible mild pulmonary vascular congestion as well as a left pleural effusion. CT interpreted by me (1pt min.). @ -CT brain reveals to have indeterminate age ischemia per radiology however the patient is no obvious acute neurological deficits at this time. Most recent CT brain was from 2017 for comparison. [address] spine CT reveals no obvious acute fracture or injury. Other nonrelated findings that appear to be likely chronic. U/S interpreted by me (1pt. min.). @ -None done What testing was considered but not performed or refused? (CT, X-rays, U/S, l abs)? Why? @ -None What meds were considered but not given or refused? Why? @ -None Did you discuss the management of the patient with other professionals (professionals i.e. , PA, TRANSPORTATION COORDINATOR, lab, RT, psych nurse, social service agency director, track liner operator, teacher, account officer, director case management)? Give summary @ -I spoke with Dr. Glass of [facility] who accepted the patient. Was smoking cessation discussed for >3mins.? @ -No Was critical care preformed (if so, how long)? @ -No Were there social determinants of health that impacted care today? How? (Homelessness, low income, unemployed, alcoholism, drug addiction, transportation, low edu. Level, literacy, decrease access to med. care, longterm, rehab)? @ -No Was there de-escalation of care discussed even if they declined (Discuss DNR or withdrawal of care, Hospice)? DNR status @ -No What co-morbidities impacted this encounter? (DM, HTN, Smoking, COPD, CAD, Cancer, CVA, ARF, Chemo, Hep., AIDS, mental health diagnosis, sleep apnea, morbid obesity)? @ -CHF, dialysis, external pacemaker Was patient admitted / discharged? Hospital course, mention meds given and route, prescriptions, significant lab abnormalities, going to OR and other pertinent info. @ -Pacing the patient's presentation and physical exam, initial confusion as to why the patient is here as he is a poor historian. Patient had a hypoxic episode at home as well as some possible purulent discharge from his penis. Patient is a peritoneal dialysis patient. We will obtain syncopal labs, as well as cardiopulmonary labs. CT brain as well as CT thoracic spine will also be obtained. Patient was in agreement this plan. He will receive a small dose of IV pain medications. Vital signs are within acceptable limits. Patient appears to be saturating well on minimal oxygen support and therefore we will continue to wean him as tolerated. EKG showed a paced rhythm which is chronic for the patient. Chest x-ray shows findings concerning for possible CHF. CT imaging of the brain shows possible age indeterminate ischemic changes however patient is no acute neurological deficits. Does not appear acute per Radiology. CT thoracic spine no obvious injury. Labs are remarkable for a chronically elevated troponin. BNP is elevated to 24,000. Elevated BUN/creatinine the setting of CK D. Potassium within acceptable limits. Remainder the patient's labs are within acceptable limits. Urine is pending. At this time, patient is off oxygen but did required initially upon pr esentation. Due to his hypoxia, we did decide that we will admit the patient for evaluation and observation. We controlled his troponin to infiltrate remains baseline. Patient was in agreement this plan. Patient does have chronic hyponatremia as well.Patient's urine did return remarkable for possible mild UTI and therefore empirically given a dose of Rocephin as we await results of the culture. I spoke with Dr. Glass who accepted the admission. Discussed holding consults as he was just discharged today, which Dr. Glass was in agreement with. Undiagnosed new problem with uncertain prognosis? @ -No Drug Therapy requiring intensive monitoring for toxicity (Heparin, Nitro, Insulin, Cardizem)? @ -No Were any procedures done? @ -No Diagnosis/symptom? @ -Transient hypoxia, suspect acute on chronic CHF Acute, or Chronic, or Acute on Chronic? @ -Acute on chronic Uncomplicated (without systemic symptoms) or Complicated (systemic symptoms)? @ -Complicated Side effects of treatment? @ -No Exacerbation, Progression, or Severe Exacerbation? @ -Exacerbation Poses a threat to life or bodily function? How? (Chest pain, [place], OH, pneumonia, PE, COPD, DKA, ARF, appy, cholecystitis, CVA, Diverticulitis, Homicidal, Suicidal, threat to staff... and all critical care pts) @ -Potentially, patient becomes more hypoxic then can result in end organ dysfunction. - Lab Data Result diagrams: 09/14/22 19:00 09/14/22 19:00 Lab Results 09/14/22 09/14/22 09/14/22 Range/Units 19:00 19:00 19:00 WBC 12.4 H (3.8-10.6) k/uL RBC 3.59 L (4.30-5.90) m/uL Hgb 10.9 L (13.0-17.5) gm/dL Hct 35.3 L (39.0-53.0) % MCV 98.3 (80.0-100.0) fL MCH 30.4 (25.0-35.0) pg MCHC 31.0 (31.0-37.0) g/dL RDW 16.2 H (11.5-15.5) % Plt Count 191 (150-450) k/uL MPV 11.3 Neutrophils % (Manual) 80 % Lymphocytes % (Manual) 10 % Monocytes % (Manual) 8 % Eosinophils % (Manual) 2 % Neutrophils # (Manual) 9.92 H (1.3-7.7) k/uL Lymphocytes # (Manual) 1.24 (1.0-4.8) k/uL Monocytes # (Manual) 0.99 (0-1.0) k/uL Eosinophils # (Manual) 0.25 (0-0.7) k/uL Nucleated RBCs 0 (0-0) /100 WBC Manual Slide Review Performed Large Platelets Present Hypochromasia Slight Anisocytosis Slight Macrocytosis Slight PT 10.3 (9.0-12.0) sec INR 1.0 (<1.2) APTT 24.3 (22.0-30.0) sec VBG pH (7.31-7.41) VBG pCO2 (37-51) mmHg VBG HCO3 (24-28) mmol/L Sodium 126 L (137-145) mmol/L Potassium 4.3 (3.5-5.1) mmol/L Chloride 87 L (98-107) mmol/L Carbon Dioxide 25 (22-30) mmol/L Anion Gap 14 mmol/L BUN 94 H (9-20) mg/dL Creatinine 6.32 H (0.66-1.25) mg/dL Est GFR (CKD-EPI)AfAm 9 (>60 ml/min/1.73 sqM) Est GFR (CKD-EPI)NonAf 7 (>60 ml/min/1.73 sqM) Glucose 103 H (74-99) mg/dL Calcium 9.5 (8.4-10.2) mg/dL Magnesium 1.7 (1.6-2.3) mg/dL Total Bilirubin 0.4 (0.2-1.3) mg/dL AST 31 (17-59) U/L ALT 13 (4-49) U/L Alkaline Phosphatase 57 (38-126) U/L Troponin I (0.000-0.034) ng/mL NT-Pro-B Natriuret Pep pg/mL Total Protein 4.8 L (6.3-8.2) g/dL Albumin 2.5 L (3.5-5.0) g/dL Urine Color Urine Appearance (Clear) Urine pH (5.0-8.0) Ur Specific Ismay (1.001-1.035) Urine Protein (Negative) Urine Glucose (UA) (Negative) Urine Ketones (Negative) Urine Blood (Negative) Urine Nitrite (Negative) Urine Bilirubin (Negative) Urine Urobilinogen (<2.0) mg/dL Ur Leukocyte Esterase (Negative) Urine RBC (0-5) /hpf Urine WBC (0-5) /hpf Urine Bacteria (None) /hpf Hyaline Casts (0-2) /lpf 09/14/22 09/14/22 09/14/22 Range/Units 19:00 19:00 20:38 WBC (3.8-10.6) k/uL RBC (4.30-5.90) m/uL Hgb (13.0-17.5) gm/dL Hct (39.0-53.0) % MCV (80.0-100.0) fL MCH (25.0-35.0) pg MCHC (31.0-37.0) g/dL RDW (11.5-15.5) % Plt Count (150-450) k/uL MPV Neutrophils % (Manual) % Lymphocytes % (Manual) % Monocytes % (Manual) % Eosinophils % (Manual) % Neutrophils # (Manual) (1.3-7.7) k/uL Lymphocytes # (Manual) (1.0-4.8) k/uL Monocytes # (Manual) (0-1.0) k/uL Eosinophils # (Manual) (0-0.7) k/uL Nucleated RBCs (0-0) /100 WBC Manual Slide Review Large Platelets Hypochromasia Anisocytosis Macrocytosis PT (9.0-12.0) sec INR (<1.2) APTT (22.0-30.0) sec VBG pH 7.41 (7.31-7.41) VBG pCO2 44 (37-51) mmHg VBG HCO3 28 (24-28) mmol/L Sodium (137-145) mmol/L Potassium (3.5-5.1) mmol/L Chloride (98-107) mmol/L Carbon Dioxide (22-30) mmol/L Anion Gap mmol/L BUN (9-20) mg/dL Creatinine (0.66-1.25) mg/dL Est GFR (CKD-EPI)AfAm (>60 ml/min/1.73 sqM) Est GFR (CKD-EPI)NonAf (>60 ml/min/1.73 sqM) Glucose (74-99) mg/dL Calcium (8.4-10.2) mg/dL Magnesium (1.6-2.3) mg/dL Total Bilirubin (0.2-1.3) mg/dL AST (17-59) U/L ALT (4-49) U/L Alkaline Phosphatase (38-126) U/L Troponin I 0.066 H* (0.000-0.034) ng/mL NT-Pro-B Natriuret Pep 86871 pg/mL Total Protein (6.3-8.2) g/dL Albumin (3.5-5.0) g/dL Urine Color Urine Appearance (Clear) Urine pH (5.0-8.0) Ur Specific Ismay (1.001-1.035) Urine Protein (Negative) Urine Glucose (UA) (Negative) Urine Ketones (Negative) Urine Blood (Negative) Urine Nitrite (Negative) Urine Bilirubin (Negative) Urine Urobilinogen (<2.0) mg/dL Ur Leukocyte Esterase (Negative) Urine RBC (0-5) /hpf Urine WBC (0-5) /hpf Urine Bacteria (None) /hpf Hyaline Casts (0-2) /lpf 09/14/22 Range/Units 21:56 WBC (3.8-10.6) k/uL RBC (4.30-5.90) m/uL Hgb (13.0-17.5) gm/dL Hct (39.0-53.0) % MCV (80.0-100.0) fL MCH (25.0-35.0) pg MCHC (31.0-37.0) g/dL RDW (11.5-15.5) % Plt Count (150-450) k/uL MPV Neutrophils % (Manual) % Lymphocytes % (Manual) % Monocytes % (Manual) % Eosinophils % (Manual) % Neutrophils # (Manual) (1.3-7.7) k/uL Lymphocytes # (Manual) (1.0-4.8) k/uL Monocytes # (Manual) (0-1.0) k/uL Eosinophils # (Manual) (0-0.7) k/uL Nucleated RBCs (0-0) /100 WBC Manual Slide Review Large Platelets Hypochromasia Anisocytosis Macrocytosis PT (9.0-12.0) sec INR (<1.2) APTT (22.0-30.0) sec VBG pH (7.31-7.41) VBG pCO2 (37-51) mmHg VBG HCO3 (24-28) mmol/L Sodium (137-145) mmol/L Potassium (3.5-5.1) mmol/L Chloride (98-107) mmol/L Carbon Dioxide (22-30) mmol/L Anion Gap mmol/L BUN (9-20) mg/dL Creatinine (0.66-1.25) mg/dL Est GFR (CKD-EPI)AfAm (>60 ml/min/1.73 sqM) Est GFR (CKD-EPI)NonAf (>60 ml/min/1.73 sqM) Glucose (74-99) mg/dL Calcium (8.4-10.2) mg/dL Magnesium (1.6-2.3) mg/dL Total Bilirubin (0.2-1.3) mg/dL AST (17-59) U/L ALT (4-49) U/L Alkaline Phosphatase (38-126) U/L Troponin I (0.000-0.034) ng/mL NT-Pro-B Natriuret Pep pg/mL Total Protein (6.3-8.2) g/dL Albumin (3.5-5.0) g/dL Urine Color Yellow Urine Appearance Clear (Clear) Urine pH 5.0 (5.0-8.0) Ur Specific Ismay 1.017 (1.001-1.035) Urine Protein 1+ H (Negative) Urine Glucose (UA) Negative (Negative) Urine Ketones Negative (Negative) Urine Blood Trace H (Negative) Urine Nitrite Negative (Negative) Urine Bilirubin Negative (Negative) Urine Urobilinogen <2.0 (<2.0) mg/dL Ur Leukocyte Esterase Small H (Negative) Urine RBC 11 H (0-5) /hpf Urine WBC 6 H (0-5) /hpf Urine Bacteria Rare H (None) /hpf Hyaline Casts 1 (0-2) /lpf - EKG Data -: EKG Interpreted by Me EKG Comments: 12-lead Electrocardiogram Interpretation Note EKG was reviewed and interpreted by myself. 12-lead ECG performed at 1905 is interpreted by me as revealing electronically ventricular paced rhythm at a rate of at 72 beats per minute. Left axis deviation. QRS duration is 206 seconds, QTC is 503 ms.. There were no ST or T wave abnormalities to suggest myocardial ischemia or injury. R wave progression across the precordium was satisfactory. By my interpretation this EKG is non-diagnostic for acute ischemia. Disposition Clinical Impression: Hypoxia, CHF (congestive heart failure), Dementia Disposition: ADMITTED IP TO THIS HOSP Condition: Stable Time of Disposition: 21:40
[2022-09-14] MEDS ORDERED: NALOXONE 0.4 MG/ML 1 ML VIAL IV PRN (22:38)
[2022-09-14 23:14] LABS: Appearance,Urine Clear (Clear); Bacteria,Urine Rare /hpf; Bilirubin,Urine Negative (Negative); Blood,Urine Trace (Negative); Color,Urine Yellow; Glucose,Urine (UA) Negative (Negative); Hyaline Casts,Urine 1 /lpf (0-2); Ketones,Urine Negative (Negative); Leukocyte Esterase,Urine Small (Negative); Nitrite,Urine Negative (Negative); Protein,Urine 1+ (Negative); RBC,Urine 11 /hpf (0-5); Specific Gravity,Urine 1.017 (1.001-1.035); Urobilinogen,Urine <2.0 mg/dL (<2.0); WBC,Urine 6 /hpf (0-5)
[2022-09-14] MEDS ORDERED: cefTRIAXone IN SWFI 1,000 MG/10 ML SYRINGE IVP STA (23:19)
[2022-09-15] MEDS: hydrALAZINE HCL 50 MG TAB PO SCH ×3 (00:33→21:17)
[2022-09-15 02:51] LABS: Anisocytosis Slight; HCT 33.1 % (39.0-53.0); Hypochromasia Moderate; MCH 30.4 pg (25.0-35.0); MCHC 30.3 g/dL (31.0-37.0); MCV 100.2 fL (80.0-100.0); Macrocytosis Slight; Mean Platelet Volume 11.5; Platelet Count 153 k/uL (150-450); RDW 16.2 % (11.5-15.5)
[2022-09-15 03:15] LABS: Calcium 9.7 mg/dL (8.4-10.2)
[2022-09-15 04:02] LABS: Basophils # (M) 0.11 k/uL (0-0.2); Eosinophils # (M) 0.77 k/uL (0-0.7); Large Platelets Present; Lymphocytes # (M) 1.21 k/uL (1.0-4.8); Metamyelocytes # (M) 0.22 k/uL (0); Metamyelocytes % 2 %; Monocytes # (M) 1.32 k/uL (0-1.0); Neutrophils # (M) 7.37 k/uL (1.3-7.7); Neutrophils % (M) 67 %; Nucleated Red Blood Cells 0 /100 WBC (0-0); Total Cells Counted 100
--- NOTE | 2022-09-15 04:39 | P.HPIM ---
History of Present Illness H&P Date: 09/14/22 Chief Complaint: syncope 86 year old male with ESRD on peritoneal dialysis , Hypertension patient unable to provide any meaningful history due to dementia . patient has just been discharged this afternoon to go home, after being treated for hypoxic respiratory failure secondary to diastolic CHF exacerbation. patient was followed by cardiology for CHF and elevated trops , ACS was ruled out. and followed up by nephrology for peritoneal dialysis, peritonitis was ruled out. patient also has bilateral heel pressure ulcers chronic patient is coming back in for evaluation for reported syncopal episode at home, and a fall. later family added that he was found to be hypoxic and confused again , with oxygen saturation in the 60%. upon arrival to the ED, patient seemed to be calm , with oxygen saturation in the low 90s%. patient denies any complaints, however he is unreliable, he denies chest pain , trouble breathing, abd pain nausea or vomiting Review of Systems ROS unobtainable: due to mental status Past Medical History Past Medical History: Heart Failure, Dialysis, Hypertension, Prostate Disorder, Renal Disease Additional Past Medical History / Comment(s): CURRENTLY DOING HEMODIALYSIS @ [facility] ([facility]). Thrombocytemia/elevated platelets. CKD stage IV. Anemia. BPH. 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 R hand index finger injury/partial amp. Colonoscopy. peritoneal dialysis Past Anesthesia/Blood Transfusion Reactions: No Reported Reaction Past Psychological History: No Psychological Hx Reported Smoking Status: Never smoker Past Alcohol Use History: Rare Past Drug Use History: None Reported - Past Family History Father Family Medical History: Cancer, Hypertension, Renal Disease Additional Family Medical History / Comment(s): Kidney Cancer Mother Family Medical History: No Reported History Additional Family Medical History / Comment(s): Mother was healthy Medications and Allergies Home Medications Medication Instructions Recorded Confirmed Type Tamsulosin HCl [Flomax] 0.4 mg PO BID 05/24/14 09/14/22 History Anagrelide HCl [Agrylin] 1 mg PO TID 11/08/20 09/14/22 History Vit B Complx C/Folic Acid/Zinc 1 tab PO DAILY 03/19/21 09/14/22 History [Renaplex Tablet] Acetaminophen Tab [Tylenol] 650 mg PO Q4H PRN 08/17/22 09/14/22 History Calcium Carbonate [Tums] 1,000 mg PO TID 08/17/22 09/14/22 History Pantoprazole Sodium [Protonix] 40 mg PO DAILY 08/17/22 09/14/22 History allopurinoL [Zyloprim] 100 mg PO DAILY 08/17/22 09/14/22 History calcitrioL [Calcitriol] 0.25 mcg PO MOTUWETHFR 08/17/22 09/14/22 History hydrALAZINE HCL [Apresoline] 50 mg PO BID 08/17/22 09/14/22 History Darbepoetin Abraham [Aranesp] 40 mcg SQ Q7D #30 each 08/27/22 09/14/22 Rx lisinopriL [Zestril] 5 mg PO DAILY #90 tab 08/27/22 09/14/22 Rx Lidocaine 5% Patch [Lidoderm 5% 1 patch TRANSDERM DAILY 09/14/22 09/14/22 History Patch] Allergies Allergy/AdvReac Type Severity Reaction Status Date / Time No Known Allergies Allergy Verified 09/14/22 20:41 Physical Exam Vitals: Vital Signs Temp Pulse Resp BP Pulse Ox 09/14/22 21:07 70 16 163/90 96 09/14/22 18:52 98.0 F 80 16 132/71 91 L Intake and Output 09/14/22 09/14/22 09/14/22 06:59 14:59 22:59 Output Total 200 Balance -200 Output: Urine 200 Straight 200 Other: Weight 72.575 kg Constitutional: No acute distress, pleasant, confused Eyes: Anicteric sclera, moist conjunctiva, Pupils equal round reactive to light ENMT: NC/AT Oropharynx clear, no erythema, or exudates Neck: Supple, no masses, or JVD No carotid bruits No thyromegaly Lungs: decrease breath sounds at lung bases , left worst than right , no wheezing Clear to percussion Normal respiratory effort, no accessory muscle use Cardiovascular: Heart regular in rate and rhythm, No murmurs, gallops, or rubs No peripheral edema Abdominal: Soft Nontender, no guarding, rebound or rigidity Abdomen moving with respiration Normoactive bowel sounds No hepatomegaly, No splenomegaly CAPD cath in place Skin: unstageable bilateral heel ulcers , otherwise Normal temperature, tone, texture, turgor Extremities: No digital cyanosis No clubbing Pedal pulses intact and symmetrical Radial pulses intact and symmetrical No calf tenderness Psychiatric: Alert and oriented to person only Neuro Muscles Strength 4/5 in all 4 extremities Sensation to light touch grossly present throughout Cranial nerves II-XII grossly intact Lymphatics: no palpable cervical or supraclavicular lymph nodes Results CBC & Chem 7: 09/15/22 02:30 09/15/22 02:30 Labs: Abnormal Lab Results - Last 24 Hours (Table) 09/14/22 09/14/22 09/14/22 Range/Units 19:00 19:00 19:00 WBC 12.4 H (3.8-10.6) k/uL RBC 3.59 L (4.30-5.90) m/uL Hgb 10.9 L (13.0-17.5) gm/dL Hct 35.3 L (39.0-53.0) % RDW 16.2 H (11.5-15.5) % Neutrophils # (Manual) 9.92 H (1.3-7.7) k/uL Sodium 126 L (137-145) mmol/L Chloride 87 L (98-107) mmol/L BUN 94 H (9-20) mg/dL Creatinine 6.32 H (0.66-1.25) mg/dL Glucose 103 H (74-99) mg/dL Troponin I 0.066 H* (0.000-0.034) ng/mL Total Protein 4.8 L (6.3-8.2) g/dL Albumin 2.5 L (3.5-5.0) g/dL Assessment and Plan Assessment: 86 year old male with diastolic chf , coming in for syncopal episode and hypoxemia , I discussed the case with ED doc, family seems to be interested in placement as they are unable to take care of the patient , I accepted the admission for close monitoring and optimizing oxygen requirement and PT eval for possible placement , with anticipated length of stay < 2 midnights acute hypoxic respiratory failure syncopal episode patient also had a recent episode of syncope with cardiac arrest found to have 3rd degree heart block, he is currently s/p single chamber external pacemaker cardiology consult patient is not on home oxygen , and this morning prior to DC he was satting well on room air continue to monitor and supplemental oxygen as needed ambulatory oxygen sat fall precautions chronic conditions ESRD on peritoneal dialysis nephrology consult for dialysis renal function overall stable wtih BUN 94 cr 6.3 chronic anemia , no reported bleeding Hg 10.9 continue to monitor continue aranesp diastolic CHF hypertension chronically elevated trops 2/2 ESRD with small left sided pleural effusion continue to monitor continue home meds, hydralazine, amlodipine, lisinopril bilateral unstageable heel ulcer chronic in nature continue local wound care and off pressure boots full code DVT PPX heparin sc tid 5000 units
[2022-09-15] MEDS ORDERED: HYDROcodone/APAP 5-325MG 1 EACH TAB PO PRN (04:42)
[2022-09-15] MEDS: PANTOPRAZOLE 40 MG TABLET PO SCH (06:42)
[2022-09-15] MEDS ORDERED: TAMSULOSIN 0.4 MG CAP.ER.24H PO SCH (09:00)
--- NOTE | 2022-09-15 09:48 | P.PN ---
Subjective Progress Note Date: 09/15/22 Patient is an 86-year-old male with past medical history remarkable for heart failure, peritoneal dialysis, hypertension, received a full dialysis run this morning presents emergency Department complaining of was initially described as a syncopal episode. However when nursing staff spoke with patient's family was concerned that he was hypoxic at home which is [facility] Was just discharged for similar complaints. He states he fell a few days ago and is complaining of mid thoracic spine pain. Denies loss of consciousness at that time. She has overall poor historian which is baseline for him. Denies chest pain, shortness of breath. Does have a pacemaker that is sutured to his anterior chest wall placed a few months ago for third degree heart block. Patient is a poor historian. This morning patient is denying any acute complaints. He is awake and alert. He was eating his breakfast. Patient thought he was at home in the basement. 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 Patient currently satting well on room air . Labs reviewed: WBC improved from 2.4-11.0. Hemoglobin stable around 10.0. Sodium stable at 128. Creatinine is 7.14. Troponins are 0.66, 0.067, 0.070 Images reviewed: EKG shows ventricular paced rhythm. Chest x-ray shows cardiomegaly and vascular congestion. Computed tomography scan shows residual low-attenuation within the right parietal lobe which is new from prior MRI done in 2017 which is suggestive of age-indeterminate ischemia. There is no acute intracranial hemorrhage. CT thoracic spine shows no acute spinal fracture. Ascending aortic aneurysm measuring 4.0 cm. Dilated main pulmonary artery measured 2.9 cm which can be seen in the setting of pulmonary arterial hypertension. Acute hypoxic respiratory failure suspected due to mild volume overload Syncopal episode: Suspected due to diuresing on previous admission Recent third-degree heart block status post pacemaker Chronic conditions ESRD on peritoneal dialysis Chronic anemia of unknown etiology: No overt signs of bleeding and hemoglobin stable Hypertension Chronic diastolic heart failure Chronically elevated troponin secondary to ESRD Bilateral unstageable heel ulcer: Chronic Plan Patient this morning is satting well on room air. I believe the mild hypoxia could be due to mild volume overload. I anticipate patient will intermittently require low-dose oxygen between his dialysis I suspect syncope is due to chronic debility and dehydration as patient had been diuresed. His admission. We'll hold off on his Flomax Cardiology has also been consulted for his syncope Nephrology consult for peritoneal dialysis Resume hydralazine 50 mg by mouth twice a day and lisinopril 5 mg by mouth daily, DVT prophylaxis: Subcu heparin Objective - Vital Signs Vital signs: Vital Signs Temp 97.8 F 09/15/22 04:00 Pulse 66 09/15/22 04:00 Resp 16 09/15/22 04:00 BP 153/53 09/15/22 04:00 Pulse Ox 90 L 09/15/22 08:40 FiO2 Intake & Output 09/14/22 09/15/22 09/15/22 18:59 06:59 18:59 Intake Total 50 180 Output Total 200 Balance -150 180 Weight 72.575 kg 74 kg Intake: Oral 50 180 Output: Urine 200 Straight 200 Other: Voiding Method Diaper Incontinent - Labs CBC & Chem 7: 09/15/22 02:30 09/15/22 02:30 Labs: Abnormal Lab Results - Last 24 Hours (Table) 09/14/22 09/14/22 09/14/22 Range/Units 19:00 19:00 19:00 WBC 12.4 H (3.8-10.6) k/uL RBC 3.59 L (4.30-5.90) m/uL Hgb 10.9 L (13.0-17.5) gm/dL Hct 35.3 L (39.0-53.0) % MCV (80.0-100.0) fL MCHC (31.0-37.0) g/dL RDW 16.2 H (11.5-15.5) % Neutrophils # (Manual) 9.92 H (1.3-7.7) k/uL Monocytes # (Manual) (0-1.0) k/uL Eosinophils # (Manual) (0-0.7) k/uL Metamyelocytes # (Man) (0) k/uL Sodium 126 L (137-145) mmol/L Chloride 87 L (98-107) mmol/L BUN 94 H (9-20) mg/dL Creatinine 6.32 H (0.66-1.25) mg/dL Glucose 103 H (74-99) mg/dL Troponin I 0.066 H* (0.000-0.034) ng/mL Total Protein 4.8 L (6.3-8.2) g/dL Albumin 2.5 L (3.5-5.0) g/dL Urine Protein (Negative) Urine Blood (Negative) Ur Leukocyte Esterase (Negative) Urine RBC (0-5) /hpf Urine WBC (0-5) /hpf Urine Bacteria (None) /hpf 09/14/22 09/14/22 09/15/22 Range/Units 21:56 23:41 02:30 WBC (3.8-10.6) k/uL RBC (4.30-5.90) m/uL Hgb (13.0-17.5) gm/dL Hct (39.0-53.0) % MCV (80.0-100.0) fL MCHC (31.0-37.0) g/dL RDW (11.5-15.5) % Neutrophils # (Manual) (1.3-7.7) k/uL Monocytes # (Manual) (0-1.0) k/uL Eosinophils # (Manual) (0-0.7) k/uL Metamyelocytes # (Man) (0) k/uL Sodium (137-145) mmol/L Chloride (98-107) mmol/L BUN (9-20) mg/dL Creatinine (0.66-1.25) mg/dL Glucose (74-99) mg/dL Troponin I 0.067 H* 0.070 H* (0.000-0.034) ng/mL Total Protein (6.3-8.2) g/dL Albumin (3.5-5.0) g/dL Urine Protein 1+ H (Negative) Urine Blood Trace H (Negative) Ur Leukocyte Esterase Small H (Negative) Urine RBC 11 H (0-5) /hpf Urine WBC 6 H (0-5) /hpf Urine Bacteria Rare H (None) /hpf 09/15/22 09/15/22 Range/Units 02:30 02:30 WBC 11.0 H (3.8-10.6) k/uL RBC 3.30 L (4.30-5.90) m/uL Hgb 10.0 L (13.0-17.5) gm/dL Hct 33.1 L (39.0-53.0) % MCV 100.2 H (80.0-100.0) fL MCHC 30.3 L (31.0-37.0) g/dL RDW 16.2 H (11.5-15.5) % Neutrophils # (Manual) (1.3-7.7) k/uL Monocytes # (Manual) 1.32 H (0-1.0) k/uL Eosinophils # (Manual) 0.77 H (0-0.7) k/uL Metamyelocytes # (Man) 0.22 H (0) k/uL Sodium 128 L (137-145) mmol/L Chloride 88 L (98-107) mmol/L BUN 92 H (9-20) mg/dL Creatinine 7.14 H* (0.66-1.25) mg/dL Glucose (74-99) mg/dL Troponin I (0.000-0.034) ng/mL Total Protein (6.3-8.2) g/dL Albumin (3.5-5.0) g/dL Urine Protein (Negative) Urine Blood (Negative) Ur Leukocyte Esterase (Negative) Urine RBC (0-5) /hpf Urine WBC (0-5) /hpf Urine Bacteria (None) /hpf
[2022-09-15] MEDS: lisinopriL 5 MG TAB PO SCH (09:59)
[2022-09-15] MEDS: ANAGRELIDE 0.5 MG CAP PO SCH ×3 (09:59→21:15)
[2022-09-15] MEDS: CALCIUM CARBONATE 500 MG CHEWABLE PO SCH ×3 (09:59→21:15)
[2022-09-15] MEDS: HEPARIN SODIUM,PORCINE/PF 5,000 UNIT/0.5 ML SYRINGE SQ SCH ×2 (09:59→16:19)
[2022-09-15] MEDS: allopurinoL 100 MG TAB PO SCH (09:59)
[2022-09-15] MEDS: ACETAMINOPHEN TAB 325 MG TAB PO PRN ×2 (10:01→18:37)
--- NOTE | 2022-09-15 11:22 | P.NPCON ---
History of Present Illness - Reason for Consult end stage renal disease - History of Present Illness Patient is an 86-year-old male with history of end-stage renal disease maintained on peritoneal dialysis. Patient was just discharged yesterday and was readmitted with history of feeling weak with low oxygen saturations of about 60%. Patient apparently had a fall as well. No history of loss of consciou sness. He has been mildly volume overloaded for which the dialysis exchanges had been adjusted. O2 sats for 97-98% yesterday prior to discharge. Patient denies any chest pain No significant shortness of breath currently. No complaints of abdominal pain. Peritoneal dialysis will be resumed. Review of Systems As per HPI Past Medical History Past Medical History: Heart Failure, Dialysis, Hypertension, Prostate Disorder, Renal Disease Additional Past Medical History / Comment(s): CURRENTLY DOING HEMODIALYSIS @ [facility] ([facility]). Thrombocytemia/elevated platelets. CKD stage IV. Anemia. BPH. 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 R hand index finger injury/partial amp. Colonoscopy. peritoneal dialysis Past Anesthesia/Blood Transfusion Reactions: No Reported Reaction Type of Cardiac Device: Permanent Pacemaker Device Placement Date:: 09/09/22 Past Psychological History: No Psychological Hx Reported Smoking Status: Never smoker Past Alcohol Use History: Rare Past Drug Use History: None Reported - Past Family History Father Family Medical History: Cancer, Hypertension, Renal Disease Additional Family Medical History / Comment(s): Kidney Cancer Mother Family Medical History: No Reported History Additional Family Medical History / Comment(s): Mother was healthy Medications and Allergies Home Medications Medication Instructions Recorded Confirmed Type Tamsulosin HCl [Flomax] 0.4 mg PO BID 05/24/14 09/14/22 History Anagrelide HCl [Agrylin] 1 mg PO TID 11/08/20 09/14/22 History Vit B Complx C/Folic Acid/Zinc 1 tab PO DAILY 03/19/21 09/14/22 History [Renaplex Tablet] Acetaminophen Tab [Tylenol] 650 mg PO Q4H PRN 08/17/22 09/14/22 History Calcium Carbonate [Tums] 1,000 mg PO TID 08/17/22 09/14/22 History Pantoprazole Sodium [Protonix] 40 mg PO DAILY 08/17/22 09/14/22 History allopurinoL [Zyloprim] 100 mg PO DAILY 08/17/22 09/14/22 History calcitrioL [Calcitriol] 0.25 mcg PO MOTUWETHFR 08/17/22 09/14/22 History hydrALAZINE HCL [Apresoline] 50 mg PO BID 08/17/22 09/14/22 History Darbepoetin Abraham [Aranesp] 40 mcg SQ Q7D #30 each 08/27/22 09/14/22 Rx lisinopriL [Zestril] 5 mg PO DAILY #90 tab 08/27/22 09/14/22 Rx Lidocaine 5% Patch [Lidoderm 5% 1 patch TRANSDERM DAILY 09/14/22 09/14/22 History Patch] Allergies Allergy/AdvReac Type Severity Reaction Status Date / Time No Known Allergies Allergy Verified 09/14/22 20:41 Physical Exam Vitals: Vital Signs Temp Pulse Pulse Pulse Resp BP BP 09/15/22 09:55 97.3 F L 74 18 138/54 09/15/22 08:40 09/15/22 04:00 97.8 F 66 16 153/53 09/15/22 01:51 92 18 09/14/22 23:45 97.6 F 92 18 159/60 09/14/22 21:07 70 16 163/90 09/14/22 18:52 98.0 F 80 16 132/71 Pulse Ox 09/15/22 09:55 96 09/15/22 08:40 90 L 09/15/22 04:00 99 09/15/22 01:51 09/14/22 23:45 92 L 09/14/22 21:07 96 09/14/22 18:52 91 L Intake and Output 09/14/22 09/15/22 09/15/22 22:59 06:59 14:59 Intake Total 50 180 Output Total 200 0 Balance -200 50 180 Intake: Oral 50 180 Output: Urine 200 0 Straight 200 Other: Voiding Method Diaper Diaper Incontinent Incontinent Weight 72.575 kg 74 kg Patient is awake, comfortable, no acute distress Examination of the heart S1 and S2 Examination of the lungs decreased breath sounds at the bases with minimal basal crackles Abdomen is soft nontender Examination lower extremities shows trace edema bilaterally. Both feet are currently wrapped. Patient has bilateral heel decubitus ulcers with necrotic areas per nursing staff. Results - Lab Results Most recent lab results Calcium 9.7 mg/dL (8.4-10.2) 09/15/22 02:30 Magnesium 1.7 mg/dL (1.6-2.3) 09/14/22 19:00 09/15/22 02:30 09/15/22 02:30 Assessment and Plan Assessment: 1. End-stage renal disease on peritoneal dialysis. 2. Mild volume overload 3. CK D mineral bone disorder 4. Bilateral heel decubitus ulcers 5. History of fall with no syncope. Blood pressure has not been low. 6. 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 Continue with Aranesp and Rocaltrol along with DARRION inhibitor's.
[2022-09-15] MEDS: DIALYSIS (PERIT 4.25%) 2500 ML 106.25 G/2,500 ML BAG INTRAPERIT SCH (11:50)
--- NOTE | 2022-09-15 12:42 | P.CRDCN ---
History of Present Illness Consult date: 09/15/22 Requesting physician: Garland Glass Reason for Consult (text): syncope Chief complaint: concern for confusion/hypoxia by family History of present illness: This is a confused 86-year-old gentleman who was recently discharged. HPI was obtained mostly from the chart. Patient was in the hospital last month with complete heart block and underwent external pacemaker with plans for future perm anent pacemaker implantation to be done by Dr. Best. He was most recently admitted with acute kidney injury and hypoxia with evidence of congestive heart failure. He was readmitted this admission initially stated patient had a syncopal episode but upon asking family was more increased confusion and concern for hypoxia. EKG on admission showed paced rhythm and externalized pacemaker is sutured in place to the right chest with transparent dressing in place. Labs show stable renal function with a BUN of 94 and creatinine of 6.3 to the patient does have peritoneal dialysis catheter has been doing this at home. NT proBNP is 24,600 with previous anterior BMP of 34,000. Troponins are minimally elevated but not consistent with acute coronary event. His vital signs within stable. Upon examination the patient answers minimal questions with either yes or no and at times doesn't answer questions at all. He denies any current complaints of chest discomfort or shortness of breath. Does not seem to be aware of why he is here or even that he is in the hospital. Past Medical History Past Medical History: Heart Failure, Dialysis, Hypertension, Prostate Disorder, Renal Disease Additional Past Medical History / Comment(s): CURRENTLY DOING HEMODIALYSIS @ [facility] ([facility] Thrombocytemia/elevated platelets. CKD stage IV. Anemia. BPH. 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 R hand index finger injury/partial amp. Colonoscopy. peritoneal dialysis Past Anesthesia/Blood Transfusion Reactions: No Reported Reaction Type of Cardiac Device: Permanent Pacemaker Device Placement Date:: 09/09/22 Past Psychological History: No Psychological Hx Reported Smoking Status: Never smoker Past Alcohol Use History: Rare Past Drug Use History: None Reported - Past Family History Father Family Medical History: Cancer, Hypertension, Renal Disease Additional Family Medical History / Comment(s): Kidney Cancer Mother Family Medical History: No Reported History Additional Family Medical History / Comment(s): Mother was healthy Medications and Allergies Home Medications Medication Instructions Recorded Confirmed Type Tamsulosin HCl [Flomax] 0.4 mg PO BID 05/24/14 09/14/22 History Anagrelide HCl [Agrylin] 1 mg PO TID 11/08/20 09/14/22 History Vit B Complx C/Folic Acid/Zinc 1 tab PO DAILY 03/19/21 09/14/22 History [Renaplex Tablet] Acetaminophen Tab [Tylenol] 650 mg PO Q4H PRN 08/17/22 09/14/22 History Calcium Carbonate [Tums] 1,000 mg PO TID 08/17/22 09/14/22 History Pantoprazole Sodium [Protonix] 40 mg PO DAILY 08/17/22 09/14/22 History allopurinoL [Zyloprim] 100 mg PO DAILY 08/17/22 09/14/22 History calcitrioL [Calcitriol] 0.25 mcg PO MOTUWETHFR 08/17/22 09/14/22 History hydrALAZINE HCL [Apresoline] 50 mg PO BID 08/17/22 09/14/22 History Darbepoetin Abraham [Aranesp] 40 mcg SQ Q7D #30 each 08/27/22 09/14/22 Rx lisinopriL [Zestril] 5 mg PO DAILY #90 tab 08/27/22 09/14/22 Rx Lidocaine 5% Patch [Lidoderm 5% 1 patch TRANSDERM DAILY 09/14/22 09/14/22 History Patch] Allergies Allergy/AdvReac Type Severity Reaction Status Date / Time No Known Allergies Allergy Verified 09/14/22 20:41 Physical Exam Vitals: Vital Signs Temp Pulse Pulse Pulse Resp BP BP 09/15/22 11:50 98.2 F 75 16 128/56 09/15/22 09:55 97.3 F L 74 18 138/54 09/15/22 08:40 09/15/22 04:00 97.8 F 66 16 153/53 09/15/22 01:51 92 18 09/14/22 23:45 97.6 F 92 18 159/60 09/14/22 21:07 70 16 163/90 09/14/22 18:52 98.0 F 80 16 132/71 Pulse Ox 09/15/22 11:50 98 09/15/22 09:55 96 09/15/22 08:40 90 L 09/15/22 04:00 99 09/15/22 01:51 09/14/22 23:45 92 L 09/14/22 21:07 96 09/14/22 18:52 91 L Intake and Output 09/14/22 09/15/22 09/15/22 22:59 06:59 14:59 Intake Total 50 180 Output Total 200 0 Balance -200 50 180 Intake: Oral 50 180 Output: Urine 200 0 Straight 200 Other: Voiding Method Diaper Diaper Incontinent Incontinent Weight 72.575 kg 74 kg PHYSICAL EXAMINATION: This is a 86-year-old male in no apparent distress at the time of my examination. HEENT: Head is atraumatic, normocephalic. Pupils are equal, round. Sclerae anicteric. Conjunctivae are clear. Mucous membranes of the mouth are moist. Neck is supple. There is no elevated jugular venous pressure. No carotid bruit is heard. CHEST EXAMINATION: Clear to auscultation bilaterally. No wheezes rales or rhonchi. Respirations even and nonlabored. HEART EXAMINATION: Heart regular, positive S1 and S2. No S3. No S4. A systolic murmur. ABDOMEN: Soft, nontender. Bowel sounds are heard. No organomegaly noted. EXTREMITIES: 2+ peripheral pulses with no evidence of peripheral edema and no calf tenderness noted. NEUROLOGIC EXAMINATION: Patient is awake, alert and oriented to self only. Results 09/15/22 02:30 09/15/22 02:30 Cardiac Enzymes 09/14/22 09/14/22 09/14/22 Range/Units 19:00 19:00 23:41 AST 31 (17-59) U/L Troponin I 0.066 H* 0.067 H* (0.000-0.034) ng/mL 09/15/22 Range/Units 02:30 AST (17-59) U/L Troponin I 0.070 H* (0.000-0.034) ng/mL Coagulation 09/14/22 Range/Units 19:00 PT 10.3 (9.0-12.0) sec APTT 24.3 (22.0-30.0) sec CBC 09/14/22 09/15/22 Range/Units 19:00 02:30 WBC 12.4 H 11.0 H (3.8-10.6) k/uL RBC 3.59 L 3.30 L (4.30-5.90) m/uL Hgb 10.9 L 10.0 L (13.0-17.5) gm/dL Hct 35.3 L 33.1 L (39.0-53.0) % Plt Count 191 153 (150-450) k/uL Comprehensive Metabolic Panel 09/14/22 09/15/22 Range/Units 19:00 02:30 Sodium 126 L 128 L (137-145) mmol/L Potassium 4.3 4.0 (3.5-5.1) mmol/L Chloride 87 L 88 L (98-107) mmol/L Carbon Dioxide 25 29 (22-30) mmol/L BUN 94 H 92 H (9-20) mg/dL Creatinine 6.32 H 7.14 H* (0.66-1.25) mg/dL Glucose 103 H 89 (74-99) mg/dL Calcium 9.5 9.7 (8.4-10.2) mg/dL AST 31 (17-59) U/L ALT 13 (4-49) U/L Alkaline Phosphatase 57 (38-126) U/L Total Protein 4.8 L (6.3-8.2) g/dL Albumin 2.5 L (3.5-5.0) g/dL Current Medications Generic Name Dose Route Start Last Admin Trade Name Freq PRN Reason Stop Dose Admin Acetaminophen 650 mg 09/15/22 04:42 09/15/22 10:01 Acetaminophen Tab 325 Mg Tab PO 650 mg Q4H PRN Administration Fever and/ or Pain Allopurinol 100 mg 09/15/22 09:00 09/15/22 09:59 Allopurinol 100 Mg Tab PO 100 mg DAILY [facility] Administration Anagrelide HCl 1 mg 09/15/22 09:00 09/15/22 09:59 Anagrelide 0.5 Mg Cap PO 1 mg TID [facility] Administration Calcitriol 0.25 mcg 09/16/22 09:00 Calcitriol 0.25 Mcg Cap PO MOTUWETHFR [facility] Calcium Carbonate/Glycine 1,000 mg 09/15/22 09:00 09/15/22 09:59 Calcium Carbonate 500 Mg Chewable PO 1,000 mg TID CURTIS Administration Darbepoetin Abraham 40 mcg 09/18/22 09:00 Darbepoetin Abraham 40 Mcg/0.4 Ml Syringe SQ Q7D [facility] Heparin Sodium (Porcine) 5,000 unit 09/15/22 08:00 09/15/22 09:59 Heparin Sodium,Porcine/Pf 5,000 Unit/0.5 Ml Syringe SQ 5,000 unit Q8HR [facility] Administration Hydralazine HCl 50 mg 09/14/22 23:15 09/15/22 09:59 Hydralazine Hcl 50 Mg Tab PO 50 mg BID [facility] Administration Peritoneal Dialysis Solution 106.25 g in 2,500 mls @ 0 mls/hr 09/15/22 12:00 09/15/22 11:50 Delflex With 4.25% Dextrose (2,500 Ml) INTRAPERIT 2,500 mls/hr Q12H [facility] Administration Protocol As Directed Peritoneal Dialysis Solution 62.5 g in 2,500 mls @ 0 mls/hr 09/15/22 18:00 Delflex With 2.5% Dextrose (2,500 Ml) INTRAPERIT Q12H [facility] Protocol As Directed Lisinopril 5 mg 09/15/22 09:00 09/15/22 09:59 Lisinopril 5 Mg Tab PO 5 mg DAILY [facility] Administration Naloxone HCl 0.2 mg 09/14/22 22:38 Naloxone 0.4 Mg/Ml 1 Ml Vial IV Q2M PRN Opioid Reversal Pantoprazole Sodium 40 mg 09/15/22 07:30 09/15/22 06:42 Pantoprazole 40 Mg Tablet PO 40 mg [id number] [facility] Administration Intake and Output 09/14/22 09/15/22 09/15/22 22:59 06:59 14:59 Intake Total 50 180 Output Total 200 0 Balance -200 50 180 Intake: Oral 50 180 Output: Urine 200 0 Straight 200 Other: Voiding Method Diaper Diaper Incontinent Incontinent Weight 72.575 kg 74 kg 09/15/22 02:30 09/15/22 02:30 Assessment and Plan Assessment: #1 complete heart block, currently has externalized pacemaker #2 chronic diastolic congestive heart failure #3 end-stage renal disease on peritoneal dialysis #4 advanced dementia #5 moderate to severe mitral regurgitation Plan: From cardiology's perspective medications were reviewed and will continue the same. We will discuss with Dr. Best regarding plans for permanent pacemaker implantation. Further recommendations to follow. ACADEMIC SUPPORT DIRECTOR note has been reviewed, I agree with a documented findings and plan of care. Patient was seen and examined.
[2022-09-15] MEDS: LIDOCAINE 5% PATCH TOPICAL SCH (16:18)
[2022-09-15] MEDS: DIALYSIS (PERIT 2.5%) 2,500 ML 62.5 G/2,500 ML BAG INTRAPERIT SCH (17:48)
[2022-09-16] MEDS: HEPARIN SODIUM,PORCINE/PF 5,000 UNIT/0.5 ML SYRINGE SQ SCH ×4 (00:04→23:09)
[2022-09-16] MEDS: DIALYSIS (PERIT 4.25%) 2500 ML 106.25 G/2,500 ML BAG INTRAPERIT SCH (00:04)
[2022-09-16] MEDS: DIALYSIS (PERIT 2.5%) 2,500 ML 62.5 G/2,500 ML BAG INTRAPERIT SCH (06:02)
[2022-09-16] MEDS: PANTOPRAZOLE 40 MG TABLET PO SCH (06:17)
[2022-09-16] MEDS: ACETAMINOPHEN TAB 325 MG TAB PO PRN (06:19)
[2022-09-16] MEDS: LIDOCAINE 5% PATCH TOPICAL SCH (09:12)
[2022-09-16] MEDS: CEFDINIR 300 MG CAP PO SCH ×2 (09:13→20:01)
[2022-09-16] MEDS: allopurinoL 100 MG TAB PO SCH (09:13)
[2022-09-16] MEDS: ANAGRELIDE 0.5 MG CAP PO SCH ×3 (09:13→22:34)
[2022-09-16] MEDS: CALCIUM CARBONATE 500 MG CHEWABLE PO SCH ×3 (09:13→22:34)
[2022-09-16] MEDS: hydrALAZINE HCL 50 MG TAB PO SCH ×2 (09:13→20:00)
[2022-09-16] MEDS: lisinopriL 5 MG TAB PO SCH (09:13)
--- NOTE | 2022-09-16 11:15 | P.PN ---
Subjective Patient is seen for follow-up for end-stage renal disease. Awake comfortable with no acute distress. UF about 700-600 ML with PD exchanges. Currently maintained on 4.25% solution alternating with 2.5% solutions. O2 sats 95% on room air Objective - Vital Signs Vital signs: Vital Signs Temp 97.7 F 09/16/22 08:00 Pulse 75 09/16/22 08:00 Resp 17 09/16/22 08:00 BP 121/56 09/16/22 08:00 Pulse Ox 95 09/16/22 08:00 FiO2 Intake & Output 09/15/22 09/16/22 09/16/22 18:59 06:59 18:59 Intake Total 660 540 118 Output Total 0 Balance 660 540 118 Weight 75 kg Intake: Oral 660 540 118 Output: Urine 0 Other: Voiding Method Diaper Diaper Incontinent Incontinent # Bowel Movements 1 - Exam Patient is awake, comfortable Complaining of pain in the sacral area Examination of the heart S1 and S2 Examination of the lungs bilateral breath sounds are heard Abdomen is soft nontender Examination lower extremity shows edema 1+ bilaterally PRODUCE TEAM LEAD exam grossly intact Both feet are wrapped - Labs CBC & Chem 7: 09/15/22 02:30 09/15/22 02:30 Assessment and Plan Assessment: 1. End-stage renal disease on peritoneal dialysis. 2. Mild volume overload 3. CK D mineral bone disorder 4. Bilateral heel decubitus ulcers 5. History of fall with no syncope. Blood pressure has not been low. 6. Complete heart block with underlying left bundle branch block status post pacemaker Plan: Continue with current PD exchanges Physical therapy. Continue with Aranesp and Rocaltrol along with DARRION inhibitor's.
[2022-09-16] MEDS: MIDODRINE 5 MG TAB PO SCH ×2 (12:27→17:15)
[2022-09-16] MEDS: DIALYSIS (PERIT 1.5%) 2,500 ML 37.5 G/2,500 ML BAG INTRAPERIT SCH ×2 (12:49→18:20)
--- NOTE | 2022-09-16 13:05 | P.PN ---
Subjective Progress Note Date: 09/16/22 Patient is an 86-year-old male with past medical history remarkable for heart failure, peritoneal dialysis, hypertension, received a full dialysis run this morning presents emergency Department complaining of was initially described as a syncopal episode. However when nursing staff spoke with patient's family was concerned that he was hypoxic at home which is why they brought him in for evaluation. Was just discharged for similar complaints. Patient also recently had a external pacemaker placed for third-degree heart block. Overall patient is a poor historian which is his baseline. Patient likely mildly hypoxic in between his dialysis sessions due to mild volume overload. During this hospitalization nephrology is managing his dialysis. Cardiology is not recommending any further workup. Cardiology considering possible surgery external pacemaker to a permanent pacemaker. Patient seen this morning. He has no acute complaints. No acute issues overnight. 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 Patient currently satting well on room air. Labs reviewed: Labs are not being trended as they're unremarkable. Images reviewed: EKG shows ventricular paced rhythm. Chest x-ray shows cardiomegaly and vascular congestion. Computed tomography scan shows residual low-attenuation within the right parietal lobe which is new from prior MRI done in 2017 which is suggestive of age-indeterminate ischemia. There is no acute intracranial hemorrhage. CT thoracic spine shows no acute spinal fracture. Asc ending aortic aneurysm measuring 4.0 cm. Dilated main pulmonary artery measured 2.9 cm which can be seen in the setting of pulmonary arterial hypertension. Acute hypoxic respiratory failure suspected due to mild volume overload Syncopal episode: Unclear patient really had a syncopal episode. Per cardiology no further workup. Recent third-degree heart block status post pacemaker Chronic conditions ESRD on peritoneal dialysis Chronic anemia of unknown etiology: No overt signs of bleeding and hemoglobin stable Hypertension Chronic diastolic heart failure Chronically elevated troponin secondary to ESRD Bilateral unstageable heel ulcer: Chronic Plan Patient currently satting well on room air. We'll see if patient qualifies for home O2. I suspect in between his dialysis sessions he may require oxygen due to mild volume overload. Cardiology considering switching patient to a permanent pacemaker. Nephrology managing peritoneal dialysis Resume hydralazine 50 mg by mouth twice a day and lisinopril 5 mg by mouth daily, We will hold tamsulosin for questionable syncope. Family would like the patient to go to a group home facility. Per case management no facility will take him because he is a peritoneal dialysis patient and because he has an external pacemaker. I discussed with family independence case manager about setting up patient with home O2 if he qualifies. DVT prophylaxis: Subcu heparin Anticipated discharge: Pending clinical course Anticipated discharge place: Patient will not qualify for group home facility so will have to go home. Patient will be stable for discharge after permanent pacemaker placement or if cardiology plans to do this outpatient. Objective - Vital Signs Vital signs: Vital Signs Temp 97.9 F 09/16/22 11:42 Pulse 91 09/16/22 11:42 Resp 17 09/16/22 11:42 BP 85/52 09/16/22 11:42 Pulse Ox 93 L 09/16/22 11:42 FiO2 Intake & Output 09/15/22 09/16/22 09/16/22 18:59 06:59 18:59 Intake Total 660 540 118 Output Total 0 Balance 660 540 118 Weight 75 kg Intake: Oral 660 540 118 Output: Urine 0 Other: Voiding Method Diaper Diaper Incontinent Incontinent # Bowel Movements 1 - Labs CBC & Chem 7: 09/15/22 02:30 09/15/22 02:30
--- NOTE | 2022-09-16 14:43 | P.PN ---
Subjective Progress Note Date: 09/16/22 History of present illness: This is a confused 86-year-old gentleman who was recently discharged. HPI was obtained mostly from the chart. Patient was in the hospital last month with complete heart block and underwent external pacemaker with plans for future permanent pacemaker implantation to be done by Dr. Best. He was most recently admitted with acute kidney injury and hypoxia with evidence of congestive heart failure. He was readmitted this admission initially stated patient had a syncopal episode but upon asking family was more increased confusion and concern for hypoxia. EKG on admission showed paced rhythm and externalized pacemaker is sutured in place to the right chest with transparent dressing in place. Labs show stable renal function with a BUN of 94 and creatinine of 6.3 to the patient does have peritoneal dialysis catheter has been doing this at home. NT proBNP is 24,600 with previous anterior BMP of 34,000. Troponins are minimally elevated but not consistent with acute coronary event. His vital signs within stable. Upon examination the patient answers minimal questions with either yes or no and at times doesn't answer questions at all. He denies any current complaints of chest discomfort or shortness of breath. Does not seem to be aware of why he is here or even that he is in the hospital. 09/16 patient is seen today in follow-up. He has external pacemaker and intact. Plan is for Dr. Best to evaluate and plan for permanent pacemaker implantation. Physical examination: Gen: This is an 86-year-old male patient resting in bed in no acute distress. VS: reviewed HEENT: Head is atraumatic, normocephalic. Pupils equal, round. Sclerae is anicteric. NECK: Supple. No JVD.Patient has been afebrile, heart rate in the 70s to 90s, blood pressure 85/52, pulse ox 93% on room air. Nephrology is following for dialysis, CAPD LUNGS: Clear to auscultation. No wheezes or rhonchi. No intercostal retractions. HEART: Regular rate and rhythm. Systolic murmur. ABDOMEN: Soft No tenderness. EXTREMITIES: No pedal edema. No calf tenderness. NEUROLOGICAL: Patient is awake, alert and oriented x3. Assessment: #1 complete heart block, currently has externalized pacemaker #2 chronic diastolic congestive heart failure #3 end-stage renal disease on peritoneal dialysis #4 advanced dementia #5 moderate to severe mitral regurgitation Plan: continue current cardiac medications We will discuss with Dr. Best regarding permanent pacemaker implantation Further recommendations to follow based upon clinical course Nurse practitioner note has been reviewed, I agree with documented findings and plan of care. Patient was seen and examined. Objective - Vital Signs Vital signs: Vital Signs Temp 97.9 F 09/16/22 04:00 Pulse 77 09/16/22 04:00 Resp 16 09/16/22 04:00 BP 136/92 09/16/22 04:00 Pulse Ox 94 L 09/16/22 04:00 FiO2 Intake & Output 09/15/22 09/16/22 09/16/22 18:59 06:59 18:59 Intake Total 660 540 Output Total 0 Balance 660 540 Weight 75 kg Intake: Oral 660 540 Output: Urine 0 Other: Voiding Method Diaper Diaper Incontinent Incontinent # Bowel Movements 1 - Labs CBC & Chem 7: 09/15/22 02:30 09/15/22 02:30
[2022-09-17] MEDS: DIALYSIS (PERIT 1.5%) 2,500 ML 37.5 G/2,500 ML BAG INTRAPERIT SCH ×2 (00:44→06:11)
[2022-09-17] MEDS: MIDODRINE 5 MG TAB PO SCH ×3 (07:01→18:48)
[2022-09-17] MEDS: PANTOPRAZOLE 40 MG TABLET PO SCH (07:01)
--- NOTE | 2022-09-17 08:52 | CA ---
Transthoracic Echo Report Name: Shine Montesinos Age: 86 Gender: M : 1935 Exam Date: 09/16/2022 13:42 Exam Location: [facility] Ht (in): 70 Wt (lb): 165 Ordering Physician: Otilia Robbins Attending/Referring Phys: [id number], Rosendo Command And Control Officer Mendoza Slater, CASPER Procedure CPT: Indications: LV Cardiac Hx: CHF Technical Quality: Fair Contrast 1: Total Dose (mL): Contrast 2: Total Dose (mL): MEASUREMENTS (Male / Female) Normal Values 2D ECHO LV Diastolic Diameter PLAX 5.7 cm 4.2 - 5.9 / 3.9 - 5.3 cm LV Systolic Diameter PLAX 3.5 cm LV Fractional Shortening PLAX 38.5 % IVS Diastolic Thickness 1.1 cm 0.6 - 1.0 / 0.6 - 0.9 cm IVS Systolic Thickness 1.8 cm LVPW Diastolic Thickness 1.0 cm 0.6 - 1.0 / 0.6 - 0.9 cm LVPW Systolic Thickness 1.7 cm LV Relative Wall Thickness 0.4 RV Internal Dim ED PLAX 3.7 cm LVOT Diameter 2.2 cm LA Systolic Diameter LX 3.6 cm 3.0 - 4.0 / 2.7 - 3.8 cm LV Diastolic Volume MOD BP 106.4 cm??? 67 - 155 / 56 - 104 cm??? LV Systolic Volume MOD BP 56.5 cm??? 22 - 58 / 19 - 49 cm??? LV Ejection Fraction MOD BP 46.9 % >= 55 % LV Stroke Volume MOD BP 49.9 cm??? LV Diastolic Volume MOD 4C 110.0 cm??? LV Systolic Volume MOD 4C 74.7 cm??? LV Ejection Fraction MOD 4C 32.1 % LV Stroke Volume MOD 4C 35.3 cm??? LV Diastolic Length 4C 8.7 cm LV Systolic Length 4C 7.3 cm LV Diastolic Volume MOD 2C 95.0 cm??? LV Systolic Volume MOD 2C 40.0 cm??? LV Ejection Fraction MOD 2C 57.9 % LV Stroke Volume MOD 2C 55.1 cm??? LV Diastolic Length 2C 7.8 cm LV Systolic Length 2C 8.1 cm DOPPLER MV E' Velocity 8.7 cm/s FINDINGS Left Ventricle Left grade 1 diastolic dysfunction. ventricular ejection fraction is estimated at 50 %. Borderline left ventricular hypertrophy. Right Ventricle Normal right ventricular size. Right Atrium Normal right atrial size. Left Atrium Normal left atrial size. Mitral Valve Mitral valve thickened. Aortic Valve Trileaflet aortic valve. Diffuse thickening (sclerosis) of the aortic valve cusps without reduced excursion. Tricuspid Valve Structurally normal tricuspid valve. Pulmonic Valve Pulmonic valve not well visualized. Pericardium Normal pericardium. No pericardial effusion. Aorta Normal size aortic root and proximal ascending aorta. CONCLUSIONS Left ventricular ejection fraction 50% Borderline increased left ventricular wall thickness Mild aortic sclerosis No pericardial effusion Previewed by: Dr. Bran Best DO (Electronically Signed) Final Date: 17 Sep 2022 08:51
[2022-09-17] MEDS: HEPARIN SODIUM,PORCINE/PF 5,000 UNIT/0.5 ML SYRINGE SQ SCH ×3 (09:20→23:59)
[2022-09-17] MEDS: LIDOCAINE 5% PATCH TOPICAL SCH (09:20)
[2022-09-17] MEDS: CEFDINIR 300 MG CAP PO SCH (09:21)
[2022-09-17] MEDS: CALCIUM CARBONATE 500 MG CHEWABLE PO SCH ×3 (09:22→21:59)
[2022-09-17] MEDS: ACETAMINOPHEN TAB 325 MG TAB PO PRN (09:22)
[2022-09-17] MEDS: allopurinoL 100 MG TAB PO SCH (09:23)
[2022-09-17] MEDS: hydrALAZINE HCL 50 MG TAB PO SCH ×2 (09:23→21:58)
[2022-09-17] MEDS: lisinopriL 5 MG TAB PO SCH (09:23)
[2022-09-17] MEDS: ANAGRELIDE 0.5 MG CAP PO SCH ×3 (09:27→21:58)
[2022-09-17 11:15] LABS: Anisocytosis Slight; HCT 35.6 % (39.0-53.0); HGB 10.6 gm/dL (13.0-17.5); Hypochromasia Slight; MCH 29.7 pg (25.0-35.0); MCHC 29.8 g/dL (31.0-37.0); MCV 99.5 fL (80.0-100.0); Macrocytosis Slight; RBC 3.57 m/uL (4.30-5.90); RDW 16.3 % (11.5-15.5); WBC 22.9 k/uL (3.8-10.6)
[2022-09-17 11:25] LABS: Albumin 2.5 g/dL (3.5-5.0); Calcium 9.6 mg/dL (8.4-10.2); Potassium 3.9 mmol/L (3.5-5.1); Total Bilirubin 0.3 mg/dL (0.2-1.3); Total Protein 4.8 g/dL (6.3-8.2)
--- NOTE | 2022-09-17 11:55 | P.PN ---
Subjective Patient is seen for follow-up for end-stage renal disease. Awake comfortable with no acute distress. UF about 700-600 ML with PD exchanges. Was maintained on 4.25% solution alternating with 2.5% solutions. BP was low yesterday and was switched to 1.5% exchages O2 sats 95% on room air Objective - Vital Signs Vital signs: Vital Signs Temp 97.9 F 09/17/22 09:16 Pulse 82 09/17/22 09:16 Resp 18 09/17/22 09:16 BP 131/58 09/17/22 09:16 Pulse Ox 98 09/17/22 09:16 FiO2 Intake & Output 09/16/22 09/17/22 09/17/22 18:59 06:59 18:59 Intake Total 838 240 240 Balance 838 240 240 Weight 76 kg Intake: Oral 838 240 240 Other: Voiding Method Diaper Diaper Incontinent Incontinent # Voids 0 0 # Bowel Movements 0 - Exam Patient is awake, comfortable Complaining of pain in the sacral area Examination of the heart S1 and S2 Examination of the lungs bilateral breath sounds are heard Abdomen is soft nontender Examination lower extremity shows edema 1+ bilaterally 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 End-stage renal disease on peritoneal dialysis. 2. Mild volume overload 3. CK D mineral bone disorder 4. Bilateral heel decubitus ulcers 5. History of fall with no syncope. Blood pressure has not been low. 6. Complete heart block with underlying left bundle branch block status post pacemaker Plan: Switch to 2.5% exchanges q6 hrs. Physical therapy. Continue with Aranesp and Rocaltrol along with DARRION inhibitor's.
[2022-09-17] MEDS: DIALYSIS (PERIT 2.5%) 2,500 ML 62.5 G/2,500 ML BAG INTRAPERIT SCH ×2 (13:03→18:35)
[2022-09-17] MEDS: ONDANSETRON 4 MG/2 ML VIAL IVP PRN (13:29)
[2022-09-17 14:25] LABS: Platelet Count 262 k/uL (150-450)
--- NOTE | 2022-09-17 14:49 | P.PN ---
Subjective Progress Note Date: 09/17/22 History of present illness: This is a confused 86-year-old gentleman who was recently discharged. HPI was obtained mostly from the chart. Patient was in the hospital last month with complete heart block and underwent external pacemaker with plans for future permanent pacemaker implantation to be done by Dr. Best. He was most recently admitted with acute kidney injury and hypoxia with evidence of congestive heart failure. He was readmitted this admission initially stated patient had a syncopal episode but upon asking family was more increased confusion and concern for hypoxia. EKG on admission showed paced rhythm and externalized pacemaker is sutured in place to the right chest with transparent dressing in place. Labs show stable renal function with a BUN of 94 and creatinine of 6.3 to the patient does have peritoneal dialysis catheter has been doing this at home. NT proBNP is 24,600 with previous anterior BMP of 34,000. Troponins are minimally elevated but not consistent with acute coronary event. His vital signs within stable. Upon examination the patient answers minimal questions with either yes or no and at times doesn't answer questions at all. He denies any current complaints of chest discomfort or shortness of breath. Does not seem to be aware of why he is here or even that he is in the hospital. 09/16 patient is seen today in follow-up. He has external pacemaker and intact. Plan is for Dr. Bset to evaluate and plan for permanent pacemaker implantation. 09/17 Patient seen today in follow up. He complains of upset stomach this morning. Answering questions more appropriatelly with intermitent confusion. No complaints of shortness of breath. Family is at the bedside and discussed plan for permanent pacemaker and next 1-2 days. Echocardiogram reveals EF of 50%, borderline increased left ventricular wall thickness, mild aortic sclerosis. No pericardial effusion. Physical examination: Gen: This is an 86-year-old male patient resting in bed in no acute distress. VS: reviewed HEENT: Head is atraumatic, normocephalic. Pupils equal, round. Sclerae is anicteric. NECK: Supple. No JVD.Patient has been afebrile, heart rate in the 70s to 90s, blood [id number]/66 pulse ox 95% on 2 L nasal cannula. LUNGS: Clear to auscultation. No wheezes or rhonchi. No intercostal retractions. HEART: Regular rate and rhythm. Systolic murmur. ABDOMEN: Soft No tenderness. EXTREMITIES: No pedal edema. No calf tenderness. NEUROLOGICAL: Patient is awake, alert and oriented x3. Assessment: #1 complete heart block, currently has externalized pacemaker #2 chronic diastolic congestive heart failure #3 end-stage renal disease on peritoneal dialysis #4 advanced dementia #5 moderate to severe mitral regurgitation Plan: continue current cardiac medications We will discuss with Dr. Best regarding permanent pacemaker implantation in the next 1-2 days Further recommendations to follow based upon clinical course Nurse practitioner note has been reviewed, I agree with documented findings and plan of care. Patient was seen and examined. Objective - Vital Signs Vital signs: Vital Signs Temp 97.9 F 09/17/22 09:16 Pulse 82 09/17/22 09:16 Resp 18 09/17/22 09:16 BP 131/58 09/17/22 09:16 Pulse Ox 98 09/17/22 09:16 FiO2 Intake & Output 09/16/22 09/17/22 09/17/22 18:59 06:59 18:59 Intake Total 838 240 240 Balance 838 240 240 Weight 76 kg Intake: Oral 838 240 240 Other: Voiding Method Diaper Diaper Incontinent Incontinent # Voids 0 0 # Bowel Movements 0 - Labs CBC & Chem 7: 09/17/22 11:03 09/17/22 11:03
--- NOTE | 2022-09-17 15:02 | P.PN ---
Subjective Progress Note Date: 09/17/22 86-year-old male with history of ESRD on peritoneal dialysis, chronic diastolic heart failure, hypertension, gout presents to the ED for altered mental status. Patient was recently admitted on 08/17 and discharged on 08/26 after a syncopal episode, noted to have a third degree heart block, required CPR for cardiac arrest, fitted for pacemaker with external generator and discharged with plans to follow up outpatient with Cardiology for permenant pacemaker placement. He was once again admitted for altered mentaion and hypoxia from 09/08-09/14, found to be volume overloaded. Patient's fluid status was managed with dialysis with Nephrology following and he was discharged saturating well on room air. He pres ented back to the hospital on 09/14 for syncopal episode, hypoxia and confusion with reported O2 saturation in the 60s at home. Nephrology is consulted to resume peritoneal dialysis. Cardiology was consulted with regard to plans for permanent pacemaker. Patient seen and examined. No acute events overnight. and sheet metal pattern cutter at bedside. His sheet metal pattern cutter reports that patient usually gets hypoxic when ambulating. Family requesting wound care consult. States that patient appears shaky. General: nontoxic, no distress, appears at stated age Derm: warm, dry, bilateral heel wounds, has pacemaker with external generator. Head: atraumatic, normocephalic, symmetric Eyes: EOMI, no lid lag, anicteric sclera ENT: Nose and ears atraumatic Cardiovascular: Normal S1 S2, no murmur, no edema Lungs: clear to auscultation bilateral, no rhonchi, no rales, no wheeze, no accessory muscle use, supplemental oxygen Peritoneal dialysis catheter in place. Abdomen slightly distended. Ext: no gross muscle atrophy, muscle strength muscle strength 5 out of 5 in all 4 extremities, no contractures Psych: Alert, oriented, appropriate affect Acute hypoxic respiratory failure secondary to volume overload Syncopal episode possibly related to hypoxia Troponin elevation ESRD on intermittent hemodialysis as well as peritoneal dialysis Hyponatremia Leukocytosis Bilateral heel wounds present on admission Chronic conditions: Hypertension, Chronic microcytic anemia, third-degree AV block status post pacemaker with external generator, Diastolic CHF Based on my assessment of this patient, this patient meets a high complexity level of care. Patient has an acute diagnosis of acute hypoxic respiratory failure secondary to volume overload in the setting of ESRD that poses a threat to life or bodily function. He is confused as a result of this. Nephrology has been consulted to resume dialysis. Cardiology consulted for workup of syncope. He will be placed on fall precautions. Telemetry monitoring as ordered. Cardiology on board. Patient is elevated troponins at baseline with regard to his previous admission. ACS has been ruled out. Patient has elevated WBC count of 22.9 today. He does not meet sepsis criteria. No current obvious source of infection. Continue to monitor. Sodium of 125. To be managed with dialysis. His hemoglobin appears at baseline and he has no active signs of bleeding at this time. Attempt to preform home O2 eval when working with PT and OT. Gout - Allopurinol 100 mg PO QD. Hypertension - Lisinoprl 5 mg PO QD, Hydralazine 50 mg PO BID. Heparin SQ for DVT prophylaxis. FULL CODE. I have reviewed the following [employer] consultant notes: Nephrology note 09/17, Change to 2.5% exchange Q6H. I have reviewed the results of the following tests: CBC shows WBC count of 22.9, Hg 10.6. BMP shows Na 125, Cl 86, BUN 77, Cr 6.5, glucose 135, albumin 2.5. Echocardiogram shows EF 50% at G1DD. I have ordered the following tests: None. I have discussed the care of this patient with the following independent historian: None. I have independently interpreted the following test below: None. I have discussed the management of this patient with the following physician: The case was discussed with Dr. Harris with regard to the plan outlined above. Objective - Vital Signs Vital signs: Vital Signs Temp 97.6 F 09/17/22 13:08 Pulse 75 09/17/22 13:08 Resp 20 09/17/22 13:32 BP 139/66 09/17/22 13:08 Pulse Ox 100 09/17/22 14:37 FiO2 Intake & Output 09/16/22 09/17/22 09/17/22 18:59 06:59 18:59 Intake Total 838 240 358 Balance 838 240 358 Weight 76 kg 76 kg Intake: Oral 838 240 358 Other: Voiding Method Diaper Diaper Diaper Incontinent Incontinent Incontinent # Voids 0 0 0 # Bowel Movements 0 - Labs CBC & Chem 7: 09/17/22 11:03 09/17/22 11:03 Labs: Abnormal Lab Results - Last 24 Hours (Table) 09/17/22 09/17/22 Range/Units 11:03 11:03 WBC 22.9 H (3.8-10.6) k/uL RBC 3.57 L (4.30-5.90) m/uL Hgb 10.6 L (13.0-17.5) gm/dL Hct 35.6 L (39.0-53.0) % MCHC 29.8 L (31.0-37.0) g/dL RDW 16.3 H (11.5-15.5) % Sodium 125 L (137-145) mmol/L Chloride 86 L (98-107) mmol/L BUN 77 H (9-20) mg/dL Creatinine 6.50 H (0.66-1.25) mg/dL Glucose 135 H (74-99) mg/dL Total Protein 4.8 L (6.3-8.2) g/dL Albumin 2.5 L (3.5-5.0) g/dL
[2022-09-17 15:04] LABS: Glucose,Whole Blood 179 mg/dL (70-110)
[2022-09-18] MEDS: DIALYSIS (PERIT 2.5%) 2,500 ML 62.5 G/2,500 ML BAG INTRAPERIT SCH ×3 (00:28→18:31)
[2022-09-18] MEDS: MIDODRINE 5 MG TAB PO SCH ×3 (06:50→18:31)
[2022-09-18] MEDS: PANTOPRAZOLE 40 MG TABLET PO SCH (06:56)
[2022-09-18 08:22] LABS: Anisocytosis Slight; HCT 34.6 % (39.0-53.0); HGB 10.7 gm/dL (13.0-17.5); MCH 29.8 pg (25.0-35.0); Mean Platelet Volume 11.2; RDW 16.7 % (11.5-15.5); WBC 18.9 k/uL (3.8-10.6)
[2022-09-18 08:44] LABS: Calcium 10.2 mg/dL (8.4-10.2); Potassium 3.3 mmol/L (3.5-5.1)
[2022-09-18] MEDS ORDERED: CEFDINIR 300 MG CAP PO SCH (09:00)
[2022-09-18 09:13] LABS: Platelet Count 248 k/uL (150-450)
[2022-09-18] MEDS: LIDOCAINE 5% PATCH TOPICAL SCH (09:21)
[2022-09-18] MEDS: DARBEPOETIN ALFA 40 MCG/0.4 ML SYRINGE SQ SCH (09:22)
[2022-09-18] MEDS: HEPARIN SODIUM,PORCINE/PF 5,000 UNIT/0.5 ML SYRINGE SQ SCH ×2 (09:22→16:06)
[2022-09-18] MEDS: CALCIUM CARBONATE 500 MG CHEWABLE PO SCH ×4 (09:22→20:22)
[2022-09-18] MEDS: lisinopriL 5 MG TAB PO SCH (09:23)
[2022-09-18] MEDS: hydrALAZINE HCL 50 MG TAB PO SCH ×2 (09:23→20:21)
[2022-09-18] MEDS: allopurinoL 100 MG TAB PO SCH (09:23)
[2022-09-18] MEDS: ANAGRELIDE 0.5 MG CAP PO SCH ×4 (09:23→20:22)
--- NOTE | 2022-09-18 11:41 | P.PN ---
Subjective Patient is seen for follow-up for end-stage renal disease. Awake comfortable with no acute distress. UF about 400-600 ML with PD exchanges. Was maintained on 2.5% solutions. O2 sats 96% on room air Awaiting pacemaker placement Objective - Vital Signs Vital signs: Vital Signs Temp 98.2 F 09/18/22 09:10 Pulse 69 09/18/22 09:10 Resp 18 09/18/22 09:10 BP 141/58 09/18/22 09:10 Pulse Ox 96 09/18/22 09:10 FiO2 Intake & Output 09/17/22 09/18/22 09/18/22 18:59 06:59 18:59 Intake Total 358 Balance 358 Weight 76 kg 75 kg Intake: Oral 358 Other: Voiding Method Diaper Diaper Incontinent Incontinent # Voids 0 0 1 - Exam Patient is awake, comfortable Complaining of pain in the sacral area Examination of the heart S1 and S2 Examination of the lungs bilateral breath sounds are heard Abdomen is soft nontender Examination lower extremity shows no edema now PIPE CONNECTOR exam grossly intact Both feet are wrapped - Labs CBC & Chem 7: 09/18/22 07:51 09/18/22 07:51 Labs: Abnormal Lab Results - Last 24 Hours (Table) 09/17/22 09/17/22 09/18/22 Range/Units 11:03 15:02 07:51 WBC 22.9 H 18.9 H (3.8-10.6) k/uL RBC 3.57 L 3.60 L (4.30-5.90) m/uL Hgb 10.6 L 10.7 L (13.0-17.5) gm/dL Hct 35.6 L 34.6 L (39.0-53.0) % MCHC 29.8 L (31.0-37.0) g/dL RDW 16.3 H 16.7 H (11.5-15.5) % Sodium (137-145) mmol/L Potassium (3.5-5.1) mmol/L Chloride (98-107) mmol/L BUN (9-20) mg/dL Creatinine (0.66-1.25) mg/dL Glucose (74-99) mg/dL POC Glucose (mg/dL) 179 H (70-110) mg/dL 09/18/22 Range/Units 07:51 WBC (3.8-10.6) k/uL RBC (4.30-5.90) m/uL Hgb (13.0-17.5) gm/dL Hct (39.0-53.0) % MCHC (31.0-37.0) g/dL RDW (11.5-15.5) % Sodium 128 L (137-145) mmol/L Potassium 3.3 L (3.5-5.1) mmol/L Chloride 87 L (98-107) mmol/L BUN 69 H (9-20) mg/dL Creatinine 6.31 H (0.66-1.25) mg/dL Glucose 131 H (74-99) mg/dL POC Glucose (mg/dL) (70-110) mg/dL Assessment and Plan Assessment: 1. End-stage renal disease on peritoneal dialysis. 2. Mild volume overload, improved 3. CK D mineral bone disorder 4. Bilateral heel decubitus ulcers 5. History of fall with no syncope. Blood pressure has not been low. 6. Complete heart block with underlying left bundle branch block status post pacemaker Plan: Switch to 2.5% exchanges alternating with 1.5% solution Physical therapy. Continue with Aranesp and Rocaltrol along with DARRION inhibitor's.
--- NOTE | 2022-09-18 12:13 | P.PN ---
Subjective Progress Note Date: 09/18/22 History of present illness: This is a confused 86-year-old gentleman who was recently discharged. HPI was obtained mostly from the chart. Patient was in the hospital last month with complete heart block and underwent external pacemaker with plans for future permanent pacemaker implantation to be done by Dr. Best. He was most recently admitted with acute kidney injury and hypoxia with evidence of congestive heart failure. He was readmitted this admission initially stated patient had a syncopal episode but upon asking family was more increased confusion and concern for hypoxia. EKG on admission showed paced rhythm and externalized pacemaker is sutured in place to the right chest with transparent dressing in place. Labs show stable renal function with a BUN of 94 and creatinine of 6.3 to the patient does have peritoneal dialysis catheter has been doing this at home. NT proBNP is 24,600 with previous anterior BMP of 34,000. Troponins are minimally elevated but not consistent with acute coronary event. His vital signs within stable. Upon examination the patient answers minimal questions with either yes or no and at times doesn't answer questions at all. He denies any current complaints of chest discomfort or shortness of breath. Does not seem to be aware of why he is here or even that he is in the hospital. 09/16 patient is seen today in follow-up. He has external pacemaker and intact. Plan is for Dr. Best to evaluate and plan for permanent pacemaker implantation. 09/17 Patient seen today in follow up. He complains of upset stomach this morning. Answering questions more appropriatelly with intermitent confusion. No complaints of shortness of breath. Family is at the bedside and discussed plan for permanent pacemaker and next 1-2 days. Echocardiogram reveals EF of 50%, borderline increased left ventricular wall thickness, mild aortic sclerosis. No pericardial effusion. 09/18 Patient is seen today in follow up. No change in condition. He is continued on CAPD. Patient is afebrile. BP 141/58, HR 69, PO 96% RA. Physical examination: Gen: This is an 86-year-old male patient resting in bed in no acute distress. VS: reviewed HEENT: Head is atraumatic, normocephalic. Pupils equal, round. Sclerae is anicteric. NECK: Supple. No JVD. LUNGS: Clear to auscultation. No wheezes or rhonchi. No intercostal retractions. HEART: Regular rate and rhythm. Systolic murmur. ABDOMEN: Soft No tenderness. EXTREMITIES: No pedal edema. No calf tenderness. NEUROLOGICAL: Patient is awake, alert and oriented x3. Assessment: #1 complete heart block, currently has externalized pacemaker #2 chronic diastolic congestive heart failure #3 end-stage renal disease on peritoneal dialysis #4 advanced dementia #5 moderate to severe mitral regurgitation Plan: continue current cardiac medications We will discuss with Dr. Best regarding permanent pacemaker implantation in the next 1-2 days Further recommendations to follow based upon clinical course Nurse practitioner note has been reviewed, I agree with documented findings and plan of care. Patient was seen and examined. Objective - Vital Signs Vital signs: Vital Signs Temp 98.2 F 09/18/22 09:10 Pulse 69 09/18/22 09:10 Resp 18 09/18/22 09:10 BP 141/58 09/18/22 09:10 Pulse Ox 96 09/18/22 09:10 FiO2 Intake & Output 09/17/22 09/18/22 09/18/22 18:59 06:59 18:59 Intake Total 358 Balance 358 Weight 76 kg 75 kg Intake: Oral 358 Other: Voiding Method Diaper Diaper Incontinent Incontinent # Voids 0 0 1 - Labs CBC & Chem 7: 09/18/22 07:51 09/18/22 07:51 Labs: Abnormal Lab Results - Last 24 Hours (Table) 09/17/22 09/17/22 09/17/22 Range/Units 11:03 11:03 15:02 WBC 22.9 H (3.8-10.6) k/uL RBC 3.57 L (4.30-5.90) m/uL Hgb 10.6 L (13.0-17.5) gm/dL Hct 35.6 L (39.0-53.0) % MCHC 29.8 L (31.0-37.0) g/dL RDW 16.3 H (11.5-15.5) % Sodium 125 L (137-145) mmol/L Potassium (3.5-5.1) mmol/L Chloride 86 L (98-107) mmol/L BUN 77 H (9-20) mg/dL Creatinine 6.50 H (0.66-1.25) mg/dL Glucose 135 H (74-99) mg/dL POC Glucose (mg/dL) 179 H (70-110) mg/dL Total Protein 4.8 L (6.3-8.2) g/dL Albumin 2.5 L (3.5-5.0) g/dL 09/18/22 09/18/22 Range/Units 07:51 07:51 WBC 18.9 H (3.8-10.6) k/uL RBC 3.60 L (4.30-5.90) m/uL Hgb 10.7 L (13.0-17.5) gm/dL Hct 34.6 L (39.0-53.0) % MCHC (31.0-37.0) g/dL RDW 16.7 H (11.5-15.5) % Sodium 128 L (137-145) mmol/L Potassium 3.3 L (3.5-5.1) mmol/L Chloride 87 L (98-107) mmol/L BUN 69 H (9-20) mg/dL Creatinine 6.31 H (0.66-1.25) mg/dL Glucose 131 H (74-99) mg/dL POC Glucose (mg/dL) (70-110) mg/dL Total Protein (6.3-8.2) g/dL Albumin (3.5-5.0) g/dL
[2022-09-18 13:01] LABS: Glucose,Whole Blood 72 mg/dL (70-110)
--- NOTE | 2022-09-18 13:30 | P.CON ---
Consult Note - . Consult date: 09/18/22 Assessment/Plan:: This is a moderately demented 86-year-old gentleman with multiple complex medical problems including end-stage renal disease on peritoneal dialysis, chronic anemia, hypertension with diastolic left ventricular dysfunction, and third degree heart block with a temporary pacemaker in place. We've been asked to see this patient in regards to unstageable heel ulcers and a mild sacral decubitus, stage I. On examination we find a pleasantly disoriented 86-year-old gentleman in no current distress. He has a small stage I sacral decubitus. He has a small spot of eschar on the left heel and a 2-1/2 cm eschar blackened on the posterior right heel. Recommendation: I would recommend a simple triad cream regimen for the sacral decubitus and maintain offloading with side to side positioning, and/or use of rolled condition or other means of preventing trauma to the sacral area. I would temporarily utilize bordered foam on both heels. Once the eschar loosens this should be debrided and switch to Santyl or whatever regimen appears most appropriate once this eschar has been removed. The currently used heel boots are ineffective. They have foam everywhere except where he places pressure on the posterior aspect of the heels. I would recommend propping the legs with pillows leaving the heels dangling or utilizing a more surrounding foam boot that protects the heels from the grinding that he does with his knees drawn up. Thank you for the opportunity participate in this unfortunate gentleman scare. We be happy to follow him in wound care if it would be of help.
[2022-09-18] MEDS: DIALYSIS (PERIT 1.5%) 2,500 ML 37.5 G/2,500 ML BAG INTRAPERIT SCH (13:31)
[2022-09-18] MEDS: POTASSIUM BICARBONATE/CIT AC 20 MEQ TABLET.EFF NG-TUBE SCH ×2 (13:31→16:07)
--- NOTE | 2022-09-18 13:49 | CT ---
EXAMINATION TYPE: CT brain wo con DATE OF EXAM: 09/18/2022 COMPARISON: 09/14/2022 HISTORY: New onset speech difficulty CT DLP: 1114.1 mGycm Automated exposure control for dose reduction was used. FINDINGS: The area of low attenuation involving the posterior right parietal lobe stable from prior exam sugges ting recent previous exam. Moderate degenerative change of the greater frontal lobe component. Low attenuation in the white ang er nonspecific but most remote ischemia. Calvarium is intact mild changes of mastoiditis. Craniocervi funmilayo junction maintained. IMPRESSION: 1. LOW ATTENUATION IN THE PARIETAL LOBE EXTENDING POSTERIORLY SIMILAR TO THE PREVIOUS EXAM SUGGESTIVE OF RECENT ISCHEMIA. CORRELATE CLINICALLY. 2. NO ACUTE HEMORRHAGE 3. GENERALIZED DEGENERATIVE CHANGE OF THE GREATER FRONTAL LOBE COMPONENT.
--- NOTE | 2022-09-18 15:54 | P.PN ---
Subjective Progress Note Date: 09/18/22 86-year-old male with history of ESRD on peritoneal dialysis, chronic diastolic heart failure, hypertension, gout presents to the ED for altered mental status. Patient was recently admitted on 08/17 and discharged on 08/26 after a syncopal episode, noted to have a third degree heart block, required CPR for cardiac arrest, fitted for pacemaker with external generator and discharged with plans to follow up outpatient with Cardiology for permenant pacemaker placement. He was once again admitted for altered mentaion and hypoxia from 09/08-09/14, found to be volume overloaded. Patient's fluid status was managed with dialysis with Nephrology following and he was discharged saturating well on room air. He pres ented back to the hospital on 09/14 for syncopal episode, hypoxia and confusion with reported O2 saturation in the 60s at home. Nephrology is consulted to resume peritoneal dialysis. Cardiology was consulted with regard to plans for permanent pacemaker. 09/17 Patient seen and examined. No acute events overnight. 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 His tractor trailer truck driver reports that patient usually gets hypoxic when ambulating. Family requesting wound care consult. States that patient appears shaky. 09/18 Patient seen and examined. No acute events overnight. Patient reports continued epigastric pain but unable to describe. He reports a bowel movement yesterday but nursing reports last bowel movement was /6. No more nausea and vomiting. General: nontoxic, no distress, appears at stated age Derm: warm, dry, bilateral heel wounds, has pacemaker with external generator. Head: atraumatic, normocephalic, symmetric Eyes: EOMI, no lid lag, anicteric sclera ENT: Nose and ears atraumatic Cardiovascular: Normal S1 S2, no murmur, no edema Lungs: clear to auscultation bilateral, no rhonchi, no rales, no wheeze, no accessory muscle use, supplemental oxygen Peritoneal dialysis catheter in place. Abdomen slightly distended. Ext: no gross muscle atrophy, muscle strength muscle strength 5 out of 5 in all 4 extremities, no contractures Psych: Alert, oriented, appropriate affect Acute hypoxic respiratory failure secondary to volume overload Syncopal episode possibly related to hypoxia Troponin elevation ESRD on intermittent hemodialysis as well as peritoneal dialysis Hyponatremia Hypokalemia Leukocytosis Bilateral heel wounds present on admission Chronic conditions: Hypertension, Chronic microcytic anemia, third-degree AV block status post pacemaker with external generator, Diastolic CHF Based on my assessment of this patient, this patient meets a high complexity level of care. Patient has an acute diagnosis of acute hypoxic respiratory failure secondary to volume overload in the setting of ESRD that poses a threat to life or bodily function. He is confused as a result of this. Nephrology has been consulted to resume dialysis. Cardiology consulted for workup of syncope. He will be placed on fall precautions. Telemetry monitoring as ordered. Patient is elevated troponins at baseline with regard to his previous admission. ACS has been ruled out. Patient has elevated WBC count of 22.9 to 18.9 today. He does not meet sepsis criteria. No current obvious source of infection. Continue to monitor. Sodium of 125. To be managed with dialysis. His hemoglobin appears at baseline and he has no active signs of bleeding at th is time. Potassium will be replaced per protocol. Attempt to preform home O2 eval when working with PT and OT. Gout - Allopurinol 100 mg PO QD. Hypertension - Lisinoprl 5 mg PO QD, Hydralazine 50 mg PO BID. Heparin SQ for DVT prophylaxis. FULL CODE. I have reviewed the following managed services consultant notes: Nephrology note 09/18, Switch to 2.5% exchanges alternating with 1.5% solution. Cardiology note 09/17, plans for pacemaker in 1-2 days. I have reviewed the results of the following tests: CBC shows WBC count of 18.9, Hg 10.7. BMP shows Na 128, K 3.3, Cl 87, BUN 69, Cr 6.31, glucose 131. I have ordered the following tests: KUB. CBC and BMP ordered for tomorrow morning. I have discussed the care of this patient with the following independent historian: None. I have independently interpreted the following test below: None. I have discussed the management of this patient with the following physician: The case was discussed with Dr. Harris with regard to the plan outlined above. Objective - Vital Signs Vital signs: Vital Signs Temp 99.5 F 09/18/22 13:00 Pulse 74 09/18/22 13:00 Resp 18 09/18/22 13:00 BP 136/52 09/18/22 13:00 Pulse Ox 94 L 09/18/22 13:00 FiO2 Intake & Output 05/09/23 05/10/23 05/10/23 18:59 06:59 18:59 Intake Total 358 Balance 358 Weight 76 kg 75 kg Intake: Oral 358 Other: Voiding Method Diaper Diaper Diaper Incontinent Incontinent Incontinent # Voids 0 0 1 - Labs CBC & Chem 7: 09/18/22 07:51 09/18/22 07:51 Labs: Abnormal Lab Results - Last 24 Hours (Table) 09/18/22 09/18/22 Range/Units 07:51 07:51 WBC 18.9 H (3.8-10.6) k/uL RBC 3.60 L (4.30-5.90) m/uL Hgb 10.7 L (13.0-17.5) gm/dL Hct 34.6 L (39.0-53.0) % RDW 16.7 H (11.5-15.5) % Sodium 128 L (137-145) mmol/L Potassium 3.3 L (3.5-5.1) mmol/L Chloride 87 L (98-107) mmol/L BUN 69 H (9-20) mg/dL Creatinine 6.31 H (0.66-1.25) mg/dL Glucose 131 H (74-99) mg/dL
[2022-09-18] MEDS: ACETAMINOPHEN TAB 325 MG TAB PO PRN (16:07)
[2022-09-18 16:29] LABS: Glucose,Whole Blood 124 mg/dL (70-110)
--- NOTE | 2022-09-18 18:42 | XR ---
EXAMINATION TYPE: XR KUB portable DATE OF EXAM: 09/18/2022 6:08 PM INDICATION: Patient age:Male; 86 years old; Reason for study: Abd pain; COMPARISON: None TECHNIQUE: One radiographic view of the abdomen was obtained. FINDINGS/IMPRESSION: Similar gaseous distention of loops of large bowel compared to 09/18/2022 earlier in the day. Catheter tubing coiled up in the pelvis. No evidence of fracture. Multilevel disc degeneration changes spine. No evidence of small bowel obstruction. Correlate for ileus/fecal stasis.
[2022-09-18] MEDS: HYDROPHILIC CREAM 180 GM TUBE TOPICAL SCH (20:09)
[2022-09-18] MEDS: LACTULOSE 20 GM/30 ML CUP PO SCH (20:21)
[2022-09-19] MEDS: DIALYSIS (PERIT 1.5%) 2,500 ML 37.5 G/2,500 ML BAG INTRAPERIT SCH ×3 (00:17→23:37)
[2022-09-19] MEDS: HEPARIN SODIUM,PORCINE/PF 5,000 UNIT/0.5 ML SYRINGE SQ SCH ×3 (00:17→16:00)
[2022-09-19] MEDS: DIALYSIS (PERIT 2.5%) 2,500 ML 62.5 G/2,500 ML BAG INTRAPERIT SCH ×2 (06:01→16:37)
[2022-09-19] MEDS: MIDODRINE 5 MG TAB PO SCH ×3 (06:54→16:00)
[2022-09-19] MEDS: PANTOPRAZOLE 40 MG TABLET PO SCH (06:56)
[2022-09-19] MEDS ORDERED: CEFEPIME 1 GM in SODIUM CHLORIDE 0.9% 50 ML IVPB SCH (09:00)
[2022-09-19 09:06] LABS: Anisocytosis Slight; HCT 34.4 % (39.0-53.0); HGB 10.5 gm/dL (13.0-17.5); Hypochromasia Slight; MCH 30.2 pg (25.0-35.0); MCHC 30.6 g/dL (31.0-37.0); MCV 98.7 fL (80.0-100.0); Macrocytosis Slight; Mean Platelet Volume 10.9; Platelet Count 213 k/uL (150-450); RBC 3.49 m/uL (4.30-5.90); RDW 16.3 % (11.5-15.5); WBC 16.9 k/uL (3.8-10.6)
[2022-09-19 09:21] LABS: Calcium 10.4 mg/dL (8.4-10.2)
[2022-09-19] MEDS: LACTULOSE 20 GM/30 ML CUP PO SCH ×2 (09:27→19:57)
[2022-09-19] MEDS: LIDOCAINE 5% PATCH TOPICAL SCH (09:27)
[2022-09-19] MEDS: hydrALAZINE HCL 50 MG TAB PO SCH ×3 (09:28→20:08)
[2022-09-19] MEDS: HYDROPHILIC CREAM 180 GM TUBE TOPICAL SCH (09:28)
[2022-09-19] MEDS: allopurinoL 100 MG TAB PO SCH (09:28)
[2022-09-19] MEDS: ANAGRELIDE 0.5 MG CAP PO SCH ×3 (09:28→20:08)
[2022-09-19] MEDS: CALCIUM CARBONATE 500 MG CHEWABLE PO SCH ×3 (09:28→20:08)
[2022-09-19] MEDS: lisinopriL 5 MG TAB PO SCH (09:28)
[2022-09-19] MEDS ORDERED: FUROSEMIDE 10 MG/ML 2 ML VIAL IV ONE (09:54)
[2022-09-19] MEDS ORDERED: Potassium Replacement Protocol 1 EACH MISC MISCELLANE PRN (10:07)
[2022-09-19 11:08] LABS: C Reactive Protein 22.8 mg/dL (<1.0)
--- NOTE | 2022-09-19 11:11 | P.PN ---
Subjective Patient is seen for follow-up for end-stage renal disease. Awake comfortable with no acute distress. UF about 400-200 ML with PD exchanges. Maintained on 2.5% solutions. O2 sats 96% on room air Awaiting pacemaker placement Objective - Vital Signs Vital signs: Vital Signs Temp 97.4 F L 09/19/22 08:00 Pulse 70 09/19/22 08:00 Resp 18 09/19/22 08:00 BP 123/61 09/19/22 08:00 Pulse Ox 100 09/19/22 09:54 FiO2 Intake & Output 09/18/22 09/19/22 09/19/22 18:59 06:59 18:59 Intake Total 120 Output Total 0 Balance 120 Weight 71.5 kg Intake: Oral 120 Output: Urine 0 Other: Voiding Method Diaper Diaper Diaper Incontinent Incontinent Incontinent # Voids 0 0 - Exam Patient is awake, comfortable Complaining of pain in the sacral area Examination of the heart S1 and S2 Examination of the lungs bilateral breath sounds are heard Abdomen is soft nontender Examination lower extremity shows no edema now PASTRY MIXER exam grossly intact Both feet are wrapped - Labs CBC & Chem 7: 09/19/22 08:45 09/19/22 08:45 Labs: Abnormal Lab Results - Last 24 Hours (Table) 09/18/22 09/19/22 09/19/22 Range/Units 16:28 08:45 08:45 WBC 16.9 H (3.8-10.6) k/uL RBC 3.49 L (4.30-5.90) m/uL Hgb 10.5 L (13.0-17.5) gm/dL Hct 34.4 L (39.0-53.0) % MCHC 30.6 L (31.0-37.0) g/dL RDW 16.3 H (11.5-15.5) % Sodium 129 L (137-145) mmol/L Potassium 3.0 L (3.5-5.1) mmol/L Chloride 89 L (98-107) mmol/L Carbon Dioxide 31 H (22-30) mmol/L BUN 66 H (9-20) mg/dL Creatinine 5.87 H (0.66-1.25) mg/dL Glucose 111 H (74-99) mg/dL POC Glucose (mg/dL) 124 H (70-110) mg/dL Calcium 10.4 H (8.4-10.2) mg/dL Assessment and Plan Assessment: 1. End-stage renal disease on peritoneal dialysis. 2. Mild volume overload, improved 3. CK D mineral bone disorder 4. Bilateral heel decubitus ulcers 5. History of fall with no syncope. Blood pressure has not been low. 6. 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 Continue with Aranesp and Rocaltrol along with DARRION inhibitors.
--- NOTE | 2022-09-19 11:31 | P.PN ---
Subjective Progress Note Date: 09/19/22 History of present illness: This is a confused 86-year-old gentleman who was recently discharged. HPI was obtained mostly from the chart. Patient was in the hospital last month with complete heart block and underwent external pacemaker with plans for future permanent pacemaker implantation to be done by Dr. Best. He was most recently admitted with acute kidney injury and hypoxia with evidence of congestive heart failure. He was readmitted this admission initially stated patient had a syncopal episode but upon asking family was more increased confusion and concern for hypoxia. EKG on admission showed paced rhythm and externalized pacemaker is sutured in place to the right chest with transparent dressing in place. Labs show stable renal function with a BUN of 94 and creatinine of 6.3 to the patient does have peritoneal dialysis catheter has been doing this at home. NT proBNP is 24,600 with previous anterior BMP of 34,000. Troponins are minimally elevated but not consistent with acute coronary event. His vital signs within stable. Upon examination the patient answers minimal questions with either yes or no and at times doesn't answer questions at all. He denies any current complaints of chest discomfort or shortness of breath. Does not seem to be aware of why he is here or even that he is in the hospital. 09/16 patient is seen today in follow-up. He has external pacemaker and intact. Plan is for Dr. Best to evaluate and plan for permanent pacemaker implantation. 09/17 Patient seen today in follow up. He complains of upset stomach this morning. Answering questions more appropriatelly with intermitent confusion. No complaints of shortness of breath. Family is at the bedside and discussed plan for permanent pacemaker and next 1-2 days. Echocardiogram reveals EF of 50%, borderline increased left ventricular wall thickness, mild aortic sclerosis. No pericardial effusion. 09/18 Patient is seen today in follow up. No change in condition. He is continued on CAPD. Patient is afebrile. BP 141/58, HR 69, PO 96% RA. 09/19 Patient is seen today in follow-up. He is less alert, appears to be in some minimal respiratory distress. IV Lasix added 1 dose. Patient continues to have leukocytosis 16.9, hemoglobin is 10.5. Sodium 129, potassium 3, chloride 89, CO2 31, BUN 66 and creatinine 5.87. Physical examination: Gen: This is an 86-year-old male patient resting in bed in no acute distress. VS: reviewed HEENT: Head is atraumatic, normocephalic. Pupils equal, round. Sclerae is anicteric. NECK: Supple. No JVD. LUNGS: Crackles. No intercostal retractions. HEART: Regular rate and rhythm. Systolic murmur. ABDOMEN: Soft No tenderness. EXTREMITIES: No pedal edema. No calf tenderness. NEUROLOGICAL: Patient is awake, oriented to person. Assessment: #1 complete heart block, currently has externalized pacemaker #2 chronic diastolic congestive heart failure #3 end-stage renal disease on peritoneal dialysis #4 advanced dementia #5 moderate to severe mitral regurgitation Plan: continue current cardiac medications 1 dose of IV Lasix 20 mg ordered Plan is for permanent pacemaker implantation during this hospitalization once leukocytosis improved/resolved. Further recommendations to follow based upon clinical course Nurse practitioner note has been reviewed, I agree with documented findings and plan of care. Patient was seen and examined. Objective - Vital Signs Vital signs: Vital Signs Temp 98.5 F 09/19/22 06:10 Pulse 71 09/19/22 06:10 Resp 18 09/19/22 06:10 BP 134/61 09/19/22 06:10 Pulse Ox 99 09/19/22 06:10 FiO2 Intake & Output 09/18/22 09/19/22 09/19/22 18:59 06:59 18:59 Weight 71.5 kg Other: Voiding Method Diaper Diaper Incontinent Incontinent # Voids 0 0 - Labs CBC & Chem 7: 09/19/22 08:45 09/19/22 08:45 Labs: Abnormal Lab Results - Last 24 Hours (Table) 09/18/22 09/19/22 09/19/22 Range/Units 16:28 08:45 08:45 WBC 16.9 H (3.8-10.6) k/uL RBC 3.49 L (4.30-5.90) m/uL Hgb 10.5 L (13.0-17.5) gm/dL Hct 34.4 L (39.0-53.0) % MCHC 30.6 L (31.0-37.0) g/dL RDW 16.3 H (11.5-15.5) % Sodium 129 L (137-145) mmol/L Potassium 3.0 L (3.5-5.1) mmol/L Chloride 89 L (98-107) mmol/L Carbon Dioxide 31 H (22-30) mmol/L BUN 66 H (9-20) mg/dL Creatinine 5.87 H (0.66-1.25) mg/dL Glucose 111 H (74-99) mg/dL POC Glucose (mg/dL) 124 H (70-110) mg/dL Calcium 10.4 H (8.4-10.2) mg/dL
[2022-09-19] MEDS: POTASSIUM CHLORIDE ER 20 MEQ TAB.ER PO SCH ×2 (11:40→12:26)
--- NOTE | 2022-09-19 15:50 | FL ---
EXAMINATION TYPE: FL barium swallow w video DATE OF EXAM: 09/19/2022 CLINICAL HISTORY: 86-year-old male rule out aspiration, throat clearing at the bedside, underlying de mentia . TECHNIQUE: Deglutition study is performed utilizing thin liquid barium, honey and nectar thick liqui d barium, barium thick applesauce, and barium coated cracker. COMPARISON: None. Total fluoroscopy time: 3 minutes 35 seconds. Total images: None. Real-time fluoroscopy support was provided to speech pathology. DOSE AREA PRODUCT (DAP) UGY*M,MGY*EI=329.75 FINDINGS: Swallow initiation was mildly delayed with bolus free spilling to the level of the vallecula. Normal mastication is seen with solid modalities tested. There is no evidence of penetration or aspi ration with any modality tested. There are mild vallecular residuals with increasing viscosities. IMPRESSION: Mildly delayed swallow. Mild residuals particularly with a thicker viscosities. No penetration or asp iration seen. Please refer to speech therapist notes for further details if necessary.
--- NOTE | 2022-09-19 15:56 | P.PN ---
Subjective Progress Note Date: 09/19/22 86-year-old male with history of ESRD on peritoneal dialysis, chronic diastolic heart failure, hypertension, gout presents to the ED for altered mental status. Patient was recently admitted on 08/17 and discharged on 08/26 after a syncopal episode, noted to have a third degree heart block, required CPR for cardiac arrest, fitted for pacemaker with external generator and discharged with plans to follow up outpatient with Cardiology for permenant pacemaker placement. He was once again admitted for altered mentaion and hypoxia from 09/08-09/14, found to be volume overloaded. Patient's fluid status was managed with dialysis with Nephrology following and he was discharged saturating well on room air. He pres ented back to the hospital on 09/14 for syncopal episode, hypoxia and confusion with reported O2 saturation in the 60s at home. Nephrology is consulted to resume peritoneal dialysis. Cardiology was consulted with regard to plans for permanent pacemaker. 09/17 Patient seen and examined. No acute events overnight. and curriculum director at bedside. His curriculum director reports that patient usually gets hypoxic when ambulating. Family requesting wound care consult. States that patient appears shaky. 09/18 Patient seen and examined. No acute events overnight. Patient reports continued epigastric pain but unable to describe. He reports a bowel movement yesterday but nursing reports last bowel movement was 5/6. No more nausea and vomiting. 09/19 Patient seen and examined. Infectious disease consulted for worsening leukocytosis and cefdinir switched to cefepime. His mentation appears at baseline this morning. He denies any complaints besides feeling hot and cold. General: nontoxic, no distress, appears at stated age Derm: warm, dry, bilateral heel wounds, has pacemaker with external generator. Head: atraumatic, normocephalic, symmetric Eyes: EOMI, no lid lag, anicteric sclera ENT: Nose and ears atraumatic Cardiovascular: Normal S1 S2, no murmur, no edema Lungs: clear to auscultation bilateral, no rhonchi, no rales, no wheeze, no accessory muscle use, supplemental oxygen Peritoneal dialysis catheter in place. Abdomen slightly distended. Ext: no gross muscle atrophy, muscle strength muscle strength 5 out of 5 in all 4 extremities, no contractures Psych: Alert, oriented, appropriate affect Acute metabolic encephalopathy with Leukocytosis and dysphagia Acute hypoxic respiratory failure secondary to volume overload Syncopal episode possibly related to hypoxia Troponin elevation ESRD on intermittent hemodialysis as well as peritoneal dialysis Hyponatremia Hypokalemia Bilateral heel wounds present on admission Chronic conditions: Hypertension, Chronic microcytic anemia, third-degree AV block status post pacemaker with external generator, Diastolic CHF Based on my assessment of this patient, this patient meets a high complexity level of care. Patient has an acute diagnosis of acute hypoxic respiratory failure secondary to volume overload in the setting of ESRD that poses a threat to life or bodily function. He is confused as a result of this. Nephrology has been consulted to resume dialysis. Cardiology consulted for workup of syncope. He will be placed on fall precautions. Telemetry monitoring as ordered. Patient is elevated troponins at baseline with regard to his previous admission. ACS has been ruled out. Patient has elevated WBC count of 22.9 to 18.9 to 16.9 today. He does not meet sepsis criteria. No current obvious source of infection. Cefdinir switching to Cefepime 1 g IV BID for infectious workup due to confusion on 09/18. UA shows trace LE. KUB showing fecal stasis, patient has been started on Lactulose. CT brain ordered yesterday for worsening confusion, low attenuation in the parietal lobe with no acute findings. Infectious disease consulted. Sodium of 129. To be managed with dialysis. His hemoglobin appears at baseline and he has no active signs of bleeding at this time. Potassium will be replaced per protocol. Attempt to preform home O2 eval when working with PT and OT. Gout - Allopurinol 100 mg PO QD. Hypertension - Lisinoprl 5 mg PO QD, Hydralazine 50 mg PO BID. Heparin SQ for DVT prophylaxis. FULL CODE. I have reviewed the following human resources consultant notes: Nephrology note 09/19, continue PD exchanges. I have reviewed the results of the following tests: CBC shows WBC count of 16.9, Hg 10.5. BMP shows Na 129, K 3, Cl 89, bicarb of 31, BUN 66, Cr 5.87, glucose 111. KUB showing fecal stasis, patient has been started on Lactulose. CT brain ordered yesterday for worsening confusion, low attenuation in the parietal lobe with no acute findings. UA shows trace LE. I have ordered the following tests: CBC and BMP ordered for tomorrow morning. Peritoneal fluid analysis pending. Urine culture and blood culture pending. Video swallow ordered for dysphagia. Pro-calcitonin ordered. I have discussed the care of this patient with the following independent historian: None. I have independently interpreted the following test below: None. I have discussed the management of this patient with the following physician: The case was discussed with Otilia CANTOR with Cardiology, plans for PPM this admission after leukocytosis is worked up. Objective - Vital Signs Vital signs: Vital Signs Temp 97.5 F L 09/19/22 13:00 Pulse 69 09/19/22 13:00 Resp 18 09/19/22 13:00 BP 107/52 09/19/22 13:00 Pulse Ox 94 L 09/19/22 13:00 FiO2 Intake & Output 09/18/22 09/19/22 09/19/22 18:59 06:59 18:59 Intake Total 120 Output Total 0 Balance 120 Weight 71.5 kg Intake: Oral 120 Output: Urine 0 Other: Voiding Method Diaper Diaper Diaper Incontinent Incontinent Incontinent # Voids 0 0 - Labs CBC & Chem 7: 09/19/22 08:45 09/19/22 08:45 Labs: Abnormal Lab Results - Last 24 Hours (Table) 09/18/22 09/19/22 09/19/22 Range/Units 16:28 08:45 08:45 WBC 16.9 H (3.8-10.6) k/uL RBC 3.49 L (4.30-5.90) m/uL Hgb 10.5 L (13.0-17.5) gm/dL Hct 34.4 L (39.0-53.0) % MCHC 30.6 L (31.0-37.0) g/dL RDW 16.3 H (11.5-15.5) % Sodium 129 L (137-145) mmol/L Potassium 3.0 L (3.5-5.1) mmol/L Chloride 89 L (98-107) mmol/L Carbon Dioxide 31 H (22-30) mmol/L BUN 66 H (9-20) mg/dL Creatinine 5.87 H (0.66-1.25) mg/dL Glucose 111 H (74-99) mg/dL POC Glucose (mg/dL) 124 H (70-110) mg/dL Calcium 10.4 H (8.4-10.2) mg/dL C-Reactive Protein 22.8 H (<1.0) mg/dL Microbiology - Last 24 Hours (Table) 09/19/22 06:45 Urine Culture - Preliminary Urine,Catheterized
--- NOTE | 2022-09-19 22:12 | P.CONS ---
History of Present Illness - Reason for Consult Consult date: 09/19/22 - History of Present Illness Patient is 86-year-old male with multiple comorbidities including heart failure heart block requiring transvenous pacemaker placement also with a history of end-stage renal disease on peritoneal dialysis presenting to the hospital 09/14/2022" apparently the patient had a syncopal episode patient apparently was noticed to be hypoxic at home and did have a fall few days prior to that patient on presentation to the hospital was afebrile and no fever has been recorded during this hospital stay except some low-grade fever overnight and 0.5 F yesterday patient has been hypoxic especially on 09/17/2022 requiring supplemental oxygen and the patient is currently on 2 L nasal cannula patient did have a white count 12.4 on admission which is up to 22.9 on 09/17/2022 that has prompted this infectious disease consultation did have elevated troponin levels in the normal CT of the brain has been negative for any bleed patient did have a KUB x-ray gaseous distention of loops of large bowel no evidence of small bowel obstruction correlate for ileus patient was started on cefepime consult i nfectious disease because of his elevated white count the patient was on Rocephin patient currently denies having any fever any chills no headache or chest pain or shortness with occasional cough not bringing up any sputum no nausea no vomiting denies any abdominal pain no diarrhea peritoneal fluid looks clear at the time of dialysis as reported by the nursing staff Past Medical History Past Medical History: Heart Failure, Dialysis, Hypertension, Prostate Disorder, Renal Disease Additional Past Medical History / Comment(s): CURRENTLY DOING HEMODIALYSIS @ [facility] ([facility] Thrombocytemia/elevated platelets. CKD stage IV. Anemia. BPH. Gout R great toe History of Any Multi-Drug Resistant Organisms: None Reported Past Surgical History: Pacemaker, Tonsillectomy Additional Past Surgical History / Comment(s): SUBCLAVIAN SHUNT? BMA with biops y. R hand index finger injury/partial amp. Colonoscopy. peritoneal dialysis Past Anesthesia/Blood Transfusion Reactions: No Reported Reaction Type of Cardiac Device: Permanent Pacemaker Device Placement Date:: 09/09/22 Past Psychological History: No Psychological Hx Reported Smoking Status: Never smoker Past Alcohol Use History: Rare Past Drug Use History: None Reported - Past Family History Father Family Medical History: Cancer, Hypertension, Renal Disease Additional Family Medical History / Comment(s): Kidney Cancer Mother Family Medical History: No Reported History Additional Family Medical History / Comment(s): Mother was healthy Medications and Allergies Home Medications Medication Instructions Recorded Confirmed Type Tamsulosin HCl [Flomax] 0.4 mg PO BID 05/24/14 09/14/22 History Anagrelide HCl [Agrylin] 1 mg PO TID 11/08/20 09/14/22 History Vit B Complx C/Folic Acid/Zinc 1 tab PO DAILY 03/19/21 09/14/22 History [Renaplex Tablet] Acetaminophen Tab [Tylenol] 650 mg PO Q4H PRN 08/17/22 09/14/22 History Calcium Carbonate [Tums] 1,000 mg PO TID 08/17/22 09/14/22 History Pantoprazole Sodium [Protonix] 40 mg PO DAILY 08/17/22 09/14/22 History allopurinoL [Zyloprim] 100 mg PO DAILY 08/17/22 09/14/22 History calcitrioL [Calcitriol] 0.25 mcg PO MOTUWETHFR 08/17/22 09/14/22 History hydrALAZINE HCL [Apresoline] 50 mg PO BID 08/17/22 09/14/22 History Darbepoetin Abraham [Aranesp] 40 mcg SQ Q7D #30 each 08/27/22 09/14/22 Rx lisinopriL [Zestril] 5 mg PO DAILY #90 tab 08/27/22 09/14/22 Rx Lidocaine 5% Patch [Lidoderm 5% 1 patch TRANSDERM DAILY 09/14/22 09/14/22 History Patch] Allergies Allergy/AdvReac Type Severity Reaction Status Date / Time No Known Allergies Allergy Verified 09/14/22 20:41 Physical Exam Vitals: Vital Signs Temp Pulse Pulse Pulse Resp BP BP 09/19/22 09:54 09/19/22 08:00 97.4 F L 70 18 123/61 09/19/22 06:10 98.5 F 71 18 134/61 09/19/22 04:00 98.6 F 73 18 154/76 09/19/22 02:00 73 09/19/22 00:25 98.5 F 80 18 169/68 09/19/22 00:00 98.5 F 80 20 169/68 09/18/22 20:00 98.8 F 75 20 166/83 09/18/22 18:37 99.0 F 73 18 116/47 09/18/22 16:05 99.0 F 89 20 104/52 09/18/22 13:32 99.5 F 74 18 136/52 09/18/22 13:00 99.5 F 74 18 136/52 09/18/22 11:40 Pulse Ox Pulse Ox Pulse Ox 09/19/22 09:54 100 09/19/22 08:00 95 09/19/22 06:10 99 09/19/22 04:00 96 09/19/22 02:00 09/19/22 00:25 98 09/19/22 00:00 98 09/18/22 20:00 94 L 09/18/22 18:37 93 L 09/18/22 16:05 94 L 09/18/22 13:32 94 L 09/18/22 13:00 94 L 09/18/22 11:40 95 93 L Intake and Output 09/18/22 09/19/22 09/19/22 22:59 06:59 14:59 Intake Total 120 Output Total 0 Balance 120 Intake: Oral 120 Output: Urine 0 Other: Voiding Method Diaper Diaper Diaper Incontinent Incontinent Incontinent # Voids 0 0 Weight 71.5 kg Results CBC & Chem 7: 09/19/22 08:45 09/19/22 08:45 Labs: Abnormal Lab Results - Last 24 Hours (Table) 09/18/22 09/19/22 09/19/22 Range/Units 16:28 08:45 08:45 WBC 16.9 H (3.8-10.6) k/uL RBC 3.49 L (4.30-5.90) m/uL Hgb 10.5 L (13.0-17.5) gm/dL Hct 34.4 L (39.0-53.0) % MCHC 30.6 L (31.0-37.0) g/dL RDW 16.3 H (11.5-15.5) % Sodium 129 L (137-145) mmol/L Potassium 3.0 L (3.5-5.1) mmol/L Chloride 89 L (98-107) mmol/L Carbon Dioxide 31 H (22-30) mmol/L BUN 66 H (9-20) mg/dL Creatinine 5.87 H (0.66-1.25) mg/dL Glucose 111 H (74-99) mg/dL POC Glucose (mg/dL) 124 H (70-110) mg/dL Calcium 10.4 H (8.4-10.2) mg/dL C-Reactive Protein 22.8 H (<1.0) mg/dL Assessment and Plan Plan: 1patient with elevated white count in this patient presented to hospital with syncopal episode did have hypoxemia requiring supplemental oxygen, also with a cough with a question of possible pneumonia versus SBP as there is no evidence of any cellulitis at his pacemaker site no evidence of any joint swelling abdomen was soft medical examination to 2-we will wait for the peritoneal fluid cell count differential and culture also waiting for CRP and procalcitonin and blood culture for this morning those will be followed 3-Patient with bilateral heel unstageable pressure ulcer right greater than left with a necrotic base but no surrounding redness no evidence of any cellulitis local care to continue with a dry protective dressing keep the area of the pressure 4-patient to continue empiric cefepime at this point while waiting for the work- up to be completed We will follow on clinical condition and cultures to further adjust medication if needed Thank you for this consultation we will follow the patient along with you Time with Patient: Greater than 30
[2022-09-20] MEDS: HEPARIN SODIUM,PORCINE/PF 5,000 UNIT/0.5 ML SYRINGE SQ SCH ×4 (01:03→23:38)
[2022-09-20] MEDS: DIALYSIS (PERIT 2.5%) 2,500 ML 62.5 G/2,500 ML BAG INTRAPERIT SCH ×2 (05:21→16:41)
[2022-09-20] MEDS: MIDODRINE 5 MG TAB PO SCH ×3 (05:58→16:40)
[2022-09-20] MEDS: PANTOPRAZOLE 40 MG TABLET PO SCH (05:58)
--- NOTE | 2022-09-20 07:00 | XR ---
EXAMINATION TYPE: XR chest 1V DATE OF EXAM: 09/20/2022 6:54 AM COMPARISON: Chest radiographs from 09/14/2022 TECHNIQUE: XR chest 1V Frontal and lateral views of the chest. CLINICAL INDICATION:Male, 86 years old with history of pneumonia; FINDINGS: Lungs/Pleura: Blunting of the left costophrenic angle. No focal consolidation or pneumothorax. No foc al consolidation. Pulmonary vascularity: Prominent central perihilar vessels redemonstrated. Heart/mediastinum: Cardiomediastinal silhouette is enlarged and stable. Ascending thoracic aortic ane urysm demonstrated. Atherosclerotic calcifications are seen in the aorta. Single-lead cardiac conduct ion device overlying the right hemithorax with lead projecting over the right ventricle. Musculoskeletal: No acute osseous pathology. IMPRESSION: Small left pleural effusion with persistent cardiomegaly.
[2022-09-20] MEDS: LACTULOSE 20 GM/30 ML CUP PO SCH ×2 (08:14→20:24)
[2022-09-20] MEDS: ANAGRELIDE 0.5 MG CAP PO SCH ×3 (08:19→20:23)
[2022-09-20] MEDS: allopurinoL 100 MG TAB PO SCH (08:19)
[2022-09-20] MEDS: LIDOCAINE 5% PATCH TOPICAL SCH (08:19)
[2022-09-20] MEDS: CEFEPIME 1 GM in SODIUM CHLORIDE 0.9% 50 ML IVPB SCH (08:20)
[2022-09-20] MEDS: lisinopriL 5 MG TAB PO SCH (08:20)
[2022-09-20] MEDS: CALCIUM CARBONATE 500 MG CHEWABLE PO SCH ×3 (08:20→20:23)
[2022-09-20] MEDS: HYDROPHILIC CREAM 180 GM TUBE TOPICAL SCH (08:20)
[2022-09-20] MEDS: hydrALAZINE HCL 50 MG TAB PO SCH ×2 (08:20→20:23)
[2022-09-20 10:46] LABS: Anisocytosis Slight; HCT 35.6 % (39.0-53.0); HGB 10.7 gm/dL (13.0-17.5); Hypochromasia Moderate; MCH 29.6 pg (25.0-35.0); MCV 98.9 fL (80.0-100.0); Macrocytosis Slight; Mean Platelet Volume 11.8; Platelet Count 201 k/uL (150-450); RDW 16.4 % (11.5-15.5); WBC 16.2 k/uL (3.8-10.6)
[2022-09-20 11:02] LABS: Calcium 10.4 mg/dL (8.4-10.2); Potassium 3.3 mmol/L (3.5-5.1)
[2022-09-20] MEDS: POTASSIUM CHLORIDE ER 20 MEQ TAB.ER PO SCH ×2 (11:48→13:26)
[2022-09-20] MEDS: DIALYSIS (PERIT 1.5%) 2,500 ML 37.5 G/2,500 ML BAG INTRAPERIT SCH ×2 (12:04→23:38)
--- NOTE | 2022-09-20 13:32 | P.PN ---
Subjective Progress Note Date: 09/20/22 History of present illness: This is a confused 86-year-old gentleman who was recently discharged. HPI was obtained mostly from the chart. Patient was in the hospital last month with complete heart block and underwent external pacemaker with plans for future permanent pacemaker implantation to be done by Dr. Best. He was most recently admitted with acute kidney injury and hypoxia with evidence of congestive heart failure. He was readmitted this admission initially stated patient had a syncopal episode but upon asking family was more increased confusion and concern for hypoxia. EKG on admission showed paced rhythm and externalized pacemaker is sutured in place to the right chest with transparent dressing in place. Labs show stable renal function with a BUN of 94 and creatinine of 6.3 to the patient does have peritoneal dialysis catheter has been doing this at home. NT proBNP is 24,600 with previous anterior BMP of 34,000. Troponins are minimally elevated but not consistent with acute coronary event. His vital signs within stable. Upon examination the patient answers minimal questions with either yes or no and at times doesn't answer questions at all. He denies any current complaints of chest discomfort or shortness of breath. Does not seem to be aware of why he is here or even that he is in the hospital. 09/16 patient is seen today in follow-up. He has external pacemaker and intact. Plan is for Dr. Best to evaluate and plan for permanent pacemaker implantation. 09/17 Patient seen today in follow up. He complains of upset stomach this morning. Answering questions more appropriatelly with intermitent confusion. No complaints of shortness of breath. Family is at the bedside and discussed plan for permanent pacemaker and next 1-2 days. Echocardiogram reveals EF of 50%, borderline increased left ventricular wall thickness, mild aortic sclerosis. No pericardial effusion. 09/18 Patient is seen today in follow up. No change in condition. He is continued on CAPD. Patient is afebrile. BP 141/58, HR 69, PO 96% RA. 09/19 Patient is seen today in follow-up. He is less alert, appears to be in some minimal respiratory distress. IV Lasix added 1 dose. Patient continues to have leukocytosis 16.9, hemoglobin is 10.5. Sodium 129, potassium 3, chloride 89, CO2 31, BUN 66 and creatinine 5.87. 09/20 Patient is seen today in follow-up. Patient is having lunch. No new concerns from the patient. He remains afebrile, heart rate in the 70s, blood pressure 127/65, pulse ox 97% on room air. Telemetry is paced rhythm. Patient continues to have leukocytosis 16.2. Dr. Roach is now on consult. Physical examination: Gen: This is an 86-year-old male patient resting in bed in no acute distress. VS: reviewed HEENT: Head is atraumatic, normocephalic. Pupils equal, round. Sclerae is anicteric. NECK: Supple. No JVD. LUNGS: Crackles. No intercostal retractions. HEART: Regular rate and rhythm. Systolic murmur. ABDOMEN: Soft No tenderness. EXTREMITIES: No pedal edema. No calf tenderness. NEUROLOGICAL: Patient is awake, oriented to person. Assessment: #1 complete heart block, currently has externalized pacemaker #2 chronic diastolic congestive heart failure #3 end-stage renal disease on peritoneal dialysis #4 advanced dementia #5 moderate to severe mitral regurgitation Plan: continue current cardiac medications Plan is for permanent pacemaker implantation during this hospitalization once leukocytosis improved/resolved. Further recommendations to follow based upon clinical course Nurse practitioner note has been reviewed, I agree with documented findings and plan of care. Patient was seen and examined. Objective - Vital Signs Vital signs: Vital Signs Temp 97.6 F 09/20/22 08:00 Pulse 72 09/20/22 08:00 Resp 18 09/20/22 08:00 BP 127/65 09/20/22 08:00 Pulse Ox 97 09/20/22 08:00 FiO2 Intake & Output 09/19/22 09/20/22 09/20/22 18:59 06:59 18:59 Intake Total 360 240 Output Total 0 Balance 360 240 Weight 70.5 kg Intake: Oral 360 240 Output: Urine 0 Other: Voiding Method Diaper Diaper Diaper Incontinent Incontinent Incontinent # Voids 1 # Bowel Movements 2 - Labs CBC & Chem 7: 09/20/22 09:36 09/20/22 09:36 Labs: Abnormal Lab Results - Last 24 Hours (Table) 09/19/22 09/20/22 09/20/22 Range/Units 08:45 09:36 09:36 WBC 16.2 H (3.8-10.6) k/uL RBC 3.60 L (4.30-5.90) m/uL Hgb 10.7 L (13.0-17.5) gm/dL Hct 35.6 L (39.0-53.0) % MCHC 30.0 L (31.0-37.0) g/dL RDW 16.4 H (11.5-15.5) % Sodium 127 L (137-145) mmol/L Potassium 3.3 L (3.5-5.1) mmol/L Chloride 90 L (98-107) mmol/L BUN 68 H (9-20) mg/dL Creatinine 5.88 H (0.66-1.25) mg/dL Glucose 102 H (74-99) mg/dL Calcium 10.4 H (8.4-10.2) mg/dL Procalcitonin 12.60 H (0.02-0.09) ng/mL Microbiology - Last 24 Hours (Table) 09/19/22 06:45 Urine Culture - Final Urine,Catheterized
--- NOTE | 2022-09-20 14:03 | P.PN ---
Subjective Progress Note Date: 09/20/22 86-year-old male with history of ESRD on peritoneal dialysis, chronic diastolic heart failure, hypertension, gout presents to the ED for altered mental status. Patient was recently admitted on 08/17 and discharged on 08/26 after a syncopal episode, noted to have a third degree heart block, required CPR for cardiac arrest, fitted for pacemaker with external generator and discharged with plans to follow up outpatient with Cardiology for permenant pacemaker placement. He was once again admitted for altered mentaion and hypoxia from 09/08-09/14, found to be volume overloaded. Patient's fluid status was managed with dialysis with Nephrology following and he was discharged saturating well on room air. He pres ented back to the hospital on 09/14 for syncopal episode, hypoxia and confusion with reported O2 saturation in the 60s at home. Nephrology is consulted to resume peritoneal dialysis. Cardiology was consulted with regard to plans for permanent pacemaker. 09/17 Patient seen and examined. No acute events overnight. and public health administrator at bedside. His public health administrator reports that patient usually gets hypoxic when ambulating. Family requesting wound care consult. States that patient appears shaky. 09/18 Patient seen and examined. No acute events overnight. Patient reports continued epigastric pain but unable to describe. He reports a bowel movement yesterday but nursing reports last bowel movement was 5/6. No more nausea and vomiting. 09/19 Patient seen and examined. Infectious disease consulted for worsening leukocytosis and cefdinir switched to cefepime. His mentation appears at baseline this morning. He denies any complaints besides feeling hot and cold. 09/20 Patient seen and examined. He has 2 bowel movements yesterday and 1 today. Patient reports improvement in his abdominal pain. He continues to have persistent leukocytosis of 16.2. CRP is elevated at 22.8. Procalcitonin elevated at 12.6. General: nontoxic, no distress, appears at stated age Derm: warm, dry, bilateral heel wounds, has pacemaker with external generator. Head: atraumatic, normocephalic, symmetric Eyes: EOMI, no lid lag, anicteric sclera ENT: Nose and ears atraumatic Cardiovascular: Normal S1 S2, no murmur, no edema Lungs: clear to auscultation bilateral, no rhonchi, no rales, no wheeze, no accessory muscle use, supplemental oxygen Peritoneal dialysis catheter in place. Abdomen slightly distended. Ext: no gross muscle atrophy, muscle strength muscle strength 5 out of 5 in all 4 extremities, no contractures Psych: Alert, oriented, appropriate affect Acute metabolic encephalopathy with Leukocytosis and dysphagia Acute hypoxic respiratory failure secondary to volume overload Syncopal episode possibly related to hypoxia Troponin elevation ESRD on intermittent hemodialysis as well as peritoneal dialysis Hyponatremia Hypokalemia Bilateral heel wounds present on admission Chronic conditions: Hypertension, Chronic microcytic anemia, third-degree AV block status post pacemaker with external generator, Diastolic CHF Based on my assessment of this patient, this patient meets a moderate complexity level of care. Patient has an acute diagnosis of acute hypoxic respiratory failure secondary to volume overload in the setting of ESRD that poses a threat to life or bodily function. He is confused as a result of this. Nephrology has been consulted to resume dialysis. Cardiology consulted for workup of syncope, plans for PPM when infectious workup is complete. He will be placed on fall precautions. Telemetry monitoring as ordered. Patient is elevated troponins at baseline with regard to his previous admission. ACS has been ruled out. Patient has elevated WBC count of 22.9 to 18.9 to 16.9 to 16.2 today. He does not meet sepsis criteria. No current obvious source of infection. Cefdinir switching to Cefepime 1 g IV BID for infectious workup due to confusion on 09/18. UA shows trace LE. KUB showing fecal stasis, patient has been started on Lactulose. CT brain ordered yesterday for worsening confusion, low attenuation in the parietal lobe with no acute findings. CRP is elevated at 22.8. Procalcitonin elevated at 12.6. Infectious disease on board. Sodium of 127. To be managed with dialysis. His hemoglobin appears at baseline and he has no active signs of bleeding at this time. Potassium will be replaced per protocol. Attempt to preform home O2 eval when working with PT and OT. Gout - Allopurinol 100 mg PO QD. Hypertension - Lisinoprl 5 mg PO QD, Hydralazine 50 mg PO BID. Heparin SQ for DVT prophylaxis. FULL CODE. I have reviewed the following [employer] consultant notes: Cardiology note 09/20, PPM once leukocytosis improves. I have reviewed the results of the following tests: CBC shows WBC count of 16.2, Hg 10.7. BMP shows Na 127, K 3.3, Cl 90, BUN 68, Cr 5.85, glucose 102. Urine culture negative. Video swallow shows no aspiration. I have ordered the following tests: CBC and BMP ordered for tomorrow morning. Peritoneal fluid analysis pending. Blood culture pending. I have discussed the care of this patient with the following independent historian: None. I have independently interpreted the following test below: None. I have discussed the management of this patient with the following physician: None. Objective - Vital Signs Vital signs: Vital Signs Temp 98 F 09/20/22 12:10 Pulse 77 09/20/22 12:10 Resp 18 09/20/22 12:10 BP 93/55 09/20/22 12:10 Pulse Ox 95 09/20/22 12:10 FiO2 Intake & Output 09/19/22 09/20/22 09/20/22 18:59 06:59 18:59 Intake Total 360 480 Output Total 0 Balance 360 480 Weight 70.5 kg 70.5 kg Intake: Oral 360 480 Output: Urine 0 Other: Voiding Method Diaper Diaper Diaper Incontinent Incontinent Incontinent # Voids 1 # Bowel Movements 2 1 - Labs CBC & Chem 7: 09/20/22 09:36 09/20/22 09:36 Labs: Abnormal Lab Results - Last 24 Hours (Table) 09/19/22 09/20/22 09/20/22 Range/Units 08:45 09:36 09:36 WBC 16.2 H (3.8-10.6) k/uL RBC 3.60 L (4.30-5.90) m/uL Hgb 10.7 L (13.0-17.5) gm/dL Hct 35.6 L (39.0-53.0) % MCHC 30.0 L (31.0-37.0) g/dL RDW 16.4 H (11.5-15.5) % Sodium 127 L (137-145) mmol/L Potassium 3.3 L (3.5-5.1) mmol/L Chloride 90 L (98-107) mmol/L BUN 68 H (9-20) mg/dL Creatinine 5.88 H (0.66-1.25) mg/dL Glucose 102 H (74-99) mg/dL Calcium 10.4 H (8.4-10.2) mg/dL Procalcitonin 12.60 H (0.02-0.09) ng/mL Microbiology - Last 24 Hours (Table) 09/19/22 06:45 Urine Culture - Final Urine,Catheterized
[2022-09-20 14:16] LABS: Band Neutrophils % 4 %; Eosinophils # (M) 0.16 k/uL (0-0.7); Lymphocytes # (M) 0.81 k/uL (1.0-4.8); Metamyelocytes # (M) 0.49 k/uL (0); Metamyelocytes % 3 %; Monocytes # (M) 1.46 k/uL (0-1.0); Myelocytes # (M) 0.32 k/uL (0); Myelocytes % 2 %; Neutrophils % (M) 78 %; Nucleated Red Blood Cells 0 /100 WBC (0-0); Total Cells Counted 200
--- NOTE | 2022-09-20 14:45 | P.PN ---
Subjective Progress Note Date: 09/20/22 Principal diagnosis: Leukocytosis Patient is 86-year-old male with multiple comorbidities including heart failure heart block requiring transvenous pacemaker placement also with a history of end-stage renal disease on peritoneal dialysis presenting to the hospital 09/14/2022" apparently the patient had a syncopal episode, patient also noticed to have elevated white count and elevated inflammatory markers On today's evaluation and that is 09/20/2022, the patient is afebrile, the patient is breathing comfortably on 2 L nasal cannula. Denies having any chest pain did have some cough but no sputum production, no nausea no vomiting no abdominal and no diarrhea has been reported Objective - Vital Signs Vital signs: Vital Signs Temp 97.6 F 09/20/22 08:00 Pulse 72 09/20/22 08:00 Resp 18 09/20/22 08:00 BP 127/65 09/20/22 08:00 Pulse Ox 97 09/20/22 08:00 FiO2 Intake & Output 09/19/22 09/20/22 09/20/22 18:59 06:59 18:59 Intake Total 360 240 Output Total 0 Balance 360 240 Weight 70.5 kg Intake: Oral 360 240 Output: Urine 0 Other: Voiding Method Diaper Diaper Diaper Incontinent Incontinent Incontinent # Voids 1 # Bowel Movements 2 - Exam GENERAL DESCRIPTION: An elderly male lying in bed in no distress RESPIRATORY SYSTEM: Unlabored breathing , decreased breath sounds at bases HEART: S1 S2 regular rate and rhythm , ABDOMEN: Soft , no tenderness EXTREMITIES: Bilateral heel wounds are currently dressed - Labs CBC & Chem 7: 09/20/22 09:36 09/20/22 09:36 Labs: Abnormal Lab Results - Last 24 Hours (Table) 09/19/22 09/20/22 09/20/22 Range/Units 08:45 09:36 09:36 WBC 16.2 H (3.8-10.6) k/uL RBC 3.60 L (4.30-5.90) m/uL Hgb 10.7 L (13.0-17.5) gm/dL Hct 35.6 L (39.0-53.0) % MCHC 30.0 L (31.0-37.0) g/dL RDW 16.4 H (11.5-15.5) % Sodium 127 L (137-145) mmol/L Potassium 3.3 L (3.5-5.1) mmol/L Chloride 90 L (98-107) mmol/L BUN 68 H (9-20) mg/dL Creatinine 5.88 H (0.66-1.25) mg/dL Glucose 102 H (74-99) mg/dL Calcium 10.4 H (8.4-10.2) mg/dL Procalcitonin 12.60 H (0.02-0.09) ng/mL Microbiology - Last 24 Hours (Table) 09/19/22 06:45 Urine Culture - Final Urine,Catheterized Assessment and Plan (1) Leukocytosis Current Visit: Yes Status: Acute Code(s): D72.829 - ELEVATED WHITE BLOOD CELL COUNT, UNSPECIFIED SNOMED Code(s): 624845652 (2) Elevated procalcitonin Current Visit: Yes Status: Acute Code(s): R79.89 - OTHER SPECIFIED ABNORMAL FINDINGS OF BLOOD CHEMISTRY SNOMED Code(s): 726750759 Plan: 1patient with elevated white count in this patient presented to hospital with syncopal episode did have hypoxemia requiring supplemental oxygen, also with a cough with a question of possible pneumonia versus SBP as there is no evidence of any cellulitis at his pacemaker site no evidence of any joint swelling abdomen was soft medical examination 2-Patient with bilateral heel unstageable pressure ulcer right greater than left with a necrotic base but no surrounding redness no evidence of any cellulitis local care to continue with a dry protective dressing keep the area of the pressure 3-we're still waiting for the peritoneal fluid cell count differential and culture as apparently was sent yesterday but not available in the system RN to send it again, patient did have elevated CRP and procalcitonin and blood culture are currently pending patient to continue empiric cefepime as the white count seemed to be trending down while waiting for the cultures to finalize Time with Patient: Less than 30
[2022-09-20] MEDS: ACETAMINOPHEN TAB 325 MG TAB PO PRN (15:58)
--- NOTE | 2022-09-20 19:09 | P.PN ---
Subjective Patient is seen for follow-up for end-stage renal disease. Awake comfortable with no acute distress. UF about 400-200 ML with PD exchanges. Maintained on 2.5% solutions. O2 sats 95-96% on room air Awaiting pacemaker placement Has c/o abdominal pain on and off. PD fluid is clear. Objective - Vital Signs Vital signs: Vital Signs Temp 98 F 09/20/22 18:00 Pulse 70 09/20/22 18:00 Resp 17 09/20/22 18:00 BP 128/62 09/20/22 18:00 Pulse Ox 98 09/20/22 18:00 FiO2 Intake & Output 09/20/22 09/20/22 09/21/22 06:59 18:59 06:59 Intake Total 598 Balance 598 Weight 70.5 kg 70.5 kg Intake: Oral 598 Other: Voiding Method Diaper Diaper Incontinent Incontinent # Voids 1 # Bowel Movements 1 - Exam Patient is awake, comfortable Complaining of pain in the sacral area Examination of the heart S1 and S2 Examination of the lungs bilateral breath sounds are heard Abdomen is soft nontender Examination lower extremity shows no edema now [employer] exam grossly intact Both feet are wrapped - Labs CBC & Chem 7: 09/20/22 09:36 09/20/22 09:36 Labs: Abnormal Lab Results - Last 24 Hours (Table) 09/20/22 09/20/22 Range/Units 09:36 09:36 WBC 16.2 H (3.8-10.6) k/uL RBC 3.60 L (4.30-5.90) m/uL Hgb 10.7 L (13.0-17.5) gm/dL Hct 35.6 L (39.0-53.0) % MCHC 30.0 L (31.0-37.0) g/dL RDW 16.4 H (11.5-15.5) % Neutrophils # (Manual) 13.20 H (1.3-7.7) k/uL Lymphocytes # (Manual) 0.81 L (1.0-4.8) k/uL Monocytes # (Manual) 1.46 H (0-1.0) k/uL Metamyelocytes # (Man) 0.49 H (0) k/uL Myelocytes # (Manual) 0.32 H (0) k/uL Sodium 127 L (137-145) mmol/L Potassium 3.3 L (3.5-5.1) mmol/L Chloride 90 L (98-107) mmol/L BUN 68 H (9-20) mg/dL Creatinine 5.88 H (0.66-1.25) mg/dL Glucose 102 H (74-99) mg/dL Calcium 10.4 H (8.4-10.2) mg/dL Microbiology - Last 24 Hours (Table) 09/19/22 06:45 Urine Culture - Final Urine,Catheterized Assessment and Plan Assessment: 1. End-stage renal disease on peritoneal dialysis. 2. Mild volume overload, improved 3. CK D mineral bone disorder 4. Bilateral heel decubitus ulcers 5. History of fall with no syncope. Blood pressure has not been low. 6. Complete heart block with underlying left bundle branch block status post pacemaker 7. Abdominal pain, r/0 peritonitis Plan: Continue current PD exchanges Send PD fluid for cell count and cx Physical therapy. Continue with Aranesp and Rocaltrol along with DARRION inhibitors.
[2022-09-20 20:43] LABS: Appearance,BF Clear
[2022-09-21] MEDS: DIALYSIS (PERIT 2.5%) 2,500 ML 62.5 G/2,500 ML BAG INTRAPERIT SCH ×2 (06:07→18:08)
[2022-09-21] MEDS: PANTOPRAZOLE 40 MG TABLET PO SCH (06:07)
[2022-09-21] MEDS: MIDODRINE 5 MG TAB PO SCH ×3 (06:07→17:32)
[2022-09-21] MEDS: HEPARIN SODIUM,PORCINE/PF 5,000 UNIT/0.5 ML SYRINGE SQ SCH ×2 (10:16→16:10)
[2022-09-21] MEDS: allopurinoL 100 MG TAB PO SCH (10:16)
[2022-09-21] MEDS: CEFEPIME 1 GM in SODIUM CHLORIDE 0.9% 50 ML IVPB SCH (10:17)
[2022-09-21] MEDS: ANAGRELIDE 0.5 MG CAP PO SCH ×3 (10:17→22:19)
[2022-09-21] MEDS: CALCIUM CARBONATE 500 MG CHEWABLE PO SCH ×3 (10:17→21:58)
[2022-09-21] MEDS: LIDOCAINE 5% PATCH TOPICAL SCH (10:18)
[2022-09-21] MEDS: LACTULOSE 20 GM/30 ML CUP PO SCH (10:18)
[2022-09-21] MEDS: HYDROPHILIC CREAM 180 GM TUBE TOPICAL SCH (10:22)
[2022-09-21 10:31] LABS: Calcium 10.7 mg/dL (8.4-10.2); Potassium 4.1 mmol/L (3.5-5.1)
[2022-09-21] MEDS ORDERED: SODIUM CHLORIDE 0.9% 500 ML 500 ML IV ONE (10:32)
[2022-09-21] MEDS: lisinopriL 5 MG TAB PO SCH (10:32)
[2022-09-21] MEDS: hydrALAZINE HCL 50 MG TAB PO SCH ×2 (10:32→21:58)
[2022-09-21 11:06] LABS: Appearance,BF Clear
[2022-09-21 11:15] LABS: Anisocytosis Slight; Hypochromasia Slight; MCHC 30.5 g/dL (31.0-37.0); MCV 98.3 fL (80.0-100.0); Macrocytosis Slight; Mean Platelet Volume 12.2; Platelet Count 219 k/uL (150-450); RBC 3.66 m/uL (4.30-5.90); RDW 16.7 % (11.5-15.5)
[2022-09-21] MEDS: DIALYSIS (PERIT 1.5%) 2,500 ML 37.5 G/2,500 ML BAG INTRAPERIT SCH ×2 (12:05→23:56)
[2022-09-21] MEDS ORDERED: ANIDULAFUNGIN 200 MG in SODIUM CHLORIDE 0.9% 200 ML IVPB ONE (13:45)
--- NOTE | 2022-09-21 13:47 | P.PN ---
Subjective Progress Note Date: 09/21/22 86-year-old male with history of ESRD on peritoneal dialysis, chronic diastolic heart failure, hypertension, gout presents to the ED for altered mental status. Patient was recently admitted on 08/17 and discharged on 08/26 after a syncopal episode, noted to have a third degree heart block, required CPR for cardiac arrest, fitted for pacemaker with external generator and discharged with plans to follow up outpatient with Cardiology for permenant pacemaker placement. He was once again admitted for altered mentaion and hypoxia from 09/08-09/14, found to be volume overloaded. Patient's fluid status was managed with dialysis with Nephrology following and he was discharged saturating well on room air. He pres ented back to the hospital on 09/14 for syncopal episode, hypoxia and confusion with reported O2 saturation in the 60s at home. Nephrology is consulted to resume peritoneal dialysis. Cardiology was consulted with regard to plans for permanent pacemaker. 09/17 Patient seen and examined. No acute events overnight. and instrument designer at bedside. His instrument designer reports that patient usually gets hypoxic when ambulating. Family requesting wound care consult. States that patient appears shaky. 09/18 Patient seen and examined. No acute events overnight. Patient reports continued epigastric pain but unable to describe. He reports a bowel movement yesterday but nursing reports last bowel movement was 5/6. No more nausea and vomiting. 09/19 Patient seen and examined. Infectious disease consulted for worsening leukocytosis and cefdinir switched to cefepime. His mentation appears at baseline this morning. He denies any complaints besides feeling hot and cold. 09/20 Patient seen and examined. He has 2 bowel movements yesterday and 1 today. Patient reports improvement in his abdominal pain. He continues to have persistent leukocytosis of 16.2. CRP is elevated at 22.8. Procalcitonin elevated at 12.6. 09/21 Patient seen and examined. He has 2 bowel movements yesterday and 1 today. Lactulose will be discontinued. He continues to have persistent leukocytosis of 19. Peritoneal fluid analysis is not consistent with SBP, cultures pending. Blood cultures negative so far. Urine culture negative. General: nontoxic, no distress, appears at stated age Derm: warm, dry, bilateral heel wounds, has pacemaker with external generator. Head: atraumatic, normocephalic, symmetric Eyes: EOMI, no lid lag, anicteric sclera ENT: Nose and ears atraumatic Cardiovascular: Normal S1 S2, no murmur, no edema Lungs: clear to auscultation bilateral, no rhonchi, no rales, no wheeze, no accessory muscle use, supplemental oxygen Peritoneal dialysis catheter in place. Abdomen slightly distended. Ext: no gross muscle atrophy, muscle strength muscle strength 5 out of 5 in all 4 extremities, no contractures Psych: Alert, oriented, appropriate affect Acute metabolic encephalopathy with Leukocytosis and dysphagia Acute hypoxic respiratory failure secondary to volume overload Syncopal episode possibly related to hypoxia Troponin elevation ESRD on intermittent hemodialysis as well as peritoneal dialysis Hyponatremia Bilateral heel wounds present on admission Resolved: HypoK Chronic conditions: Hypertension, Chronic microcytic anemia, third-degree AV block status post pacemaker with external generator, Diastolic CHF Based on my assessment of this patient, this patient meets a moderate complexity level of care. Patient has an acute diagnosis of acute hypoxic respiratory failure secondary to volume overload in the setting of ESRD that poses a threat to life or bodily function. He is confused as a result of this. Nephrology has been consulted to resume dialysis. Cardiology consulted for workup of syncope, plans for PPM when infectious workup is complete. He will be placed on fall precautions. Telemetry monitoring as ordered. Patient is elevated troponins at baseline with regard to his previous admission. ACS has been ruled out. Patient has elevated WBC count of 22.9 to 18.9 to 16.9 to 16.2 to 19 today. He does not meet sepsis criteria. No current obvious source of infection. Cefdinir switching to Cefepime 1 g IV BID for infectious workup due to confusion on 09/18. UA shows trace LE. CRP is elevated at 22.8. Procalcitonin elevated at 12.6. Peritoneal fluid analysis is not consistent with SBP, cultures pending. Blood cultures negative so far. Urine culture negative. Infectious disease on board. Sodium of 128. To be managed with dialysis. His hemoglobin appears at baseline and he has no active signs of bleeding at this time. Attempt to preform home O2 eval when working with PT and OT. Gout - Allopurinol 100 mg PO QD. Hypertension - Lisinoprl 5 mg PO QD, Hydralazine 50 mg PO BID. Heparin SQ for DVT prophylaxis. FULL CODE. I have reviewed the following physician practice consultant notes: None. I have reviewed the results of the following tests: CBC shows leukocytosis of 19 and hemoglobin of 11. BMP shows sodium of 128, chloride of 90, BUN of 69, creatinine of 5.34, glucose of 112 with calcium of 10.7. Peritoneal fluid appears clean with 11 WBCs and greater than 2000 RBCs. Peritoneal culture received. Urine culture negative. Blood culture negative at 24 hours. I have ordered the following tests: CBC and BMP ordered for tomorrow morning. Peritoneal fluid analysis pending. Blood culture pending. I have discussed the care of this patient with the following independent historian: None. I have independently interpreted the following test below: None. I have discussed the management of this patient with the following physician: None. Objective - Vital Signs Vital signs: Vital Signs Temp 98.4 F 09/21/22 11:43 Pulse 71 09/21/22 11:43 Resp 17 09/21/22 11:43 BP 104/47 09/21/22 11:43 Pulse Ox 97 09/21/22 11:43 FiO2 Intake & Output 09/20/22 09/21/22 09/21/22 18:59 06:59 18:59 Intake Total 598 540 118 Balance 598 540 118 Weight 70.5 kg 69.5 kg Intake: Oral 598 540 118 Other: Voiding Method Diaper Diaper Incontinent Incontinent # Voids 1 # Bowel Movements 1 1 - Labs CBC & Chem 7: 09/21/22 08:48 09/21/22 08:48 Labs: Abnormal Lab Results - Last 24 Hours (Table) 09/20/22 09/21/22 09/21/22 Range/Units 09:36 08:48 08:48 WBC 19.0 H (3.8-10.6) k/uL RBC 3.66 L (4.30-5.90) m/uL Hgb 11.0 L (13.0-17.5) gm/dL Hct 36.0 L (39.0-53.0) % MCHC 30.5 L (31.0-37.0) g/dL RDW 16.7 H (11.5-15.5) % Neutrophils # (Manual) 13.20 H (1.3-7.7) k/uL Lymphocytes # (Manual) 0.81 L (1.0-4.8) k/uL Monocytes # (Manual) 1.46 H (0-1.0) k/uL Metamyelocytes # (Man) 0.49 H (0) k/uL Myelocytes # (Manual) 0.32 H (0) k/uL Sodium 128 L (137-145) mmol/L Chloride 90 L (98-107) mmol/L BUN 69 H (9-20) mg/dL Creatinine 5.34 H (0.66-1.25) mg/dL Glucose 112 H (74-99) mg/dL Calcium 10.7 H (8.4-10.2) mg/dL Microbiology - Last 24 Hours (Table) 09/19/22 08:51 Blood Culture - Preliminary Blood 09/18/22 12:33 Body Fluid Culture - Preliminary Peritoneal Fluid
--- NOTE | 2022-09-21 14:48 | P.PN ---
Subjective Progress Note Date: 09/21/22 This is Elvin Gibbs NP, I'm dictating on behalf of Dr. Rebolledo's H&P and A&P. Patient was interviewed and examined. This is a confused 86-year-old gentleman who was recently discharged. HPI was obtained mostly from the chart. Patient was in the hospital last month with complete heart block and underwent external pacemaker with plans for future permanent pacemaker implantation to be done by Dr. Best. He was most recently admitted with acute kidney injury and hypoxia with evidence of congestive heart failure. He was readmitted this admission initially stated patient had a syncopal episode but upon asking family was more increased confusion and concern for hypoxia. EKG on admission showed paced rhythm and externalized pacemaker is sutured in place to the right chest with transparent dressing in place. Labs show stable renal function with a BUN of 94 and creatinine of 6.3 to the patient does have peritoneal dialysis catheter has been doing this at home. NT proBNP is 24,600 with previous anterior BMP of 34,000. Troponins are minimally elevated but not consistent with acute coronary event. His vital signs within stable. Upon examination the patient answers minimal questions with either yes or no and at times doesn't answer questions at all. He denies any current complaints of chest discomfort or shortness of breath. Does not seem to be aware of why he is here or even that he is in the hospital. 09/16 patient is seen today in follow-up. He has external pacemaker and intact. Plan is for Dr. Best to evaluate and plan for permanent pacemaker implantation. 09/17 Patient seen today in follow up. He complains of upset stomach this morning. Answering questions more appropriatelly with intermitent confusion. No complaints of shortness of breath. Family is at the bedside and discussed plan for permanent pacemaker and next 1-2 days. Echocardiogram reveals EF of 50%, borderline increased left ventricular wall thickness, mild aortic sclerosis. No pericardial effusion. 09/18 Patient is seen today in follow up. No change in condition. He is continued on CAPD. Patient is afebrile. BP 141/58, HR 69, PO 96% RA. 09/19 Patient is seen today in follow-up. He is less alert, appears to be in some minimal respiratory distress. IV Lasix added 1 dose. Patient continues to have leukocytosis 16.9, hemoglobin is 10.5. Sodium 129, potassium 3, chloride 89, CO2 31, BUN 66 and creatinine 5.87. 09/20 Patient is seen today in follow-up. Patient is having lunch. No new concerns from the patient. He remains afebrile, heart rate in the 70s, blood pressure 127/65, pulse ox 97% on room air. Telemetry is paced rhythm. Patient continues to have leukocytosis 16.2. Dr. Monterroso is now on consult. 09/21 Patient is seen today in follow-up. Patient is quiet today and not responding to questions. He does open his eyes and smile when spoken to. Patient continues to demonstrate leukocytosis with a white blood cell count of 19. External pacemaker site is clean, dry, and intact. No signs or symptoms of infection noted. Telemetry demonstrates paced rhythm. Patient has been started on cefepime. GENERAL: Well-appearing, well-nourished and in no acute distress. NECK: Supple without JVD or thyromegaly. LUNGS: Breath sounds clear to auscultation bilaterally. Respiration equal and unlabored. No wheezes, rales or rhonchi. HEART: Regular rate and rhythm without murmurs, rubs or gallops. S1 and S2 heard. EXTREMITIES: Normal range of motion, no edema. No clubbing or cyanosis. Peripheral pulses intact and strong. VITALS: Temp 98.5, pulse 73, respirations 17, blood pressure 94/50, O2 saturation 96% on room air TELEMETRY: Paced rhythm LABS: White count 19.0, hemoglobin 11, platelets 219, sodium 128, potassium 4.1, chloride 90, BUN 69, creatinine 5.34, calcium 10.7 IMPRESSION: 1. Complete heart block, currently with external pacemaker 2. Chronic diastolic congestive heart failure 3. End-stage renal disease on peritoneal dialysis 4. Advanced dementia 5. Moderate to severe mitral regurgitation PLAN: Continue current cardiac medications Continued plan is for permanent pacemaker implantation pending leukocytosis improvement/resolution. Further recommendations based on the patient's clinical course. Objective - Vital Signs Vital signs: Vital Signs Temp 98.4 F 09/21/22 11:43 Pulse 71 09/21/22 11:43 Resp 17 09/21/22 11:43 BP 104/47 09/21/22 11:43 Pulse Ox 97 09/21/22 11:43 FiO2 Intake & Output 09/20/22 09/21/22 09/21/22 18:59 06:59 18:59 Intake Total 598 540 118 Balance 598 540 118 Weight 70.5 kg 69.5 kg Intake: Oral 598 540 118 Other: Voiding Method Diaper Diaper Incontinent Incontinent # Voids 1 # Bowel Movements 1 1 - Labs CBC & Chem 7: 09/21/22 08:48 09/21/22 08:48 Labs: Abnormal Lab Results - Last 24 Hours (Table) 09/21/22 09/21/22 Range/Units 08:48 08:48 WBC 19.0 H (3.8-10.6) k/uL RBC 3.66 L (4.30-5.90) m/uL Hgb 11.0 L (13.0-17.5) gm/dL Hct 36.0 L (39.0-53.0) % MCHC 30.5 L (31.0-37.0) g/dL RDW 16.7 H (11.5-15.5) % Sodium 128 L (137-145) mmol/L Chloride 90 L (98-107) mmol/L BUN 69 H (9-20) mg/dL Creatinine 5.34 H (0.66-1.25) mg/dL Glucose 112 H (74-99) mg/dL Calcium 10.7 H (8.4-10.2) mg/dL Microbiology - Last 24 Hours (Table) 09/19/22 08:51 Blood Culture - Preliminary Blood 09/18/22 12:33 Body Fluid Culture - Preliminary Peritoneal Fluid
--- NOTE | 2022-09-21 15:06 | P.PN ---
Subjective Progress Note Date: 09/21/22 Follow-up for peritoneal dialysis. As per the family still confused. Objective - Vital Signs Vital signs: Vital Signs Temp 98.4 F 09/21/22 11:43 Pulse 71 09/21/22 11:43 Resp 17 09/21/22 11:43 BP 104/47 09/21/22 11:43 Pulse Ox 97 09/21/22 11:43 FiO2 Intake & Output 09/20/22 09/21/22 09/21/22 18:59 06:59 18:59 Intake Total 598 540 118 Balance 598 540 118 Weight 70.5 kg 69.5 kg Intake: Oral 598 540 118 Other: Voiding Method Diaper Diaper Incontinent Incontinent # Voids 1 # Bowel Movements 1 1 - Exam No acute distress S1-S2 heard Abdomen soft No edema - Labs CBC & Chem 7: 09/21/22 08:48 09/21/22 08:48 Labs: Abnormal Lab Results - Last 24 Hours (Table) 09/21/22 09/21/22 Range/Units 08:48 08:48 WBC 19.0 H (3.8-10.6) k/uL RBC 3.66 L (4.30-5.90) m/uL Hgb 11.0 L (13.0-17.5) gm/dL Hct 36.0 L (39.0-53.0) % MCHC 30.5 L (31.0-37.0) g/dL RDW 16.7 H (11.5-15.5) % Sodium 128 L (137-145) mmol/L Chloride 90 L (98-107) mmol/L BUN 69 H (9-20) mg/dL Creatinine 5.34 H (0.66-1.25) mg/dL Glucose 112 H (74-99) mg/dL Calcium 10.7 H (8.4-10.2) mg/dL Microbiology - Last 24 Hours (Table) 09/19/22 08:51 Blood Culture - Preliminary Blood 09/18/22 12:33 Body Fluid Culture - Preliminary Peritoneal Fluid Assessment and Plan Assessment: #1 ESRD on PD #2 hypertension with ESRD. Episodes of hypotension. #3 anemia with ESRD #4 metabolic bone disease #5 complete heart block status post pacemaker Plan: #1 continue current exchanges with peritoneal dialysis #2 no peritonitis on abdominal fluid
--- NOTE | 2022-09-21 22:06 | P.PN ---
Subjective Progress Note Date: 09/21/22 Principal diagnosis: Leukocytosis Patient is 86-year-old male with multiple comorbidities including heart failure heart block requiring transvenous pacemaker placement also with a history of end-stage renal disease on peritoneal dialysis presenting to the hospital 09/14/2022" apparently the patient had a syncopal episode, patient also noticed to have elevated white count and elevated inflammatory markers On today's evaluation and that is 09/21/2022, the patient remains to be afebrile, the patient is breathing comfortably on room air, the patient denies having any chest pain did have some cough but no sputum production, no nausea no vomiting no abdominal and no diarrhea has been reported Objective - Vital Signs Vital signs: Vital Signs Temp 98.4 F 09/21/22 11:43 Pulse 71 09/21/22 11:43 Resp 17 09/21/22 11:43 BP 104/47 09/21/22 11:43 Pulse Ox 97 09/21/22 11:43 FiO2 Intake & Output 09/20/22 09/21/22 09/21/22 18:59 06:59 18:59 Intake Total 598 540 118 Balance 598 540 118 Weight 70.5 kg 69.5 kg Intake: Oral 598 540 118 Other: Voiding Method Diaper Diaper Incontinent Incontinent # Voids 1 # Bowel Movements 1 1 - Exam GENERAL DESCRIPTION: An elderly male lying in bed in no distress RESPIRATORY SYSTEM: Unlabored breathing , decreased breath sounds at bases HEART: S1 S2 regular rate and rhythm , ABDOMEN: Soft , no tenderness EXTREMITIES: Bilateral heel wounds are currently dressed - Labs CBC & Chem 7: 09/21/22 08:48 09/21/22 08:48 Labs: Abnormal Lab Results - Last 24 Hours (Table) 09/20/22 09/21/22 09/21/22 Range/Units 09:36 08:48 08:48 WBC 19.0 H (3.8-10.6) k/uL RBC 3.66 L (4.30-5.90) m/uL Hgb 11.0 L (13.0-17.5) gm/dL Hct 36.0 L (39.0-53.0) % MCHC 30.5 L (31.0-37.0) g/dL RDW 16.7 H (11.5-15.5) % Neutrophils # (Manual) 13.20 H (1.3-7.7) k/uL Lymphocytes # (Manual) 0.81 L (1.0-4.8) k/uL Monocytes # (Manual) 1.46 H (0-1.0) k/uL Metamyelocytes # (Man) 0.49 H (0) k/uL Myelocytes # (Manual) 0.32 H (0) k/uL Sodium 128 L (137-145) mmol/L Chloride 90 L (98-107) mmol/L BUN 69 H (9-20) mg/dL Creatinine 5.34 H (0.66-1.25) mg/dL Glucose 112 H (74-99) mg/dL Calcium 10.7 H (8.4-10.2) mg/dL Microbiology - Last 24 Hours (Table) 09/19/22 08:51 Blood Culture - Preliminary Blood 09/18/22 12:33 Body Fluid Culture - Preliminary Peritoneal Fluid Assessment and Plan (1) Leukocytosis Current Visit: Yes Status: Acute Code(s): D72.829 - ELEVATED WHITE BLOOD CELL COUNT, UNSPECIFIED SNOMED Code(s): 803425038 (2) Elevated procalcitonin Current Visit: Yes Status: Acute Code(s): R79.89 - OTHER SPECIFIED ABNORMAL FINDINGS OF BLOOD CHEMISTRY SNOMED Code(s): 105124675 Plan: 1patient with elevated white count in this patient presented to hospital with syncopal episode did have hypoxemia requiring supplemental oxygen, also with a cough with a question of possible pneumonia versus SBP as there is no evidence of any cellulitis at his pacemaker site no evidence of any joint swelling abdomen was soft medical examination 2-Patient with bilateral heel unstageable pressure ulcer right greater than left with a necrotic base but no surrounding redness no evidence of any cellulitis local care to continue with a dry protective dressing keep the area of the pressure 3-patient noticed to have slight worsening of his white count up to 19,000 today cultures are so far negative patient to continue cefepime we will add Eraxsis and monitor clinical course closely Time with Patient: Less than 30
[2022-09-22 00:22] LABS: Glucose,Whole Blood 112 mg/dL (70-110)
[2022-09-22] MEDS ORDERED: SODIUM CHLORIDE 0.9% 500 ML 500 ML IV ONE ×2 (00:23→03:18)
[2022-09-22] MEDS: HEPARIN SODIUM,PORCINE/PF 5,000 UNIT/0.5 ML SYRINGE SQ SCH ×3 (00:56→16:29)
[2022-09-22] MEDS: DIALYSIS (PERIT 1.5%) 2,500 ML 37.5 G/2,500 ML BAG INTRAPERIT SCH ×2 (01:15→12:41)
[2022-09-22] MEDS ORDERED: MIDODRINE 5 MG TAB PO ONE (01:49)
[2022-09-22] MEDS ORDERED: SODIUM CHLORIDE 0.9% 1,000 ML IV ONE (03:19)
[2022-09-22 03:53] LABS: Glucose,Whole Blood 124 mg/dL (70-110)
[2022-09-22 06:33] LABS: Anisocytosis Slight; HGB 10.3 gm/dL (13.0-17.5); Hypochromasia Slight; MCH 29.7 pg (25.0-35.0); MCHC 30.3 g/dL (31.0-37.0); Macrocytosis Slight; Mean Platelet Volume 11.6; Platelet Count 183 k/uL (150-450); RBC 3.47 m/uL (4.30-5.90); RDW 16.6 % (11.5-15.5); WBC 19.9 k/uL (3.8-10.6)
[2022-09-22] MEDS: DIALYSIS (PERIT 2.5%) 2,500 ML 62.5 G/2,500 ML BAG INTRAPERIT SCH ×2 (06:36→18:06)
[2022-09-22 06:41] LABS: Calcium 9.8 mg/dL (8.4-10.2); Potassium 3.5 mmol/L (3.5-5.1)
[2022-09-22 07:34] LABS: C Reactive Protein 18.2 mg/dL (<1.0)
[2022-09-22 08:04] LABS: Band Neutrophils % 1 %; Monocytes # (M) 1.59 k/uL (0-1.0); Neutrophils % (M) 85 %; Nucleated Red Blood Cells 0 /100 WBC (0-0); Total Cells Counted 100
[2022-09-22 08:05] LABS: Poikilocytosis (M) Present
--- NOTE | 2022-09-22 08:39 | P.CNPUL ---
History of Present Illness Consult date: 09/22/22 Chief complaint: hypotension History of present illness: I was asked to transfer this patient yesterday to the ICU because of hypotension. His systolic blood pressure was as low as the 70s and for that reason the patient got transferred to the ICU. He is an 86-year-old male patient who was recently discharged from the hospital. He was in a hospital last month with a complete heart block and the patient received a temporary external pacemaker. He is known having complete heart block along with chronic diastolic heart failure and end-stage renal disease on peritoneal dialysis. He also has advanced dementia. The patient was hospitalized on 09/15/2022 due to concerns of confusion and hypoxemia. He was being managed on the medical floor. He was seen by various consultants including cardiology and nephrology. Initially was thought to be in some mild fluid overload and the patient was given CAPD exchanges with 4.25% solution alternating with 2.5% solution to help increase his ultrafiltration. He was also found to be in a manic and he was given Aranesp . Infectious disease was also involved in his care as the patient had an elevated white count. He remained afebrile. His breathing is comfortable and patient is currently on room air oxygen. No nausea or vomiting or abdominal pain. No diarrhea. After arriving to the ICU, the patient was given fluid boluses. The patient was given 1.5 L in addition to midodrine and h is current blood pressure is 113/90. His cardiac rhythm is paced. Pulse ox is 94% on room air oxygen. Blood work from today is showing a white cell count of 19 with a hemoglobin of 10.3 and a platelet count of 183. Sodium is at 128, potassium is at 3.5, BUN is at 65 with a creatinine of 5.3. Peritoneal fluid was checked and it was negative for any infection. The body fluid from the peritoneal is also negative for culture. Blood culture is negative thus far. The patient is currently on IV cefepime per IDs recommendation. He is also taking Eraxis. Chest x-ray was done on 09/20/2022 shows some cardiomegaly without any acute abnormalities. His most recent echocardiogram from 08/19/2022 showed a left posterior ejection fraction 45-50% along with moderate to severe mitral regurgitation. His swallow evaluation done on 09/19/2022 was showing some mild delayed swallow with residual no penetration or aspiration. v Review of Systems CONSTITUTIONAL: No fever, no malaise, no fatigue. HEENT: No recent visual problems or hearing problems. Denied any sore throat. CARDIOVASCULAR: No chest pain, orthopnea, PND, no palpitations, no syncope. PULMONARY: No shortness of breath, no cough, no hemoptysis. GASTROINTESTINAL: No diarrhea, no nausea, no vomiting, no abdominal pain. NEUROLOGICAL: No headaches, no weakness, no numbness. HEMATOLOGICAL: Denies any bleeding or petechiae. GENITOURINARY: Denies any burning micturition, frequency, or urgency. MUSCULOSKELETAL/RHEUMATOLOGICAL: Denies any joint pain, swelling, or any muscle pain. ENDOCRINE: Denies any polyuria or polydipsia. The rest of the 14-point review of systems is negative. Past Medical History Past Medical History: Heart Failure, Dialysis, Hypertension, Prostate Disorder, Renal Disease Additional Past Medical History / Comment(s): CURRENTLY DOING HEMODIALYSIS @ [facility] ([facility]). Thrombocytemia/elevated platelets. CKD stage IV. Anemia. BPH. 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 R hand index finger injury/partial amp. Colonoscopy. peritoneal dialysis Past Anesthesia/Blood Transfusion Reactions: No Reported Reaction Type of Cardiac Device: Permanent Pacemaker Device Placement Date:: 09/09/22 Past Psychological History: No Psychological Hx Reported Smoking Status: Never smoker Past Alcohol Use History: Rare Past Drug Use History: None Reported - Past Family History Father Family Medical History: Cancer, Hypertension, Renal Disease Additional Family Medical History / Comment(s): Kidney Cancer Mother Family Medical History: No Reported History Additional Family Medical History / Comment(s): Mother was healthy Medications and Allergies Home Medications Medication Instructions Recorded Confirmed Type Tamsulosin HCl [Flomax] 0.4 mg PO BID 05/24/14 09/14/22 History Anagrelide HCl [Agrylin] 1 mg PO TID 11/08/20 09/14/22 History Vit B Complx C/Folic Acid/Zinc 1 tab PO DAILY 03/19/21 09/14/22 History [Renaplex Tablet] Acetaminophen Tab [Tylenol] 650 mg PO Q4H PRN 08/17/22 09/14/22 History Calcium Carbonate [Tums] 1,000 mg PO TID 08/17/22 09/14/22 History Pantoprazole Sodium [Protonix] 40 mg PO DAILY 08/17/22 09/14/22 History allopurinoL [Zyloprim] 100 mg PO DAILY 08/17/22 09/14/22 History calcitrioL [Calcitriol] 0.25 mcg PO MOTUWETHFR 08/17/22 09/14/22 History hydrALAZINE HCL [Apresoline] 50 mg PO BID 08/17/22 09/14/22 History Darbepoetin Abraham [Aranesp] 40 mcg SQ Q7D #30 each 08/27/22 09/14/22 Rx lisinopriL [Zestril] 5 mg PO DAILY #90 tab 08/27/22 09/14/22 Rx Lidocaine 5% Patch [Lidoderm 5% 1 patch TRANSDERM DAILY 09/14/22 09/14/22 History Patch] Allergies Allergy/AdvReac Type Severity Reaction Status Date / Time No Known Allergies Allergy Verified 09/14/22 20:41 Physical Exam Vitals: Vital Signs Temp Pulse Pulse Resp BP BP BP 09/22/22 08:15 70 19 113/90 09/22/22 08:00 70 13 121/71 09/22/22 07:45 75 10 L 121/71 09/22/22 07:30 96 18 09/22/22 07:15 83 36 H 114/51 09/22/22 07:00 70 20 110/46 09/22/22 06:45 69 21 110/46 09/22/22 06:30 69 28 H 110/51 09/22/22 06:15 69 21 110/51 09/22/22 06:00 97 F L 69 17 110/46 09/22/22 05:45 69 17 112/50 09/22/22 05:30 68 8 L 106/44 09/22/22 05:15 67 24 106/44 09/22/22 05:00 19 118/48 09/22/22 04:45 69 40 H 88/70 09/22/22 04:30 73 27 H 108/48 09/22/22 04:20 70 18 108/48 09/22/22 04:10 75 15 118/47 09/22/22 04:00 97.3 F L 70 13 105/41 09/22/22 03:51 75 12 09/22/22 00:00 97.7 F 69 22 105/47 09/21/22 20:00 69 09/21/22 16:00 98.7 F 72 18 118/60 09/21/22 14:00 72 18 09/21/22 11:43 98.4 F 71 17 104/47 Pulse Ox 09/22/22 08:15 93 L 09/22/22 08:00 96 09/22/22 07:45 95 09/22/22 07:30 97 09/22/22 07:15 98 09/22/22 07:00 97 09/22/22 06:45 97 09/22/22 06:30 98 09/22/22 06:15 93 L 09/22/22 06:00 97 09/22/22 05:45 95 09/22/22 05:30 92 L 09/22/22 05:15 87 L 09/22/22 05:00 90 L 09/22/22 04:45 91 L 09/22/22 04:30 93 L 09/22/22 04:20 93 L 09/22/22 04:10 94 L 09/22/22 04:00 92 L 09/22/22 03:51 09/22/22 00:00 95 09/21/22 20:00 09/21/22 16:00 95 09/21/22 14:00 09/21/22 11:43 97 Intake and Output 09/21/22 09/22/22 09/22/22 22:59 06:59 14:59 Intake Total 630 2085 150 Output Total 0 Balance 630 2085 150 Intake: IV 585 150 0.9 IVF 75 150 Invasive Line 3 510 Intake, IV Titration 150 1500 Amount Anidulafungin 100 mg In 100 Sodium Chloride 0.9% 100 ml @ 84 mls/hr IVPB DAILY @1400 [facility] Rx#:[id number] Cefepime 1 gm In Sodium 50 Chloride 0.9% 50 ml @ 12. 5 mls/hr IVPB Q24HR [facility] Rx#:[id number] Sodium Chloride 0.9% 1, 1000 000 ml @ 999 mls/hr IV . Q1H1M [facility] Rx#:[id number] Sodium Chloride 0.9% 500 500 ml 500 ml @ 999 mls/hr IV .Q31M [facility] Rx#:[id number] Oral 480 Output: Urine 0 Other: # Bowel Movements 3 Weight 69 kg Gen: This is an 86-year-old male patient resting in bed in no acute distress. VS: reviewed Head exam was generally normal. There was no scleral icterus or corneal arcus. Mucous membranes were moist. HEENT: Head is atraumatic, normocephalic. Pupils equal, round. Sclerae is anicteric. NECK: Supple. No JVD. LUNGS: Crackles. No intercostal retractions. HEART: Regular rate and rhythm. Systolic murmur. Patient's current rhythm is paced and the patient has a temporary pacemaker over the right anterior chest area. ABDOMENAbdominal exam revealed normal bowel sounds. The abdomen was soft, non- tender, and without masses, organomegaly, or appreciable enlargement of the abdominal aorta. He had the patient also has a peritoneal dialysis catheter in his abdomen and the exit site is dry clean and intact. EXTREMITIES: No pedal edema. No calf tenderness. NEUROLOGICAL: Patient is awake, oriented to person. The patient is underlying dementia with impairment of the cognitive functions. Results - Laboratory Findings CBC and BMP: 09/22/22 06:11 09/22/22 06:11 PT/INR, D-dimer PT 10.3 sec (9.0-12.0) 09/14/22 19:00 INR 1.0 (<1.2) 09/14/22 19:00 Abnormal lab findings: Abnormal Labs 09/14/22 09/14/22 09/14/22 19:00 19:00 19:00 WBC 12.4 H RBC 3.59 L Hgb 10.9 L Hct 35.3 L MCV MCHC RDW 16.2 H Neutrophils # (Manual) 9.92 H Lymphocytes # (Manual) Monocytes # (Manual) Eosinophils # (Manual) Metamyelocytes # (Man) Myelocytes # (Manual) Sodium 126 L Potassium Chloride 87 L Carbon Dioxide BUN 94 H Creatinine 6.32 H Glucose 103 H POC Glucose (mg/dL) Calcium Troponin I 0.066 H* C-Reactive Protein Total Protein 4.8 L Albumin 2.5 L Procalcitonin Urine Protein Urine Blood Ur Leukocyte Esterase Urine RBC Urine WBC Urine Bacteria 09/14/22 09/14/22 09/15/22 21:56 23:41 02:30 WBC RBC Hgb Hct MCV MCHC RDW Neutrophils # (Manual) Lymphocytes # (Manual) Monocytes # (Manual) Eosinophils # (Manual) Metamyelocytes # (Man) Myelocytes # (Manual) Sodium Potassium Chloride Carbon Dioxide BUN Creatinine Glucose POC Glucose (mg/dL) Calcium Troponin I 0.067 H* 0.070 H* C-Reactive Protein Total Protein Albumin Procalcitonin Urine Protein 1+ H Urine Blood Trace H Ur Leukocyte Esterase Small H Urine RBC 11 H Urine WBC 6 H Urine Bacteria Rare H 09/15/22 09/15/22 09/17/22 02:30 02:30 11:03 WBC 11.0 H 22.9 H RBC 3.30 L 3.57 L Hgb 10.0 L 10.6 L Hct 33.1 L 35.6 L MCV 100.2 H MCHC 30.3 L 29.8 L RDW 16.2 H 16.3 H Neutrophils # (Manual) Lymphocytes # (Manual) Monocytes # (Manual) 1.32 H Eosinophils # (Manual) 0.77 H Metamyelocytes # (Man) 0.22 H Myelocytes # (Manual) Sodium 128 L Potassium Chloride 88 L Carbon Dioxide BUN 92 H Creatinine 7.14 H* Glucose POC Glucose (mg/dL) Calcium Troponin I C-Reactive Protein Total Protein Albumin Procalcitonin Urine Protein Urine Blood Ur Leukocyte Esterase Urine RBC Urine WBC Urine Bacteria 09/17/22 09/17/22 09/18/22 11:03 15:02 07:51 WBC 18.9 H RBC 3.60 L Hgb 10.7 L Hct 34.6 L MCV MCHC RDW 16.7 H Neutrophils # (Manual) Lymphocytes # (Manual) Monocytes # (Manual) Eosinophils # (Manual) Metamyelocytes # (Man) Myelocytes # (Manual) Sodium 125 L Potassium Chloride 86 L Carbon Dioxide BUN 77 H Creatinine 6.50 H Glucose 135 H POC Glucose (mg/dL) 179 H Calcium Troponin I C-Reactive Protein Total Protein 4.8 L Albumin 2.5 L Procalcitonin Urine Protein Urine Blood Ur Leukocyte Esterase Urine RBC Urine WBC Urine Bacteria 09/18/22 09/18/22 09/19/22 07:51 16:28 08:45 WBC 16.9 H RBC 3.49 L Hgb 10.5 L Hct 34.4 L MCV MCHC 30.6 L RDW 16.3 H Neutrophils # (Manual) Lymphocytes # (Manual) Monocytes # (Manual) Eosinophils # (Manual) Metamyelocytes # (Man) Myelocytes # (Manual) Sodium 128 L Potassium 3.3 L Chloride 87 L Carbon Dioxide BUN 69 H Creatinine 6.31 H Glucose 131 H POC Glucose (mg/dL) 124 H Calcium Troponin I C-Reactive Protein Total Protein Albumin Procalcitonin Urine Protein Urine Blood Ur Leukocyte Esterase Urine RBC Urine WBC Urine Bacteria 09/19/22 09/19/22 09/20/22 08:45 08:45 09:36 WBC 16.2 H RBC 3.60 L Hgb 10.7 L Hct 35.6 L MCV MCHC 30.0 L RDW 16.4 H Neutrophils # (Manual) 13.20 H Lymphocytes # (Manual) 0.81 L Monocytes # (Manual) 1.46 H Eosinophils # (Manual) Metamyelocytes # (Man) 0.49 H Myelocytes # (Manual) 0.32 H Sodium 129 L Potassium 3.0 L Chloride 89 L Carbon Dioxide 31 H BUN 66 H Creatinine 5.87 H Glucose 111 H POC Glucose (mg/dL) Calcium 10.4 H Troponin I C-Reactive Protein 22.8 H Total Protein Albumin Procalcitonin 12.60 H Urine Protein Urine Blood Ur Leukocyte Esterase Urine RBC Urine WBC Urine Bacteria 09/20/22 09/21/22 09/21/22 09:36 08:48 08:48 WBC 19.0 H RBC 3.66 L Hgb 11.0 L Hct 36.0 L MCV MCHC 30.5 L RDW 16.7 H Neutrophils # (Manual) Lymphocytes # (Manual) Monocytes # (Manual) Eosinophils # (Manual) Metamyelocytes # (Man) Myelocytes # (Manual) Sodium 127 L 128 L Potassium 3.3 L Chloride 90 L 90 L Carbon Dioxide BUN 68 H 69 H Creatinine 5.88 H 5.34 H Glucose 102 H 112 H POC Glucose (mg/dL) Calcium 10.4 H 10.7 H Troponin I C-Reactive Protein Total Protein Albumin Procalcitonin Urine Protein Urine Blood Ur Leukocyte Esterase Urine RBC Urine WBC Urine Bacteria 09/22/22 09/22/22 09/22/22 00:20 03:50 06:11 WBC 19.9 H RBC 3.47 L Hgb 10.3 L Hct 34.0 L MCV MCHC 30.3 L RDW 16.6 H Neutrophils # (Manual) 17.10 H Lymphocytes # (Manual) Monocytes # (Manual) 1.59 H Eosinophils # (Manual) Metamyelocytes # (Man) Myelocytes # (Manual) Sodium Potassium Chloride Carbon Dioxide BUN Creatinine Glucose POC Glucose (mg/dL) 112 H 124 H Calcium Troponin I C-Reactive Protein Total Protein Albumin Procalcitonin Urine Protein Urine Blood Ur Leukocyte Esterase Urine RBC Urine WBC Urine Bacteria 09/22/22 06:11 WBC RBC Hgb Hct MCV MCHC RDW Neutrophils # (Manual) Lymphocytes # (Manual) Monocytes # (Manual) Eosinophils # (Manual) Metamyelocytes # (Man) Myelocytes # (Manual) Sodium 128 L Potassium Chloride 94 L Carbon Dioxide BUN 65 H Creatinine 5.30 H Glucose POC Glucose (mg/dL) Calcium Troponin I C-Reactive Protein 18.2 H Total Protein Albumin Procalcitonin Urine Protein Urine Blood Ur Leukocyte Esterase Urine RBC Urine WBC Urine Bacteria - Diagnostic Findings Chest x-ray: image reviewed Assessment and Plan Plan: Hypotension, probably related to fluid balance. Underlying infection is felt to be less likely. The patient is currently normotensive and the patient is not receiving any pressors. History of complete heart block and the patient has a external pacemaker in place Diastolic heart failure Moderate severe mitral regurgitation End-stage renal disease currently on peritoneal dialysis. Peritoneal fluid is clean and there is no evidence of any infection Anemia of chronic disease Dementia with impairment of cognitive functions Chronic leukocytosis Chronic hyponatremia DTI involving the heels bilaterally, stage II one on his coccyx Plan Patient is currently normotensive Midodrine was added Patient is doing 4 exchanges a day with 2.5% alternating with 1.5% Continue IV cefepime although there is no convincing evidence of any underlying infection Monitor white count Monitor the cultures Ski Guide on the case General Car Yard Supervisor on the case Swallow evaluation was done and the patient has no evidence of aspiration Chest x-rays. The patient is currently on room and oxygen Overall functional status is poor and the prognosis poor based on age and comorbidities.
[2022-09-22] MEDS: CALCIUM CARBONATE 500 MG CHEWABLE PO SCH ×3 (09:45→22:18)
[2022-09-22] MEDS: allopurinoL 100 MG TAB PO SCH (09:45)
[2022-09-22] MEDS: PANTOPRAZOLE 40 MG TABLET PO SCH (09:45)
[2022-09-22] MEDS: MIDODRINE 5 MG TAB PO SCH ×3 (09:45→17:31)
[2022-09-22] MEDS: LIDOCAINE 5% PATCH TOPICAL SCH ×2 (09:47→12:08)
[2022-09-22] MEDS: ANAGRELIDE 0.5 MG CAP PO SCH ×3 (09:47→22:15)
[2022-09-22] MEDS: HYDROPHILIC CREAM 180 GM TUBE TOPICAL SCH (09:47)
[2022-09-22] MEDS: CEFEPIME 1 GM in SODIUM CHLORIDE 0.9% 50 ML IVPB SCH (12:50)
[2022-09-22] MEDS: NOREPINEPHRINE 4 MG in SODIUM CHLORIDE 0.9% 250 ML IV SCH (12:56)
--- NOTE | 2022-09-22 14:23 | P.PN ---
Subjective Progress Note Date: 09/22/22 This is Elvin Gibbs NP, I'm dictating on behalf of Dr. Rebolledo's H&P and A&P. Patient was interviewed and examined. This is a confused 86-year-old gentleman who was recently discharged. HPI was obtained mostly from the chart. Patient was in the hospital last month with complete heart block and underwent external pacemaker with plans for future permanent pacemaker implantation to be done by Dr. Best. He was most recently admitted with acute kidney injury and hypoxia with evidence of congestive heart failure. He was readmitted this admission initially stated patient had a syncopal episode but upon asking family was more increased confusion and concern for hypoxia. EKG on admission showed paced rhythm and externalized pacemaker is sutured in place to the right chest with transparent dressing in place. Labs show stable renal function with a BUN of 94 and creatinine of 6.3 to the patient does have peritoneal dialysis catheter has been doing this at home. NT proBNP is 24,600 with previous anterior BMP of 34,000. Troponins are minimally elevated but not consistent with acute coronary event. His vital signs within stable. Upon examination the patient answers minimal questions with either yes or no and at times doesn't answer questions at all. He denies any current complaints of chest discomfort or shortness of breath. Does not seem to be aware of why he is here or even that he is in the hospital. 09/16 patient is seen today in follow-up. He has external pacemaker and intact. Plan is for Dr. Best to evaluate and plan for permanent pacemaker implantation. 09/17 Patient seen today in follow up. He complains of upset stomach this morning. Answering questions more appropriatelly with intermitent confusion. No complaints of shortness of breath. Family is at the bedside and discussed plan for permanent pacemaker and next 1-2 days. Echocardiogram reveals EF of 50%, borderline increased left ventricular wall thickness, mild aortic sclerosis. No pericardial effusion. 09/18 Patient is seen today in follow up. No change in condition. He is continued on CAPD. Patient is afebrile. BP 141/58, HR 69, PO 96% RA. 09/19 Patient is seen today in follow-up. He is less alert, appears to be in some minimal respiratory distress. IV Lasix added 1 dose. Patient continues to have leukocytosis 16.9, hemoglobin is 10.5. Sodium 129, potassium 3, chloride 89, CO2 31, BUN 66 and creatinine 5.87. 09/20 Patient is seen today in follow-up. Patient is having lunch. No new concerns from the patient. He remains afebrile, heart rate in the 70s, blood pressure 127/65, pulse ox 97% on room air. Telemetry is paced rhythm. Patient continues to have leukocytosis 16.2. Dr. Monterroso is now on consult. 09/21 Patient is seen today in follow-up. Patient is quiet today and not responding to questions. He does open his eyes and smile when spoken to. Patient continues to demonstrate leukocytosis with a white blood cell count of 19. External pacemaker site is clean, dry, and intact. No signs or symptoms of infection noted. Telemetry demonstrates paced rhythm. Patient has been started on cefepime. 09/22 Patient is seen today in follow-up. Patient continues to not respond to questions. Patient was transferred to the ICU overnight for significant hypotension. He was given a liter and a half of IV fluids and his midodrine was increased. His blood pressure is slightly elevated today. He discussion with the patient's nurse revealed that the patient's elevated white blood cell count may be elevated chronically, as all of his cultures have come back negative for any infection. Hematology/oncology has been consulted. Patient's nurse had no significant concerns for him at this time. GENERAL: Well-appearing, well-nourished and in no acute distress. NECK: Supple without JVD or thyromegaly. LUNGS: Breath sounds clear to auscultation bilaterally. Respiration equal and unlabored. No wheezes, rales. HEART: Regular rate and rhythm without murmurs, rubs or gallops. S1 and S2 heard. EXTREMITIES: Normal range of motion, no edema. No clubbing or cyanosis. Pe ripheral pulses intact and strong. VITALS: Temp 97.8, pulse 69, respirations 15, blood pressure 143/57, O2 saturation 93% on room air TELEMETRY: Paced rhythm LABS: White count 19.9, hemoglobin 10.3, platelets 183, sodium 128, potassium 3.5, chloride 94, BUN 65, creatinine 5.3, lactic acid 1.2, calcium 9.8, CRP 18.2 IMPRESSION: 1. Complete heart block, currently with external pacemaker 2. Chronic diastolic congestive heart failure 3. End-stage renal disease on peritoneal dialysis 4. Advanced dementia 5. Moderate to severe mitral regurgitation PLAN: Continue current cardiac medications. If hematology can confirm the patient's white blood cell count is elevated chronically, we will proceed with implantation of a permanent pacemaker. Further recommendations based on patient's clinical course. Objective - Vital Signs Vital signs: Vital Signs Temp 97.8 F 09/22/22 12:20 Pulse 69 09/22/22 13:00 Resp 25 H 09/22/22 13:00 BP 133/56 09/22/22 13:00 Pulse Ox 92 L 09/22/22 13:00 FiO2 Intake & Output 09/21/22 09/22/22 09/22/22 18:59 06:59 18:59 Intake Total 748 2085 200 Output Total 0 Balance 748 2085 200 Weight 69 kg Intake: IV 585 200 0.9 IVF 75 150 Cefepime 1 gm In Sodium 50 Chloride 0.9% 50 ml @ 12. 5 mls/hr IVPB Q24HR [facility] Rx#:[id number] Invasive Line 3 510 Intake, IV Titration 150 1500 Amount Anidulafungin 100 mg In 100 Sodium Chloride 0.9% 100 ml @ 84 mls/hr IVPB DAILY @1400 [facility] Rx#:[id number] Cefepime 1 gm In Sodium 50 Chloride 0.9% 50 ml @ 12. 5 mls/hr IVPB Q24HR [facility] Rx#:[id number] Sodium Chloride 0.9% 1, 1000 000 ml @ 999 mls/hr IV . Q1H1M [facility] Rx#:[id number] Sodium Chloride 0.9% 500 500 ml 500 ml @ 999 mls/hr IV .Q31M [facility] Rx#:[id number] Oral 598 Output: Urine 0 Other: Voiding Method Diaper CAPD Incontinent # Bowel Movements 3 - Labs CBC & Chem 7: 09/22/22 06:11 09/22/22 06:11 Labs: Abnormal Lab Results - Last 24 Hours (Table) 09/22/22 09/22/22 09/22/22 Range/Units 00:20 03:50 06:11 WBC 19.9 H (3.8-10.6) k/uL RBC 3.47 L (4.30-5.90) m/uL Hgb 10.3 L (13.0-17.5) gm/dL Hct 34.0 L (39.0-53.0) % MCHC 30.3 L (31.0-37.0) g/dL RDW 16.6 H (11.5-15.5) % Neutrophils # (Manual) 17.10 H (1.3-7.7) k/uL Monocytes # (Manual) 1.59 H (0-1.0) k/uL Sodium (137-145) mmol/L Chloride (98-107) mmol/L BUN (9-20) mg/dL Creatinine (0.66-1.25) mg/dL POC Glucose (mg/dL) 112 H 124 H (70-110) mg/dL C-Reactive Protein (<1.0) mg/dL 09/22/22 Range/Units 06:11 WBC (3.8-10.6) k/uL RBC (4.30-5.90) m/uL Hgb (13.0-17.5) gm/dL Hct (39.0-53.0) % MCHC (31.0-37.0) g/dL RDW (11.5-15.5) % Neutrophils # (Manual) (1.3-7.7) k/uL Monocytes # (Manual) (0-1.0) k/uL Sodium 128 L (137-145) mmol/L Chloride 94 L (98-107) mmol/L BUN 65 H (9-20) mg/dL Creatinine 5.30 H (0.66-1.25) mg/dL POC Glucose (mg/dL) (70-110) mg/dL C-Reactive Protein 18.2 H (<1.0) mg/dL Microbiology - Last 24 Hours (Table) 09/19/22 08:51 Blood Culture - Preliminary Blood 09/18/22 12:33 Gram Stain - Preliminary Peritoneal Fluid Body Fluid Culture - Preliminary 09/21/22 00:22 Gram Stain - Preliminary Peritoneal Fluid Body Fluid Culture - Preliminary
[2022-09-22] MEDS ORDERED: VANCOMYCIN IV PER PHARMACY 1 EACH MISC MISCELLANE PRN (14:51)
--- NOTE | 2022-09-22 15:07 | P.PN ---
Subjective Progress Note Date: 09/22/22 86-year-old male with history of ESRD on peritoneal dialysis, chronic diastolic heart failure, hypertension, gout presents to the ED for altered mental status. Patient was recently admitted on 08/17 and discharged on 08/26 after a syncopal episode, noted to have a third degree heart block, required CPR for cardiac arrest, fitted for pacemaker with external generator and discharged with plans to follow up outpatient with Cardiology for permenant pacemaker placement. He was once again admitted for altered mentaion and hypoxia from 09/08-09/14, found to be volume overloaded. Patient's fluid status was managed with dialysis with Nephrology following and he was discharged saturating well on room air. He pres ented back to the hospital on 09/14 for syncopal episode, hypoxia and confusion with reported O2 saturation in the 60s at home. Nephrology is consulted to resume peritoneal dialysis. Cardiology was consulted with regard to plans for permanent pacemaker. 09/17 Patient seen and examined. No acute events overnight. and environmental monitoring specialist at bedside. His environmental monitoring specialist reports that patient usually gets hypoxic when ambulating. Family requesting wound care consult. States that patient appears shaky. 09/18 Patient seen and examined. No acute events overnight. Patient reports continued epigastric pain but unable to describe. He reports a bowel movement yesterday but nursing reports last bowel movement was 5/6. No more nausea and vomiting. 09/19 Patient seen and examined. Infectious disease consulted for worsening leukocytosis and cefdinir switched to cefepime. His mentation appears at baseline this morning. He denies any complaints besides feeling hot and cold. 09/20 Patient seen and examined. He has 2 bowel movements yesterday and 1 today. Patient reports improvement in his abdominal pain. He continues to have persistent leukocytosis of 16.2. CRP is elevated at 22.8. Procalcitonin elevated at 12.6. 09/21 Patient seen and examined. He has 2 bowel movements yesterday and 1 today. Lactulose will be discontinued. He continues to have persistent leukocytosis of 19. Peritoneal fluid analysis is not consistent with SBP, cultures pending. Blood cultures negative so far. Urine culture negative. 09/22 Patient seen and examined. Overnight, patient was transferred to ICU for hypotension, SBP in the 70s. He received 3 500 mL bolus along with 1 L bolus of normal saline this morning. Also started on Midodrine. His blood pressure has improved since then. He reports no complaints. Seen with his at bedside. Started on Anidulafungin by ID yesterday. General: nontoxic, no distress, appears at stated age Derm: warm, dry, bilateral heel wounds, has pacemaker with external generator. Head: atraumatic, normocephalic, symmetric Eyes: EOMI, no lid lag, anicteric sclera ENT: Nose and ears atraumatic Cardiovascular: Normal S1 S2, no murmur, no edema Lungs: clear to auscultation bilateral, no rhonchi, no rales, no wheeze, no accessory muscle use, supplemental oxygen Peritoneal dialysis catheter in place. Abdomen slightly distended. Ext: no gross muscle atrophy, muscle strength muscle strength 5 out of 5 in all 4 extremities, no contractures Psych: Alert, oriented, appropriate affect Acute metabolic encephalopathy with Leukocytosis and dysphagia Acute hypoxic respiratory failure secondary to volume overload Syncopal episode possibly related to hypoxia Troponin elevation ESRD on intermittent hemodialysis as well as peritoneal dialysis Hyponatremia Bilateral heel wounds present on admission Resolved: HypoK Chronic conditions: Hypertension, Chronic microcytic anemia, third-degree AV block status post pacemaker with external generator, Diastolic CHF Based on my assessment of this patient, this patient meets a moderate complexity level of care. Patient has an acute diagnosis of acute hypoxic respiratory failure secondary to volume overload in the setting of ESRD that poses a threat to life or bodily function. He is confused as a result of this. Nephrology has been consulted to resume dialysis. Cardiology consulted for workup of syncope, plans for PPM when infectious workup is complete. He will be placed on fall precautions. Telemetry monitoring as ordered. Patient is elevated troponins at baseline with regard to his previous admission. ACS has been ruled out. Patient has elevated WBC count of 22.9 to 18.9 to 16.9 to 16.2 to 19 to 19.9 today. He does not meet sepsis criteria. No current obvious source of infection. Cefdinir switching to Cefepime 1 g IV BID for infectious workup due to confusion on 09/18. UA shows trace LE. CRP is elevated at 22.8. Procalcitonin elevated at 12.6. Peritoneal fluid analysis is not consistent with SBP, cultures pending. Blood cultures negative so far. Urine culture negative. Infectious disease on board. We will consult hematology as his leukocytosis appears to be non-infectious since cultures are negative. Sodium of 128. To be managed with dialysis. His hemoglobin appears at baseline and he has no active signs of bleeding at th is time. Attempt to preform home O2 eval when working with PT and OT. Gout - Allopurinol 100 mg PO QD. Hypertension - Lisinoprl 5 mg PO QD, Hydralazine 50 mg PO BID. Heparin SQ for DVT prophylaxis. FULL CODE. I have reviewed the following hospice care consultant notes: None. I have reviewed the results of the following tests: CBC shows leukocytosis of 19.9 and hemoglobin of 10.3. BMP shows sodium of 128, chloride of 94, BUN of 65, creatinine of 5.3. CRP 18.2. Peritoneal culture, Urine culture, Blood culture negative so far. I have ordered the following tests: CBC and BMP ordered for tomorrow morning. I have discussed the care of this patient with the following independent historian: None. I have independently interpreted the following test below: The case was discussed with the RN and . I have discussed the management of this patient with the following physician: None. Objective - Vital Signs Vital signs: Vital Signs Temp 97.8 F 09/22/22 12:20 Pulse 70 09/22/22 14:00 Resp 16 09/22/22 14:00 BP 135/51 09/22/22 14:00 Pulse Ox 95 09/22/22 14:00 FiO2 Intake & Output 09/21/22 09/22/22 09/22/22 18:59 06:59 18:59 Intake Total 748 2085 550 Output Total 0 Balance 748 2085 550 Weight 69 kg Intake: IV 585 200 0.9 IVF 75 150 Cefepime 1 gm In Sodium 50 Chloride 0.9% 50 ml @ 12. 5 mls/hr IVPB Q24HR [facility] Rx#:[id number] Invasive Line 3 510 Intake, IV Titration 150 1500 Amount Anidulafungin 100 mg In 100 Sodium Chloride 0.9% 100 ml @ 84 mls/hr IVPB DAILY @1400 [facility] Rx#:[id number] Cefepime 1 gm In Sodium 50 Chloride 0.9% 50 ml @ 12. 5 mls/hr IVPB Q24HR [facility] Rx#:[id number] Sodium Chloride 0.9% 1, 1000 000 ml @ 999 mls/hr IV . Q1H1M [facility] Rx#:[id number] Sodium Chloride 0.9% 500 500 ml 500 ml @ 999 mls/hr IV .Q31M [facility] Rx#:[id number] Oral 598 350 Output: Urine 0 Other: Voiding Method Diaper CAPD Incontinent # Voids 1 # Bowel Movements 3 - Labs CBC & Chem 7: 09/22/22 06:11 09/22/22 06:11 Labs: Abnormal Lab Results - Last 24 Hours (Table) 09/22/22 09/22/22 09/22/22 Range/Units 00:20 03:50 06:11 WBC 19.9 H (3.8-10.6) k/uL RBC 3.47 L (4.30-5.90) m/uL Hgb 10.3 L (13.0-17.5) gm/dL Hct 34.0 L (39.0-53.0) % MCHC 30.3 L (31.0-37.0) g/dL RDW 16.6 H (11.5-15.5) % Neutrophils # (Manual) 17.10 H (1.3-7.7) k/uL Monocytes # (Manual) 1.59 H (0-1.0) k/uL Sodium (137-145) mmol/L Chloride (98-107) mmol/L BUN (9-20) mg/dL Creatinine (0.66-1.25) mg/dL POC Glucose (mg/dL) 112 H 124 H (70-110) mg/dL C-Reactive Protein (<1.0) mg/dL 09/22/22 Range/Units 06:11 WBC (3.8-10.6) k/uL RBC (4.30-5.90) m/uL Hgb (13.0-17.5) gm/dL Hct (39.0-53.0) % MCHC (31.0-37.0) g/dL RDW (11.5-15.5) % Neutrophils # (Manual) (1.3-7.7) k/uL Monocytes # (Manual) (0-1.0) k/uL Sodium 128 L (137-145) mmol/L Chloride 94 L (98-107) mmol/L BUN 65 H (9-20) mg/dL Creatinine 5.30 H (0.66-1.25) mg/dL POC Glucose (mg/dL) (70-110) mg/dL C-Reactive Protein 18.2 H (<1.0) mg/dL Microbiology - Last 24 Hours (Table) 09/19/22 08:51 Blood Culture - Preliminary Blood 09/18/22 12:33 Gram Stain - Preliminary Peritoneal Fluid Body Fluid Culture - Preliminary 09/21/22 00:22 Gram Stain - Preliminary Peritoneal Fluid Body Fluid Culture - Preliminary
[2022-09-22] MEDS ORDERED: VANCOMYCIN 1,250 MG in SODIUM CHLORIDE 0.9% 250 ML IVPB ONE (15:30)
--- NOTE | 2022-09-22 16:06 | P.PN ---
Subjective Progress Note Date: 09/22/22 Principal diagnosis: Leukocytosis Patient is 86-year-old male with multiple comorbidities including heart failure heart block requiring transvenous pacemaker placement also with a history of end-stage renal disease on peritoneal dialysis presenting to the hospital 09/14/2022" apparently the patient had a syncopal episode, patient also noticed to have elevated white count and elevated inflammatory markers On today's evaluation and that is 09/22/2022, the patient continues to be afebrile, the patient was transferred onto to because of hypotension, required medicinal medication and fluid and blood pressures seem to have improved per the nursing staff, the patient is breathing comfortably on room air, the patient denies having any chest pain did have some cough but no sputum production, no nausea no vomiting no abdominal and no diarrhea has been reported Objective - Vital Signs Vital signs: Vital Signs Temp 97.8 F 09/22/22 12:20 Pulse 69 09/22/22 13:00 Resp 25 H 09/22/22 13:00 BP 133/56 09/22/22 13:00 Pulse Ox 92 L 09/22/22 13:00 FiO2 Intake & Output 09/21/22 09/22/22 09/22/22 18:59 06:59 18:59 Intake Total 748 2085 200 Output Total 0 Balance 748 2085 200 Weight 69 kg Intake: IV 585 200 0.9 IVF 75 150 Cefepime 1 gm In Sodium 50 Chloride 0.9% 50 ml @ 12. 5 mls/hr IVPB Q24HR [facility] Rx#:[id number] Invasive Line 3 510 Intake, IV Titration 150 1500 Amount Anidulafungin 100 mg In 100 Sodium Chloride 0.9% 100 ml @ 84 mls/hr IVPB DAILY @1400 [facility] Rx#:[id number] Cefepime 1 gm In Sodium 50 Chloride 0.9% 50 ml @ 12. 5 mls/hr IVPB Q24HR [facility] Rx#:[id number] Sodium Chloride 0.9% 1, 1000 000 ml @ 999 mls/hr IV . Q1H1M [facility] Rx#:[id number] Sodium Chloride 0.9% 500 500 ml 500 ml @ 999 mls/hr IV .Q31M [facility] Rx#:[id number] Oral 598 Output: Urine 0 Other: Voiding Method Diaper CAPD Incontinent # Bowel Movements 3 - Exam GENERAL DESCRIPTION: An elderly male lying in bed in no distress RESPIRATORY SYSTEM: Unlabored breathing , decreased breath sounds at bases HEART: S1 S2 regular rate and rhythm , ABDOMEN: Soft , no tenderness EXTREMITIES: Bilateral heel wounds are currently dressed - Labs CBC & Chem 7: 09/22/22 06:11 09/22/22 06:11 Labs: Abnormal Lab Results - Last 24 Hours (Table) 09/22/22 09/22/22 09/22/22 Range/Units 00:20 03:50 06:11 WBC 19.9 H (3.8-10.6) k/uL RBC 3.47 L (4.30-5.90) m/uL Hgb 10.3 L (13.0-17.5) gm/dL Hct 34.0 L (39.0-53.0) % MCHC 30.3 L (31.0-37.0) g/dL RDW 16.6 H (11.5-15.5) % Neutrophils # (Manual) 17.10 H (1.3-7.7) k/uL Monocytes # (Manual) 1.59 H (0-1.0) k/uL Sodium (137-145) mmol/L Chloride (98-107) mmol/L BUN (9-20) mg/dL Creatinine (0.66-1.25) mg/dL POC Glucose (mg/dL) 112 H 124 H (70-110) mg/dL C-Reactive Protein (<1.0) mg/dL 09/22/22 Range/Units 06:11 WBC (3.8-10.6) k/uL RBC (4.30-5.90) m/uL Hgb (13.0-17.5) gm/dL Hct (39.0-53.0) % MCHC (31.0-37.0) g/dL RDW (11.5-15.5) % Neutrophils # (Manual) (1.3-7.7) k/uL Monocytes # (Manual) (0-1.0) k/uL Sodium 128 L (137-145) mmol/L Chloride 94 L (98-107) mmol/L BUN 65 H (9-20) mg/dL Creatinine 5.30 H (0.66-1.25) mg/dL POC Glucose (mg/dL) (70-110) mg/dL C-Reactive Protein 18.2 H (<1.0) mg/dL Microbiology - Last 24 Hours (Table) 09/19/22 08:51 Blood Culture - Preliminary Blood 09/18/22 12:33 Gram Stain - Preliminary Peritoneal Fluid Body Fluid Culture - Preliminary 09/21/22 00:22 Gram Stain - Preliminary Peritoneal Fluid Body Fluid Culture - Preliminary Assessment and Plan (1) Leukocytosis Current Visit: Yes Status: Acute Code(s): D72.829 - ELEVATED WHITE BLOOD CELL COUNT, UNSPECIFIED SNOMED Code(s): 875937719 (2) Elevated procalcitonin Current Visit: Yes Status: Acute Code(s): R79.89 - OTHER SPECIFIED ABNORMAL FINDINGS OF BLOOD CHEMISTRY SNOMED Code(s): 594305505 Plan: 1patient with elevated white count in this patient presented to hospital with syncopal episode did have hypoxemia requiring supplemental oxygen, also with a cough with a question of possible pneumonia versus SBP as there is no evidence of any cellulitis at his pacemaker site no evidence of any joint swelling abdomen was soft medical examination 2-Patient with bilateral heel unstageable pressure ulcer right greater than left with a necrotic base but no surrounding redness no evidence of any cellulitis local care to continue with a dry protective dressing keep the area of the pressure 3-patient did have persistent elevated white count however cultures remains to be negative we will add vancomycin while waiting for repeat cultures to finalize and monitor clinical course closely prognosis remains to be guarded Time with Patient: Less than 30
[2022-09-22] MEDS: ANIDULAFUNGIN 100 MG in SODIUM CHLORIDE 0.9% 100 ML IVPB SCH (16:17)
--- NOTE | 2022-09-22 16:22 | XR ---
EXAMINATION TYPE: XR chest 1V portable DATE OF EXAM: 09/22/2022 COMPARISON: 09/20/2022 INDICATION: Persistent cough TECHNIQUE: Single frontal view of the chest is obtained. FINDINGS: The heart size is borderline prominent. The pulmonary vasculature is prominent. Mild increased lung markings. No focal consolidations are evident. IMPRESSION: 1. Clinical consideration for mild congestive heart failure. Follow-up is recommended.
--- NOTE | 2022-09-22 16:56 | P.PN ---
Subjective Progress Note Date: 09/22/22 Follow-up for peritoneal dialysis. Transfer to ICU last night for hypotension. Responded to fluids, currently doing well. Objective - Vital Signs Vital signs: Vital Signs Temp 98 F 09/22/22 16:00 Pulse 71 09/22/22 16:00 Resp 25 H 09/22/22 16:00 BP 151/71 09/22/22 16:00 Pulse Ox 94 L 09/22/22 16:00 FiO2 Intake & Output 09/21/22 09/22/22 09/22/22 18:59 06:59 18:59 Intake Total 748 2085 550 Output Total 0 Balance 748 2085 550 Weight 69 kg Intake: IV 585 200 0.9 IVF 75 150 Cefepime 1 gm In Sodium 50 Chloride 0.9% 50 ml @ 12. 5 mls/hr IVPB Q24HR [facility] Rx#:[id number] Invasive Line 3 510 Intake, IV Titration 150 1500 Amount Anidulafungin 100 mg In 100 Sodium Chloride 0.9% 100 ml @ 84 mls/hr IVPB DAILY @1400 [facility] Rx#:[id number] Cefepime 1 gm In Sodium 50 Chloride 0.9% 50 ml @ 12. 5 mls/hr IVPB Q24HR [facility] Rx#:[id number] Sodium Chloride 0.9% 1, 1000 000 ml @ 999 mls/hr IV . Q1H1M [facility] Rx#:[id number] Sodium Chloride 0.9% 500 500 ml 500 ml @ 999 mls/hr IV .Q31M [facility] Rx#:[id number] Oral 598 350 Output: Urine 0 Other: Voiding Method Diaper Diaper Incontinent CAPD # Voids 1 # Bowel Movements 3 - Exam No acute distress S1-S2 heard Abdomen soft No edema - Labs CBC & Chem 7: 09/22/22 06:11 09/22/22 06:11 Labs: Abnormal Lab Results - Last 24 Hours (Table) 09/22/22 09/22/22 09/22/22 Range/Units 00:20 03:50 06:11 WBC 19.9 H (3.8-10.6) k/uL RBC 3.47 L (4.30-5.90) m/uL Hgb 10.3 L (13.0-17.5) gm/dL Hct 34.0 L (39.0-53.0) % MCHC 30.3 L (31.0-37.0) g/dL RDW 16.6 H (11.5-15.5) % Neutrophils # (Manual) 17.10 H (1.3-7.7) k/uL Monocytes # (Manual) 1.59 H (0-1.0) k/uL Sodium (137-145) mmol/L Chloride (98-107) mmol/L BUN (9-20) mg/dL Creatinine (0.66-1.25) mg/dL POC Glucose (mg/dL) 112 H 124 H (70-110) mg/dL C-Reactive Protein (<1.0) mg/dL 09/22/22 Range/Units 06:11 WBC (3.8-10.6) k/uL RBC (4.30-5.90) m/uL Hgb (13.0-17.5) gm/dL Hct (39.0-53.0) % MCHC (31.0-37.0) g/dL RDW (11.5-15.5) % Neutrophils # (Manual) (1.3-7.7) k/uL Monocytes # (Manual) (0-1.0) k/uL Sodium 128 L (137-145) mmol/L Chloride 94 L (98-107) mmol/L BUN 65 H (9-20) mg/dL Creatinine 5.30 H (0.66-1.25) mg/dL POC Glucose (mg/dL) (70-110) mg/dL C-Reactive Protein 18.2 H (<1.0) mg/dL Microbiology - Last 24 Hours (Table) 09/19/22 08:51 Blood Culture - Preliminary Blood 09/18/22 12:33 Gram Stain - Preliminary Peritoneal Fluid Body Fluid Culture - Preliminary 09/21/22 00:22 Gram Stain - Preliminary Peritoneal Fluid Body Fluid Culture - Preliminary Assessment and Plan Assessment: #1 ESRD on PD #2 severe sepsis with hypotension. Workup so far negative. #3 anemia with ESRD #4 metabolic bone disease #5 complete heart block status post pacemaker Plan: #1 continue current exchanges with peritoneal dialysis #2 no peritonitis on abdominal fluid #3 antibiotics as per infectious disease #4 appreciate ICU input.
[2022-09-22] MEDS: ONDANSETRON 4 MG/2 ML VIAL IVP PRN (22:09)
[2022-09-22] MEDS: ACETAMINOPHEN TAB 325 MG TAB PO PRN (22:15)
[2022-09-22] MEDS: guaiFENesin SYRUP 100MG/5ML 200 MG/10 ML CUP PO PRN (22:16)
[2022-09-23] MEDS: DIALYSIS (PERIT 1.5%) 2,500 ML 37.5 G/2,500 ML BAG INTRAPERIT SCH (00:49)
[2022-09-23] MEDS: HEPARIN SODIUM,PORCINE/PF 5,000 UNIT/0.5 ML SYRINGE SQ SCH ×4 (00:51→23:50)
[2022-09-23 03:57] LABS: Anisocytosis Slight; HCT 32.8 % (39.0-53.0); HGB 9.9 gm/dL (13.0-17.5); Hypochromasia Moderate; MCH 29.9 pg (25.0-35.0); MCHC 30.1 g/dL (31.0-37.0); MCV 99.2 fL (80.0-100.0); Macrocytosis Slight; Mean Platelet Volume 11.9; Platelet Count 154 k/uL (150-450); RBC 3.31 m/uL (4.30-5.90); RDW 16.6 % (11.5-15.5); WBC 17.9 k/uL (3.8-10.6)
[2022-09-23] MEDS: NOREPINEPHRINE 4 MG in SODIUM CHLORIDE 0.9% 250 ML IV SCH (04:03)
[2022-09-23 04:25] LABS: Calcium 9.8 mg/dL (8.4-10.2)
[2022-09-23 04:27] LABS: Band Neutrophils % 10 %; Lymphocytes # (M) 0.54 k/uL (1.0-4.8); Monocytes # (M) 1.97 k/uL (0-1.0); Neutrophils % (M) 76 %; Nucleated Red Blood Cells 0 /100 WBC (0-0); Total Cells Counted 100
[2022-09-23 04:29] LABS: Anisocytosis (M) Present; Poikilocytosis (M) Present
[2022-09-23] MEDS: DIALYSIS (PERIT 2.5%) 2,500 ML 62.5 G/2,500 ML BAG INTRAPERIT SCH ×3 (06:28→17:54)
[2022-09-23] MEDS: POTASSIUM CHLORIDE ER 20 MEQ TAB.ER PO SCH ×2 (07:11→09:05)
[2022-09-23] MEDS: PANTOPRAZOLE 40 MG TABLET PO SCH (07:12)
[2022-09-23] MEDS: MIDODRINE 5 MG TAB PO SCH ×3 (07:46→16:55)
--- NOTE | 2022-09-23 08:55 | P.PN ---
Subjective Patient is seen in follow-up for end-stage renal disease. He is maintained on peritoneal dialysis. No problems with PD changes overnight. Currently having breakfast. On 2 L nasal cannula. Vital signs are stable. General: No acute distress. HEENT: On nasal cannula. LUNGS: Scattered rhonchi. HEART: Rate and Rhythm are regular. ABDOMEN: Nontender. EXTREMITITES: No edema. Objective - Vital Signs Vital signs: Vital Signs Temp 97.5 F L 09/23/22 06:00 Pulse 71 09/23/22 07:00 Resp 14 09/23/22 07:00 BP 152/109 09/23/22 07:00 Pulse Ox 98 09/23/22 07:50 FiO2 Intake & Output 09/22/22 09/23/22 09/23/22 18:59 06:59 18:59 Intake Total 900 Output Total 0 Balance 900 Weight 70.7 kg Intake: IV 550 0.9 IVF 150 Anidulafungin 100 mg In 100 Sodium Chloride 0.9% 100 ml @ 84 mls/hr IVPB DAILY @1400 [facility] Rx#:[id number] Cefepime 1 gm In Sodium 50 Chloride 0.9% 50 ml @ 12. 5 mls/hr IVPB Q24HR [facility] Rx#:[id number] Vancomycin 1,250 mg In 250 Sodium Chloride 0.9% 250 ml @ 125 mls/hr IVPB ONCE [facility] Rx#:[id number] Oral 350 Output: Urine 0 Other: Voiding Method Diaper Diaper CAPD CAPD # Voids 1 1 # Bowel Movements 1 1 - Labs CBC & Chem 7: 09/23/22 03:23 09/23/22 03:23 Labs: Abnormal Lab Results - Last 24 Hours (Table) 09/23/22 09/23/22 Range/Units 03:23 03:23 WBC 17.9 H (3.8-10.6) k/uL RBC 3.31 L (4.30-5.90) m/uL Hgb 9.9 L (13.0-17.5) gm/dL Hct 32.8 L (39.0-53.0) % MCHC 30.1 L (31.0-37.0) g/dL RDW 16.6 H (11.5-15.5) % Neutrophils # (Manual) 15.30 H (1.3-7.7) k/uL Lymphocytes # (Manual) 0.54 L (1.0-4.8) k/uL Monocytes # (Manual) 1.97 H (0-1.0) k/uL Sodium 127 L (137-145) mmol/L Potassium 3.0 L (3.5-5.1) mmol/L Chloride 91 L (98-107) mmol/L BUN 63 H (9-20) mg/dL Creatinine 5.09 H (0.66-1.25) mg/dL Glucose 112 H (74-99) mg/dL Microbiology - Last 24 Hours (Table) 09/18/22 12:33 Gram Stain - Preliminary Peritoneal Fluid Body Fluid Culture - Preliminary 09/19/22 08:51 Blood Culture - Preliminary Blood 09/21/22 00:22 Gram Stain - Preliminary Peritoneal Fluid Body Fluid Culture - Preliminary Assessment and Plan Plan: Assessment: 1. End-stage renal disease maintained on peritoneal dialysis. 2. Bilateral heel wounds being followed by infectious disease. White count trending down. No evidence of peritonitis. On antibiotics. Hematology also consulted. 3. Anemia of chronic kidney disease maintained on Aranesp. 4. Chronic kidney disease mineral bone disease maintained on calcitriol. 5. Hypokalemia from poor intake and PD losses. 6. Hyponatremia secondary to chronic kidney disease. Hypervolemic. 7. Acute hypoxic respiratory failure. Plan: Change PD exchanges to 2.5 L every 6 hours with 2.5% solution. Potassium replaced. Add 1500 mL fluid restriction. Encouraged oral intake. Check magnesium level. Hold Tums as calcium level on higher side.
[2022-09-23] MEDS ORDERED: hydrALAZINE HCL 50 MG TAB PO SCH (09:00)
[2022-09-23] MEDS: lisinopriL 5 MG TAB PO SCH (09:03)
[2022-09-23] MEDS: ANAGRELIDE 0.5 MG CAP PO SCH ×2 (09:04→20:07)
[2022-09-23] MEDS: CEFEPIME 1 GM in SODIUM CHLORIDE 0.9% 50 ML IVPB SCH (09:05)
[2022-09-23] MEDS: HYDROPHILIC CREAM 180 GM TUBE TOPICAL SCH (09:06)
[2022-09-23] MEDS: allopurinoL 100 MG TAB PO SCH (09:09)
[2022-09-23] MEDS: LIDOCAINE 5% PATCH TOPICAL SCH (09:09)
[2022-09-23] MEDS ORDERED: POTASSIUM CHLORIDE ER 20 MEQ TAB.ER PO STA (10:05)
[2022-09-23] MEDS: POTASSIUM CHLORIDE 10 MEQ in WATER FOR INJECTION 1 100ML.BAG IVPB SCH (10:06)
[2022-09-23] MEDS: MAGNESIUM SULFATE-D5W PMX 1 GM in DEXTROSE/WATER 1 100ML.BAG IVPB SCH ×3 (10:34→12:56)
[2022-09-23] MEDS: guaiFENesin SYRUP 100MG/5ML 200 MG/10 ML CUP PO PRN ×2 (11:51→20:09)
--- NOTE | 2022-09-23 11:57 | P.PN ---
Subjective Progress Note Date: 09/23/22 Principal diagnosis: Hypertension, secondary to hypovolemia. I was asked to transfer this patient yesterday to the ICU because of hypotension. His systolic blood pressure was as low as the 70s and for that reason the patient got transferred to the ICU. He is an 86-year-old male patient who was recently discharged from the hospital. He was in a hospital last month with a complete heart block and the patient received a temporary external pacemaker. He is known having complete heart block along with chronic diastolic heart failure and end-stage renal disease on peritoneal dialysis. He also has advanced dementia. The patient was hospitalized on 09/15/2022 due to concerns of confusion and hypoxemia. He was being managed on the medical floor. He was seen by various consultants including cardiology and nephrology. Initially was thought to be in some mild fluid overload and the patient was given CAPD exchanges with 4.25% solution alternating with 2.5% solution to help increase his ultrafiltration. He was also found to be in a manic and he was given Aranesp . Infectious disease was also involved in his care as the patient had an elevated white count. He remained afebrile. His breathing is comfortable and patient is currently on room air oxygen. No nausea or vomiting or abdominal pain. No diarrhea. After arriving to the ICU, the patient was given fluid boluses. The patient was given 1.5 L in addition to midodrine and his current blood pressure is 113/90. His cardiac rhythm is paced. Pulse ox is 94% on room air oxygen. Blood work from today is showing a white cell count of 19 with a hemoglobin of 10.3 and a platelet count of 183. Sodium is at 128, potassium is at 3.5, BUN is at 65 with a creatinine of 5.3. Peritoneal fluid was checked and it was negative for any infection. The body fluid from the peritoneal is also negative for culture. Blood culture is negative thus far. The patient is currently on IV cefepime per IDs recommendation. He is also taking Eraxis. Chest x-ray was done on 09/20/2022 shows some cardiomegaly without any acute abnormalities. His most recent echocardiogram from 08/19/2022 showed a left posterior ejection fraction 45-50% along with moderate to severe mitral regurgitation. His swallow evaluation done on 09/19/2022 was showing some mild delayed swallow with residual no penetration or aspiration. Reevaluated today on 09/23/2022, patient remains in the ICU, hemodynamically stable, not requiring any pressors. When patient was transferred to the ICU back on 09/21 he had a brief course of norepinephrine for hypotension. This has resolved, patient has been off norepinephrine for the last 24 hours. Remains empirically on cefepime and vancomycin, he has external temporary pacemaker in place, patient is supposed to be transferred out of the ICU to a monitor bed on . Pulmonary-guevara is doing well, on 2 L nasal cannula, not in any distress. Still undergoing peritoneal dialysis. And being followed by nephrology. Patient is being considered for permanent pacemaker implantation, however the decision is not finally made by cardiology regarding whether he has to have permanent pacemaker placement. WBC count today 17.9, improving hemoglobin is 9.9 about the same electrolytes showed low sodium of 127 low potassium of 3.0 BUN is 63 creatinine 5.09. C-reactive protein is 18.2. Chest x-ray showed mild congestive heart failure changes Objective - Vital Signs Vital signs: Vital Signs Temp 97.6 F 09/23/22 08:00 Pulse 70 09/23/22 08:00 Resp 20 09/23/22 08:00 BP 147/103 09/23/22 08:00 Pulse Ox 93 L 09/23/22 08:00 FiO2 Intake & Output 09/22/22 09/23/22 09/23/22 18:59 06:59 18:59 Intake Total 900 290 Output Total 0 Balance 900 290 Weight 70.7 kg Intake: IV 550 50 0.9 IVF 150 Anidulafungin 100 mg In 100 Sodium Chloride 0.9% 100 ml @ 84 mls/hr IVPB DAILY @1400 [facility] Rx#:[id number] Cefepime 1 gm In Sodium 50 50 Chloride 0.9% 50 ml @ 12. 5 mls/hr IVPB Q24HR [facility] Rx#:[id number] Vancomycin 1,250 mg In 250 Sodium Chloride 0.9% 250 ml @ 125 mls/hr IVPB ONCE ONE Rx#:[id number] Oral 350 240 Output: Urine 0 Other: Voiding Method Diaper Diaper Diaper CAPD CAPD CAPD # Voids 1 1 # Bowel Movements 1 1 - Exam Physical Exam revealed 86-year-old white male in no distress. Head: Atraumatic, normocephalic. HEENT:[Neck is supple.] [No neck masses.] [No thyromegaly.] [No JVD.]Right subclavian temporary pacemaker is noted. Chest: Symmetrical chest expansion minimal fine crackles at the bases no rhonchi and no wheezes Cardiac Exam: [Normal S1 and S2, no S3 gallop,2/6 systolic murmur thought the precordium. Abdomen: [Soft, nontender, no megaly, no rebound, no guarding, normal bowel sounds.] Extremities: [No clubbing, no edema, no cyanosis.] Neurological Exam: [No focal neurologic deficit.]Alert and oriented 3. Psychiatric: Normal mood, affect and normal mental status examination. - Labs CBC & Chem 7: 09/23/22 03:23 09/23/22 03:23 Labs: Abnormal Lab Results - Last 24 Hours (Table) 09/23/22 09/23/22 09/23/22 Range/Units 03:23 03:23 03:23 WBC 17.9 H (3.8-10.6) k/uL RBC 3.31 L (4.30-5.90) m/uL Hgb 9.9 L (13.0-17.5) gm/dL Hct 32.8 L (39.0-53.0) % MCHC 30.1 L (31.0-37.0) g/dL RDW 16.6 H (11.5-15.5) % Neutrophils # (Manual) 15.30 H (1.3-7.7) k/uL Lymphocytes # (Manual) 0.54 L (1.0-4.8) k/uL Monocytes # (Manual) 1.97 H (0-1.0) k/uL Sodium 127 L (137-145) mmol/L Potassium 3.0 L (3.5-5.1) mmol/L Chloride 91 L (98-107) mmol/L BUN 63 H (9-20) mg/dL Creatinine 5.09 H (0.66-1.25) mg/dL Glucose 112 H (74-99) mg/dL Magnesium 1.5 L (1.6-2.3) mg/dL Microbiology - Last 24 Hours (Table) 09/21/22 00:22 Gram Stain - Preliminary Peritoneal Fluid Body Fluid Culture - Preliminary 09/19/22 08:51 Blood Culture - Preliminary Blood 09/18/22 12:33 Gram Stain - Preliminary Peritoneal Fluid Body Fluid Culture - Preliminary Assessment and Plan Assessment: Impression: Hypotension most likely related to abnormal fluid balance, likely hypovolemic in nature History of complete heart block and has external pacemaker in place being considered for permanent pacemaker placement Moderate severe mitral regurgitation End-stage renal disease, on peritoneal dialysis. Mild dementia with impairment of cognitive functions Anemia of chronic disease Electrolytes imbalance secondary to his renal failure and peritoneal dialysis Stage II coccygeal ulcer Recommendation: Continue peritoneal dialysis Continue midodrine for low blood pressure Continue antibiotics empirically as per infectious disease on the case Continue to monitor cultures including blood cultures and peritoneal fluid cultures Patient had swallow evaluation, passed his swallow evaluation Consider Pacemaker implantation, being addressed by cardiology Could consider transferring the patient out of the ICU to a monitor bed on selective We will continue to follow Time with Patient: Less than 30
--- NOTE | 2022-09-23 13:56 | P.CONS ---
History of Present Illness - Reason for Consult Consult date: 09/23/22 leukocytosis Requesting physician: Nicole Ledezma - Chief Complaint SOB/hypoxia - History of Present Illness Patient is an 86-year-old male with multiple comorbidities. We were consulted for leukocytotis. He is a patient of Dr. 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 He has been on anagrelide since with good control of platelet counts. He had a bone marrow biopsy on 11/2012 which revealed stable finding compared to bone marrow done in 2006. The patient presented to the ER for concerns of confusion and hypoxemia. Of note patient was recently discharged from hospital after pacemaker placement. WBCs have ranged [id number] throughout this admission. After trending labs patient is normally in the 8000 range. Infectious disease is following patient and pt is currently on vancomycin, cefepime and eraxis. He is being treated for possible pneumonia versus SPEP. Pt also has unstageable pressure ulcers on bilateral heals. Chest x-ray on 09/22 revealed clinical consideration for mild congestive heart failure. Blood cultures and urine cultures negative. At todays visit patient reports feeling improved. Reports mild shortness of breath. Breathing is mildly labored. Today hemoglobin 9.9, WBC 17.9 with elevated neutrophils and monocytes present, platelets 154,000. Review of Systems 10 point ROS is negative except as stated in the HPI Past Medical History Past Medical History: Heart Failure, Dialysis, Hypertension, Prostate Disorder, Renal Disease Additional Past Medical History / Comment(s): CURRENTLY DOING HEMODIALYSIS @ [facility]). Thrombocytemia/elevated platelets. CKD stage IV. Anemia. BPH. 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 R hand index finger injury/partial amp. Colonoscopy. peritoneal dialysis Past Anesthesia/Blood Transfusion Reactions: No Reported Reaction Type of Cardiac Device: Permanent Pacemaker Device Placement Date:: 09/09/22 Past Psychological History: No Psychological Hx Reported Smoking Status: Never smoker Past Alcohol Use History: Rare Past Drug Use History: None Reported - Past Family History Father Family Medical History: Cancer, Hypertension, Renal Disease Additional Family Medical History / Comment(s): Kidney Cancer Mother Family Medical History: No Reported History Additional Family Medical History / Comment(s): Mother was healthy Medications and Allergies Home Medications Medication Instructions Recorded Confirmed Type Tamsulosin HCl [Flomax] 0.4 mg PO BID 05/24/14 09/14/22 History Anagrelide HCl [Agrylin] 1 mg PO TID 11/08/20 09/14/22 History Vit B Complx C/Folic Acid/Zinc 1 tab PO DAILY 03/19/21 09/14/22 History [Renaplex Tablet] Acetaminophen Tab [Tylenol] 650 mg PO Q4H PRN 08/17/22 09/14/22 History Calcium Carbonate [Tums] 1,000 mg PO TID 08/17/22 09/14/22 History Pantoprazole Sodium [Protonix] 40 mg PO DAILY 08/17/22 09/14/22 History allopurinoL [Zyloprim] 100 mg PO DAILY 08/17/22 09/14/22 History calcitrioL [Calcitriol] 0.25 mcg PO MOTUWETHFR 08/17/22 09/14/22 History hydrALAZINE HCL [Apresoline] 50 mg PO BID 08/17/22 09/14/22 History Darbepoetin Abraham [Aranesp] 40 mcg SQ Q7D #30 each 08/27/22 09/14/22 Rx lisinopriL [Zestril] 5 mg PO DAILY #90 tab 08/27/22 09/14/22 Rx Lidocaine 5% Patch [Lidoderm 5% 1 patch TRANSDERM DAILY 09/14/22 09/14/22 History Patch] Allergies Allergy/AdvReac Type Severity Reaction Status Date / Time No Known Allergies Allergy Verified 09/14/22 20:41 Physical Exam Vitals: Vital Signs Temp Pulse Pulse Pulse Resp BP BP 09/23/22 12:00 98.4 F 70 20 128/50 09/23/22 08:00 97.6 F 70 20 147/103 09/23/22 07:50 09/23/22 07:00 71 14 152/109 09/23/22 06:00 97.5 F L 69 21 162/56 09/23/22 05:00 72 24 96/83 09/23/22 04:00 97.6 F 26 H 118/62 09/23/22 03:00 75 29 H 135/56 09/23/22 02:00 69 100 24 140/77 09/23/22 01:00 69 21 134/61 09/23/22 00:00 97.6 F 70 21 157/72 09/22/22 23:03 69 25 H 157/72 09/22/22 23:00 69 24 143/98 09/22/22 22:00 70 21 162/91 09/22/22 21:00 71 17 155/84 09/22/22 20:00 98.4 F 72 100 19 162/57 09/22/22 19:00 69 25 H 153/73 09/22/22 18:00 71 20 153/73 09/22/22 17:39 98 F 69 22 166/71 09/22/22 17:00 75 24 131/87 09/22/22 16:00 98 F 71 25 H 151/71 09/22/22 15:43 16 09/22/22 15:00 75 19 115/50 09/22/22 14:00 70 16 135/51 09/22/22 13:00 69 25 H 133/56 Pulse Ox 09/23/22 12:00 91 L 09/23/22 08:00 93 L 09/23/22 07:50 98 09/23/22 07:00 09/23/22 06:00 98 09/23/22 05:00 09/23/22 04:00 97 09/23/22 03:00 93 L 09/23/22 02:00 94 L 09/23/22 01:00 94 L 09/23/22 00:00 95 09/22/22 23:03 94 L 09/22/22 23:00 96 09/22/22 22:00 94 L 09/22/22 21:00 92 L 09/22/22 20:00 96 09/22/22 19:00 95 09/22/22 18:00 95 09/22/22 17:39 93 L 09/22/22 17:00 93 L 09/22/22 16:00 94 L 09/22/22 15:43 09/22/22 15:00 95 09/22/22 14:00 95 09/22/22 13:00 92 L Intake and Output 09/22/22 09/23/22 09/23/22 22:59 06:59 14:59 Intake Total 350 290 Output Total 0 Balance 350 290 Intake: IV 350 50 Anidulafungin 100 mg In 100 Sodium Chloride 0.9% 100 ml @ 84 mls/hr IVPB DAILY @1400 [facility] Rx#:[id number] Cefepime 1 gm In Sodium 50 Chloride 0.9% 50 ml @ 12. 5 mls/hr IVPB Q24HR [facility] Rx#:[id number] Vancomycin 1,250 mg In 250 Sodium Chloride 0.9% 250 ml @ 125 mls/hr IVPB ONCE ONE Rx#:[id number] Oral 240 Output: Urine 0 Other: Voiding Method Diaper Diaper Diaper CAPD CAPD CAPD # Voids 1 1 # Bowel Movements 1 1 Weight 70.7 kg - Constitutional General appearance: average body habitus, no acute distress - EENT Eyes: anicteric sclerae, EOMI ENT: hearing grossly normal - Respiratory Respiratory: bilateral: diminished - Cardiovascular Rhythm: regular Heart sounds: normal: S1, S2 Abnormal Heart Sounds: no systolic murmur, no diastolic murmur, no rub, no S3 Gallop, no S4 Gallop, no click, no other - Gastrointestinal General gastrointestinal: soft, no tenderness - Integumentary Integumentary: no cyanotic, no rash - Musculoskeletal Musculoskeletal: generalized weakness - Psychiatric Psychiatric: A&O x's 3, intact judgment & insight Results CBC & Chem 7: 09/23/22 03:23 09/23/22 03:23 Labs: Abnormal Lab Results - Last 24 Hours (Table) 09/23/22 09/23/22 09/23/22 Range/Units 03:23 03:23 03:23 WBC 17.9 H (3.8-10.6) k/uL RBC 3.31 L (4.30-5.90) m/uL Hgb 9.9 L (13.0-17.5) gm/dL Hct 32.8 L (39.0-53.0) % MCHC 30.1 L (31.0-37.0) g/dL RDW 16.6 H (11.5-15.5) % Neutrophils # (Manual) 15.30 H (1.3-7.7) k/uL Lymphocytes # (Manual) 0.54 L (1.0-4.8) k/uL Monocytes # (Manual) 1.97 H (0-1.0) k/uL Sodium 127 L (137-145) mmol/L Potassium 3.0 L (3.5-5.1) mmol/L Chloride 91 L (98-107) mmol/L BUN 63 H (9-20) mg/dL Creatinine 5.09 H (0.66-1.25) mg/dL Glucose 112 H (74-99) mg/dL Magnesium 1.5 L (1.6-2.3) mg/dL Microbiology - Last 24 Hours (Table) 09/21/22 00:22 Gram Stain - Preliminary Peritoneal Fluid Body Fluid Culture - Preliminary 09/19/22 08:51 Blood Culture - Preliminary Blood 09/18/22 12:33 Gram Stain - Preliminary Peritoneal Fluid Body Fluid Culture - Preliminary Chest x-ray: report reviewed Abdominal x-ray: report reviewed CT Scan - head: report reviewed Assessment and Plan (1) Leukocytosis Current Visit: Yes Status: Acute Priority: Medium Code(s): D72.829 - ELEVATED WHITE BLOOD CELL COUNT, UNSPECIFIED SNOMED Code(s): 163359001 Plan: Leukocytosis/Thrombocythemia: -Hx of thrombocythemia since 2000. He has been on anagrelide 1mg BID since, with good control of platelet counts. -WBCs have ranged [id number] throughout this admission. After trending labs patient is normally in the 8000 range. -Today hemoglobin 9.9, WBC 17.9 with elevated neutrophils and monocytes present, platelets 154,000. -Luekocytosis likely r/t to underlying MPN superimposed by infectious /inflammatory process and suspect WBCs to decrease as pt recovers from acute condition -Will adjust anagrelide to BID from TID, and add 81mg aspirin daily -Will continue to monitor counts attests: I have performed H&P and developed impression and plan of care for patient, discussed with dictator. I agree with dictated note, documented as a scribe
[2022-09-23] MEDS: ANIDULAFUNGIN 100 MG in SODIUM CHLORIDE 0.9% 100 ML IVPB SCH (14:55)
[2022-09-23] MEDS: hydrALAZINE HCL 25 MG TAB PO SCH ×2 (15:59→22:26)
[2022-09-23] MEDS: ACETAMINOPHEN TAB 325 MG TAB PO PRN ×2 (15:59→22:26)
[2022-09-23] MEDS ORDERED: VANCOMYCIN 1,250 MG in SODIUM CHLORIDE 0.9% 250 ML IVPB ONE (16:00)
--- NOTE | 2022-09-23 18:01 | P.PN ---
Subjective Progress Note Date: 09/23/22 86-year-old male with history of ESRD on peritoneal dialysis, chronic diastolic heart failure, hypertension, gout presents to the ED for altered mental status. Patient was recently admitted on 08/17 and discharged on 08/26 after a syncopal episode, noted to have a third degree heart block, required CPR for cardiac arrest, fitted for pacemaker with external generator and discharged with plans to follow up outpatient with Cardiology for permenant pacemaker placement. He was once again admitted for altered mentaion and hypoxia from 09/08-09/14, found to be volume overloaded. Patient's fluid status was managed with dialysis with Nephrology following and he was discharged saturating well on room air. He pres ented back to the hospital on 09/14 for syncopal episode, hypoxia and confusion with reported O2 saturation in the 60s at home. Nephrology is consulted to resume peritoneal dialysis. Cardiology was consulted with regard to plans for permanent pacemaker. 09/17 Patient seen and examined. WBC count increased to 22.9 today. and continuous improvement facilitator at bedside. His continuous improvement facilitator reports that patient usually gets hypoxic when ambulating. Family requesting wound care consult. States that patient appears shaky. 09/18 Patient seen and examined. WBC count 18.9. Patient reports continued epigastric pain but unable to describe. He reports a bowel movement yesterday but nursing reports last bowel movement was 09/14. KUB shows ileus/fecal stasis. Brain CT ordered for worsening confusion, showing low attenuation in the parietal lobe similar to previous exam. Patient started on Lactulose for constipation. 09/19 Patient seen and examined. WBC count 16.9. Infectious disease consulted for worsening leukocytosis and cefdinir switched to cefepime. Urine, blood and peritoneal culture ordered. His mentation appears at baseline this morning. 09/20 Patient seen and examined. He has 2 bowel movements today. Patient reports improvement in his abdominal pain. He continues to have persistent leukocytosis of 16.2, continued on cefepime. CRP is elevated at 22.8. Procalcitonin elevated at 12.6. Cultures negative so far. 09/21 Patient seen and examined. He has 1 bowel movement today. Lactulose will be discontinued. He continues to have persistent leukocytosis of 19. Peritoneal fluid analysis is not consistent with SBP, cultures pending. Blood and urine cultures negative so far. 09/22 Patient seen and examined. WBC count 19.9. Overnight, patient was transferred to ICU for hypotension, SBP in the 70s. He received 3 500 mL bolus along with 1 L bolus of normal saline since this morning. Also started on Midodrine. Lisinopril and hydralazine discontinued. His blood pressure has improved since then. He reports no complaints. Seen with his at bedside. Started on Anidulafungin by ID yesterday. Blood, peritoneal and urine cultures negative so far. Hematology consulted for chronic leukocytosis. 09/23 Patient seen and examined. WBC count 17.9. Blood pressure has remained stable, patient has been on the hypertensive side, hydralazine and lisinopril restarted. Blood, peritoneal and urine cultures negative to date. Case was discussed with Dr. Wheat recommends that pacemaker can be placed if we don't believe his leukocytosis is related to infectious cause. General: nontoxic, no distress, appears at stated age Derm: warm, dry, bilateral heel wounds, has pacemaker with external generator. Head: atraumatic, normocephalic, symmetric Eyes: EOMI, no lid lag, anicteric sclera ENT: Nose and ears atraumatic Cardiovascular: Normal S1 S2, no murmur, no edema Lungs: clear to auscultation bilateral, no rhonchi, no rales, no wheeze, no accessory muscle use Peritoneal dialysis catheter in place. Abdomen slightly distended. Ext: no gross muscle atrophy, muscle strength muscle strength 5 out of 5 in all 4 extremities, no contractures Psych: Alert, oriented, appropriate affect Acute metabolic encephalopathy with Leukocytosis Acute hypoxic respiratory failure secondary to volume overload Syncopal episode possibly related to hypoxia Troponin elevation ESRD on intermittent hemodialysis as well as peritoneal dialysis Hyponatremia Hypokalemia Hypomagnesemia Bilateral heel wounds present on admission Chronic conditions: Hypertension, Chronic microcytic anemia, third-degree AV block status post pacemaker with external generator, Diastolic CHF Based on my assessment of this patient, this patient meets a moderate complexity level of care. Patient has an acute diagnosis of acute hypoxic respiratory failure secondary to volume overload in the setting of ESRD that poses a threat to life or bodily function. He is confused as a result of this. Nephrology has been consulted to resume dialysis. Patient is elevated troponins at baseline with regard to his previous admission. ACS has been ruled out. He will be placed on fall preca utions. Telemetry monitoring as ordered. Cardiology consulted for workup of syncope, plans for PPM when infectious workup is complete. Patient has elevated WBC count of 22.9 to 18.9 to 16.9 to 16.2 to 19 to 19.9 to 17.9 today. He does not meet sepsis criteria. No current obvious source of infe ction. Cefdinir switching to Cefepime 1 g IV BID for infectious workup due to worsening leukocytosis and confusion on 09/18. CRP is elevated at 22.8-18.2. Procalcitonin elevated at 12.6. Peritoneal culture, Blood cultures, Urine culture negative to date. Infectious disease on board. Hematology consulted as his leukocytosis appears to be non-infectious since cultures are negative to date. Dr. Wheat recommends that pacemaker can be placed if we don't believe his leukocytosis is related to infectious cause. Sodium of 127. To be managed with dialysis. His hemoglobin appears at baseline and he has no active signs of bleeding at this time. Potassium of 3 and Mg of 1.5 will be replaced today. Attempt to preform home O2 eval when working with PT and OT and during dialysis. Gout - Allopurinol 100 mg PO QD. Hypertension - Lisinoprl 5 mg PO QD, Hydralazine 50 mg PO BID. Heparin SQ for DVT prophylaxis. FULL CODE. I have reviewed the following area development consultant notes: None. I have reviewed the results of the following tests: CBC shows leukocytosis of 17.9 and hemoglobin of 10.3. BMP shows sodium of 127, potassium of 3, chloride of 91, BUN of 63, creatinine of 5.09. Mg 1.5. Peritoneal culture, Urine culture, Blood culture negative. I have ordered the following tests: CBC and BMP ordered for tomorrow morning. I have discussed the care of this patient with the following independent historian: None. I have independently interpreted the following test below: None. I have discussed the management of this patient with the following physician: Case was discussed with Dr. Wheat recommends that pacemaker can be placed if we don't believe his leukocytosis is related to infectious cause. Objective - Vital Signs Vital signs: Vital Signs Temp 97.9 F 09/23/22 16:00 Pulse 70 09/23/22 16:00 Resp 20 09/23/22 16:00 BP 151/52 09/23/22 16:00 Pulse Ox 95 09/23/22 16:00 FiO2 Intake & Output 09/22/22 09/23/22 09/23/22 18:59 06:59 18:59 Intake Total 900 730 Output Total 0 Balance 900 730 Weight 70.7 kg Intake: IV 550 50 0.9 IVF 150 Anidulafungin 100 mg In 100 Sodium Chloride 0.9% 100 ml @ 84 mls/hr IVPB DAILY @1400 [facility] Rx#:[id number] Cefepime 1 gm In Sodium 50 50 Chloride 0.9% 50 ml @ 12. 5 mls/hr IVPB Q24HR [facility] Rx#:[id number] Vancomycin 1,250 mg In 250 Sodium Chloride 0.9% 250 ml @ 125 mls/hr IVPB ONCE ONE Rx#:[id number] Intake, IV Titration 200 Amount Magnesium Sulfate-D5w Pmx 200 1 gm In Dextrose/Water 1 100ml.bag @ 100 mls/hr IVPB Q1H [facility] Rx#: [id number] Oral 350 480 Output: Urine 0 Other: Voiding Method Diaper Diaper Diaper CAPD CAPD CAPD # Voids 1 1 1 # Bowel Movements 1 1 1 - Labs CBC & Chem 7: 09/23/22 03:23 09/23/22 03:23 Labs: Abnormal Lab Results - Last 24 Hours (Table) 09/23/22 09/23/22 09/23/22 Range/Units 03:23 03:23 03:23 WBC 17.9 H (3.8-10.6) k/uL RBC 3.31 L (4.30-5.90) m/uL Hgb 9.9 L (13.0-17.5) gm/dL Hct 32.8 L (39.0-53.0) % MCHC 30.1 L (31.0-37.0) g/dL RDW 16.6 H (11.5-15.5) % Neutrophils # (Manual) 15.30 H (1.3-7.7) k/uL Lymphocytes # (Manual) 0.54 L (1.0-4.8) k/uL Monocytes # (Manual) 1.97 H (0-1.0) k/uL Sodium 127 L (137-145) mmol/L Potassium 3.0 L (3.5-5.1) mmol/L Chloride 91 L (98-107) mmol/L BUN 63 H (9-20) mg/dL Creatinine 5.09 H (0.66-1.25) mg/dL Glucose 112 H (74-99) mg/dL Magnesium 1.5 L (1.6-2.3) mg/dL Microbiology - Last 24 Hours (Table) 09/21/22 00:22 Gram Stain - Preliminary Peritoneal Fluid Body Fluid Culture - Preliminary 09/19/22 08:51 Blood Culture - Preliminary Blood 09/18/22 12:33 Gram Stain - Preliminary Peritoneal Fluid Body Fluid Culture - Preliminary
--- NOTE | 2022-09-23 22:41 | PN ---
PROGRESS NOTE SUBJECTIVE: Mr. Montesinos is an 86-year-old gentleman, who has complex and multiple medical problems including elevated white cell count, who presented to hospital with complete heart block and underwent an externalized permanent pacemaker and because of elevated white cell count, is awaiting permanent pacemaker placement. He is readmitted to hospital with confusion and hypoxia. His BNP is elevated. Pacemaker is functioning normally. ID is on the case. We are awaiting decision making from them. The patient is currently on Apresoline 50 b.i.d., Zestril 5 daily. OBJECTIVE: GENERAL: Comfortable at rest. VITAL SIGNS: Stable. CHEST: Reveals diminished air entry at the bases. HEART: Reveals first and second heart sounds and a systolic murmur at the apex. ABDOMEN: Soft. EXTREMITIES: Reveals mild edema. Peripheral pulses are palpable. ASSESSMENT: 1. Complete heart block. Awaiting permanent pacemaker placement. 2. Persistently elevated white cell count. Awaiting clearance by ID to proceed with permanent pacemaker. 3. Hypertension. PLAN: I will increase the dose of hydralazine to 75 mg t.i.d. for more optimal blood pressure control. MMODL / IJN: [id number] /
[2022-09-24] MEDS: DIALYSIS (PERIT 2.5%) 2,500 ML 62.5 G/2,500 ML BAG INTRAPERIT SCH ×4 (01:01→18:14)
[2022-09-24] MEDS: PANTOPRAZOLE 40 MG TABLET PO SCH (06:35)
[2022-09-24] MEDS: MIDODRINE 5 MG TAB PO SCH ×3 (06:35→17:09)
--- NOTE | 2022-09-24 07:12 | P.PN ---
Subjective Progress Note Date: 09/23/22 Principal diagnosis: Leukocytosis Patient is 86-year-old male with multiple comorbidities including heart failure heart block requiring transvenous pacemaker placement also with a history of end-stage renal disease on peritoneal dialysis presenting to the hospital 09/14/2022" apparently the patient had a syncopal episode, patient also noticed to have elevated white count and elevated inflammatory markers On today's evaluation and that is 09/23/2022, the patient remains to be afebrile, the patient is hemodynamically stable with no need for pressor support at this point, the patient is breathing comfortably on 2 L nasal cannula oxygen, the patient denies having any chest pain did have some cough but no sputum production, no nausea no vomiting no abdominal and no diarrhea has been reported Objective - Vital Signs Vital signs: Vital Signs Temp 97.6 F 09/23/22 08:00 Pulse 70 09/23/22 08:00 Resp 20 09/23/22 08:00 BP 147/103 09/23/22 08:00 Pulse Ox 93 L 09/23/22 08:00 FiO2 Intake & Output 09/22/22 09/23/22 09/23/22 18:59 06:59 18:59 Intake Total 900 290 Output Total 0 Balance 900 290 Weight 70.7 kg Intake: IV 550 50 0.9 IVF 150 Anidulafungin 100 mg In 100 Sodium Chloride 0.9% 100 ml @ 84 mls/hr IVPB DAILY @1400 [facility] Rx#:[id number] Cefepime 1 gm In Sodium 50 50 Chloride 0.9% 50 ml @ 12. 5 mls/hr IVPB Q24HR [facility] Rx#:[id number] Vancomycin 1,250 mg In 250 Sodium Chloride 0.9% 250 ml @ 125 mls/hr IVPB ONCE ONE Rx#:[id number] Oral 350 240 Output: Urine 0 Other: Voiding Method Diaper Diaper Diaper CAPD CAPD CAPD # Voids 1 1 # Bowel Movements 1 1 - Exam GENERAL DESCRIPTION: An elderly male lying in bed in no distress RESPIRATORY SYSTEM: Unlabored breathing , decreased breath sounds at bases HEART: S1 S2 regular rate and rhythm , ABDOMEN: Soft , no tenderness EXTREMITIES: Bilateral heel wounds are currently dressed - Labs CBC & Chem 7: 09/23/22 03:23 09/23/22 03:23 Labs: Abnormal Lab Results - Last 24 Hours (Table) 09/23/22 09/23/22 09/23/22 Range/Units 03:23 03:23 03:23 WBC 17.9 H (3.8-10.6) k/uL RBC 3.31 L (4.30-5.90) m/uL Hgb 9.9 L (13.0-17.5) gm/dL Hct 32.8 L (39.0-53.0) % MCHC 30.1 L (31.0-37.0) g/dL RDW 16.6 H (11.5-15.5) % Neutrophils # (Manual) 15.30 H (1.3-7.7) k/uL Lymphocytes # (Manual) 0.54 L (1.0-4.8) k/uL Monocytes # (Manual) 1.97 H (0-1.0) k/uL Sodium 127 L (137-145) mmol/L Potassium 3.0 L (3.5-5.1) mmol/L Chloride 91 L (98-107) mmol/L BUN 63 H (9-20) mg/dL Creatinine 5.09 H (0.66-1.25) mg/dL Glucose 112 H (74-99) mg/dL Magnesium 1.5 L (1.6-2.3) mg/dL Microbiology - Last 24 Hours (Table) 09/21/22 00:22 Gram Stain - Preliminary Peritoneal Fluid Body Fluid Culture - Preliminary 09/19/22 08:51 Blood Culture - Preliminary Blood 09/18/22 12:33 Gram Stain - Preliminary Peritoneal Fluid Body Fluid Culture - Preliminary Assessment and Plan (1) Leukocytosis Current Visit: Yes Status: Acute Priority: Medium Code(s): D72.829 - ELEVATED WHITE BLOOD CELL COUNT, UNSPECIFIED SNOMED Code(s): 111741990 (2) Elevated procalcitonin Current Visit: Yes Status: Acute Code(s): R79.89 - OTHER SPECIFIED ABNORMAL FINDINGS OF BLOOD CHEMISTRY SNOMED Code(s): 120248092 Plan: 1patient with elevated white count in this patient presented to hospital with syncopal episode did have hypoxemia requiring supplemental oxygen, also with a cough with a question of possible pneumonia versus SBP as there is no evidence of any cellulitis at his pacemaker site no evidence of any joint swelling ab domen was soft medical examination 2-Patient with bilateral heel unstageable pressure ulcer right greater than left with a necrotic base but no surrounding redness no evidence of any cellulitis local care to continue with a dry protective dressing keep the area of the pressure 3-patient white count is down to 17,000 today, cultures remains to be negative patient to continue with cefepime and vancomycin while waiting for repeat cultures to finalize and monitor clinical course closely
[2022-09-24 07:43] LABS: Anisocytosis Slight; HCT 33.7 % (39.0-53.0); HGB 10.2 gm/dL (13.0-17.5); Hypochromasia Moderate; MCH 30.9 pg (25.0-35.0); MCHC 30.4 g/dL (31.0-37.0); MCV 101.7 fL (80.0-100.0); Macrocytosis Slight; Mean Platelet Volume 12.2; Platelet Count 146 k/uL (150-450); RBC 3.31 m/uL (4.30-5.90); RDW 16.6 % (11.5-15.5); WBC 13.6 k/uL (3.8-10.6)
[2022-09-24 09:54] LABS: Calcium 10.4 mg/dL (8.4-10.2); Magnesium 2.1 mg/dL (1.6-2.3); Potassium 3.5 mmol/L (3.5-5.1)
[2022-09-24 09:59] LABS: Vancomycin,Random 19.8 ug/mL
[2022-09-24] MEDS: HEPARIN SODIUM,PORCINE/PF 5,000 UNIT/0.5 ML SYRINGE SQ SCH ×2 (10:01→17:09)
[2022-09-24] MEDS: LIDOCAINE 5% PATCH TOPICAL SCH (10:02)
[2022-09-24] MEDS: CEFEPIME 1 GM in SODIUM CHLORIDE 0.9% 50 ML IVPB SCH (10:02)
[2022-09-24] MEDS: lisinopriL 5 MG TAB PO SCH (10:03)
[2022-09-24] MEDS: ASPIRIN 81 MG PO SCH (10:03)
[2022-09-24] MEDS: hydrALAZINE HCL 25 MG TAB PO SCH ×3 (10:03→20:33)
[2022-09-24] MEDS: allopurinoL 100 MG TAB PO SCH (10:03)
[2022-09-24] MEDS: HYDROPHILIC CREAM 180 GM TUBE TOPICAL SCH (10:03)
[2022-09-24] MEDS: ANAGRELIDE 0.5 MG CAP PO SCH ×2 (10:13→21:08)
[2022-09-24] MEDS ORDERED: POTASSIUM CHLORIDE ER 20 MEQ TAB.ER PO STA (11:20)
--- NOTE | 2022-09-24 11:22 | P.PN ---
Subjective Patient is seen in follow-up for end-stage renal disease. He is maintained on peritoneal dialysis. No problems with PD exchanges overnight. On 2 L nasal cannula. Vital signs are stable. General: No acute distress. HEENT: On nasal cannula. LUNGS: Scattered rhonchi. HEART: Rate and Rhythm are regular. ABDOMEN: Nontender. EXTREMITITES: No edema. Objective - Vital Signs Vital signs: Vital Signs Temp 97.7 F 09/24/22 09:25 Pulse 72 09/24/22 09:25 Resp 18 09/24/22 09:25 BP 117/53 09/24/22 09:25 Pulse Ox 94 L 09/24/22 09:25 FiO2 Intake & Output 09/23/22 09/24/22 09/24/22 18:59 06:59 18:59 Intake Total 1080 10 10 Balance 1080 10 10 Weight 71.5 kg Intake: IV 400 10 10 Anidulafungin 100 mg In 100 Sodium Chloride 0.9% 100 ml @ 84 mls/hr IVPB DAILY @1400 [facility] Rx#:[id number] Cefepime 1 gm In Sodium 50 Chloride 0.9% 50 ml @ 12. 5 mls/hr IVPB Q24HR [facility] Rx#:[id number] Invasive Line 3 10 10 Vancomycin 1,250 mg In 250 Sodium Chloride 0.9% 250 ml @ 125 mls/hr IVPB ONCE ONE Rx#:[id number] Intake, IV Titration 200 Amount Magnesium Sulfate-D5w Pmx 200 1 gm In Dextrose/Water 1 100ml.bag @ 100 mls/hr IVPB Q1H [facility] Rx#: [id number] Oral 480 Other: Voiding Method Diaper Diaper Diaper CAPD CAPD CAPD # Voids 1 # Bowel Movements 1 1 - Labs CBC & Chem 7: 09/24/22 07:23 09/24/22 07:23 Labs: Abnormal Lab Results - Last 24 Hours (Table) 09/24/22 09/24/22 Range/Units 07: 07:23 WBC 13.6 H (3.8-10.6) k/uL RBC 3.31 L (4.30-5.90) m/uL Hgb 10.2 L (13.0-17.5) gm/dL Hct 33.7 L (39.0-53.0) % MCV 101.7 H (80.0-100.0) fL MCHC 30.4 L (31.0-37.0) g/dL RDW 16.6 H (11.5-15.5) % Plt Count 146 L (150-450) k/uL Sodium 130 L (137-145) mmol/L Chloride 92 L (98-107) mmol/L BUN 63 H (9-20) mg/dL Creatinine 4.90 H (0.66-1.25) mg/dL Glucose 131 H (74-99) mg/dL Calcium 10.4 H (8.4-10.2) mg/dL Microbiology - Last 24 Hours (Table) 09/19/22 08:51 Blood Culture - Preliminary Blood 09/22/22 06:11 Blood Culture - Preliminary Blood 09/21/22 00:22 Gram Stain - Preliminary Peritoneal Fluid Body Fluid Culture - Preliminary 09/18/22 12:33 Gram Stain - Preliminary Peritoneal Fluid Body Fluid Culture - Preliminary Assessment and Plan Plan: Assessment: 1. End-stage renal disease maintained on peritoneal dialysis. 2. Bilateral heel wounds being followed by infectious disease. White count trending down. No evidence of peritonitis. On antibiotics. Hematology also following. 3. Anemia of chronic kidney disease maintained on Aranesp. 4. Chronic kidney disease mineral bone disease maintained on calcitriol. 5. Hypokalemia from poor intake and PD losses. Replaced. Improved. 6. Hyponatremia secondary to chronic kidney disease. Hypervolemic. Better. 7. Acute hypoxic respiratory failure. Plan: Maintain current PD exchanges - 2.5 L every 6 hours with 2.5% solution. Replace potassium. Maintain 1500 mL fluid restriction. Encouraged oral intake. Tums stopped. Also stop calcitriol as calcium on the higher side. Hold hydralazine for systolic blood pressure less than 120. Hold midodrine for systolic blood pressure greater than 110.
--- NOTE | 2022-09-24 11:35 | P.PN ---
Subjective Progress Note Date: 09/24/22 HISTORY OF PRESENT ILLNESS: This is an 86-year-old male was admitted to the hospital secondary to altered mental status and hypoxia. Patient examined this morning at the bedside. Chito roa denies chest pain or pressure. He denies shortness of breath. He continues to be on peritoneal dialysis. He continues to have right-sided external pacemaker and is awaiting permanent pacemaker implantation. Vital signs are stable. PHYSICAL EXAM: VITAL SIGNS: Reviewed. GENERAL: Well-developed in no acute distress. NECK: Supple. No JVD or thyromegaly LUNGS: Respirations even and unlabored. Lungs essentially clear to auscultation bilaterally. HEART: Regular rate and rhythm. S1 and S2 heard. Systolic murmur noted. EXTREMITIES: Normal range of motion. No clubbing or cyanosis. Peripheral pulses intact. No lower extremity edema ASSESSMENT: Altered mental status Acute hypoxic respiratory failure Complete heart block with right-sided external pacemaker End-stage renal disease on peritoneal dialysis Chronic congestive heart failure with preserved ejection fraction Dementia Moderate to severe mitral regurgitation PLAN: Continue current cardiac medications Patients left chest site has healed. Blood cultures are negative. Case discussed with infectious disease who has cleared patient to undergo permanent pacemaker implantation however he is still considered high risk because of his overall condition. We will discuss timing of PPM implantation with Dr. Best Further recommendations pending patient's course Nurse practitioner note has been reviewed by physician. Signing provider agrees with the documented findings, assessment, and plan of care. Objective - Vital Signs Vital signs: Vital Signs Temp 97.7 F 09/24/22 09:25 Pulse 72 09/24/22 09:25 Resp 18 09/24/22 09:25 BP 117/53 09/24/22 09:25 Pulse Ox 94 L 09/24/22 09:25 FiO2 Intake & Output 09/23/22 09/24/22 09/24/22 18:59 06:59 18:59 Intake Total 1080 10 10 Balance 1080 10 10 Weight 71.5 kg Intake: IV 400 10 10 Anidulafungin 100 mg In 100 Sodium Chloride 0.9% 100 ml @ 84 mls/hr IVPB DAILY @1400 [facility] Rx#:[id number] Cefepime 1 gm In Sodium 50 Chloride 0.9% 50 ml @ 12. 5 mls/hr IVPB Q24HR [facility] Rx#:[id number] Invasive Line 3 10 10 Vancomycin 1,250 mg In 250 Sodium Chloride 0.9% 250 ml @ 125 mls/hr IVPB ONCE ONE Rx#:[id number] Intake, IV Titration 200 Amount Magnesium Sulfate-D5w Pmx 200 1 gm In Dextrose/Water 1 100ml.bag @ 100 mls/hr IVPB Q1H [facility] Rx#: [id number] Oral 480 Other: Voiding Method Diaper Diaper Diaper CAPD CAPD CAPD # Voids 1 # Bowel Movements 1 1 - Labs CBC & Chem 7: 09/24/22 07:23 09/24/22 07:23 Labs: Abnormal Lab Results - Last 24 Hours (Table) 09/24/22 09/24/22 Range/Units 07:23 07:23 WBC 13.6 H (3.8-10.6) k/uL RBC 3.31 L (4.30-5.90) m/uL Hgb 10.2 L (13.0-17.5) gm/dL Hct 33.7 L (39.0-53.0) % MCV 101.7 H (80.0-100.0) fL MCHC 30.4 L (31.0-37.0) g/dL RDW 16.6 H (11.5-15.5) % Plt Count 146 L (150-450) k/uL Sodium 130 L (137-145) mmol/L Chloride 92 L (98-107) mmol/L BUN 63 H (9-20) mg/dL Creatinine 4.90 H (0.66-1.25) mg/dL Glucose 131 H (74-99) mg/dL Calcium 10.4 H (8.4-10.2) mg/dL Microbiology - Last 24 Hours (Table) 09/19/22 08:51 Blood Culture - Preliminary Blood 09/22/22 06:11 Blood Culture - Preliminary Blood 09/21/22 00:22 Gram Stain - Preliminary Peritoneal Fluid Body Fluid Culture - Preliminary 09/18/22 12:33 Gram Stain - Preliminary Peritoneal Fluid Body Fluid Culture - Preliminary
[2022-09-24 11:48] LABS: Band Neutrophils % 4 %; Basophils # (M) 0.14 k/uL (0-0.2); Lymphocytes # (M) 0.54 k/uL (1.0-4.8); Metamyelocytes # (M) 0.54 k/uL (0); Metamyelocytes % 4 %; Monocytes # (M) 0.68 k/uL (0-1.0); Myelocytes # (M) 0.41 k/uL (0); Myelocytes % 3 %; Neutrophils % (M) 81 %; Nucleated Red Blood Cells 0 /100 WBC (0-0); Total Cells Counted 200
[2022-09-24 11:49] LABS: Rouleaux Present
[2022-09-24 12:47] VITALS: BMI 22.6
--- NOTE | 2022-09-24 12:52 | P.PN ---
Subjective Progress Note Date: 09/24/22 Principal diagnosis: Hypotension, secondary to hypovolemia. I was asked to transfer this patient yesterday to the ICU because of hypotension. His systolic blood pressure was as low as the 70s and for that reason the patient got transferred to the ICU. He is an 86-year-old male patient who was recently discharged from the hospital. He was in a hospital last month with a complete heart block and the patient received a temporary external pacemaker. He is known having complete heart block along with chronic diastolic heart failure and end-stage renal disease on peritoneal dialysis. He also has advanced dementia. The patient was hospitalized on 09/15/2022 due to concerns of confusion and hypoxemia. He was being managed on the medical floor. He was seen by various consultants including cardiology and nephrology. Initially was thought to be in some mild fluid overload and the patient was given CAPD exchanges with 4.25% solution alternating with 2.5% solution to help increase his ultrafiltration. He was also found to be in a manic and he was given Aranesp . Infectious disease was also involved in his care as the patient had an elevated white count. He remained afebrile. His breathing is comfortable and patient is currently on room air oxygen. No nausea or vomiting or abdominal pain. No diarrhea. After arriving to the ICU, the patient was given fluid boluses. The patient was given 1.5 L in addition to midodrine and his current blood pressure is 113/90. His cardiac rhythm is paced. Pulse ox is 94% on room air oxygen. Blood work from today is showing a white cell count of 19 with a hemoglobin of 10.3 and a platelet count of 183. Sodium is at 128, potassium is at 3.5, BUN is at 65 with a creatinine of 5.3. Peritoneal fluid was checked and it was negative for any infection. The body fluid from the peritoneal is also negative for culture. Blood culture is negative thus far. The patient is currently on IV cefepime per IDs recommendation. He is also taking Eraxis. Chest x-ray was done on 09/20/2022 shows some cardiomegaly without any acute abnormalities. His most recent echocardiogram from 08/19/2022 showed a left posterior ejection fraction 45-50% along with moderate to severe mitral regurgitation. His swallow evaluation done on 09/19/2022 was showing some mild delayed swallow with residual no penetration or aspiration. Reevaluated today on 09/23/2022, patient remains in the ICU, hemodynamically stable, not requiring any pressors. When patient was transferred to the ICU back on 09/21 he had a brief course of norepinephrine for hypotension. This has resolved, patient has been off norepinephrine for the last 24 hours. Remains empirically on cefepime and vancomycin, he has external temporary pacemaker in place, patient is supposed to be transferred out of the ICU to a monitor bed on . Pulmonary-guevara is doing well, on 2 L nasal cannula, not in any distress. Still undergoing peritoneal dialysis. And being followed by nephrology. Patient is being considered for permanent pacemaker implantation, however the decision is not finally made by cardiology regarding whether he has to have permanent pacemaker placement. WBC count today 17.9, improving hemoglobin is 9.9 about the same electrolytes showed low sodium of 127 low potassium of 3.0 BUN is 63 creatinine 5.09. C-reactive protein is 18.2. Chest x-ray showed mild congestive heart failure changes Reevaluated today on , patient is now on cardiac floor, I saw him yesterday when he was in the ICU. Patient is doing well, he is hemodynamically stable, not in any distress, sodium is better today up to 130, his renal functioning remains poor the BUN of 63 creatinine 4.90 patient is on hemodialysis. Bicarb is 26. WBC count is 13.6 hemoglobin is 10.2. Patient remains on 2 L nasal cannula with O2 sats of 94% patient is being considered for permanent pacemaker implantation, he was already cleared by infectious disease on the case. Blood cultures and peritoneal cultures have been negative all along. Empirically the patient is on Eraxis, is also on cefepime. Patient is also on vancomycin. Peritoneal fluid from his peritoneal catheter has been negative so far Objective - Vital Signs Vital signs: Vital Signs Temp 98.9 F 09/24/22 11:28 Pulse 76 09/24/22 11:28 Resp 18 09/24/22 11:28 BP 108/53 09/24/22 11:28 Pulse Ox 94 L 09/24/22 11:28 FiO2 Intake & Output 09/23/22 09/24/22 09/24/22 18:59 06:59 18:59 Intake Total 1080 10 10 Balance 1080 10 10 Weight 71.5 kg Intake: IV 400 10 10 Anidulafungin 100 mg In 100 Sodium Chloride 0.9% 100 ml @ 84 mls/hr IVPB DAILY @1400 [facility] Rx#:[id number] Cefepime 1 gm In Sodium 50 Chloride 0.9% 50 ml @ 12. 5 mls/hr IVPB Q24HR [facility] Rx#:[id number] Invasive Line 3 10 10 Vancomycin 1,250 mg In 250 Sodium Chloride 0.9% 250 ml @ 125 mls/hr IVPB ONCE ONE Rx#:[id number] Intake, IV Titration 200 Amount Magnesium Sulfate-D5w Pmx 200 1 gm In Dextrose/Water 1 100ml.bag @ 100 mls/hr IVPB Q1H [facility] Rx#: [id number] Oral 480 Other: Voiding Method Diaper Diaper Diaper CAPD CAPD CAPD # Voids 1 # Bowel Movements 1 1 - Exam Physical Exam revealed 86-year-old white male in no distress. Head: Atraumatic, normocephalic. HEENT:[Neck is supple.] [No neck masses.] [No thyromegaly.] [No JVD.]Right subclavian temporary pacemaker is noted. Chest: Symmetrical chest expansion minimal fine crackles at the bases no rhonchi and no wheezes Cardiac Exam: [Normal S1 and S2, no S3 gallop,2/6 systolic murmur thought the precordium. Abdomen: [Soft, nontender, no megaly, no rebound, no guarding, normal bowel sounds.] Peritoneal dialysis catheter is noted Extremities: [No clubbing, no edema, no cyanosis.] Neurological Exam: [No focal neurologic deficit.]Alert and oriented 3. Psychiatric: Normal mood, affect and normal mental status examination. - Labs CBC & Chem 7: 09/24/22 07:23 09/24/22 07:23 Labs: Abnormal Lab Results - Last 24 Hours (Table) 09/24/22 09/24/22 Range/Units 07:23 07:23 WBC 13.6 H (3.8-10.6) k/uL RBC 3.31 L (4.30-5.90) m/uL Hgb 10.2 L (13.0-17.5) gm/dL Hct 33.7 L (39.0-53.0) % MCV 101.7 H (80.0-100.0) fL MCHC 30.4 L (31.0-37.0) g/dL RDW 16.6 H (11.5-15.5) % Plt Count 146 L (150-450) k/uL Neutrophils # (Manual) 11.50 H (1.3-7.7) k/uL Lymphocytes # (Manual) 0.54 L (1.0-4.8) k/uL Metamyelocytes # (Man) 0.54 H (0) k/uL Myelocytes # (Manual) 0.41 H (0) k/uL Sodium 130 L (137-145) mmol/L Chloride 92 L (98-107) mmol/L BUN 63 H (9-20) mg/dL Creatinine 4.90 H (0.66-1.25) mg/dL Glucose 131 H (74-99) mg/dL Calcium 10.4 H (8.4-10.2) mg/dL Microbiology - Last 24 Hours (Table) 09/19/22 08:51 Blood Culture - Preliminary Blood 09/22/22 06:11 Blood Culture - Preliminary Blood 09/21/22 00:22 Gram Stain - Preliminary Peritoneal Fluid Body Fluid Culture - Preliminary 09/18/22 12:33 Gram Stain - Preliminary Peritoneal Fluid Body Fluid Culture - Preliminary Assessment and Plan Assessment: Impression: Hypotension most likely related to abnormal fluid balance, likely hypovolemic in nature History of complete heart block and has external pacemaker in place being considered for permanent pacemaker placement Moderate severe mitral regurgitation End-stage renal disease, on peritoneal dialysis. Mild dementia with impairment of cognitive functions Anemia of chronic disease Electrolytes imbalance secondary to his renal failure and peritoneal dialysis Stage II coccygeal ulcer Recommendation: Continue peritoneal dialysis Continue midodrine for low blood pressure Continue antibiotics empirically as per infectious disease on the case Blood cultures and peritoneal cultures have been nondiagnostic so far/negative Patient had swallow evaluation, passed his swallow evaluation Pacemaker implantation is being addressed by cardiology, cleared by infectious disease for implantation We will continue to follow Time with Patient: Less than 30
[2022-09-24] MEDS: SODIUM CHLORIDE 0.9% 1,000 ML IV SCH ×2 (13:16)
--- NOTE | 2022-09-24 13:58 | P.PN ---
Subjective Progress Note Date: 09/24/22 Principal diagnosis: leukocytosis At today's visit visit patient is resting comfortably in bed. Patient reports feeling well. Patient reports pain along his coccyx when moving in bed. Patient denies shortness of breath. Breathing is even and unlabored. No other reported complaints at this time Objective - Vital Signs Vital signs: Vital Signs Temp 97.8 F 09/24/22 12:50 Pulse 72 09/24/22 12:50 Resp 18 09/24/22 11:28 BP 108/53 09/24/22 11:28 Pulse Ox 96 09/24/22 12:50 FiO2 Intake & Output 09/23/22 09/24/22 09/24/22 18:59 06:59 18:59 Intake Total 1080 10 10 Balance 1080 10 10 Weight 71.5 kg 71.5 kg Intake: IV 400 10 10 Anidulafungin 100 mg In 100 Sodium Chloride 0.9% 100 ml @ 84 mls/hr IVPB DAILY @1400 [facility] Rx#:[id number] Cefepime 1 gm In Sodium 50 Chloride 0.9% 50 ml @ 12. 5 mls/hr IVPB Q24HR [facility] Rx#:[id number] Invasive Line 3 10 10 Vancomycin 1,250 mg In 250 Sodium Chloride 0.9% 250 ml @ 125 mls/hr IVPB ONCE ONE Rx#:[id number] Intake, IV Titration 200 Amount Magnesium Sulfate-D5w Pmx 200 1 gm In Dextrose/Water 1 100ml.bag @ 100 mls/hr IVPB Q1H [facility] Rx#: [id number] Oral 480 Other: Voiding Method Diaper Diaper Diaper CAPD CAPD CAPD # Voids 1 # Bowel Movements 1 1 - Constitutional General appearance: Present: average body habitus, no acute distress - EENT Eyes: Present: anicteric sclerae, EOMI ENT: Present: hearing grossly normal - Respiratory Details: breathing is even and unlabored - Cardiovascular Details: skin warm and dry - Integumentary Integumentary: Absent: cyanotic, rash - Musculoskeletal Musculoskeletal: Present: generalized weakness - Psychiatric Psychiatric: Present: A&O x's 3, appropriate affect, intact judgment & insight - Labs CBC & Chem 7: 09/24/22 07:23 09/24/22 07:23 Labs: Abnormal Lab Results - Last 24 Hours (Table) 09/24/22 09/24/22 Range/Units 07:23 07:23 WBC 13.6 H (3.8-10.6) k/uL RBC 3.31 L (4.30-5.90) m/uL Hgb 10.2 L (13.0-17.5) gm/dL Hct 33.7 L (39.0-53.0) % MCV 101.7 H (80.0-100.0) fL MCHC 30.4 L (31.0-37.0) g/dL RDW 16.6 H (11.5-15.5) % Plt Count 146 L (150-450) k/uL Neutrophils # (Manual) 11.50 H (1.3-7.7) k/uL Lymphocytes # (Manual) 0.54 L (1.0-4.8) k/uL Metamyelocytes # (Man) 0.54 H (0) k/uL Myelocytes # (Manual) 0.41 H (0) k/uL Sodium 130 L (137-145) mmol/L Chloride 92 L (98-107) mmol/L BUN 63 H (9-20) mg/dL Creatinine 4.90 H (0.66-1.25) mg/dL Glucose 131 H (74-99) mg/dL Calcium 10.4 H (8.4-10.2) mg/dL Microbiology - Last 24 Hours (Table) 09/19/22 08:51 Blood Culture - Preliminary Blood 09/22/22 06:11 Blood Culture - Preliminary Blood 09/21/22 00:22 Gram Stain - Preliminary Peritoneal Fluid Body Fluid Culture - Preliminary 09/18/22 12:33 Gram Stain - Preliminary Peritoneal Fluid Body Fluid Culture - Preliminary Assessment and Plan (1) Leukocytosis Current Visit: Yes Status: Acute Priority: Medium Code(s): D72.829 - ELEVATED WHITE BLOOD CELL COUNT, UNSPECIFIED SNOMED Code(s): 360184563 Plan: Leukocytosis/Thrombocythemia: -Hx of thrombocythemia since 2000. He has been on anagrelide 1mg BID since, with good control of platelet counts. -WBCs have ranged [id number] throughout this admission. After trending labs patient is normally in the 8000 range. -Today hemoglobin 10.2, WBC improving, 13.6, platelets 146,000.-Luekocytosis likely r/t to underlying MPN superimposed by infectious/inflammatory process and suspect WBCs to decrease as pt recovers from acute condition -Anagrelide changed to BID from TID, and 81mg aspirin daily added -Will continue to monitor counts
[2022-09-24] MEDS: ANIDULAFUNGIN 100 MG in SODIUM CHLORIDE 0.9% 100 ML IVPB SCH (14:56)
[2022-09-24] MEDS ORDERED: VANCOMYCIN 1,250 MG in SODIUM CHLORIDE 0.9% 250 ML IVPB ONE (16:00)
--- NOTE | 2022-09-24 17:46 | P.PN ---
Subjective Progress Note Date: 09/24/22 (Delayed charting seen at 11:30) Patient is an 86-year-old male with a history of end-stage renal disease on peritoneal dialysis with intermittent hemodialysis, chronic diastolic heart kevin lure, hypertension, and gout who presented to the emergency department with altered mentation. Of note patient was admitted from 08/17 through 08/26 after a syncopal episode. During that hospital stay he was diagnosed with third degree heart block and had an external generator with plans to follow up with cardiology for permanent pacemaker implantation. He was again admitted for altered mentation and hypoxia from :30 through 09/14 and found to be in volume overload. His fluid status was managed by nephrology with dialysis and he was discharged saturating well on room air. He returned to the hospital on 09/14 for a syncopal episode, hypoxia, and confusion. During this hospital stay nephrology was consulted and patient was resumed on peritoneal dialysis. Cardiology was also consulted for placement of permanent pacemaker. He did have an elevated white blood cell count of 22.9. He did dev elop constipation and KUB demonstrated ileus/fecal stasis. CT head was ordered for worsening confusion which showed low attenuation in the parietal lobe. Similar to previous. He was started on lactulose. On 09/19 infectious disease was consulted for worsening leukocytosis and the patient was switched from cefdinir to cefepime. Blood, urine, and peritoneal cultures were negative. Pro-calcitonin was elevated at 12.6, however this can be elevated and patient with end-stage renal disease. On 09/22 the patient was transferred to the ICU for hypotension with blood pressures in the 70s. He received multiple boluses due to his hypotension. He was started on Minitran and hydralazine and lisino pril were discontinued. He was then started on antifungal in by infectious disease. Hematology was consulted for chronic leukocytosis. Case was discussed with Dr. Wheat and patient has a history of leukocytosis. Patient seen and examined at bedside. He states that he is feeling okay. He denies any chest pain or shortness of breath. He is feeling somewhat tired today. Vital signs reviewed General: nontoxic, no distress, appears at stated age Cardiovascular: S1S2 reg, no murmur, positive posterior tibial pulse bilateral, Lungs: Decreased breath sounds bilateral, no rhonchi, no rales , no accessory muscle use Abdominal: soft, nontender to palpation, no guarding, no appreciable organome rossana Ext: no gross muscle atrophy, no edema, no contractures Neuro: CN II-XI grossly intact, no focal neuro deficits Psych: Lethargic, oriented, appropriate affect Assessment: Acute exacerbation of diastolic congestive heart failure Acute metabolic encephalopathy with leukocytosis Bilateral heel wounds present on admission End-stage renal disease on Paxil and hemodialysis Chronic troponin elevation Syncopal episode possibly related to hypoxia Resolved: Acute hypoxic respiratory failure Hyponatremia Hypokalemia Hypomagnesemia Chronic: Hypertension, anemia associated with end-stage renal disease, third-degree AV block status post external pacemaker Imaging: Chest x-ray 09/22-mild CHF Video fluoroscopy: Mild delayed swallowing KUB: Similar gaseous distention of large bowel CT brain: Low attenuation in the parietal lobe similar to previous exam suggestive recent ischemia, no acute hemorrhage, generalized degenerative changes greater in the frontal lobe Echocardiogram: Ejection fraction 50% mild borderline increased left ventricular wall thickness CT thoracic spine: Ascending aortic aneurysm 4 cm, dilated Aj pulmonary artery 3.9 cm, simple appearing. Splenic cyst Data Review: Vitals reviewed from today and temperature 98.9, pulse 76, respirations 18, blood pressure 109/53, O2 sat 94% on 2 L Laboratory analysis remarkable for white blood cell count 13.9, platelets 146, sodium 1:30, creatinine of 4.9 Blood culture-no growth at 24 hours Plan: -Case discussed with infectious disease: Continue with cefepime 1 g every 24 hours, Eraxis 100 mg daily, vancomycin -Nephrology note review: Peritoneal dialysis per nephrology recommendations -Oncology note reviewed: Patient's Anagrelide was increased to 1 mg twice daily If an cardiology note reviewed: Patient continues to be high risk for permanent pacemaker implantation. Patient was cleared by infectious disease to undergo permanent pacemaker implantation. DVT prophylaxis: Heparin Discussed with: Nursing Anticipated discharge date: pending clinical course Anticipated discharge place: pending clinical course This dictation was prepared using [employer] voice recognition software. Though every attempt is made to correct errors during during dictation some may still exist. Objective - Vital Signs Vital signs: Vital Signs Temp 98.8 F 09/24/22 15:07 Pulse 103 H 09/24/22 15:07 Resp 18 09/24/22 15:07 BP 101/84 09/24/22 15:07 Pulse Ox 96 09/24/22 15:07 FiO2 Intake & Output 09/23/22 09/24/22 09/24/22 18:59 06:59 18:59 Intake Total 1080 10 10 Balance 1080 10 10 Weight 71.5 kg 71.5 kg Intake: IV 400 10 10 Anidulafungin 100 mg In 100 Sodium Chloride 0.9% 100 ml @ 84 mls/hr IVPB DAILY @1400 [facility] Rx#:[id number] Cefepime 1 gm In Sodium 50 Chloride 0.9% 50 ml @ 12. 5 mls/hr IVPB Q24HR [facility] Rx#:[id number] Invasive Line 3 10 10 Vancomycin 1,250 mg In 250 Sodium Chloride 0.9% 250 ml @ 125 mls/hr IVPB ONCE ONE Rx#:[id number] Intake, IV Titration 200 Amount Magnesium Sulfate-D5w Pmx 200 1 gm In Dextrose/Water 1 100ml.bag @ 100 mls/hr IVPB Q1H [facility] Rx#: [id number] Oral 480 Other: Voiding Method Diaper Diaper Diaper CAPD CAPD CAPD # Voids 1 # Bowel Movements 1 1 - Labs CBC & Chem 7: 09/24/22 07:23 09/24/22 07:23 Labs: Abnormal Lab Results - Last 24 Hours (Table) 09/24/22 09/24/22 Range/Units 07:23 07:23 WBC 13.6 H (3.8-10.6) k/uL RBC 3.31 L (4.30-5.90) m/uL Hgb 10.2 L (13.0-17.5) gm/dL Hct 33.7 L (39.0-53.0) % MCV 101.7 H (80.0-100.0) fL MCHC 30.4 L (31.0-37.0) g/dL RDW 16.6 H (11.5-15.5) % Plt Count 146 L (150-450) k/uL Neutrophils # (Manual) 11.50 H (1.3-7.7) k/uL Lymphocytes # (Manual) 0.54 L (1.0-4.8) k/uL Metamyelocytes # (Man) 0.54 H (0) k/uL Myelocytes # (Manual) 0.41 H (0) k/uL Sodium 130 L (137-145) mmol/L Chloride 92 L (98-107) mmol/L BUN 63 H (9-20) mg/dL Creatinine 4.90 H (0.66-1.25) mg/dL Glucose 131 H (74-99) mg/dL Calcium 10.4 H (8.4-10.2) mg/dL Microbiology - Last 24 Hours (Table) 09/19/22 08:51 Blood Culture - Preliminary Blood 09/22/22 06:11 Blood Culture - Preliminary Blood 09/21/22 00:22 Gram Stain - Preliminary Peritoneal Fluid Body Fluid Culture - Preliminary 09/18/22 12:33 Gram Stain - Preliminary Peritoneal Fluid Body Fluid Culture - Preliminary
[2022-09-24] MEDS: ACETAMINOPHEN TAB 325 MG TAB PO PRN (21:07)
--- NOTE | 2022-09-24 22:04 | P.PN ---
Subjective Progress Note Date: 09/24/22 Principal diagnosis: Leukocytosis Patient is 86-year-old male with multiple comorbidities including heart failure heart block requiring transvenous pacemaker placement also with a history of end-stage renal disease on peritoneal dialysis presenting to the hospital 09/14/2022" apparently the patient had a syncopal episode, patient also noticed to have elevated white count and elevated inflammatory markers On today's evaluation and that is 09/24/2022 the patient had denies having any fever or any chills, the patient is breathing comfortably on 2 L nasal cannula oxygen the patient has been moved out of the ICU patient denies having any chest pain minimal cough no vomiting no abdominal pain and no diarrhea Objective - Vital Signs Vital signs: Vital Signs Temp 98.9 F 09/24/22 11:28 Pulse 76 09/24/22 11:28 Resp 18 09/24/22 11:28 BP 108/53 09/24/22 11:28 Pulse Ox 94 L 09/24/22 11:28 FiO2 Intake & Output 09/23/22 09/24/22 09/24/22 18:59 06:59 18:59 Intake Total 1080 10 10 Balance 1080 10 10 Weight 71.5 kg Intake: IV 400 10 10 Anidulafungin 100 mg In 100 Sodium Chloride 0.9% 100 ml @ 84 mls/hr IVPB DAILY @1400 [facility] Rx#:[id number] Cefepime 1 gm In Sodium 50 Chloride 0.9% 50 ml @ 12. 5 mls/hr IVPB Q24HR [facility] Rx#:[id number] Invasive Line 3 10 10 Vancomycin 1,250 mg In 250 Sodium Chloride 0.9% 250 ml @ 125 mls/hr IVPB ONCE ONE Rx#:[id number] Intake, IV Titration 200 Amount Magnesium Sulfate-D5w Pmx 200 1 gm In Dextrose/Water 1 100ml.bag @ 100 mls/hr IVPB Q1H [facility] Rx#: [id number] Oral 480 Other: Voiding Method Diaper Diaper Diaper CAPD CAPD CAPD # Voids 1 # Bowel Movements 1 1 - Exam GENERAL DESCRIPTION: An elderly male lying in bed in no distress RESPIRATORY SYSTEM: Unlabored breathing , decreased breath sounds at bases HEART: S1 S2 regular rate and rhythm , ABDOMEN: Soft , no tenderness EXTREMITIES: Bilateral heel wounds are currently dressed - Labs CBC & Chem 7: 09/24/22 07:23 09/24/22 07:23 Labs: Abnormal Lab Results - Last 24 Hours (Table) 09/24/22 09/24/22 Range/Units 07:23 07:23 WBC 13.6 H (3.8-10.6) k/uL RBC 3.31 L (4.30-5.90) m/uL Hgb 10.2 L (13.0-17.5) gm/dL Hct 33.7 L (39.0-53.0) % MCV 101.7 H (80.0-100.0) fL MCHC 30.4 L (31.0-37.0) g/dL RDW 16.6 H (11.5-15.5) % Plt Count 146 L (150-450) k/uL Neutrophils # (Manual) 11.50 H (1.3-7.7) k/uL Lymphocytes # (Manual) 0.54 L (1.0-4.8) k/uL Metamyelocytes # (Man) 0.54 H (0) k/uL Myelocytes # (Manual) 0.41 H (0) k/uL Sodium 130 L (137-145) mmol/L Chloride 92 L (98-107) mmol/L BUN 63 H (9-20) mg/dL Creatinine 4.90 H (0.66-1.25) mg/dL Glucose 131 H (74-99) mg/dL Calcium 10.4 H (8.4-10.2) mg/dL Microbiology - Last 24 Hours (Table) 09/19/22 08:51 Blood Culture - Preliminary Blood 09/22/22 06:11 Blood Culture - Preliminary Blood 09/21/22 00:22 Gram Stain - Preliminary Peritoneal Fluid Body Fluid Culture - Preliminary 09/18/22 12:33 Gram Stain - Preliminary Peritoneal Fluid Body Fluid Culture - Preliminary Assessment and Plan (1) Leukocytosis Current Visit: Yes Status: Acute Priority: Medium Code(s): D72.829 - ELEVATED WHITE BLOOD CELL COUNT, UNSPECIFIED SNOMED Code(s): 167510406 (2) Elevated procalcitonin Current Visit: Yes Status: Acute Code(s): R79.89 - OTHER SPECIFIED ABNORMAL FINDINGS OF BLOOD CHEMISTRY SNOMED Code(s): 289954773 Plan: 1patient with elevated white count in this patient presented to hospital with syncopal episode did have hypoxemia requiring supplemental oxygen, also with a cough with a question of possible pneumonia versus SBP as there is no evidence of any cellulitis at his pacemaker site no evidence of any joint swelling abdomen was soft medical examination 2-Patient with bilateral heel unstageable pressure ulcer right greater than left with a necrotic base but no surrounding redness no evidence of any cellulitis local care to continue with a dry protective dressing keep the area of the pressure 3-Patient remains to be afebrile patient white count is down to 13.6 thousand today patient did have multiple blood and peritoneal fluid cultures has been neg ative, patient currently do not have any evidence of cellulitis to the left chest wall, clinically do not see any contraindication for placement of a pacemaker however the patient will be considered to be high risk of infection because of his multiple comorbidity this has been discussed in detail with the CLINICAL BUSINESS MANAGER for cardiology as well as with patient nurse for now continue with the vancomycin and Eraxis and monitor clinical course closely Time with Patient: Less than 30
[2022-09-25] MEDS: DIALYSIS (PERIT 2.5%) 2,500 ML 62.5 G/2,500 ML BAG INTRAPERIT SCH ×4 (00:18→18:37)
[2022-09-25] MEDS: HEPARIN SODIUM,PORCINE/PF 5,000 UNIT/0.5 ML SYRINGE SQ SCH ×4 (00:36→23:15)
[2022-09-25] MEDS: PANTOPRAZOLE 40 MG TABLET PO SCH (05:47)
[2022-09-25] MEDS: MIDODRINE 5 MG TAB PO SCH ×3 (05:52→17:40)
[2022-09-25] MEDS: SODIUM CHLORIDE 0.9% 1,000 ML IV SCH ×2 (06:03→13:11)
[2022-09-25] MEDS: HYDROPHILIC CREAM 180 GM TUBE TOPICAL SCH (06:04)
[2022-09-25] MEDS ORDERED: ceFAZolin 1 GM in SODIUM CHLORIDE 0.9% IRRIG BTL 250 ML IRRIGATION PRN (07:00)
[2022-09-25 09:36] LABS: Calcium 10.5 mg/dL (8.4-10.2); Magnesium 1.9 mg/dL (1.6-2.3)
[2022-09-25] MEDS ORDERED: fentaNYL (PF) 50 MCG/ML 2 ML AMP ONE (10:32)
[2022-09-25] MEDS ORDERED: MIDAZOLAM 2 MG/2 ML VIAL IV ONE (10:42)
[2022-09-25] MEDS ORDERED: fentaNYL (PF) 50 MCG/1 ML VIAL IV ONE (10:42)
[2022-09-25] MEDS ORDERED: LIDOCAINE 1% INJ 10MG/ML (30 ML VIAL-PF) SQ ONE ×2 (10:42)
[2022-09-25] MEDS ORDERED: IV FLUID CONTINUATION 1,000 ML IV ONE (10:57)
--- NOTE | 2022-09-25 12:19 | P.PCN ---
Description of Procedure: CARDIOLOGY PROCEDURE NOTE [employer]: Dr. Bran Best Procedure performed: Insertion dual chamber permanent pacemaker, removal of externalized permanent pacemaker lead Site: Left subclavian Indications: Complete heart block Complications: None Blood Loss: Minimal Description of Procedure: After the risks, benefits, and alternatives of the above-mentioned procedure was explained in detail with the patient, informed consent was obtained. The patient was taken to the cardiac catheterization suite where the left subclavian area was sterily prepped and draped in the usual fashion. One percent lidocaine was used to anesthetize the left subclavian area. Twenty milliliters of Isoview 370 contrast was injected into the left antecubital vein to allow for direct visualization of the left subclavian vein under fluoroscopy. A 1.5 inch incision was made utilizing a #15 blade in the left subclavian site. Hemostasis was made complete. Electrocautery along with digital blunt dissection was utilized to dissect to the level of the pectoralis muscle fascia and create a pocket large enough to accommodate the generator. A thin walled micro puncuture needle was used to cannulate the left subclavian vein. A guide-wire was inserted through the needle into the vascular lumen under fluoroscopic guidance. The needle was removed. Another thin walled micr puncture needle was used to again cannulate the left subclavian vein. A guide-wire was inserted through the needle into the vascular lumen under fluoroscopic guidance. The needle was removed and both guide-wires were attached to the field. A venous sheath and dilator were advanced over the guidewire into the vascular lumen under fluoroscopic guidance. The dilator and guidewire were then removed. A right ventricular bipolar lead was inserted into the sheath and advanced under fluoroscopic guidance into the right ventricle under fluoroscopic guidance. Adequate sensing and pacing thresholds were achieved and the lead was screwed into place in the RV apex. The sheath was then torn away. The lead collar was advanced and anchored into place utilizing #0 silk suture. Next, another venous sheath and dilator were advanced under fluoroscopic guidance into the vascular lumen over the guidewire. After removal of the dilator and guidewire, a right atrial bipolar lead was inserted into this sheath and advanced under fluoroscopic guidance into the right atrium. The lead was positioned into the right atrial appendage. Adequate sensing and pacing thresholds were then achieved with patient being in Aflutter at the time and the lead was screwed into place. The sheath was then torn away. The lead collar was advanced and anchored into place utilizing #0 silk suture. The leads were then inserted into the appropriate position into the generator. They were then secured with the setscrew provided. The leads and generator were inserted into the pocket with the leads posterior. The subcutaneous tissue was approximated utilizing #2.0 and 3.0 vicryl in an interrupted stitch fashion. The dermal layer was approximated utilizing #4.0 vicryl. The area was cleansed with sterile saline and dried. Next the right subclavian externalized pacemaker lead was unscrewed and removed and manual pressure was held. A sterile 4x4 dressing was applied and the patient was transferred to the post catheterization holding area in stable and satisfactory condition. The patient tolerated the procedure well. Generator Data Cement Loader: [place] Brand: [id number] [place] XT DR MRI Model #: [id number] Serial#: [id number] Right Atrial Bipolar Lead Data: Type: Active fixation lead Cement Loader: Medtronic Model#: 5076-45 Serial Number: [id number] Right Ventricular Bipolar Lead Data: Type: Active fixation lead Cement Loader: Medtronic Model #: 5076-52 Serial #: [id number] Stimulation Thresholds: Right atrial bipolar lead pacing and sensing thresholds Voltage: Afib Impedance: 646 ohms P-wave sensin.0 mV Right Ventricular bipolar lead pacing and sensing thresholds Pulse Width: 0.4ms Voltage: 20 volts Impedance: 608 ohms R-wave sensin.5 mV Parameter Setting: Pacing mode is DDDR Lower rate 60 bpm Upper rate 130 bpm Impressions: 1. Successful implantation of a dual chamber permanent pacemaker in the left pectoral site. 2. Removal of right subclavian externalized device. Plan: 1. Routine post procedure care will be instituted as well as outpatient follow- up surveillance.
[2022-09-25] MEDS: DARBEPOETIN ALFA 40 MCG/0.4 ML SYRINGE SQ SCH (13:08)
[2022-09-25] MEDS: hydrALAZINE HCL 25 MG TAB PO SCH ×3 (13:09→21:02)
[2022-09-25] MEDS: ANAGRELIDE 0.5 MG CAP PO SCH ×2 (13:10→21:04)
[2022-09-25] MEDS: ASPIRIN 81 MG PO SCH (13:10)
[2022-09-25] MEDS: lisinopriL 5 MG TAB PO SCH (13:10)
[2022-09-25] MEDS: allopurinoL 100 MG TAB PO SCH (13:10)
[2022-09-25] MEDS: CEFEPIME 1 GM in SODIUM CHLORIDE 0.9% 50 ML IVPB SCH (13:11)
[2022-09-25] MEDS: LIDOCAINE 5% PATCH TOPICAL SCH (13:12)
--- NOTE | 2022-09-25 14:06 | P.PN ---
Subjective Progress Note Date: 09/25/22 Principal diagnosis: Leukocytosis Patient is 86-year-old male with multiple comorbidities including heart failure heart block requiring transvenous pacemaker placement also with a history of end-stage renal disease on peritoneal dialysis presenting to the hospital 09/14/2022" apparently the patient had a syncopal episode, patient also noticed to have elevated white count and elevated inflammatory markers, patient is status post removal of the transvenous spacer and placement of dual-chamber permanent pacemaker on 09/25/2022 On today's evaluation and that is 09/25/2022 the patient remains to be afebrile, the patient is breathing comfortably on room air, the patient denies having any chest pain minimal cough but no sputum production, no vomiting no abdominal pain and no diarrhea has been reported Objective - Vital Signs Vital signs: Vital Signs Temp 97.4 F L 09/25/22 08:00 Pulse 75 09/25/22 08:00 Resp 18 09/25/22 05:44 BP 131/59 09/25/22 08:00 Pulse Ox 98 09/25/22 08:10 FiO2 Intake & Output 09/24/22 09/25/22 09/25/22 18:59 06:59 18:59 Intake Total 700 150 Balance 700 150 Weight 71.5 kg 67.5 kg Intake: IV 110 150 Anidulafungin 100 mg In 100 Sodium Chloride 0.9% 100 ml @ 84 mls/hr IVPB DAILY @1400 [facility] Rx#:[id number] Invasive Line 3 10 Oral 590 Other: Voiding Method Diaper Diaper Diaper CAPD CAPD CAPD # Bowel Movements 1 1 - Exam GENERAL DESCRIPTION: An elderly male lying in bed in no distress RESPIRATORY SYSTEM: Unlabored breathing , decreased breath sounds at bases HEART: S1 S2 regular rate and rhythm , ABDOMEN: Soft , no tenderness EXTREMITIES: Bilateral heel wounds are currently dressed - Labs CBC & Chem 7: 09/24/22 07:23 09/25/22 08:29 Labs: Abnormal Lab Results - Last 24 Hours (Table) 09/25/22 Range/Units 08:29 Sodium 130 L (137-145) mmol/L Chloride 94 L (98-107) mmol/L BUN 62 H (9-20) mg/dL Creatinine 4.77 H (0.66-1.25) mg/dL Glucose 114 H (74-99) mg/dL Calcium 10.5 H (8.4-10.2) mg/dL Microbiology - Last 24 Hours (Table) 09/21/22 00:22 Gram Stain - Final Peritoneal Fluid Body Fluid Culture - Final 09/22/22 06:11 Blood Culture - Preliminary Blood 09/19/22 08:51 Blood Culture - Final Blood 09/18/22 12:33 Gram Stain - Final Peritoneal Fluid Body Fluid Culture - Final Assessment and Plan (1) Leukocytosis Current Visit: Yes Status: Acute Priority: Medium Code(s): D72.829 - ELEVATED WHITE BLOOD CELL COUNT, UNSPECIFIED SNOMED Code(s): 239586811 (2) Elevated procalcitonin Current Visit: Yes Status: Acute Code(s): R79.89 - OTHER SPECIFIED ABNORMAL FINDINGS OF BLOOD CHEMISTRY SNOMED Code(s): 840708530 Plan: 1patient with elevated white count in this patient presented to hospital with syncopal episode did have hypoxemia requiring supplemental oxygen, also with a cough with a question of possible pneumonia versus SBP as there is no evidence of any cellulitis at his pacemaker site no evidence of any joint swelling abdomen was soft medical examination 2-Patient with bilateral heel unstageable pressure ulcer right greater than left with a necrotic base but no surrounding redness no evidence of any cellulitis local care to continue with a dry protective dressing keep the area of the pressure 3-Patient remains to be afebrile patient white count is down to 13.6 thousand as of yesterday, no CBC was done today, patient did get his pacemaker today we will keep the patient on IV vancomycin while inpatient and monitor clinical course closely Time with Patient: Less than 30
--- NOTE | 2022-09-25 14:38 | P.PN ---
Subjective Progress Note Date: 09/25/22 Patient is an 86-year-old male with a history of end-stage renal disease on peritoneal dialysis with intermittent hemodialysis, chronic diastolic heart failure, hypertension, and gout who presented to the emergency department with altered mentation. Of note patient was admitted from 08/17 through 08/26 after a syncopal episode. During that hospital stay he was diagnosed with third degree heart block and had an external generator with plans to follow up with cardiology for permanent pacemaker implantation. He was again admitted for altered mentation and hypoxia from 4:30 through 09/14 and found to be in volume overload. His fluid status was managed by nephrology with dialysis and he was discharged saturating well on room air. He returned to the hospital on 09/14 for a syncopal episode, hypoxia, and confusion. During this hospital stay nephrology was consulted and patient was resumed on peritoneal dialysis. Cardiology was also consulted for placement of permanent pacemaker. He did have an elevated white blood cell count of 22.9. He did develop constipation and KUB demonstrated ileus/fecal stasis. CT head was ordered for worsening confusion which showed low attenuation in the parietal lobe. Similar to previous. He was started on lactulose. On 09/19 infectious disease was consulted for worsening leukocytosis and the patient was switched from cefdinir to cefepime. Blood, urine, and peritoneal cultures were negative. Pro-calcitonin was elevated at 12.6, however this can be elevated and patient with end-stage renal disease. On 09/22 the patient was transferred to the ICU for hypotension with blood pressures in the 70s. He received multiple boluses due to his hypotension. He was started on Minitran and hydralazine and lisinopril were discontinued. He was then started on eraxis by infectious disease. Hematology was consulted for chronic leukocytosis. Case was discussed with Dr. Wheat and patient has a history of leukocytosis his anegeralide was increased. He underwent PPM on 09/25/22 Imaging: Chest x-ray 09/22-mild CHF Video fluoroscopy: Mild delayed swallowing KUB: Similar gaseous distention of large bowel CT brain: Low attenuation in the parietal lobe similar to previous exam suggestive recent ischemia, no acute hemorrhage, generalized degenerative changes greater in the frontal lobe Echocardiogram: Ejection fraction 50% mild borderline increased left ventricular wall thickness CT thoracic spine: Ascending aortic aneurysm 4 cm, dilated Aj pulmonary artery 3.9 cm, simple appearing. Splenic cyst Patient seen and examined at bedside. He denies any pain, shortness breath, nausea, vomiting. He has no complaints at this time. Vital signs reviewed General: nontoxic, no distress, appears at stated age Cardiovascular: S1S2 reg, no murmur Lungs: CTA bilateral, no rhonchi, no rales , no accessory muscle use Abdominal: soft, nontender to palpation, no guarding, no appreciable organomegaly Ext: no gross muscle atrophy, no edema, no contractures -Increase dusky appearance of bilateral toes. Nonpalpable dorsalis pedis and posterior tibial pulses. Faint dopplerable dorsalis pedis pulses bilateral Neuro: CN II-XI grossly intact, no focal neuro deficits Psych: Alert, oriented, appropriate affect Assessment: Acute exacerbation of diastolic congestive heart failure 3rd degree AV block s/p implanted pacer on 09/25/22- had external pacer to this point. Leukocytosis, thrombocytopenia Acute metabolic encephalopathy with leukocytosis Bilateral heel wounds present on admission End-stage renal disease on peritoneal and hemodialysis Chronic troponin elevation Syncopal episode possibly related to hypoxia Resolved: Acute hypoxic respiratory failure Hyponatremia Hypokalemia Hypomagnesemia Chronic: Hypertension, anemia associated with end-stage renal disease, third-degree AV block status Imaging: Data Review: Vitals reviewed and temperature 98.5, pulse 60, respirations 18, blood pressure 116/55, O2 sat 98% on 2 L Basic metabolic profile reviewed and sodium 1:30, chloride 94, BUN 62, creatinine 4.77, glucose 114. Plan: -Infectious disease note reviewed: Continue IV vancomycin while inpatient. -Continue with wound care recommendations, asked them to reevaluate patient -Check TBI -Nephrology note review: Peritoneal dialysis per nephrology recommendations -Oncology note reviewed: Patient's Anagrelide was increased to 1 mg TID -Continue current medications of allopurinol 100 mg daily, hydralazine 75 mg 3 times daily, lisinopril 5 mg daily, Minitran 5 mg 3 times daily, and Protonix 40 mg daily -With permanent pacemaker implantation completed today recommend repeat CBC in a.m. DVT prophylaxis: Heparin Discussed with: Nursing Anticipated discharge date: in 24-[address]: Return to [facility] This dictation was prepared using [employer] voice recognition software. Though every attempt is made to correct errors during during dictation some may still exist. Objective - Vital Signs Vital signs: Vital Signs Temp 98.5 F 09/25/22 14:17 Pulse 60 09/25/22 14:17 Resp 18 09/25/22 14:17 BP 116/55 09/25/22 14:17 Pulse Ox 98 09/25/22 14:17 FiO2 Intake & Output 09/24/22 09/25/22 09/25/22 18:59 06:59 18:59 Intake Total 700 150 Balance 700 150 Weight 71.5 kg 67.5 kg Intake: IV 110 150 Anidulafungin 100 mg In 100 Sodium Chloride 0.9% 100 ml @ 84 mls/hr IVPB DAILY @1400 [facility] Rx#:[id number] Invasive Line 3 10 Oral 590 Other: Voiding Method Diaper Diaper Diaper CAPD CAPD CAPD # Bowel Movements 1 1 - Labs CBC & Chem 7: 09/24/22 07:23 09/25/22 08:29 Labs: Abnormal Lab Results - Last 24 Hours (Table) 09/25/22 Range/Units 08:29 Sodium 130 L (137-145) mmol/L Chloride 94 L (98-107) mmol/L BUN 62 H (9-20) mg/dL Creatinine 4.77 H (0.66-1.25) mg/dL Glucose 114 H (74-99) mg/dL Calcium 10.5 H (8.4-10.2) mg/dL Microbiology - Last 24 Hours (Table) 09/21/22 00:22 Gram Stain - Final Peritoneal Fluid Body Fluid Culture - Final 09/22/22 06:11 Blood Culture - Preliminary Blood 09/19/22 08:51 Blood Culture - Final Blood 09/18/22 12:33 Gram Stain - Final Peritoneal Fluid Body Fluid Culture - Final
--- NOTE | 2022-09-25 15:08 | XR ---
EXAMINATION TYPE: XR chest 1V portable DATE OF EXAM: 09/25/2022 3:00 PM COMPARISON: Chest radiographs from 09/23/2019 TECHNIQUE: XR chest 1V portable Frontal view of the chest. CLINICAL INDICATION:Male, 86 years old with history of Lead placement check; FINDINGS: Lungs/Pleura: Low lung volumes are present. There is no evidence of pleural effusion, focal consolida tion, or pneumothorax. Pulmonary vascularity: Unremarkable. Heart/mediastinum: Cardiomediastinal silhouette is enlarged and stable.Cardiac conduction device with leads in appropriate position now on the left side with 2 leads previously on the right side with on e lead. Atherosclerosis the aorta. Musculoskeletal: No acute osseous pathology. IMPRESSION: Interval replacement of cardiac conduction device now on the left side with 2 leads which are in appr opriate position previously on the right side with one lead.
[2022-09-25] MEDS: ANIDULAFUNGIN 100 MG in SODIUM CHLORIDE 0.9% 100 ML IVPB SCH (17:39)
[2022-09-25] MEDS: ACETAMINOPHEN TAB 325 MG TAB PO PRN ×2 (19:15→23:23)
[2022-09-26] MEDS: DIALYSIS (PERIT 2.5%) 2,500 ML 62.5 G/2,500 ML BAG INTRAPERIT SCH ×5 (00:16→23:45)
[2022-09-26] MEDS: SODIUM CHLORIDE 0.9% 1,000 ML IV SCH ×3 (03:19→23:55)
[2022-09-26] MEDS: MIDODRINE 5 MG TAB PO SCH ×3 (06:04→18:07)
[2022-09-26] MEDS: ACETAMINOPHEN TAB 325 MG TAB PO PRN (06:11)
[2022-09-26] MEDS: PANTOPRAZOLE 40 MG TABLET PO SCH (06:11)
[2022-09-26] MEDS: LIDOCAINE 5% PATCH TOPICAL SCH (08:49)
[2022-09-26] MEDS: CEFEPIME 1 GM in SODIUM CHLORIDE 0.9% 50 ML IVPB SCH (08:49)
[2022-09-26] MEDS: HEPARIN SODIUM,PORCINE/PF 5,000 UNIT/0.5 ML SYRINGE SQ SCH ×3 (08:50→23:44)
[2022-09-26] MEDS: ANAGRELIDE 0.5 MG CAP PO SCH ×3 (08:50→20:52)
[2022-09-26] MEDS: HYDROPHILIC CREAM 180 GM TUBE TOPICAL SCH (08:51)
[2022-09-26] MEDS: hydrALAZINE HCL 25 MG TAB PO SCH ×3 (08:51→23:43)
[2022-09-26] MEDS: allopurinoL 100 MG TAB PO SCH (08:51)
[2022-09-26] MEDS: lisinopriL 5 MG TAB PO SCH (08:51)
[2022-09-26] MEDS: ASPIRIN 81 MG PO SCH (08:51)
[2022-09-26] MEDS ORDERED: HEPARIN SODIUM 1,000 UN/ML (10ML VL) IV PRN ×2 (08:59→09:05)
[2022-09-26] MEDS ORDERED: HEPARIN SODIUM 1,000 UN/ML (10ML VL) IV ONE ×2 (08:59→09:05)
[2022-09-26] MEDS ORDERED: HEPARIN SOD,PORK IN 0.45% NACL 25,000 UNIT in 0.45% NACL 1 250ML.BAG IV SCH ×2 (09:00→09:15)
[2022-09-26 09:22] LABS: Anisocytosis Slight; HCT 34.4 % (39.0-53.0); HGB 10.7 gm/dL (13.0-17.5); Hypochromasia Marked; MCH 31.2 pg (25.0-35.0); MCHC 31.2 g/dL (31.0-37.0); MCV 99.9 fL (80.0-100.0); Macrocytosis Slight; Mean Platelet Volume 12.2; Platelet Count 150 k/uL (150-450); RBC 3.44 m/uL (4.30-5.90); RDW 16.8 % (11.5-15.5)
[2022-09-26 09:36] LABS: Calcium 10.5 mg/dL (8.4-10.2)
[2022-09-26 09:41] LABS: Vancomycin,Random 25.5 ug/mL
[2022-09-26 10:26] LABS: Prothrombin Time 10.5 sec (9.0-12.0)
--- NOTE | 2022-09-26 10:27 | P.CONS ---
History of Present Illness - Reason for Consult Consult date: 09/26/22 wound care - History of Present Illness This is an 86-year-old patient with past medical history significant for heart failure, dialysis, hypertension, prostate disease, and a lifelong nonsmoker. Patient denies diabetes. Patient was seen on September [address] Ordonez who prescribed foam dressing to bilateral heel ulcerations. We are asked to reevaluate due to progressive decline to the ulcerations. Patient has a stage II ulcer to the left lateral calcaneus measuring approximately 1 x 1 x 0.1 cm Slough noted to the wound bed with minimal granulation. The wound edges are attached to the wound base. There is no undermining or tunneling noted to the site. Unable to palpate pedal pulse. Patient has unstageable pressure ulcer to the right calcaneus with eschar In place measuring approximately 2.5 x 2.5 x 0.1 cm. No tunneling or undermining noted. No granulation seen within the wound bed. Distal foot is dusky and cool to touch. Patient has multiple scabbed areas to toes to bilateral feet. Patient is being and evaluated by vascular surgery. Review of system: Unable to obtain, patient is for historian Physical exam: General Appearance: Alert, cooperative, no distress, appears stated age. Skin: See HPI all other Skin color, texture, tugor normal, no rashes or lesions. Neurologic: Alert oriented x3 Assessment: 1. Unstageable pressure ulcer to the right calcaneus 2. Stage II pressure ulcer left calcaneus 3. End-stage renal failure with dialysis Plan: 1.Apply honey gel to kunal. heels, border foam, and wrap with rolled gauze. Change Friday, , and Friday. No aggressive debridement at this time until evaluation by vascular surgery. Patient would benefit from advanced wound care and wound care center. We'll be happy to see him upon discharge. Thank for the consultation any questions please contact the wound care center. DNP note has been reviewed and discussed with Dr. Ordonez and the impression and plan of care has been directed as dictated. Past Medical History Past Medical History: Heart Failure, Dialysis, Hypertension, Prostate Disorder, Renal Disease Additional Past Medical History / Comment(s): CURRENTLY DOING HEMODIALYSIS @ [facility] ([facility] Thrombocytemia/elevated platelets. CKD stage IV. Anemia. BPH. 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 R hand index finger injury/partial amp. Colonoscopy. peritoneal dialysis Past Anesthesia/Blood Transfusion Reactions: No Reported Reaction Type of Cardiac Device: Permanent Pacemaker Device Placement Date:: 09/09/22 Past Psychological History: No Psychological Hx Reported Smoking Status: Never smoker Past Alcohol Use History: Rare Past Drug Use History: None Reported - Past Family History Father Family Medical History: Cancer, Hypertension, Renal Disease Additional Family Medical History / Comment(s): Kidney Cancer Mother Family Medical History: No Reported History Additional Family Medical History / Comment(s): Mother was healthy Medications and Allergies Home Medications Medication Instructions Recorded Confirmed Type Tamsulosin HCl [Flomax] 0.4 mg PO BID 05/24/14 09/14/22 History Anagrelide HCl [Agrylin] 1 mg PO TID 11/08/20 09/14/22 History Vit B Complx C/Folic Acid/Zinc 1 tab PO DAILY 03/19/21 09/14/22 History [Renaplex Tablet] Acetaminophen Tab [Tylenol] 650 mg PO Q4H PRN 08/17/22 09/14/22 History Calcium Carbonate [Tums] 1,000 mg PO TID 08/17/22 09/14/22 History Pantoprazole Sodium [Protonix] 40 mg PO DAILY 08/17/22 09/14/22 History allopurinoL [Zyloprim] 100 mg PO DAILY 08/17/22 09/14/22 History calcitrioL [Calcitriol] 0.25 mcg PO MOTUWETHFR 08/17/22 09/14/22 History hydrALAZINE HCL [Apresoline] 50 mg PO BID 08/17/22 09/14/22 History Darbepoetin Abraham [Aranesp] 40 mcg SQ Q7D #30 each 08/27/22 09/14/22 Rx lisinopriL [Zestril] 5 mg PO DAILY #90 tab 08/27/22 09/14/22 Rx Lidocaine 5% Patch [Lidoderm 5% 1 patch TRANSDERM DAILY 09/14/22 09/14/22 History Patch] Allergies Allergy/AdvReac Type Severity Reaction Status Date / Time No Known Allergies Allergy Verified 09/14/22 20:41 Physical Exam Vitals: Vital Signs Temp Pulse Pulse Resp BP BP Pulse Ox 09/26/22 08:33 98.5 F 66 16 111/47 96 09/26/22 06:00 61 16 121/55 95 09/26/22 05:55 61 16 134/51 99 09/26/22 04:00 60 18 120/68 95 09/26/22 02:00 16 09/26/22 00:23 97.7 F 60 16 98/73 92 L 09/25/22 23:41 97.7 F 68 18 94/55 90 L 09/25/22 20:00 98.3 F 66 18 120/63 90 L 09/25/22 18:41 97.8 F 61 18 143/52 94 L 09/25/22 16:03 98.0 F 60 18 108/34 95 09/25/22 14:17 98.5 F 60 18 116/55 98 09/25/22 14:06 97 09/25/22 14:00 60 09/25/22 13:36 60 137/52 97 09/25/22 13:21 60 122/47 96 09/25/22 13:06 61 127/56 96 09/25/22 12:51 97.0 F L 60 16 133/58 99 Intake and Output 09/25/22 09/26/22 09/26/22 22:59 06:59 14:59 Other: Voiding Method Diaper Diaper CAPD CAPD # Bowel Movements 1 1 Weight 70 kg Results CBC & Chem 7: 09/26/22 09:05 09/26/22 08:21 Labs: Abnormal Lab Results - Last 24 Hours (Table) 09/26/22 09/26/22 Range/Units 08:21 09:05 WBC 16.0 H (3.8-10.6) k/uL RBC 3.44 L (4.30-5.90) m/uL Hgb 10.7 L (13.0-17.5) gm/dL Hct 34.4 L (39.0-53.0) % RDW 16.8 H (11.5-15.5) % Sodium 132 L (137-145) mmol/L Chloride 93 L (98-107) mmol/L BUN 63 H (9-20) mg/dL Creatinine 4.85 H (0.66-1.25) mg/dL Glucose 100 H (74-99) mg/dL Calcium 10.5 H (8.4-10.2) mg/dL Microbiology - Last 24 Hours (Table) 09/21/22 00:22 Gram Stain - Final Peritoneal Fluid Body Fluid Culture - Final 09/22/22 06:11 Blood Culture - Preliminary Blood 09/19/22 08:51 Blood Culture - Final Blood Assessment and Plan (1) Unstageable pressure ulcer of right heel Current Visit: No Status: Acute Code(s): L89.610 - PRESSURE ULCER OF RIGHT HEEL, UNSTAGEABLE SNOMED Code(s): 69656643472573 (2) Stage II pressure ulcer of left heel Current Visit: Yes Status: Acute Code(s): L89.622 - PRESSURE ULCER OF LEFT HEEL, STAGE 2 SNOMED Code(s): 78120703558671 (3) Chronic kidney disease, stage IV (severe) Current Visit: No Status: Acute Code(s): N18.4 - CHRONIC KIDNEY DISEASE, STAGE 4 (SEVERE) SNOMED Code(s): 389013979
--- NOTE | 2022-09-26 11:12 | P.GSCN ---
History of Present Illness Consult date: 09/26/22 Reason for Consult: Ischemic limbs bilaterally Requesting physician: Roselyn Arreguin History of present illness: This is an 86-year-old male with multiple comorbidities who has been hospitalized for approximately 20 days now. Chronic conditions that include end-stage renal disease on peritoneal dialysis, chronic diastolic heart failure, hypertension, gout, dementia, recent third-degree heart block with permanent p acemaker placed yesterday 09/25/2022, and chronic pressure wounds to bilateral heels and coccyx. Patient had initially come in on 09/14/2022 for altered mental status changes. Prior to that he was admitted for 6 through 417 for syncope diagnosed with third degree heart block and had external pacemaker. During this hospitalization it was noted that his feet were cool to the touch, apparently yesterday nursing had reported that his feet looked purple and were cool. Arterial duplex was ordered with no left DP or PT waveforms as well as no right DP waveforms. Patient has dementia and has poor historian. He is able to say that he does have some tenderness in his feet when I am touching. Se nsorimotor is intact. Vascular surgery was consulted for bilateral ischemic extremities. Dr. Arreguin had seen patient this morning and stated that his toes were black. Apparently patient had bilateral lower extremity dressings, on this evaluation feet appear purple and mottled however not black. Patient was started on heparin drip per primary medical team. Review of Systems ROS unobtainable: due to mental status Past Medical History Past Medical History: Heart Failure, Dialysis, Hypertension, Prostate Disorder, Renal Disease Additional Past Medical History / Comment(s): CURRENTLY DOING HEMODIALYSIS @ [facility] ([facility]). Thrombocytemia/elevated platelets. CKD stage IV. Anemia. BPH. 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 R hand index finger injury/partial amp. Colonoscopy. peritoneal dialysis Past Anesthesia/Blood Transfusion Reactions: No Reported Reaction Type of Cardiac Device: Permanent Pacemaker Device Placement Date:: 09/09/22 Past Psychological History: No Psychological Hx Reported Smoking Status: Never smoker Past Alcohol Use History: Rare Past Drug Use History: None Reported - Past Family History Father Family Medical History: Cancer, Hypertension, Renal Disease Additional Family Medical History / Comment(s): Kidney Cancer Mother Family Medical History: No Reported History Additional Family Medical History / Comment(s): Mother was healthy Medications and Allergies Home Medications Medication Instructions Recorded Confirmed Type Tamsulosin HCl [Flomax] 0.4 mg PO BID 05/24/14 09/14/22 History Anagrelide HCl [Agrylin] 1 mg PO TID 11/08/20 09/14/22 History Vit B Complx C/Folic Acid/Zinc 1 tab PO DAILY 03/19/21 09/14/22 History [Renaplex Tablet] Acetaminophen Tab [Tylenol] 650 mg PO Q4H PRN 08/17/22 09/14/22 History Calcium Carbonate [Tums] 1,000 mg PO TID 08/17/22 09/14/22 History Pantoprazole Sodium [Protonix] 40 mg PO DAILY 08/17/22 09/14/22 History allopurinoL [Zyloprim] 100 mg PO DAILY 08/17/22 09/14/22 History calcitrioL [Calcitriol] 0.25 mcg PO MOTUWETHFR 08/17/22 09/14/22 History hydrALAZINE HCL [Apresoline] 50 mg PO BID 08/17/22 09/14/22 History Darbepoetin Abraham [Aranesp] 40 mcg SQ Q7D #30 each 08/27/22 09/14/22 Rx lisinopriL [Zestril] 5 mg PO DAILY #90 tab 08/27/22 09/14/22 Rx Lidocaine 5% Patch [Lidoderm 5% 1 patch TRANSDERM DAILY 09/14/22 09/14/22 History Patch] Allergies Allergy/AdvReac Type Severity Reaction Status Date / Time No Known Allergies Allergy Verified 09/14/22 20:41 Surgical - Exam Vital Signs Temp Pulse Resp BP Pulse Ox 98.0 F 80 16 132/71 91 L 09/14/22 18:52 09/14/22 18:52 09/14/22 18:52 09/14/22 18:52 09/14/22 18:52 General appearance: The patient is alert, appears in no acute distress. HET: Head is normocephalic and atraumatic. Pupils are equal and reactive. Neck: Supple. Trachea midline. Heart: Regular. Lungs: Equal expansion, normal respiratory effort. Abdomen: Soft, nontender, nondistended. Extremities: Palpable bounding bilateral femoral pulses, bilateral popliteal Doppler signal present. Unable to palpate bilateral PT or DP pulses. Not able to obtain bilateral PT or DP signal. Bilateral legs and feet up to the toes warm to touch, toes are cool to touch. Bilateral feet and toes purple, mottled. Left foot second toe distal tip with wound, fourth toe wound to dorsal aspect, no drainage or redness. Right foot third toe wound to dorsal aspect, dry, no drainage or redness. Bilateral heel pressure wounds. Neurological: Patient lethargic, able to follow commands, seems somewhat confused. Results - Labs 09/26/22 09:05 09/26/22 08:21 Abnormal Lab Results - Last 24 Hours (Table) 09/26/22 09/26/22 Range/Units 08:21 09:05 WBC 16.0 H (3.8-10.6) k/uL RBC 3.44 L (4.30-5.90) m/uL Hgb 10.7 L (13.0-17.5) gm/dL Hct 34.4 L (39.0-53.0) % RDW 16.8 H (11.5-15.5) % Sodium 132 L (137-145) mmol/L Chloride 93 L (98-107) mmol/L BUN 63 H (9-20) mg/dL Creatinine 4.85 H (0.66-1.25) mg/dL Glucose 100 H (74-99) mg/dL Calcium 10.5 H (8.4-10.2) mg/dL Microbiology - Last 24 Hours (Table) 09/21/22 00:22 Gram Stain - Final Peritoneal Fluid Body Fluid Culture - Final 09/22/22 06:11 Blood Culture - Preliminary Blood 09/19/22 08:51 Blood Culture - Final Blood Diabetes panel 09/26/22 Range/Units 08:21 Sodium 132 L (137-145) mmol/L Potassium 4.0 (3.5-5.1) mmol/L Chloride 93 L (98-107) mmol/L Carbon Dioxide 26 (22-30) mmol/L BUN 63 H (9-20) mg/dL Creatinine 4.85 H (0.66-1.25) mg/dL Glucose 100 H (74-99) mg/dL Calcium 10.5 H (8.4-10.2) mg/dL Calcium panel 09/26/22 Range/Units 08:21 Calcium 10.5 H (8.4-10.2) mg/dL Pituitary panel 09/26/22 Range/Units 08:21 Sodium 132 L (137-145) mmol/L Potassium 4.0 (3.5-5.1) mmol/L Chloride 93 L (98-107) mmol/L Carbon Dioxide 26 (22-30) mmol/L BUN 63 H (9-20) mg/dL Creatinine 4.85 H (0.66-1.25) mg/dL Glucose 100 H (74-99) mg/dL Calcium 10.5 H (8.4-10.2) mg/dL Adrenal panel 09/26/22 Range/Units 08:21 Sodium 132 L (137-145) mmol/L Potassium 4.0 (3.5-5.1) mmol/L Chloride 93 L (98-107) mmol/L Carbon Dioxide 26 (22-30) mmol/L BUN 63 H (9-20) mg/dL Creatinine 4.85 H (0.66-1.25) mg/dL Glucose 100 H (74-99) mg/dL Calcium 10.5 H (8.4-10.2) mg/dL Assessment and Plan Assessment: 1. Bilateral lower extremity ischemia, likely chronic 2. Bilateral toe wounds 3. Bilateral pressure ulcers to heels 4. Altered mental status changes 5. Third-degree heart block with pacemaker implantation 09/25/2022 6. Leukocytosis 7. Chronic diastolic heart failure 8. Hypertension 9. End-stage renal disease on peritoneal dialysis 10. Dementia Plan: 1. Continue symptomatic and supportive care 2. CTA abdominal aorta with runoff ordered 3. Patient currently on heparin drip 4. Offload pressure to bilateral heels 5. Further recommendations forthcoming from vascular surgeon Thank you for this consultation, we will continue to follow. The impression and plan of care has been dictated as directed. I performed a history and examination of this patient, discussed the same with the dictator. I agree with the dictator's note ,documented as a scribe. Any additional findings or plans will be noted.
[2022-09-26] MEDS ORDERED: CALCITONIN INJ 200 UNIT/ML (MDV) VIAL SQ ONE (11:58)
--- NOTE | 2022-09-26 11:59 | P.PN ---
Subjective Patient is seen in follow-up for end-stage renal disease. He is maintained on peritoneal dialysis. No problems with PD exchanges overnight. On room air. Vital signs are stable. General: No acute distress. HEENT: On nasal cannula. LUNGS: Scattered rhonchi. HEART: Rate and Rhythm are regular. ABDOMEN: Nontender. EXTREMITITES: No edema. Discoloration noted. Objective - Vital Signs Vital signs: Vital Signs Temp 98.5 F 09/26/22 08:33 Pulse 66 09/26/22 08:33 Resp 16 09/26/22 08:33 BP 111/47 09/26/22 08:33 Pulse Ox 96 09/26/22 08:33 FiO2 Intake & Output 09/25/22 09/26/22 09/26/22 18:59 06:59 18:59 Intake Total 200 50 Balance 200 50 Weight 70 kg Intake: IV 200 50 Cefepime 1 gm In Sodium 50 50 Chloride 0.9% 50 ml @ 12. 5 mls/hr IVPB Q24HR [facility] Rx#:[id number] Other: Voiding Method Diaper Diaper Diaper CAPD CAPD CAPD # Bowel Movements 1 1 - Labs CBC & Chem 7: 09/26/22 09:05 09/26/22 08:21 Labs: Abnormal Lab Results - Last 24 Hours (Table) 09/26/22 09/26/22 Range/Units 08:21 09:05 WBC 16.0 H (3.8-10.6) k/uL RBC 3.44 L (4.30-5.90) m/uL Hgb 10.7 L (13.0-17.5) gm/dL Hct 34.4 L (39.0-53.0) % RDW 16.8 H (11.5-15.5) % Sodium 132 L (137-145) mmol/L Chloride 93 L (98-107) mmol/L BUN 63 H (9-20) mg/dL Creatinine 4.85 H (0.66-1.25) mg/dL Glucose 100 H (74-99) mg/dL Calcium 10.5 H (8.4-10.2) mg/dL Microbiology - Last 24 Hours (Table) 09/22/22 06:11 Blood Culture - Preliminary Blood 09/21/22 00:22 Gram Stain - Final Peritoneal Fluid Body Fluid Culture - Final 09/19/22 08:51 Blood Culture - Final Blood Assessment and Plan Plan: Assessment: 1. End-stage renal disease maintained on peritoneal dialysis. 2. Bilateral heel wounds being followed by infectious disease. White count trending down. No evidence of peritonitis. On antibiotics. Hematology also following. 3. Anemia of chronic kidney disease maintained on Aranesp. 4. Chronic kidney disease mineral bone disease. Calcitriol held due to hypercalcemia. 5. Hypokalemia from poor intake and PD losses. Replaced. Improved. 6. Hyponatremia secondary to chronic kidney disease. Hypervolemic. Better. 7. Acute hypoxic respiratory failure. Plan: Maintain current PD exchanges - 2.5 L every 6 hours with 2.5% solution. Maintain 1500 mL fluid restriction. Encouraged oral intake. Tums stopped. Also stopped calcitriol due to hypercalcemia. Hold hydralazine for systolic blood pressure less than 120. Hold midodrine for systolic blood pressure greater than 110. Check further workup for hypercalcemia. IM calcinonin x1 dose today. Add torsemide.
--- NOTE | 2022-09-26 12:10 | P.PN ---
Subjective Progress Note Date: 09/26/22 Principal diagnosis: leukocytosis At today's visit patient is lethargic. He denies pain. S/p pacemaker placement yesterday. Afebrile. White blood cells WBC 16,000, hemoglobin 10.7, platelets 150,000. No other reported complaints at this time Objective - Vital Signs Vital signs: Vital Signs Temp 98.5 F 09/26/22 08:33 Pulse 66 09/26/22 08:33 Resp 16 09/26/22 08:33 BP 111/47 09/26/22 08:33 Pulse Ox 96 09/26/22 08:33 FiO2 Intake & Output 09/25/22 09/26/22 09/26/22 18:59 06:59 18:59 Intake Total 200 50 Balance 200 50 Weight 70 kg Intake: IV 200 50 Cefepime 1 gm In Sodium 50 50 Chloride 0.9% 50 ml @ 12. 5 mls/hr IVPB Q24HR [facility] Rx#:[id number] Other: Voiding Method Diaper Diaper Diaper CAPD CAPD CAPD # Bowel Movements 1 1 - Constitutional General appearance: Present: average body habitus, no acute distress - EENT Eyes: Present: anicteric sclerae, EOMI ENT: Present: hearing grossly normal - Respiratory Details: breathing is even and unlabored - Cardiovascular Details: skin is warm and dry - Integumentary Integumentary: Absent: cyanotic - Neurologic Neurologic Comment(s): Lethargic, generalized weakness - Musculoskeletal Musculoskeletal: Present: generalized weakness - Psychiatric Psychiatric Comment(s): A&O x 1 - Labs CBC & Chem 7: 09/26/22 09:05 09/26/22 08:21 Labs: Abnormal Lab Results - Last 24 Hours (Table) 09/26/22 09/26/22 Range/Units 08:21 09:05 WBC 16.0 H (3.8-10.6) k/uL RBC 3.44 L (4.30-5.90) m/uL Hgb 10.7 L (13.0-17.5) gm/dL Hct 34.4 L (39.0-53.0) % RDW 16.8 H (11.5-15.5) % Sodium 132 L (137-145) mmol/L Chloride 93 L (98-107) mmol/L BUN 63 H (9-20) mg/dL Creatinine 4.85 H (0.66-1.25) mg/dL Glucose 100 H (74-99) mg/dL Calcium 10.5 H (8.4-10.2) mg/dL Microbiology - Last 24 Hours (Table) 09/22/22 06:11 Blood Culture - Preliminary Blood 09/21/22 00:22 Gram Stain - Final Peritoneal Fluid Body Fluid Culture - Final 09/19/22 08:51 Blood Culture - Final Blood Assessment and Plan (1) Leukocytosis Current Visit: Yes Status: Acute Priority: Medium Code(s): D72.829 - ELEVATED WHITE BLOOD CELL COUNT, UNSPECIFIED SNOMED Code(s): 668023924 Plan: Leukocytosis/Thrombocythemia: -Hx of thrombocythemia since 2000. He has been on anagrelide 1mg BID since, with good control of platelet counts. -WBCs have ranged [id number] throughout this admission. After trending labs patient is normally in the 8000 range. -Today hemoglobin 10.7, WBC improved since admission, 16 today, platelets 150,000.-Luekocytosis likely r/t to underlying MPN superimposed by infectious/inflammatory process and suspect WBCs to decrease as pt recovers from acute condition -Anagrelide changed to BID from TID, and 81mg aspirin daily added -Will continue to monitor counts
--- NOTE | 2022-09-26 12:33 | P.PN ---
Subjective Progress Note Date: 09/26/22 HISTORY OF PRESENT ILLNESS: This is an 86-year-old male was admitted to the hospital secondary to altered mental status and hypoxia. Patient examined this morning at the bedside. Chito roa denies chest pain or pressure. He denies shortness of breath. He continues to be on peritoneal dialysis. He continues to have right-sided external pacemaker and is awaiting permanent pacemaker implantation. Vital signs are stable. 09/26/2022 Patient examined this morning at the bedside. Patient is resting comfortably in bed. Patient is status post [employer] dual-chamber pacemaker implantation yesterday with Dr. Best. Post procedure chest x-ray reveals interval replacement of cardiac conduction device now on the left side with 2 leads which are in the appropriate position. No pneumothorax noted. Patient denies chest pain or pressure. He denies shortness of breath. He has been initiated this morning on IV heparin per primary medicine secondary to worsening color and cir cular lesion of right lower extremity. PHYSICAL EXAM: VITAL SIGNS: Reviewed. GENERAL: Well-developed in no acute distress. NECK: Supple. No JVD or thyromegaly LUNGS: Respirations even and unlabored. Lungs essentially clear to auscultation bilaterally. HEART: Regular rate and rhythm. S1 and S2 heard. Systolic murmur noted. EXTREMITIES: Normal range of motion. No clubbing or cyanosis. Peripheral pulses intact. 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 Patient started on IV heparin per primary medicine. Further recommendations pending patient's course Nurse practitioner note has been reviewed by physician. Signing provider agrees with the documented findings, assessment, and plan of care. Objective - Vital Signs Vital signs: Vital Signs Temp 98.5 F 09/26/22 08:33 Pulse 66 09/26/22 08:33 Resp 16 09/26/22 08:33 BP 111/47 09/26/22 08:33 Pulse Ox 96 09/26/22 08:33 FiO2 Intake & Output 09/25/22 09/26/22 09/26/22 18:59 06:59 18:59 Intake Total 200 50 Balance 200 50 Weight 70 kg Intake: IV 200 50 Cefepime 1 gm In Sodium 50 50 Chloride 0.9% 50 ml @ 12. 5 mls/hr IVPB Q24HR [facility] Rx#:[id number] Other: Voiding Method Diaper Diaper Diaper CAPD CAPD CAPD # Bowel Movements 1 1 - Labs CBC & Chem 7: 09/26/22 09:05 09/26/22 08:21 Labs: Abnormal Lab Results - Last 24 Hours (Table) 09/26/22 09/26/22 Range/Units 08:21 09:05 WBC 16.0 H (3.8-10.6) k/uL RBC 3.44 L (4.30-5.90) m/uL Hgb 10.7 L (13.0-17.5) gm/dL Hct 34.4 L (39.0-53.0) % RDW 16.8 H (11.5-15.5) % Sodium 132 L (137-145) mmol/L Chloride 93 L (98-107) mmol/L BUN 63 H (9-20) mg/dL Creatinine 4.85 H (0.66-1.25) mg/dL Glucose 100 H (74-99) mg/dL Calcium 10.5 H (8.4-10.2) mg/dL Microbiology - Last 24 Hours (Table) 09/22/22 06:11 Blood Culture - Preliminary Blood 09/21/22 00:22 Gram Stain - Final Peritoneal Fluid Body Fluid Culture - Final 09/19/22 08:51 Blood Culture - Final Blood
[2022-09-26] MEDS: FUROSEMIDE 80 MG TAB PO SCH (12:41)
[2022-09-26] MEDS: ANIDULAFUNGIN 100 MG in SODIUM CHLORIDE 0.9% 100 ML IVPB SCH (13:05)
--- NOTE | 2022-09-26 13:42 | P.PN ---
Subjective Progress Note Date: 09/26/22 Principal diagnosis: Hypotension, secondary to hypovolemia. I was asked to transfer this patient yesterday to the ICU because of hypotension. His systolic blood pressure was as low as the 70s and for that reason the patient got transferred to the ICU. He is an 86-year-old male patient who was recently discharged from the hospital. He was in a hospital last month with a complete heart block and the patient received a temporary external pacemaker. He is known having complete heart block along with chronic diastolic heart failure and end-stage renal disease on peritoneal dialysis. He also has advanced dementia. The patient was hospitalized on 09/15/2022 due to concerns of confusion and hypoxemia. He was being managed on the medical floor. He was seen by various consultants including cardiology and nephrology. Initially was thought to be in some mild fluid overload and the patient was given CAPD exchanges with 4.25% solution alternating with 2.5% solution to help increase his ultrafiltration. He was also found to be in a manic and he was given Aranesp . Infectious disease was also involved in his care as the patient had an elevated white count. He remained afebrile. His breathing is comfortable and patient is currently on room air oxygen. No nausea or vomiting or abdominal pain. No diarrhea. After arriving to the ICU, the patient was given fluid boluses. The patient was given 1.5 L in addition to midodrine and his current blood pressure is 113/90. His cardiac rhythm is paced. Pulse ox is 94% on room air oxygen. Blood work from today is showing a white cell count of 19 with a hemoglobin of 10.3 and a platelet count of 183. Sodium is at 128, potassium is at 3.5, BUN is at 65 with a creatinine of 5.3. Peritoneal fluid was checked and it was negative for any infection. The body fluid from the peritoneal is also negative for culture. Blood culture is negative thus far. The patient is currently on IV cefepime per IDs recommendation. He is also taking Eraxis. Chest x-ray was done on 09/20/2022 shows some cardiomegaly without any acute abnormalities. His most recent echocardiogram from 08/19/2022 showed a left posterior ejection fraction 45-50% along with moderate to severe mitral regurgitation. His swallow evaluation done on 09/19/2022 was showing some mild delayed swallow with residual no penetration or aspiration. Reevaluated today on 09/23/2022, patient remains in the ICU, hemodynamically stable, not requiring any pressors. When patient was transferred to the ICU back on 09/21 he had a brief course of norepinephrine for hypotension. This has resolved, patient has been off norepinephrine for the last 24 hours. Remains empirically on cefepime and vancomycin, he has external temporary pacemaker in place, patient is supposed to be transferred out of the ICU to a monitor bed on . Pulmonary-guevara is doing well, on 2 L nasal cannula, not in any distress. Still undergoing peritoneal dialysis. And being followed by nephrology. Patient is being considered for permanent pacemaker implantation, however the decision is not finally made by cardiology regarding whether he has to have permanent pacemaker placement. WBC count today 17.9, improving hemoglobin is 9.9 about the same electrolytes showed low sodium of 127 low potassium of 3.0 BUN is 63 creatinine 5.09. C-reactive protein is 18.2. Chest x-ray showed mild congestive heart failure changes Reevaluated today on , patient is now on cardiac floor, I saw him yesterday when he was in the ICU. Patient is doing well, he is hemodynamically stable, not in any distress, sodium is better today up to 130, his renal functioning remains poor the BUN of 63 creatinine 4.90 patient is on hemodialysis. Bicarb is 26. WBC count is 13.6 hemoglobin is 10.2. Patient remains on 2 L nasal cannula with O2 sats of 94% patient is being considered for permanent pacemaker implantation, he was already cleared by infectious disease on the case. Blood cultures and peritoneal cultures have been negative all along. Empirically the patient is on Eraxis, is also on cefepime. Patient is also on vancomycin. Peritoneal fluid from his peritoneal catheter has been negative so far Patient was reevaluated today on 09/26/2022, patient seems to be stable from the pulmonary perspective. He is on room air, not in distress, but he seems to be quite confused. Patient underwent permanent pacemaker implantation yesterday, without any complications. Pulmonary-guevara he denies any shortness of breath, no cough, no wheezing, patient was seen by vascular surgery for ischemic changes noted in bilateral lower extremities, recommending heparin drip, and recommending CTA abdomen aorta with runoff has been ordered. In the meantime the patient was placed on heparin by vascular surgery. Labs today showed WBC count of 16.0 hemoglobin is 10.7. Abnormal renal profile with a BUN of 63 creatinine 4.85, patient is on peritoneal dialysis. Patient is being followed by many consultants at this point, including cardiology vascular surgery, and nephrology. And infectious disease as well as hematology/oncology. Objective - Vital Signs Vital signs: Vital Signs Temp 98.5 F 09/26/22 08:33 Pulse 66 09/26/22 08:33 Resp 16 09/26/22 08:33 BP 111/47 09/26/22 08:33 Pulse Ox 96 09/26/22 08:33 FiO2 Intake & Output 09/25/22 09/26/22 09/26/22 18:59 06:59 18:59 Intake Total 200 50 Balance 200 50 Weight 70 kg Intake: IV 200 50 Cefepime 1 gm In Sodium 50 50 Chloride 0.9% 50 ml @ 12. 5 mls/hr IVPB Q24HR [facility] Rx#:[id number] Other: Voiding Method Diaper Diaper Diaper CAPD CAPD CAPD # Bowel Movements 1 1 - Exam Physical Exam revealed 86-year-old white male in no distress. Patient is confused. Head: Atraumatic, normocephalic. HEENT:[Neck is supple.] [No neck masses.] [No thyromegaly.] [No JVD.]Right subclavian temporary pacemaker is noted. Chest: Symmetrical chest expansion minimal fine crackles at the bases no rhonchi and no wheezes Cardiac Exam: [Normal S1 and S2, no S3 gallop,2/6 systolic murmur thought the precordium. Abdomen: [Soft, nontender, no megaly, no rebound, no guarding, normal bowel sounds.] Peritoneal dialysis catheter is noted Extremities:Palpable bounding bilateral femoral pulses, bilateral popliteal Doppler signal present. Diminished distal pulses bilaterally. Bilateral feet and toes purple, mottled. Left foot second toe distal tip with wound, fourth toe wound to dorsal aspect, no drainage or redness. Right foot third toe wound to dorsal aspect, dry, no drainage or redness. Bilateral heel pressure wounds Neurological Exam: Confused, not oriented to place time or person. Psychiatric: Normal mood, affect but definitely more confused today compared to the last few days - Labs CBC & Chem 7: 09/26/22 09:05 09/26/22 08:21 Labs: Abnormal Lab Results - Last 24 Hours (Table) 09/26/22 09/26/22 Range/Units 08:21 09:05 WBC 16.0 H (3.8-10.6) k/uL RBC 3.44 L (4.30-5.90) m/uL Hgb 10.7 L (13.0-17.5) gm/dL Hct 34.4 L (39.0-53.0) % RDW 16.8 H (11.5-15.5) % Sodium 132 L (137-145) mmol/L Chloride 93 L (98-107) mmol/L BUN 63 H (9-20) mg/dL Creatinine 4.85 H (0.66-1.25) mg/dL Glucose 100 H (74-99) mg/dL Calcium 10.5 H (8.4-10.2) mg/dL Microbiology - Last 24 Hours (Table) 09/22/22 06:11 Blood Culture - Preliminary Blood 09/21/22 00:22 Gram Stain - Final Peritoneal Fluid Body Fluid Culture - Final 09/19/22 08:51 Blood Culture - Final Blood Assessment and Plan Assessment: Impression: Hypotension most likely related to abnormal fluid balance, likely hypovolemic in nature History of complete heart block , status post permanent pacemaker implantation on 09/25/2022 Moderate severe mitral regurgitation End-stage renal disease, on peritoneal dialysis. Worsening dementia and impaired cognitive function Anemia of chronic disease Electrolytes imbalance secondary to his renal failure and peritoneal dialysis Stage II coccygeal ulcer Acute on chronic bilateral lower extremities ischemia with bilateral to once and bilateral pressure ulcers to heels/ being addressed by vascular surgery on the case. In the meantime patient is on heparin and CT of the abdominal aorta/runoff is pending Recommendation: Continue heparin Continue peritoneal dialysis Continue midodrine for low blood pressure Continue antibiotics empirically as per infectious disease on the case, cultures have been negative so far including blood cultures, urine cultures, peritoneal fluid cultures, decisions regarding antibiotics to be made by infectious disease. Patient had swallow evaluation, passed his swallow evaluation Permanent pacemaker implant presentation was done by cardiology on 09/26 We will continue to follow Time with Patient: Less than 30
--- NOTE | 2022-09-26 13:45 | CT ---
EXAMINATION TYPE: CT angio abd aorta w/Runoff DATE OF EXAM: 09/26/2022 COMPARISON: None INDICATION: Ischemic toes. DLP: 2374.1 mGycm, Automated exposure control for dose reduction was used. CONTRAST: 80ml mL of Isovue 370. Study performed TECHNIQUE: Axial images were obtained from above the diaphragm to the pubic rami in the axial plane a t 5 mm thick sections. Reconstructed images are reviewed on the computer in the coronal plane. Best possible examination was performed. There is limitation due to patient cooperation. FINDINGS: Aorta and runoff: Vascular calcifications within the aorta. Celiac axis and superior mesenteric arter y have normal takeoff. Vascular calcifications at the origins of bilateral renal arteries. No aneurys mal dilatation is evident. No dissection is identified. Aortic bifurcation appears normal. Common dionne ac arteries internal and external iliac arteries are patent. Common femoral arteries are patent. Runoff: There may be some focal stenosis of the proximal profunda femoris on the left. Series [address] 244. Some proximal left superficial femoral artery narrowing is noted. Focal areas of distal super ficial femoral artery narrowing are noted bilaterally. There is narrowing of the proximal left poplit eal artery, series 501 image 362. Focal narrowing of the right upper popliteal artery is present. Ser ies 501 image 376. Distal right popliteal artery narrowing is noted at the level of the tibial metaph ysis. Origin of the right posterior tibial artery is appears to have severe stenosis. Medial and anterior t ibial arteries are patent. Vascular calcifications within the trifurcation vessels. Anterior tibial a rtery appears to be occluded in the distal calf region. Posterior tibial artery has a short area of o cclusion which may reconstituted from collateral flow. Peroneal artery appears to be patent the level of the ankle. Ankle level is limited due to nondiagnostic due to motion artifact. Posterior tibial and peroneal artery on the left are patent to the level of the ankle. Anterior tibia l artery is occluded within the distal calf. Vascular calcification is present within trifurcation ve ssels. There is stenosis near the origins of the trifurcation vessels. Limited CT sections are obtained the lung bases. Some compressive atelectasis likely is within the l eft lung base. Minimal effusion may be present at the left base.. CT ABDOMEN: Ascites is present. This may be related to patient's anterior abdominal dialysis catheter . Liver: Normal Spleen: Normal Pancreas: Normal Adrenal glands: The adrenal glands are normal. Gallbladder: Normal Kidneys: No masses are evident. No hydronephrosis is present. Multiple cysts are present on the kunal ateral kidneys. Largest on the right measures 5.3 cm. There is a nonobstructing 0.3 cm calcification superior pole left kidney. Aorta: Vascular calcification is within the aorta. See runoff discussion Inferior vena cava: Normal. CT PELVIS: Intraperitoneal dialysis catheter is present. Loops of bowel within the abdomen and pelvis are normal. Diverticulosis without acute diverticuli tis is present. Appendix: Not identified. No dilated tubular structure or inflammatory changes identified. Urinary bladder: Decompressed with limited evaluation. Genitourinary structures: Prostate contains calcification. Osseous structures: No suspicious lytic or sclerotic lesions. Facet degenerative changes are within t he lumbar spine. IMPRESSIONS: 1. There is limitation on the lower extremity runoff due to patient cooperation and artifact. 2. Noticed made of bilateral focal areas of stenosis within the proximal superficial femoral arteries , and within the proximal popliteal arteries. 3. Severe stenoses within the origins of the right lower extremity trifurcation vessels with reconsti tution through collateral flow. Posterior tibial artery on the right is occluded above the ankle. Ant erior tibial artery on the left is occluded above the ankle. 4. Ascites versus peritoneal dialysis fluid.
--- NOTE | 2022-09-26 14:43 | P.PN ---
Subjective Progress Note Date: 09/26/22 Principal diagnosis: Leukocytosis Patient is 86-year-old male with multiple comorbidities including heart failure heart block requiring transvenous pacemaker placement also with a history of end-stage renal disease on peritoneal dialysis presenting to the hospital 09/14/2022" apparently the patient had a syncopal episode, patient also noticed to have elevated white count and elevated inflammatory markers, patient is status post removal of the transvenous spacer and placement of dual-chamber permanent pacemaker on 09/25/2022 On today's evaluation and that is 09/26/2022 the patient continues to be afebrile, the patient is breathing comfortably on room air currently satting 96%, the patient denies having any chest pain minimal cough but no sputum production, no vomiting no abdominal pain and no diarrhea has been reported Objective - Vital Signs Vital signs: Vital Signs Temp 98.5 F 09/26/22 08:33 Pulse 66 09/26/22 08:33 Resp 16 09/26/22 08:33 BP 111/47 09/26/22 08:33 Pulse Ox 96 09/26/22 08:33 FiO2 Intake & Output 09/25/22 09/26/22 09/26/22 18:59 06:59 18:59 Intake Total 200 50 Balance 200 50 Weight 70 kg Intake: IV 200 50 Cefepime 1 gm In Sodium 50 50 Chloride 0.9% 50 ml @ 12. 5 mls/hr IVPB Q24HR [facility] Rx#:[id number] Other: Voiding Method Diaper Diaper Diaper CAPD CAPD CAPD # Bowel Movements 1 1 - Exam GENERAL DESCRIPTION: An elderly male lying in bed in no distress RESPIRATORY SYSTEM: Unlabored breathing , decreased breath sounds at bases HEART: S1 S2 regular rate and rhythm , ABDOMEN: Soft , no tenderness EXTREMITIES: Bilateral heel wounds are currently dressed - Labs CBC & Chem 7: 09/26/22 09:05 09/26/22 08:21 Labs: Abnormal Lab Results - Last 24 Hours (Table) 09/26/22 09/26/22 Range/Units 08:21 09:05 WBC 16.0 H (3.8-10.6) k/uL RBC 3.44 L (4.30-5.90) m/uL Hgb 10.7 L (13.0-17.5) gm/dL Hct 34.4 L (39.0-53.0) % RDW 16.8 H (11.5-15.5) % Sodium 132 L (137-145) mmol/L Chloride 93 L (98-107) mmol/L BUN 63 H (9-20) mg/dL Creatinine 4.85 H (0.66-1.25) mg/dL Glucose 100 H (74-99) mg/dL Calcium 10.5 H (8.4-10.2) mg/dL Microbiology - Last 24 Hours (Table) 09/22/22 06:11 Blood Culture - Preliminary Blood 09/21/22 00:22 Gram Stain - Final Peritoneal Fluid Body Fluid Culture - Final 09/19/22 08:51 Blood Culture - Final Blood Assessment and Plan (1) Leukocytosis Current Visit: Yes Status: Acute Priority: Medium Code(s): D72.829 - ELEVATED WHITE BLOOD CELL COUNT, UNSPECIFIED SNOMED Code(s): 599852520 (2) Elevated procalcitonin Current Visit: Yes Status: Acute Code(s): R79.89 - OTHER SPECIFIED ABNORMAL FINDINGS OF BLOOD CHEMISTRY SNOMED Code(s): 611562055 Plan: 1patient with elevated white count in this patient presented to hospital with syncopal episode did have hypoxemia requiring supplemental oxygen, also with a cough with a question of possible pneumonia versus SBP as there is no evidence of any cellulitis at his pacemaker site no evidence of any joint swelling abdomen was soft medical examination 2-Patient with bilateral heel unstageable pressure ulcer right greater than left with a necrotic base but no surrounding redness no evidence of any cellulitis local care to continue with a dry protective dressing keep the area of the pressure 3-Patient remains to be afebrile patient white count is slightly elevated at 16,000 today, patient is status post pacemaker placement, we will continue the patient on IV vancomycin while inpatient and monitor clinical course closely Time with Patient: Less than 30
--- NOTE | 2022-09-26 18:36 | P.PN ---
Subjective Progress Note Date: 09/26/22 (delayed charting seen at 0915) Patient is an 86-year-old male with a history of end-stage renal disease on peritoneal dialysis with intermittent hemodialysis, chronic diastolic heart fail ure, hypertension, and gout who presented to the emergency department with altered mentation. Of note patient was admitted from 08/17 through 08/26 after a syncopal episode. During that hospital stay he was diagnosed with third degree heart block and had an external generator with plans to follow up with cardiology for permanent pacemaker implantation. He was again admitted for altered mentation and hypoxia from 4:30 through 09/14 and found to be in volume overload. His fluid status was managed by nephrology with dialysis and he was discharged saturating well on room air. He returned to the hospital on 09/14 for a syncopal episode, hypoxia, and confusion. During this hospital stay nephrology was consulted and patient was resumed on peritoneal dialysis. Cardiology was also consulted for placement of permanent pacemaker. He did have an elevated white blood cell count of 22.9. He did deve lop constipation and KUB demonstrated ileus/fecal stasis. CT head was ordered for worsening confusion which showed low attenuation in the parietal lobe. Similar to previous. He was started on lactulose. On 09/19 infectious disease was consulted for worsening leukocytosis and the patient was switched from cefdinir to cefepime. Blood, urine, and peritoneal cultures were negative. Pro-calcitonin was elevated at 12.6, however this can be elevated and patient with end-stage renal disease. On 09/22 the patient was transferred to the ICU for hypotension with blood pressures in the 70s. He received multiple boluses due to his hypotension. He was started on Minitran and hydralazine and lisinop ril were discontinued. He was then started on eraxis by infectious disease. Hematology was consulted for chronic leukocytosis. Case was discussed with Dr. Wheat and patient has a history of leukocytosis his anegeralide was increased. He underwent PPM on 09/25/22. On the morning of 09/25 he was noted to have a dusky appearance in his bilateral feet. SUZIE was obtained which was unable to detect adequate flow bilaterally. Imaging: Chest x-ray 09/22-mild CHF Video fluoroscopy: Mild delayed swallowing KUB: Similar gaseous distention of large bowel CT brain: Low attenuation in the parietal lobe similar to previous exam suggestive recent ischemia, no acute hemorrhage, generalized degenerative meade ges greater in the frontal lobe Echocardiogram: Ejection fraction 50% mild borderline increased left ventricular wall thickness CT thoracic spine: Ascending aortic aneurysm 4 cm, dilated Aj pulmonary artery 3.9 cm, simple appearing. Splenic cyst Patient seen and examined at bedside. He denies any pain in his lower extremities, chest pain, nausea, vomiting. He is feeling well overall the CC is a hard time eating in bed on his own. updated later in the day regarding his lower extremity ischemia, results of the CTA, and needed discussed with vascular surgery. We discussed risks and benefits of proceeding with any intervention such as his end-stage renal disease, his recent third-degree heart block requiring pacemaker implantation, and his worsening dementia. We discussed that every time patient undergoes anesthesia risk potentiation of worsening of her memory impairment. We also discussed that with poor vascular flow to be difficult for his wounds to heal in this seems to be taken into consideration, but that she will need to discuss options with vascular surgery. Vital signs reviewed General: nontoxic, no distress, appears at stated age Cardiovascular: S1S2 reg, no murmur Lungs: CTA bilateral, no rhonchi, no rales , no accessory muscle use Abdominal: soft, nontender to palpation, no guarding, no appreciable organomegaly Ext: no gross muscle atrophy, no edema, no contractures -Increase dusky appearance of bilateral toes. Nonpalpable dorsalis pedis and posterior tibial pulses. Faint dopplerable dorsalis pedis pulses bilateral Neuro: CN II-XI grossly intact, no focal neuro deficits Psych: Alert, oriented, appropriate affect Assessment: Acute exacerbation of diastolic congestive heart failure 3rd degree AV block s/p implanted pacer on 09/25/22- had external pacer to this point. Leukocytosis, thrombocytopenia Acute metabolic encephalopathy with leukocytosis Bilateral heel wounds present on admission End-stage renal disease on peritoneal Dialysis Chronic troponin elevation Syncopal episode possibly related to hypoxia Resolved: Acute hypoxic respiratory failure Hyponatremia Hypokalemia Hypomagnesemia Chronic: Hypertension, anemia associated with end-stage renal disease, third-degree AV block status Imaging: CTA with runoff-limited lower extremity runoff, bilateral focal areas of stenosis in the proximal superficial artery and within the proximal popliteal arteries, severe stenosis within the origins of the right lower extremity trifurcation vessels with reconstitution through collateral flow, posterior tibial artery on the right is occluded above the ankle, anterior to where artery on the left is occluded but the ankle, ascites vs peritoneal dialysis fluid Data Review: Vital signs reviewed in pulse 60, respirations 18, blood pressure 120/68, O2 sat 95% on room air. Blood work reviewed in white blood cell count 16, hemoglobin 10.7, platelets 150, sodium 132, BUN 63, creatinine 4.4. Plan: -Infectious disease note reviewed: Continue IV vancomycin while inpatient. -Continue with wound care recommendations, asked them to reevaluate patient -Heparin drip started. Monitor with ptt and CBC. -Case discussed with Néstor Colin of vascular surgery. CTA with runoff was ordered and reviewed. Surgeon will discuss with tomorrow. They agree with continuing heparin drip. -Nephrology note review: Peritoneal dialysis per nephrology recommendations -Oncology note reviewed: Patient's Anagrelide was increased to 1 mg TID -Continue current medications of allopurinol 100 mg daily, hydralazine 75 mg 3 times daily, lisinopril 5 mg daily, Midodrin 5 mg 3 times daily, and Protonix 40 mg daily DVT prophylaxis: Heparin Discussed with: Nursing Anticipated discharge date: in 24-[address]: Return to [facility] This dictation was prepared using [employer] voice recognition software. Though every attempt is made to correct errors during during dictation some may still exist. Objective - Vital Signs Vital signs: Vital Signs Temp 97.7 F 09/26/22 15:55 Pulse 60 09/26/22 15:55 Resp 17 09/26/22 15:55 BP 158/70 09/26/22 15:55 Pulse Ox 94 L 09/26/22 15:55 FiO2 Intake & Output 09/25/22 09/26/22 09/26/22 18:59 06:59 18:59 Intake Total 200 198 Balance 200 198 Weight 70 kg Intake: IV 200 50 Cefepime 1 gm In Sodium 50 50 Chloride 0.9% 50 ml @ 12. 5 mls/hr IVPB Q24HR [facility] Rx#:[id number] Oral 148 Other: Voiding Method Diaper Diaper Diaper CAPD CAPD CAPD # Bowel Movements 1 1 1 - Labs CBC & Chem 7: 09/26/22 09:05 09/26/22 08:21 Labs: Abnormal Lab Results - Last 24 Hours (Table) 09/26/22 09/26/2209/26/23 Range/Units 08:21 09:05 15:56 WBC 16.0 H (3.8-10.6) k/uL RBC 3.44 L (4.30-5.90) m/uL Hgb 10.7 L (13.0-17.5) gm/dL Hct 34.4 L (39.0-53.0) % RDW 16.8 H (11.5-15.5) % APTT 56.5 H (22.0-30.0) sec Sodium 132 L (137-145) mmol/L Chloride 93 L (98-107) mmol/L BUN 63 H (9-20) mg/dL Creatinine 4.85 H (0.66-1.25) mg/dL Glucose 100 H (74-99) mg/dL Calcium 10.5 H (8.4-10.2) mg/dL Microbiology - Last 24 Hours (Table) 09/22/22 06:11 Blood Culture - Preliminary Blood
--- NOTE | 2022-09-27 01:33 | XR ---
EXAM: XR Chest, 1 View CLINICAL HISTORY: ITS.REASON XR Reason: Aspiration? TECHNIQUE: Frontal view of the chest. COMPARISON: No relevant prior studies available. FINDINGS: Lungs: Slight left basilar opacity. Pleural space: No acute findings Heart: cardiomegaly. Bones/joints: No acute findings. Slight left basilar opacity.
[2022-09-27 01:59] LABS: Anisocytosis Slight; HGB 10.2 gm/dL (13.0-17.5); Hypochromasia Marked; MCHC 31.1 g/dL (31.0-37.0); MCV 99.7 fL (80.0-100.0); Macrocytosis Slight; Mean Platelet Volume 12.3; Platelet Count 150 k/uL (150-450); RBC 3.31 m/uL (4.30-5.90); RDW 16.7 % (11.5-15.5)
[2022-09-27 02:27] LABS: Band Neutrophils % 10 %; Metamyelocytes % 4 %; Monocytes # (M) 0.23 k/uL (0-1.0); Neutrophils % (M) 84 %; Nucleated Red Blood Cells 1 /100 WBC (0-0); Total Cells Counted 200
[2022-09-27 02:28] LABS: Anisocytosis (M) Present; Lymphocytes # (M) 0.45 k/uL (1.0-4.8); Metamyelocytes # (M) 0.91 k/uL (0); Polychromasia Present; Target Cells Present; WBC 22.7 k/uL (3.8-10.6)
[2022-09-27] MEDS: PANTOPRAZOLE 40 MG TABLET PO SCH (05:59)
[2022-09-27] MEDS: DIALYSIS (PERIT 2.5%) 2,500 ML 62.5 G/2,500 ML BAG INTRAPERIT SCH ×2 (05:59→12:55)
[2022-09-27] MEDS: MIDODRINE 5 MG TAB PO SCH ×3 (05:59→16:37)
[2022-09-27 08:37] LABS: Protein, Total 4.5 g/dL (6.2-8.2)
[2022-09-27 08:45] LABS: Free Lambda Lt Chain Qnt, Seru 9.46 mg/dL (0.57-2.63)
[2022-09-27 08:46] LABS: Free Kappa Lt Chain Qnt, Serum 8.85 mg/dL (0.33-1.94)
[2022-09-27 09:26] LABS: Anisocytosis Slight; HCT 33.1 % (39.0-53.0); HGB 10.3 gm/dL (13.0-17.5); Hypochromasia Marked; MCH 30.8 pg (25.0-35.0); MCV 99.3 fL (80.0-100.0); Macrocytosis Slight; Mean Platelet Volume 12.2; Platelet Count 155 k/uL (150-450); RBC 3.33 m/uL (4.30-5.90); WBC 24.4 k/uL (3.8-10.6)
[2022-09-27 09:45] LABS: Albumin 2.3 g/dL (3.5-5.0); Calcium 9.9 mg/dL (8.4-10.2); Potassium 3.5 mmol/L (3.5-5.1); Total Bilirubin 0.4 mg/dL (0.2-1.3); Total Protein 4.8 g/dL (6.3-8.2)
[2022-09-27 09:48] LABS: Vancomycin,Random 23.1 ug/mL
[2022-09-27 09:58] LABS: C Reactive Protein 18.2 mg/dL (<1.0)
[2022-09-27] MEDS: FUROSEMIDE 80 MG TAB PO SCH (10:10)
[2022-09-27] MEDS: ASPIRIN 81 MG PO SCH (10:10)
[2022-09-27] MEDS: allopurinoL 100 MG TAB PO SCH (10:10)
[2022-09-27] MEDS: hydrALAZINE HCL 25 MG TAB PO SCH ×2 (10:11→15:44)
[2022-09-27] MEDS: CEFEPIME 1 GM in SODIUM CHLORIDE 0.9% 50 ML IVPB SCH (10:11)
[2022-09-27] MEDS: HEPARIN SODIUM,PORCINE/PF 5,000 UNIT/0.5 ML SYRINGE SQ SCH ×2 (10:11→15:36)
[2022-09-27] MEDS: lisinopriL 5 MG TAB PO SCH (10:11)
[2022-09-27] MEDS: HYDROPHILIC CREAM 180 GM TUBE TOPICAL SCH (10:12)
[2022-09-27] MEDS: LIDOCAINE 5% PATCH TOPICAL SCH (10:12)
[2022-09-27] MEDS: ONDANSETRON 4 MG/2 ML VIAL IVP PRN (10:17)
[2022-09-27] MEDS: SODIUM CHLORIDE 0.9% 1,000 ML IV SCH (10:17)
--- NOTE | 2022-09-27 10:53 | P.PN ---
Subjective Progress Note Date: 09/27/22 Principal diagnosis: Bilateral lower extremity ischemia Patient was seen and examined today as a follow-up. Patient's family including was at the bedside. Dr. Nicole present to evaluate patient and speak with family. Patient's overall prognosis continues to decline. Patient is very lethargic, not communicating much, and unable to follow directions. Patient had a very low-grade fever of 99.6 this morning. Patient lying in bed on his side with his knees, bilateral soft offloading boots are in place. No reported acute changes through the night. Objective - Vital Signs Vital signs: Vital Signs Temp 99.6 F 09/27/22 04:00 Pulse 60 09/27/22 06:44 Resp 16 09/27/22 06:44 BP 124/53 09/27/22 06:44 Pulse Ox 94 L 09/27/22 08:11 FiO2 21 09/27/22 08:11 Intake & Output 09/26/22 09/27/22 09/27/22 18:59 06:59 18:59 Intake Total 198 Balance 198 Weight 63 kg Intake: IV 50 Cefepime 1 gm In Sodium 50 Chloride 0.9% 50 ml @ 12. 5 mls/hr IVPB Q24HR [facility] Rx#:[id number] Oral 148 Other: Voiding Method Diaper Diaper CAPD CAPD # Bowel Movements 1 1 - Exam General appearance: The patient appears cachectic, lethargic and not very responsive. HET: Head is normocephalic and atraumatic. Neck: Supple. Extremities: Bilateral palpable femoral and popliteal pulses. Legs warm to the touch to mid dorsal aspect of foot. Distal aspect of foot and toes cool to the touch with purple mottled discoloring. Nonpalpable PT and DP pulses. Good capillary refill. Toe wounds with dry gangrene. Neurological: Overall non-verbal, lethargic, not following commands or answering questions. - Labs CBC & Chem 7: 09/27/22 08:55 09/27/22 08:55 Labs: Abnormal Lab Results - Last 24 Hours (Table) 09/26/22 09/26/22 09/26/22 Range/Units 15:56 15:56 15:56 WBC (3.8-10.6) k/uL RBC (4.30-5.90) m/uL Hgb (13.0-17.5) gm/dL Hct (39.0-53.0) % RDW (11.5-15.5) % Neutrophils # (Manual) (1.3-7.7) k/uL Lymphocytes # (Manual) (1.0-4.8) k/uL Metamyelocytes # (Man) (0) k/uL Nucleated RBCs (0-0) /100 WBC APTT 56.5 H (22.0-30.0) sec Sodium (137-145) mmol/L Chloride (98-107) mmol/L BUN (9-20) mg/dL Creatinine (0.66-1.25) mg/dL Glucose (74-99) mg/dL Alkaline Phosphatase (38-126) U/L C-Reactive Protein (<1.0) mg/dL Total Protein (6.3-8.2) g/dL Total Protein (PEP) 4.5 L (6.2-8.2) g/dL Albumin (3.5-5.0) g/dL Vitamin D 25-Hydroxy 18.9 L (30.0-100.0) ng/mL Free [place] LC, Quant 8.85 H (0.33-1.94) mg/dL Free Lambda LC, Quant 9.46 H (0.57-2.63) mg/dL 09/27/22 09/27/22 09/27/22 Range/Units 01:05 08:55 08:55 WBC 22.7 H 24.4 H (3.8-10.6) k/uL RBC 3.31 L 3.33 L (4.30-5.90) m/uL Hgb 10.2 L 10.3 L (13.0-17.5) gm/dL Hct 33.0 L 33.1 L (39.0-53.0) % RDW 16.7 H 17.0 H (11.5-15.5) % Neutrophils # (Manual) 21.30 H (1.3-7.7) k/uL Lymphocytes # (Manual) 0.45 L (1.0-4.8) k/uL Metamyelocytes # (Man) 0.91 H (0) k/uL Nucleated RBCs 1 H (0-0) /100 WBC APTT (22.0-30.0) sec Sodium 134 L (137-145) mmol/L Chloride 96 L (98-107) mmol/L BUN 62 H (9-20) mg/dL Creatinine 5.29 H (0.66-1.25) mg/dL Glucose 135 H (74-99) mg/dL Alkaline Phosphatase 415 H (38-126) U/L C-Reactive Protein 18.2 H (<1.0) mg/dL Total Protein 4.8 L (6.3-8.2) g/dL Total Protein (PEP) (6.2-8.2) g/dL Albumin 2.3 L (3.5-5.0) g/dL Vitamin D 25-Hydroxy (30.0-100.0) ng/mL Free [place] LC, Quant (0.33-1.94) mg/dL Free Lambda LC, Quant (0.57-2.63) mg/dL 09/27/22 Range/Units 08:55 WBC (3.8-10.6) k/uL RBC (4.30-5.90) m/uL Hgb (13.0-17.5) gm/dL Hct (39.0-53.0) % RDW (11.5-15.5) % Neutrophils # (Manual) (1.3-7.7) k/uL Lymphocytes # (Manual) (1.0-4.8) k/uL Metamyelocytes # (Man) (0) k/uL Nucleated RBCs (0-0) /100 WBC APTT 37.3 H (22.0-30.0) sec Sodium (137-145) mmol/L Chloride (98-107) mmol/L BUN (9-20) mg/dL Creatinine (0.66-1.25) mg/dL Glucose (74-99) mg/dL Alkaline Phosphatase (38-126) U/L C-Reactive Protein (<1.0) mg/dL Total Protein (6.3-8.2) g/dL Total Protein (PEP) (6.2-8.2) g/dL Albumin (3.5-5.0) g/dL Vitamin D 25-Hydroxy (30.0-100.0) ng/mL Free [place] LC, Quant (0.33-1.94) mg/dL Free [place]ambda LC, Quant (0.57-2.63) mg/dL Microbiology - Last 24 Hours (Table) 09/22/22 06:11 Blood Culture - Preliminary Blood Assessment and Plan Assessment: 1. Bilateral lower extremity ischemia, likely chronic with right posterior t ibial artery occlusion above the ankle and anterior tibial artery on left occlusion. 2. Bilateral toe wounds 3. Bilateral pressure ulcers to heels 4. Altered mental status changes 5. Third-degree heart block with pacemaker implantation 09/25/2022 6. Leukocytosis 7. Chronic diastolic heart failure 8. Hypertension 9. End-stage renal disease on peritoneal dialysis 10. Dementia Plan: 1. Continue symptomatic and supportive care 2. CTA abdominal aorta with runoff reviewed by Dr. Nicole 3. Discontinue heparin drip 4. Offload pressure to bilateral heels Dr. Nicole had discussion with the family at the bedside regarding findings of CT angiogram with right posterior tibial occlusion and left anterior tibial occlusion, with noted dry gangrene toe wounds. Patient is poor surgical candidate and likely would not survive surgical intervention. At this time vascular surgery does not recommend any surgical intervention. Continue supportive treatment. It was discussed with the family that his toes may continue to discolor. Also discussed with family the need to discuss end-of-life care and decisions versus aggressive treatment and surgical intervention. No plans at this time for any vascular surgical intervention. We will sign off at this time. Thank you for this consultation. The impression and plan of care has been dictated as directed. Dr. Nicole I performed a history and examination of this patient, discussed the same with the dictator. I agree with the dictator's note ,documented as a scribe. Any additional findings or plans will be noted.
[2022-09-27] MEDS ORDERED: LORazepam 2 MG/ML INJ IV PRN (11:17)
[2022-09-27 11:41] LABS: Albumin 1.76 g/dL (3.80-4.90); Gamma Globulin 0.46 g/dL (0.70-1.50)
[2022-09-27] MEDS ORDERED: POTASSIUM CHLORIDE ER 20 MEQ TAB.ER PO STA (11:42)
--- NOTE | 2022-09-27 11:42 | P.PN ---
Subjective Patient is seen in follow-up for end-stage renal disease. He is maintained on peritoneal dialysis. No problems with PD exchanges overnight. On room air. Resting in bed. Family present at bedside. Vital signs are stable. General: No acute distress. HEENT: On nasal cannula. LUNGS: Scattered rhonchi. HEART: Rate and Rhythm are regular. ABDOMEN: Nontender. EXTREMITITES: No edema. Discoloration noted. Objective - Vital Signs Vital signs: Vital Signs Temp 97.6 F 09/27/22 08:00 Pulse 67 09/27/22 08:00 Resp 18 09/27/22 08:00 BP 122/48 09/27/22 08:00 Pulse Ox 94 L 09/27/22 08:11 FiO2 21 09/27/22 08:11 Intake & Output 09/26/22 09/27/22 09/27/22 18:59 06:59 18:59 Intake Total 198 Balance 198 Weight 63 kg Intake: IV 50 Cefepime 1 gm In Sodium 50 Chloride 0.9% 50 ml @ 12. 5 mls/hr IVPB Q24HR [facility] Rx#:[id number] Oral 148 Other: Voiding Method Diaper Diaper CAPD CAPD # Bowel Movements 1 1 - Labs CBC & Chem 7: 09/27/22 08:55 09/27/22 08:55 Labs: Abnormal Lab Results - Last 24 Hours (Table) 09/26/22 09/26/22 09/26/22 Range/Units 15:56 15:56 15:56 WBC (3.8-10.6) k/uL RBC (4.30-5.90) m/uL Hgb (13.0-17.5) gm/dL Hct (39.0-53.0) % RDW (11.5-15.5) % Neutrophils # (Manual) (1.3-7.7) k/uL Lymphocytes # (Manual) (1.0-4.8) k/uL Metamyelocytes # (Man) (0) k/uL Nucleated RBCs (0-0) /100 WBC APTT 56.5 H (22.0-30.0) sec Sodium (137-145) mmol/L Chloride (98-107) mmol/L BUN (9-20) mg/dL Creatinine (0.66-1.25) mg/dL Glucose (74-99) mg/dL Alkaline Phosphatase (38-126) U/L C-Reactive Protein (<1.0) mg/dL Total Protein (6.3-8.2) g/dL Total Protein (PEP) 4.5 L (6.2-8.2) g/dL Albumin (3.5-5.0) g/dL Vitamin D 25-Hydroxy 18.9 L (30.0-100.0) ng/mL Free [place] LC, Quant 8.85 H (0.33-1.94) mg/dL Free [place] LC, Quant 9.46 H (0.57-2.63) mg/dL 09/27/22 09/27/22 09/27/22 Range/Units 01:05 08:55 08:55 WBC 22.7 H 24.4 H (3.8-10.6) k/uL RBC 3.31 L 3.33 L (4.30-5.90) m/uL Hgb 10.2 L 10.3 L (13.0-17.5) gm/dL Hct 33.0 L 33.1 L (39.0-53.0) % RDW 16.7 H 17.0 H (11.5-15.5) % Neutrophils # (Manual) 21.30 H (1.3-7.7) k/uL Lymphocytes # (Manual) 0.45 L (1.0-4.8) k/uL Metamyelocytes # (Man) 0.91 H (0) k/uL Nucleated RBCs 1 H (0-0) /100 WBC APTT (22.0-30.0) sec Sodium 134 L (137-145) mmol/L Chloride 96 L (98-107) mmol/L BUN 62 H (9-20) mg/dL Creatinine 5.29 H (0.66-1.25) mg/dL Glucose 135 H (74-99) mg/dL Alkaline Phosphatase 415 H (38-126) U/L C-Reactive Protein 18.2 H (<1.0) mg/dL Total Protein 4.8 L (6.3-8.2) g/dL Total Protein (PEP) (6.2-8.2) g/dL Albumin 2.3 L (3.5-5.0) g/dL Vitamin D 25-Hydroxy (30.0-100.0) ng/mL Free [place] LC, Quant (0.33-1.94) mg/dL Free [place] LC, Quant (0.57-2.63) mg/dL 09/27/22 Range/Units 08:55 WBC (3.8-10.6) k/uL RBC (4.30-5.90) m/uL Hgb (13.0-17.5) gm/dL Hct (39.0-53.0) % RDW (11.5-15.5) % Neutrophils # (Manual) (1.3-7.7) k/uL Lymphocytes # (Manual) (1.0-4.8) k/uL Metamyelocytes # (Man) (0) k/uL Nucleated RBCs (0-0) /100 WBC APTT 37.3 H (22.0-30.0) sec Sodium (137-145) mmol/L Chloride (98-107) mmol/L BUN (9-20) mg/dL Creatinine (0.66-1.25) mg/dL Glucose (74-99) mg/dL Alkaline Phosphatase (38-126) U/L C-Reactive Protein (<1.0) mg/dL Total Protein (6.3-8.2) g/dL Total Protein (PEP) (6.2-8.2) g/dL Albumin (3.5-5.0) g/dL Vitamin D 25-Hydroxy (30.0-100.0) ng/mL Free [place] LC, Quant (0.33-1.94) mg/dL Free [place] LC, Quant (0.57-2.63) mg/dL Microbiology - Last 24 Hours (Table) 09/22/22 06:11 Blood Culture - Preliminary Blood Assessment and Plan Plan: Assessment: 1. End-stage renal disease maintained on peritoneal dialysis. 2. Bilateral heel wounds being followed by infectious disease. No evidence of peritonitis. On antibiotics. Hematology and vascular surgery also following. Noted to have right posterior tibial occlusion and left anterior tibial occlusion. Patient is not a surgical candidate per vascular surgery. 3. Anemia of chronic kidney disease maintained on Aranesp. 4. Chronic kidney disease mineral bone disease. Calcitriol held due to hypercalcemia. Calcium level better. 18.9. 5. Hypokalemia from poor intake and PD losses. 6. Hyponatremia secondary to chronic kidney disease. Hypervolemic. Better. 7. Acute hypoxic respiratory failure. Plan: Maintain current PD exchanges - 2.5 L every 6 hours with 2.5% solution. Maintain 1500 mL fluid restriction. Encouraged oral intake. Tums stopped. Also stopped calcitriol due to hypercalcemia. Hold hydralazine for systolic blood pressure less than 120. Hold midodrine for systolic blood pressure greater than 110. Follow-up workup for hypercalcemia. IM calcinonin x1 dose given 09/26/2022. Maintain torsemide. Prognosis guarded. Discussed with family.
[2022-09-27] MEDS: MORPHINE SULFATE 2 MG/ML SYRINGE IVP PRN ×2 (11:49→17:10)
[2022-09-27 12:52] LABS: Angiotensin-1 Converting Enz. 4 U/L (8-52)
[2022-09-27 13:01] LABS: Band Neutrophils % 6 %; Lymphocytes # (M) 1.71 k/uL (1.0-4.8); Metamyelocytes # (M) 0.49 k/uL (0); Metamyelocytes % 2 %; Monocytes # (M) 1.46 k/uL (0-1.0); Myelocytes # (M) 0.49 k/uL (0); Myelocytes % 2 %; Neutrophils % (M) 78 %; Nucleated Red Blood Cells 0 /100 WBC (0-0); Target Cells Present; Total Cells Counted 200
[2022-09-27] MEDS: POTASSIUM CHLORIDE 10 MEQ in WATER FOR INJECTION 1 100ML.BAG IVPB SCH ×3 (14:26→17:03)
[2022-09-27] MEDS: ANIDULAFUNGIN 100 MG in SODIUM CHLORIDE 0.9% 100 ML IVPB SCH (14:53)
--- NOTE | 2022-09-27 15:24 | P.PN ---
Subjective Progress Note Date: 09/27/22 Principal diagnosis: Leukocytosis Patient is 86-year-old male with multiple comorbidities including heart failure heart block requiring transvenous pacemaker placement also with a history of end-stage renal disease on peritoneal dialysis presenting to the hospital 09/14/2022" apparently the patient had a syncopal episode, patient also noticed to have elevated white count and elevated inflammatory markers, patient is status post removal of the transvenous spacer and placement of dual-chamber permanent pacemaker on 09/25/2022 On today's evaluation and that is 09/27/2022 the patient remains to be afebrile, the patient is breathing comfortably on room air patient is slightly sleepy lethargic today and did not answer any question and no vomiting diarrhea or any other changes reported by the nursing staff Objective - Vital Signs Vital signs: Vital Signs Temp 97.9 F 09/27/22 11:48 Pulse 73 09/27/22 11:48 Resp 18 09/27/22 11:48 BP 130/63 09/27/22 11:48 Pulse Ox 97 09/27/22 11:48 FiO2 21 09/27/22 08:11 Intake & Output 09/26/22 09/27/22 09/27/22 18:59 06:59 18:59 Intake Total 198 Balance 198 Weight 63 kg Intake: IV 50 Cefepime 1 gm In Sodium 50 Chloride 0.9% 50 ml @ 12. 5 mls/hr IVPB Q24HR [facility] Rx#:[id number] Oral 148 Other: Voiding Method Diaper Diaper CAPD CAPD # Bowel Movements 1 1 - Exam GENERAL DESCRIPTION: An elderly male lying in bed in no distress RESPIRATORY SYSTEM: Unlabored breathing , decreased breath sounds at bases HEART: S1 S2 regular rate and rhythm , ABDOMEN: Soft , no tenderness EXTREMITIES: Bilateral heel wounds are currently dressed - Labs CBC & Chem 7: 09/27/22 08:55 09/27/22 08:55 Labs: Abnormal Lab Results - Last 24 Hours (Table) 09/26/22 09/26/22 09/26/22 Range/Units 15:56 15:56 15:56 WBC (3.8-10.6) k/uL RBC (4.30-5.90) m/uL Hgb (13.0-17.5) gm/dL Hct (39.0-53.0) % RDW (11.5-15.5) % Neutrophils # (Manual) (1.3-7.7) k/uL Lymphocytes # (Manual) (1.0-4.8) k/uL Metamyelocytes # (Man) (0) k/uL Nucleated RBCs (0-0) /100 WBC APTT 56.5 H (22.0-30.0) sec Sodium (137-145) mmol/L Chloride (98-107) mmol/L BUN (9-20) mg/dL Creatinine (0.66-1.25) mg/dL Glucose (74-99) mg/dL Alkaline Phosphatase (38-126) U/L C-Reactive Protein (<1.0) mg/dL Total Protein (6.3-8.2) g/dL Total Protein (PEP) 4.5 L (6.2-8.2) g/dL Albumin (3.5-5.0) g/dL Albumin (PEP) 1.76 L (3.80-4.90) g/dL Oecgg-3-Nleepzexy 0.61 H (0.10-0.40) g/dL Zyxxm-8-Gdefrqvdk 1.21 H (0.60-1.00) g/dL Beta Globulins 0.45 L (0.60-1.30) g/dL Gamma Globulins 0.46 L (0.70-1.50) g/dL Vitamin D 25-Hydroxy 18.9 L (30.0-100.0) ng/mL Free [place] LC, Quant 8.85 H (0.33-1.94) mg/dL Free Lambda LC, Quant 9.46 H (0.57-2.63) mg/dL 09/27/22 09/27/22 09/27/22 Range/Units 01:05 08:55 08:55 WBC 22.7 H 24.4 H (3.8-10.6) k/uL RBC 3.31 L 3.33 L (4.30-5.90) m/uL Hgb 10.2 L 10.3 L (13.0-17.5) gm/dL Hct 33.0 L 33.1 L (39.0-53.0) % RDW 16.7 H 17.0 H (11.5-15.5) % Neutrophils # (Manual) 21.30 H (1.3-7.7) k/uL Lymphocytes # (Manual) 0.45 L (1.0-4.8) k/uL Metamyelocytes # (Man) 0.91 H (0) k/uL Nucleated RBCs 1 H (0-0) /100 WBC APTT (22.0-30.0) sec Sodium 134 L (137-145) mmol/L Chloride 96 L (98-107) mmol/L BUN 62 H (9-20) mg/dL Creatinine 5.29 H (0.66-1.25) mg/dL Glucose 135 H (74-99) mg/dL Alkaline Phosphatase 415 H (38-126) U/L C-Reactive Protein 18.2 H (<1.0) mg/dL Total Protein 4.8 L (6.3-8.2) g/dL Total Protein (PEP) (6.2-8.2) g/dL Albumin 2.3 L (3.5-5.0) g/dL Albumin (PEP) (3.80-4.90) g/dL Tleci-3-Qmcsitegy (0.10-0.40) g/dL Uwkzo-6-Xhmtibdsa (0.60-1.00) g/dL Beta Globulins (0.60-1.30) g/dL Gamma Globulins (0.70-1.50) g/dL Vitamin D 25-Hydroxy (30.0-100.0) ng/mL Free [place] LC, Quant (0.33-1.94) mg/dL Free Lambda LC, Quant (0.57-2.63) mg/dL 09/27/22 Range/Units 08:55 WBC (3.8-10.6) k/uL RBC (4.30-5.90) m/uL Hgb (13.0-17.5) gm/dL Hct (39.0-53.0) % RDW (11.5-15.5) % Neutrophils # (Manual) (1.3-7.7) k/uL Lymphocytes # (Manual) (1.0-4.8) k/uL Metamyelocytes # (Man) (0) k/uL Nucleated RBCs (0-0) /100 WBC APTT 37.3 H (22.0-30.0) sec Sodium (137-145) mmol/L Chloride (98-107) mmol/L BUN (9-20) mg/dL Creatinine (0.66-1.25) mg/dL Glucose (74-99) mg/dL Alkaline Phosphatase (38-126) U/L C-Reactive Protein (<1.0) mg/dL Total Protein (6.3-8.2) g/dL Total Protein (PEP) (6.2-8.2) g/dL Albumin (3.5-5.0) g/dL Albumin (PEP) (3.80-4.90) g/dL Bjhts-2-Ksjvouayk (0.10-0.40) g/dL Kcuqi-6-Sfjmginqq (0.60-1.00) g/dL Beta Globulins (0.60-1.30) g/dL Gamma Globulins (0.70-1.50) g/dL Vitamin D 25-Hydroxy (30.0-100.0) ng/mL Free [place] LC, Quant (0.33-1.94) mg/dL Free Lambda LC, Quant (0.57-2.63) mg/dL Microbiology - Last 24 Hours (Table) 09/22/22 06:11 Blood Culture - Preliminary Blood Assessment and Plan (1) Leukocytosis Current Visit: Yes Status: Acute Priority: Medium Code(s): D72.829 - ELEVATED WHITE BLOOD CELL COUNT, UNSPECIFIED SNOMED Code(s): 412876281 (2) Elevated procalcitonin Current Visit: Yes Status: Acute Code(s): R79.89 - OTHER SPECIFIED ABNORMAL FINDINGS OF BLOOD CHEMISTRY SNOMED Code(s): 541826017 Plan: 1patient with elevated white count in this patient presented to hospital with syncopal episode did have hypoxemia requiring supplemental oxygen, also with a cough with a question of possible pneumonia versus SBP as there is no evidence of any cellulitis at his pacemaker site no evidence of any joint swelling abdomen was soft medical examination 2-Patient with bilateral heel unstageable pressure ulcer right greater than left with a necrotic base but no surrounding redness no evidence of any cellulitis local care to continue with a dry protective dressing keep the area of the pressure 3-Patient remains to be afebrile however patient white count is up to 24,000 today, patient is broadly covered with IV vancomycin, cefepime and Eraxis, with possible plan for hospice we will hold on any further workup at this point and monitor his clinical course closely Time with Patient: Less than 30
--- NOTE | 2022-09-27 15:35 | P.PN ---
Subjective Progress Note Date: 09/27/22 Principal diagnosis: leukocytosis At today's visit patient is increasingly confused and is obtunded. Remains afebrile. White blood cells WBC 24.4, hemoglobin 10.2, platelets 155,000. Due to worsening condition and poor prognosis patient's and son state they have decided for hospice care. Hospice has been consulted by internal medicine. Objective - Vital Signs Vital signs: Vital Signs Temp 97.9 F 09/27/22 11:48 Pulse 73 09/27/22 11:48 Resp 18 09/27/22 11:48 BP 130/63 09/27/22 11:48 Pulse Ox 97 09/27/22 11:48 FiO2 21 09/27/22 08:11 Intake & Output 09/26/22 09/27/22 09/27/22 18:59 06:59 18:59 Intake Total 198 Balance 198 Weight 63 kg Intake: IV 50 Cefepime 1 gm In Sodium 50 Chloride 0.9% 50 ml @ 12. 5 mls/hr IVPB Q24HR [facility] Rx#:[id number] Oral 148 Other: Voiding Method Diaper Diaper CAPD CAPD # Voids 1 # Bowel Movements 1 1 2 - Constitutional General appearance: Present: average body habitus, no acute distress - EENT Eyes: Present: anicteric sclerae, EOMI ENT: Present: hearing grossly normal - Respiratory Details: breathing is even and unlabored - Cardiovascular Details: skin warm and dry - Neurologic Neurologic Comment(s): confused, obtunded - Musculoskeletal Musculoskeletal: Present: generalized weakness - Labs CBC & Chem 7: 09/27/22 08:55 09/27/22 08:55 Labs: Abnormal Lab Results - Last 24 Hours (Table) 09/26/22 09/26/22 09/26/22 Range/Units 15:56 15:56 15:56 WBC (3.8-10.6) k/uL RBC (4.30-5.90) m/uL Hgb (13.0-17.5) gm/dL Hct (39.0-53.0) % RDW (11.5-15.5) % Neutrophils # (Manual) (1.3-7.7) k/uL Lymphocytes # (Manual) (1.0-4.8) k/uL Monocytes # (Manual) (0-1.0) k/uL Metamyelocytes # (Man) (0) k/uL Myelocytes # (Manual) (0) k/uL Nucleated RBCs (0-0) /100 WBC APTT 56.5 H (22.0-30.0) sec Sodium (137-145) mmol/L Chloride (98-107) mmol/L BUN (9-20) mg/dL Creatinine (0.66-1.25) mg/dL Glucose (74-99) mg/dL Alkaline Phosphatase (38-126) U/L C-Reactive Protein (<1.0) mg/dL Total Protein (6.3-8.2) g/dL Total Protein (PEP) (6.2-8.2) g/dL Albumin (3.5-5.0) g/dL Albumin (PEP) (3.80-4.90) g/dL Kdowq-8-Bwyfzedrp (0.10-0.40) g/dL Ltvxg-6-Ydrzxcosw (0.60-1.00) g/dL Beta Globulins (0.60-1.30) g/dL Gamma Globulins (0.70-1.50) g/dL Angiotensin Convert Enz 4 L (8-52) U/L Vitamin D 25-Hydroxy 18.9 L (30.0-100.0) ng/mL Free [place] LC, Quant (0.33-1.94) mg/dL Free Lambda LC, Quant (0.57-2.63) mg/dL 09/26/22 09/27/22 09/27/22 Range/Units 15:56 01:05 08:55 WBC 22.7 H (3.8-10.6) k/uL RBC 3.31 L (4.30-5.90) m/uL Hgb 10.2 L (13.0-17.5) gm/dL Hct 33.0 L (39.0-53.0) % RDW 16.7 H (11.5-15.5) % Neutrophils # (Manual) 21.30 H (1.3-7.7) k/uL Lymphocytes # (Manual) 0.45 L (1.0-4.8) k/uL Monocytes # (Manual) (0-1.0) k/uL Metamyelocytes # (Man) 0.91 H (0) k/uL Myelocytes # (Manual) (0) k/uL Nucleated RBCs 1 H (0-0) /100 WBC APTT (22.0-30.0) sec Sodium 134 L (137-145) mmol/L Chloride 96 L (98-107) mmol/L BUN 62 H (9-20) mg/dL Creatinine 5.29 H (0.66-1.25) mg/dL Glucose 135 H (74-99) mg/dL Alkaline Phosphatase 415 H (38-126) U/L C-Reactive Protein 18.2 H (<1.0) mg/dL Total Protein 4.8 L (6.3-8.2) g/dL Total Protein (PEP) 4.5 L (6.2-8.2) g/dL Albumin 2.3 L (3.5-5.0) g/dL Albumin (PEP) 1.76 L (3.80-4.90) g/dL Eopyl-8-Hongecgqx 0.61 H (0.10-0.40) g/dL Ypskw-9-Wlqzbmrot 1.21 H (0.60-1.00) g/dL Beta Globulins 0.45 L (0.60-1.30) g/dL Gamma Globulins 0.46 L (0.70-1.50) g/dL Angiotensin Convert Enz (8-52) U/L Vitamin D 25-Hydroxy (30.0-100.0) ng/mL Free [place] LC, Quant 8.85 H (0.33-1.94) mg/dL Free Lambda LC, Quant 9.46 H (0.57-2.63) mg/dL 09/27/22 09/27/22 Range/Units 08:55 08:55 WBC 24.4 H (3.8-10.6) k/uL RBC 3.33 L (4.30-5.90) m/uL Hgb 10.3 L (13.0-17.5) gm/dL Hct 33.1 L (39.0-53.0) % RDW 17.0 H (11.5-15.5) % Neutrophils # (Manual) 20.40 H (1.3-7.7) k/uL Lymphocytes # (Manual) (1.0-4.8) k/uL Monocytes # (Manual) 1.46 H (0-1.0) k/uL Metamyelocytes # (Man) 0.49 H (0) k/uL Myelocytes # (Manual) 0.49 H (0) k/uL Nucleated RBCs (0-0) /100 WBC APTT 37.3 H (22.0-30.0) sec Sodium (137-145) mmol/L Chloride (98-107) mmol/L BUN (9-20) mg/dL Creatinine (0.66-1.25) mg/dL Glucose (74-99) mg/dL Alkaline Phosphatase (38-126) U/L C-Reactive Protein (<1.0) mg/dL Total Protein (6.3-8.2) g/dL Total Protein (PEP) (6.2-8.2) g/dL Albumin (3.5-5.0) g/dL Albumin (PEP) (3.80-4.90) g/dL Gnbgg-3-Mwmbioqtf (0.10-0.40) g/dL Jdhkg-2-Zlvytmcmd (0.60-1.00) g/dL Beta Globulins (0.60-1.30) g/dL Gamma Globulins (0.70-1.50) g/dL Angiotensin Convert Enz (8-52) U/L Vitamin D 25-Hydroxy (30.0-100.0) ng/mL Free [place] LC, Quant (0.33-1.94) mg/dL Free Lambda LC, Quant (0.57-2.63) mg/dL Microbiology - Last 24 Hours (Table) 09/22/22 06:11 Blood Culture - Preliminary Blood Assessment and Plan (1) Leukocytosis Current Visit: Yes Status: Acute Priority: Medium Code(s): D72.829 - ELEVATED WHITE BLOOD CELL COUNT, UNSPECIFIED SNOMED Code(s): 455524935 Plan: Leukocytosis/Thrombocythemia: -Hx of thrombocythemia since 2000. He has been on anagrelide 1mg BID since, with good control of platelet counts. -WBCs have ranged [id number] throughout this admission. After trending labs patient is normally in the 8000 range. -Hemoglobin 10.2. WBC were showing improvement, however WBC 24.4 today, platelets stable, 155,000.-Luekocytosis likely r/t to underlying MPN superimposed by infectious/inflammatory process and would suspect WBCs to decrease as pt recovers from acute condition -Anagrelide changed to BID from TID, and 81mg aspirin daily added
[2022-09-27 15:46] VITALS: RESP 16; TEMP 97.3
--- NOTE | 2022-09-27 15:59 | P.PN ---
Subjective Progress Note Date: 09/27/22 I was asked to transfer this patient yesterday to the ICU because of hypotension. His systolic blood pressure was as low as the 70s and for that reason the patient got transferred to the ICU. He is an 86-year-old male patient who was recently discharged from the hospital. He was in a hospital last month with a complete heart block and the patient received a temporary external pacemaker. He is known having complete heart block along with chronic diastolic heart failure and end-stage renal disease on peritoneal dialysis. He also has advanced dementia. The patient was hospitalized on 09/15/2022 due to concerns of confusion and hypoxemia. He was being managed on the medical floor. He was seen by various consultants including cardiology and nephrology. Initially was thought to be in some mild fluid overload and the patient was given CAPD exchanges with 4.25% solution alternating with 2.5% solution to help increase his ultrafiltration. He was also found to be in a manic and he was given Aranesp . Infectious disease was also involved in his care as the patient had an elevated white count. He remained afebrile. His breathing is comfortable and patient is currently on room air oxygen. No nausea or vomiting or abdominal pain. No diarrhea. After arriving to the ICU, the patient was given fluid boluses. The patient was given 1.5 L in addition to midodrine and his current blood pressure is 113/90. His cardiac rhythm is paced. Pulse ox is 94% on room air oxygen. Blood work from today is showing a white cell count of 19 with a hemoglobin of 10.3 and a platelet count of 183. Sodium is at 128, potassium is at 3.5, BUN is at 65 with a creatinine of 5.3. Peritoneal fluid was checked and it was negative for any infection. The body fluid from the peritoneal is also negative for culture. Blood culture is negative thus far. The patient is currently on IV cefepime per IDs recommendation. He is also taking Eraxis. Chest x-ray was done on 09/20/2022 shows some cardiomegaly without any acute abnormalities. His most recent echocardiogram from 08/19/2022 showed a left posterior ejection fraction 45-50% along with moderate to severe mitral regurgitation. His swallow evaluation done on 09/19/2022 was showing some mild delayed swallow with residual no penetration or aspiration. Reevaluated today on 09/23/2022, patient remains in the ICU, hemodynamically stable, not requiring any pressors. When patient was transferred to the ICU back on 09/21 he had a brief course of norepinephrine for hypotension. This has resolved, patient has been off norepinephrine for the last 24 hours. Remains empirically on cefepime and vancomycin, he has external temporary pacemaker in place, patient is supposed to be transferred out of the ICU to a monitor bed on selective. Pulmonary-guevara is doing well, on 2 L nasal cannula, not in any distress. Still undergoing peritoneal dialysis. And being followed by nephrology. Patient is being considered for permanent pacemaker implantation, however the decision is not finally made by cardiology regarding whether he has to have permanent pacemaker placement. WBC count today 17.9, improving hemoglobin is 9.9 about the same electrolytes showed low sodium of 127 low potassium of 3.0 BUN is 63 creatinine 5.09. C-reactive protein is 18.2. Chest x-ray showed mild congestive heart failure changes Reevaluated today on , patient is now on cardiac floor, I saw him yesterday when he was in the ICU. Patient is doing well, he is hemodynamically stable, not in any distress, sodium is better today up to 130, his renal functio bernabe remains poor the BUN of 63 creatinine 4.90 patient is on hemodialysis. Bicarb is 26. WBC count is 13.6 hemoglobin is 10.2. Patient remains on 2 L nasal cannula with O2 sats of 94% patient is being considered for permanent pacemaker implantation, he was already cleared by infectious disease on the case. Blood cultures and peritoneal cultures have been negative all along. Empirically the patient is on Eraxis, is also on cefepime. Patient is also on vancomycin. Peritoneal fluid from his peritoneal catheter has been negative so far Patient was reevaluated today on 09/26/2022, patient seems to be stable from the pulmonary perspective. He is on room air, not in distress, but he seems to be quite confused. Patient underwent permanent pacemaker implantation yesterday, without any complications. Pulmonary-guevara he denies any shortness of breath, no cough, no wheezing, patient was seen by vascular surgery for ischemic changes noted in bilateral lower extremities, recommending heparin drip, and recommending CTA abdomen aorta with runoff has been ordered. In the meantime the patient was placed on heparin by vascular surgery. Labs today showed WBC count of 16.0 hemoglobin is 10.7. Abnormal renal profile with a BUN of 63 creatinine 4.85, patient is on peritoneal dialysis. Patient is being followed by many consultants at this point, including cardiology vascular surgery, and nephrology. And infectious disease as well as hematology/oncology. The patient is seen today 09/27/2022 in follow-up on the selective care unit. He is currently maintaining O2 saturations in the mid 90s on room air. He's afebrile. Hemodynamically stable. He unfortunately is quite weak and pau litated. His family is at the bedside. His creatinine continues to climb is currently at 5.29. BUN 62. White count 24.4. Hemoglobin 10.3. Platelets 155. Sodium 134. Potassium 3.5. Bicarb 25. Blood glucose 135. Pro calcitonin 2.21. Peritoneal fluid culture reveals no growth. Urine culture no growth. Blood cultures no growth. He remains on antibiotics in the form of cefepime and vancomycin. Remains on Eraxis. Heparin for DVT prophylaxis. Objective - Vital Signs Vital signs: Vital Signs Temp 97.3 F L 09/27/22 15:45 Pulse 64 09/27/22 15:45 Resp 16 09/27/22 15:45 BP 107/45 09/27/22 15:45 Pulse Ox 95 09/27/22 15:45 FiO2 21 09/27/22 08:11 Intake & Output 09/26/22 09/27/22 09/27/22 18:59 06:59 18:59 Intake Total 198 Balance 198 Weight 63 kg Intake: IV 50 Cefepime 1 gm In Sodium 50 Chloride 0.9% 50 ml @ 12. 5 mls/hr IVPB Q24HR [facility] Rx#:[id number] Oral 148 Other: Voiding Method Diaper Diaper CAPD CAPD # Voids 1 # Bowel Movements 1 1 2 - Exam Physical Exam: Revealed a frail, weak, 86-year-old male in no distress. On room air. Patient is confused. Head: Atraumatic, normocephalic. HEENT: Neck is supple. No neck masses. No thyromegaly. No JVD. Left subclavian pacer in place. Chest: Symmetrical chest expansion minimal fine crackles at the bases no rhonchi and no wheezes Cardiac Exam: Normal S1 and S2, no S3 gallop,2/6 systolic murmur thought the precordium. Abdomen: Soft, nontender, no megaly, no rebound, no guarding, normal bowel sounds. Peritoneal dialysis catheter is noted Extremities:Palpable bounding bilateral femoral pulses, bilateral popliteal Doppler signal present. Diminished distal pulses bilaterally. Bilateral feet and toes purple, mottled. Left foot second toe distal tip with wound, fourth toe wound to dorsal aspect, no drainage or redness. Right foot third toe wound to dorsal aspect, dry, no drainage or redness. Bilateral heel pressure wounds Neurological Exam: Confused, not oriented to place time or person. Psychiatric: Normal mood, affect but definitely more confused today compared to the last few days - Labs CBC & Chem 7: 09/27/22 08:55 09/27/22 08:55 Labs: Abnormal Lab Results - Last 24 Hours (Table) 09/26/22 09/26/22 09/26/22 Range/Units 15:56 15:56 15:56 WBC (3.8-10.6) k/uL RBC (4.30-5.90) m/uL Hgb (13.0-17.5) gm/dL Hct (39.0-53.0) % RDW (11.5-15.5) % Neutrophils # (Manual) (1.3-7.7) k/uL Lymphocytes # (Manual) (1.0-4.8) k/uL Monocytes # (Manual) (0-1.0) k/uL Metamyelocytes # (Man) (0) k/uL Myelocytes # (Manual) (0) k/uL Nucleated RBCs (0-0) /100 WBC APTT 56.5 H (22.0-30.0) sec Sodium (137-145) mmol/L Chloride (98-107) mmol/L BUN (9-20) mg/dL Creatinine (0.66-1.25) mg/dL Glucose (74-99) mg/dL Alkaline Phosphatase (38-126) U/L C-Reactive Protein (<1.0) mg/dL Total Protein (6.3-8.2) g/dL Total Protein (PEP) (6.2-8.2) g/dL Albumin (3.5-5.0) g/dL Albumin (PEP) (3.80-4.90) g/dL Ghyoe-2-Qjmtctwja (0.10-0.40) g/dL Zhefq-9-Jsonyvcoy (0.60-1.00) g/dL Beta Globulins (0.60-1.30) g/dL Gamma Globulins (0.70-1.50) g/dL Angiotensin Convert Enz 4 L (8-52) U/L Vitamin D 25-Hydroxy 18.9 L (30.0-100.0) ng/mL Procalcitonin (0.02-0.09) ng/mL Free [place] LC, Quant (0.33-1.94) mg/dL Free [place]ambda LC, Quant (0.57-2.63) mg/dL 09/26/22 09/27/22 09/27/22 Range/Units 15:56 01:05 08:55 WBC 22.7 H (3.8-10.6) k/uL RBC 3.31 L (4.30-5.90) m/uL Hgb 10.2 L (13.0-17.5) gm/dL Hct 33.0 L (39.0-53.0) % RDW 16.7 H (11.5-15.5) % Neutrophils # (Manual) 21.30 H (1.3-7.7) k/uL Lymphocytes # (Manual) 0.45 L (1.0-4.8) k/uL Monocytes # (Manual) (0-1.0) k/uL Metamyelocytes # (Man) 0.91 H (0) k/uL Myelocytes # (Manual) (0) k/uL Nucleated RBCs 1 H (0-0) /100 WBC APTT (22.0-30.0) sec Sodium (137-145) mmol/L Chloride (98-107) mmol/L BUN (9-20) mg/dL Creatinine (0.66-1.25) mg/dL Glucose (74-99) mg/dL Alkaline Phosphatase (38-126) U/L C-Reactive Protein (<1.0) mg/dL Total Protein (6.3-8.2) g/dL Total Protein (PEP) 4.5 L (6.2-8.2) g/dL Albumin (3.5-5.0) g/dL Albumin (PEP) 1.76 L (3.80-4.90) g/dL Jogkw-1-Mqysleuxv 0.61 H (0.10-0.40) g/dL Xncdg-0-Gwokqlnge 1.21 H (0.60-1.00) g/dL Beta Globulins 0.45 L (0.60-1.30) g/dL Gamma Globulins 0.46 L (0.70-1.50) g/dL Angiotensin Convert Enz (8-52) U/L Vitamin D 25-Hydroxy (30.0-100.0) ng/mL Procalcitonin 2.21 H (0.02-0.09) ng/mL Free [place] LC, Quant 8.85 H (0.33-1.94) mg/dL Free Lambda LC, Quant 9.46 H (0.57-2.63) mg/dL 09/27/22 09/27/22 09/27/22 Range/Units 08:55 08:55 08:55 WBC 24.4 H (3.8-10.6) k/uL RBC 3.33 L (4.30-5.90) m/uL Hgb 10.3 L (13.0-17.5) gm/dL Hct 33.1 L (39.0-53.0) % RDW 17.0 H (11.5-15.5) % Neutrophils # (Manual) 20.40 H (1.3-7.7) k/uL Lymphocytes # (Manual) (1.0-4.8) k/uL Monocytes # (Manual) 1.46 H (0-1.0) k/uL Metamyelocytes # (Man) 0.49 H (0) k/uL Myelocytes # (Manual) 0.49 H (0) k/uL Nucleated RBCs (0-0) /100 WBC APTT 37.3 H (22.0-30.0) sec Sodium 134 L (137-145) mmol/L Chloride 96 L (98-107) mmol/L BUN 62 H (9-20) mg/dL Creatinine 5.29 H (0.66-1.25) mg/dL Glucose 135 H (74-99) mg/dL Alkaline Phosphatase 415 H (38-126) U/L C-Reactive Protein 18.2 H (<1.0) mg/dL Total Protein 4.8 L (6.3-8.2) g/dL Total Protein (PEP) (6.2-8.2) g/dL Albumin 2.3 L (3.5-5.0) g/dL Albumin (PEP) (3.80-4.90) g/dL Bkvio-6-Pqcxwnzcw (0.10-0.40) g/dL Zbemj-7-Ktxedpbem (0.60-1.00) g/dL Beta Globulins (0.60-1.30) g/dL Gamma Globulins (0.70-1.50) g/dL Angiotensin Convert Enz (8-52) U/L Vitamin D 25-Hydroxy (30.0-100.0) ng/mL Procalcitonin (0.02-0.09) ng/mL Free Crouse LC, Quant (0.33-1.94) mg/dL Free Lambda LC, Quant (0.57-2.63) mg/dL Microbiology - Last 24 Hours (Table) 09/22/22 06:11 Blood Culture - Preliminary Blood Assessment and Plan Assessment: Hypotension most likely related to abnormal fluid balance, likely hypovolemic in nature History of complete heart block , status post permanent pacemaker implantation on 09/25/2022 Moderate severe mitral regurgitation End-stage renal disease, on peritoneal dialysis. Worsening dementia and impaired cognitive function Anemia of chronic disease Electrolytes imbalance secondary to his renal failure and peritoneal dialysis Stage II coccygeal ulcer Acute on chronic bilateral lower extremities ischemia with bilateral to once and bilateral pressure ulcers to heels/ being addressed by vascular surgery on the case. In the meantime patient is on heparin Plan: The patient was seen and evaluated Labs and medications reviewed More weak and confused today Family is at the bedside Overall prognosis is poor He is a DNR/DNI CODE STATUS Currently on room air We will see as needed I have personally seen and examined the patient, performed the documentation and the assessment and plan as written. Number of minutes spent on the visit: 10.
--- NOTE | 2022-09-27 17:57 | P.DS ---
Providers Date of admission: 09/19/22 12:48 Expected date of discharge: 09/27/22 Attending physician: Garland Glass MD Consults: 09/15/22 00:54 Consult Physician Routine Consulting Provider: Marci Harris Consult Reason/Comments: capd Do you want consulting provider notified?: Yes 09/15/22 04:43 Consult Physician Routine Consulting Provider: Hussain Carmichael Consult Reason/Comments: syncope Do you want consulting provider notified?: Yes, Notify in am 09/18/22 16:47 Consult Physician Routine Consulting Provider: Megan Monterroso Consult Reason/Comments: leukocytosis Do you want consulting provider notified?: Yes 09/22/22 07:22 Consult Physician Routine Consulting Provider: Yvonne Whitley Consult Reason/Comments: hypotension, leukocytosis Do you want consulting provider notified?: Yes 09/22/22 11:38 Consult Physician Routine Consulting Provider: Sivakumar Wheat Consult Reason/Comments: chronically elevated wbc Do you want consulting provider notified?: Yes 09/26/22 09:07 Consult Physician Routine Consulting Provider: Silverio Nicole Consult Reason/Comments: ischemic limbs bilateral Do you want consulting provider notified?: Yes Primary care physician: Halie Ruffin Hospital Course: Discharge Diagnosis: Acute exacerbation of diastolic congestive heart failure Bilateral lower extremity ischemia with 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 Leukocytosis, thrombocytopenia Acute metabolic encephalopathy with leukocytosis Bilateral heel wounds present on admission End-stage renal disease on Peritoneal Dialysis Chronic troponin elevation Syncopal episode possibly related to hypoxia Acute hypoxic respiratory failure Hyponatremia Hypokalemia Hypomagnesemia Hypertension anemia associated with end-stage renal disease third-degree AV block status Hospital Course: Patient is an 86-year-old male with a history of end-stage renal disease on peritoneal dialysis with intermittent hemodialysis, chronic diastolic heart failure, hypertension, and gout who presented to the emergency department with altered mentation. Of note patient was admitted from 08/17 through 08/26 after a syncopal episode. During that hospital stay he was diagnosed with third degree heart block and had an external generator with plans to follow up with cardiology for permanent pacemaker implantation. He was again admitted for altered mentation and hypoxia from 4:30 through 09/14 and found to be in volume overload. His fluid status was managed by nephrology with dialysis and he was discharged saturating well on room air. He returned to the hospital on 09/14 for a syncopal episode, hypoxia, and confusion. During this hospital stay nephrology was consulted and patient was resumed on peritoneal dialysis. Cardiology was also consulted for placement of permanent pacemaker. He did have an elevated white blood cell count of 22.9. He did develop constipation and KUB demonstrated ileus/fecal stasis. CT head was ordered for worsening confusion which showed low attenuation in the parietal lobe. Similar to previous. He was started on lactulose. On 09/19 infectious disease was consulted for worsening leukocytosis and the patient was switched from cefdinir to cefepime. Blood, urine, and peritoneal cultures were negative. Pro-calcitonin was elevated at 12.6, however this can be elevated and patient with end-stage renal disease. On 09/22 the patient was transferred to the ICU for hypotension with blood pressures in the 70s. He received multiple boluses due to his hypotension. He was started on Minitran and hydralazine and lisinopril were discontinued. He was then started on eraxis by infectious disease. Hematology was consulted for chronic leukocytosis. Case was discussed with Dr. Wheat and patient has a history of leukocytosis his anegeralide was in creased. He underwent PPM on 09/25/22. On the morning of 09/25 he was noted to have a dusky appearance in his bilateral feet. SUZIE was obtained which was unable to detect adequate flow bilaterally. Patient was seen by vascular surgery who felt that surgery would not be in the patient's best benefit due to his multiple comorbid conditions. On the morning of 09/27 he had increased lethargy. He was seen by speech therapy and had inability to swallow Recommended nothing by mouth status. Family and discussed his care with vascular surgery pulmonary nephrology and myself. They elected to meet with hospice. Patient was subsequently discharged to general inpatient hospice. Patient seen and examined at bedside. He is lethargic and minimally responsive today. He is in the lateral recumbent position. Multiple family members were at bedside and all questions were answered. Vital signs reviewed and stable. General: nontoxic, no distress, appears at stated age Derm: warm, dry Head: atraumatic, normocephalic, symmetric Mouth: no lip lesion, mucus membranes dry Cardiovascular: S1S2 reg, no murmur, positive posterior tibial pulse bilateral, Lungs: Decreased breath sounds bilateral, no rhonchi, no rales , no accessory muscle use Psych: Somnolent A total of 42 minutes of time were spent preparing this complex discharge summary. Patient was discharged on 09/27/22. This dictation was prepared using [employer] voice recognition software. Though every attempt is made to correct errors during during dictation some may still exist. Plan - Discharge Summary Discharge Rx Participant: Yes New Discharge Prescriptions: No Action Tamsulosin HCl [Flomax] 0.4 mg PO BID Anagrelide HCl [Agrylin] 1 mg PO TID Vit B Complx C/Folic Acid/Zinc [Renaplex Tablet] 1 tab PO DAILY allopurinoL [Zyloprim] 100 mg PO DAILY Pantoprazole Sodium [Protonix] 40 mg PO DAILY Lidocaine 5% Patch [Lidoderm 5% Patch] 1 patch TRANSDERM DAILY Acetaminophen Tab [Tylenol] 650 mg PO Q4H PRN PRN Reason: Fever And/ Or Pain Calcium Carbonate [Tums] 1,000 mg PO TID hydrALAZINE HCL [Apresoline] 50 mg PO BID calcitrioL [Calcitriol] 0.25 mcg PO MOTUWETHFR Darbepoetin Abraham [Aranesp] 40 mcg SQ Q7D #30 each lisinopriL [Zestril] 5 mg PO DAILY #90 tab Discharge Medication List Tamsulosin HCl [Flomax] 0.4 mg PO BID 05/24/14 [History] Anagrelide HCl [Agrylin] 1 mg PO TID 11/08/20 [History] Vit B Complx C/Folic Acid/Zinc [Renaplex Tablet] 1 tab PO DAILY 03/19/21 [History] Acetaminophen Tab [Tylenol] 650 mg PO Q4H PRN 08/17/22 [History] Calcium Carbonate [Tums] 1,000 mg PO TID 08/17/22 [History] Pantoprazole Sodium [Protonix] 40 mg PO DAILY 08/17/22 [History] allopurinoL [Zyloprim] 100 mg PO DAILY 08/17/22 [History] calcitrioL [Calcitriol] 0.25 mcg PO MOTUWETHFR 08/17/22 [History] hydrALAZINE HCL [Apresoline] 50 mg PO BID 08/17/22 [History] Darbepoetin Abraham [Aranesp] 40 mcg SQ Q7D #30 each 08/27/22 [Rx] lisinopriL [Zestril] 5 mg PO DAILY #90 tab 08/27/22 [Rx] Lidocaine 5% Patch [Lidoderm 5% Patch] 1 patch TRANSDERM DAILY 09/14/22 [History] Follow up Appointment(s)/Referral(s): Halie Ruffin MD [Primary Care Provider] - 1-2 days [facility] [NON-STAFF] - 1 Week Annette Stover MD [STAFF PHYSICIAN] - 09/30/22 1:15 pm Discharge Disposition: [facility] TO [facility]
[2022-09-27 20:13] VITALS: BP 103/41; PULSE 65
[2022-09-27 22:14] LABS: Vitamin D, 1, 25-Dihydroxy 14 pg/mL (20 - 79)
--- NOTE | 2022-09-27 22:54 | PN ---
PROGRESS NOTE SUBJECTIVE: This is an 86-year-old gentleman with complex and multiple medical problems that we are involved in the care of secondary to bradycardia. He underwent a permanent pacemaker 2 days ago, doing well. Pacemaker is functioning appropriately. He has severe peripheral arterial disease and thought not to be a candidate for surgery. OBJECTIVE: GENERAL: The patient is pleasantly confused. VITAL SIGNS: Stable. CHEST: Reveals good air entry bilaterally. HEART: First and second heart sounds, ejection systolic murmur in the aortic area. ABDOMEN: Soft. EXTREMITIES: Show dry gangrene. LABORATORY DATA: Labs showed a hemoglobin of 10.3, white cell count is 24, potassium is 3.5, BUN is 6.2, and creatinine is 5.2. ASSESSMENT: 1. Complete heart block, status post permanent pacemaker. 2. Peripheral artery disease. 3. Renal failure. Prognosis is guarded. From cardiac standpoint, pacemaker is functioning normally. No other interventions at this time. MMODL / IJN: [id number] /
--- NOTE | 2022-09-30 11:50 | US ---
EXAMINATION TYPE: US arterial LE multi level DATE OF EXAM: 09/25/2022 3:48 PM CLINICAL INDICATION: Male, 86 years old with history of SUZIE/TBI DX: PAD; wounds on bilat heels, skin color changes and wounds on bilat toes History of: Smoker: No Hypertension: Yes Diabetic: No Hyperlipidemia: No TIA/CVA: No Previous Vascular Surgery: No CAD: No FL: No Vascular Ulcers: Bilateral Claudication: No Gangrene: No Doppler Waveforms: Right: Left: Pressure Gradients: Right Brachial Pressure: 112 Left Brachial Pressure: IV in arm Ankle-Brachial Indices: Technically difficult exam. Unable to obtain waveforms at right DP, and left PT and DP, inaudible. Se cond pharmacy technologist also unable to obtain these waveforms Toe Brachial Indices: no waveforms IMPRESSION: Nondiagnostic study.
== END 2022-09-27 17:22 | disposition hospice, inpatient (51) | DRG 242 ==
LOC: EC 18:46 → 3SCARD 22:39 → OBSVTOIN 09-19 12:48 → 2SICU 09-22 03:21 → 3SCARD 09-24 02:37
PROVIDERS: ADMIT Internal Medicine; ATTEND Internal Medicine
PROC: 02H63JZ Insertion of Pacemaker Lead into Right Atrium, Percutaneous Approach (ICD-10-PCS; principal; 2022-09-25 10:30)
PROC: 2W54XYZ Removal of Other Device on Chest Wall (ICD-10-PCS; principal; 2022-09-25 10:30)
PROC: 02HK3JZ Insertion of Pacemaker Lead into Right Ventricle, Percutaneous Approach (ICD-10-PCS; principal; 2022-09-25 10:30)
PROC: 0JH606Z Insertion of Pacemaker, Dual Chamber into Chest Subcutaneous Tissue and Fascia, Open Approach (ICD-10-PCS; principal; 2022-09-25 10:30)
DX: I44.2 Atrioventricular block, complete (principal); G93.41 Metabolic encephalopathy; I50.33 Acute on chronic diastolic (congestive) heart failure; J18.9 Pneumonia, unspecified organism; J96.01 Acute respiratory failure with hypoxia; N18.6 End stage renal disease; E87.1 Hypo-osmolality and hyponatremia; I13.2 Hypertensive heart and chronic kidney disease with heart failure and with stage 5 chronic kidney disease, or end stage renal disease; K56.7 Ileus, unspecified; N17.9 Acute kidney failure, unspecified; D63.1 Anemia in chronic kidney disease; D69.6 Thrombocytopenia, unspecified; D73.4 Cyst of spleen; Z51.5 Encounter for palliative care; Z66 Do not resuscitate; I70.201 Unspecified atherosclerosis of native arteries of extremities, right leg; L89.151 Pressure ulcer of sacral region, stage 1; I70.0 Atherosclerosis of aorta; E83.9 Disorder of mineral metabolism, unspecified; I71.21 Aneurysm of the ascending aorta, without rupture; L89.622 Pressure ulcer of left heel, stage 2; F03.B0 Unspecified dementia, moderate, without behavioral disturbance, psychotic disturbance, mood disturbance, and anxiety; I95.9 Hypotension, unspecified; L89.610 Pressure ulcer of right heel, unstageable; Z86.74 Personal history of sudden cardiac arrest; Z99.2 Dependence on renal dialysis; R77.8 Other specified abnormalities of plasma proteins; I25.10 Atherosclerotic heart disease of native coronary artery without angina pectoris; E83.42 Hypomagnesemia; E83.52 Hypercalcemia; D50.9 Iron deficiency anemia, unspecified; K59.00 Constipation, unspecified; I34.0 Nonrheumatic mitral (valve) insufficiency; E86.1 Hypovolemia; D72.829 Elevated white blood cell count, unspecified; M10.9 Gout, unspecified; N40.0 Benign prostatic hyperplasia without lower urinary tract symptoms; E87.6 Hypokalemia; Z91.81 History of falling; R13.10 Dysphagia, unspecified; Z79.899 Other long term (current) drug therapy; Z80.51 Family history of malignant neoplasm of kidney; Z82.49 Family history of ischemic heart disease and other diseases of the circulatory system; Z28.311 Partially vaccinated for COVID-19; Z28.21 Immunization not carried out because of patient refusal; Z89.021 Acquired absence of right finger(s); Z71.3 Dietary counseling and surveillance
CPT/HCPCS: 33208; 36415; 70450; 71045; 71046; 72128; 74018; 74230; 75635; 80048; 80053; 80202; 81001; 82164; 82306; 82652; 82803; 83605; 83735; 83880; 83883; 83970; 84145; 84165; 84484; 85025; 85027; 85610; 85730; 86140; 86334; 87040; 87070; 87086; 87205; 89050; 93005; 93308; 93922; 93923; 94760; 96374; 99285

== ENCOUNTER 2022-09-27 13:52 | Inpatient (IN) | payer MEDICAID ==
[2022-09-27] MEDS ORDERED: ONDANSETRON 4 MG/2 ML VIAL IVP PRN (16:08)
[2022-09-27] MEDS ORDERED: MORPHINE SULFATE 2 MG/ML SYRINGE IV PRN (16:08)
[2022-09-27] MEDS ORDERED: LORazepam 2 MG/ML INJ IV PRN (16:08)
[2022-09-27] MEDS ORDERED: ACETAMINOPHEN SUPPOSITORY 650 MG SUPP RECTAL PRN (16:08)
[2022-09-27] MEDS ORDERED: SCOPOLAMINE 1 MG/72 HR PATCH TRANSDERM SCH (16:15)
[2022-09-27] MEDS ORDERED: MORPHINE SULFATE (100 MG/2 ML) 100 MG in SODIUM CHLORIDE 0.9% 100 ML IV SCH (16:15)
[2022-09-27 23:54] VITALS: PULSE 60
[2022-09-28 04:53] VITALS: RESP 18
--- NOTE | 2022-09-28 08:11 | P.HPIM ---
History of Present Illness H&P Date: 09/28/22 Patient is an 86-year-old male with a history of end-stage renal disease on peritoneal dialysis with intermittent hemodialysis, chronic diastolic heart failure, hypertension, and gout who presented to the emergency department with altered mentation. He had a prolonged hospital course consisting of treatment of an acute exacerbation of diastolic heart failure, possible infectious source, implantation of his external permanent pacemaker and ended with development of bilateral lower extremity ischemia. After long discussion with family they decided to proceed with hospice care. He was admitted to [facility] hospice on 09/27/22. Unfortunately the patient prior to meeting able to examine him on hospice services . Assessment: Bilateral lower extremity ischemia with chronic right posterior tibial artery occlusion and anterior tibial artery occlusion on the left Acute exacerbation of diastolic congestive heart failure 3rd degree AV block s/p implanted pacer on 09/25/22 Acute metabolic encephalopathy with leukocytosis Bilateral heel wounds present on admission End-stage renal disease on Peritoneal Dialysis Acute hypoxic respiratory failure Hypertension anemia associated with end-stage renal disease Plan: - Hospice care with morphine gtt, ativan There is no billing associated with this note This dictation was prepared using [employer] voice recognition software. Though every attempt is made to correct errors during during dictation some may still exist. Past Medical History Past Medical History: Heart Failure, Dialysis, Hypertension, Prostate Disorder, Renal Disease Additional Past Medical History / Comment(s): CURRENTLY DOING HEMODIALYSIS @ [facility] ([facility]). Thrombocytemia/elevated platelets. CKD stage IV. Anemia. BPH. 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 R hand index finger injury/partial amp. Colonoscopy. peritoneal di alysis Past Anesthesia/Blood Transfusion Reactions: No Reported Reaction Type of Cardiac Device: Permanent Pacemaker Device Placement Date:: 09/09/22 Past Psychological History: No Psychological Hx Reported Smoking Status: Never smoker Past Alcohol Use History: Rare Past Drug Use History: None Reported - Past Family History Father Family Medical History: Cancer, Hypertension, Renal Disease Additional Family Medical History / Comment(s): Kidney Cancer Mother Family Medical History: No Reported History Additional Family Medical History / Comment(s): Mother was healthy Medications and Allergies Home Medications Medication Instructions Recorded Confirmed Type Tamsulosin HCl [Flomax] 0.4 mg PO BID 05/24/14 09/27/22 History Anagrelide HCl [Agrylin] 1 mg PO TID 11/08/20 09/27/22 History Vit B Complx C/Folic Acid/Zinc 1 tab PO DAILY 03/19/21 09/27/22 History [Renaplex Tablet] Acetaminophen Tab [Tylenol] 650 mg PO Q4H PRN 08/17/22 09/27/22 History Calcium Carbonate [Tums] 1,000 mg PO TID 08/17/22 09/27/22 History Pantoprazole Sodium [Protonix] 40 mg PO DAILY 08/17/22 09/27/22 History allopurinoL [Zyloprim] 100 mg PO DAILY 08/17/22 09/27/22 History calcitrioL [Calcitriol] 0.25 mcg PO MOTUWETHFR 08/17/22 09/27/22 History hydrALAZINE HCL [Apresoline] 50 mg PO BID 08/17/22 09/27/22 History Darbepoetin Abraham [Aranesp] 40 mcg SQ Q7D #30 each 08/27/22 09/27/22 Rx lisinopriL [Zestril] 5 mg PO DAILY #90 tab 08/27/22 09/27/22 Rx Lidocaine 5% Patch [Lidoderm 5% 1 patch TRANSDERM DAILY 09/14/22 09/27/22 History Patch] Allergies Allergy/AdvReac Type Severity Reaction Status Date / Time No Known Allergies Allergy Verified 09/14/22 20:41 Physical Exam Osteopathic Statement: *. No significant issues noted on an osteopathic structural exam other than those noted in the History and Physical/Consult. Vitals: Vital Signs Pulse Resp 09/28/22 04:00 18 09/28/22 01:02 24 09/27/22 20:00 60 20 09/27/22 18:35 77 20 Intake and Output 09/27/22 09/28/22 09/28/22 22:59 06:59 14:59 Intake Total 5.729 13.124 Balance 5.729 13.124 Intake: Intake, IV Titration 5.729 13.124 Amount Morphine Sulfate (100 mg/ 5.729 13.124 2 ml) 100 mg In Sodium Chloride 0.9% 100 ml @ 1 MG/HR 1.02 mls/hr IV . Q24H [facility] Rx#:[id number] Oral 0
--- NOTE | 2022-09-28 08:11 | P.DS ---
Providers Date of admission: 09/27/22 17:30 Expected date of discharge: 09/28/22 Attending physician: Roselyn Wright DO Primary care physician: Halie Ruffin Hospital Course: Discharge Diagnosis: Bilateral lower extremity ischemia with chronic right posterior tibial artery occlusion and anterior tibial artery occlusion on the left Acute exacerbation of diastolic congestive heart failure 3rd degree AV block s/p implanted pacer on 09/25/22 Acute metabolic encephalopathy with leukocytosis Bilateral heel wounds present on admission End-stage renal disease on Peritoneal Dialysis Acute hypoxic respiratory failure Hypertension anemia associated with end-stage renal disease Hospital Course: Patient is an 86-year-old male with a history of end-stage renal disease on peritoneal dialysis with intermittent hemodialysis, chronic diastolic heart failure, hypertension, and gout who presented to the emergency department with altered mentation. He had a prolonged hospital course consisting of treatment of an acute exacerbation of diastolic heart failure, possible infectious source, implantation of his external permanent pacemaker and ended with development of bilateral lower extremity ischemia. After long discussion with family they decided to proceed with hospice care. He was admitted to [facility] hospice on 09/27/22. He passed peacefully on 09/28/22 at 0748. There is no billing associated with this note. This dictation was prepared using [employer] voice recognition software. Though every attempt is made to correct errors during during dictation some may still exist. Plan - Discharge Summary New Discharge Prescriptions: No Action Tamsulosin HCl [Flomax] 0.4 mg PO BID Anagrelide HCl [Agrylin] 1 mg PO TID Vit B Complx C/Folic Acid/Zinc [Renaplex Tablet] 1 tab PO DAILY allopurinoL [Zyloprim] 100 mg PO DAILY Pantoprazole Sodium [Protonix] 40 mg PO DAILY Lidocaine 5% Patch [Lidoderm 5% Patch] 1 patch TRANSDERM DAILY Acetaminophen Tab [Tylenol] 650 mg PO Q4H PRN PRN Reason: Fever And/ Or Pain Calcium Carbonate [Tums] 1,000 mg PO TID hydrALAZINE HCL [Apresoline] 50 mg PO BID calcitrioL [Calcitriol] 0.25 mcg PO MOTUWETHFR Darbepoetin Abraham [Aranesp] 40 mcg SQ Q7D #30 each lisinopriL [Zestril] 5 mg PO DAILY #90 tab Discharge Medication List Tamsulosin HCl [Flomax] 0.4 mg PO BID 05/24/14 [History] Anagrelide HCl [Agrylin] 1 mg PO TID 11/08/20 [History] Vit B Complx C/Folic Acid/Zinc [Renaplex Tablet] 1 tab PO DAILY 03/19/21 [His tory] Acetaminophen Tab [Tylenol] 650 mg PO Q4H PRN 08/17/22 [History] Calcium Carbonate [Tums] 1,000 mg PO TID 08/17/22 [History] Pantoprazole Sodium [Protonix] 40 mg PO DAILY 08/17/22 [History] allopurinoL [Zyloprim] 100 mg PO DAILY 08/17/22 [History] calcitrioL [Calcitriol] 0.25 mcg PO MOTUWETHFR 08/17/22 [History] hydrALAZINE HCL [Apresoline] 50 mg PO BID 08/17/22 [History] Darbepoetin Abraham [Aranesp] 40 mcg SQ Q7D #30 each 08/27/22 [Rx] lisinopriL [Zestril] 5 mg PO DAILY #90 tab 08/27/22 [Rx] Lidocaine 5% Patch [Lidoderm 5% Patch] 1 patch TRANSDERM DAILY 09/14/22 [History]
== END 2022-09-28 07:48 | disposition expired | DRG 951 ==
LOC: 3SCARD 17:30 → 4SSUR 09-28 01:55
PROVIDERS: ADMIT Internal Medicine; ATTEND Internal Medicine
DX: Z51.5 Encounter for palliative care (principal); N18.6 End stage renal disease; J96.01 Acute respiratory failure with hypoxia; G93.41 Metabolic encephalopathy; I50.33 Acute on chronic diastolic (congestive) heart failure; I13.2 Hypertensive heart and chronic kidney disease with heart failure and with stage 5 chronic kidney disease, or end stage renal disease; F03.90 Unspecified dementia, unspecified severity, without behavioral disturbance, psychotic disturbance, mood disturbance, and anxiety; D63.1 Anemia in chronic kidney disease; D72.829 Elevated white blood cell count, unspecified; I70.201 Unspecified atherosclerosis of native arteries of extremities, right leg; N40.0 Benign prostatic hyperplasia without lower urinary tract symptoms; I99.8 Other disorder of circulatory system; Z79.899 Other long term (current) drug therapy; M10.9 Gout, unspecified; D64.9 Anemia, unspecified; S91.302A Unspecified open wound, left foot, initial encounter; S91.301A Unspecified open wound, right foot, initial encounter; D69.6 Thrombocytopenia, unspecified; Z99.2 Dependence on renal dialysis; Z95.0 Presence of cardiac pacemaker; Z82.49 Family history of ischemic heart disease and other diseases of the circulatory system